=== PATIENT | female | born 1980 | race Caucasian/White ===

== ENCOUNTER 2021-09-16 07:35 | Inpatient (IN) ==
[2021-09-16] MEDS ORDERED: KETOROLAC 30 MG/ML VIAL IV ONE (07:52)
[2021-09-16] MEDS ORDERED: 0.9 % SODIUM CHLORIDE 1,000 ML IV ONE ×2 (07:52→08:40)
[2021-09-16] MEDS ORDERED: ONDANSETRON 4 MG/2 ML VIAL IV ONE (07:52)
--- NOTE | 2021-09-16 07:57 | Emergency Department Note ---
HPI General Chief complaint: Cold/Flu Symptoms Stated complaint: headache, sob, flank pain Time Seen by Provider: 09/16/21 07:38 Source: patient Mode of arrival: wheelchair Limitations: no limitations History of Present Illness HPI Narrative: Patient is a 41-year-old lady who arrives the emergency department by private vehicle accompanied by her complaining of left flank pain. The patient says she has been having pain over her left flank since yesterday. This was sudden in onset and is constantly present. The pain occasionally radiates into her left lower abdomen. She has associated fever and chills. She has had nausea but attributes this to recent medication change. She has not vomited. She does have an associated headache. She denies any associated cough or shortness of breath. She has not had any associated diarrhea or dysuria. Related Data Home Medications Medication Instructions Recorded Confirmed acetazolamide 500 mg 1,000 mg PO BID 01/14/16 09/16/21 capsule,extended release propranolol 10 mg tablet 40 mg PO DAILY 01/14/16 09/16/21 fluoxetine 20 mg capsule 80 mg PO DAILY cap 12/07/18 09/16/21 gabapentin 100 mg capsule 100 mg PO BID 12/07/18 09/13/21 insulin glargine 100 unit/mL 30 unit SUB-Q HS ml 12/07/18 09/13/21 subcutaneous solution etodolac 200 mg capsule 500 mg PO BID 08/11/21 09/16/21 loratadine 10 mg capsule 10 mg PO QDAY 08/11/21 09/13/21 tizanidine 2 mg capsule 4 - 8 mg PO 3-4XD 08/11/21 09/16/21 acetaminophen 300 mg-codeine 30 mg 1 tab PO TID PRN 09/07/21 09/13/21 tablet duloxetine 60 mg capsule,delayed 60 mg PO HS 09/07/21 09/16/21 release guaifenesin 600 mg tablet, 600 mg PO BID 09/07/21 09/16/21 extended release 12 hr rosuvastatin 10 mg tablet 20 mg PO QDAY 09/07/21 09/16/21 semaglutide 1 mg/dose (2 mg/1.5 1 mg SUBCUT QWEEK 09/07/21 09/13/21 mL) subcutaneous pen injector (Ozempic) vitamin d PO 09/07/21 09/13/21 codeine phosphate 60 mg hypodermic 60 mg ACHS 09/16/21 09/16/21 tablet Allergies Allergy/AdvReac Type Severity Reaction Status Date / Time glipizide Allergy Intermediate Fainting Verified 09/16/21 07:36 levofloxacin [From Levaquin] Allergy Dizziness Verified 09/16/21 07:36 metformin AdvReac Mild Rash Verified 09/16/21 07:36 Review of Systems ROS ROS Narrative: Narrative: All systems ED: reviewed and negative except as stated. Cardiovascular: Denies chest pain Gastrointestinal: Denies vomiting PFSH Narrative Patient History Narrative: Narrative: Medical/Surgical/Family History All Active Problems (Updated 09/16/21 @ 14:29 by Zak Rodríguez DO) Pyelonephritis (Acute) Sepsis (Acute) Acute hyperglycemia (Acute) Osteoarthritis of right hip (Acute) Neck pain (Chronic) Menorrhagia (Chronic) Borderline personality disorder (Chronic) Microscopic hematuria (Chronic) Hypertriglyceridemia (Chronic) Ureteric stone (Chronic) Hyperlipidemia (Chronic) Diabetes mellitus (Chronic) Allergic rhinitis (Chronic) Sinusitis (Chronic) Otitis media (Chronic) 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) Female pelvic inflammatory disease (Chronic) Pain in pelvis (Chronic) Nicotine dependence (Chronic) Ankle joint pain (Chronic) Right knee pain (Chronic) Knee injury (Chronic) Sprain of right ankle (Chronic) Anaphylaxis due to ingested food (Chronic) Pseudotumor cerebri (Chronic) Major depression (Chronic) Right hip pain (Chronic) Degeneration of lumbar intervertebral disc (Chronic) Other low back pain (Chronic) Strain of lumbar region (Chronic) Migraine (Chronic) Lumbar radiculopathy (Chronic) Injury of hand, right (Chronic) Hyperglycemia due to type 2 diabetes mellitus (Chronic) Hyperglycemia (Chronic) Dental abscess (Chronic) Anxiety disorder (Chronic) PTSD (post-traumatic stress disorder) (Chronic) Type 2 diabetes mellitus without complications (Chronic) GERD (gastroesophageal reflux disease) (Chronic) History of tobacco use (Chronic) Chronic depression (Chronic) Low back pain (Chronic) Opioid dependence, uncomplicated (Chronic) Chronic pain (Chronic) Urinary tract infection (Chronic) Viral meningitis (Chronic) Contusion, multiple sites (Chronic) Allergy, food (Chronic) Allergic reaction (Chronic) Ankle sprain and strain (Chronic) Medical History Allergic rhinitis Anaphylaxis due to ingested food Ankle joint pain Anxiety disorder Borderline personality disorder Chronic depression Chronic pain Contusion, multiple sites Degeneration of lumbar intervertebral disc Diabetes mellitus Female pelvic inflammatory disease GERD (gastroesophageal reflux disease) History of tobacco use HPV in female Hyperglycemia Hyperglycemia due to type 2 diabetes mellitus Hyperlipidemia Hypertriglyceridemia Injury of hand, right Knee injury Low back pain Lumbar radiculopathy Major depression Menorrhagia Microscopic hematuria Migraine Neck pain Nicotine dependence Opioid dependence, uncomplicated Other low back pain Otitis media Pain in pelvis Pseudotumor cerebri PTSD (post-traumatic stress disorder) Right hip pain Right knee pain Sinusitis Sprain of right ankle Strain of lumbar region Type 2 diabetes mellitus without complications Ureteric stone Urinary tract infection Viral meningitis Surgical History No pertinent past surgical history Family History Other No pertinent family history Social History Smoking Status: Current every day smoker Alcohol Intake Frequency: holiday/special occasion only Substance Use: does not use Exam Narrative Narrative: I reviewed the vital signs. Gen -patient is awake and alert and appears uncomfortable but in no acute distress. The patient is well groomed. HEENT -head is atraumatic. There is no conjunctival pallor or scleral icterus. Mucous membranes are moist. CV -S1-S2 regular rate and rhythm. Peripheral pulses are palpable. There is no JVD. Resp -breathing is nonlabored. Lungs are clear to auscultation bilaterally. There is no cyanosis. GI - Abdomen is soft and nontender to palpation. There is no guarding or rebound tenderness. There is exquisite left CVA tenderness to percussion. Derm -skin is warm and dry. There is no visible rash. MSK -present extremities are atraumatic. Psych -patient has appropriate affect. The patient does not appear internally stimulated. Neuro -patient answers questions appropriately with fluent speech. Patient moves all present extremities equally. General Limitations: no limitations Course Vital Signs Vital signs: Vital Signs Temperature 97.0 F 09/16/21 07:36 Pulse Rate 94 H 09/16/21 07:36 Respiratory Rate 16 09/16/21 07:36 Blood Pressure 80/55 09/16/21 07:36 Pulse Oximetry (%) 96 09/16/21 07:36 Temperature 97.0 F 09/16/21 07:36 Pulse Rate 98 H 09/16/21 13:45 Respiratory Rate 16 09/16/21 07:36 Blood Pressure 135/84 09/16/21 13:45 Pulse Oximetry (%) 95 09/16/21 13:45 [facility] Narrative Medical decision making narrative: I personally performed interpreted limited bedside renal ultrasound. There is no hydronephrosis. Patient presents with flank pain malaise and fatigue. She was hypotensive on arrival so we initiated resuscitation with IV crystalloids. Labs are remarkable for 21,000 white count and mildly elevated lactic acid. She also has ketonemia and acidosis. Overall presentation is consistent with pyelonephritis and res ulting early diabetic ketoacidosis. Given the patient's low blood pressure and overall ill appearance I did obtain a CT of her abdomen pelvis to evaluate for possible obstructive uropathy. This does not reveal any currently obstructing ureteral stones so I do not think she would benefit from immediate urologic consultation. Patient did have symptomatic improvement as well as improvement in her blood pressure with interventions provided in the emergency department. Repeat labs show no significant improvement in her electrolyte status. I discussed the test results with the patient and she is agreeable with plan for admission. I discussed the patient's history examination and diagnostic findings with Dr. Copeland, who agrees with the plan of care and accepts admission. Critical care time I provided 35 minutes of critical care time. This was in addition to any separately billable procedures. The patient was given IV fluids and IV antibiotics to treat her severe sepsis and resulting hypotension. She was given IV crystalloids and IV insulin to treat her diabetic ketoacidosis. The patient was closely monitored for response to treatment and stability of vital signs throughout their emergency department stay. Lab Data Lab results reviewed: Yes I reviewed the patient's lab results. Result diagrams: 09/16/21 08:14 Labs: Lab Results 09/16/21 09/16/21 09/16/21 Range/Units 08:10 08:14 08:14 WBC 21.0 H (4.5-11.0) K/mcL RBC 4.44 (3.59-5.38) M/mcL Hgb 13.7 (11.2-15.7) g/dL Hct 41.2 (34.1-44.9) % POC Hct (36-48) % MCV 92.8 (80.0-100.0) fL MCH 30.9 (26.0-34.0) pg MCHC 33.3 (31.0-36.0) g/dL RDW 13.1 (11.5-14.5) % Plt Count 234 (140-440) K/mcL MPV 12.1 H (7.4-10.4) fL Neut % (Auto) 85.3 H (38.0-78.0) % Lymph % (Auto) 3.6 L (15.5-49.0) % Casey % (Auto) 10.4 (1.0-12.0) % Eos % (Auto) 0.4 (0.0-7.0) % Baso % (Auto) 0.3 (0.0-2.0) % Lymph # (Auto) 0.76 L (1.50-4.80) K/mcL Casey # (Auto) 2.18 H (0.10-0.90) K/mcL Eos # (Auto) 0.09 (0.00-0.70) K/mcL Baso # (Auto) 0.07 (0.00-0.30) K/mcL Absolute Neutrophils 17.85 H (1.80-8.00) K/mcL VBG Lactic Acid 2.6 H (0.5-2.0) mmol/L POC Sodium (133-145) mEq/L POC Potassium (3.3-5.1) mEql/L POC Chloride (96-108) mEq/L POC Total CO2 (22-30) mmol/L POC BUN (6-20) mg/dL POC Creatinine (0.6-1.2) mg/dL POC Glucose (70-105) mg/dL POC WB Ioniz Calcium (1.16-1.32) mmEq/L Beta-Hydroxybutyrate (<0.27) mmol/L Urine Color TNP Urine Appearance TNP Urine pH TNP Ur Specific [place] TNP Urine Protein TNP Urine Glucose (UA) TNP Urine Ketones TNP Urine Occult Blood TNP Urine Nitrate TNP Urine Bilirubin TNP Urine Urobilinogen TNP Ur Leukocyte Esterase TNP Ur Culture Indicated? Yes 09/16/21 09/16/21 09/16/21 Range/Units 08:14 08:14 10:36 WBC (4.5-11.0) K/mcL RBC (3.59-5.38) M/mcL Hgb (11.2-15.7) g/dL Hct (34.1-44.9) % POC Hct 44 36 (36-48) % MCV (80.0-100.0) fL MCH (26.0-34.0) pg MCHC (31.0-36.0) g/dL RDW (11.5-14.5) % Plt Count (140-440) K/mcL MPV (7.4-10.4) fL Neut % (Auto) (38.0-78.0) % Lymph % (Auto) (15.5-49.0) % Casey % (Auto) (1.0-12.0) % Eos % (Auto) (0.0-7.0) % Baso % (Auto) (0.0-2.0) % Lymph # (Auto) (1.50-4.80) K/mcL Casey # (Auto) (0.10-0.90) K/mcL Eos # (Auto) (0.00-0.70) K/mcL Baso # (Auto) (0.00-0.30) K/mcL Absolute Neutrophils (1.80-8.00) K/mcL VBG Lactic Acid (0.5-2.0) mmol/L POC Sodium 131 L 133 (133-145) mEq/L POC Potassium 4.3 3.6 (3.3-5.1) mEql/L POC Chloride 103 107 (96-108) mEq/L POC Total CO2 15 L 14 L (22-30) mmol/L POC BUN 32 H 31 H (6-20) mg/dL POC Creatinine 1.7 H 1.4 H (0.6-1.2) mg/dL POC Glucose 592 H* 585 H* (70-105) mg/dL POC WB Ioniz Calcium 1.23 1.17 (1.16-1.32) mmEq/L Beta-Hydroxybutyrate 1.12 H (<0.27) mmol/L Urine Color Urine Appearance Urine pH Ur Specific [place] Urine Protein Urine Glucose (UA) Urine Ketones Urine Occult Blood Urine Nitrate Urine Bilirubin Urine Urobilinogen Ur Leukocyte Esterase Ur Culture Indicated? 09/16/21 Range/Units 13:00 WBC (4.5-11.0) K/mcL RBC (3.59-5.38) M/mcL Hgb (11.2-15.7) g/dL Hct (34.1-44.9) % POC Hct 36 (36-48) % MCV (80.0-100.0) fL MCH (26.0-34.0) pg MCHC (31.0-36.0) g/dL RDW (11.5-14.5) % Plt Count (140-440) K/mcL MPV (7.4-10.4) fL Neut % (Auto) (38.0-78.0) % Lymph % (Auto) (15.5-49.0) % Casey % (Auto) (1.0-12.0) % Eos % (Auto) (0.0-7.0) % Baso % (Auto) (0.0-2.0) % Lymph # (Auto) (1.50-4.80) K/mcL Casey # (Auto) (0.10-0.90) K/mcL Eos # (Auto) (0.00-0.70) K/mcL Baso # (Auto) (0.00-0.30) K/mcL Absolute Neutrophils (1.80-8.00) K/mcL VBG Lactic Acid (0.5-2.0) mmol/L POC Sodium 133 (133-145) mEq/L POC Potassium 3.7 (3.3-5.1) mEql/L POC Chloride 108 (96-108) mEq/L POC Total CO2 14 L (22-30) mmol/L POC BUN 30 H (6-20) mg/dL POC Creatinine 1.3 H (0.6-1.2) mg/dL POC Glucose 497 H* (70-105) mg/dL POC WB Ioniz Calcium 1.04 L (1.16-1.32) mmEq/L Beta-Hydroxybutyrate (<0.27) mmol/L Urine Color Urine Appearance Urine pH Ur Specific [place] Urine Protein Urine Glucose (UA) Urine Ketones Urine Occult Blood Urine Nitrate Urine Bilirubin Urine Urobilinogen Ur Leukocyte Esterase Ur Culture Indicated? ED POC Tests ED POC Tests: ERA - SARS Antigen Negative HCG POC Results Negative Discharge Plan Patient/Caregiver Discharge Instructions Pt seen by EDUCATIONAL PSYCHOLOGIST/PA only: No Clinical Impression: Pyelonephritis, Sepsis, Acute hyperglycemia Patient Disposition: Xfer As Inpt ([facility]) Follow up with: Carlie Berman ARNP [Primary Care Provider] - Prescriptions: No Action rosuvastatin 10 mg tablet 20 mg PO QDAY 0RF duloxetine 60 mg capsule,delayed release(DR/EC) 60 mg PO HS 0RF guaifenesin 600 mg tablet extended release 12hr 600 mg PO BID 0RF acetaminophen-codeine 300-30 mg tablet 1 tab PO TID PRN0RF vitamin d PO 0RF Ozempic 1 mg/dose (2 mg/1.5 mL) pen injector 1 mg subcut QWEEK 0RF loratadine 10 mg capsule 10 mg PO QDAY 0RF tizanidine 2 mg capsule 4 - 8 mg PO 3-4XD 0RF etodolac 200 mg capsule 500 mg PO BID 0RF gabapentin 100 mg capsule 100 mg PO BID 0RF acetazolamide 500 MG capsule, extended release 1,000 mg PO BID 0RF propranolol 10 MG tablet 40 mg PO DAILY 0RF fluoxetine 20 mg capsule 80 mg PO DAILY 0RF insulin glargine 100 unit/mL solution 30 unit SUB-Q HS 0RF Codeine Phosphate Soluble 60 mg Hypodermic Tablet 60 mg ACHS 0RF Rx Instructions: 60 mg PO 2 in the morning, 1 at night
[2021-09-16 08:40] LABS: POC Blood Urea Nitrogen 32 mg/dL (6-20); POC CO2 15 mmol/L (22-30); POC Calcium, Ionized 1.23 mmEq/L (1.16-1.32); POC Chloride 103 mEq/L (96-108); POC Creatinine 1.7 mg/dL (0.6-1.2); POC Glucose, Random 592 mg/dL (70-105); POC Hematocrit 44 % (36-48); POC Potassium 4.3 mEql/L (3.3-5.1); POC Sodium 131 mEq/L (133-145)
[2021-09-16] MEDS ORDERED: cefTRIAXone 1 GM VIAL IV ONE (08:40)
[2021-09-16] MEDS ORDERED: POTASSIUM CHLORIDE 40 MEQ in DEXTROSE 5% IN WATER 500 ML IV ONE (08:52)
[2021-09-16] MEDS ORDERED: HUMAN IV SCH (09:00)
[2021-09-16] MEDS ORDERED: SODIUM CHLORIDE 0.9% IV SCH (09:00)
[2021-09-16] MEDS ORDERED: INSULIN REGULAR IV SCH (09:00)
--- NOTE | 2021-09-16 09:22 | Cat Scan Report ---
CLINICAL INFORMATION: Bilateral flank pain COMPARISON: Abdomen and pelvic CT 12/04/2014 TECHNIQUE: 0.625 mm helical slices were obtained from the mid heart through the subtrochanteric regions. Following reconstruction, 2.5 mm sagittal, coronal and axial reformatted images were processed and reviewed at bone and soft tissue windows.The exam was performed using radiation dose optimization techniques including, but not limited to, automated exposure control, adjustment of the mA and/or kV according to patient size and use of iterative reconstruction technique. FINDINGS: The lung bases are clear. No effusions. The visualized heart is grossly normal. Abdominal images show the noncontrasted gallbladder and bile ducts, liver, adrenal glands, spleen, pancreas and aorta, including aortic branches, are normal in size, configuration and attenuation without focal lesion. There is no free air, free fluid or adenopathy. Both noncontrasted kidneys are normal and symmetric in size, position and configuration: The left is 13 cm in length and the right is 12 cm in length. There are multiple (greater than 20) small nonobstructing stones in the calyces of both kidneys ranging between 1 mm and 5 mm. Very slight left pyelocaliectasis appreciated and there is also mild left renal edema. No evidence of obstructing left ureteral stone. The patient likely had a left ureteral stone which is now passed. Pelvic images show normal noncontrasted urinary bladder. Uterus and both ovaries are normal in size, configuration and attenuation for age. The stomach, small bowel, appendix region and large bowel are grossly normal. Bone windows show no osseous abnormality. IMPRESSION: Mild edema in the left kidney with very slight pyelocaliectasis. No evidence of obstructing stone. Presumably, patient had a left ureteral stone which has now passed Multiple (greater than 20) nonobstructing stones in the calyces of both kidneys ranging between one and 5 mm. Interpreted and Authenticated by: Al Velazquez 09/16/21
[2021-09-16] MEDS ORDERED: INSULIN REGULAR, HUMAN 1 UNIT/0.01 ML UNIT IV ONE ×2 (09:25→10:52)
[2021-09-16 09:27] LABS: Culture Indicated,Urine Yes
[2021-09-16 09:30] LABS: Basophils # (Auto) 0.07 K/mcL (0.00-0.30); Basophils % (Auto) 0.3 % (0.0-2.0); Eosinophils # (Auto) 0.09 K/mcL (0.00-0.70); Eosinophils % (Auto) 0.4 % (0.0-7.0); Hematocrit 41.2 % (34.1-44.9); Hemoglobin 13.7 g/dL (11.2-15.7); Lymphocytes # (Auto) 0.76 K/mcL (1.50-4.80); Lymphocytes % (Auto) 3.6 % (15.5-49.0); Mean Cell Volume 92.8 fL (80.0-100.0); Mean Corpuscular HGB Conc 33.3 g/dL (31.0-36.0); Mean Platelet Volume 12.1 fL (7.4-10.4); Monocytes # (Auto) 2.18 K/mcL (0.10-0.90); Monocytes % (Auto) 10.4 % (1.0-12.0); Neutrophils % (Auto) 85.3 % (38.0-78.0); Platelet Count 234 K/mcL (140-440); RBC 4.44 M/mcL (3.59-5.38); Red Cell Distribution Width 13.1 % (11.5-14.5)
[2021-09-16 10:51] LABS: POC Blood Urea Nitrogen 31 mg/dL (6-20); POC CO2 14 mmol/L (22-30); POC Calcium, Ionized 1.17 mmEq/L (1.16-1.32); POC Chloride 107 mEq/L (96-108); POC Creatinine 1.4 mg/dL (0.6-1.2); POC Glucose, Random 585 mg/dL (70-105); POC Hematocrit 36 % (36-48); POC Potassium 3.6 mEql/L (3.3-5.1); POC Sodium 133 mEq/L (133-145)
[2021-09-16] MEDS ORDERED: LACTATED RINGERS 1,000 ML IV ONE (10:52)
[2021-09-16 13:14] LABS: POC Blood Urea Nitrogen 30 mg/dL (6-20); POC CO2 14 mmol/L (22-30); POC Calcium, Ionized 1.04 mmEq/L (1.16-1.32); POC Chloride 108 mEq/L (96-108); POC Creatinine 1.3 mg/dL (0.6-1.2); POC Glucose, Random 497 mg/dL (70-105); POC Hematocrit 36 % (36-48); POC Potassium 3.7 mEql/L (3.3-5.1); POC Sodium 133 mEq/L (133-145)
--- NOTE | 2021-09-16 14:36 | Internal Med History&Physical ---
HPI History of Present Illness Patient information: Note initiated : 09/16/21 at 2:34 pm Service Date, if different from initiated Date: [] Patient: Conchita Dyer 41 y/o F admitted on for headache, sob, flank pain. Chief Complaint: [left flank pain] Chief complaint: left flank pain History of present illness: Ms. Dyer is a 41 year old F h/o T2DM, depression, mixed dyslipidemia, kidney stones, p/w 2 days history of left flank pain. She denies any prior history of UTI; history of kidney stone with last flare years ago. For the last 2 days she has acute onset left flank pain, 10/10, sharp and pressure like, constant, radiates to LUQ and LLQ abdomen, exacerbating factor with any movement, alleviating factor rest. Denies any nausea, vomiting, fever, chills, sweating, dysuria, change in urinary frequency or urgency. Also c/o general body weakness. Vital signs significant for tachycardia with HR up to 100s bpm, rest of the vital signs within normal limits. Labs significant for leuckocytosis with WBC 21.0 Lactic acid 2.7. Blood glucose 585, initial anion gap 12, bicarb 14. Serum Cr level 1.4 with baseline 0.8. UA suggestive of presence of UA. CT abdomen pelvis showing mild edema in the left kidney with very slight pyelocaliectasis. No evidence of obstructing stone. Presumably patient had a left ureteral stone which has now passed. 3L NS bolus, 1gm Rocephin, and 20 unit regular insulin given in the ED. Constitutional Constitutional: Present fatigue; Absent chills, excessive sweating, fever(s) or weakness EENT Eyes: Absent blurry vision, change in vision, loss of vision or other visual disturbances Ears: Absent decreased hearing or tinnitus Nose, mouth and throat: Absent abnormal hearing, dry mouth, headache(s), nasal congestion or sore throat Cardiovascular Cardiovascular: Absent chest pain, chest pain at rest, edema, irregular heart rhythm or palpatations Respiratory Respiratory: Absent cough, dyspnea or wheezing Gastrointestinal Gastrointestinal: Present abdominal pain; Absent constipation, diarrhea, nausea or vomiting Genitourinary Genitourinary: Present as per HPI and flank pain Musculoskeletal Musculoskeletal: Absent back pain, deformity, limited range of motion, muscle c ramps, muscle weakness or numbness Integumentary Integumentary: Absent lesions, rash or wounds Neurological Neurological: Absent focal weakness, headache(s) or numbness Psychiatric Psychiatric: Absent anxiety, depression or hallucinations PFSH PFSH All Active Problems (Updated 09/16/21 @ 14:48 by Osmar Copeland MD) Stage 1 acute kidney injury (Acute) Depression (Acute) Cigarette smoker (Acute) Uncontrolled type 2 diabetes mellitus (Acute) Pyelonephritis (Acute) Sepsis (Acute) Acute hyperglycemia (Acute) Osteoarthritis of right hip (Acute) Neck pain (Chronic) Menorrhagia (Chronic) Borderline personality disorder (Chronic) Microscopic hematuria (Chronic) Hypertriglyceridemia (Chronic) Ureteric stone (Chronic) Hyperlipidemia (Chronic) Diabetes mellitus (Chronic) Allergic rhinitis (Chronic) Sinusitis (Chronic) Otitis media (Chronic) 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) Female pelvic inflammatory disease (Chronic) Pain in pelvis (Chronic) Nicotine dependence (Chronic) Ankle joint pain (Chronic) Right knee pain (Chronic) Knee injury (Chronic) Sprain of right ankle (Chronic) Anaphylaxis due to ingested food (Chronic) Pseudotumor cerebri (Chronic) Major depression (Chronic) Right hip pain (Chronic) Degeneration of lumbar intervertebral disc (Chronic) Other low back pain (Chronic) Strain of lumbar region (Chronic) Migraine (Chronic) Lumbar radiculopathy (Chronic) Injury of hand, right (Chronic) Hyperglycemia due to type 2 diabetes mellitus (Chronic) Hyperglycemia (Chronic) Dental abscess (Chronic) Anxiety disorder (Chronic) PTSD (post-traumatic stress disorder) (Chronic) Type 2 diabetes mellitus without complications (Chronic) GERD (gastroesophageal reflux disease) (Chronic) History of tobacco use (Chronic) Chronic depression (Chronic) Low back pain (Chronic) Opioid dependence, uncomplicated (Chronic) Chronic pain (Chronic) Urinary tract infection (Chronic) Viral meningitis (Chronic) Contusion, multiple sites (Chronic) Allergy, food (Chronic) Allergic reaction (Chronic) Ankle sprain and strain (Chronic) Medical History Allergic rhinitis Anaphylaxis due to ingested food Ankle joint pain Anxiety disorder Borderline personality disorder Chronic depression Chronic pain Contusion, multiple sites Degeneration of lumbar intervertebral disc Diabetes mellitus Female pelvic inflammatory disease GERD (gastroesophageal reflux disease) History of tobacco use HPV in female Hyperglycemia Hyperglycemia due to type 2 diabetes mellitus Hyperlipidemia Hypertriglyceridemia Injury of hand, right Knee injury Low back pain Lumbar radiculopathy Major depression Menorrhagia Microscopic hematuria Migraine Neck pain Nicotine dependence Opioid dependence, uncomplicated Other low back pain Otitis media Pain in pelvis Pseudotumor cerebri PTSD (post-traumatic stress disorder) Right hip pain Right knee pain Sinusitis Sprain of right ankle Strain of lumbar region Type 2 diabetes mellitus without complications Ureteric stone Urinary tract infection Viral meningitis Surgical History No pertinent past surgical history Family History Other No pertinent family history Social History (Updated 12/07/18 @ 14:26 by Lisa Rivas PA-C) alcohol intake frequency: holiday/special occasion only substance use type: does not use MEDS/ALLERGIES Home Medications and Allergies Home Medications Medication Instructions Recorded Confirmed Type acetazolamide 500 mg 1,000 mg PO BID 01/14/16 09/16/21 History capsule,extended release propranolol 10 mg tablet 40 mg PO DAILY 01/14/16 09/16/21 History fluoxetine 20 mg capsule 80 mg PO DAILY cap 12/07/18 09/16/21 History gabapentin 100 mg capsule 100 mg PO BID 12/07/18 09/13/21 History insulin glargine 100 unit/mL 30 unit SUB-Q HS ml 12/07/18 09/13/21 History subcutaneous solution etodolac 200 mg capsule 500 mg PO BID 08/11/21 09/16/21 History loratadine 10 mg capsule 10 mg PO QDAY 08/11/21 09/13/21 History tizanidine 2 mg capsule 4 - 8 mg PO 3-4XD 08/11/21 09/16/21 History acetaminophen 300 mg-codeine 30 mg 1 tab PO TID PRN 09/07/21 09/13/21 History tablet duloxetine 60 mg capsule,delayed 60 mg PO HS 09/07/21 09/16/21 History release guaifenesin 600 mg tablet, 600 mg PO BID 09/07/21 09/16/21 History extended release 12 hr rosuvastatin 10 mg tablet 20 mg PO QDAY 09/07/21 09/16/21 History semaglutide 1 mg/dose (2 mg/1.5 1 mg SUBCUT QWEEK 09/07/21 09/13/21 History mL) subcutaneous pen injector (Ozempic) vitamin d PO 09/07/21 09/13/21 History codeine phosphate 60 mg hypodermic 60 mg ACHS 09/16/21 09/16/21 History tablet Allergies Allergy/AdvReac Type Severity Reaction Status Date / Time glipizide Allergy Intermediate Fainting Verified 09/16/21 07:36 levofloxacin [From Levaquin] Allergy Dizziness Verified 09/16/21 07:36 metformin AdvReac Mild Rash Verified 09/16/21 07:36 EXAM Constitutional Vitals: Temp Pulse Resp BP Pulse Ox 36.1 C 98 H 16 135/84 95 09/16/21 07:36 09/16/21 13:45 09/16/21 07:36 09/16/21 13:45 09/16/21 13:45 General appearance: cooperative, mild distress and obese Head Head exam: Present atraumatic and normocephalic Eye Eye exam: Present EOMI and PERRL ENT ENT exam: Present mucous membranes moist, normal exam and normal external ear exam Neck Neck exam: Present normal inspection; Absent lymphadenopathy, tenderness or thyromegaly Respiratory Respiratory exam: Absent accessory muscle use, respiratory distress or wheezes Cardiovascular Cardiovascular exam: Present tachycardia; Absent JVD GI/Abdominal GI/Abdominal exam: Present normal bowel sounds and soft; Absent organomegaly or tenderness Extremities Exam Extremities exam: Present full ROM, normal capillary refill and normal inspection; Absent tenderness Back Exam Back exam: Present CVA tenderness (L) Neurological Exam Neurological exam: Present alert, CN II-XII intact and oriented X3; Absent motor sensory deficit Psychiatric Psychiatric exam: Present normal affect and normal mood; Absent anxious or depressed Skin Skin exam: Present dry and intact DATA Data Completed and Pending Labs: Labs from last 24 hours 09/16/21 09/16/21 09/16/21 13:00 10:36 08:14 WBC RBC Hgb Hct POC Hct 36 36 MCV MCH MCHC RDW Plt Count MPV Neut % (Auto) Lymph % (Auto) [place] % (Auto) Eos % (Auto) Baso % (Auto) Lymph # (Auto) [place] # (Auto) Eos # (Auto) Baso # (Auto) Absolute Neutrophils VBG Lactic Acid POC Sodium 133 133 POC Potassium 3.7 3.6 POC Chloride 108 107 POC Total CO2 14 L 14 L POC BUN 30 H 31 H POC Creatinine 1.3 H 1.4 H POC Glucose 497 H* 585 H* POC WB Ioniz Calcium 1.04 L 1.17 Beta-Hydroxybutyrate 1.12 H Urine Color Urine Appearance Urine pH Ur Specific [place] Urine Protein Urine Glucose (UA) Urine Ketones Urine Occult Blood Urine Nitrate Urine Bilirubin Urine Urobilinogen Ur Leukocyte Esterase Ur Culture Indicated? 09/16/21 09/16/21 09/16/21 08:14 08:14 08:14 WBC 21.0 H RBC 4.44 Hgb 13.7 Hct 41.2 POC Hct 44 MCV 92.8 MCH 30.9 MCHC 33.3 RDW 13.1 Plt Count 234 MPV 12.1 H Neut % (Auto) 85.3 H Lymph % (Auto) 3.6 L [place] % (Auto) 10.4 Eos % (Auto) 0.4 Baso % (Auto) 0.3 Lymph # (Auto) 0.76 L [place] # (Auto) 2.18 H Eos # (Auto) 0.09 Baso # (Auto) 0.07 Absolute Neutrophils 17.85 H VBG Lactic Acid 2.6 H POC Sodium 131 L POC Potassium 4.3 POC Chloride 103 POC Total CO2 15 L POC BUN 32 H POC Creatinine 1.7 H POC Glucose 592 H* POC WB Ioniz Calcium 1.23 Beta-Hydroxybutyrate Urine Color Urine Appearance Urine pH Ur Specific [place] Urine Protein Urine Glucose (UA) Urine Ketones Urine Occult Blood Urine Nitrate Urine Bilirubin Urine Urobilinogen Ur Leukocyte Esterase Ur Culture Indicated? 09/16/21 08:10 WBC RBC Hgb Hct POC Hct MCV MCH MCHC RDW Plt Count MPV Neut % (Auto) Lymph % (Auto) [place] % (Auto) Eos % (Auto) Baso % (Auto) Lymph # (Auto) [place] # (Auto) Eos # (Auto) Baso # (Auto) Absolute Neutrophils VBG Lactic Acid POC Sodium POC Potassium POC Chloride POC Total CO2 POC BUN POC Creatinine POC Glucose POC WB Ioniz Calcium Beta-Hydroxybutyrate Urine Color TNP Urine Appearance TNP Urine pH TNP Ur Specific [place] TNP Urine Protein TNP Urine Glucose (UA) TNP Urine Ketones TNP Urine Occult Blood TNP Urine Nitrate TNP Urine Bilirubin TNP Urine Urobilinogen TNP Ur Leukocyte Esterase TNP Ur Culture Indicated? Yes A/P Assessment and plan (1) Pyelonephritis: Status: Acute (2) Sepsis: Status: Acute (3) Uncontrolled type 2 diabetes mellitus: Status: Acute (4) Hyperlipidemia: Status: Chronic (5) Cigarette smoker: Status: Acute (6) Depression: Status: Acute (7) Stage 1 acute kidney injury: Status: Acute Narrative A/P Narrative: Assessment and Plans: 1. Left pyelonephritis with associated sepsis, presumably secondary to left ureteral stone which has now passed: Admit to inpatient PCU telemetry Serial lactic acid Procalcitonin level Blood culture Urine culture cbc w/ auto diff in the morning to trend WBC level s/p 3L NS bolus given in the ED, to be followed by NS@150cc/hr Rocephin Tylenol PRN fever Toradol IV PRN pain Morphine IV PRN pain 2. Uncontrolled T2DM, no DKA/HHS: s/p 3L NS bolus given in the ED, to be followed by NS@150cc/hr s/p 20 unit regular insulin given in the ED HgA1c Hold oral hypoglycemics Insulin glargine 30 unit HS High dose correctional scale insulin AC HS Accu Chek AC HS Hypoglycemia protocol Diabetic diet 3. Stage 1 acute kidney injusy: Avoid nephrotoxic agents s/p 3L NS bolus given in the ED, to be followed by NS@150cc/hr CMP in the morning to trend kidney functions 4. Hyperlipidemia: Continue statin therapy 5. Depression: Fluoxetine 6. 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
[2021-09-16] MEDS ORDERED: morphine 2 MG/ML VIAL IV PRN ×2 (15:53→22:05)
[2021-09-16] MEDS ORDERED: DEXTROSE 50% 50 ML VIAL IV PRN (15:53)
[2021-09-16] MEDS ORDERED: DEXTROSE 31 GM ORAL.SUSP PO PRN (15:53)
[2021-09-16] MEDS ORDERED: ACETAMINOPHEN W/CODEINE #3 1 TABLET PO PRN (15:53)
[2021-09-16] MEDS ORDERED: LACTULOSE 20 GM/30 ML ORAL.SOL PO PRN (15:53)
[2021-09-16] MEDS ORDERED: IPRATROPIUM/ALBUTEROL 3 ML AMPUL.NEB NEB PRN (15:53)
[2021-09-16] MEDS ORDERED: SENNOSIDES 1 TABLET PO PRN (15:53)
[2021-09-16] MEDS: 0.9 % SODIUM CHLORIDE 1,000 ML IV SCH ×2 (16:03→23:16)
[2021-09-16 16:14] LABS: Appearance,Urine CLOUDY (Clear); Bacteria,Urine FEW /hpf (0); Bilirubin,Urine Negative (Negative); Color,Urine YELLOW; Culture Indicated,Urine No; Glucose,Urine (UA) >=500 mg/dL (Negative); Ketones,Urine 5 mg/dL (Negative); Leukocyte Esterase,Urine 75 /uL (Negative); Nitrate,Urine Negative (Negative); Protein,Urine 100 mg/dL (Negative); Specific Gravity,Urine 1.024 (1.000-1.035); Urine Blood >=1.0 mg/dL (Negative); Urine RBC 19 /hpf (0-3); Urine Squamous Epithelial Cell 12 /hpf (0-4); Urine WBC 69 /hpf (0-4)
[2021-09-16] MEDS ORDERED: NALOXONE HCL 0.4 MG/ML VIAL ONE (16:23)
[2021-09-16] MEDS ORDERED: NALOXONE HCL 0.4 MG/ML VIAL IV PRN (16:26)
[2021-09-16] MEDS: ACETAMINOPHEN 325 MG TABLET PO PRN ×2 (16:51→23:14)
[2021-09-16] MEDS ORDERED: INSULIN LISPRO 1 UNIT/0.01 ML UNIT SQ SCH ×2 (17:00→18:30)
[2021-09-16] MEDS ORDERED: [UNRECOGNIZED DRUG - OTHER] PO SCH (17:00)
[2021-09-16 18:14] LABS: Hemoglobin A1C 11.2 % Hgb (4.0-6.0)
[2021-09-16] MEDS: HEPARIN 5,000 UNIT/ML VIAL SQ SCH (20:07)
[2021-09-16] MEDS: ATORVASTATIN 40 MG TABLET PO SCH (20:08)
[2021-09-16] MEDS: INSULIN LISPRO 1 UNIT/0.01 ML UNIT SQ SCH (20:08)
[2021-09-16] MEDS: GABAPENTIN 100 MG CAPSULE PO SCH (20:08)
[2021-09-16] MEDS: guaiFENesin 600 MG TAB.SR.12H PO SCH (20:08)
[2021-09-16] MEDS: DOCUSATE SODIUM 100 MG CAPSULE PO SCH (20:08)
[2021-09-16] MEDS: DULoxetine 30 MG CAPSULE PO SCH (20:08)
[2021-09-16] MEDS: ETODOLAC 400 MG TABLET PO SCH (20:09)
[2021-09-16] MEDS: INSULIN GLARGINE, HUMAN 1 UNIT/0.01 ML SQ SCH (21:43)
[2021-09-16] MEDS ORDERED: IBUPROFEN 600 MG TABLET PO PRN (21:49)
[2021-09-16] MEDS: 0.9 % SODIUM CHLORIDE 10 ML SYRINGE IV SCH (21:54)
[2021-09-17] MEDS: INSULIN LISPRO 1 UNIT/0.01 ML UNIT SQ SCH ×6 (00:03→20:23)
[2021-09-17] MEDS: 0.9 % SODIUM CHLORIDE 10 ML SYRINGE IV SCH ×2 (05:20→13:05)
--- NOTE | 2021-09-17 05:36 | Cat Scan Report ---
CLINICAL INFORMATION: Unresponsive COMPARISON: None. TECHNIQUE: 2.5 mm helical slices were obtained in the skull base to vertex. Following reconstruction, axial reformatted images were reviewed at bone and parenchymal windows. The exam was performed using radiation dose optimization techniques including, but not limited to, automated exposure control, adjustment of the mA and/or kV according to patient size and use of iterative reconstruction technique. FINDINGS: The ventricles, sulci, fissures, and cisterns are normal in size and configuration. No extra-axial fluid collections are identified. The cerebrum, brainstem and cerebellum are unremarkable. There is no evidence of hemorrhage, mass effect, or edema. Bone windows show no osseous abnormality. IMPRESSION: Normal head CT without contrast. Interpreted and Authenticated by: Al Velazquez 09/17/21
[2021-09-17] MEDS: 0.9 % SODIUM CHLORIDE 1,000 ML IV SCH ×3 (05:49→19:58)
[2021-09-17 06:55] LABS: Basophils # (Auto) 0.05 K/mcL (0.00-0.30); Basophils % (Auto) 0.4 % (0.0-2.0); Eosinophils # (Auto) 0.22 K/mcL (0.00-0.70); Eosinophils % (Auto) 1.6 % (0.0-7.0); Hematocrit 36.7 % (34.1-44.9); Lymphocytes # (Auto) 0.83 K/mcL (1.50-4.80); Lymphocytes % (Auto) 6.2 % (15.5-49.0); Mean Cell Volume 93.1 fL (80.0-100.0); Mean Corpuscular HGB Conc 32.7 g/dL (31.0-36.0); Mean Platelet Volume 12.3 fL (7.4-10.4); Monocytes # (Auto) 1.27 K/mcL (0.10-0.90); Monocytes % (Auto) 9.4 % (1.0-12.0); Neutrophils % (Auto) 82.4 % (38.0-78.0); Platelet Count 179 K/mcL (140-440); RBC 3.94 M/mcL (3.59-5.38); Red Cell Distribution Width 13.2 % (11.5-14.5); WBC 13.5 K/mcL (4.5-11.0)
[2021-09-17 07:10] LABS: ALT/SGPT 12 U/L (<40); AST/SGOT 13 U/L (<32); Albumin 2.9 gm/dL (3.2-5.2); Albumin/Globulin Ratio 0.8 (1.0-2.3); Alkaline Phosphatase 112 U/L (39-117); Bilirubin,Total 0.2 mg/dL (0.1-1.0); Blood Urea Nitrogen 22 mg/dL (6-20); Calcium 8.4 mg/dL (8.6-10.4); Carbon Dioxide 14 mmol/L (22-30); Chloride 107 mmol/L (96-108); Globulin 3.5 gm/dL (2.2-3.7); Glomerular Filtration Rate 70; Glucose 168 mg/dL (70-105); Phosphorous 1.7 mg/dL (2.5-4.5)
[2021-09-17] MEDS: KETOROLAC 30 MG/ML VIAL IV PRN ×2 (07:30→14:24)
[2021-09-17] MEDS ORDERED: POTASSIUM CHLORIDE 20 MEQ TABLET PO PRN (08:58)
[2021-09-17] MEDS ORDERED: POTASSIUM PHOSPHATE 20 MEQ in DEXTROSE 5% IN WATER 250 ML IV ONE (09:00)
--- NOTE | 2021-09-17 09:03 | Internal Med Progress Note ---
SUBJECTIVE Subjective Patient information: Note initiated : 09/17/21 at 8:59 am Service Date, if different from initiated Date: [] Patient: Conchita Dyer 41 y/o F admitted on 09/16/21 for headache, sob, flank pain. Chief Complaint: [] Interval history: Ms. Dyer is a 41 year old F h/o T2DM, depression, mixed dyslipidemia, kidney stones, p/w 2 days history of left flank pain. She denies any prior history of UTI; history of kidney stone with last flare years ago. For the last 2 days she has acute onset left flank pain, 10/10, sharp and pressure like, constant, radiates to LUQ and LLQ abdomen, exacerbating factor with any movement, a lleviating factor rest. Denies any nausea, vomiting, fever, chills, sweating, dysuria, change in urinary frequency or urgency. Also c/o general body weakness. Vital signs significant for tachycardia with HR up to 100s bpm, rest of the vital signs within normal limits. Labs significant for leuckocytosis with WBC 21.0 Lactic acid 2.7. Blood glucose 585, initial anion gap 12, bicarb 14. Serum Cr level 1.4 with baseline 0.8. UA suggestive of presence of UA. CT abdomen pelvis showing mild edema in the left kidney with very slight pyelocaliectasis. No evidence of obstructing stone. Presumably patient had a left ureteral stone which has now passed. 3L NS bolus, 1gm Rocephin, and 20 unit regular insulin given in the ED. 09/17: Afebrile overnight. WBC 21.0-->13.5. Blood and urine cultures no growth to date. c/o headache, diffused, 4/10, sharp. Denies left flank pain. Denies fever or chills or sweating. Denies nausea or vomiting. c/o poor appetite. c/o general body weakness. Constitutional Vitals: Vital Signs Temp Pulse Resp BP Pulse Ox 36.7 C 93 H 20 133/83 94 09/17/21 08:00 09/17/21 08:00 09/17/21 08:00 09/17/21 08:00 09/17/21 08:00 Period Temp Pulse Resp BP Sys/Cain Pulse Ox Last 24 Hr 36.1 C-37.6 C 80-111 16-20 88-138/61-89 92-97 Intake and Output 09/16/21 09/17/21 09/17/21 21:59 05:59 13:59 Intake Total 1521982 Output Total 0 Balance 1519 1982 0 Weight 99.473 kg Intake & Output: Intake & Output 09/16/21 09/17/21 09/17/21 21:59 05:59 13:59 Intake Total 1519 1982 Output Total 0 Balance 1519 1982 0 Weight 99.473 kg Intake: IV 1521982 Sodium Chloride 0.9% 1,000 ml @ 1982 150 mls/hr IV .Q6H40M MARI Rx#: [id number] Lactated Ringers 1,000 ml @ 1000 Wide Open IV BOLUS ONE Rx#: [id number] Potassium Chloride 40 Meq In 520 Dextrose 5% in Water 500 ml @ 130 mls/hr IV ONCE ONE Rx#: [id number] Output: # of times incontinent of urine 0 Other: Stool Size Moderate Stool Color Brown Stool Consistency Formed # Voids 1 # Bowel Movements 1 General appearance: cooperative, mild distress and obese Head Head exam: Present atraumatic and normal inspection Eye Eye exam: Present normal appearance ENT ENT exam: Present mucous membranes moist, normal exam and normal external ear exam Neck Neck exam: Present normal inspection Respiratory Respiratory exam: Present normal respiratory exam Cardiovascular Cardiovascular exam: Present normal rate and rhythm GI/Abdominal GI/Abdominal exam: Present normal bowel sounds Back Exam Back exam: Present CVA tenderness (L) and normal inspection Neurological Exam Neurological exam: Present alert and oriented X3 Skin Skin exam: Present intact and warm OBJ DATA Labs CBC & Chem 7: 09/17/21 05:10 09/17/21 05:10 Labs: Abnormal Lab Results 09/17/21 09/17/21 09/16/21 05:10 05:10 14:52 WBC 13.5 H MPV 12.3 H Neut % (Auto) 82.4 H Lymph % (Auto) 6.2 L Lymph # (Auto) 0.[address] [place] # (Auto) 1.27 H Absolute Neutrophils 11.12 H VBG Lactic Acid POC Sodium Sodium 131 L Carbon Dioxide 14 L POC Total CO2 POC BUN BUN 22 H POC Creatinine Glucose 168 H POC Glucose Hemoglobin A1c Calcium 8.4 L POC WB Ioniz Calcium Phosphorus 1.7 L Albumin 2.9 L Albumin/Globulin Ratio 0.8 L Beta-Hydroxybutyrate Procalcitonin Urine Appearance Cloudy A Urine Protein 100 A Urine Glucose (UA) >=500 A Urine Ketones 5 A Urine Occult Blood >=1.0 A Urine Urobilinogen 2.0 A Ur Leukocyte Esterase 75 A Urine RBC 19 H Urine WBC 69 H Ur Squamous Epith Cells 12 H Urine Bacteria Few A 09/16/21 09/16/21 09/16/21 13:00 10:36 08:14 WBC MPV Neut % (Auto) Lymph % (Auto) Lymph # (Auto) [facility] # (Auto) Absolute Neutrophils VBG Lactic Acid POC Sodium Sodium Carbon Dioxide POC Total CO2 14 L 14 L POC BUN 30 H 31 H BUN POC Creatinine 1.3 H 1.4 H Glucose POC Glucose 497 H* 585 H* Hemoglobin A1c Calcium POC WB Ioniz Calcium 1.04 L Phosphorus Albumin Albumin/Globulin Ratio Beta-Hydroxybutyrate Procalcitonin 5.78 H Urine Appearance Urine Protein Urine Glucose (UA) Urine Ketones Urine Occult Blood Urine Urobilinogen Ur Leukocyte Esterase Urine RBC Urine WBC Ur Squamous Epith Cells Urine Bacteria 09/16/21 09/16/21 09/16/21 08:14 08:14 08:14 WBC MPV Neut % (Auto) Lymph % (Auto) Lymph # (Auto) [facility] # (Auto) Absolute Neutrophils VBG Lactic Acid POC Sodium 131 L Sodium Carbon Dioxide POC Total CO2 15 L POC BUN 32 H BUN POC Creatinine 1.7 H Glucose POC Glucose 592 H* Hemoglobin A1c 11.2 H Calcium POC WB Ioniz Calcium Phosphorus Albumin Albumin/Globulin Ratio Beta-Hydroxybutyrate 1.12 H Procalcitonin Urine Appearance Urine Protein Urine Glucose (UA) Urine Ketones Urine Occult Blood Urine Urobilinogen Ur Leukocyte Esterase Urine RBC Urine WBC Ur Squamous Epith Cells Urine Bacteria 09/16/21 09/16/21 08:14 08:14 WBC 21.0 H MPV 12.1 H Neut % (Auto) 85.3 H Lymph % (Auto) 3.6 L Lymph # (Auto) 0.[address] [facility] # (Auto) 2.18 H Absolute Neutrophils 17.85 H VBG Lactic Acid 2.6 H POC Sodium Sodium Carbon Dioxide POC Total CO2 POC BUN BUN POC Creatinine Glucose POC Glucose Hemoglobin A1c Calcium POC WB Ioniz Calcium Phosphorus Albumin Albumin/Globulin Ratio Beta-Hydroxybutyrate Procalcitonin Urine Appearance Urine Protein Urine Glucose (UA) Urine Ketones Urine Occult Blood Urine Urobilinogen Ur Leukocyte Esterase Urine RBC Urine WBC Ur Squamous Epith Cells Urine Bacteria Meds: Medications Acetaminophen (Acetaminophen 325 Mg Tablet) 650 mg PO Q6HP PRN; Protocol PRN Reason: Per Pain Protocol/Fever > 101 Last Admin: 09/16/21 23:14 Dose: 650 mg Documented by: Acetaminophen/Butalbital/Caffeine (Butalb/Acetaminophen/Caffeine 1 Tablet) 1 tab PO Q6HP PRN PRN Reason: Headache Albuterol/Ipratropium (Ipratropium/Albuterol 3 Ml Ampul.Neb) 3 ml NEB Q4HRT PRN PRN Reason: Wheezing Atorvastatin Calcium (Atorvastatin 40 Mg Tablet) 40 mg PO [facility] Last Admin: 09/16/21 20:08 Dose: 40 mg Documented by: Dextrose (Dextrose 50% 50 Ml Vial) 0 ml IV UD PRN PRN Reason: Hypoglycemia Diagnostic Test (Pha) (Accu-Chek 1 Each Strip) 1 each FS Q4 COUNTS INCLUDE 234 BEDS AT THE [facility] Last Admin: 09/17/21 07:22 Dose: 1 each Documented by: Docusate Sodium (Docusate Sodium 100 Mg Capsule) 100 mg PO BID COUNTS INCLUDE 234 BEDS AT THE [facility] Last Admin: 09/16/21 20:08 Dose: 100 mg Documented by: Duloxetine HCl (Duloxetine 30 Mg Capsule) 60 mg PO [facility] Last Admin: 09/16/21 20:08 Dose: 60 mg Documented by: Etodolac (Etodolac 400 Mg Tablet) 400 mg PO BID COUNTS INCLUDE 234 BEDS AT THE [facility] Last Admin: 09/16/21 20:09 Dose: Not Given Documented by: Fluoxetine HCl (Fluoxetine Hcl 20 Mg Capsule) 80 mg PO DAILY COUNTS INCLUDE 234 BEDS AT THE [facility] Gabapentin (Gabapentin 100 Mg Capsule) 100 mg PO BID COUNTS INCLUDE 234 BEDS AT THE [facility] Last Admin: 09/16/21 20:08 Dose: 100 mg Documented by: Glucose (Dextrose 31 Gm Oral.Susp) 15 gm PO PRN PRN PRN Reason: Hypoglycemia Guaifenesin (Guaifenesin 600 Mg Tab.Sr.12h) 600 mg PO BID COUNTS INCLUDE 234 BEDS AT THE [facility] Last Admin: 09/16/21 20:08 Dose: 600 mg Documented by: Heparin Sodium (Porcine) (Heparin 5,000 Unit/Ml Vial) 5,000 unit SQ Q12 COUNTS INCLUDE 234 BEDS AT THE [facility] Last Admin: 09/16/21 20:07 Dose: 5,000 unit Documented by: Sodium Chloride (Sodium Chloride 0.9%) 1,000 mls @ 150 mls/hr IV .Q6H40M COUNTS INCLUDE 234 BEDS AT THE [facility] Last Admin: 09/17/21 05:49 Dose: 150 mls/hr Documented by: Ceftriaxone Sodium 2 gm/ (Dextrose) 50 mls @ 100 mls/hr IV Q24H COUNTS INCLUDE 234 BEDS AT THE [facility]; Protocol Potassium Phosphate 20 meq/ (Dextrose) 254.5455 mls @ 127.273 mls/hr IV ONCE ONE Stop: 09/17/21 10:59 Insulin Glargine (Insulin Glargine, Human 1 Unit/0.01 Ml) 30 unit SQ HS COUNTS INCLUDE 234 BEDS AT THE [facility] Last Admin: 09/16/21 21:43 Dose: 30 unit Documented by: Insulin Human Lispro (Insulin Lispro 1 Unit/0.01 Ml Unit) 0 unit SQ Q4H COUNTS INCLUDE 234 BEDS AT THE [facility]; Protocol Last Admin: 09/17/21 07:22 Dose: 3 unit Documented by: Iron Carb/Multivit/Valley/Folic Acid (Multivit,Ther Iron,Ca,Fa & Min 1 Tablet) 1 tab PO DAILY COUNTS INCLUDE 234 BEDS AT THE [facility] Ketorolac Tromethamine (Ketorolac 30 Mg/Ml Vial) 30 mg IV Q6HP PRN PRN Reason: Per Pain Protocol Stop: 09/18/21 14:33 Last Admin: 09/17/21 07:30 Dose: 30 mg Documented by: Lactulose (Lactulose 20 Gm/30 Ml Oral.Hillary) 10 gm PO DAILYP PRN PRN Reason: Constipation Loratadine (Loratadine 10 Mg Tablet) 10 mg PO DAILY COUNTS INCLUDE 234 BEDS AT THE [facility] Morphine Sulfate (Morphine 2 Mg/Ml Vial) 2 mg IV Q4HP PRN; Protocol PRN Reason: Per Pain Protocol Last Admin: 09/17/21 01:08 Dose: 2 mg Documented by: Naloxone HCl (Naloxone Hcl 0.4 Mg/Ml Vial) 0.4 mg IV Q10M PRN PRN Reason: Opiate Reversal Last Admin: 09/16/21 16:19 Dose: 0.4 mg Documented by: Ondansetron HCl (Ondansetron 4 Mg/2 Ml Vial) 4 mg IV Q4HP PRN; Protocol PRN Reason: Nausea And Vomiting Propranolol HCl (Propranolol 10 Mg Tablet) 40 mg PO DAILY COUNTS INCLUDE 234 BEDS AT THE [facility] Senna (Sennosides 1 Tablet) 2 tab PO HSP PRN PRN Reason: Constipation Sodium Chloride (0.9 % Sodium Chloride 10 Ml Syringe) 10 ml IV Q8 COUNTS INCLUDE 234 BEDS AT THE [facility] Last Admin: 09/17/21 05:20 Dose: Not Given Documented by: A/P Assessment and plan (1) Pyelonephritis: Status: Acute (2) Sepsis: Status: Acute (3) Uncontrolled type 2 diabetes mellitus: Status: Acute (4) Hyperlipidemia: Status: Chronic (5) Cigarette smoker: Status: Acute (6) Depression: Status: Acute (7) Stage 1 acute kidney injury: Status: Acute (8) Headache: Status: Acute Narrative A/P Narrative: Assessment and Plans: 1. Left pyelonephritis with associated sepsis, presumably secondary to left ureteral stone which has now passed: Stays in inpatient PCU telemetry Serial lactic acid Procalcitonin level Blood culture, no growth to date Urine culture, no growth to date cbc w/ auto diff in the morning to trend WBC level s/p 3L NS bolus given in the ED, to be followed by NS@150cc/hr Rocephin Tylenol PRN fever Toradol IV PRN pain Morphine IV PRN pain 2. Uncontrolled T2DM, no DKA/HHS: s/p 3L NS bolus given in the ED, to be followed by NS@150cc/hr s/p 20 unit regular insulin given in the ED HgA1c Hold oral hypoglycemics Insulin glargine 30 unit HS High dose correctional scale insulin AC HS Accu Chek AC HS Hypoglycemia protocol Diabetic diet 3. Stage 1 acute kidney injury: RESOLVED Avoid nephrotoxic agents s/p 3L NS bolus given in the ED, to be followed by NS@150cc/hr CMP in the morning to trend kidney functions 4. Hyperlipidemia: Continue statin therapy 5. Depression: Fluoxetine 6. 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 Headache: Fioricet PRN headache Toradol PRN headache GI ppx: not currently indicated DVT ppx: heparin Code status: DNI DNR Prognosis: guarded Disposition: inpatient PCU telemetry Time Spent With Patient Time: Total time spent is greater than 50% in coordination of care (as documented) at patient's floor/unit and/or counseling patient: Total time spent with greater than 50% in coordination of care (as documented) at patient's floor/unit and/or counseling patient:: Greater than 35 minutes QUALITY VTE Deep Vein Thrombosis/Pulmonary Embolism Present on Admission: No
[2021-09-17] MEDS: HEPARIN 5,000 UNIT/ML VIAL SQ SCH ×2 (09:46→20:23)
[2021-09-17] MEDS: FLUoxetine HCL 20 MG CAPSULE PO SCH (09:47)
[2021-09-17] MEDS: guaiFENesin 600 MG TAB.SR.12H PO SCH ×2 (09:47→20:23)
[2021-09-17] MEDS: PROPRANOLOL 10 MG TABLET PO SCH (09:47)
[2021-09-17] MEDS: MULTIVIT,THER IRON,CA,FA & MIN 1 TABLET PO SCH (09:47)
[2021-09-17] MEDS: DOCUSATE SODIUM 100 MG CAPSULE PO SCH ×2 (09:47→20:23)
[2021-09-17] MEDS: GABAPENTIN 100 MG CAPSULE PO SCH ×2 (09:48→20:23)
[2021-09-17] MEDS: LORATADINE 10 MG TABLET PO SCH (09:48)
[2021-09-17] MEDS: cefTRIAXone 2 GM in DEXTROSE 5% IN WATER 50 ML IV SCH (10:02)
[2021-09-17] MEDS: ETODOLAC 400 MG TABLET PO SCH ×2 (12:57→20:24)
[2021-09-17] MEDS: BUTALB/ACETAMINOPHEN/CAFFEINE 1 TABLET PO PRN ×2 (13:21→19:21)
[2021-09-17] MEDS: DULoxetine 30 MG CAPSULE PO SCH (20:22)
[2021-09-17] MEDS: ATORVASTATIN 40 MG TABLET PO SCH (20:22)
[2021-09-17] MEDS: ACETAMINOPHEN W/CODEINE #3 1 TABLET PO PRN (20:23)
[2021-09-17] MEDS: INSULIN GLARGINE, HUMAN 1 UNIT/0.01 ML SQ SCH (20:24)
[2021-09-18] MEDS: 0.9 % SODIUM CHLORIDE 10 ML SYRINGE IV SCH ×4 (00:04→21:31)
[2021-09-18] MEDS: INSULIN LISPRO 1 UNIT/0.01 ML UNIT SQ SCH ×6 (00:10→21:32)
[2021-09-18] MEDS: ONDANSETRON 4 MG/2 ML VIAL IV PRN ×3 (01:07→12:50)
[2021-09-18] MEDS: ACETAMINOPHEN W/CODEINE #3 1 TABLET PO PRN ×5 (01:21→23:54)
[2021-09-18] MEDS: 0.9 % SODIUM CHLORIDE 1,000 ML IV SCH ×3 (02:22→14:37)
[2021-09-18] MEDS: ACETAMINOPHEN 325 MG TABLET PO PRN (07:06)
[2021-09-18] MEDS: HEPARIN 5,000 UNIT/ML VIAL SQ SCH ×2 (07:36→21:31)
[2021-09-18] MEDS: MULTIVIT,THER IRON,CA,FA & MIN 1 TABLET PO SCH (07:36)
[2021-09-18] MEDS: guaiFENesin 600 MG TAB.SR.12H PO SCH ×2 (07:36→21:31)
[2021-09-18] MEDS: FLUoxetine HCL 20 MG CAPSULE PO SCH (07:37)
[2021-09-18] MEDS: GABAPENTIN 100 MG CAPSULE PO SCH ×2 (07:37→21:31)
[2021-09-18] MEDS: DOCUSATE SODIUM 100 MG CAPSULE PO SCH ×2 (07:38→21:30)
[2021-09-18] MEDS: ETODOLAC 400 MG TABLET PO SCH ×2 (07:55→21:31)
[2021-09-18] MEDS: KETOROLAC 30 MG/ML VIAL IV PRN (07:58)
[2021-09-18] MEDS: PROPRANOLOL 10 MG TABLET PO SCH (07:59)
[2021-09-18] MEDS: LORATADINE 10 MG TABLET PO SCH (07:59)
[2021-09-18] MEDS: cefTRIAXone 2 GM in DEXTROSE 5% IN WATER 50 ML IV SCH (09:00)
[2021-09-18 10:38] LABS: Basophils # (Auto) 0.04 K/mcL (0.00-0.30); Basophils % (Auto) 0.3 % (0.0-2.0); Eosinophils # (Auto) 0.15 K/mcL (0.00-0.70); Eosinophils % (Auto) 1.2 % (0.0-7.0); Hematocrit 33.3 % (34.1-44.9); Hemoglobin 10.8 g/dL (11.2-15.7); Lymphocytes # (Auto) 0.79 K/mcL (1.50-4.80); Lymphocytes % (Auto) 6.3 % (15.5-49.0); Mean Cell Volume 94.1 fL (80.0-100.0); Mean Corpuscular HGB Conc 32.4 g/dL (31.0-36.0); Mean Platelet Volume 11.2 fL (7.4-10.4); Monocytes % (Auto) 8.8 % (1.0-12.0); Neutrophils % (Auto) 83.4 % (38.0-78.0); Platelet Count 210 K/mcL (140-440); RBC 3.54 M/mcL (3.59-5.38); Red Cell Distribution Width 13.6 % (11.5-14.5); WBC 12.5 K/mcL (4.5-11.0)
[2021-09-18 10:57] LABS: ALT/SGPT 16 U/L (<40); AST/SGOT 20 U/L (<32); Albumin 2.5 gm/dL (3.2-5.2); Albumin/Globulin Ratio 0.8 (1.0-2.3); Alkaline Phosphatase 119 U/L (39-117); Bilirubin,Direct < 0.2 mg/dL (0-0.3); Bilirubin,Total 0.2 mg/dL (0.1-1.0); Blood Urea Nitrogen 16 mg/dL (6-20); Calcium 7.9 mg/dL (8.6-10.4); Carbon Dioxide 12 mmol/L (22-30); Chloride 106 mmol/L (96-108); Globulin 3.3 gm/dL (2.2-3.7); Glomerular Filtration Rate 79; Glucose 169 mg/dL (70-105); Lactate Dehydrogenase 146 U/L (135-225); Phosphorous 1.8 mg/dL (2.5-4.5); Triglycerides 592 mg/dL (<150); Uric Acid 1.6 mg/dL (2.5-8.0)
[2021-09-18] MEDS ORDERED: POTASSIUM PHOSPHATE 40 MEQ in DEXTROSE 5% IN WATER 500 ML IV ONE (12:30)
[2021-09-18] MEDS: BUTALB/ACETAMINOPHEN/CAFFEINE 1 TABLET PO PRN (12:30)
[2021-09-18] MEDS ORDERED: SUMAtriptan SUCCINATE 6 MG/0.5 ML VIAL SQ ONE (13:06)
--- NOTE | 2021-09-18 17:17 | Internal Med Progress Note ---
SUBJECTIVE Subjective Patient information: Note initiated : 09/18/21 at 5:16 pm Service Date, if different from initiated Date: [] Patient: Conchita Dyer 41 y/o F admitted on 09/16/21 for headache, sob, flank pain. Chief Complaint: [] Interval history: Ms. Dyer is a 41 year old F h/o T2DM, depression, mixed dyslipidemia, kidney stones, p/w 2 days history of left flank pain. She denies any prior history of UTI; history of kidney stone with last flare years ago. For the last 2 days she has acute onset left flank pain, 10/10, sharp and pressure like, constant, radiates to LUQ and LLQ abdomen, exacerbating factor with any movement, a lleviating factor rest. Denies any nausea, vomiting, fever, chills, sweating, dysuria, change in urinary frequency or urgency. Also c/o general body weakness. Vital signs significant for tachycardia with HR up to 100s bpm, rest of the vital signs within normal limits. Labs significant for leuckocytosis with WBC 21.0 Lactic acid 2.7. Blood glucose 585, initial anion gap 12, bicarb 14. Serum Cr level 1.4 with baseline 0.8. UA suggestive of presence of UA. CT abdomen pelvis showing mild edema in the left kidney with very slight pyelocaliectasis. No evidence of obstructing stone. Presumably patient had a left ureteral stone which has now passed. 3L NS bolus, 1gm Rocephin, and 20 unit regular insulin given in the ED. 09/17: Afebrile overnight. WBC 21.0-->13.5. Blood and urine cultures no growth to date. c/o headache, diffused, 4/10, sharp. Denies left flank pain. Denies fever or chills or sweating. Denies nausea or vomiting. c/o poor appetite. c/o general body weakness. 09/18: T-max 99.3 this afternoon. Blood cultures without growth, approaching 48 hours. Urine culture with pansensitive E. coli. Still complaining of headache. Usually controlled with propranolol and Fioricet. 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 Left flank pain is improved. Still has right back pain which was present prior to her illness (to see back surgeon on Monday). Constitutional Vitals: Vital Signs Temp Pulse Resp BP Pulse Ox 99.4 F H 92 H 27 H 158/103 94 09/18/21 15:55 09/18/21 04:00 09/18/21 15:55 09/18/21 15:55 09/18/21 15:55 Period Temp Pulse Resp BP Sys/Cain Pulse Ox Last 24 Hr 97.8 F-99.9 F 82-93 19-27 132-158/82-103 92-96 Intake and Output 09/18/21 09/18/21 09/18/21 05:59 13:59 21:59 Intake Total 960 1650 1509.0909 Output Total 150 1500 900 Balance [phone] GENERAL: In bed, looks mildly uncomfortable RESPIRATORY: Clear lung joseph, unlabored CARDIOVASCULAR: Regular rate and rhythm BACK: Minimal left CVA tenderness ABDOMEN: Soft, nontender EXTREMITIES: Warm, no edema NEURO: Alert, oriented x3, ambulatory Intake & Output: Intake & Output 09/18/21 09/18/21 09/18/21 05:59 13:59 21:59 Intake Total 960 1650 1509.0909 Output Total 150 1500 900 Balance 810 864 511.5354 Intake: IV 960 1050 1509.0909 Sodium Chloride 0.9% 1,000 ml @ 960 1000 1000 150 mls/hr IV .[id number] [facility] Rx#: [id number] Potassium Phosphate 40 Meq In 509.0909 Dextrose 5% in Water 500 ml @ 127.273 mls/hr IV ONCE ONE Rx#: [id number] Rocephin 2 gm In Dextrose 5% in 50 Water 50 ml @ 100 mls/hr IV Q24H [facility] Rx#:[id number] Oral 600 Output: Void Amount 150 1500 900 Other: Meal Lunch Percent of Meal Consumed 75% Feeding Ability Independent Urine Appearance Clear Clear Clear Urine Color Dark Yellow Bright Yellow Bright Yellow Urine Odor Normal Normal Stool Size Smear Stool Color Brown Stool Consistency Soft # Bowel Movements 1 # of times incontinent of 0 Bowels OBJ DATA Labs CBC & Chem 7: 09/18/21 10:04 09/18/21 10:04 Labs: Abnormal Lab Results 09/18/21 09/18/21 09/17/21 10:04 10:04 05:10 WBC 12.5 H RBC 3.54 L Hgb 10.8 L Hct 33.3 L MPV 11.2 H Neut % (Auto) 83.4 H Lymph % (Auto) 6.3 L Lymph # (Auto) 0.79 L [place] # (Auto) 1.10 H Absolute Neutrophils 10.42 H VBG Lactic Acid POC Sodium Sodium 131 L 131 L Potassium 3.2 L Carbon Dioxide 12 L 14 L POC Total CO2 POC BUN BUN 22 H POC Creatinine Glucose 169 H 168 H POC Glucose Hemoglobin A1c Uric Acid 1.6 L Calcium 7.9 L 8.4 L POC WB Ioniz Calcium Phosphorus 1.8 L 1.7 L Alkaline Phosphatase 119 H Total Protein 5.8 L Albumin 2.5 L 2.9 L Albumin/Globulin Ratio 0.8 L 0.8 L Triglycerides 592 H Beta-Hydroxybutyrate Procalcitonin Urine Appearance Urine Protein Urine Glucose (UA) Urine Ketones Urine Occult Blood Urine Urobilinogen Ur Leukocyte Esterase Urine RBC Urine WBC Ur Squamous Epith Cells Urine Bacteria 09/17/21 09/16/21 09/16/21 05:10 14:52 13:00 WBC 13.5 H RBC Hgb Hct MPV 12.3 H Neut % (Auto) 82.4 H Lymph % (Auto) 6.2 L Lymph # (Auto) 0.83 L [place] # (Auto) 1.27 H Absolute Neutrophils 11.12 H VBG Lactic Acid POC Sodium Sodium Potassium Carbon Dioxide POC Total CO2 14 L POC BUN 30 H BUN POC Creatinine 1.3 H Glucose POC Glucose 497 H* Hemoglobin A1c Uric Acid Calcium POC WB Ioniz Calcium 1.04 L Phosphorus Alkaline Phosphatase Total Protein Albumin Albumin/Globulin Ratio Triglycerides Beta-Hydroxybutyrate Procalcitonin Urine Appearance Cloudy A Urine Protein 100 A Urine Glucose (UA) >=500 A Urine Ketones 5 A Urine Occult Blood >=1.0 A Urine Urobilinogen 2.0 A Ur Leukocyte Esterase 75 A Urine RBC 19 H Urine WBC 69 H Ur Squamous Epith Cells 12 H Urine Bacteria Few A 09/16/21 09/16/21 09/16/21 10:36 08:14 08:14 WBC RBC Hgb Hct MPV Neut % (Auto) Lymph % (Auto) Lymph # (Auto) [place] # (Auto) Absolute Neutrophils VBG Lactic Acid POC Sodium Sodium Potassium Carbon Dioxide POC Total CO2 14 L POC BUN 31 H BUN POC Creatinine 1.4 H Glucose POC Glucose 585 H* Hemoglobin A1c 11.2 H Uric Acid Calcium POC WB Ioniz Calcium Phosphorus Alkaline Phosphatase Total Protein Albumin Albumin/Globulin Ratio Triglycerides Beta-Hydroxybutyrate Procalcitonin 5.78 H Urine Appearance Urine Protein Urine Glucose (UA) Urine Ketones Urine Occult Blood Urine Urobilinogen Ur Leukocyte Esterase Urine RBC Urine WBC Ur Squamous Epith Cells Urine Bacteria 09/16/21 09/16/21 09/16/21 08:14 08:14 08:14 WBC RBC Hgb Hct MPV Neut % (Auto) Lymph % (Auto) Lymph # (Auto) [place] # (Auto) Absolute Neutrophils VBG Lactic Acid 2.6 H POC Sodium 131 L Sodium Potassium Carbon Dioxide POC Total CO2 15 L POC BUN 32 H BUN POC Creatinine 1.7 H Glucose POC Glucose 592 H* Hemoglobin A1c Uric Acid Calcium POC WB Ioniz Calcium Phosphorus Alkaline Phosphatase Total Protein Albumin Albumin/Globulin Ratio Triglycerides Beta-Hydroxybutyrate 1.12 H Procalcitonin Urine Appearance Urine Protein Urine Glucose (UA) Urine Ketones Urine Occult Blood Urine Urobilinogen Ur Leukocyte Esterase Urine RBC Urine WBC Ur Squamous Epith Cells Urine Bacteria 09/16/21 08:14 WBC 21.0 H RBC Hgb Hct MPV 12.1 H Neut % (Auto) 85.3 H Lymph % (Auto) 3.6 L Lymph # (Auto) 0.76 L [place] # (Auto) 2.18 H Absolute Neutrophils 17.85 H VBG Lactic Acid POC Sodium Sodium Potassium Carbon Dioxide POC Total CO2 POC BUN BUN POC Creatinine Glucose POC Glucose Hemoglobin A1c Uric Acid Calcium POC WB Ioniz Calcium Phosphorus Alkaline Phosphatase Total Protein Albumin Albumin/Globulin Ratio Triglycerides Beta-Hydroxybutyrate Procalcitonin Urine Appearance Urine Protein Urine Glucose (UA) Urine Ketones Urine Occult Blood Urine Urobilinogen Ur Leukocyte Esterase Urine RBC Urine WBC Ur Squamous Epith Cells Urine Bacteria Meds: Medications Acetaminophen (Acetaminophen 325 Mg Tablet) 650 mg PO Q6HP PRN; Protocol PRN Reason: Per Pain Protocol/Fever > 101 Last Admin: 09/18/21 07:06 Dose: 650 mg Documented by: Acetaminophen/Butalbital/Caffeine (Butalb/Acetaminophen/Caffeine 1 Tablet) 1 tab PO Q6HP PRN PRN Reason: Headache Last Admin: 09/18/21 12:30 Dose: 1 tab Documented by: Acetaminophen/Codeine Phosphate (Acetaminophen W/Codeine #3 1 Tablet) 1 tab PO Q4HP PRN; Protocol PRN Reason: Per Pain Protocol Last Admin: 09/18/21 12:30 Dose: 1 tab Documented by: Albuterol/Ipratropium (Ipratropium/Albuterol 3 Ml Ampul.Neb) 3 ml NEB Q4HRT PRN PRN Reason: Wheezing Atorvastatin Calcium (Atorvastatin 40 Mg Tablet) 40 mg PO HS [facility] Last Admin: 09/17/21 20:22 Dose: 40 mg Documented by: Dextrose (Dextrose 50% 50 Ml Vial) 0 ml IV UD PRN PRN Reason: Hypoglycemia Diagnostic Test (Pha) (Accu-Chek 1 Each Strip) 1 each FS Q4 [facility] Last Admin: 09/18/21 16:10 Dose: 1 each Documented by: Docusate Sodium (Docusate Sodium 100 Mg Capsule) 100 mg PO BID [facility] Last Admin: 09/18/21 07:38 Dose: Not Given Documented by: Duloxetine HCl (Duloxetine 30 Mg Capsule) 60 mg PO [facility] Last Admin: 09/17/21 20:22 Dose: 60 mg Documented by: Etodolac (Etodolac 400 Mg Tablet) 400 mg PO BID [facility] Last Admin: 09/18/21 07:55 Dose: Not Given Documented by: Fluoxetine HCl (Fluoxetine Hcl 20 Mg Capsule) 80 mg PO DAILY [facility] Last Admin: 09/18/21 07:37 Dose: 80 mg Documented by: Gabapentin (Gabapentin 100 Mg Capsule) 100 mg PO BID [facility] Last Admin: 09/18/21 07:37 Dose: 100 mg Documented by: Glucose (Dextrose 31 Gm Oral.Susp) 15 gm PO PRN PRN PRN Reason: Hypoglycemia Guaifenesin (Guaifenesin 600 Mg Tab.Sr.12h) 600 mg PO BID [facility] Last Admin: 09/18/21 07:36 Dose: 600 mg Documented by: Heparin Sodium (Porcine) (Heparin 5,000 Unit/Ml Vial) 5,000 unit SQ Q12 [facility] Last Admin: 09/18/21 07:36 Dose: 5,000 unit Documented by: Ceftriaxone Sodium 2 gm/ (Dextrose) 50 mls @ 100 mls/hr IV Q24H [facility]; Protocol Last Infusion: 09/18/21 09:30 Dose: Infused Documented by: Insulin Glargine (Insulin Glargine, Human 1 Unit/0.01 Ml) 30 unit SQ HS [facility] Last Admin: 09/17/21 20:24 Dose: 30 unit Documented by: Insulin Human Lispro (Insulin Lispro 1 Unit/0.01 Ml Unit) 0 unit SQ Q4H [facility]; Protocol Last Admin: 09/18/21 16:10 Dose: 6 unit Documented by: Iron Carb/Multivit/Game Show Host/Folic Acid (Multivit,Ther Iron,Ca,Fa & Min 1 Tablet) 1 tab PO DAILY [facility] Last Admin: 09/18/21 07:36 Dose: 1 tab Documented by: Lactulose (Lactulose 20 Gm/30 Ml Oral.Hillary) 10 gm PO DAILYP PRN PRN Reason: Constipation Loratadine (Loratadine 10 Mg Tablet) 10 mg PO DAILY [facility] Last Admin: 09/18/21 07:59 Dose: 10 mg Documented by: Morphine Sulfate (Morphine 2 Mg/Ml Vial) 2 mg IV Q4HP PRN; Protocol PRN Reason: Per Pain Protocol Last Admin: 09/17/21 01:08 Dose: 2 mg Documented by: Naloxone HCl (Naloxone Hcl 0.4 Mg/Ml Vial) 0.4 mg IV Q10M PRN PRN Reason: Opiate Reversal Last Admin: 09/16/21 16:19 Dose: 0.4 mg Documented by: Ondansetron HCl (Ondansetron 4 Mg/2 Ml Vial) 4 mg IV Q4HP PRN; Protocol PRN Reason: Nausea And Vomiting Last Admin: 09/18/21 12:50 Dose: 4 mg Documented by: Potassium Chloride (Potassium Chloride 20 Meq Tablet) 40 meq PO DAILYP PRN PRN Reason: hypokalemia Last Admin: 09/18/21 12:30 Dose: 40 meq Documented by: Propranolol HCl (Propranolol 10 Mg Tablet) 40 mg PO DAILY [facility] Last Admin: 09/18/21 07:59 Dose: 40 mg Documented by: Senna (Sennosides 1 Tablet) 2 tab PO HSP PRN PRN Reason: Constipation Sodium Chloride (0.9 % Sodium Chloride 10 Ml Syringe) 10 ml IV Q8 [facility] Last Admin: 09/18/21 14:48 Dose: Not Given Documented by: A/P Narrative A/P Narrative: 1. Left pyelonephritis with associated sepsis, presumably secondary to left ureteral stone which has now passed: Blood culture, no growth to date Urine culture, with pansensitive E. coli s/p 3L NS bolus given in the ED, and subsequent NS@150cc/hr Ceftriaxone Tylenol PRN fever Toradol IV PRN pain Morphine IV PRN pain 2. Uncontrolled T2DM, no DKA/HHS: s/p 3L NS bolus given in the ED, to be followed by NS@150cc/hr s/p 20 unit regular insulin given in the ED Hold oral hypoglycemics Insulin glargine 30 unit HS High dose correctional scale insulin AC HS 3. Stage 1 acute kidney injury: RESOLVED Secondary to sepsis Avoid nephrotoxic agents s/p 3L NS bolus given in the ED, to be followed by NS@150cc/hr Saline locked 09/18 4. Hyperlipidemia: Continue statin therapy 5. Depression: Fluoxetine 6. Cigarette smoking: Drop Count Associate patient on quitting cigarette smoking and provide Nicotine replacement therapy if agreeable 7. Headache: History of migraine Plan: * Continue ceftriaxone * Will convert to fluoroquinolone at discharge * Trial of sumatriptan for headache * Continue as needed Fioricet and Tylenol #3 * Continue with diabetic diet, bedtime glargine, sliding scale insulin * Replete potassium, replete phosphorus * Follow-up blood cultures, if no growth at 48 hours then likely DC tomorrow DVT ppx: heparin Code status: DNI DNR Disposition: Med/surg status, discharge in 24 hours if stable Time Spent With Patient Time: Total time spent is greater than 50% in coordination of care (as documented) at patient's floor/unit and/or counseling patient: Total time spent with greater than 50% in coordination of care (as documented) at patient's floor/unit and/or counseling patient:: Greater than 35 minutes QUALITY VTE Deep Vein Thrombosis/Pulmonary Embolism Present on Admission: No
[2021-09-18] MEDS: ATORVASTATIN 40 MG TABLET PO SCH (21:30)
[2021-09-18] MEDS: INSULIN GLARGINE, HUMAN 1 UNIT/0.01 ML SQ SCH (21:30)
[2021-09-18] MEDS: DULoxetine 30 MG CAPSULE PO SCH (21:30)
[2021-09-19] MEDS: ACETAMINOPHEN W/CODEINE #3 1 TABLET PO PRN (04:55)
[2021-09-19] MEDS: 0.9 % SODIUM CHLORIDE 10 ML SYRINGE IV SCH (05:07)
[2021-09-19 07:02] LABS: Albumin 2.7 gm/dL (3.2-5.2); Blood Urea Nitrogen 11 mg/dL (6-20); Calcium 8.5 mg/dL (8.6-10.4); Carbon Dioxide 13 mmol/L (22-30); Chloride 108 mmol/L (96-108); Glomerular Filtration Rate 91; Glucose 163 mg/dL (70-105); Phosphorous 2.2 mg/dL (2.5-4.5)
[2021-09-19 07:18] LABS: Basophils # (Auto) 0.05 K/mcL (0.00-0.30); Basophils % (Auto) 0.4 % (0.0-2.0); Eosinophils # (Auto) 0.13 K/mcL (0.00-0.70); Hematocrit 34.5 % (34.1-44.9); Hemoglobin 11.9 g/dL (11.2-15.7); Lymphocytes # (Auto) 1.18 K/mcL (1.50-4.80); Lymphocytes % (Auto) 9.3 % (15.5-49.0); Mean Cell Volume 89.4 fL (80.0-100.0); Mean Corpuscular HGB Conc 34.5 g/dL (31.0-36.0); Monocytes # (Auto) 1.25 K/mcL (0.10-0.90); Monocytes % (Auto) 9.8 % (1.0-12.0); Neutrophils % (Auto) 79.5 % (38.0-78.0); Platelet Count 263 K/mcL (140-440); RBC 3.86 M/mcL (3.59-5.38); Red Cell Distribution Width 13.6 % (11.5-14.5); WBC 12.8 K/mcL (4.5-11.0)
[2021-09-19] MEDS: INSULIN LISPRO 1 UNIT/0.01 ML UNIT SQ SCH (08:05)
[2021-09-19] MEDS: FLUoxetine HCL 20 MG CAPSULE PO SCH (08:06)
[2021-09-19] MEDS: guaiFENesin 600 MG TAB.SR.12H PO SCH (08:06)
[2021-09-19] MEDS: PROPRANOLOL 10 MG TABLET PO SCH (08:06)
[2021-09-19] MEDS: MULTIVIT,THER IRON,CA,FA & MIN 1 TABLET PO SCH (08:06)
[2021-09-19] MEDS: LORATADINE 10 MG TABLET PO SCH (08:07)
[2021-09-19] MEDS: GABAPENTIN 100 MG CAPSULE PO SCH (08:07)
[2021-09-19] MEDS: HEPARIN 5,000 UNIT/ML VIAL SQ SCH (08:08)
[2021-09-19] MEDS ORDERED: PHOSPHORUS 250 MG TABLET PO SCH (09:00)
[2021-09-19] MEDS: ETODOLAC 400 MG TABLET PO SCH (09:06)
[2021-09-19] MEDS: DOCUSATE SODIUM 100 MG CAPSULE PO SCH (09:06)
--- NOTE | 2021-09-19 09:30 | Discharge Summary ---
Discharge Provider Provider Patient information: Note initiated : 09/19/21 at 9:28 am Service Date, if different from initiated Date: [] Patient: Conchita Dyer 41 y/o F admitted on 09/16/21 for headache, sob, flank pain. Date of admission: 09/16/21 15:49 Discharge date: 09/19/21 Primary care physician: Carlie Berman Admitting clinician: Osmar Copeland Consults: 09/16/21 Consult to Physician [CONS] Stat Comment: Consulting Provider: Osmar Copeland Reason For Exam: Physician to Consult Discharging clinician: Bailey Oliver Discharge Meds Discharge Medications Home Medications acetazolamide 500 mg capsule,extended release 1,000 mg PO BID 01/14/16 [History Confirmed 09/16/21 Last Taken 09/16/21 05:30] propranolol 10 mg tablet 40 mg PO DAILY 01/14/16 [History Confirmed 09/16/21 Last Taken 09/16/21 05:30] fluoxetine 20 mg capsule 20 mg PO BID cap 12/07/18 [History Confirmed 09/16/21 Last Taken 09/16/21 05:30] gabapentin 100 mg capsule 600 mg PO BID 12/07/18 [History Confirmed 09/16/21 Last Taken 09/16/21 05:30] etodolac 200 mg capsule 500 mg PO HS 08/11/21 [History Confirmed 09/16/21 Last Taken 09/15/21 20:00] tizanidine 2 mg capsule 4 - 8 mg PO 3-4XD 08/11/21 [History Confirmed 09/16/21 Last Taken 09/16/21 05:30] acetaminophen 300 mg-codeine 30 mg tablet 1 tab PO TID PRN 09/07/21 [History Confirmed 09/16/21 Last Taken 09/16/21 05:30] duloxetine 60 mg capsule,delayed release 60 mg PO HS 09/07/21 [History Confirmed 09/16/21 Last Taken 09/15/21 20:00] guaifenesin 600 mg tablet, extended release 12 hr 600 mg PO BID 09/07/21 [History Confirmed 09/16/21 Last Taken 09/16/21 05:30] rosuvastatin 10 mg tablet 20 mg PO QDAY 09/07/21 [History Confirmed 09/16/21 Last Taken 09/16/21 05:30] semaglutide 1 mg/dose (2 mg/1.5 mL) subcutaneous pen injector (Ozempic) 1 mg S UBCUT QWEEK 09/07/21 [History Confirmed 09/16/21 Last Taken 09/10/21 20:00] multivit,Ca,iron,bkf-[id number]-cdolfrx-letp-FRJU 3 mg-133 mcg capsule (Body, Hair, Skin and Nails) 1 cap PO DAILY 09/16/21 [History Confirmed 09/16/21 Last Taken 09/16/21 05:30] amoxicillin 875 mg tablet 875 mg PO BID #12 tab 09/19/21 [Rx Last Taken Unknown] COURSE Hospital Course Hospital course: Ms. Dyer is a 41 year old F h/o T2DM, depression, mixed dyslipidemia, kidney stones, p/w 2 days history of left flank pain. She denies any prior history of UTI; history of kidney stone with last flare years ago. For the last 2 days she has acute onset left flank pain, 10/10, sharp and pressure like, constant, radiates to LUQ and LLQ abdomen, exacerbating factor with any movement, alleviating factor rest. Denies any nausea, vomiting, fever, chills, sweating, dysuria, change in urinary frequency or urgency. Also c/o general body weakness. Vital signs significant for tachycardia with HR up to 100s bpm, rest of the vital signs within normal limits. Labs significant for leuckocytosis with WBC 21.0 Lactic acid 2.7. Blood glucose 585, initial anion gap 12, bicarb 14. Serum Cr level 1.4 with baseline 0.8. UA suggestive of presence of UA. CT abdomen pelvis showing mild edema in the left kidney with very slight pyelocaliectasis. No evidence of obstructing stone. Presumably patient had a left ureteral stone which has now passed. 3L NS bolus, 1gm Rocephin, and 20 unit regular insulin given in the ED. 09/17: Afebrile overnight. WBC 21.0-->13.5. Blood and urine cultures no growth to date. c/o headache, diffused, 4/10, sharp. Denies left flank pain. Denies fever or chills or sweating. Denies nausea or vomiting. c/o poor appetite. c/o general body weakness. 09/18: T-max 99.3 this afternoon. Blood cultures without growth, approaching 48 hours. Urine culture with pansensitive E. coli. Still complaining of headache. Usually controlled with propranolol and Fioricet. 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 Left flank pain is improved. Still has right back pain which was present prior to her illness (to see back surgeon on Monday). 09/19: Headache improved after Imitrex yesterday. Minimal to no left flank pain. Blood cultures are without growth. Urine culture with pansensitive E. coli. Discharge diagnosis: Left pyelonephritis secondary to Escherichia coli Time Spent with Patient Time attestation: Total time spent providing and/or coordinating discharge services: 33 min EXAM Constitutional Vitals: Temp Pulse Resp BP Pulse Ox 98.8 F 86 16 133/92 93 09/19/21 07:10 09/19/21 04:00 09/19/21 07:10 09/19/21 07:10 09/19/21 07:10 Exam: GENERAL: Sitting up in bed no acute distress RESPIRATORY: Clear lungs BACK: No left CVA tenderness CARDIOVASCULAR: Regular rate and rhythm ABDOMEN: Nondistended NEURO: Alert, oriented x3, ambulatory Discharge Data Data Completed and Pending Labs on day of discharge: Labs from last 24 hours 09/19/21 09/19/21 09/18/21 05:58 05:58 10:04 WBC 12.8 H RBC 3.86 Hgb 11.9 Hct 34.5 MCV 89.4 MCH 30.8 MCHC 34.5 RDW 13.6 Plt Count 263 MPV 11.0 H Neut % (Auto) 79.5 H Lymph % (Auto) 9.3 L [place] % (Auto) 9.8 Eos % (Auto) 1.0 Baso % (Auto) 0.4 Lymph # (Auto) 1.18 L [place] # (Auto) 1.25 H Eos # (Auto) 0.13 Baso # (Auto) 0.05 Absolute Neutrophils 10.14 H Sodium 135 131 L Potassium 3.3 3.2 L Chloride 108 106 Carbon Dioxide 13 L 12 L Anion Gap 14.0 13.0 BUN 11 16 Creatinine 0.8 0.9 GFR Calculation 91 79 Glucose 163 H 169 H Uric Acid 1.6 L Calcium 8.5 L 7.9 L Phosphorus 2.2 L 1.8 L Magnesium 2.0 Total Bilirubin 0.2 Direct Bilirubin < 0.2 GGT 35 AST 20 ALT 16 Alkaline Phosphatase 119 H Lactate Dehydrogenase 146 Total Protein 5.8 L Albumin 2.7 L 2.5 L Globulin 3.3 Albumin/Globulin Ratio 0.8 L Triglycerides 592 H 09/18/21 10:04 WBC 12.5 H RBC 3.54 L Hgb 10.8 L Hct 33.3 L MCV 94.1 MCH 30.5 MCHC 32.4 RDW 13.6 Plt Count 210 MPV 11.2 H Neut % (Auto) 83.4 H Lymph % (Auto) 6.3 L [place] % (Auto) 8.8 Eos % (Auto) 1.2 Baso % (Auto) 0.3 Lymph # (Auto) 0.79 L [place] # (Auto) 1.10 H Eos # (Auto) 0.15 Baso # (Auto) 0.04 Absolute Neutrophils 10.42 H Sodium Potassium Chloride Carbon Dioxide Anion Gap BUN Creatinine GFR Calculation Glucose Uric Acid Calcium Phosphorus Magnesium Total Bilirubin Direct Bilirubin GGT AST ALT Alkaline Phosphatase Lactate Dehydrogenase Total Protein Albumin Globulin Albumin/Globulin Ratio Triglycerides Preliminary micro results at discharge 09/16/21 16:11 Blood Culture - Preliminary Blood 09/16/21 16:01 Blood Culture - Preliminary Blood Impressions Impressions: CT abdomen and pelvis IMPRESSION: -Mild edema in the left kidney with very slight pyelocaliectasis. No evidence of obstructing stone. Presumably, patient had a left ureteral stone which has now passed -Multiple (greater than 20) nonobstructing stones in the calyces of both kidneys ranging between one and [address] Head IMPRESSION: Normal head CT without contrast. Discharge Plan Patient/Caregiver Discharge Instructions Activity: increase activity as tolerated Diet: Consistent Carbohydrate Prescriptions: New amoxicillin 875 mg tablet 875 mg PO BID Qty: 12 0RF Rx Instructions: Begin taking AM 09/20/2021 Continued rosuvastatin 10 mg tablet 20 mg PO QDAY 0RF duloxetine 60 mg capsule,delayed release(DR/EC) 60 mg PO HS 0RF guaifenesin 600 mg tablet extended release 12hr 600 mg PO BID 0RF acetaminophen-codeine 300-30 mg tablet 1 tab PO TID PRN (Reason: Pain) 0RF Ozempic 1 mg/dose (2 mg/1.5 mL) pen injector 1 mg subcut QWEEK 0RF Rx Instructions: Pt took 0.25mg last monday 09/10, and is to increase by 0.25mg every week. Takes once a week on monday nights tizanidine 2 mg capsule 4 - 8 mg PO 3-4XD 0RF etodolac 200 mg capsule 500 mg PO HS 0RF gabapentin 100 mg capsule 600 mg PO BID 0RF acetazolamide 500 MG capsule, extended release 1,000 mg PO BID 0RF propranolol 10 MG tablet 40 mg PO DAILY 0RF fluoxetine 20 mg capsule 20 mg PO BID 0RF Body, Hair, Skin and Nails 3-133 mg-mcg Capsule 1 cap PO DAILY 0RF Follow Up Plan Follow up with: Carlie Berman ARNP [Primary Care Provider] - 09/27/21 (in 7-10 days) Patient Disposition: Home, Self-Care Prognosis: Good Rehab Potential: Good Overall status at discharge: patient is progressing back to baseline Discharge Orders: Discharge Order (Routine); Ordered 09/19/21 Ordered By: Bailey HEBERT VTE Deep Vein Thrombosis/Pulmonary Embolism Present on Admission: No
[2021-09-19] MEDS: cefTRIAXone 2 GM in DEXTROSE 5% IN WATER 50 ML IV SCH (09:59)
--- NOTE | 2021-09-20 14:37 | EKG ---
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 Measurements Intervals [place] Rate: 117 P: 37 RI: 162 QRS: 37 QRSD: 111 T: -21 QT: 300 QTc: 419 Interpretive Statements Sinus tachycardia Inferior infarct, age indeterminate Anterior ST elevation, possibly acute Electronically Signed On 09-20-2021 14:37:31 PST by Al Hernandez M.D. [id number]
--- NOTE | 2021-09-21 18:01 | EKG ---
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
== END 2021-09-19 11:20 | disposition home or self-care (01) | DRG 872 ==
LOC: ED 07:35 → ICU 15:49 → MEDSUR 09-18 17:41
PROVIDERS: ADMIT Internal Medicine; ATTEND Internal Medicine

== ENCOUNTER 2021-09-20 09:29 | Inpatient (IN) ==
--- NOTE | 2021-09-20 10:00 | Emergency Department Note ---
HPI General Chief complaint: Nausea/Vomiting/Diarrhea Stated complaint: nausea and vomiting Time Seen by Provider: 09/20/21 09:59 Source: patient Mode of arrival: ambulatory Limitations: no limitations History of Present Illness HPI Narrative: 41-year-old female with past medical history of diabetes presenting with nausea and vomiting. She was just discharged from the hospital yesterday after an admission for pyelonephritis and kidney stone that passed. She was discharged on antibiotics but has been unable to take them because of nausea and vomiting. Unable to tell me any time she has vomited but states it has been persistent throughout the morning. No hematemesis. Denies dysuria or hematuria. No abdo vijay pain. Related Data Home Medications Medication Instructions Recorded Confirmed acetazolamide 500 mg 1,000 mg PO BID 01/14/16 09/20/21 capsule,extended release propranolol 10 mg tablet 40 mg PO DAILY 01/14/16 09/20/21 fluoxetine 20 mg capsule 20 mg PO BID cap 12/07/18 09/20/21 gabapentin 100 mg capsule 600 mg PO BID 12/07/18 09/20/21 etodolac 200 mg capsule 500 mg PO HS 08/11/21 09/20/21 tizanidine 2 mg capsule 4 - 8 mg PO 3-4XD 08/11/21 09/20/21 acetaminophen 300 mg-codeine 30 mg 1 tab PO TID PRN 09/07/21 09/20/21 tablet duloxetine 60 mg capsule,delayed 60 mg PO HS 09/07/21 09/20/21 release guaifenesin 600 mg tablet, 600 mg PO BID 09/07/21 09/20/21 extended release 12 hr rosuvastatin 10 mg tablet 20 mg PO QDAY 09/07/21 09/20/21 semaglutide 1 mg/dose (2 mg/1.5 1 mg SUBCUT QWEEK 09/07/21 09/20/21 mL) subcutaneous pen injector (Ozempic) multivit,Ca,iron,[id number] 1 cap PO DAILY 09/16/21 09/20/21 3 mg-133 mcg capsule (Body, Hair, Skin and Nails) Previous Rx's Medication Instructions Recorded amoxicillin 875 mg tablet 875 mg PO BID #12 tab 09/19/21 Allergies Allergy/AdvReac Type Severity Reaction Status Date / Time metformin Allergy Mild Rash Verified 09/20/21 09:33 soy Allergy Mild Rash Verified 09/20/21 09:33 egg AdvReac Intermediate Nausea, Verified 09/20/21 09:33 vomiting, rash glipizide AdvReac Mild Fainting Verified 09/20/21 09:33 grass pollen AdvReac Mild Itching Verified 09/20/21 09:33 levofloxacin [From Levaquin] AdvReac Mild Dizziness Verified 09/20/21 09:33 gibbs Allergy Mild Rash Uncoded 09/20/21 09:33 ham Allergy Mild Rash Uncoded 09/20/21 09:33 wood AdvReac Mild Itching Uncoded 09/20/21 09:33 Review of Systems ROS ROS Narrative: Narrative: Constitutional: Denies fever or chills ENT ED: Denies throat pain Cardiovascular: Denies chest pain or palpitations Respiratory: Denies shortness of breath or cough Gastrointestinal: Reports nausea and vomiting; Denies abdominal pain, diarrhea o r melena Genitourinary: Denies dysuria, frequency or hematuria Musculoskeletal: Denies back pain Integumentary: Denies rash Neurological: Denies headache or weakness Psychiatric: Denies anxiety Endocrine: Denies fatigue Hematological/Lymphatic: Denies easy bleeding PFSH Narrative Patient History Narrative: Narrative: Medical/Surgical/Family History All Active Problems (Updated 09/20/21 @ 15:57 by Graeme Hickman MD) DKA (diabetic ketoacidosis) (Acute) Headache (Acute) Stage 1 acute kidney injury (Acute) Depression (Acute) Cigarette smoker (Acute) Uncontrolled type 2 diabetes mellitus (Acute) Pyelonephritis (Acute) Sepsis (Acute) Acute hyperglycemia (Acute) Osteoarthritis of right hip (Acute) Neck pain (Chronic) Menorrhagia (Chronic) Borderline personality disorder (Chronic) Microscopic hematuria (Chronic) Hypertriglyceridemia (Chronic) Ureteric stone (Chronic) Hyperlipidemia (Chronic) Diabetes mellitus (Chronic) Allergic rhinitis (Chronic) Sinusitis (Chronic) Otitis media (Chronic) 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) Female pelvic inflammatory disease (Chronic) Pain in pelvis (Chronic) Nicotine dependence (Chronic) Ankle joint pain (Chronic) Right knee pain (Chronic) Knee injury (Chronic) Sprain of right ankle (Chronic) Anaphylaxis due to ingested food (Chronic) Pseudotumor cerebri (Chronic) Major depression (Chronic) Right hip pain (Chronic) Degeneration of lumbar intervertebral disc (Chronic) Other low back pain (Chronic) Strain of lumbar region (Chronic) Migraine (Chronic) Lumbar radiculopathy (Chronic) Injury of hand, right (Chronic) Hyperglycemia due to type 2 diabetes mellitus (Chronic) Hyperglycemia (Chronic) Dental abscess (Chronic) Anxiety disorder (Chronic) PTSD (post-traumatic stress disorder) (Chronic) Type 2 diabetes mellitus without complications (Chronic) GERD (gastroesophageal reflux disease) (Chronic) History of tobacco use (Chronic) Chronic depression (Chronic) Low back pain (Chronic) Opioid dependence, uncomplicated (Chronic) Chronic pain (Chronic) Urinary tract infection (Chronic) Viral meningitis (Chronic) Contusion, multiple sites (Chronic) Allergy, food (Chronic) Allergic reaction (Chronic) Ankle sprain and strain (Chronic) Medical History Allergic rhinitis Anaphylaxis due to ingested food Ankle joint pain Anxiety disorder Borderline personality disorder Chronic depression Chronic pain Contusion, multiple sites Degeneration of lumbar intervertebral disc Diabetes mellitus Female pelvic inflammatory disease GERD (gastroesophageal reflux disease) History of tobacco use HPV in female Hyperglycemia Hyperglycemia due to type 2 diabetes mellitus Hyperlipidemia Hypertriglyceridemia Injury of hand, right Knee injury Low back pain Lumbar radiculopathy Major depression Menorrhagia Microscopic hematuria Migraine Neck pain Nicotine dependence Opioid dependence, uncomplicated Other low back pain Otitis media Pain in pelvis Pseudotumor cerebri PTSD (post-traumatic stress disorder) Right hip pain Right knee pain Sinusitis Sprain of right ankle Strain of lumbar region Type 2 diabetes mellitus without complications Ureteric stone Urinary tract infection Viral meningitis Surgical History No pertinent past surgical history Family History Other No pertinent family history Social History Smoking Status: Current every day smoker Alcohol Intake Frequency: holiday/special occasion only Substance Use: does not use Exam Narrative Narrative: Narrative: General Limitations: no limitations General appearance: Present alert and in no apparent distress Head Head: Present atraumatic and normocephalic Eye Eye: Present normal appearance and EOMI; Absent scleral icterus or conjunctival injection ENT ENT: Present normal oropharynx and mucous membranes moist Neck Neck: Present normal inspection, full ROM and trachea midline Chest Chest: Present symmetric chest wall rise Respiratory Respiratory: Present normal lung sounds bilaterally; Absent respiratory distress, wheezes, stridor, accessory muscle use or prolonged expiratory phase Cardiovascular Cardiovascular: Present regular rate and normal rhythm; Absent systolic murmur or diastolic murmur Adbominal Abdominal: Present soft; Absent distention, tenderness, guarding, rebound or rigidity Extremities Extremities: Present normal inspection; Absent pretibial edema Back Back: Absent CVA tenderness (R), CVA tenderness (L) or spinous process tenderness Neurological Neurological: Present alert and oriented X3 Psychiatric Psychiatric: Present normal affect and normal mood Skin Skin: Present warm (WNL) and dry Course Consultations Consultation #1: Dr. Rayo, hospitalist Time: 15:55 Vital Signs Vital signs: Vital Signs Temperature 98.0 F 09/20/21 09:30 Pulse Rate 92 H 09/20/21 09:30 Respiratory Rate 20 09/20/21 09:30 Blood Pressure 126/82 09/20/21 09:30 Pulse Oximetry (%) 98 09/20/21 09:30 Temperature 98.0 F 09/20/21 09:30 Pulse Rate 80 09/20/21 16:16 Respiratory Rate 18 09/20/21 16:16 Blood Pressure 145/79 09/20/21 16:16 Pulse Oximetry (%) 100 09/20/21 16:16 MDM MDM Narrative Medical decision making narrative: 41-year-old female presenting with nausea and vomiting. Vital signs are stable. Given her recent admission, will obtain labs, give IV fluids and Zofran, and reevaluate. Labs notable for hyperglycemia, bicarb of 10, and an anion gap of 24. Lactate is normal however her ketones are elevated and pH is 7.3. Will treat for DKA. Patient given 2 L normal saline via IV. Potassium was 3.5, potassium chloride ordered. She was started on an insulin drip and her blood sugar was down to 199, so she was also initiated on D5 half-normal saline. Patient discussed with Dr. Rayo for admission to the ICU. Lab Data Lab results reviewed: Yes I reviewed the patient's lab results. Result diagrams: 09/20/21 13:24 09/20/21 11:50 Labs: Lab Results 09/20/21 09/20/21 09/20/21 Range/Units 11:50 11:50 11:50 WBC TNP RBC TNP Hgb TNP Hct TNP MCV TNP MCH TNP MCHC TNP RDW TNP Plt Count TNP MPV TNP Neut % (Auto) TNP Lymph % (Auto) TNP Luce % (Auto) TNP Eos % (Auto) TNP Baso % (Auto) TNP Lymph # (Auto) TNP Luce # (Auto) TNP Eos # (Auto) TNP Baso # (Auto) TNP Absolute Neutrophils TNP Differential Comment TNP Sodium 135 (133-145) mmol/L Potassium 3.5 (3.3-5.1) mmol/L Chloride 101 (96-108) mmol/L Carbon Dioxide 10 L* (22-30) mmol/L Anion Gap 24.0 H (8.0-16.0) BUN 13 (6-20) mg/dL Creatinine 1.0 (0.6-1.1) mg/dL GFR Calculation 70 Glucose 242 H (70-105) mg/dL Calcium 9.2 (8.6-10.4) mg/dL Total Bilirubin 0.3 (0.1-1.0) mg/dL AST 21 (<32) U/L ALT 28 (<40) U/L Alkaline Phosphatase 162 H (39-117) U/L Total Protein 7.6 (5.9-8.4) gm/dL Albumin 3.3 (3.2-5.2) gm/dL Globulin 4.3 H (2.2-3.7) gm/dL Albumin/Globulin Ratio 0.8 L (1.0-2.3) Lipase 99 H (7-60) U/L Beta-Hydroxybutyrate 4.83 H (<0.27) mmol/L 09/20/21 Range/Units 13:24 WBC 10.2 RBC 4.54 Hgb 13.9 Hct 40.6 MCV 89.4 MCH 30.6 MCHC 34.2 RDW 14.3 Plt Count 273 MPV 10.7 H Neut % (Auto) 78.5 H Lymph % (Auto) 12.7 L Luce % (Auto) 7.8 Eos % (Auto) 0.5 Baso % (Auto) 0.5 Lymph # (Auto) 1.29 L Luce # (Auto) 0.79 Eos # (Auto) 0.05 Baso # (Auto) 0.05 Absolute Neutrophils 7.98 Differential Comment Sodium (133-145) mmol/L Potassium (3.3-5.1) mmol/L Chloride (96-108) mmol/L Carbon Dioxide (22-30) mmol/L Anion Gap (8.0-16.0) BUN (6-20) mg/dL Creatinine (0.6-1.1) mg/dL GFR Calculation Glucose (70-105) mg/dL Calcium (8.6-10.4) mg/dL Total Bilirubin (0.1-1.0) mg/dL AST (<32) U/L ALT (<40) U/L Alkaline Phosphatase (39-117) U/L Total Protein (5.9-8.4) gm/dL Albumin (3.2-5.2) gm/dL Globulin (2.2-3.7) gm/dL Albumin/Globulin Ratio (1.0-2.3) Lipase (7-60) U/L Beta-Hydroxybutyrate (<0.27) mmol/L CC TIME Critical Care Time Critical Care Time: Yes Total Critical Care Time: 30 Attestation: I spent greater than 30 minutes of critical care time, excluding procedures, on the evaluation, management, and consultation of this patient's DKA. Discharge Plan Patient/Caregiver Discharge Instructions Pt seen by COSMETOLOGY EDUCATOR/PA only: No Clinical Impression: DKA (diabetic ketoacidosis) Patient Disposition: Xfer As Inpt ([facility]) Condition: Critical Follow up with: Carlie Berman ARNP [Primary Care Provider] - Prescriptions: No Action rosuvastatin 10 mg tablet 20 mg PO QDAY 0RF duloxetine 60 mg capsule,delayed release(DR/EC) 60 mg PO HS 0RF guaifenesin 600 mg tablet extended release 12hr 600 mg PO BID 0RF acetaminophen-codeine 300-30 mg tablet 1 tab PO TID PRN (Reason: Pain) 0RF Ozempic 1 mg/dose (2 mg/1.5 mL) pen injector 1 mg subcut QWEEK 0RF Rx Instructions: Pt took 0.25mg last monday 09/10, and is to increase by 0.25mg every week. Takes once a week on monday nights tizanidine 2 mg capsule 4 - 8 mg PO 3-4XD 0RF etodolac 200 mg capsule 500 mg PO HS 0RF gabapentin 100 mg capsule 600 mg PO BID 0RF acetazolamide 500 MG capsule, extended release 1,000 mg PO BID 0RF propranolol 10 MG tablet 40 mg PO DAILY 0RF fluoxetine 20 mg capsule 20 mg PO BID 0RF Body, Hair, Skin and Nails 3-133 mg-mcg Capsule 1 cap PO DAILY 0RF amoxicillin 875 mg tablet 875 mg PO BID Qty: 12 0RF Rx Instructions: Begin taking AM 09/20/2021
[2021-09-20] MEDS ORDERED: 0.9 % SODIUM CHLORIDE 1,000 ML IV ONE ×2 (11:10→15:37)
[2021-09-20] MEDS ORDERED: ONDANSETRON 4 MG/2 ML VIAL IV ONE (11:10)
[2021-09-20 13:37] LABS: ALT/SGPT 28 U/L (<40); AST/SGOT 21 U/L (<32); Albumin 3.3 gm/dL (3.2-5.2); Albumin/Globulin Ratio 0.8 (1.0-2.3); Alkaline Phosphatase 162 U/L (39-117); Bilirubin,Total 0.3 mg/dL (0.1-1.0); Blood Urea Nitrogen 13 mg/dL (6-20); Calcium 9.2 mg/dL (8.6-10.4); Carbon Dioxide 10 mmol/L (22-30); Chloride 101 mmol/L (96-108); Globulin 4.3 gm/dL (2.2-3.7); Glomerular Filtration Rate 70; Glucose 242 mg/dL (70-105)
[2021-09-20 14:01] LABS: Basophils # (Auto) 0.05 K/mcL (0.00-0.30); Basophils % (Auto) 0.5 % (0.0-2.0); Eosinophils # (Auto) 0.05 K/mcL (0.00-0.70); Eosinophils % (Auto) 0.5 % (0.0-7.0); Hematocrit 40.6 % (34.1-44.9); Hemoglobin 13.9 g/dL (11.2-15.7); Lymphocytes # (Auto) 1.29 K/mcL (1.50-4.80); Lymphocytes % (Auto) 12.7 % (15.5-49.0); Mean Cell Volume 89.4 fL (80.0-100.0); Mean Corpuscular HGB Conc 34.2 g/dL (31.0-36.0); Mean Platelet Volume 10.7 fL (7.4-10.4); Monocytes # (Auto) 0.79 K/mcL (0.10-0.90); Monocytes % (Auto) 7.8 % (1.0-12.0); Neutrophils % (Auto) 78.5 % (38.0-78.0); Platelet Count 273 K/mcL (140-440); RBC 4.54 M/mcL (3.59-5.38); Red Cell Distribution Width 14.3 % (11.5-14.5); WBC 10.2 K/mcL (4.5-11.0)
[2021-09-20] MEDS ORDERED: INSULIN REGULAR, HUMAN 50 UNIT in 0.9 % SODIUM CHLORIDE 99.5 ML IV SCH (16:00)
--- NOTE | 2021-09-20 16:11 | Internal Med History&Physical ---
HPI History of Present Illness Patient information: Note initiated : 09/20/21 at 4:06 pm Service Date, if different from initiated Date: [] Patient: Conchita Dyer a 41 y/o F admitted on for nausea and vomiting. Chief Complaint: [] History of present illness: Ms. Dyer is a 41 year old F Who was recently admitted for left pyelonephritis was discharged yesterday morning she went home fell asleep in the evening started having some nausea and then this morning had nausea vomiting. Unable to keep anything down. Came to the ED and evaluated and found to be in DKA. Patient states she just takes a short acting insulin 15 units with lunch every day. She was on a long-acting but her pharmacist stopped that tried her on Ozempic but she did not tolerate that and is now only on the short acting once a day and is waiting for new pharmacist to adjust her medication as it appears her diabetes is being managed by pharmacy. Recent A1c was 11.2. Patient likely benefit from restarting of basal insulin. She says the left flank pain that she felt last admission is improving. No new abdominal complaints. She was having some diarrhea but has not had that for day or 2 Review of Systems: Pertinent positives as above. Denies headache/fever/chills/chest or abdominal pain/cough/dyspnea. Otherwise see above. PFSH PFSH All Active Problems (Updated 09/20/21 @ 15:57 by Graeme Hickman MD) DKA (diabetic ketoacidosis) (Acute) Headache (Acute) Stage 1 acute kidney injury (Acute) Depression (Acute) Cigarette smoker (Acute) Uncontrolled type 2 diabetes mellitus (Acute) Pyelonephritis (Acute) Sepsis (Acute) Acute hyperglycemia (Acute) Osteoarthritis of right hip (Acute) Neck pain (Chronic) Menorrhagia (Chronic) Borderline personality disorder (Chronic) Microscopic hematuria (Chronic) Hypertriglyceridemia (Chronic) Ureteric stone (Chronic) Hyperlipidemia (Chronic) Diabetes mellitus (Chronic) Allergic rhinitis (Chronic) Sinusitis (Chronic) Otitis media (Chronic) 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) Female pelvic inflammatory disease (Chronic) Pain in pelvis (Chronic) Nicotine dependence (Chronic) Ankle joint pain (Chronic) Right knee pain (Chronic) Knee injury (Chronic) Sprain of right ankle (Chronic) Anaphylaxis due to ingested food (Chronic) Pseudotumor cerebri (Chronic) Major depression (Chronic) Right hip pain (Chronic) Degeneration of lumbar intervertebral disc (Chronic) Other low back pain (Chronic) Strain of lumbar region (Chronic) Migraine (Chronic) Lumbar radiculopathy (Chronic) Injury of hand, right (Chronic) Hyperglycemia due to type 2 diabetes mellitus (Chronic) Hyperglycemia (Chronic) Dental abscess (Chronic) Anxiety disorder (Chronic) PTSD (post-traumatic stress disorder) (Chronic) Type 2 diabetes mellitus without complications (Chronic) GERD (gastroesophageal reflux disease) (Chronic) History of tobacco use (Chronic) Chronic depression (Chronic) Low back pain (Chronic) Opioid dependence, uncomplicated (Chronic) Chronic pain (Chronic) Urinary tract infection (Chronic) Viral meningitis (Chronic) Contusion, multiple sites (Chronic) Allergy, food (Chronic) Allergic reaction (Chronic) Ankle sprain and strain (Chronic) Medical History Allergic rhinitis Anaphylaxis due to ingested food Ankle joint pain Anxiety disorder Borderline personality disorder Chronic depression Chronic pain Contusion, multiple sites Degeneration of lumbar intervertebral disc Diabetes mellitus Female pelvic inflammatory disease GERD (gastroesophageal reflux disease) History of tobacco use HPV in female Hyperglycemia Hyperglycemia due to type 2 diabetes mellitus Hyperlipidemia Hypertriglyceridemia Injury of hand, right Knee injury Low back pain Lumbar radiculopathy Major depression Menorrhagia Microscopic hematuria Migraine Neck pain Nicotine dependence Opioid dependence, uncomplicated Other low back pain Otitis media Pain in pelvis Pseudotumor cerebri PTSD (post-traumatic stress disorder) Right hip pain Right knee pain Sinusitis Sprain of right ankle Strain of lumbar region Type 2 diabetes mellitus without complications Ureteric stone Urinary tract infection Viral meningitis Surgical History No pertinent past surgical history Family History Other No pertinent family history Social History (Updated 12/07/18 @ 14:26 by Lisa Rivas PA-C) alcohol intake frequency: holiday/special occasion only substance use type: does not use MEDS/ALLERGIES Home Medications and Allergies Home Medications Medication Instructions Recorded Confirmed Type acetazolamide 500 mg 1,000 mg PO BID 01/14/16 09/20/21 History capsule,extended release propranolol 10 mg tablet 40 mg PO DAILY 01/14/16 09/20/21 History fluoxetine 20 mg capsule 20 mg PO BID cap 12/07/18 09/20/21 History gabapentin 100 mg capsule 600 mg PO BID 12/07/18 09/20/21 History etodolac 200 mg capsule 500 mg PO HS 08/11/21 09/20/21 History tizanidine 2 mg capsule 4 - 8 mg PO 3-4XD 08/11/21 09/20/21 History acetaminophen 300 mg-codeine 30 mg 1 tab PO TID PRN 09/07/21 09/20/21 History tablet duloxetine 60 mg capsule,delayed 60 mg PO HS 09/07/21 09/20/21 History release guaifenesin 600 mg tablet, 600 mg PO BID 09/07/21 09/20/21 History extended release 12 hr rosuvastatin 10 mg tablet 20 mg PO QDAY 09/07/21 09/20/21 History semaglutide 1 mg/dose (2 mg/1.5 1 mg SUBCUT QWEEK 09/07/21 09/20/21 History mL) subcutaneous pen injector (Cozy Queen) multivit,Ca,iron,tjt-[id number]-[id number]-JVEF 1 cap PO DAILY 09/16/21 09/20/21 History 3 mg-133 mcg capsule (Body, Hair, Skin and Nails) amoxicillin 875 mg tablet 875 mg PO BID #12 tab 09/19/21 09/20/21 Rx Allergies Allergy/AdvReac Type Severity Reaction Status Date / Time metformin Allergy Mild Rash Verified 09/20/21 09:33 soy Allergy Mild Rash Verified 09/20/21 09:33 egg AdvReac Intermediate Nausea, Verified 09/20/21 09:33 vomiting, rash glipizide AdvReac Mild Fainting Verified 09/20/21 09:33 grass pollen AdvReac Mild Itching Verified 09/20/21 09:33 levofloxacin [From Levaquin] AdvReac Mild Dizziness Verified 09/20/21 09:33 gibbs Allergy Mild Rash Uncoded 09/20/21 09:33 ham Allergy Mild Rash Uncoded 09/20/21 09:33 wood AdvReac Mild Itching Uncoded 09/20/21 09:33 EXAM Constitutional Vitals: Temp Pulse Resp BP Pulse Ox 98.0 F 79 27 H 134/72 98 09/20/21 09:30 09/20/21 15:01 09/20/21 15:01 09/20/21 15:01 09/20/21 15:01 Exam: General: Alert, Awake, No acute Distress, obese Eyes/N/T: EOMI, PERRL, dry MM Head/Neck: neck supple, normocephalic atraumatic CV: RRR, No murmurs, normal s1/s2 Pulm: Clear b/l, no wheezing/rhonchi/rales Abd: soft, nontender, +BS x4 Ext: no clubbing/cyanosis/edema Neuro: Alert, no focal deficits, moves all extremities, CN 2-12 grossly intact, symmetrical strength b/l upper/lower, sensations intact b/l upper/lower Skin: warm/dry DATA Data Completed and Pending Labs: Labs from last 24 hours 09/20/21 09/20/21 09/20/21 13:24 11:50 11:50 WBC 10.2 RBC 4.54 Hgb 13.9 Hct 40.6 MCV 89.4 MCH 30.6 MCHC 34.2 RDW 14.3 Plt Count 273 MPV 10.7 H Neut % (Auto) 78.5 H Lymph % (Auto) 12.7 L [place] % (Auto) 7.8 Eos % (Auto) 0.5 Baso % (Auto) 0.5 Lymph # (Auto) 1.29 L [place] # (Auto) 0.79 Eos # (Auto) 0.05 Baso # (Auto) 0.05 Absolute Neutrophils 7.98 Differential Comment Sodium 135 Potassium 3.5 Chloride 101 Carbon Dioxide 10 L* Anion Gap 24.0 H BUN 13 Creatinine 1.0 GFR Calculation 70 Glucose 242 H Calcium 9.2 Total Bilirubin 0.3 AST 21 ALT 28 Alkaline Phosphatase 162 H Total Protein 7.6 Albumin 3.3 Globulin 4.3 H Albumin/Globulin Ratio 0.8 L Lipase 99 H Beta-Hydroxybutyrate 4.83 H 09/20/21 11:50 WBC TNP RBC TNP Hgb TNP Hct TNP MCV TNP MCH TNP MCHC TNP RDW TNP Plt Count TNP MPV TNP Neut % (Auto) TNP Lymph % (Auto) TNP [place] % (Auto) TNP Eos % (Auto) TNP Baso % (Auto) TNP Lymph # (Auto) TNP [place] # (Auto) TNP Eos # (Auto) TNP Baso # (Auto) TNP Absolute Neutrophils TNP Differential Comment TNP Sodium Potassium Chloride Carbon Dioxide Anion Gap BUN Creatinine GFR Calculation Glucose Calcium Total Bilirubin AST ALT Alkaline Phosphatase Total Protein Albumin Globulin Albumin/Globulin Ratio Lipase Beta-Hydroxybutyrate A/P Narrative A/P Narrative: A: *DKA (DM w/neuropathy): -A1c 11.2 *Recent left pyelonephritis: Discharged on amoxicillin *Obesity: *Pseudotumor cerebri: On acetazolamide *Depression: *Tobacco abuse P: -IVF -insulin gtt until gap closed -pt will require long-acting insulin upon d/c -Continue antibiotics prescribed at discharge -Home medication reconciliation -Smoking cessation counseling -ppx: Lovenox Time Spent With Patient Time: Total time spent is greater than 50% in coordination of care (as documented) at patient's floor/unit and/or counseling patient:
[2021-09-20] MEDS ORDERED: POTASSIUM CHLORIDE 20 MEQ in DEXTROSE 5% IN WATER 250 ML IV ONE (16:21)
[2021-09-20] MEDS: INSULIN REGULAR, HUMAN 50 UNIT in 0.9 % SODIUM CHLORIDE 99.5 ML IV SCH (17:03)
[2021-09-20] MEDS: DEXTROSE 5%-1/2NS 1,000 ML IV SCH (17:09)
[2021-09-20] MEDS ORDERED: SENNOSIDES 1 TABLET PO PRN (17:13)
[2021-09-20] MEDS ORDERED: POTASSIUM CHLORIDE 40 MEQ in DEXTROSE 5% IN WATER 500 ML IV PRN (17:13)
[2021-09-20] MEDS ORDERED: ACETAMINOPHEN W/CODEINE #3 1 TABLET PO PRN (17:13)
[2021-09-20] MEDS ORDERED: 0.9 % SODIUM CHLORIDE 1,000 ML IV SCH (17:13)
[2021-09-20] MEDS ORDERED: MAGNESIUM SULFATE 2 GM/50 ML BAG IV PRN (17:13)
[2021-09-20] MEDS ORDERED: POLYETHYLENE GLYCOL 3350 17 GM PACKET PO PRN (17:13)
[2021-09-20] MEDS ORDERED: POTASSIUM CHLORIDE 20 MEQ TABLET PO PRN ×2 (17:13)
[2021-09-20] MEDS ORDERED: IPRATROPIUM/ALBUTEROL 3 ML AMPUL.NEB NEB PRN (17:13)
[2021-09-20] MEDS: ONDANSETRON 4 MG/2 ML VIAL IV PRN ×2 (17:19→21:06)
[2021-09-20] MEDS ORDERED: tiZANidine 4 MG TABLET PO PRN (17:21)
[2021-09-20 18:13] LABS: Phosphorous 2.8 mg/dL (2.5-4.5)
[2021-09-20] MEDS ORDERED: POTASSIUM CHLORIDE 20 MEQ/10 ML VIAL IV ONE (18:33)
--- OUTSIDE RECORDS SUMMARY | 2021-09-20 19:05 | External Medical Summary | Encounter Summary ---
:1980 Author Organization Department [facility] Address [address] [place] [id number] Care Team Providers Name Role Phone CHARISSE GARCIA Primary Care Provider Unavailable Selected Encounter This section includes the information on record at [facility] for the Encounter. Date/Time Encounter Type Encounter Description Reason Provider Source February 10, 2021 04:20 Outpatient Encounter [facility] PM CONSULT IHE Encounter Template Text not used by [facility] Plan of Treatment: Future Appointments (+ 6 months) and Future Tests (+/- 45 days) The Plan of Treatment section includes future care activities for the patient from all [facility] treatmentfacilities. This section includes future appointments and future orders which are active, pending orscheduled.Future Appointments This section includes appointments that were scheduled to occur 6 months from the date of the Encounter, up to a maximum of 20 appointments. The data comes from all [facility] treatment facilities. Appointment Date/Time Appointment Type Appointment Facili ty Name Feb 16, 2021 02:30 PM AMBULATORY - MEDICINE [facility] Feb 18, 2021 11:00 AM AMBULATORY - PSYCHIATRY [facility] Feb 23, 2021 02:00 PM AMBULATORY - MEDICINE [facility] Mar 05, 2021 10:30 AM AMBULATORY - MEDICINE [facility] Mar 10, 2021 09:30 AM AMBULATORY - PSYCHIATRY [facility] Mar 10, 2021 10:00 AM AMBULATORY - MEDICINE [facility] Mar 16, 2021 11:00 AM AMBULATORY - MEDICINE [facility] Mar 24, 2021 09:30 AM AMBULATORY - PSYCHIATRY [facility] Apr 22, 2021 03:15 PM AMBULATORY - MEDICINE [facility] Apr 23, 2021 02:30 PM AMBULATORY - MEDICINE [facility] Apr 27, 2021 07:30 AM AMBULATORY - PSYCHIATRY [facility] Apr 29, 2021 02:00 PM AMBULATORY - MEDICINE [facility] Marlen[facility]ianka [facility] Apr 29, 2021 02:30 PM AMBULATORY - MEDICINE [facility] May 12, 2021 02:31 PM AMBULATORY - MEDICINE [facility] Jun 04, 2021 03:00 PM AMBULATORY - MEDICINE [facility] Jun 22, 2021 08:30 AM AMBULATORY - MEDICINE [facility] Jun 29, 2021 01:00 PM AMBULATORY - MEDICINE [facility] Jul 01, 2021 08:00 AM AMBULATORY - NONE [facility] Jul 07, 2021 07:00 AM AMBULATORY - NONE [facility] Jul 15, 2021 03:00 PM AMBULATORY - MEDICINE [facility] Active, Pending, and Scheduled Orders This section includes a listing of several types of active, pending, and scheduled orders, including clinic medications orders, diagnostic test orders, procedure orders and consult orders; where the start date of the order is 45 days before the date of the Encounter or 45 days after the date of the Encounter. The data comes from all [facility] treatment facilities. Test Date/Time Test Type Test Details Facility Name Feb 16, 2021 03:11 PM Consult Order [facility]-OP[facility]TH DIS M GMT [facility] Electronic Device Monitor's Choice Mar 23, 2021 08:57 AM Consult Order [facility] Cons Electronic Device Monitor's Choice Lab Results: +/- 30 days of the encounter This section includes the Chemistry and Hematology Lab Results on record with [facility] for the patient. Radiology Reports and Pathology Reports are provided separately, in subsequent sections.Lab Results This section contains the Chemistry/Hematology Results that were resulted 30 days before or 30 daysafter the date of the Encounter. Date/Time Source Result Type Result - Unit Interpretation Reference Range Comment February 09, 2021 [facility] VITAMIN D (25-HYDROXY) Speci men Type: SERUM 11:09 AM Comment: High d oses of Biotin supplements (>5 mg/day) may falsely increase Vitamin B-12, Vitamin D (25OH), Free T4, and Folate results. Test specimens should be collected at least 8 hrs after last i ngestion of high dose biotin. LDL Direct Adult Reference Range: Optimal <100 mg/dL Near optimal/above optimal 100-129 mg/dL Borderline high 130-159 mg/dL High 160-189 mg/dL Very High 190 mg/dL Note t hat non-fasting results may be slightly lower than fasting results. RESULTS CONFIRMED BY REPEAT TESTING. CALLED TO HELIO GARCIA@[id number] 02-10-21/ALBERTO READ BACK OF CRITICAL VALUES OCCURRED FOR CONFIRMATION. CRITICAL RESULT KNOWN/REPORTED 02/10/21 Ordering Provid er: CHARISSE GARCIA Report Released Date/Time: Nov 07, 2020 04:38 PM Reporting Lab: [facility] [place] [address] [place] [id number] Performing Lab: [facility] [place] [address] [place] [address] VITAMIN D (25-HYDROXY) 24.2 ng/mL L 30.0-1 00 February 09, 2021 11:09 AM [facility] MAGNESIUM Specim en Type: SERUM Comment: High d oses of Biotin supplements (>5 mg/day) may falsely increase Vitamin B-12, Vitamin D (25OH), Free T4, and Folate results. Test specimens should be collected at least 8 hrs after last i ngestion of high dose biotin. LDL Direct Adult Reference Range: Optimal <100 mg/dL Near optimal/above optimal 100-129 mg/dL Borderline high 130-159 mg/dL High 160-189 mg/dL Very High 190 mg/dL Note t hat non-fasting results may be slightly lower than fasting results. RESULTS CONFIRMED BY REPEAT TESTING. CALLED TO HELIO GARCIA@8850 02-10-21/ALBERTO READ BACK OF CRITICAL VALUES OCCURRED FOR CONFIRMATION. CRITICAL RESULT KNOWN/REPORTED 02/10/21 Ordering Provid er: CHARISSE GARCIA Report Released Date/Time: Nov 07, 2020 04:38 PM Reporting Lab: [facility] [place] [address] [place] [address] Performing Lab: [facility] [place] [address] [place] [address] MAGNESIUM 1.9 mg/dL 1.6-2.6 February 09, 2021 11:09 AM [facility] VITAMIN B-12 Specim en Type: SERUM Comment: High d oses of Biotin supplements (>5 mg/day) may falsely increase Vitamin B-12, Vitamin D (25OH), Free T4, and Folate results. Test specimens should be collected at least 8 hrs after last ingestion of high dose biotin. Ordering Provid er: CHARISSE GARCIA Report Released Date/Time: Nov 07, 2020 04:38 PM Reporting Lab: [facility] [place] [address] [place] [address] Performing Lab: [facility] Pe[facility] [address] [place] [address] VITAMIN B-12 996 pg/mL [id number] February 09, 2021 [facility] COMPREHENSIVE METABOLIC Spec imen Type: SERUM 11:09 AM PANEL Comment: High d oses of Biotin supplements (>5 mg/day) may falsely increase Vitamin B-12, Vitamin D (25OH), Free T4, and Folate results. Test specimens should be collected at least 8 hrs after last i ngestion of high dose biotin. LDL Direct Adult Reference Range: Optimal <100 mg/dL Near optimal/above optimal 100-129 mg/dL Borderline high 130-159 mg/dL High 160-189 mg/dL Very High 190 mg/dL Note t hat non-fasting results may be slightly lower than fasting results. RESULTS CONFIRMED BY REPEAT TESTING. CALLED TO HELIO GARCIA@0903 02-10-21/NS READ BACK OF CRITICAL VALUES OCCURRED FOR CONFIRMATION. CRITICAL RESULT KNOWN/REPORTED [id number] 02/10/21 Ordering Provid er: CHARISSE GARCIA Report Released Date/Time: Nov 07, 2020 04:38 PM Reporting Lab: [facility] [place] [address] [place] [address] Performing Lab: [facility] [place] [address] [place] [address] GLUCOSE 502 mg/dL 71-109 BUN/UREA (BLOOD UREA NITROGEN) 21 mg/dL 7-23 CREATININE, SERUM 0.9 mg/dL .5-1 SODIUM 133 mmol/L 131-142 POTASSIUM 4.2 mmol/L 3.6-5.4 CHLORIDE 105 mmol/L 95-108 CARBON DIOXIDE 22 mmol/L 21-32 CALCIUM 9.8 mg/dL 8.4-10.5 TOTAL PROTEIN 7.1 g/dL 5.8-7.9 ALBUMIN 4.7 g/dL 3.8-5.2 GLOBULIN 2.4 g/dL 1.5-3.2 AST/SGOT 15 U/L 14-44 ALT/SGPT 23 U/L 9-57 ALKALINE PHOSPHATASE 134 U/L H 45-129 TOTAL BILIRUBIN 0.4 mg/dL 0.2-1.3 GFR ESTIMATION 69.3 mL/min/BSA >60 ANION GAP 10 mmol/L 7-21 GFR ESTIMATION (CKD-EPI) 80 mL/Min/BSA L > 90 February 09, 2021 11:09 [facility] CBC & MORPHOLOGY (WITH Sp ecimen Type: BLOOD AM DIFF) No comment enter ed. Ordering Provid er: CHARISSE GARCIA Report Released Date/Time: Nov 07, 2020 04:38 PM Reporting Lab: [facility] [address] [place] [address] Performing Lab: [facility] [address] [place] [address] WBC (TOTAL WBC COUNT) 10.1 K/L 3.0-10. 6 RBC 4.80 M/L 3.86-5.70 HEMOGLOBIN 14.6 g/dL 11.8-17.1 HCT 44.4 % 36-51 MCV 92.5 fL 81-102 MCH 30.4 pg 27-31 MCHC 32.9 g/dL 32-36 PLT 296 K/L 150-400 RDW 12.1 % 11.2-16.2 NEUT % 71.9 % 44-74 LYMP % 18.7 % 15-42 MONO % 5.8 % 4-13 EOS % 2.6 % 0-7 BASO % 0.8 % 0-2 NEUTROPHILS, ABSOLUTE 7.3 K/L H 1.2-7.0 LYMPHOCYTES, ABSOLUTE 1.9 K/L 0.6-3.4 MONOCYTES, ABSOLUTE 0.6 K/L 0.2-1.0 EOSINOPHILS, ABSOLUTE 0.3 K/L 0.0-0.5 BASOPHILS, ABSOLUTE 0.1 K/L 0.0-0.2 IMMATURE GRANULOCYTE % 0.2 % 0-0.9 IMMATURE GRANULOCYTES, ABSOLUTE 0.02 K/L 0-0.07 February 09, 2021 [facility] THYROID STIMULATING Specimen Type: SERUM 11:09 AM HORMONE Comment: High d oses of Biotin supplements (>5 mg/day) may falsely increase Vitamin B-12, Vitamin D (25OH), Free T4, and Folate results. Test specimens should be collected at least 8 hrs after last i ngestion of high dose biotin. LDL Direct Adult Reference Range: Optimal <100 mg/dL Near optimal/above optimal 100-129 mg/dL Borderline high 130-159 mg/dL High 160-189 mg/dL Very High 190 mg/dL Note t hat non-fasting results may be slightly lower than fasting results. RESULTS CONFIRMED BY REPEAT TESTING. CALLED TO HELIO GARCIA@8023 02-10-21/NS READ BACK OF CRITICAL VALUES OCCURRED FOR CONFIRMATION. CRITICAL RESULT KNOWN/REPORTED [id number] 02/10/21 Ordering Provid er: CHARISSE GARCIA Report Released Date/Time: Nov 07, 2020 04:38 PM Reporting Lab: [facility] [address] [place] [address] Performing Lab: [facility] [place] [address] THYROID STIMULATING HORMONE 2.02 IU/mL 0.300-4.25 February 09, 2021 11:09 AM [facility] LIPID PANEL Specim en Type: SERUM Comment: High d oses of Biotin supplements (>5 mg/day) may falsely increase Vitamin B-12, Vitamin D (25OH), Free T4, and Folate results. Test specimens should be collected at least 8 hrs after last i ngestion of high dose biotin. LDL Direct Adult Reference Range: Optimal <100 mg/dL Near optimal/above optimal 100-129 mg/dL Borderline high 130-159 mg/dL High 160-189 mg/dL Very High 190 mg/dL Note t hat non-fasting results may be slightly lower than fasting results. RESULTS CONFIRMED BY REPEAT TESTING. CALLED TO HELIO RADHA@6727 02-10-21/NS READ BACK OF CRITICAL VALUES OCCURRED FOR CONFIRMATION. CRITICAL RESULT KNOWN/REPORTED [id number] 02/10/21 Ordering Provid er: CHARISSE GARCIA Report Released Date/Time: Nov 07, 2020 04:38 PM Reporting Lab: [facility] [address] [place] [address] Performing Lab: [facility] [place] [address] [place] [address] CHOLESTEROL 246 mg/dL H <199 TRIGLYCERIDE 909 mg/dL H <149 HDL CHOLESTEROL 28 mg/dL L >40 NON-HDL CHOLESTEROL 218 mg/dL <130 LDL, DIRECT 86 mg/dL 0-129 February 09, 2021 11:09 AM [facility] URINALYSIS (IRIS) Spec imen Type: URINE No comment enter ed. Ordering Provid er: CHARISSE GARCIA Report Released Date/Time: Nov 07, 2020 04:38 PM Reporting Lab: [facility] [place] [address] [place] [address] Performing Lab: [facility] [address] [place] [address] URINE COLOR Light-Yellow SPECIFIC GRAVITY 1.032 H 1.003-1.030 URINE BILIRUBIN 2+ Neg URINE KETONES NEGATIVE mg/dL Neg URINE GLUCOSE >1000 mg/dL Neg URINE PROTEIN NEGATIVE mg/dL Neg URINE PH 6.5 5.0-8.0 URINE WBC/HPF 2 /HPF 0-5 URINE MUCUS RARE URINE RBC/HPF 19 /HPF H 0-3 APPEARANCE CLEAR SQUAMOUS EPITHELIAL <1 /HPF 0-4 URINE BLOOD TRACE Neg NITRITE, URINE NEGATIVE Neg LEUKOCYTE ESTERASE, URINE NEGATIVE NEGA TIVE URINE UROBILINOGEN (IRIS) NORMAL mg/dL < 2 February 09, 2021 11:09 AM [facility] HEMOGLOBIN A1C Specim en Type: BLOOD Comment: Target A1C values should be individualized. Better understanding of A1C test result accuracy is essential if clinicians are to interpret results for Veterans, and discuss treatment options thr ough the process of Shared Decision Making. For questions regarding the performance characteristics of this test, providers should contact the main laboratory. Patients should contact their healthcare provider. Ordering Provid er: CHARISSE GARCIA Report Released Date/Time: Nov 07, 2020 04:38 PM Reporting Lab: [facility] [address] [place] [address] Performing Lab: [facility] [address] [place] [address] HEMOGLOBIN A1C 14.4 % H 0-5.6 Social History: Smoking Status (Most current) and Tobacco Use (All prior to encounter date) This section includes the most current, and the historical, smoking and tobacco-related health factors from the [place] facility where the Encounter took place.Current Smoking Status This section includes the most current smoking, or tobacco-related health factor, from the [facility] facility where the Encounter took place. Date/Time Current Smoking Status Comment Facility Jan 07, 2009 09:40 AM [facility] Encounter Notes: All associated encounter notes This section contains the clinical notes associated to the Encounter. Date/Time Encounter Note(s) Provider Source February 10, 2021 04:20 PM ADMINISTRATIVE NOTE: GIULIANO GAMINO LOCAL TITLE: ADMINISTRATIVE NOTE [facility] STANDARD TITLE: ADMINISTRATIVE NOTE DATE OF NOTE: FEBRUARY 10, 2021@16:20 ENTRY DATE: FEBRUARY 10, 2021@16:20:25 AUTHOR: GIULIANO GAMINO EXP COSIGNER: URGENCY: STATUS: COMPLETED CALLED ,LEFT VM. CALLING TO SCHEDULE CONS ULT FOR DIETITIAN. PID 6/8 PLEASE TRANSFER TO [facility] FOR SCHEDULING. /elina/ GIULIANO NEGRON Signed: 02/10/2021 16:21
--- OUTSIDE RECORDS SUMMARY | 2021-09-20 19:05 | External Medical Summary | Continuity of Care Document ---
:1980 Author Organization [facility] Care Team Providers Name Role Phone [facility] Unavailable Unavailable Problems Combined list of problems from Department of Defense and Veterans Affairs facilities. It does not include entries that were removed or entered in error. Problem Status Onset Problem Date of Comments Source Date Type Resolution Pseudotumor cerebri Active 02/01/ Condition February 09, 2019 [facility] 2018 Entered By: CLINIC CHARISSE GARCIA Comment: [place] [facility] cljazz St[place] sent referral to neurologist ROBERT Anaphylaxis due to Active 11/16/ Condition [place] [facility] Ambulatory ingested [address] Andres curry food(Confirmed)1 [place] food allergies Anaphylaxis due to Active 11/16/ Condition Jun 03, 2018 [facility] ingested food 2017 Entered By: CLIN IC CHARISSE GARCIA Comment: [place] foot injestion Dr Lassiter food allergies Ankle joint Active 08/15/ Condition X ray 07/2018 A mbulatory pain(Confirmed)2 2015 6mm ossificat ion Pharmacy medial ankle loose body post old avulsion fx off medial talar, done age undetermined, spur talar neck, possible impingement and mod effusion [place] [facility] Ankle joint pain Active 08/15/ Condition Dec 16 [facility] 2015 Entered By: CLINIC CHARISSE GARCIA Comment: X ray 07/2018 6mm ossification medial ankle loose body post old avulsion fx off medial talar, done age undetermined, spur talar neck, possible impingement and mod effusion [place] X [facility] Ca cervix - screening Active 05/02/ Condition 2015 neg Ambulatory done(Confirmed)4 2015 due again 04/19 021 Pharmacy 5 yr Ca cervix - screening Active 05/02/ Condition Mar 192020 [facility] done 2015 Entered By: CHARISSE AYERS Comment: 2014 neg pap and P HPN, [address] Randolph, 03/2021 [place] pending Viral Active 01/13/ Condition Ambulatory meningitis(Confirmed) 2016 Pharmacy Migraine Active 01/13/ Condition [facility] Kristy 2016 CLINIC Viral meningitis Active 01/13/ Condition [facility] 2016 CLINIC Ureteric Active 12/04/ Condition 2 stones left Amb ulatory stone(Confirmed)2014 ureter P harmacy 12/04/2014
sm all non obstructing stones in bilat kidneys Ureteric stone Active 12/04/ Condition Dec 08, 2014 [facility] 2014 Entered By: [facility] CHARISSE GARCIA Comment: 2 stones left ureter 12/04/2014 Dec 08, 2014 Entered By: CHARISSE GARCIA Comment: small non obstructing stones in bilat kidneys Sprain of Active 01/02/ Condition Xray 01/02/14 Ambu latory metacarpophalangeal 2013 no fx fing er Pharmacy joint(Confirmed)12 joint ER, D x jont pain Etodolac tx Sprain of Active 01/02/ Condition January 27, 2014 [facility] metacarpophalangeal 2013 Entered By : [facility] joint CHARISSE GARCIA Comment: Xray 01/02/14 no fx finger joint ER, Dx jont pain Etodolac tx Influenza(Confirmed)6 Active 09/29/ Condition Tamif cheryl given Ambulatory 2013 [facility] Influenza Active 09/29/ Condition Nov 16, 2013 [facility] 2013 Entered By: [facility] CHARISSE GARCIA Comment: Tamiflu given [facility] Acute otitis Active Condition Ambulat ory media(Confirmed) Pha rmacy Acute Active Condition Ambulatory sinusitis(Confirmed) Pharmacy Allergic Active Condition Ambulatory rhinitis(Confirmed) Pharmacy Benign intracranial Active Condition [facility] Ambulatory hypertension (SNOMED [facility]nic [facility] sent referral to [id number])(Confirmed)3 neurolog ist ROBERT Borderline personality Active Condition Ambulatory disorder (SNOMED CT Pharmacy [id number])(Confirmed) Chronic Active Condition Ambulatory sinusitis(Confirmed) Pharmacy Contraception (SNOMED Active Condition Ambulatory [facility] [id number])(Confirmed) Degeneration of lumbar Active Condition Ambulatory intervertebral Pharm acy disc(Confirmed) Diabetes mellitus Active Condition dx 2005,a ctos Ambulatory (SNOMED CT Pharmacy [id number])(Confirmed)5 HPV - Human Active Condition Ambulato ry papillomavirus test Pharmacy positive(Confirmed) Hyperlipidemia(Confirm Active Condition Ambulatory ed) Pharmacy Hypertriglyceridemia(C Active Condition Ambulatory onfirmed) Pharmacy Female pelvic Active Condition Ambula tory inflammatory Pharmac y disease(Confirmed) Knee Active Condition 05/24/2017 MRI Ambu latory injury(Confirmed)7 right knee Pharmacy microtrabecular fracture, bone marrow edema medial right tibia, bone bruise Knee: Active Condition no current Ambula tory arthralgia(Confirmed)8 pain Pharmacy Low back pain (SNOMED Active Condition resol alvina with Ambulatory CT PT
03/22/2018 Phar bong [id number])(Confirmed)9 Major Active Condition Ambulatory depression(Confirmed) Pharmacy Menorrhagia (SNOMED CT Active Condition Ambulatory [id number])(Confirmed) Pharmacy Microscopic Active Condition Ambulato ry hematuria(Confirmed) Pharmacy Migraine(Confirmed)10 Active Condition tried Ambulatory topamax,zomig-ga Pha rmacy bapentin started 12/25 Neck Pain (ICD-9-CM Active Condition Only dash s this Ambulatory 723.1)(Confirmed)11 with migra andry Pharmacy Nicotine Active Condition Ambulatory dependence(Confirmed) Pharmacy Pain in Active Condition Ambulatory pelvis(Confirmed) Ph armacy Right hip Active Condition Ambulatory pain(Confirmed) Phar bong Pain in right Active Condition Ambula tory knee(Confirmed) Phar bong Papilledema associated Active Condition Ambulatory with increased Pharm acy intracranial pressure (ICD-9-CM 377.01)(Confirmed) Recurrent major Active Condition Ambu latory depression (SNOMED CT Pharmacy [id number])(Confirmed) Sprain of right Active Condition Ambu latory ankle(Confirmed) Pha rmacy Acute otitis media Active Condition [facility] Acute sinusitis Active Condition [facility] Allergic rhinitis Active Condition [facility] Benign intracranial Active Condition [facility] hypertension (SNOMED [facility] [id number]) [facility] Borderline personality Active Condition [facility] disorder (SNOMED CT CLINIC ) Chronic sinusitis Active Condition [facility] Contraception (SNOMED Active Condition [facility] CT [id number]) CLINIC Decreased vitamin D Active Condition [facility] Degeneration of lumbar Active Condition [facility] intervertebral disc CLINIC Depressive Do Nos Active Condition [facility] Diabetes mellitus Active Condition Jan 07, 009 MATI[facility] Perera (SNOMED CT [id number]) Entered B y: DEISI LAWRENCE [facility] TEREZA Comment: dx 2004,actos DM - Diabetes mellitus Active Condition [facility] Female pelvic Active Condition [facility] inflammatory disease CLINIC HPV - Human Active Condition [facility] papillomavirus test CLINIC positive Hyperlipidemia Active Condition [facility] Hypertriglyceridemia Active Condition [facility] Knee injury Active Condition Jun 17, 2017 [facility] Entered By: CHARISSE AYERS Comment: 05/24/2017 MRI right knee microtrabecular fracture, bone marrow edema medial right tibia, bone bruise Knee: arthralgia Active Condition Sep 27 11 [facility] Entered By: BASIL MCMULLEN [facility] Comment: no current pain Lateral epicondylitis Active Condition [facility] of right humerus CLI JAZZ Low back pain (SNOMED Active Condition Sep 182010 [place] [id number]) Entered By: BASIL LANDA [facility] Comment: resolved with PT May 06, 2018 Entered By: CHARISSE GARCIA Comment: X ray mild DJD facets L4-5 X ray [facility] May 06, 2018 Entered By: CHARISSE GARCIA Comment: 03/22/2018 Major depression Active Condition [facility] Menorrhagia (SNOMED CT Active Condition [facility] [id number]) CLINIC Microscopic hematuria Active Condition [facility] Migraine, unspecified, Active Condition Jan 07, 2009 [facility] without mention of Entered By: [facility] Intractable Migraine EDINGER,Ana AURIE [facility] without mention o TEREZA Comm ent: tried topamax,zomig-ga bapentin started 12/25 Migraine, unspecified, Active Condition [facility] without mention of [facility] Intractable Migraine CENTER without mention o Neck Pain (ICD-9-CM Active Condition Sep 27, 2010 [facility] 723.1) Entered By: BASIL MCMULLEN [facility] Comment: Only has this with migraines Nicotine dependence Active Condition [facility] Pain in pelvis Active Condition [facility] Pain in right knee Active Condition [facility] Papilledema associated Active Condition [facility] with increased [facility] RIGHT intracranial pressure [facility] (ICD-9-CM 377.01) Pseudotumor Cerebri Active Condition [facility] Recurrent major Active Condition [facility]HNAZ Perera depression (SNOMED CT [facility] [id number]) [facility] Right hip pain Active Condition [facility] Sprain of right ankle Active Condition [facility] Depression Inactive Condition 09/26/2011 [facility] Diagnosis: ICD-10-CM active Diagnosis JEYSON NASH E11.65 Type 2 diabetes CLINIC mellitus with hyperglycemiawith Provider Comments: DM - Diabetes mellitus ([facility] [id number]) Diagnosis: ICD-10-CM active Diagnosis [facility] Perera E11.8 Type 2 diabetes [facility] mellitus with [facility] unspecified complicationswith Provider Comments: Diabetes mellitus ([facility] [id number]) Diagnosis: ICD-10-CM active Diagnosis JEYSON NASH M77.11 Lateral CLINI C epicondylitis, right elbowwith Provider Comments: Lateral epicondylitis of right humerus (SNOMED CT [id number]) Diagnosis: ICD-10-CM active Diagnosis JEYSON NASH M51.36 Other CLINIC intervertebral disc degeneration, lumbar regionwith Provider Comments: Degeneration of lumbar intervertebral disc ([facility] [id number]) Diagnosis: ICD-10-CM active Diagnosis JEYSON NASH Z04.9 Encounter for CLINIC examination and observation for unsp reasonwith Provider Comments: Exam/Observation for Unspec Reason Diagnosis: ICD-10-CM active Diagnosis MATI[facility] Perera Z71.89 Other specified [facility] counselingwith [facility] Provider Comments: Other specified counseling Diagnosis: ICD-10-CM active Diagnosis JEYSON NASH F33.9 Major depressive CLINIC disorder, recurrent, unspecifiedwith Provider Comments: Recurrent major depression ([facility] [id number]) Diagnosis: ICD-10-CM active Diagnosis JEYSON NASH Z71.89 Other specified CLINIC counselingwith Provider Comments: Counseling,Oth Specified Diagnosis: ICD-10-CM active Diagnosis JEYSON NASH Z11.52 Encounter for CLINIC screening for COVID-19with Provider Comments: Screen for COVID-19 Diagnosis: ICD-10-CM active Diagnosis JEYSON NASH Z79.891 [facility] (current) use of opiate analgesicwith 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36 Other CLINIC intervertebral disc degeneration, lumbar regionwith Provider Comments: Degeneration of lumbar intervertebral disc (SNOMED CT [id number]) Medications Combined list of outpatient medications from Department of Defense and Veterans Affairs facilities. Medications provided include [facility] and 2) patient-reported medications. Medication Details Route Status Patient Prescription Prescription Last Ordering Order Source Instructions Expires Number Dispense Provider Date Date ACCU-CHEK
MIS Complet 07/16/2020 Ambulat *PEE* CELLANEO ed ory METER US, USE Pharmac METER y DIRECTED TO TEST BLOOD SUGARS, 0 total refill(s ) ACCU-CHEK USE THE MISCEL 10/30/2020 [id number] RADHA, YAW 08/03/ [facility] GUIDE METER LANEOU 0 ION E 2019 N [place] (GLUCOSE) DIRECTED S CLINIC METER NEEDED FOR BLOOD GLUCOSE TESTING Acetaminoph
Ora Oral Discont 01/22/2020 Ambulat en / l, BID, (given inued ory Codeine TAKE 1 by Pharmac TABLET mouth) y BY MOUTH TWICE A DAY NEEDED FOR PAIN, 0 total refill(s ), Physicia n Stop Acetaminoph
Ora Oral Ordered Amb ulat en / l, TAKE (given ory Codeine 2 by Pharmac TABLETS mouth) y BY MOUTH EACH MORNING NEEDED AND TAKE 1 TABLET AT BEDTIME FOR PAIN, 0 total refill(s ) Acetaminoph
Ora Oral Discont 07/03/2017 Ambulat en / l, QID, (given inued ory Hydrocodone TAKE ONE by Pharm ac HALF TO mouth) y ONE TABLET BY MOUTH FOUR TIMES A DAY NEEDED FOR PAIN, 0 total refill(s ), Physicia n Stop Acetaminoph
Ora Oral Complet 07/16/2020 Ambulat en / l, BID, (given ed ory Hydrocodone TAKE ONE by Pharm ac TABLET mouth) y BY MOUTH TWICE A DAY FOR PAIN, 0 total refill(s ) ACETAMINOPH TAKE 2 Discont 02/17/2021 [id number] RADHA, 09/28/ [place] EN/CODEINE TABLETS inued 0 CHARISSE E 2020 [place] 300-60MG BY MOUTH [facility] ORAL TAB EACH MORNING NEEDED AND TAKE 1 TABLET AT BEDTIME FOR PAIN ACETAMINOPH TAKE 2 Discont 09/18/2020 [id number] GARCIA, 08/17/ [place] EN/CODEINE TABLETS inued 0 2019 [place] 300-60MG BY MOUTH [facility] ORAL TAB EACH MORNING NEEDED AND TAKE 1 TABLET AT BEDTIME FOR PAIN Acetazolami
100 Oral Discont 01/22/2020 Ambulat de 0 mg, (given inued ory Oral, by Pharmac BID, mouth) y TAKE TWO CAPSULES BY MOUTH TWICE A DAY TO DECREASE THE SWELLING OF THE OPTIC NERVE ( PSEUDOTU MOR CEREBRI ) DOSAGE HAS BEEN VERIFIED WITH Umair FULLER total refill(s ), Physicia n Stop Acetazolami
100 Oral Ordered Amb ulat de 0 mg, (given ory Oral, by Pharmac BID, mouth) y TAKE TWO CAPSULES BY MOUTH TWICE A DAY TO DECREASE THE SWELLING OF THE OPTIC NERVE ( PSEUDOTU MOR CEREBRI ) DOSAGE HAS BEEN VERIFIED WITH Umair FULLER total refill(s ) acetaZOLAMI TAKE TWO Active 08/11/2022 [id number] GARCIA , 08/22/ [place] 500 MG CAPSULES 1 2020 [place] ORAL CPER BY MOUTH [facility] TWICE A DAY TO DECREASE THE SWELLING OF THE OPTIC NERVE (PSEUDOT UMOR CEREBRI) * DOSAGE HAS BEEN VERIFIED WITH DR CANELA acetaZOLAMMallika TAKE TWO Discont 05/16/2022 [id number] MARTHA H, 08/22/ [place] 500 MG CAPSULES inued 1 2020 [place] ORAL CPER BY MOUTH [facility] TWICE A DAY TO DECREASE THE SWELLING OF THE OPTIC NERVE (PSEUDOT UMOR CEREBRI) * DOSAGE HAS BEEN VERIFIED WITH DR CANELA ACETAZOLAMMallika TAKE TWO ORAL ACTIVE 08/11/2022 [id number] ,NOV 26/ [place] 500MG CAPSULES 2020 N [place] [facility], BY MOUTH CLINIC TWICE A DAY TO DECREASE THE SWELLING OF THE OPTIC NERVE (PSEUDOT UMOR CEREBRI) * DOSAGE HAS BEEN VERIFIED WITH DR CANELA ACETAZOLAMI TAKE TWO ORAL DISCONT 05/16/2022 [id number] S MITH,NOV 23/ [place] 500MG CAPSULES INUE 1 2020 N [place] CAP,SA BY MOUTH CLINIC TWICE A DAY TO DECREASE THE SWELLING OF THE OPTIC NERVE (PSEUDOT UMOR CEREBRI) * DOSAGE HAS BEEN VERIFIED WITH DR CANELA ACETAZOLAMI TAKE TWO ORAL 01/22/2021 [id number] GARCIA,NOV 20/ [place] 500MG CAPSULES 1 ION E 2019 N [place] CAP,SA BY MOUTH CLINIC TWICE A DAY TO DECREASE THE SWELLING OF THE OPTIC NERVE ( PSEUDOTU MOR CEREBRI ) DOSAGE HAS BEEN VERIFIED WITH DR CANELA AMOXICILLIN TAKE ONE ORAL ACTIVE GARCIA,NOV 21/ [place] TRIHYDRATE TABLET ION E 2020 N [place] 875MG/CLAVU BY MOUTH CLINI C LANATE K TWICE A 125MG TAB DAY AMOXICILLIN TAKE ONE ORAL ACTIVE GARCIA,NOV 21/ [place] TRIHYDRATE TABLET ION E 2020 N [place] 875MG/CLAVU BY MOUTH CLINI C LANATE K TWICE A 125MG TAB DAY APAP TAKE TWO ORAL ACTIVE MELDER,NESSA 05/02/ TO 250MG/ASA TABLETS NNY A 2017 N [place] 250MG/CAFN BY MOUTH CLINIC 65MG TAB EVERY DAY NEEDED atorvastati
10 Oral Discont 04/24/2018 Ambulat n mg, (given inued ory Oral, by Pharmac Daily, mouth) y TAKE ONE TABLET BY MOUTH EVERY DAY FOR CHOLESTE ROL, 0 total refill(s ), Physicia n Stop atorvastati
10 Oral Complet 07/16/2020 Ambulat n mg, (given ed ory Oral, by Pharmac Daily, mouth) y TAKE ONE TABLET BY MOUTH EVERY DAY FOR CHOLESTE ROL, 0 total refill(s ) atorvastati
20 Oral Ordered Ambu lat n mg, (given ory Oral, by Pharmac Daily, mouth) y TAKE ONE TABLET BY MOUTH EVERY DAY FOR CHOLESTE ROL, 0 total refill(s ) atorvastati TAKE ONE Discont 03/10/2021 [id number] MARTHA H, [place] n (U/D) 20 TABLET inued 1 CHARISSE2020 [place] MG ORAL TAB BY MOUTH [facility] EVERY DAY FOR CHOLESTE ROL ATORVASTATI TAKE ONE ORAL DISCONT 03/10/2021 [id number] S MITH,NOV 24/ [place] CA 20MG TABLET INUED 1 ION E 2019 N [facility] TAB BY MOUTH CLINIC EVERY DAY FOR CHOLESTE ROL Cetirizine
10 Oral Discont 06/14/2018 Ambulat mg, (given inued ory Oral, by Pharmac Daily, mouth) y TAKE ONE TABLET BY MOUTH EVERY DAY FOR ALLERGIE S FOR ALLERGIC RHINITIS , 0 total refill(s ), Physicia n Stop Chantix TAKE ONE Active 05/16/2022 [id number] GARCIA, [place] (Varencline TABLET 1 2020 [place] Eq.) Tablet BY MOUTH [facility] 1 mg Oral TWICE A DAY FOR TOBACCO CESSATIO N Chantix TAKE ONE Discont 08/18/2021 [id number] GARCIA, 0 [place] (Varencline TABLET inued 0 2020 [place] Eq.) Tablet BY MOUTH [facility] 1 mg Oral TWICE A DAY FOR TOBACCO CESSATIO N cholecalcif TAKE TWO Active 02/24/2022 [id number] GARCIA , [place] (VIT D3) TABLETS 1 2020 [place] 2,000 UNIT BY MOUTH [facility] ORAL TAB EVERY DAY FOR VITAMIN D SUPPLEME NT. INCREASE D DOSAGE cholecalcif TAKE ONE Discont 09/28/2021 [id number] MARTHA H, [place] (VIT D3) TABLET inued 1 2020 [place] 2,000 UNIT BY MOUTH [facility] ORAL TAB EVERY DAY FOR VITAMIN D SUPPLEME NT Cholecalcif
200 Oral Ordered Amb ulat srikanth 0 (given ory unit(s), by Pharmac Oral, mouth) y Daily, TAKE ONE TABLET BY MOUTH EVERY DAY FOR VITAMIN D SUPPLEME NT, 0 total refill(s ) CHOLECALCIF TAKE TWO ORAL ACTIVE 02/24/2022 [id number] ,NOV 21/ [place] SRIKANTH 50MCG TABLETS 2020 N [place] (2,000UNIT) BY MOUTH CLINI C TAB EVERY DAY FOR VITAMIN D SUPPLEME NT. INCREASE D DOSAGE CHOLECALCIF TAKE ONE ORAL DISCONT 09/28/2021 [id number] GARCIANOV 16/ [place] SRIKANTH 50MCG TABLET INUED 1 ION E 2020 N [place] (2,000UNIT) BY MOUTH (EDIT) CLIN IC TAB EVERY DAY FOR VITAMIN D SUPPLEME NT CODEINE TAKE 2 ORAL ACTIVE 12/08/2021 [id number] GARCIA,MAR 0 06/07/ [place] 60MG/ACETAM TABLETS 1 ION E 2020 N [place] INOPHEN BY MOUTH CLINIC 300MG TAB EACH MORNING NEEDED AND TAKE 1 TABLET AT BEDTIME FOR PAIN CODEINE TAKE 2 ORAL DISCONT 08/26/2021 [id number] RADHA,YAW 02/24/ [place] 60MG/ACETAM TABLETS INUE 1 ION E 2020 N [place] INOPHEN BY MOUTH CLINIC 300MG TAB EACH MORNING NEEDED AND TAKE 1 TABLET AT BEDTIME FOR PAIN CODEINE TAKE TWO ORAL DISCONT 03/30/2021 [id number] Marlen GARCIA 10/02/ [place] 60MG/ACETAM TABLETS INUE 1 ION E 2020 N [place] INOPHEN BY MOUTH CLINIC 300MG TAB AM NEEDED AND TAKE ONE TABLET BY MOUTH AT BEDTIME FOR PAIN CODEINE TAKE TWO ORAL DISCONT 02/17/2021 [id number] ARMDIA GARCIA 08/17/ [place] 60MG/ACETAM TABLETS INUE 0 ION E 2019 N [place] INOPHEN BY MOUTH CLINIC 300MG TAB AM NEEDED AND TAKE ONE TABLET BY MOUTH AT BEDTIME FOR PAIN CODEINE TAKE TWO ORAL DISCONT 09/18/2020 [id number] ARMIDA GARCIA 03/27/ [place] 60MG/ACETAM TABLETS INUE 0 ION E 2020 N [place] INOPHEN BY MOUTH CLINIC 300MG TAB AM NEEDED AND TAKE ONE TABLET BY MOUTH AT BEDTIME FOR PAIN Codeine TAKE 2 Active 12/08/2021 [id number] RADHA, 07/21 0/ [place] Phosphate/A TABLETS 1 [place] cetaminophe BY MOUTH [facility] n (Tylenol EACH W/Codeine MORNING #4 Eq.) Tablet NEEDED 60-300 mg AND TAKE Oral 1 TABLET AT BEDTIME FOR PAIN Codeine TAKE 2 Discont 08/26/2021 [id number] RADHA, / [place] Phosphate/A TABLETS inued 1 [place] E [place] cetaminophe BY MOUTH [facility] n (Tylenol EACH W/Codeine MORNING #4 Eq.) Tablet NEEDED 60-300 mg AND TAKE Oral 1 TABLET AT BEDTIME FOR PAIN Codeine TAKE 2 Discont 03/30/2021 [id number] GARCIA, / [place] Phosphate/A TABLETS inued 1 [place] cetaminophe BY MOUTH [facility] n (Tylenol EACH W/Codeine MORNING #4 Eq.) Tablet NEEDED 60-300 mg AND TAKE Oral 1 TABLET AT BEDTIME FOR PAIN CRESTOR TAKE ONE Active 02/24/2022 [id number] GARCIA, / [place] (BRAND) 20 TABLET 1 2020 [place] MG ORAL TAB BY MOUTH [facility] EVERY DAY FOR CHOLESTE ROL cyclobenzap
10 Oral Discont 01/11/2019 Ambulat rine mg, (given inued ory Oral, by Pharmac BID, mouth) y TAKE ONE TABLET BY MOUTH TWICE A DAY FOR MUSCLE SPASM, 0 total refill(s ), Physicia n Stop DEXTROSE 4 CHEW Active 08/26/2022 [id number] MELDER, 1 10/30/ [place] GM ORAL FOUR 1 JAIDEN A 2020 [place] CHEW TABLETS [facility] BY MOUTH ONCE NEEDED FOR LOW BLOOD SUGARS. WAIT 15 MINUTES AND REPEAT IF STILL HAVING SYMPTOMS . Diclofenac
Top Topica Ordered Amb ulat ical, l (on ory QID, the Pharmac APPLY skin) y 2-4 GRAMS DIRECTED TO AFFECTED AREA FOUR TIMES A DAY NEEDED FOR PAIN * LIMIT DAILY DOSE TO 8 GRAMS TO UPPER BODY AND 16 GRAMS TO LOWER BODY, 0 total refill(s ) Diclofenac
Top Topica Discont 03/10/2020 Ambulat ical, l (on inued ory QID, the Pharmac APPLY skin) y 2-4 GRAMS DIRECTED TO AFFECTED AREA FOUR TIMES A DAY NEEDED FOR PAIN * LIMIT DAILY DOSE TO 8 GRAMS TO UPPER BODY AND 16 GRAMS TO LOWER BODY, 0 total refill(s ), Physicia n Stop DICLOFENAC APPLY Discont 03/10/2021 [id number] GARCIA, 0 12/07/ [place] 1 % TOP GEL 2-4 inued 0 2020 [place] [100 GM] GRAMS [facility] DIRECTED TO AFFECTED AREA FOUR TIMES A DAY NEEDED FOR PAIN * LIMIT DAILY DOSE TO 8 GRAMS TO UPPER BODY AND 16 GRAMS TO LOWER BODY DICLOFENAC APPLY TOPICA ACTIVE 12/05/2021 [id number] Marlen GARCIA AR 12/07/ [place] NA 1% 2-4 L 1 ION E 2020 N [place] GEL,TOP GRAMS CLINIC DIRECTED TO AFFECTED AREA FOUR TIMES A DAY NEEDED FOR PAIN * LIMIT DAILY DOSE TO 8 GRAMS TO UPPER BODY AND 16 GRAMS TO LOWER BODY DICLOFENAC APPLY TOPICA DISCONT 03/10/2021 [id number] GARCIA, NOV 22/ [place] NA 1% 2-4 L INUE 0 ION E 2019 N [place] GEL,TOP GRAMS CLINIC DIRECTED TO AFFECTED AREA FOUR TIMES A DAY NEEDED FOR PAIN * LIMIT DAILY DOSE TO 8 GRAMS TO UPPER BODY AND 16 GRAMS TO LOWER BODY Diclofenac APPLY Active 12/05/2021 [id number] RADHA, / [place] Sodium 2-4 1 CHARISSE2020 [place] 0.01mg/mg, GRAMS [facility] Gel/Jelly, DIRECTED Topical TO AFFECTED AREA FOUR TIMES A DAY NEEDED FOR PAIN * LIMIT DAILY DOSE TO 8 GRAMS TO UPPER BODY AND 16 GRAMS TO LOWER BODY duloxetine
60 Oral Ordered Ambul at mg, (given ory Oral, by Pharmac every mouth) y day at bedtime, TAKE ONE CAPSULE BY MOUTH AT BEDTIME FOR NERVE PAIN, 0 total refill(s ) duloxetine
60 Oral Discont 12/09/2019 Ambulat mg, (given inued ory Oral, by Pharmac every mouth) y day at bedtime, TAKE ONE CAPSULE BY MOUTH AT BEDTIME FOR PAIN, 0 total refill(s ), Physicia n Stop DULoxetine TAKE ONE 08/12/2021 [id number] RADHA , 06/05/ [place] 60 MG ORAL CAPSULE 1 CHARISSE E 2020 [place] CPDR BY MOUTH [facility] AT BEDTIME FOR NERVE PAIN DULOXETINE TAKE ONE ORAL ACTIVE 08/12/2021 [id number] GARCIA ,NOV 26/ [place] HCL 60MG CAPSULE 1 ION E 2019 N [place] CAP,EC BY MOUTH CLINIC AT BEDTIME FOR NERVE PAIN empaglifloz
12. Oral Discont 02/27/2020 Ambulat in 5 mg, (given inued ory Oral, by Pharmac every mouth) y morning, TAKE ONE-HALF TABLET BY MOUTH EVERY MORNING FOR DIABETES , 0 total refill(s ), Physicia n Stop Etodolac
500 Oral Ordered Ambula t mg, (given ory Oral, by Pharmac BID, mouth) y TAKE ONE TABLET BY MOUTH TWICE A DAY FOR PAIN TAKE WITH FOOD, 0 total refill(s ) Etodolac
500 Oral Discont 09/01/2019 A mbulat mg, (given inued ory Oral, by Pharmac BID, mouth) y TAKE ONE TABLET BY MOUTH TWICE A DAY FOR PAIN TAKE WITH FOOD, 0 total refill(s ), Physicia n Stop ETODOLAC TAKE ONE 08/12/2021 [id number] RADHA, 06/05/ [place] 500 MG ORAL TABLET 1 CHARISSE E 2020 [place] TAB BY MOUTH [facility] TWICE A DAY FOR PAIN TAKE WITH FOOD ETODOLAC TAKE ONE Discont 09/01/2020 [id number] RADHA, 08/14/ [place] 500 MG ORAL TABLET inued 0 CHARISSE E 2019 [place] TAB BY MOUTH [facility] TWICE A DAY FOR PAIN TAKE WITH FOOD ETODOLAC TAKE ONE ORAL DISCONT 09/01/2020 [id number] RADHA, NOV 16/ [place] 500MG TAB TABLET INUE 0 ION E 2019 N [facility] TWICE A DAY FOR PAIN TAKE WITH FOOD ETODOLAC TAKE ONE ORAL 08/12/2021 [id number] RADHA, NOV 16/ [place] 500MG TAB TABLET 1 ION E 2020 N [facility] TWICE A DAY FOR PAIN TAKE WITH FOOD Fluconazole
150 Oral Discont 05/02/2018 Ambulat mg, (given inued ory Oral, by Pharmac every 3 mouth) y day, TAKE ONE TABLET BY MOUTH EVERY 72 HOURS NEEDED FOR INFECTIO N TAKE UNTIL YEAST IS RESOLVED ., 0 total refill(s ), Physicia n Stop Fluconazole
150 Oral Ordered Amb ulat mg, (given ory Oral, by Pharmac every 3 mouth) y day, TAKE ONE TABLET BY MOUTH EVERY 72 HOURS NEEDED FOR YEAST INFECTIO N. INCREASE YOGURT OR ACIDOPHY LIS/PROB IOTIC USE, 0 total refill(s ) fluconazole TAKE ONE 02/22/2021 [id number] MARTHA H, 02/23/ [place] (U/D) 150 TABLET 0 CHARISSE 2020 [place] MG ORAL TAB BY MOUTH [facility] EVERY 72 HOURS NEEDED FOR YEAST INFECTIO N. INCREASE YOGURT OR ACIDOPHY LIS/PROB IOTIC USE FLUCONAZOLE TAKE ONE ORAL 02/22/2021 [id number] S MITH,MAR 02/23/ [place] 150MG TAB TABLET 0 ION E 2019 N [facility] EVERY 72 HOURS NEEDED FOR YEAST INFECTIO N. INCREASE YOGURT OR ACIDOPHY LIS/PROB IOTIC USE Fluoxetine
60 Oral Discont 03/14/2018 Ambulat mg, (given inued ory Oral, by Pharmac every mouth) y morning, TAKE THREE CAPSULES BY MOUTH EVERY MORNING, 0 total refill(s ), Physicia n Stop Fluoxetine
80 Oral Complet 07/16/2020 Ambulat mg, (given ed ory Oral, by Pharmac every mouth) y morning, TAKE FOUR CAPSULES BY MOUTH EVERY MORNING FOR DEPRESSI ON / MOOD, 0 total refill(s ) Fluoxetine
80 Oral Ordered Ambul at mg, (given ory Oral, by Pharmac every mouth) y morning, TAKE FOUR CAPSULES BY MOUTH EVERY MORNING FOR DEPRESSI ON/MOOD, 0 total refill(s ) Fluoxetine TAKE Active 02/19/2022 [id number] HARRY, / [place] (Prozac) FOUR 1 ADIEL M 2020 [place] Capsule CAPSULES [facility] [place] BY MOUTH l 20 mg EVERY Oral MORNING FOR DEPRESSI ON/MOOD Fluoxetine TAKE Discont 03/10/2021 [id number] GARCIA, 0 [place] (Prozac) FOUR inued 1 CHARISSE E 2020 [place] Capsule CAPSULES [facility] [place] BY MOUTH l 20 mg EVERY Oral MORNING FOR DEPRESSI ON/MOOD FLUOXETINE TAKE ORAL ACTIVE 02/19/2022 [id number] HARRY,CH A 03/16/ [place] HCL 20MG FOUR 1 D M 2020 N [facility] CAP CAPSULES CLINIC BY MOUTH EVERY MORNING FOR DEPRESSI ON/MOOD FLUOXETINE TAKE ORAL DISCONT 03/10/2021 [id number] ARMIDA GARCIA 03/10/ [place] HCL 20MG FOUR INUE 1 ION E 2019 N [facility] CAP CAPSULES CLINIC BY MOUTH EVERY MORNING FOR DEPRESSI ON/MOOD gabapentin
600 Oral Discont 01/11/2019 Ambulat mg, (given inued ory Oral, by Pharmac BID, mouth) y TAKE TWO CAPSULES BY MOUTH TWICE A DAY FOR NERVE PAIN NEEDED, 0 total refill(s ), Physicia n Stop gabapentin
600 Oral Ordered Ambu lat mg, (given ory Oral, by Pharmac TID, mouth) y TAKE TWO CAPSULES BY MOUTH THREE TIMES A DAY NEEDED FOR NERVE PAIN, 0 total refill(s ) GABAPENTIN TAKE TWO Active 02/24/2022 [id number] RADHA 07/15/ [place] (U/D) 300 CAPSULES 1 2020 [place] MG ORAL CAP BY MOUTH [facility] THREE TIMES A DAY NEEDED FOR NERVE PAIN GABAPENTIN TAKE TWO Discont 03/10/2021 [id number] RADHA 02/24/ [place] (U/D) 300 CAPSULES inued 1 2020 [place] MG ORAL CAP BY MOUTH [facility] THREE TIMES A DAY NEEDED FOR NERVE PAIN GABAPENTIN TAKE TWO ORAL ACTIVE 02/24/2022 [id number] YAW GARCIA 02/24/ [place] 300MG CAP CAPSULES 1 ION 2020 N [facility] THREE TIMES A DAY NEEDED FOR NERVE PAIN GABAPENTIN TAKE TWO ORAL DISCONT 03/10/2021 [id number] YAW JIMENEZ 03/10/ [place] 300MG CAP CAPSULES INUE 1 ION E 2019 N [facility] THREE TIMES A DAY NEEDED FOR NERVE PAIN GLUCOSE 4GM CHEW ORAL ACTIVE 08/26/2022 [id number] Michelle MARLOW 08/26/ [place] TAB,CHEW FOUR 1 NNY A 2020 N [facility] TABLETS CLINIC BY MOUTH ONCE NEEDED FOR LOW BLOOD SUGARS. WAIT 15 MINUTES AND REPEAT IF STILL HAVING SYMPTOMS . Guaifenesin
600 Oral Ordered Amb ulat mg, (given ory Oral, by Pharmac BID, mouth) y TAKE ONE TABLET BY MOUTH TWICE A DAY FOR CONGESTI ON, 0 total refill(s ) Guaifenesin
600 Oral Discont 09/12/2018 Ambulat mg, (given inued ory Oral, by Pharmac BID, mouth) y TAKE ONE TABLET BY MOUTH TWICE A DAY NEEDED FOR SINUSITI S, 0 total refill(s ), Physicia n Stop Guaifenesin
600 Oral Complet 07/16/2020 Ambulat mg, (given ed ory Oral, by Pharmac BID, mouth) y TAKE ONE TABLET BY MOUTH TWICE A DAY FOR CONGESTI ON, 0 total refill(s ) GUAIFENESIN TAKE ONE ORAL ACTIVE 02/24/2022 [id number] S MIT,NOV 23/ [place] 600MG TABLET 1 ION E 2020 N [facility] TAB,SA BY MOUTH CLINIC TWICE A DAY FOR CONGESTI ON GUAIFENESIN TAKE ONE ORAL DISCONT 12/05/2021 [id number] GARCIA,NOV 21/ [place] 600MG TABLET INUE 1 ION E 2020 N [facility] TAB,SA BY MOUTH CLINIC TWICE A DAY FOR CONGESTI ON GUAIFENESIN TAKE ONE ORAL DISCONT 03/10/2021 [id number] S MIT,NOV 21/ [place] 600MG TABLET INUE 1 ION E 2019 N [facility] TAB,SA BY MOUTH CLINIC TWICE A DAY FOR CONGESTI ON Guaifenesin TAKE ONE Active 02/24/2022 [id number] GARCIA , 05/11/ [place] 600mg, 12 TABLET 1 2020 [place] hour BY MOUTH [facility] Extended TWICE A Release DAY FOR Tablet CONGESTI ON Guaifenesin TAKE ONE Discont 12/05/2021 [id number] MARTHA H, 02/24/ [place] 600mg, 12 TABLET inued 1 2020 [place] hour BY MOUTH [facility] Extended TWICE A Release DAY FOR Tablet CONGESTI ON Guaifenesin TAKE ONE Active 12/05/2021 [id number] GARCIA , 12/07/ [place] 600mg, 12 TABLET 1 CHARISSE 2020 [place] hour BY MOUTH [facility] Extended TWICE A Release DAY FOR Tablet CONGESTI ON Guaifenesin TAKE ONE Discont 03/10/2021 [id number] MARTHA H, 12/07/ [place] 600mg, 12 TABLET inued 1 2020 [place] hour BY MOUTH [facility] Extended TWICE A Release DAY FOR Tablet CONGESTI ON Hydrocortis
CADEN Discont 01/10/2018 Ambulat one / C, QID, inued ory Neomycin / INSTILL Pharmac Polymyxin B 2 DROPS y IN EAR(S) FOUR TIMES A DAY FOR EAR INFECTIO N, 0 total refill(s ), Physicia n Stop ICAPS MV TAKE 1 ORAL ACTIVE 12/13/2021 [id number] RADHA,NOV 18/ [place] TAB,EC CAPSULE 1 ION E 2020 N [facility] EVERY MORNING FOR VITAMIN SUPPLEME NT Insulin INJECT Active 09/28/2021 [id number] RADHA, 2/ [place] Aspart 15 UNITS 1 2020 [place] 100U/mL, UNDER [facility] Injection, SKIN AT 3mL Pen NOON FOR Injector DIABETES . TAKE 10 MINUTES PRIOR TO YOUR LUNCH. Insulin
Sub SubCut Discont 04/25/2018 A mbulat Glargine Cutaneou aneous inued ory s, every (under Pharmac day at the y bedtime, skin) INJECT 55 UNITS UNDER SKIN AT BEDTIME OR DIRECTED BY CLINICAL PHARMACI ST, 0 total refill(s ), Physicia n Stop INSULIN
BID Discont 12/21/2018 Am bulat SYRINGE 1ML , USE 1 inued ory 31G 8MM SYRINGE Pharmac TWICE A y DAY FOR INSULIN INJECTIO NS (DISPOSE OF PROPERLY ), 0 total refill(s ), Physicia n Stop Insulin,
Sub SubCut Discont 07/17/2019 Ambulat Aspart Cutaneou aneous inued ory Protamine, s, BID (under Pharmac Human / w/Meals, the y Insulin, INJECT skin) Aspart, 60 UNITS Human UNDER SKIN TWICE A DAY WITH MEALS OR DIRECTED BY CLINICAL PHARMACI ST FOR DIABETES , 0 total refill(s ), Physicia n Stop Insulin,
Sub SubCut Ordered Ambul at Aspart Cutaneou aneous ory Protamine, s, BID (under Pharmac Human / w/Meals, the y Insulin, INJECT skin) Aspart, 60 UNITS Human UNDER SKIN TWICE A DAY WITH MEALS OR DIRECTED BY CLINICAL PHARMACI ST FOR DIABETES , 0 total refill(s ) Insulin,
Sub SubCut Complet 12/03/2020 Ambulat Aspart Cutaneou aneous ed ory Protamine, s, BID (under Pharmac Human / w/Meals, the y Insulin, INJECT skin) Aspart, 60 UNITS Human UNDER SKIN TWICE A DAY WITH MEALS OR DIRECTED BY CLINICAL PHARMACI ST FOR DIABETES , 0 total refill(s ) Insulin,
Sub SubCut Discont 05/17/2018 Ambulat Aspart, Cutaneou aneous inued ory Human s, (under Pharmac TID(AC), the y INJECT skin) 35 UNITS UNDER SKIN THREE TIMES A DAY BEFORE MEALS FOR DIABETES OR DIRECTED BY CLINICAL PHARMACI ST, 0 total refill(s ), Physicia n Stop Insulin,
Sub SubCut Ordered Ambul at Aspart, Cutaneou aneous ory Human s, (under Pharmac Daily, the y INJECT skin) 15 UNITS UNDER SKIN AT NOON FOR DIABETES . TAKE 10 MINUTES PRIOR TO YOUR LUNCH., 0 total refill(s ) INSULIN,ASP INJECT SUBCUT DISCONT 09/28/2021 [id number] [facility],NOV 18/ [place] ART,HUMAN 15 UNITS ANEOUS INUED 1 ION E 2020 N [facility] 100U/ML,NOV UNDER CLINIC OLOG,FLEXPE SKIN AT N,3ML NOON FOR DIABETES . TAKE 10 MINUTES PRIOR TO YOUR LUNCH. INSULIN,ASP INJECT SUBCUT DISCONT 01/22/2021 [id number] [facility],NOV 21/ [place] ART,HUMAN 15 UNITS ANEOUS INUE 0 ION E 2020 N [facility] 100U/ML,NOV UNDER CLINIC OLOG,FLEXPE SKIN AT N,3ML NOON FOR DIABETES . TAKE 10 MINUTES PRIOR TO YOUR LUNCH. INSULIN,ASP INJECT SUBCUT ACTIVE 09/28/2021 [id number] [facility],NOV 16/ [place] ART,HUMAN 60 UNITS ANEOUS 1 ION E 2020 N [facility] 70/30 UNDER CLINIC INJ,NOVOLOG SKIN ,FLEXPEN,3M TWICE A L DAY WITH MEALS OR DIRECTED BY CLINICAL PHARMACI ST FOR DIABETES INSULIN,ASP INJECT SUBCUT DISCONT 01/22/2021 [id number] [facility],NOV 20/ [place] ART,HUMAN 60 UNITS ANEOUS INUE 0 ION E 2020 N [facility] 70/30 UNDER CLINIC INJ,NOVOLOG SKIN ,FLEXPEN,3M TWICE A L DAY WITH MEALS OR DIRECTED BY CLINICAL PHARMACI ST FOR DIABETES Isopropyl
Top Topica Discont 01/11/2019 Ambulat Alcohol ical, As l (on inued ory Directed the Pharmac , USE skin) y PAD TO AFFECTED AREA DIRECTED , 0 total refill(s ), Physicia n Stop Isopropyl
Top Topica Complet 07/16/2020 Ambulat Alcohol ical, As l (on ed ory Directed the Pharmac , USE skin) y PAD TO AFFECTED AREA DIRECTED FOR FINGER STICKS, 0 total refill(s ) Ketorolac
Int IntraM Complet 07/16/2020 Ambulat raMuscul uscula ed ory ar r (in Pharmac INJECT a y 60MG muscle (2ML) ) INTRAMUS CULARLY NOW, 0 total refill(s ) Lidocaine
Tra TransD Ordered Ambu lat nsDermal ermal ory , Daily, (apply Pharmac APPLY 1 on the y PATCH TO skin) SKIN EVERY DAY (FOR 12 HOURS ON, FOLLOWED BY 12 HOURS OFF) FOR PAIN, 0 total refill(s ) Lidocaine
Tra TransD Complet 07/16/2020 Ambulat nsDermal ermal ed ory , Daily, (apply Pharmac APPLY 1 on the y PATCH TO skin) SKIN EVERY DAY (FOR 12 HOURS ON, FOLLOWED BY 12 HOURS OFF) FOR PAIN, 0 total refill(s ) liraglutide
Sub SubCut Discont 01/17/2017 Ambulat Cutaneou aneous inued ory s, (under Pharmac Daily, the y INJECT skin) 0.6MG/0. 1ML UNDER SKIN EVERY DAY FOR 1 WEEK; THEN INCREASE TO 1.2 MG ONCE DAILY, 0 total refill(s ), Physicia n Stop Loratadine
10 Oral Complet 07/16/2020 Ambulat mg, (given ed ory Oral, by Pharmac Daily, mouth) y TAKE ONE TABLET BY MOUTH EVERY DAY FOR ALLERGIE S, 0 total refill(s ) Loratadine
10 Oral Ordered Ambul at mg, (given ory Oral, by Pharmac Daily, mouth) y TAKE ONE TABLET BY MOUTH EVERY DAY FOR ALLERGIE S, 0 total refill(s ) Loratadine TAKE ONE Active 02/24/2022 [id number] RADHA, 05/11/ [place] ([place] TABLET 1 CHARISSE E 2020 [place] ODT) Tablet BY MOUTH [facility] 10 mg Oral EVERY DAY FOR ALLERGIE S Loratadine TAKE ONE Discont 09/28/2021 [id number] GARCIA , [place] ([place] TABLET inued 1 CHARISSE E 2020 [place] ODT) Tablet BY MOUTH [facility] 10 mg Oral EVERY DAY FOR ALLERGIE S Loratadine TAKE ONE Discont 11/12/2020 [id number] RADHA , [place] ([place] TABLET inued 0 E 2020 [place] ODT) Tablet BY MOUTH [facility] 10 mg Oral EVERY DAY FOR ALLERGIE S LORATADINE TAKE ONE ORAL ACTIVE 02/24/2022 [id number] RADHA ,NOV 22/ [place] 10MG TAB TABLET 1 ION E 2020 N [facility]INIC EVERY DAY FOR ALLERGIE S LORATADINE TAKE ONE ORAL DISCONT 09/28/2021 [id number] [facility],NOV 17/ [place] 10MG TAB TABLET INUE 1 ION E 2020 N [facility] BY [facility]OUTH CLINIC EVERY DAY FOR ALLERGIE S LORATADINE TAKE ONE ORAL DISCONT 11/12/2020 [id number] GARCIA ,NOV 17/ [place] 10MG TAB TABLET INUE 0 ION E 2019 N [facility] EVERY DAY FOR ALLERGIE S Medroxyprog
Int IntraM Discont 05/06/2019 Ambulat esterone raMuscul uscula inued ory ar, r (in Pharmac every 3 a y mo, muscle INJECT ) 150MG (1 SYRINGE) INTRAMUS CULARLY EVERY 3 MONTHS FOR CONTRACE PTIVE MAIL TO CLINIC FOR SEPT INJECTIO N, 0 total refill(s ), Physicia n Stop Medroxyprog
Int IntraM Complet 12/03/2020 Ambulat esterone raMuscul uscula ed ory ar, r (in Pharmac every 3 a y mo, muscle INJECT ) 150MG (1 SYRINGE) INTRAMUS CULARLY EVERY 3 MONTHS FOR CONTRACE PTIVE, 0 total refill(s ) Methocarbam
750 Oral Discont 01/10/2018 Ambulat ol mg, (given inued ory Oral, by Pharmac TID, mouth) y TAKE ONE TABLET BY MOUTH THREE TIMES A DAY NEEDED FOR MUSCLE SPASMS, 0 total refill(s ), Physicia n Stop MULTIVITAMI TAKE ORAL ACTIVE MELDER,PE 05/02/ [place] N NATURE NNY 2017 N [facility] W/MINERALS MADE CLINIC DAILY CAP/TAB DIABETES HEALTH PACK BY MOUTH EVERY DAY MULTIVITAMI
Ora Oral Complet 07/16/2020 Ambulat N, ICAPS MV l, every (given ed ory TAB,EC morning, by Pharmac TAKE 1 mouth) y CAPSULE BY MOUTH EVERY MORNING FOR VITAMIN SUPPLEME NT, 0 total refill(s ) MULTIVITAMI
Ora Oral Discont 01/10/2018 Ambulat N, ICAPS MV l, every (given inued ory TAB,EC morning, by Pharmac TAKE 1 mouth) y CAPSULE BY MOUTH EVERY MORNING FOR VITAMIN SUPPLEME NT, 0 total refill(s ), Physicia n Stop Naloxone
MARCELO Complet 12/03/2020 A mbulat AL, ed ory Daily, Pharmac SPRAY y ONE DOSE IN NOSE EVERY DAY NEEDED FOR ACCIDENT AL OPIOID (PAIN MEDICATI ON) OVERDOSE , MAY REPEAT IN OTHER NOSTRIL IN 3-5 MINUTES IF NEEDED, CALL 911, 0 total refill(s ) NALOXONE SPRAY NASAL ACTIVE 03/17/2022 [id number] MELDER,PE 0 03/16/ [place] HCL ONE DOSE 1 NN2020 N [facility] 4MG/SPRAY IN NOSE CLINIC SOLN,SPRAY, UD NASAL NEEDED FOR ACCIDENT AL OPIOID (PAIN MEDICATI ON) OVERDOSE , MAY REPEAT IN OTHER NOSTRIL IN 3-5 MINUTES IF NEEDED, CALL 911 Naloxone SPRAY Active 03/17/2022 [id number] MELDER, / [place] Hydrochlori ONE DOSE 1 JAIDEN 2020 [place] 40 MG/ML IN NOSE [facility] [place], Nasal DIRECTED NEEDED FOR ACCIDENT AL OPIOID (PAIN MEDICATI ON) OVERDOSE , MAY REPEAT IN OTHER NOSTRIL IN 3-5 MINUTES IF NEEDED, CALL 911 Naproxen
500 Oral Discont 04/25/2018 A mbulat mg, (given inued ory Oral, by Pharmac BID, mouth) y TAKE ONE TABLET BY MOUTH TWICE A DAY NEEDED FOR PAIN TAKE WITH FOOD, 0 total refill(s ), Physicia n Stop NEEDLE,PEN
MIS Discont 12/21/2018 Ambulat 31G,8MM CELLANEO inued ory US, As Pharmac Directed y , USE NEEDLE DIRECTED NEEDED FOR USE WITH INSULIN PENS, 0 total refill(s ), Physicia n Stop NEEDLE,PEN
MIS Complet 07/16/2020 Ambulat 31G,8MM CELLANEO ed ory US, USE Pharmac NEEDLE y DIRECTED NEEDED FOR USE WITH INSULIN PEN INJECTIO NS, 0 total refill(s ) NEEDLE,PEN
MIS Ordered Ambu lat 31G,8MM CELLANEO ory US, USE Pharmac NEEDLE y DIRECTED NEEDED FOR USE WITH INSULIN PEN INJECTIO NS, 0 total refill(s ) NO NON-VA USE MISCEL ACTIVE MELDER,PE 05/02/ [place] MEDICATION VITAMIN LANEOU NNY A 2017 N [facility] MISCELLANEO C, E, S CLINIC US AND BIOTIN (HAIR SKIN AND NAILS VITAMIN) EVERY DAY NPH
Sub SubCut Discont 12/21/2018 Amb ulat Insulin, Cutaneou aneous inued ory Human / s, (under Pharmac Regular INJECT the y Insulin, 45 UNITS skin) Human SUBCUTAN EOUSLY (UNDER SKIN) EVERY MORNING BEFORE BREAKFAS T AND INJECT 35 UNITS EVERY EVENING BEFORE MEALS OR DIRECTED BY CLINICAL PHARMACI ST FOR DIABETES , 0 total refill(s ), Physicia n Stop oxybutynin
5 Oral Complet 07/16/2020 A mbulat mg, (given ed ory Oral, by Pharmac Daily, mouth) y TAKE ONE TABLET BY MOUTH EVERY DAY FOR URINARY INCONTIN ENCE, 0 total refill(s ) oxybutynin
5 Oral Ordered Ambula t mg, (given ory Oral, by Pharmac Daily, mouth) y TAKE ONE TABLET BY MOUTH EVERY DAY FOR URINARY INCONTIN ENCE, 0 total refill(s ) oxybutynin TAKE ONE Discont 09/28/2021 [id number] RADHA , 02/24/ [place] (U/D) 5 MG TABLET inued 1 2020 [place] ORAL TAB BY MOUTH [facility] EVERY DAY FOR URINARY INCONTIN ENCE OXYBUTYNIN TAKE ONE ORAL DISCONT 09/28/2021 [id number] S KAYLENE,NOV 16/ [place] CL 5MG TAB TABLET INUED 1 ION E 2020 N [facility] BY MOUTH CLINIC EVERY DAY FOR URINARY INCONTIN ENCE PREDNISONE TAKE TWO ORAL ACTIVE GARCIA,NOV 21/ [place] 20MG TAB TABLETS ION E 2020 N [facility] BY [facility]TH CLINIC EVERY DAY PREDNISONE TAKE TWO ORAL ACTIVE GARCIA,NOV 21/ [place] 20MG TAB TABLETS ION E 2020 N [facility] BY [facility]TH [facility]INIC EVERY DAY Propranolol
40 Oral Complet 07/16/2020 Ambulat mg, (given ed ory Oral, by Pharmac Daily, mouth) y TAKE ONE TABLET BY MOUTH EVERY DAY, 0 total refill(s ) Propranolol
40 Oral Ordered Ambu lat mg, (given ory Oral, by Pharmac Daily, mouth) y TAKE ONE TABLET BY MOUTH EVERY DAY TO PREVENT MIGRAINE S * NOTIFY PROVIDER IF OR MAY BECOME , 0 total refill(s ) PROPRANOLOL TAKE ONE ORAL ACTIVE 02/24/2022 [id number] [facility] 23/ [place] HCL 40MG TABLET 1 ION E 2020 N [facility] TAB BY MOUTH CLINIC EVERY DAY TO PREVENT MIGRAINE S * NOTIFY PROVIDER IF OR MAY BECOME PROPRANOLOL TAKE ONE ORAL DISCONT 06/01/2021 [id number] S KAYLENE,NOV 24/ [place] HCL 40MG TABLET INUE 1 ION E 2019 N [facility] TAB BY MOUTH CLINIC EVERY DAY TO PREVENT MIGRAINE S * NOTIFY PROVIDER IF OR MAY BECOME Propranolol TAKE ONE Active 02/24/2022 [id number] RADHA , 05/11/ [place] Hydrochlori TABLET 1 2020 [place] de BY MOUTH [facility] (Inderal) EVERY Tablet 40 DAY TO mg Oral PREVENT MIGRAINE S * NOTIFY PROVIDER IF OR MAY BECOME Propranolol TAKE ONE Discont 06/01/2021 [id number] MARTHA H, 02/24/ [place] Hydrochlori TABLET inued 1 2020 [place] de BY MOUTH [facility] (Inderal) EVERY Tablet 40 DAY TO mg Oral PREVENT MIGRAINE S * NOTIFY PROVIDER IF OR MAY BECOME ROSUVASTATI TAKE ONE ORAL ACTIVE 02/24/2022 [id number] YAW GARCIA 02/24/ [place] 20MG TABLET 1 ION E 2020 N [facility] TAB BY MOUTH CLINIC EVERY DAY FOR CHOLESTE ROL SEMAGLUTIDE INJECT SUBCUT 09/17/2021 [id number] GAYATRI ELIAN,PE ALTONNATHA 0.5MG/0.375 0.25MG/0 ANEOUS 1 NNY A 2020 N M. ML .187ML WAINWRI INJ,SOLN,PE UNDER GHT N,1.5ML SKIN [facility] WEEKLY X 4 WEEKS AND THEN INCREASE TO 0.5 MG WEEKLY TABLET
MIS Complet 07/16/2020 Amb ulat CUTTER CELLANEO ed ory US, Pharmac Daily, y USE TABLET SPLITTER EVERY DAY, 0 total refill(s ) TAKE AWAY
MIS Complet 12/03/2020 Ambulat BAG CELLANEO ed ory US, As Pharmac Directed y , USE 1 BAG DIRECTED TO DISPOSE OF MEDICATI ON, 0 total refill(s ) tizanidine
Ora Oral Ordered Ambu lat l, TAKE (given ory 1 TO 2 by Pharmac TABLETS mouth) y (4-8MG) BY MOUTH UP TO THREE TIMES A DAY FOR MUSCLE SPASM, 0 total refill(s ) tizanidine
Ora Oral Discont 09/01/2019 Ambulat l, TAKE (given inued ory 1 TO 2 by Pharmac TABLETS mouth) y (4-8MG) BY MOUTH UP TO THREE TIMES A DAY FOR MUSCLE SPASM, 0 total refill(s ), Physicia n Stop tiZANidine TAKE 1 Active 02/24/2022 [id number] RADHA, 0 06/05/ [place] 4 MG ORAL TO 2 1 CHARISSE E 2020 [place] TAB TABLETS [facility] (4-8MG) BY MOUTH UP TO THREE TIMES A DAY FOR MUSCLE SPASM tiZANidine TAKE 1 Discont 08/12/2021 [id number] RADHA, 02/24/ [place] 4 MG ORAL TO 2 inued 1 CHARISSE E 2020 [place] TAB TABLETS [facility] (4-8MG) BY MOUTH UP TO THREE TIMES A DAY FOR MUSCLE SPASM TIZANIDINE TAKE 1 ORAL ACTIVE 02/24/2022 [id number] Marlen GARCIA 03/01/ [place] HCL 4MG TAB TO 2 1 ION E 2020 N [place] TABLETS CLINIC (4-8MG) BY MOUTH UP TO THREE TIMES A DAY FOR MUSCLE SPASM TIZANIDINE TAKE 1 ORAL DISCONT 08/12/2021 [id number] GARCIA, YAW 09/12/ [place] HCL 4MG TAB TO 2 INUE 1 ION E 2019 N [place] TABLETS CLINIC (4-8MG) BY MOUTH UP TO THREE TIMES A DAY FOR MUSCLE SPASM varenicline
Ora Oral Discont 09/01/2019 Ambulat l, As (given inued ory Directed by Pharmac , TAKE 1 mouth) y TABLET BY MOUTH DIRECTED FOR TOBACCO CESSATIO N PER PACKAGE INSTRUCT IONS, 0 total refill(s ), Physicia n Stop VARENICLINE TAKE ONE ORAL ACTIVE 05/16/2022 [id number] RADHA ,YAW 05/17/ [place] 1MG TAB TABLET 1 ION E 2020 N [facility] BY MOUTH CLINIC TWICE A DAY FOR TOBACCO CESSATIO N VARENICLINE TAKE ONE ORAL DISCONT 08/18/2021 [id number] [facility] 08/18/ [place] 1MG TAB TABLET INUE 0 ION E 2019 N [facility] BY MOUTH CLINIC TWICE A DAY FOR TOBACCO CESSATIO N ZZ
MIS Complet 07/16/2020 Ambu lat ACCU-CHEK CELLANEO ed ory *PEE* US, As Pharmac SOLN, Directed y CONTROL , USE 1 DROP NEEDED TO CHECK METER, 0 total refill(s ) ZZ
MIS Complet 07/16/2020 Ambu lat ACCU-CHEK CELLANEO ed ory PEE US, TID, Pharmac PLUS(GLU) USE 1 y TEST STRIP STRIP THREE TIMES A DAY FOR BLOOD GLUCOSE TESTING (LIMITED TO 50 STRIPS/9 0 DAYS FOR NON-INSU BRI DEPENDEN T DIABETIC S), 0 total refill(s ) [id number]
MIS Discont 06/07/2018 Am bulat FINE 30 CELLANEO inued ory DISPOSABLE US, USE Pharmac NEEDLE 1 NEEDLE y DIRECTED NEEDED FOR USE WITH INSULIN PEN INJECTIO NS, 0 total refill(s ), Physicia n Stop Allergies, Adverse Reactions, Alerts Combined list of allergies from Department of Defense and Veterans Affairs facilities. It does not include entries that were removed or entered in error. Substance Category Reaction Severity Reaction Status Date Comments S ource type Reported CODEINE Propensity DROWSINESS Propensity active [place] to adverse , to adverse 3 [facility] reactions CONFUSION reactions to drug to drug (finding) (finding) CODEINE Propensity Delirium, Propensity active [place] to adverse Drowsy to adverse 9 [facility] reactions reactions MEDI ERLINDA to drug to drug [facility] (finding) (finding) codeine Drug Clouded <not Drug Active Ambulato allergy consciousn entered> allergy ry ess Pharmacy (finding), Drowsy (finding), Drowsy (finding), Delirium (disorder) EMPAGLIFLOZI Drug Urinary Drug active W ananda N allergy tract allergy 1 [place] infection [facility] EMPAGLIFLOZI Propensity Urinary Propensity active MATIAS N to adverse tract to adverse 1 M. reactions infectious reactions W AINWRIG to drug disease to drug [facility] (finding) (finding) GLIPIZIDE Propensity Visual Propensity active MATIAS to adverse disturbanc to adverse 0 M. reactions e reactions WAIN WRIG to drug to drug [facility] (finding) (finding) glipiZIDE Drug Visual <not Drug Active increased Ambu lato allergy disturbanc entered> allergy 'twitching r y e ' of the Pharmac y (disorder) eyes, blurry vision not
assoc iated c/ hypos (per pt) METFORMIN Propensity Propensity active MATIAS to adverse to adverse 4 M. reactions reactions WAIN WRIG to drug to drug [facility] (finding) (finding) metFORMIN Drug <not Drug Active C/O Ambula to allergy entered> allergy Headaches, ry refuses to Pharm acy take unknown if true allergy Immunizations Combined list of available immunizations from the Department of Defense and Veterans Affairs facilities. Immunization Series Date Administered Site Reaction Lot CVX Drug St atus Comments Source Given By Number Code Admin Assistant [id number] Not [place] IMM REFUSAL - 2020 Given N [facility] JSN CVX 212 CL [facility] [id number] Not [place] IMM REFUSAL - 2020 Given N [facility] MOD [id number] Not [place] IMM REFUSAL - 2020 Given N [facility] UNS CVX 213 CL IN[facility] [id number]-2 Not [place] VACCINE 2020 Given N [facility] REF[facility] INFLUENZA, complet [place] INJECTABLE, 2018 ed N [facility] QUADRIVALENT C LINIC influenza, complet influe nza [facility] injectable, 2018 ed , or y quadrivalent injecta bl Pharmac e, y quadrival ent INFLUENZA, complet [place] SEASONAL, 2015 ed N [facility] INJECTABLE, [facility] PRESERVATIVE FREE influenza, complet influe nza [facility] seasonal, 2015 ed , ory injectable-pf season al, Pharmac injectabl y e-pf PNEUMOCOCCAL complet [place] POLYSACCHARID 2015 ed N [facility] E PPV23 CLINIC pneumococcal complet pneu mococ Ambulat polysaccharid 2015 ed erlinda ory e, 23 valent polysac ch Pharmac aride, 23 y valent INFLUENZA, complet [place] SEASONAL, 2014 ed N [facility] INJECTABLE, [facility] PRESERVATIVE FREE influenza, complet influe nza Ambulat seasonal, 2014 ed , ory injectable-pf season al, Pharmac injectabl y e-pf INFLUENZA, complet [place] SEASONAL, 2013 ed N [facility] INJECTABLE, [facility] PRESERVATIVE FREE influenza, complet influe nza Ambulat seasonal, 2013 ed , ory injectable-pf season al, Pharmac injectabl y e-pf INFLUENZA, complet [place] UNSPECIFIED 2009 ed [facility] influenza complet influen za Ambul[facility] virus 2009 ed virus ory vaccine, vaccine, Ph armac inactivated inactiva t y ed Td(adult) complet Result [facility] unspecified 1996 ed Comment: ory formulation Pharmac clinic y TD(ADULT) complet militar y [place] UNSPECIFIED 1996 ed clinic [facility] FORMULATION Results Combined list of recent chemistry, hematology and other laboratory results from [facility] and [facility], ranging from 15 months to all on record, depending upon the facility. Order Results Value Reference Date Interpretation Specimen Commen ts Source Name Range MICROALB CREATININE 81.1 29 - 226 08/06 Specimen ALTON GARRISON UMIN/CRE [MASS/VOLU mg/dL /2020 Type: Dilma BHATIAE ME] IN URINE
WAINW RIGH PANEL URINE Comment: [facility] CREATININE, URINE reference ranges apply to first morning void.
Ordering Provider: TERE GARCIA
Report Released Date/Time: May 19, 2021 08:12 PM
Reporting Lab: MATIAS MarlenBianka [facility]
[address] [place] [phone]< br/> Performing Lab: MATIAS MarlenBianka [facility]
[address] [place] [phone]< br/> MICROALB MICROALBUM <1.2mg/d 08/06 Specimen ALTON GARRISON UMIN/CRE IN L /2020 Type: Dilma BHATIAE [MASS/VOLU URINE
WA INWRIGH PANEL ME] IN Comment: [facility] URINE CREATININE, URINE reference ranges apply to first morning void.
Ordering Provider: TERE GARCIA
Report Released Date/Time: May 19, 2021 08:12 PM
Reporting Lab: MATIAS Perera [facility]
[address] [place] [phone]< br/> Performing Lab: MATIAS MarlenBianka [facility]
[address] [place] [phone]< br/> MICROALB MICROALBUM <14.8mg/ 0 - 30 08/06 Specimen ALTON GARRISON UMIN/CRE IN/CREATIN gCR /2020 Type: Dilma BHATIAE INE [MASS URINE
MIA NWRIG PANEL RATIO] IN Comment: T [facility] URINE CREATININE, URINE reference ranges apply to first morning void.
Ordering Provider: TERE GARCIA
Report Released Date/Time: May 19, 2021 08:12 PM
Reporting Lab: MATIAS Perera [facility]
[address] [place] [phone]< br/> Performing Lab: MATIAS MarlenBianka [facility]
[address] [facility] [address]< br/> COMPREHE GLUCOSE 218 71 - 109 11 H Specimen EDGAR MEJIA [MASS/VOLU mg/dL /2020 Type: M. METABOLI ME] IN SERUM
WAIN WRIGH C PANEL SERUM OR Comment: T [facility] PLASMA LDL Direct Adult Reference Range: Optimal <100 mg/dL Near optimal/abo ve optimal 100-129 mg/dL Borderline high 130-159 mg/dL High 160-189 mg/dL Very High 190 mg/dL Note that non-fasting results may be slightly lower than fasting results.
Ordering Provider: TERE GARCIA
Report Released Date/Time: May 19, 2021 08:12 PM
Reporting Lab: MATIAS MarlenBianka [facility]
[address] [facility] [address]< br/> Performing Lab: MATIAS MarlenBianka [facility]
[address] [facility] [address]< br/> COMPREHE UREA 20 mg/dL 7 - 23 08/06 Specimen EDGAR MEJIA NITROGEN /2020 Type: M. METABOLI [MASS/VOLU SERUM
W AINWRIGH C PANEL ME] IN Comment: [facility] SERUM OR LDL Direct PLASMA Adult Reference Range: Optimal <100 mg/dL Near optimal/abo ve optimal 100-129 mg/dL Borderline high 130-159 mg/dL High 160-189 mg/dL Very High 190 mg/dL Note that non-fasting results may be slightly lower than fasting results.
Ordering Provider: TERE GARCIA
Report Released Date/Time: May 19, 2021 08:12 PM
Reporting Lab: MATIAS MarlenBianka [facility]
[address] [facility] [address]< br/> Performing Lab: MATIAS MarlenBianka [facility]
[address] [facility] [address]< br/> COMPREHE CREATININE 0.8 .5 - 1 08/06 Specimen PHILLIP STEPHAN NSIVE [MASS/VOLU mg/dL /2020 Type: M. METABOLI ME] IN SERUM
TXIN IGH C PANEL SERUM OR Comment: T [facility] PLASMA LDL Direct Adult Reference Range: Optimal <100 mg/dL Near optimal/abo ve optimal 100-129 mg/dL Borderline high 130-159 mg/dL High 160-189 mg/dL Very High 190 mg/dL Note that non-fasting results may be slightly lower than fasting results.
Ordering Provider: TERE GARCIA
Report Released Date/Time: May 19, 2021 08:12 PM
Reporting Lab: MATIAS Perera [facility]
[address] [facility] [address]< br/> Performing Lab: MATIAS Perera [facility]
[address] [place] [phone]< br/> COMPREHE SODIUM 140 131 - 142 08/06 Specimen MAHNAZ ALLEN NSIVE [MOLES/VOL mmol/L /2020 Type: M. METABOLI UME] IN SERUM
TXIN IGH C PANEL SERUM OR Comment: [facility] PLASMA LDL Direct Adult Reference Range: Optimal <100 mg/dL Near optimal/abo ve optimal 100-129 mg/dL Borderline high 130-159 mg/dL High 160-189 mg/dL Very High 190 mg/dL Note that non-fasting results may be slightly lower than fasting results.
Ordering Provider: TERE GARCIA
Report Released Date/Time: May 19, 2021 08:12 PM
Reporting Lab: MATIAS Perera [facility]
[address] [facility] [address]< br/> Performing Lab: MATIAS Perera [facility]
[address] [facility] [address]< br/> COMPREHE POTASSIUM 4.3 3.6 - 5.4 08/06 Specimen ALTON DOMINGUEZIVE [MOLES/VOL mmol/L /2020 Type: M. METABOLI UME] IN SERUM
WAIN WRIGH C PANEL SERUM OR Comment: [facility] PLASMA LDL Direct Adult Reference Range: Optimal <100 mg/dL Near optimal/abo ve optimal 100-129 mg/dL Borderline high 130-159 mg/dL High 160-189 mg/dL Very High 190 mg/dL Note that non-fasting results may be slightly lower than fasting results.
Ordering Provider: TERE GARCIA
Report Released Date/Time: May 19, 2021 08:12 PM
Reporting Lab: MATIAS MarlenBianka [facility]
[address] [facility] [address]< br/> Performing Lab: MATIAS MarlenBianka [facility]
[address] [facility] [address]< br/> COMPREHE CHLORIDE 106 95 - 108 08/06 Specimen MAHNAZ ALLEN NSIVE [MOLES/VOL mmol/L /2020 Type: M. METABOLI UME] IN SERUM
WAIN WRIGH C PANEL SERUM OR Comment: [facility] PLASMA LDL Direct Adult Reference Range: Optimal <100 mg/dL Near optimal/abo ve optimal 100-129 mg/dL Borderline high 130-159 mg/dL High 160-189 mg/dL Very High 190 mg/dL Note that non-fasting results may be slightly lower than fasting results.
Ordering Provider: TERE GARCIA
Report Released Date/Time: May 19, 2021 08:12 PM
Reporting Lab: MATIAS MarlenBianka [facility]
[address] [facility] [address]< br/> Performing Lab: MATIAS MarlenBianka [facility]
[address] [facility] [address]< br/> COMPREHE CARBON 22 21 - 32 08/06 Specimen JOABAH EVAN NSIVE DIOXIDE, mmol/L /2020 Type: M. METABOLI TOTAL SERUM
WAIN WRIGH C PANEL [MOLES/VOL Comment: [facility] UME] IN LDL Direct SERUM OR Adult PLASMA Reference Range: Optimal <100 mg/dL Near optimal/abo ve optimal 100-129 mg/dL Borderline high 130-159 mg/dL High 160-189 mg/dL Very High 190 mg/dL Note that non-fasting results may be slightly lower than fasting results.
Ordering Provider: TERE GARCIA
Report Released Date/Time: May 19, 2021 08:12 PM
Reporting Lab: MATIAS MarlenBianka [facility]
[address] [facility] [address]< br/> Performing Lab: MATIAS MarlenBianka [facility]
[address] [facility] [address]< br/> COMPREHE CALCIUM 9.2 8.4 - 10.5 08/06 Specimen PHILLIP DOMINGUEZIVE [MASS/VOLU mg/dL /2020 Type: M. METABOLI ME] IN SERUM
WAIN WRIGH C PANEL SERUM OR Comment: [facility] PLASMA LDL Direct Adult Reference Range: Optimal <100 mg/dL Near optimal/abo ve optimal 100-129 mg/dL Borderline high 130-159 mg/dL High 160-189 mg/dL Very High 190 mg/dL Note that non-fasting results may be slightly lower than fasting results.
Ordering Provider: TERE GARCIA
Report Released Date/Time: May 19, 2021 08:12 PM
Reporting Lab: MATIAS MarlenBianka [facility]
[address] [facility] [address]< br/> Performing Lab: MATIAS MarlenBianka [facility]
[address] [facility] [address]< br/> COMPREHE PROTEIN 6.8 g/dL 5.8 - 7.9 08/06 Specimen PHILLIP ATHEVAN NSIVE [MASS/VOLU /2020 Type: M. METABOLI ME] IN SERUM
WAIN WRIGH C PANEL SERUM OR Comment: [facility] PLASMA LDL Direct Adult Reference Range: Optimal <100 mg/dL Near optimal/abo ve optimal 100-129 mg/dL Borderline high 130-159 mg/dL High 160-189 mg/dL Very High 190 mg/dL Note that non-fasting results may be slightly lower than fasting results.
Ordering Provider: TERE GARCIA
Report Released Date/Time: May 19, 2021 08:12 PM
Reporting Lab: MATIAS Perera [facility]
[address] [place] [phone]< br/> Performing Lab: MATIAS Perera [facility]
[address] [place] [phone]< br/> COMPREHE ALBUMIN 4.4 g/dL 3.8 - 5.2 08/06 Specimen PHILLIP DOMINGUEZIVE [MASS/VOLU /2020 Type: M. METABOLI ME] IN SERUM
TXIN WRIGH C PANEL SERUM OR Comment: [facility] PLASMA LDL Direct Adult Reference Range: Optimal <100 mg/dL Near optimal/abo ve optimal 100-129 mg/dL Borderline high 130-159 mg/dL High 160-189 mg/dL Very High 190 mg/dL Note that non-fasting results may be slightly lower than fasting results.
Ordering Provider: TERE GARCIA
Report Released Date/Time: May 19, 2021 08:12 PM
Reporting Lab: MATIAS Perera [facility]
[address] [place] [phone]< br/> Performing Lab: MATIAS Perera [facility]
[address] [place] [phone]< br/> COMPREHE GLOBULIN 2.4 g/dL 1.5 - 3.2 08/06 Specimen ALTON DOMINGUEZIVE [MASS/VOLU /2020 Type: M. METABOLI ME] IN SERUM
WAIN WRIGH C PANEL SERUM Comment: [facility] LDL Direct Adult Reference Range: Optimal <100 mg/dL Near optimal/abo ve optimal 100-129 mg/dL Borderline high 130-159 mg/dL High 160-189 mg/dL Very High 190 mg/dL Note that non-fasting results may be slightly lower than fasting results.
Ordering Provider: TERE GARCIA
Report Released Date/Time: May 19, 2021 08:12 PM
Reporting Lab: MATIAS Perera [facility]
[address] [place] [phone]< br/> Performing Lab: MATIAS Perera [facility]
[address] [place] [phone]< br/> COMPREHE ASPARTATE 26 U/L 14 - 44 08/06 Specimen MAHNAZ TIFFANY NSIVE AMINOTRANS /2020 Type: M. METABOLI FERASE SERUM
WAIN WRIGH C PANEL [ENZYMATIC Comment: [facility] ACTIVITY/V LDL Direct OLUME] IN Adult SERUM OR Reference PLASMA Range: Optimal <100 mg/dL Near optimal/abo ve optimal 100-129 mg/dL Borderline high 130-159 mg/dL High 160-189 mg/dL Very High 190 mg/dL Note that non-fasting results may be slightly lower than fasting results.
Ordering Provider: TERE GARCIA
Report Released Date/Time: May 19, 2021 08:12 PM
Reporting Lab: MATIAS Perera [facility]
[address] [place] [phone]< br/> Performing Lab: MATIAS Perera [facility]
[address] [place] [phone]< br/> COMPREHE ALANINE 24 U/L 9 - 57 08/06 Specimen VARSHA GORDON NSIVE AMINOTRANS /2020 Type: M. METABOLI FERASE SERUM
WAIN WRIGH C PANEL [ENZYMATIC Comment: T [facility] ACTIVITY/V LDL Direct OLUME] IN Adult SERUM OR Reference PLASMA Range: Optimal <100 mg/dL Near optimal/abo ve optimal 100-129 mg/dL Borderline high 130-159 mg/dL High 160-189 mg/dL Very High 190 mg/dL Note that non-fasting results may be slightly lower than fasting results.
Ordering Provider: TERE GARCIA
Report Released Date/Time: May 19, 2021 08:12 PM
Reporting Lab: MATIAS Perera [facility]
[address] [facility] [address]< br/> Performing Lab: MATIAS Perera [facility]
[address] [facility] [address]< br/> COMPREHE ALKALINE 89 U/L 45 - 129 08/06 Specimen MAHNAZ THAN NSIVE PHOSPHATAS /2020 Type: M. METABOLI E SERUM
WAIN WRIGH C PANEL [ENZYMATIC Comment: T [facility] ACTIVITY/V LDL Direct OLUME] IN Adult SERUM OR Reference PLASMA Range: Optimal <100 mg/dL Near optimal/abo ve optimal 100-129 mg/dL Borderline high 130-159 mg/dL High 160-189 mg/dL Very High 190 mg/dL Note that non-fasting results may be slightly lower than fasting results.
Ordering Provider: TERE GARCIA
Report Released Date/Time: May 19, 2021 08:12 PM
Reporting Lab: MATIAS Perera [facility]
[address] [facility] [address]< br/> Performing Lab: MATIAS Perera [facility]
[address] [place] [phone]< br/> COMPREHE BILIRUBIN. 0.3 0.2 - 1.3 08/06 Specimen J ONATHAN NSIVE TOTAL mg/dL /2020 Type: M. METABOLI [MASS/VOLU SERUM
W AINWRIGH C PANEL ME] IN Comment: T [facility] SERUM OR LDL Direct PLASMA Adult Reference Range: Optimal <100 mg/dL Near optimal/abo ve optimal 100-129 mg/dL Borderline high 130-159 mg/dL High 160-189 mg/dL Very High 190 mg/dL Note that non-fasting results may be slightly lower than fasting results.
Ordering Provider: TERE GARCIA
Report Released Date/Time: May 19, 2021 08:12 PM
Reporting Lab: MATIAS MarlenBianka [facility]
[address] [facility] [address]< br/> Performing Lab: MATIAS Dilma [facility]
[address] [facility] [address]< br/> COMPREHE GLOMERULAR 79.0 60 08/06 Specimen PHILLIP ATHEVAN NSIVE FILTRATION mL/min/B /2020 Type: M. METABOLI RATE/1.73 SA SERUM
TX INWRIGH C PANEL SQ Comment: [facility] M.PREDICTE LDL Direct D [VOLUME Adult RATE/AREA] Reference IN SERUM Range: OR PLASMA Optimal BY <100 mg/dL CREATININE Near -BASED optimal/abo FORMULA ve optimal (MDRD) 100-129 mg/dL Borderline high 130-159 mg/dL High 160-189 mg/dL Very High 190 mg/dL Note that non-fasting results may be slightly lower than fasting results.
Ordering Provider: TERE GARCIA
Report Released Date/Time: May 19, 2021 08:12 PM
Reporting Lab: MATIAS MarlenBianka [facility]
[address] [facility] [address]< br/> Performing Lab: MATIAS MarlenBianka [facility]
[address] [place] [phone]< br/> COMPREHE ANION GAP 16 7 - 21 08/06 Specimen MAHNAZ THAN NSIVE 4 IN SERUM mmol/L /2020 Type: M. METABOLI OR PLASMA SERUM
TX INWRIGH C PANEL Comment: [facility] LDL Direct Adult Reference Range: Optimal <100 mg/dL Near optimal/abo ve optimal 100-129 mg/dL Borderline high 130-159 mg/dL High 160-189 mg/dL Very High 190 mg/dL Note that non-fasting results may be slightly lower than fasting results.
Ordering Provider: TERE GARCIA
Report Released Date/Time: May 19, 2021 08:12 PM
Reporting Lab: MATIAS Perera [facility]
[address] [facility] [address]< br/> Performing Lab: MATIAS Dilma [facility]
[address] [facility] [address]< br/> COMPREHE GLOMERULAR >90mL/Mi 90 08/06 Specimen ALTON DOMINGUEZIVE FILTRATION n/BSA /2020 Type: M. METABOLI RATE/1.73 SERUM
WA INWRIGH C PANEL SQ Comment: T [facility] MBiankaPREDICTE LDL Direct D [VOLUME Adult RATE/AREA] Reference IN SERUM, Range: PLASMA OR Optimal BLOOD BY <100 mg/dL CREATININE Near -BASED optimal/abo FORMULA ve optimal (CKD-EPI) 100-129 mg/dL Borderline high 130-159 mg/dL High 160-189 mg/dL Very High 190 mg/dL Note that non-fasting results may be slightly lower than fasting results.
Ordering Provider: ETRE GARCIA
Report Released Date/Time: May 19, 2021 08:12 PM
Reporting Lab: MATIAS MarlenBianka [facility]
[address] [place] [phone]< br/> Performing Lab: MATIAS MarlenBianka [facility]
[address] [place] [phone]< br/> CBC & LEUKOCYTES 6.7 K/L 3.0 - 10.6 08/06 Specimen MATIAS VILLALTA [#/VOLUME] /2020 Type: M. GY (WITH IN BLOOD BLOOD
< WA INWRIGH DIFF) BY div>No [facility] AUTOMATED comment COUNT entered.
</div> Ordering Provider: TERE GARCIA
Report Released Date/Time: May 19, 2021 08:12 PM
Reporting Lab: MATIAS MarlenBianka [facility]
[address] [place] [phone]< br/> Performing Lab: MATIAS MalrenBianka [facility]
[address] [place] [phone]& lt;br/> CBC & ERYTHROCYT 4.55 3.86 - 08/06 Specimen MAHNAZ VILLALTA ES M/L 5.70 /2020 Type: M. GY (WITH [#/VOLUME] BLOOD
< WAINWRIGH DIFF) IN BLOOD div>No [facility] BY comment AUTOMATED entered.<br COUNT /></div> Ordering Provider: TERE GARCIA
Report Released Date/Time: May 19, 2021 08:12 PM
Reporting Lab: MATIAS Perera [facility]
[address] [facility] [address]< br/> Performing Lab: MATIAS Perera [facility]
[address] [facility] [address]& lt;br/> CBC & HEMOGLOBIN 13.8 11.8 - 08/06 Specimen MAHNAZ VILLALTA [MASS/VOLU g/dL 17.1 /2020 Type: M. GY (WITH ME] IN BLOOD
< MIA NWRIGH DIFF) BLOOD div>No [facility] comment entered.
</div> Ordering Provider: TERE GARCIA
Report Released Date/Time: May 19, 2021 08:12 PM
[facility]
[address] [facility] [address]< br/> Performing Lab: MATIAS Perera [facility]
[address] [facility] [address]& lt;br/> CBC & HEMATOCRIT 42.7 % 36 - 51 08/06 Specimen MAHNAZ VILLALTA [VOLUME /2020 Type: M. GY (WITH FRACTION] BLOOD
< W AINWRIGH DIFF) OF BLOOD div>No [facility] BY comment AUTOMATED entered.<br COUNT /></div> Ordering Provider: TERE GARCIA
Report Released Date/Time: May 19, 2021 08:12 PM
Reporting Lab: MATIAS Perera [facility]
[address] [facility] [address]< br/> Per[facility]: [facility]
[address] [facility] [address]& lt;br/> CBC & MCV 93.8 fL 81 - 102 08/06 Specimen VARSHA GORDON AMBAR [ENTITIC /2020 Type: M. GY (WITH VOLUME] BY BLOOD
< WAINWRIGH DIFF) AUTOMATED div>No [facility] COUNT comment entered.
</div> Ordering Provider: TERE GARCIA
Report Released Date/Time: May 19, 2021 08:12 PM
Reporting Lab: MATIAS MarlenBianka [facility]
[address] [facility] [address]< br/> Performing Lab: MATIAS MarlenBianka [facility]
[address] [facility] [address]& lt;br/> CBC & MCH 30.3 pg 27 - 31 08/06 Specimen ALTONLITO Larry VILLALTA [ENTITIC /2020 Type: M. GY (WITH MASS] BY BLOOD
< WA INWRIGH DIFF) AUTOMATED div>No [facility] COUNT comment entered.
</div> Ordering Provider: TERE GARCIA
Report Released Date/Time: May 19, 2021 08:12 PM
Reporting Lab: MATIAS Perera [facility]
[address] [facility] [address]< br/> Performing Lab: MATIAS MarlenBianka [facility]
[address] [facility] [address]& lt;br/> CBC & MCHC 32.3 32 - 36 08/06 Specimen FIOR Larry VILLALTA [MASS/VOLU g/dL /2020 Type: M. GY (WITH ME] BY BLOOD
< MIA NWRIGH DIFF) AUTOMATED div>No [facility] COUNT comment entered.
</div> Ordering Provider: TERE GARCIA
Report Released Date/Time: May 19, 2021 08:12 PM
Reporting Lab: MATIAS GeeBianka [facility]
[address] [facility] [address]< br/> Performing Lab: MATIAS MarlenBianka [facility]
[address] [facility] [address]& lt;br/> CBC & PLATELETS 274 K/L 150 - 400 08/06 Specimen ALTON VILLALTA [#/VOLUME] /2020 Type: M. GY (WITH IN BLOOD BLOOD
< WA INWRIGH DIFF) BY div>No T [facility] AUTOMATED comment COUNT entered.
</div> Ordering Provider: TERE GARCIA
Report Released Date/Time: May 19, 2021 08:12 PM
Reporting Lab: MATIAS MarlenBianka [facility]
[address] [facility] [address]< br/> Performing Lab: MATIAS MarlenBianka [facility]
[address] [facility] [address]& lt;br/> CBC & ERYTHROCYT 12.9 % 11.2 - 08/06 Specimen MAHNAZ VILLALTA E 16.2 /2020 Type: M. GY (WITH DISTRIBUTI BLOOD
< WAINWRIGH DIFF) ON WIDTH div>No T [facility] [RATIO] BY comment AUTOMATED entered.<br COUNT /></div> Ordering Provider: TERE GARCIA
Report Released Date/Time: May 19, 2021 08:12 PM
Reporting Lab: MATIAS MarlenBianka [facility]
[address] [facility] [address]< br/> Performing Lab: MATIAS MarlenBianka [facility]
[address] [facility] [address]& lt;br/> CBC & NEUTROPHIL 60.9 % 44 - 74 08/06 Specimen MAHNAZ VILLALTA S/100 Type: M. GY (WITH LEUKOCYTES BLOOD
< WAINWRIGH DIFF) IN BLOOD div>No T [facility] BY comment AUTOMATED entered.<br COUNT /></div> Ordering Provider: TERE GARCIA
Report Released Date/Time: May 19, 2021 08:12 PM
Reporting Lab: MATIAS Perera [facility]
[address] [facility] [address]< br/> Performing Lab: MATIAS MarlenBianka [facility]
[address] [facility] [address]& lt;br/> CBC & LYMPHOCYTE 26.4 % 15 - 42 08/06 Specimen MAHNAZ THAN MORPHOLO S/100 Type: M. GY (WITH LEUKOCYTES BLOOD
< WAINWRIGH DIFF) IN BLOOD div>No T [facility] BY comment AUTOMATED entered.<br COUNT /></div> Ordering Provider: TERE GARCIA
Report Released Date/Time: May 19, 2021 08:12 PM
Reporting Lab: MATIAS Perera [facility]
[address] [facility] [address]< br/> Performing Lab: MATIAS Perera [facility]
[address] [facility] [address]& lt;br/> CBC & MONOCYTES/ 7.9 % 4 - 13 08/06 Specimen MAHNAZ THAN MORPHOLO Type: M. GY (WITH LEUKOCYTES BLOOD
< WAINWRIGH DIFF) IN BLOOD div>No T [facility] BY comment AUTOMATED entered.<br COUNT /></div> Ordering Provider: TERE GARCIA
Report Released Date/Time: May 19, 2021 08:12 PM
Reporting Lab: MATIAS Perera [facility]
[address] [facility] [address]< br/> Performing Lab: MATIAS Perera [facility]
[address] [facility] [address]& lt;br/> CBC & EOSINOPHIL 3.6 % 0 - 7 08/06 Specimen MAHNAZ THAN MORPHOLO S/100 1 Type: M. GY (WITH LEUKOCYTES BLOOD
< WAINWRIGH DIFF) IN BLOOD div>No T [facility] BY comment AUTOMATED entered.<br COUNT /></div> Ordering Provider: TERE GARCIA
Report Released Date/Time: May 19, 2021 08:12 PM
Reporting Lab: MATIAS Perera [facility]
[address] [facility] [address]< br/> Performing Lab: MATIAS Perera [facility]
[address] [facility] [address]& lt;br/> CBC & BASOPHILS/ 0.9 % 0 - 2 08/06 Specimen MAHNAZ ALLEN MORPHOLO Type: M. GY (WITH LEUKOCYTES BLOOD
< WAINWRIGH DIFF) IN BLOOD div>No [facility] BY comment AUTOMATED entered.<br COUNT /></div> Ordering Provider: TERE GARCIA
Report Released Date/Time: May 19, 2021 08:12 PM
Reporting Lab: MATIAS Perera [facility]
[address] [facility] [address]< br/> Performing Lab: MATIAS Perera [facility]
[address] [facility] [address]& lt;br/> CBC & NEUTROPHIL 4.1 K/L 1.2 - 7.0 08/06 Specimen Freda VILLALTA Type: M. GY (WITH [#/VOLUME] BLOOD
< WAINWRIGH DIFF) IN BLOOD div>No [facility] BY comment AUTOMATED entered.<br COUNT /></div> Ordering Provider: TERE GARCIA
Report Released Date/Time: May 19, 2021 08:12 PM
Reporting Lab: MATIAS [facility]rera [facility]
[address] [facility] [address]< br/> Performing Lab: MATIAS Perera [facility]
[address] [facility] [address]& lt;br/> CBC & LYMPHOCYTE 1.8 K/L 0.6 - 3.4 08/06 Specimen J ANDRAE VILLALTA Type: M. GY (WITH [#/VOLUME] BLOOD
< WAINWRIGH DIFF) IN BLOOD div>No T [facility] BY comment AUTOMATED entered.<br COUNT /></div> Ordering Provider: TERE GARCIA
Report Released Date/Time: May 19, 2021 08:12 PM
Reporting Lab: MATIAS MarlenBianka [facility]
[address] [facility] [address]< br/> Performing Lab: MATIAS Perera [facility]
[address] [facility] [address]& lt;br/> CBC & MONOCYTES 0.5 K/L 0.2 - 1.0 08/06 Specimen ALTON VILLALTA [#/VOLUME] Type: M. GY (WITH IN BLOOD BLOOD
< WA INWRIGH DIFF) BY div>No [facility] AUTOMATED comment COUNT entered.
</div> Ordering Provider: TERE GARCIA
Report Released Date/Time: May 19, 2021 08:12 PM
Reporting Lab: MATIAS Perera [facility]
[address] [place] [phone]< br/> Performing Lab: MATIAS MarlenBianka [facility]
[address] [facility] [address]& lt;br/> CBC & EOSINOPHIL 0.2 K/L 0.0 - 0.5 08/06 Specimen J ANDRAE VILLALTA Type: M. GY (WITH [#/VOLUME] BLOOD
< WAINWRIGH DIFF) IN BLOOD div>No [facility] BY comment AUTOMATED entered.<br COUNT /></div> Ordering Provider: TERE GARCIA
Report Released Date/Time: May 19, 2021 08:12 PM
Reporting Lab: MATIAS MarlenBianka [facility]
[address] [facility] [phone]< br/> Performing Lab: MATIAS MarlenBianka [facility]
[address] [facility] [phone]& lt;br/> CBC & BASOPHILS 0.1 K/L 0.0 - 0.2 08/06 Specimen ALTON VILLALTA [#/VOLUME] /2020 Type: M. GY (WITH IN BLOOD BLOOD
< WA INWRIGH DIFF) BY div>No T [facility] AUTOMATED comment COUNT entered.
</div> Ordering Provider: TERE GARCIA
Report Released Date/Time: May 19, 2021 08:12 PM
Reporting Lab: MATIAS Perera [facility]
[address] [place] [id number]< br/> Performing Lab: MATIAS Perera [facility]
[address] [place] [phone]& lt;br/> CBC & IMMATURE 0.3 % 0 - 0.9 08/06 Specimen VARSHA VILLALTA GRANULOCYT /2020 Type: M. GY (WITH ES/100 BLOOD
< MIA NWRIGH DIFF) LEUKOCYTES div>No T VA C IN BLOOD comment BY entered.<br AUTOMATED /></div> COUNT Ordering Provider: TERE GARCIA
Report Released Date/Time: May 19, 2021 08:12 PM
Reporting Lab: MATIAS Perera [facility]
[address] [facility] [phone]< br/> Performing Lab: MATIAS Perera [facility]
[address] [facility] [phone]& lt;br/> CBC & IMMATURE 0.02 0 - 0.07 08/06 Specimen EDGAR VILLALTA GRANULOCYT K/L /2020 Type: M. GY (WITH ES BLOOD
< MIA NWRIGH DIFF) [#/VOLUME] div>No T [facility] IN BLOOD comment BY entered.<br AUTOMATED /></div> COUNT Ordering Provider: TERE GARCIA
Report Released Date/Time: May 19, 2021 08:12 PM
Reporting Lab: MATIAS Perera [facility]
[address] [place] [phone]< br/> Performing Lab: MATIAS Perera [facility]
[address] [place] [phone]& lt;br/> THYROID THYROTROPI 1.89 0.300 - 08/06 Specimen MAHNAZ THAN STIMULAT N IU/mL 4. /2020 Type: M. ING [UNITS/VOL SERUM
[facility]] IN Comment: [facility] SERUM OR LDL Direct PLASMA Adult Reference Range: Optimal <100 mg/dL Near optimal/abo ve optimal 100-129 mg/dL Borderline high 130-159 mg/dL High 160-189 mg/dL Very High 190 mg/dL Note that non-fasting results may be slightly lower than fasting results.
Ordering Provider: TERE GARCIA
Report Released Date/Time: May 19, 2021 08:12 PM
Reporting Lab: MATIAS Perera [facility]
[address] [place] [phone]< br/> Performing Lab: MATIAS MarlenBianka [facility]
[address] [place] [phone]< br/> LIPID CHOLESTERO 179 <199 - 199 08/06 Specimen J ONATHAN PANEL L mg/dL /2020 Type: M. [MASS/VOLU SERUM
[place] [facility] MD] IN Comment: [facility] SERUM OR LDL Direct PLASMA Adult Reference Range: Optimal <100 mg/dL Near optimal/abo ve optimal 100-129 mg/dL Borderline high 130-159 mg/dL High 160-189 mg/dL Very High 190 mg/dL Note that non-fasting results may be slightly lower than fasting results.
Ordering Provider: TERE GARCIA
Report Released Date/Time: May 19, 2021 08:12 PM
Reporting Lab: MATIAS Perera [facility]
[address] [place] [phone]< br/> Performing Lab: MATIAS MBianka [facility]
[address] [place] [phone]< br/> LIPID TRIGLYCERI 335 <149 - 149 08/06 H Specimen J ONATHAN PANEL DE mg/dL /2020 Type: M. [MASS/VOLU SERUM
[place] IN[facility] MD] IN Comment: T [facility] SERUM OR LDL Direct PLASMA Adult Reference Range: Optimal <100 mg/dL Near optimal/abo ve optimal 100-129 mg/dL Borderline high 130-159 mg/dL High 160-189 mg/dL Very High 190 mg/dL Note that non-fasting results may be slightly lower than fasting results.
Ordering Provider: TERE GARCIA
Report Released Date/Time: May 19, 2021 08:12 PM
Reporting Lab: MATIAS MarlenBianka [facility]
[address] [place] [phone]< br/> Performing Lab: MATIAS Perera [facility]
[address] [place] [phone]< br/> LIPID CHOLESTERO 41 mg/dL 40 08/06 Specimen PHILLIP ATHAN PANEL L IN HDL /2020 Type: M. [MASS/VOLU SERUM
[facility]] IN Comment: T [facility] SERUM OR LDL Direct PLASMA Adult Reference Range: Optimal <100 mg/dL Near optimal/abo ve optimal 100-129 mg/dL Borderline high 130-159 mg/dL High 160-189 mg/dL Very High 190 mg/dL Note that non-fasting results may be slightly lower than fasting results.
Ordering Provider: TERE GARCIA
Report Released Date/Time: May 19, 2021 08:12 PM
Reporting Lab: MATIAS Perera [facility]
[address] [facility] [address]< br/> Performing Lab: MATIAS MarlenBianka [facility]
[address] [facility] [address]< br/> LIPID CHOLESTERO 138 <130 - 130 08/06 Specimen J ONATHAN PANEL L NON HDL mg/dL /2020 Type: M. [MASS/VOLU SERUM
[place] [facility] MD] IN Comment: T [facility] SERUM OR LDL Direct PLASMA Adult Reference Range: Optimal <100 mg/dL Near optimal/abo ve optimal 100-129 mg/dL Borderline high 130-159 mg/dL High 160-189 mg/dL Very High 190 mg/dL Note that non-fasting results may be slightly lower than fasting results.
Ordering Provider: TERE GARCIA
Report Released Date/Time: May 19, 2021 08:12 PM
Reporting Lab: MATIAS Perera [facility]
[address] [place] [phone]< br/> Performing Lab: MATIAS MarlenBianka [facility]
[address] [facility] [address]< br/> LIPID CHOLESTERO 89 mg/dL 0 - 129 08/06 Specimen PHILLIP ATHAN PANEL L IN LDL /2020 Type: M. [MASS/VOLU SERUM
[facility]] IN Comment: [facility] SERUM OR LDL Direct PLASMA BY Adult DIRECT Reference ASSAY Range: Optimal <100 mg/dL Near optimal/abo ve optimal 100-129 mg/dL Borderline high 130-159 mg/dL High 160-189 mg/dL Very High 190 mg/dL Note that non-fasting results may be slightly lower than fasting results.
Ordering Provider: TERE GARCIA
Report Released Date/Time: May 19, 2021 08:12 PM
Reporting Lab: MATIAS Perera [facility]
[address] [facility] [address]< br/> Performing Lab: MATIAS Perera [facility]
[address] [facility] [address]< br/> HEMOGLOB HEMOGLOBIN 12.5 % 0 - 5.6 08/06 H Specimen PHILLIP ROTHMAN IN A1C A1C/HEMOGL /2020 Type: M. OBIN.TOTAL BLOOD
[place] IN[place] IN BLOOD Comment: T [facility] Target A1C values should be individuali zed. Better understandi ng of A1C test result accuracy is essential if clinicians are to interpret results for Veterans, and discuss treatment options through the process of Shared Decision Making. For questions regarding the performance characteris tics of this test, providers should contact the main laboratory. Patients should contact their healthcare provider.<b r/> Ordering Provider: TERE GARCIA
Report Released Date/Time: May 19, 2021 08:12 PM
Reporting Lab: MATIAS Perera [facility]
[address] [place] [phone]< br/> Performing Lab: MATIAS Perera [facility]
[address] [place] [phone]< br/> [place] CODEINE 27097 0 - 24 08/12 H Specimen JONATHA N OPIATE [MASS/VOLU ng/mL /2020 Type: M. PANEL ME] IN URINE
< WAIN WRIGH WITH URINE div>No T [facility] NALOXONE comment entered.
</div> Ordering Provider: TERE GARCIA
Report Released Date/Time: Mar 17, 2021 06:59 PM
Reporting Lab: MATIAS Perera [facility]
[address] [place] [phone]< br/> Performing Lab: MATIAS Perera [facility]
; [place] [address]
[place] MORPHINE 143 0 - 24 08/12 H Specimen JONATH AN OPIATE [PRESENCE] ng/mL /2020 Type: M. PANEL IN URINE URINE
< MIA NWRIGH WITH div>No T [facility] NALOXONE comment entered.
</div> Ordering Provider: TERE GARCIA
Report Released Date/Time: Mar 17, 2021 06:59 PM
Reporting Lab: MATIAS Perera [facility]
[address] [place] [phone]< br/> Performing Lab: MATIAS M. [facility]
[phone]; [place] [address]
[place] OXYCODONE <25ng/mL 0 - 24 08/12 Specimen MAHNAZ THAN OPIATE [PRESENCE] /2020 Type: M. PANEL IN URINE URINE
< MIA NWRIGH WITH div>No T [facility] NALOXONE comment entered.
</div> Ordering Provider: TERE GARCIA
Report Released Date/Time: Mar 17, 2021 06:59 PM
Reporting Lab: MATIAS MarlenBianka [facility]
[address] [place] [phone]< br/> Performing Lab: MATIAS MarlenBianka [facility]
; [place] [address]
VA OXYMORPHON <25ng/mL 0 - 24 08/12 Specimen PHILLIP ATHAN OPIATE E /2020 Type: M. PANEL [MASS/VOLU URINE
< W AINWRIGH WITH ME] IN div>No T [facility] NALOXONE URINE BY comment CONFIRMATO entered.<br RY METHOD /></div> Ordering Provider: TERE GARCIA
Report Released Date/Time: Mar 17, 2021 06:59 PM
Reporting Lab: MATIAS M. [facility]
[address] [place] [phone]< br/> Performing Lab: MATIAS MarlenBianka [facility]
[phone]; [place] [address]
[place] HYDROCODON 242 0 - 24 08/12 H Specimen MAHNAZ THAN OPIATE E ng/mL /2020 Type: M. PANEL [PRESENCE] URINE
< W AINWRIGH WITH IN URINE div>No T [facility] NALOXONE comment entered.
</div> Ordering Provider: TERE GARCIA
Report Released Date/Time: Mar 17, 2021 06:59 PM
Reporting Lab: MATIAS Perera [facility]
[address] [facility] [address]< br/> Performing Lab: MATIAS Perera [facility]
; [place] [address]
VA HYDROMORPH <25ng/mL 0 - 24 08/12 Specimen PHILLIP ATHAN OPIATE ONE /2020 Type: M. PANEL [PRESENCE] URINE
< W AINWRIGH WITH IN URINE div>No T [facility] NALOXONE comment entered.
</div> Ordering Provider: TERE GARCIA
Report Released Date/Time: Mar 17, 2021 06:59 PM
Reporting Lab: MATIAS Perera [facility]
[address] [place] [phone]< br/> Performing Lab: MATIAS Dilma [facility]
; [place] [address]
[place] NALOXONE <10ng/mL 0 - 9 08/12 Specimen JONAT VILLEGAS OPIATE [MASS/VOLU /2020 Type: M. PANEL ME] IN URINE
< WAIN WRIGH WITH URINE BY div>No T [facility] NALOXONE CONFIRMATO comment RY METHOD entered.
</div> Ordering Provider: TERE GARCIA
Report Released Date/Time: Mar 17, 2021 06:59 PM
Reporting Lab: MATIAS Perera [facility]
[address] [place] [phone]< br/> Performing Lab: MATIAS MBianka [facility]
[phone]; [place] [address]
VA 6-MONOACET <10ng/mL 0 - 9 08/12 Specimen PHILLIP ATHAN OPIATE YLMORPHINE /2020 Type: M. PANEL (6-LYNN) URINE
< WAIN WRIGH WITH [MASS/VOLU div>No T [facility]OX[facility] ME] IN comment URINE BY entered.<br CONFIRMATO /></div> RY METHOD Ordering Provider: TERE GARCIA
Report Released Date/Time: Mar 17, 2021 06:59 PM
Reporting Lab: MATIAS Perera [facility]
[address] [facility] [address]< br/> Performing Lab: MATIAS Perera [facility]
; [place] [address]
VA NOROXYCODO <25ng/mL 0 - 24 08/12 Specimen PHILLIP ATHAN OPIATE NE /2020 Type: M. PANEL [MASS/VOLU URINE
< W AINWRIGH WITH ME] IN div>No T [facility] NALOXONE URINE BY comment CONFIRMATO entered.<br RY METHOD /></div> Ordering Provider: TERE GARCIA
Report Released Date/Time: Mar 17, 2021 06:59 PM
Reporting Lab: MATIAS Perera [facility]
[address] [place] [phone]< br/> Performing Lab: MATIAS Perera [facility]
[phone]; [place] [address]
VA NORHYDROCO 132 0 - 49 08/12 H Specimen MAHNAZ THAN OPIATE DONE ng/mL /2020 Type: M. PANEL [MASS/VOLU URINE
< W AINWRIGH WITH ME] IN div>No T [facility] N[facility]OX[facility] URINE BY comment CONFIRMATO entered.<br RY METHOD /></div> Ordering Provider: TERE GARCIA
Report Released Date/Time: Mar 17, 2021 06:59 PM
Reporting Lab: MATIAS Perera [facility]
[address] [place] [phone]< br/> Performing Lab: MATIAS Perera [facility]
; [place] [address]
VA TRAMADOL <100ng/m 0 - 99 04/29 Specimen EDGAR VILLEGAS OPIATE [MASS/VOLU L /2020 Type: M. PANEL ME] IN URINE
< WAIN WRIGH WITH URINE div>No T [facility] NALOXONE comment entered.
</div> Ordering Provider: TERE GARCIA
Report Released Date/Time: Mar 17, 2021 06:59 PM
Reporting Lab: MATIAS Perera [facility]
[address] [place] [phone]< br/> Performing Lab: MATIAS Perera [facility]
; [place] [address]
VA MEPERIDINE <100ng/m 0 - 99 04/29 Specimen PHILLIP PATRICIAAN OPIATE [MASS/VOLU L /2020 Type: M. PANEL ME] IN URINE
< WAIN WRIGH WITH URINE BY div>No T [facility] CONFIRMATO comment RY METHOD entered.
</div> Ordering Provider: TERE GARCIA
Report Released Date/Time: Mar 17, 2021 06:59 PM
Reporting Lab: MATIAS Perera [facility]
[address] [place] [phone]< br/> Performing Lab: MATIAS Perera [facility]
; [place] [address]
VA NOROXYMORP <50ng/mL 0 - 49 04/29 Specimen PHILLIP ATHAN OPIATE ROSI Type: M. PANEL [MASS/VOLU URINE
< W AINWRIGH WITH ME] IN div>No T [facility] URINE BY comment CONFIRMATO entered.<br RY METHOD /></div> Ordering Provider: TERE GARCIA
Report Released Date/Time: Mar 17, 2021 06:59 PM
Reporting Lab: MATIAS Perera [facility]
[address] [place] [phone]< br/> Performing Lab: MATIAS Perera [facility]
[phone]; [place] [address]
VA TAPENTADOL <50ng/mL 0 - 49 04/29 Specimen PHILLIP GOMEZAN OPIATE [MASS/VOLU /2020 Type: M. PANEL ME] IN URINE
< WAIN WRIGH WITH URINE BY div>No T [facility] CONFIRMATO comment RY METHOD entered.
</div> Ordering Provider: TERE GARCIA
Report Released Date/Time: Mar 17, 2021 06:59 PM
Reporting Lab: MATIAS Perera [facility]
[address] [place] [phone]< br/> Performing Lab: MATIAS Perera [facility]
; [place] [address]
VA TAPENTADOL <100ng/m 0 - 99 04/29 Specimen PHILLIP ROTHMAN OPIATE -S L /2020 Type: M. PANEL URINE
< WAIN WRIGH WITH div>No T [facility] comment entered.
</div> Ordering Provider: TERE GARCIA
Report Released Date/Time: Mar 17, 2021 06:59 PM
Reporting Lab: MATIAS Perera [facility]
[address] [place] [phone]< br/> Performing Lab: MATIAS Perera [facility]
[phone]; [place] [address]
VA ZOLPIDEM <20ng/mL 0 - 19 12 Specimen EDGAR VILLEGAS OPIATE [MASS/VOLU /2020 Type: M. PANEL ME] IN URINE
< WAIN WRIGH WITH URINE BY div>No T [facility] CONFIRMATO comment RY METHOD entered.
</div> Ordering Provider: TERE GARCIA
Report Released Date/Time: Mar 17, 2021 06:59 PM
Reporting Lab: MATIAS Perera [facility]
[address] [place] [phone]< br/> Performing Lab: MATIAS Perera [facility]
; [place] [address]
EXPANDED CREATININE 113.2 29 - 226 04/29 Specimen ALTON GARRISON URINE [MASS/VOLU mg/dL /2020 Type: M. DRUG ME] IN URINE
WAINW RIGH SCREEN URINE Comment: [facility] These drug screen results are presumptive only. For unexpected results, confirmator y testing is available if requested in a timely manner. Results are to be used for medical purposes only. Urine creatinine values <20 mg/dL should be considered a dilute sample. CREATININE, URINE reference ranges apply to first morning void.
Ordering Provider: TERE GARCIA
Report Released Date/Time: Mar 17, 2021 06:59 PM
Reporting Lab: MATIAS Perera [facility]
[address] [place] [phone]< br/> Performing Lab: MATIAS Perera [facility]
[address] [place] [phone]< br/> EXPANDED AMPHETAMIN 87 04/29 Specimen PHILLIP ROTHMAN URINE ES /2020 Type: M. DRUG [PRESENCE] URINE
[place] INWRIGH SCREEN IN URINE Comment: [facility] BY SCREEN These drug METHOD screen results are presumptive only. For unexpected results, confirmator y testing is available if requested in a timely manner. Results are to be used for medical purposes only. Urine creatinine values <20 mg/dL should be considered a dilute sample. CREATININE, URINE reference ranges apply to first morning void.
Ordering Provider: TERE GARCIA
Report Released Date/Time: Mar 17, 2021 06:59 PM
Reporting Lab: MATIAS Perera [facility]
[address] [facility] [address]< br/> Performing Lab: MATIAS Perera [facility]
[address] [facility] [address]< br/> EXPANDED BARBITURAT 11 04/29 Specimen PHILLIP ROTHMAN URINE ES Type: M. DRUG [PRESENCE] URINE
[place] INWRIGH SCREEN IN URINE Comment: [facility] BY SCREEN These drug METHOD screen results are presumptive only. For unexpected results, confirmator y testing is available if requested in a timely manner. Results are to be used for medical purposes only. Urine creatinine values <20 mg/dL should be considered a dilute sample. CREATININE, URINE reference ranges apply to first morning void.
Ordering Provider: TERE GARCIA
Report Released Date/Time: Mar 17, 2021 06:59 PM
Reporting Lab: MATIAS Perera [facility]
[address] [facility] [address]< br/> Performing Lab: MATIAS Perera [facility]
[address] [facility] [address]< br/> EXPANDED BENZODIAZE 04/29 Specimen PHILLIP ROTHMAN URINE PINES Type: M. DRUG [PRESENCE] URINE
[place] INWRIGH SCREEN IN URINE Comment: T [facility] BY SCREEN These drug METHOD screen results are presumptive only. For unexpected results, confirmator y testing is available if requested in a timely manner. Results are to be used for medical purposes only. Urine creatinine values <20 mg/dL should be considered a dilute sample. CREATININE, URINE reference ranges apply to first morning void.
Ordering Provider: TERE GARCIA
Report Released Date/Time: Mar 17, 2021 06:59 PM
Reporting Lab: MATIAS Perera [facility]
[address] [facility] [address]< br/> Performing Lab: MATIAS Perera [facility]
[address] [facility] [address]< br/> EXPANDED CANNABINOI 23 04/29 Specimen PHILLIP ROTHMAN URINE DS Type: M. DRUG [PRESENCE] URINE
[place] INWRIGH SCREEN IN URINE Comment: T [facility] BY SCREEN These drug METHOD screen results are presumptive only. For unexpected results, confirmator y testing is available if requested in a timely manner. Results are to be used for medical purposes only. Urine creatinine values <20 mg/dL should be considered a dilute sample. CREATININE, URINE reference ranges apply to first morning void.
Ordering Provider: TERE GARCIA
Report Released Date/Time: Mar 17, 2021 06:59 PM
Reporting Lab: MATIAS Perera [facility]
[address] [facility] [address]< br/> Performing Lab: MATIAS Perera [facility]
[address] [place] [phone]< br/> EXPANDED BENZOYLECG 4 04/29 Specimen PHILLIP ROTHMAN URINE ONINE Type: M. DRUG [PRESENCE] URINE
[place] INWRIGH SCREEN IN URINE Comment: T [facility] BY SCREEN These drug METHOD screen results are presumptive only. For unexpected results, confirmator y testing is available if requested in a timely manner. Results are to be used for medical purposes only. Urine creatinine values <20 mg/dL should be considered a dilute sample. CREATININE, URINE reference ranges apply to first morning void.
Ordering Provider: TERE GARCIA
Report Released Date/Time: Mar 17, 2021 06:59 PM
Reporting Lab: MATIAS Perera [facility]
[address] [facility] [address]< br/> Performing Lab: MATIAS Perera [facility]
[address] [facility] [address]< br/> EXPANDED METHADONE 0 04/29 Specimen MAHNAZ ALLEN URINE [PRESENCE] /2020 Type: M. DRUG IN URINE URINE
WAIN WRIGH SCREEN BY SCREEN Comment: T [facility] METHOD These drug screen results are presumptive only. For unexpected results, confirmator y testing is available if requested in a timely manner. Results are to be used for medical purposes only. Urine creatinine values <20 mg/dL should be considered a dilute sample. CREATININE, URINE reference ranges apply to first morning void.
Ordering Provider: TERE GARCIA
Report Released Date/Time: Mar 17, 2021 06:59 PM
Reporting Lab: MATIAS Perera [facility]
[address] [facility] [address]< br/> Performing Lab: MATIAS GeeBianka [facility]
[address] [facility] [address]< br/> EXPANDED 2-ETHYLIDE 71 04/29 Specimen PHILLIP ROTHMAN URINE NE-1,5-DIM /2020 Type: M. DRUG ETHYL-3,3- URINE
[place] INSCOTT SCREEN DIPHENYLPY Comment: T [facility] RROLIDINE These drug (EDDP) screen [PRESENCE] results are IN URINE presumptive only. For unexpected results, confirmator y testing is available if requested in a timely manner. Results are to be used for medical purposes only. Urine creatinine values <20 mg/dL should be considered a dilute sample. CREATININE, URINE reference ranges apply to first morning void.
Ordering Provider: TERE GARCIA
Report Released Date/Time: Mar 17, 2021 06:59 PM
Reporting Lab: MATIAS Perera [facility]
[address] [facility] [address]< br/> Performing Lab: MATIAS GeeBianka [facility]
[address] [facility] [address]< br/> EXPANDED OPIATES 1500 04/29 Specimen VARSHA GORDON URINE [PRESENCE] /2020 Type: M. DRUG IN URINE URINE
NHANIN SCOTT SCREEN BY SCREEN Comment: [facility] METHOD These drug screen results are presumptive only. For unexpected results, confirmator y testing is available if requested in a timely manner. Results are to be used for medical purposes only. Urine creatinine values <20 mg/dL should be considered a dilute sample. CREATININE, URINE reference ranges apply to first morning void.
Ordering Provider: TERE GARCIA
Report Released Date/Time: Mar 17, 2021 06:59 PM
Reporting Lab: MATIAS Perera [facility]
[address] [place] [phone]< br/> Performing Lab: MATIAS Perera [facility]
[address] [place] [phone]< br/> EXPANDED OXYCODONE 04/29 Specimen MAHNAZ ALLEN URINE [PRESENCE] /2020 Type: M. DRUG IN URINE URINE
WAIN WRIGH SCREEN BY SCREEN Comment: T [facility] METHOD These drug screen results are presumptive only. For unexpected results, confirmator y testing is available if requested in a timely manner. Results are to be used for medical purposes only. Urine creatinine values <20 mg/dL should be considered a dilute sample. CREATININE, URINE reference ranges apply to first morning void.
Ordering Provider: TERE GARCIA
Report Released Date/Time: Mar 17, 2021 06:59 PM
Reporting Lab: MATIAS Perera [facility]
[address] [place] [phone]< br/> Performing Lab: MATIAS Perera [facility]
[address] [place] [phone]< br/> EXPANDED PHENCYCLID 11 04/29 Specimen PHILLIP ROTHMAN URINE INE /2020 Type: M. DRUG [PRESENCE] URINE
[place] INWRIGH SCREEN IN URINE Comment: T [facility] BY SCREEN These drug METHOD screen results are presumptive only. For unexpected results, confirmator y testing is available if requested in a timely manner. Results are to be used for medical purposes only. Urine creatinine values <20 mg/dL should be considered a dilute sample. CREATININE, URINE reference ranges apply to first morning void.
Ordering Provider: TERE GARCIA
Report Released Date/Time: Mar 17, 2021 06:59 PM
Reporting Lab: MATIAS Perera [facility]
[address] [facility] [address]< br/> Performing Lab: MATIAS Perera [facility]
[address] [facility] [address]< br/> COVID-19 INFLUENZA Not 08 Specimen MAHNAZ THAN & FLU VIRUS A Detected /2020 Type: M. DIAGNOST RNA NASOPHARYNX [facility] IC PANEL [PRESENCE]
T [facility] ([facility]) IN Comment: NASOPHARYN Matt Jorge X BY OJ Sanaz WITH PROBE ([phone])
DETECTION Ordering Provider: TERE GARCIA
Report Released Date/Time: Apr 22, 2021 03:18 PM
Reporting Lab: MATIAS Perera [facility]
[address] [place] [phone]< br/> Performing Lab: MATIAS Perera [facility]
[address] [facility] [address]< br/> COVID-19 INFLUENZA Not 08 Specimen MAHNAZ THAN & FLU VIRUS B Detected /2020 Type: M. DIAGNOST RNA NASOPHARYNX [facility] IC PANEL [PRESENCE]
T [facility] ([facility] IN Comment: NASOPHARYN Matt Jorge X BY OJ Sanaz WITH PROBE ([phone])
DETECTION Ordering Provider: TERE GRACIA
Report Released Date/Time: Apr 22, 2021 03:18 PM
Reporting Lab: MATIAS Perera [facility]
[address] [facility] [address]< br/> Performing Lab: MATIAS Perera [facility]
[address] [facility] [address]< br/> COVID-19 SARS-COV-2 Not 08 Specimen PHILLIP ATHAN & FLU (COVID-19) Detected /2020 Type: M. DIAGNOST RNA NASOPHARYNX [facility] IC PANEL [PRESENCE]
T [facility] ([facility] IN Comment: RESPIRATOR Matt Jorge Y SPECIMEN Sanaz BY OJ ([phone])
WITH PROBE Ordering DETECTION Provider: TERE GARCIA
Report Released Date/Time: Apr 22, 2021 03:18 PM
Reporting Lab: MATIAS Perera [facility]
[address] [facility] [address]< br/> Performing Lab: MATIAS Perera [facility]
[address] [facility] [address]< br/> VITAMIN 25-HYDROXY 24.2 30.0 - 100 02/09 L Specimen L EWISTON D VITAMIN D3 ng/mL /2020 Type: [facility] (25-HYDR [MASS/VOLU SERUM
OXY) ME] IN Comment: SERUM OR High doses PLASMA of Biotin supplements (>5 mg/day) may falsely increase Vitamin B-12, Vitamin D (25OH), Free T4, and Folate results. Test specimens should be collected at least 8 hrs after last ingestion of high dose biotin. LDL Direct Adult Reference Range: Optimal <100 mg/dL Near optimal/abo ve optimal 100-129 mg/dL Borderline high 130-159 mg/dL High 160-189 mg/dL Very High 190 mg/dL Note that non-fasting results may be slightly lower than fasting results. RESULTS CONFIRMED BY REPEAT TESTING. CALLED TO HELIO GARCIA@2879 02-10-21/NS READ BACK OF CRITICAL VALUES OCCURRED FOR ANGELA Juarez. CRITICAL RESULT KNOWN/REPOR JONA [phone] 02/10/21<br/ > Ordering Provider: TERE GARCIA
Report Released Date/Time: Nov 07, 2020 04:38 PM
Reporting Lab: MATIAS Perera [facility]
[address] [facility] [address]< br/> Performing Lab: MATIAS Perera [facility]
[address] [place] [phone]& lt;br/> Vital Signs Combined list of inpatient and outpatient Vital Signs from Department of Defense and [employer] Affairs, ranging from 12 months to all on record, depending upon the facility. Vital Sign Value Date Comments Source Systolic Blood Pressure 135mm[Hg] 09/19/2017 [facility] 17:[facility]:03 Diastolic Blood Pressure 85mm[Hg] 09/19/2017 [facility]03 Systolic Blood Pressure 115mm[Hg] 10/04/2017 [facility] 17:51:05 Diastolic Blood Pressure 82mm[Hg] 10/04/2017 [facility] 17:51:05 Systolic Blood Pressure 128mm[Hg] 01/10/2018 [facility] 19:55:01 Diastolic Blood Pressure 86mm[Hg] 01/10/2018 [facility] 19:55:01 Systolic Blood Pressure 134mm[Hg] 04/24/2018 [facility] 20:13:48 Diastolic Blood Pressure 85mm[Hg] 04/24/2018 [facility] 20:13:48 Systolic Blood Pressure 108mm[Hg] 05/03/2019 [facility] 15:38:55 Diastolic Blood Pressure 77mm[Hg] 05/03/2019 [facility] 15:38:55 Systolic Blood Pressure 128mm[Hg] 08/01/2018 [facility] 21:35:31 Diastolic Blood Pressure 82mm[Hg] 08/01/2018 [facility] 21:35:31 Systolic Blood Pressure 122mm[Hg] 01/11/2019 [facility] 19:51:19 Diastolic Blood Pressure 78mm[Hg] 01/11/2019 [facility] 19:51:19 Systolic Blood Pressure 114mm[Hg] 10/01/2019 [facility] 20:31:27 Diastolic Blood Pressure 72mm[Hg] 10/01/2019 [facility] 20:31:27 Systolic Blood Pressure 105mm[Hg] 02/22/2019 [facility] 16:22:33 Diastolic Blood Pressure 71mm[Hg] 02/22/2019 [facility] 16:22:33 Systolic Blood Pressure 112mm[Hg] 07/25/2019 [facility] 21:44:37 Diastolic Blood Pressure 69mm[Hg] 07/25/2019 [facility] 21:44:37 SYSTOLIC BLOOD PRESSURE 124mm[Hg] 06/29/2021 [facility] 13:04:09 DIASTOLIC BLOOD PRESSURE 84mm[Hg] 06/29/2021 [facility] 13:04:09 PULSE OXIMETRY 98% 06/29/2021 [facility] 13:04:09 WEIGHT 218[lb_av] 06/29/2021 [facility] 13:04:09 BMI 35kg/m2 06/29/2021 [facility] 13:04:09 PAIN 7 06/29/2021 [facility] 13:04:09 TEMPERATURE 97.8[degF] 06/29/2021 [facility] 13:04:09 PULSE 91/min 06/29/2021 [facility] 13:04:09 RESPIRATION 17/min 06/29/2021 [facility] 13:04:09 WEIGHT 224[lb_av] 02/23/2021 [facility] 14:04:00 BMI 36kg/m2 02/23/2021 [facility] 14:04:00 HEIGHT 66[in_us] 02/23/2021 [facility] 14:04:00 Encounters Combined list of: 1) Encounters from Department of Veterans Affairs facilities going back up to thelast 18 months, not all VA inpatient encounters are included; 2) Encounters from the Department of Defense facilities going backup to 280 months. Location Location Encounter Encounter Reason Attending ADM NM Stat us Disposition Source Details Type Number For Provider Date Date Visit Outpatient 03/23 MAHNAZ DAY Encounter [id number] N Dilma [facility] Outpatient 36922-9.68 GABINO HOLLY 03/25 JONATHA Encounter [id number] RISTIE /2019 N Marlen [facility] Outpatient 20405-903/26 [facility] Encounter [id number] N [place] 6 [facility] Outpatient 89554-004/17 MAHNAZ DAY Encounter [id number] N Dilma [facility] Outpatient 80741-504/20 [facility] Encounter [id number] N [place] 7 CLIN[facility] Outpatient 54229-804/21 MAHNAZ DAY Encounter [id number] Larry [facility] Outpatient 69577-0.68 04/26 MAHNAZ DAY Encounter [id number] /2019 Larry [facility] Outpatient 72235-9.68 04/30 MAHNAZ DAY Encounter [id number] /2019 Larry [facility] Outpatient 25183-8.68 04/30 MAHNAZ DAY Encounter [id number] /2019 Larry [facility] Outpatient 68361-9.68 Diagnos MARY GARCIA 05/06 [place] Encounter [id number] is: ON N [place] 8 ICD-10- CLINIC CM M51.36 Other interve rtebral disc degener ation, lumbar region< br/>wit h Provide r Comment s: Degener ation of lumbar interve rtebral disc (SNOMED CT 0911595 6) Outpatient 55646-4.68 05/11 MAHNAZ DAY Encounter [id number] /2019 Larry [facility] Outpatient 94677-3.68 05/11 MAHNAZ DAY Encounter [id number] /2019 Larry [facility] Outpatient 17823-6.68 05/11 MAHNAZ DAY Encounter [id number] /2019 Larry [facility] Outpatient 88209-6.68 05/27 MAHNAZ DAY Encounter [id number] /2019 Larry [facility] Outpatient 51404-1.68 06/10 MAHNAZ DAY Encounter [id number] /2019 Larry [facility] Outpatient 77975-4.68 06/10 MAHNAZ DAY Encounter [id number] /2019 Larry [facility] Outpatient 79742-6.68 06/11 MAHNAZ DAY Encounter [id number] /2019 Larry [facility] Outpatient 56535-1.68 06/21 MAHNAZ DAY Encounter [id number] /2019 Larry [facility] Outpatient 88797-8.68 06/25 MAHNAZ DAY Encounter [id number] Larry [facility] Outpatient 77041-8.68 06/25 MAHNAZ DAY Encounter [id number] /2019 Larry [facility] Outpatient 33163-7.68 07/06 MAHNAZ DAY Encounter [id number] /2019 Larry [facility] Wilman [facility] Outpatient 24596-3.68 07/20 MAHNAZ DAY Encounter [id number] Larry [facility] Outpatient 41400-6.68 07/21 MAHNAZ DAY Encounter [id number] /2019 Larry [facility] Outpatient 22127-4.68 08/10 MAHNAZ DAY Encounter [id number] Larry [facility] Outpatient 93120-2.68 TEETEE,TWIL 08/10 JONATHA Encounter [id number] A Larry [facility] Outpatient 35874-5.68 TEETEE,TWIL 08/12 JONATHA Encounter [id number] A Larry [facility] Outpatient 52787-7.68 TEETEE,TWIL 08/24 JONATHA Encounter [id number] A Larry [facility] Outpatient 19082-0.68 09/02 MAHNAZ DAY Encounter [id number] /2019 Larry [facility] Outpatient 57194-9.68 09/07 MAHNAZ DAY Encounter [id number] /2019 Larry [facility] Outpatient 60900-7.68 09/08 MAHNAZ DAY Encounter [id number] /2019 Larry [facility] Outpatient 25665-4.68 10/16 MAHNAZ DAY Encounter [id number] Larry [facility] Outpatient 83836-4.68 11/04 [facility] Encounter [id number] N [address] Outpatient 06024-0.68 11/07 MAHNAZ DAY Encounter [id number] Larry [facility] Outpatient 68472-3.68 11/07 MAHNAZ DAY Encounter [id number] N Dilma [facility] Outpatient 75827-2.12/02 MAHNAZ DAY Encounter [id number] N Dilma [facility] Outpatient 03535-4. 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
w ith Provide r Comment s: Major depress ion (SCT [id number] 00) Outpatient 63977-4.02/19 MAHNAZ DAY Encounter [id number] N Dilma [facility] OFFICE O/P 42313-7. Diagnos MARY GARCIA 02/23 [place] EST MOD [id number] is: [place] 30-39 MIN 3 ICD-10- CLINIC CM E11.8 Type 2 diabete s mellitu s with unspeci fied complic ations< br/>wit h Provide r Comment s: Diabete s mellitu s (SCT [id number] 9) Outpatient 83100-4.02/24 MAHNAZ DAY Encounter [id number] N Dil[facility] Diagnos SANGITA FISHR 03/05 L [place] PHONE CALL [id number] is: [place] N [place] 5-10 MIN 9 ICD-10- CLINIC CM Z71.89 Other specifi ed counselor manager ing<br/ >with Provide r Comment s: Wire Coiler ing,Oth Specifi ed Outpatient 03/05 MAHNAZ DAY Encounter [id number] /2021 N Dilma [facility] CASE Diagnos LION GUAMAN 03/10 [place] MANAGEMENT [id number] is: [place] 7 ICD-10- CLINIC CM Z65.9 Problem related to unspeci fied psychos ocial circums tances< br/>wit h Provide r Comment s: Problem Related to unspeci fied Psychos ocial Circums tances NUTRITIONA Diagnos REPLOGLE,J 03/10 [place] L [id number] is: [place] L N [place] COUNSELING 8 ICD-10- CLINIC , DIET CM Z71.3 Dietary counselor manager ing and surveil mariam<b r/>with Provide r Comment s: Dietary counselor manager ing and surveil mariam QNHP OL Diagnos MELDER,PEN 03/16 [place] DIG [id number] is: [place] ASSMT&MGMT 72 ICD-10- CLINIC 5-10 CM 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 ABEROMMEL 04/05 JONATHA Encounter [id number] I S /2020 N Dilma [facility] Outpatient 88871-8. ABEROMMEL 04/06 JONAT Encounter [id number] I S /2020 N Dilma [facility] Outpatient 30235-3.04/06 MAHNAZ DAY Encounter [id number] /2020 N Dilma [facility] Outpatient 51757-3. ABESANGITAR 04/12 JONAT Encounter [id number] I S /2020 N Dilma [facility] OFFICE O/P 56542-3 Diagnos ROMMEL FISH 04/22 [place] EST [id number].[id number] is: I S /2020 N [place] MINIMAL 82 ICD-10- CLINIC PROB CM Z11.52 Encount er for screeni ng for COVID-1 9
w ith Provide r Comment s: Screen for COVID-1 9 Outpatient 74114-004/23 [facility] 7. N Dilma [facility] HC PRO 97693-9 Diagnos ABEROMMEL 04/23 [place] PHONE CALL [id number] is: I S /2020 N VA 5-10 MIN 02 ICD-10- CLINIC CM Z71.89 Other specifi ed counselor manager ing<br/ >with Provide r Comment s: Wire Coiler ing,Oth Specifi ed Outpatient 80953-104/23 MAHNAZ [facility] Encounter [id number] /2021 N Dimla [facility] Outpatient 85416-2 Diagnos ADIEL MCDONALD 04/27 [place] Encounter [id number] is: M N [place] 02 ICD-10- CLINIC CM F33.9 Major depress tatyana disorde r, recurre nt, unspeci fied
with Provide r Comment s: Recurre nt major depress ion (SCT [id number] 7) Outpatient 09475-7.05/10 MAHNAZ DAY Encounter [id number] N Dilma [facility] Outpatient 21920-405/12 [place] Encounter [id number] N [facility] Outpatient 04970-1.05/17 MAHNAZ DAY Encounter [id number] N Dilma [facility] Outpatient 85166-605/26 MAHNAZ DAY Encounter [id number] N Dilma [facility] Outpatient 16191-7 ROSSTASHA 06/03 JONATHA Encounter [id number] RISTIE I /2020 N Dilma [facility] Outpatient 36384-706/04 MAHNAZ DAY Encounter [id number] N Dilma [facility] Outpatient 94863-006/05 MAHNAZ DAY Encounter [id number] N Dilma [facility] HC PRO 11726-1 Diagnos [facility]20 J ONATHA PHONE CALL [id number] is: [place] L /2020 N M. 5-10 MIN ICD-10- NHANINWRI CM GHT Z71.89 [facility] Other specifi ed counselor manager ing<br/ >with Provide r Comment s: Other specifi ed counselor manager ing Outpatient 74023-406/20 MAHNAZ DAY Encounter [id number] /2021 N Dilma [facility] OFFICE O/P 70811-5 Diagnos ROMMEL FISH 06/22 [place] EST [id number] is: I S /2020 N DE MINIMAL 29 ICD-10- CLINIC PROB CM Z04.9 Encount er for examina tion and observa tion for unsp reason< br/>wit h Provide r Comment s: Exam/Ob servati on for Unspec Reason Outpatient 98411-1 ROMMEL FISH 06/23 JONATHA Encounter [id number] I S N Dilma [facility]P 26691-9 Diagnos ARMIDA GALEAS 06/29 [place] EST SF [id number].[id number] is: RK L /2020 N VA 10- MIN ICD-10- CLINIC CM M51.36 Other interve rtebral disc degener ation, lumbar region< br/>wit h Provide r Comment s: Degener ation of lumbar interve rtebral disc (SCT [id number] 6) Outpatient 67678-3.06/30 MAHNAZ DAY Encounter [id number] N Dilma [facility] Outpatient 99053-8.07/01 MAHNAZ DAY Encounter [id number] /2020 N Dilma [facility] Outpatient 51746-7.07/01 MAHNAZ DAY Encounter [id number] N Dilma [facility] Outpatient 67413-8.07/07 MAHNAZ DAY Encounter [id number] /2020 N [facility] 81514-8.68 07/08 MAHNAZ DAY Encounter [id number] N [facility] 35269-8.68 07/09 MAHNAZ DAY Encounter [id number] /2020 N Dilma [facility] Outpatient 56505-9.07/15 MAHNAZ DAY Encounter [id number] /2020 N Dilma [facility] Outpatient 54832-8. ROMMEL FISH 07/15 JONATHA Encounter [id number] I N Dilma [facility] Outpatient 26314-8. MARY Sanchez 07/15 [place] Encounter [id number] is: ON E N [place] 31 ICD-10- CLINIC CM M51.36 Other interve rtebral disc degener ation, lumbar region< br/>wit h Provide r Comment s: Degener ation of lumbar interve rtebral disc (SCT 6000109 6) Outpatient 91341-1.07/16 MAHNAZ DAY Encounter [id number] N Dilma [facility] Outpatient 47202-807/16 MAHNAZ DAY Encounter [id number] N Dilma [facility] Outpatient 40278-3.07/16 MAHNAZ DAY Encounter [id number] N Dilma [facility] Outpatient 08964-9.07/30 MAHNAZ DAY Encounter [id number] N Dilma [facility] Outpatient 63149-808/02 MAHNAZ DAY Encounter [id number] N Dilma [facility] HC PRO 59167-9. Diagnos MELDER,PEN 08/04 [place] PHONE CALL [id number] is: [place] 21-30 MIN 60 ICD-10- CLINIC CM E11.65 Type 2 diabete s mellitu s with hypergl ycemia< br/>wit h Provide r Comment s: DM - Diabete s mellitu s (SCT 6301246 9) Outpatient 14227-908/09 MAHNAZ DAY Encounter [id number] N Dilma [facility] Outpatient 66185-7 Diagnos MARY GARCIA 08/10 [place] Encounter [id number].[id number] is: [place] 78 ICD-10- CLINIC CM M77.11 Lateral epicond ylitis, right elbow<b r/>with Provide r Comment s: Lateral epicond ylitis of right humerus (SNOMED CT 8647460 [id number] 7) HC PRO 11015-6. Diagnos MELDER,PEN 08/17 [place] PHONE CALL [id number] is: [place] 21-30 MIN 65 ICD-10- CLINIC CM E11.65 Type 2 diabete s mellitu s with hypergl ycemia< br/>wit h Provide r Comment s: DM - Diabete s mellitu s (SCT [id number] 9) [place] [address]-1. Diagnos RONNIE DUTTA 08/18 JONATHA DIG [id number] is: ILANA Barba /2020 N M. ASSMT&MGMT ICD-10- [facility] 5-10 CM GHT E11.8 [facility] Type 2 diabete s mellitu s with unspeci fied complic ations< br/>wit h Provide r Comment s: Diabete s mellitu s (SCT 5960423 9) HC PRO 72647-9.68 Diagnos MELDER,PEN 08/25 Ana JOHNSON PHONE CALL [id number] is: [place] 21-30 MIN 45 ICD-10- CLINIC CM E11.65 Type 2 diabete s mellitu s with hypergl ycemia< br/>wit h Provide r Comment s: DM - Diabete s mellitu s (SCT [id number] 9) Outpatient 98530-3.53 09/01 BOIS E Encounter [id number] /2021 [facility] Outpatient 08767-6.68 09/16 MAHNAZ DAY Encounter [id number] /2021 Larry KEATING [facility] Procedures Combined list of: 1) Procedures from Department of Veterans Affairs facilities going backup to the last 18 months, not all [place] non-surgical procedures are included; 2) All procedures from the Department of Defense facilities. Procedure Procedure Type Code Date Perfomer Comments Sourc e No data available [facility] Social History Combined list of available smoking, tobacco, and other social history [facility]. Social History Response Date Comment Source Type Tobacco smoking VA-TOBACCO FORMER 02/23/2021 [facility] status NHIS USER History of VA-TOBACCO QUIT < 1 02/23/2021 [facility] tobacco use YEAR History of VA-TOBACCO USE 07/25/2019 [facility] tobacco use [employer]STRU[employer] NO History of VA-TOBACCO USE WI 30 07/09/2018 [facility] tobacco use MIN OF WAKEUP History of TOBACCO MEDICATION 01/10/2018 [facility] tobacco use INTERVENTION History of TOBACCO SCREEN 09/19/2017 No, not willing [facility] tobacco use COMPLETED to quit now History of TOBACCO SCREEN 08/12/2016 Yes, willing to [facility] tobacco use COMPLETED quit now History of CURRENT TOBACCO USER 10/23/2013 [facility] tobacco use CENTER History of LIFETIME NON-USER OF 05/30/2013 [facility] tobacco use TOBACCO History of TOBACCO SCREEN 02/22/2012 No, not willing [facility] tobacco use COMPLETED to quit now History of LIFETIME NON-TOBACCO 10/11/2011 [facility] tobacco use USER History of TOBACCO MEDICATION 03/07/2011 [facility] tobacco use INTERVENTION History of TOBACCO SCREEN 02/25/2011 Yes, willing to [facility] tobacco use COMPLETED quit now History of TOBACCO MEDICATION 09/27/2010 [facility] tobacco use ORDERED History of CURRENT TOBACCO USER 09/02/2010 [facility] tobacco use CENTER History of TOBACCO MEDICATION 01/04/2010 [facility] tobacco use ORDERED History of CURRENT TOBACCO USER 01/07/2009 FIOR Perera tobacco use [facility] History of SMOKING CESSATION 04/26/2004 [facility] tobacco use REFUSED This section is DoD an empty social history section. Assessment and Plan Combined list of future care activities from Department of Defense and Veterans Affairs facilities (e.g., assessment and plan notes, appointments, orders, and referrals). Additional future care activities may be listed in the Plan of Care section. Result Assessment and Plan Date Source Assessment and Plan No data available for this 09/21/2021 [facility] section Plan of Care List of future care activities from Department of Veterans Affairs facilities. Additional future care activities may be listed in the Assessment and Plan section. Date/Time Care Activity Care Activity Detail Facility 09/20/2021 AMBULATORY - NONE AMBULATORY - NONE MATIAS Perera [facility] Functional Status Combined list of recent functional and cognitive assessments recorded at Department of Defense and Veterans Affairs (VA).VA Functional [place] Measurement (FIM) Scale: 1 = Total Assistance (Subject = 0% +), 2 = Maximal Assistance (Subject = 25% +), 3 = Moderate Assistance (Subject = 50% +), 4 = Mi nimal Assistance (Subject = 75% +), 5 = Supervision, 6 = Modified [place] (Device), 7 = Complete [place] (Timely, Safely). Assessment Source Assessment Type Assessment Assessment Assessmen t Date/Time Skill Score Details No data available for this section
--- OUTSIDE RECORDS SUMMARY | 2021-09-20 19:05 | External Medical Summary | Encounter Summary ---
:1980 Author Organization Department [facility] Address [address] [place] [address] Care Team Providers Name Role Phone CHARISSE GARCIA Primary Care Provider Unavailable Selected Encounter This section includes the information on record at [place] for the Encounter. Date/Time Encounter Type Encounter Description Reason Provider Source Dec 02, 2020 05:57 Outpatient Encounter [facility] PM CONSULT IHE Encounter Template Text not used by [place] Plan of Treatment: Future Appointments (+ 6 months) and Future Tests (+/- 45 days) The Plan of Treatment section includes future care activities for the patient from all [place] treatmentfacilities. This section includes future appointments and future orders which are active, pending orscheduled.Future Appointments This section includes appointments that were scheduled to occur 6 months from the date of the Encounter, up to a maximum of 20 appointments. The data comes from all [place] treatment facilities. Appointment Date/Time Appointment Type Appointment Facili ty Name February 09, 2021 11:15 AM AMBULATORY - MEDICINE [facility] Feb 16, 2021 02:30 PM AMBULATORY - MEDICINE [facility] Feb 18, 2021 11:00 AM AMBULATORY - PSYCHIATRY [facility] Feb 23, 2021 02:00 PM AMBULATORY - MEDICINE [facility] Mar 05, 2021 10:30 AM AMBULATORY - MEDICINE [facility] Mar 10, 2021 09:30 AM AMBULATORY - PS[facility]IATRY [facility] IN Mar 10, 2021 10:00 AM AMBULATORY - MEDICINE MATIAS MOYA [facility] Mar 16, 2021 11:00 AM AMBULATORY - MEDICINE [facility] Mar 24, 2021 09:30 AM AMBULATORY - PS[facility]IATRY [facility] IN Apr 22, 2021 03:15 PM AMBULATORY - MEDICINE [facility] Apr 23, 2021 02:30 PM AMBULATORY - MEDICINE [facility] Apr 27, 2021 07:30 AM AMBULATORY - PSYCHIATRY [facility] [place] Apr 29, 2021 02:00 PM AMBULATORY - MEDICINE MATIAS MarlenBianka [facility] Apr 29, 2021 02:30 PM AMBULATORY - MEDICINE [facility] May 12, 2021 02:31 PM AMBULATORY - MEDICINE [facility] Jun 04, 2021 03:00 PM AMBULATORY - MEDICINE [facility] Social History: Smoking Status (Most current) and Tobacco Use (All prior to encounter date) This section includes the most current, and the historical, smoking and tobacco-related health factors from the [facility] where the Encounter took place.Current Smoking Status This section includes the most current smoking, or tobacco-related health factor, from the [place] facility where the Encounter took place. Date/Time Current Smoking Status Comment Facility Jan 07, 2009 09:40 AM CURRENT TOBACCO USER EDGAR Perera [facility] Encounter Notes: All associated encounter notes This section contains the clinical notes associated to the Encounter. Date/Time Encounter Note(s) Provider Source Dec 02, 2020 05:57 PM ADMINISTRATIVE NOTE: MINI PHIPPS [facility] TITLE: ADMINISTRATIVE NOTE [facility] STANDARD TITLE: ADMINISTRATIVE NOTE DATE OF NOTE: DEC 02, 2020@17:57 ENTRY DATE: DEC 02, 2020@17:57:27 AUTHOR: MINI PHIPPS EXP COSIGNER: URGENCY: STATUS: COMPLETED Contacted to offer C OVID-19 VACCINATION; respectfully declined, if decides to schedu le please schedule, or transfer to [facility] or [facility] [employer] for scheduling. Thank you /elina/ MINI PHIPPS Advanced MSA Signed: 12/02/2020 17:58
--- OUTSIDE RECORDS SUMMARY | 2021-09-20 19:05 | External Medical Summary | Encounter Summary ---
:1980 Author Organization Department [facility] Address [address] [place] [id number] Care Team Providers Name Role Phone CHARISSE GARCIA Primary Care Provider Unavailable Selected Encounter This section includes the information on record at [place] for the Encounter. Date/Time Encounter Type Encounter Description Reason Provider Source Jun 30, 2021 10:55 Outpatient Encounter [facility] AM CONSULT I[facility] Encounter Template Text not used by [facility] Plan of Treatment: Future Appointments (+ 6 months) and Future Tests (+/- 45 days) The Plan of Treatment section includes future care activities for the patient from all [place] treatmentfacilities. This section includes future appointments and future orders which are active, pending orscheduled.Future Appointments This section includes appointments that were scheduled to occur 6 months from the date of the Encounter, up to a maximum of 20 appointments. The data comes from all [place] treatment facilities. Appointment Date/Time Appointment Type Appointment Facili ty Name Jul 01, 2021 08:00 AM AMBULATORY - NONE [facility] STEWARD [facility] Jul 07, 2021 07:00 AM AMBULATORY - NONE [facility]IAS STEWARD [facility] Jul 15, 2021 03:00 PM AMBULATORY - MEDICINE [facility] Jul 26, 2021 09:00 AM AMBULATORY - MEDICINE [facility] Aug 04, 2021 01:00 PM AMBULATORY - MEDICINE [facility] Aug 05, 2021 01:20 PM AMBULATORY - MEDICINE [facility] MO[facility] Aug 06, 2021 08:15 AM AMBULATORY - MEDICINE [facility] Aug 10, 2021 03:30 PM AMBULATORY - MEDICINE [facility] Aug 11, 2021 11:10 AM AMBULATORY - NONE MATIAS M. BIN [facility] Aug 17, 2021 03:00 PM AMBULATORY - MEDICINE [facility] Aug 24, 2021 02:00 PM AMBULATORY - NONE MATIAS Perera BIN [facility] Aug 25, 2021 01:00 PM AMBULATORY - MEDICINE [facility] Sep 20, 2021 09:00 AM AMBULATORY - NONE [facility]IAS M. BIN [facility] Oct 01, 2021 02:00 PM AMBULATORY - MEDICINE MATIASBAKARI MOYA [facility] Oct 01, 2021 03:00 PM AMBULATORY - NONE [facility] Active, Pending, and Scheduled Orders This section includes a listing of several types of active, pending, and scheduled orders, including clinic medications orders, diagnostic test orders, procedure orders and consult orders; where the start date of the order is 45 days before the date of the Encounter or 45 days after the date of the Encounter. The data comes from all [place] treatment facilities. Test Date/Time Test Type Test Details Facility Name Jul 26, 2021 10:07 PM Consult Order [facility]-NEUROSURGER Y 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 Date/Time Current Smoking Status Comment Facility Jan 07, 2009 09:40 AM CURRENT TOBACCO USER EDGAR Perera [facility] Encounter Notes: All associated encounter notes This section contains the clinical notes associated to the Encounter. Date/Time Encounter Note(s) Provider Source Jun 30, 2021 10:55 ADMINISTRATIVE NOTE: JENSEN ANN AM LOCAL TITLE: ADMINISTRATIVE NOTE [facility] STANDARD TITLE: ADMINISTRATIVE NOTE DATE OF NOTE: JUN 30, 2021@10:55 ENTRY DATE: JUN 30, 2021@10:55:59 AUTHOR: JENSEN ANN EXP COSIGNER: URGENCY: STATUS: COMPLETED Call placed to for scheduling with Rbuen Garvin [facility] [place] [facility] [employer] [place] has recently started a new job and is uncertain of her schedule at this time. She will call back in the future for sched uling. /es/ D MEHNAZ ANN MSA Signed: 06/30/2021 10:57
--- OUTSIDE RECORDS SUMMARY | 2021-09-20 19:06 | External Medical Summary ---
:1980 Author Organization Department [facility] Address [address] [place] [id number] Care Team Providers Name Role Phone CHARISSE BERMAN Primary Care Provider Unavailable Selected Encounter This section includes the information on record at [facility] for the Encounter. Date/Time Encounter Type Encounter Reason Provider Source Description Jun 29, 2021 OFFICE O/P EST PRIMARY ICD-10-CM M51.36 BARRY GALEAS 01:00 PM SF 10-19 MIN CARE/MEDICINE Other L intervertebral disc degeneration, lumbar region with Provider Comments: Degeneration of lumbar intervertebral disc ([facility] [id number]) IHE Encounter Template Text not used by [facility] Assessments - Encounter Diagnoses This section includes the primary and secondary diagnoses documented for the Encounter. Date/Time Primary/Secondary Diagnosis Name Provider Source Diagnosis Jul 01, 2021 PRIMARY Other intervertebral BARRY GALEAS [facility] 05:32 PM disc degeneration, CLINIC lumbar region Jul 01, 2021 SECONDARY Low back pain, BARRY GALEAS [facility] 05:32 PM unspecified CLINIC Plan of Treatment: Future Appointments (+ 6 months) and Future Tests (+/- 45 days) The Plan of Treatment section includes future care activities for the patient from all [facility] treatmentfacilities. This section includes future appointments and future orders which are active, pending orscheduled.Future Appointments This section includes appointments that were scheduled to occur 6 months from the date of the Encounter, up to a maximum of 20 appointments. The data comes from all [facility] treatment facilities. Appointment Date/Time Appointment Type Appointment Facili ty Name Jul 01, 2021 08:00 AM AMBULATORY - NONE MATIAS MBianka JUSTINRENEPAT [facility] Jul 07, 2021 07:00 AM AMBULATORY - NONE MATIAS GeeBianka STEWARD [facility] Jul 15, 2021 03:00 PM AMBULATORY - MEDICINE [facility] Jul 26, 2021 09:00 AM AMBULATORY - MEDICINE [facility] Aug 04, 2021 01:00 PM AMBULATORY - MEDICINE [facility] Aug 05, 2021 01:20 PM AMBULATORY - MEDICINE MATIAS MarlenBianka MOYA [facility] Aug 06, 2021 08:15 AM AMBULATORY - MEDICINE [facility] Aug 10, 2021 03:30 PM AMBULATORY - MEDICINE [facility] Aug 11, 2021 11:10 AM AMBULATORY - NONE MATIAS MBianka STEWARD [facility] Aug 17, 2021 03:00 PM AMBULATORY - MEDICINE [facility] Aug 24, 2021 02:00 PM AMBULATORY - NONE MATIAS MBianka STEWARD [facility] Aug 25, 2021 01:00 PM AMBULATORY - MEDICINE [facility] Sep 20, 2021 09:00 AM AMBULATORY - NONE MATIAS MBianka STEWARD [facility] Oct 01, 2021 02:00 PM AMBULATORY - MEDICINE MATIAS MBianka MOYA [facility] Oct 01, 2021 03:00 PM AMBULATORY - NONE [facility] Active, Pending, and Scheduled Orders This section includes a listing of several types of active, pending, and scheduled orders, including clinic medications orders, diagnostic test orders, procedure orders and consult orders; where the start date of the order is 45 days before the date of the Encounter or 45 days after the date of the Encounter. The data comes from all [facility] treatment facilities. 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 Date/Time Temperature Pulse Blood Respiratory SP02 Pain Height Weight Jonny dy Source Pressure Rate Mass Index Jun 29, 97.8 F 91 124/84 17 /min 98 % 7 218 lb 35 2020 01:04 /min mm[Hg] N [facility] PM CLINIC Immunizations: All administered on the encounter date This section contains immunizations associated to the Encounter. Immunization Series Date Issued Reaction Comments [id number]-[id number]-2 IMM REFUSAL - JSN CVX 212 R Jun 29, 2021 [id number]-UTL-2 IMM REFUSAL - MOD CVX 207 R Jun 29, 2021 [id number]-[id number]-2 IMM REFUSAL - UNS CVX 213 R Jun 29, 2021 [id number] VACCINE REFUSAL R Jun 29, 2021 Social History: Smoking Status (Most current) and Tobacco Use (All prior to encounter date) This section includes the most current, and the historical, smoking and tobacco-related health factors from the [facility] facility where the Encounter took place.Current Smoking Status This section includes the most current smoking, or tobacco-related health factor, from the [facility] facility where the Encounter took place. Date/Time Current Smoking Status Comment [facility] Feb 23, 2021 02:00 PM VA-TOBACCO FORMER USER [facility] Tobacco Use History This section includes a history of the smoking, or tobacco- related health factors, that were collected on or before the date of the Encounter. The data comes from the [facility] facility where the Encounter took place. 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 INTERVENTION Sep 19, 2017 09:33 AM CURRENT TOBACCO USER [facility] Sep 19, 2017 09:33 AM TOBACCO SCREEN COMPLETED [facility] No, not willing to quit now Aug 12, 2016 01:53 PM CURRENT TOBACCO USER [facility] Aug 12, 2016 01:53 PM TOBACCO MEDICATION [facility] REFERRAL Dilma CADET Aug 12, 2016 01:53 PM TOBACCO SCREEN COMPLETED [facility] Yes, willing to quit now May 30, 2013 11:04 AM LIFETIME NON-USER OF [facility] TOBACCO Feb 22, 2012 09:19 AM CURRENT TOBACCO USER [facility] Feb 22, 2012 09:19 AM TOBACCO SCREEN COMPLETED [facility] No, not willing to quit now Mar 07, 2011 11:32 AM TOBACCO MEDICATION [facility] INTERVENTION Feb 25, 2011 10:38 AM CURRENT TOBACCO USER Severity= MINIMAL ANA PAULA [facility] Feb 25, 2011 10:38 AM TOBACCO MEDICATION Severity= MINIMAL BRIT PEREZ [facility] REFERRAL DR HALEY Feb 25, 2011 10:38 AM TOBACCO SCREEN COMPLETED Severity= [facility] Yes, willing to quit now Sep 27, 2010 11:38 AM TOBACCO MEDICATION [facility] INTERVENTION Sep 27, 2010 11:38 AM TOBACCO MEDICATION ORDERED [facility] Jan 04, 2010 10:28 AM CURRENT TOBACCO USER [facility] Jan 04, 2010 10:28 AM TOBACCO MEDICATION [facility] INTERVENTION Jan 04, 2010 10:28 AM TOBACCO MEDICATION ORDERED [facility] Jan 04, 2010 10:28 AM TOBACCO MEDICATION [facility] REF[facility] DR. CANELA Encounter Notes: All associated encounter notes This section contains the clinical notes associated to the Encounter. Date/Time Encounter Note(s) Provider Source Jul 08, 2021 10:33 LETTERS: BARRY GALEAS [facility] Mone [facility]ANCOURT [facility] TITLE: PROVIDER LETTER STANDARD TITLE: LETTERS DATE OF NOTE: JUL 08, 2021@10:33 ENTRY DATE: JUL 08, 2021@10:33:12 AUTHOR: BARRY GALEAS EXP COSIGNER: URGENCY: STATUS: COMPLETED SUBJECT: Lumbar spine Mri results. PROVIDER LETTER Has ADDENDA IMAGING/TESTING PERFORMED: MRI LUMBAR SPINE ORDERING PROVIDER: HELIO tSewart DOS: 07.07.2021 Facility: [ ] - [facility] ([place], [place]) [X] - [facility] ([place]) [ ] - [facility] ([place], [place]) [ ] - [facility] ([place], [place]) [ ] - [facility] ([place]) [ ] - [facility] ([place], [place]) [ ] - [facility] ([place], [place]) [ ] - [facility] ([place], [place]) [ ] - Other Facility Finding(s): Lumbar spine is normal in curvature and alignmen t without significant escobar signal abnormality. Conus medullaris ends at T12 . Cauda equina roots are normal. No soft tissue abnormalities. The T11-T12 through L3-4 disc levels are unremar kable. No evidence of extrusion or protrusion. Central canal, lateral recesses and IV foramen are normal with at each of these levels. At L4-5, minimal broad disc protrusion a nd facet arthropathy results in slight impingement of the anterior thecal sac a nd mild to moderate right IV foraminal narrowing. There is slight impingement of the ex iting right L4 nerve root. This is progressed since last study. At the L5-S1, minimal broad disc protrusion and facet arthropathy result in slight impingement of the anterior thecal sac. T he central canal and IV foramen are normal with. Impression(s): L4-5: Mild broad disc protrusion and fac et arthropathy resulting in mild right IV foraminal narrowing. There is slight impingem ent of the exiting right L4 nerve root. This is progressed since last study. /elina/ BARRY GALEAS Nurse Practitioner Signed: 07/08/2021 10:37 Receipt Acknowledged By: 07/08/2021 11:02 /elina/ VERÓNICA FISH RN 07/08/2021 ADDENDUM STATUS: COMPLETED PLEASE CONTACT AND INFORM HER OF THE RES ULTS NOTED ABOVE. NEXT STEP I WOULD RECOMMEND A REFERRAL TO SEE A ELECTRICIAN CONTROL EQUIPMENT. IF SHE'S AGREEABLE, THEN A REFERRAL FOR NEUROSURGERY CAN BE SUBMITTED FOR MY SIGNING. IF NOT, SHE THEN SHOULD BE SCHEDULED A F/UP APPT WITH PRIMARY PCP TO FURTHER DISCUSS THESE RESULTS & STEPS IN PLAN OF CARE. /elina/ BARRY GALEAS Nurse Practitioner Signed: 07/08/2021 10:40 Receipt Acknowledged By: 07/08/2021 11:02 /elina/ VERÓNICA FISH RN 07/08/2021 ADDENDUM STATUS: COMPLETED VET NOTIFIED OF ABOVE VIA SECURE MESSAGE /tammie FISH RN Signed: 07/08/2021 11:05 Jun 29, 2021 01:46 PRIMARY CARE E & M NOTE: BARRY GALEAS [facility] LOCAL TITLE: PRIMARY CARE PROVIDER NOTE STANDARD TITLE: PRIMARY CARE E & M NOTE DATE OF NOTE: JUN 29, 2021@13:46 ENTRY DATE: JUN 29, 2021@13:46:08 AUTHOR: BARRY GALEAS EXP COSIGNER: URGENCY: STATUS: COMPLETED SUBJECT: ER f/up related to acute on chronic LB Janelle 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 Patient identification confirmed by the followin g items: Full Name, Date of , & SSN prior to intervi ew and examination. Hand washing is completed prior to interview and examination. Both [place] [facility] Provider & Staff adhered to Covid-19 recomm ended precautions & safety measures as per [facility] policies & procedures. Protec tive face masks were worn throughtout this appointment. VITAL SIGNS: Blood Pressure: 124/84 (06/29/2021 13:04) Respiration: 17 (06/29/2021 13:04) Temperture: 97.8 F [36.6 C] (06/29/2021 13:04) Weight: 218 lb [99.1 kg] (06/29/2021 13:04) Pulse: 91 (06/29/2021 13:04) Pain Ratin (06/29/2021 13:04) ALLERGIES: GLIPIZIDE, METFORMIN Allergies reviewed with patient and/or guardian. Chief Complaint: f/up from 06.20.2021 ER visit fo r acute on chronic LBP. History of Present Illness: EMILEE COMES IN TODAY FOR F/UP ON RECEN T [facility] ER VISIT 06.18.2021 FOR ACUTE ON CLBP. STATES SHE WAS SUPPOSED TO OBTAIN AN MRI, BUT REVIEW OF THE NOTES IT APPEARS THE PROVIDER STATED DIFFERENTLY. TODAY, EMILEE IS USING A CANE FOR STABILITY. IN SIGNIFICANT PAIN/DISCOMFOR T MANUEVERING AROUND THE EXAM ROOM AND STATES THAT SHE'S STILL EXPE RIENCING NUMBNESS/TINGLING DOWN INTO HER RLE, WHICH TODAY SHE REPORTS CONTINUES W/O CHANGES, IF FACT STATES MAYBE A LITTLE WORSE. HAS HX OF CLBP. LAST MRI WAS FEBRUARY 2020 T HAT SHOWED ABNORMALITIES AT THAT TIME. REPORTS PT HAS BEEN TRIALED M AKES THE CLBP WORSE. Computerized Problem List is the source for the followin. Decreased vitamin D 2. Degeneration of lumbar intervertebral disc 3. Right hip pain 4. Major depression 5. Ca cervix - screening done, Onset 05/02/162014 neg pap and P HPN, [address] Codi james, 03/2021 [place] pending 6. Pseudotumor cerebri, Onset 02/01/19 [place] [facility] sent referral to [place] urologist ROBERT 7. Anaphylaxis due to ingested food, Onset 11/16/[address] Lassiter food allergies 8. Acute otitis media 9. Sprain of right ankle 10. Knee injury 05/24/2017 MRI right knee microtrabecular fractur e, bone marrow edema medial right tibia, bone bruise 11. Pain in right knee 12. Ankle joint pain, Onset 08/15/16 X ray 07/2018 6mm ossification medial ankle loo se body post old avulsion fx off medial talar, done age undetermined, spur talar neck, possible impingement and mod effusion [place] X ray 13. Acute sinusitis 14. Nicotine dependence 15. Pain in pelvis 16. Female pelvic inflammatory disease 17. HPV - Human papillomavirus test positive 18. Chronic sinusitis 19. Allergic rhinitis 20. Migraine, Onset 01/14/16 21. Viral meningitis, Onset 01/14/16 22. Acute sinusitis 23. DM - Diabetes mellitus 24. Hyperlipidemia 25. Ureteric stone, Onset 12/04/14 2 stones left ureter 12/04/2014 small non obstructing stones in bilat kidneys 26. Hypertriglyceridemia 27. Microscopic hematuria 28. Borderline personality disorder (SNOMED CT ) 29. Sprain of metacarpophalangeal joint, Onset 01/02/14 Xray 4/17/14 no fx finger joint ER, Dx jont wagner n Etodolac tx 30. Menorrhagia (SNOMED CT 900650595) 31. Influenza, Onset 09/29/13 Tamiflu given [facility] 32. Contraception (SNOMED CT 99951846) 33. Recurrent major depression (SNOMED CT 31841894) 34. Benign intracranial hypertension (SNOMED CT 91268985) 35. Papilledema associated with increased intracranial pressure (ICD-9-CM 377.01) 36. Neck Pain (ICD-9-CM 723.1) Only has this with migraines 37. Diabetes mellitus (SNOMED CT 59722657) dx 2005,actos 38. Low back pain (SNOMED CT 149529041) resolved with PT X ray mild DJD facets L4-5 X ray [facility] 03/22/2018 39. Knee: arthralgia no current pain 40. Migraine, unspecified, without mention of Intractable Migraine without mention o tried topamax,zomig-gabapentin started 12/25 Active and Recently Outpatient Medicatio ns (including Supplies): Active Outpatient Medications Status 1) ACCU-CHEK GUIDE (GLUCOSE) TEST STRIP USE ONE STRIP ACTIVE THREE TIMES A DAY NEEDED FOR BLOOD GLUCOSE TESTING 2) ACETAZOLAMIDE 500MG SA CAP TAKE TWO CAPSULES BY MOUTH ACTIVE TWICE A DAY TO DECREASE THE SWELLING OF THE OPT IC NERVE (PSEUDOTUMOR CEREBRI) * DOSAGE HAS BEEN VERIFIED WITH DR CANELA 3) CHOLECALCIF 50MCG (D3-2,000UNIT) TAB TAKE TWO TABLETS ACTIVE (S) BY MOUTH EVERY DAY FOR VITAMIN D SUPPLEMENT. INCREASED DOSAGE 4) CODEINE 60MG/ACETAMINOPHEN 300MG TAB TAKE 2 T ABLETS ACTIVE BY MOUTH EACH MORNING NEEDED AND TAKE 1 TABL ET AT BEDTIME FOR PAIN 5) DICLOFENAC NA 1% TOP GEL APPLY 2-4 GRAMS D IRECTED ACTIVE TO AFFECTED AREA FOUR TIMES A DAY NEEDED FOR PAIN * LIMIT DAILY DOSE TO 8 GRAMS TO UPPER BOD Y AND 16 GRAMS TO LOWER BODY 6) DULOXETINE HCL 60MG EC CAP TAKE ONE CAPSULE B Y MOUTH ACTIVE AT BEDTIME FOR NERVE PAIN 7) ETODOLAC 500MG TAB TAKE ONE TABLET BY MOUTH T WICE A ACTIVE DAY FOR PAIN TAKE WITH FOOD 8) FLUOXETINE HCL 20MG CAP TAKE FOUR CAPSULES BY MOUTH ACTIVE EVERY MORNING FOR DEPRESSION/MOOD 9) GABAPENTIN 300MG CAP TAKE TWO CAPSULES BY SAPPHIRE TH THREE ACTIVE TIMES A DAY NEEDED FOR NERVE PAIN 10) GUAIFENESIN 600MG SA TAB TAKE ONE TABLET BY MOUTH ACTIVE (S) TWICE A DAY FOR CONGESTION 11) INSULIN,ASPART 100UN/ML CARRIE FLEXPEN 3ML INJ ECT 15 ACTIVE UNITS UNDER SKIN AT NOON FOR DIABETES . TAKE 10 MINUTES PRIOR TO YOUR LUNCH. 12) INSULIN,ASPART 70/30 NOVOLOG FLEXPEN 3ML INJ ECT 60 ACTIVE UNITS UNDER SKIN TWICE A DAY WITH MEALS OR DIRECTED BY CLINICAL PHARMACIST FOR DIABETES 13) LORATADINE 10MG TAB TAKE ONE TABLET BY MOUTH EVERY ACTIVE DAY FOR ALLERGIES 14) MULTIVITAMIN, ICAPS MV TAB,EC TAKE 1 CAPSULE BY MOUTH ACTIVE EVERY MORNING FOR VITAMIN SUPPLEMENT 15) NALOXONE HCL 4MG/SPRAY SOLN NASAL SPRAY SPRA Y ONE ACTIVE DOSE IN NOSE DIRECTED NEEDED FOR ACCIDENT AL OPIOID (PAIN MEDICATION) OVERDOSE, MAY REPEAT I N OTHER NOSTRIL IN 3-5 MINUTES IF NEEDED, CALL [phone] 16) NEEDLE,PEN 31G,8MM USE NEEDLE DIRECTED ACTIVE NEEDED FOR USE WITH INSULIN PEN INJECTIONS 17) PROPRANOLOL 40MG TAB TAKE ONE TABLET BY MOUT H EVERY ACTIVE (S) DAY TO PREVENT MIGRAINES * NOTIFY PROVIDER IF OR MAY BECOME 18) ROSUVASTATIN CA 20MG TAB TAKE ONE TABLET BY MOUTH ACTIVE (S) EVERY DAY FOR CHOLESTEROL 19) TIZANIDINE HCL 4MG TAB TAKE 1 TO 2 TABLETS ( 4-8MG) BY ACTIVE (S) MOUTH UP TO THREE TIMES A DAY FOR MUSCLE SPASM 20) VARENICLINE 1MG TAB TAKE ONE TABLET BY MOUTH TWICE A ACTIVE DAY FOR TOBACCO CESSATION Active Non-VA Medications Status 1) Non-VA ACETAMINOPHEN 250/ASA 250/CAFF 65MG TA B 2 ACTIVE TABLETS BY MOUTH EVERY DAY NEEDED 2) Non-VA AMOXICILLIN 875/CLAV K 125MG TAB 1 TAB LET BY ACTIVE MOUTH TWICE A DAY 3) Non-VA MULTIVITAMIN W/MINERALS CAP/T AB ACTIVE NATURE MADE DAILY DIABETES HEALTH PACK BY MOUTH EVERY DAY 4) Non-VA NO NON-VA MEDICATION MISCELLANEOUS VIT APONTE C, ACTIVE E, AND BIOTIN (HAIR SKIN AND NAILS VITAMIN) EVERY DAY 5) Non-VA PREDNISONE 20MG TAB 40MG BY MOUTH EVER Y DAY ACTIVE 25 Total Medications No Active Remote Medications for this patient Notes: Medication reconciliation was completed a t this visit. ROS: Constitutional: No fever, chills, sweats or beverly ght loss. HEENT: No changes in vision or hearing, no head aches. 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 CVS: No chest pain, no orthopnea or leg edema Resp: No SOB, no chronic cough or phlegm, no he moptysis GI: No chronic diarrhea or constipation, colono scopy: see reminder : No frequency, urgency, hesitancy, dysuria, hematuria or incontinence. MUSK: SEE HPI. Skin: Rash, bruising, itching, dryness, new or changing moles, lesions. Neuro: No loss of sensation, numbness, tremors or weakness. Psychiatric: No changes in mood, depression or anxiety. Reproductive: No reported concerns. Rectal: No reported concerns. OBJECTIVE: CURRENT VITAL: Temperature: 97.8 F [36.6 C] (06/29/2021 13:04) Respirations: 17 (06/29/2021 13:04) Pulse: 91 (06/29/2021 13:04) Blood Pressure: 124/84 (06/29/2021 13:04) Weight: 218 lb [99.1 kg] (06/29/2021 13:04) Height: 66 in [167.6 cm] (02/23/2021 14:04) BMI: BMI: 35 SAO2: 98% DATE: Jun@13:04:37 Pain: 7 (06/29/2021 13:04) GA - alert, oriented x3, well developed, in no d istress, mentally clear and cooperative HEENT - normal cephalic Eyes - no pallor or icterus, pupils equal and ro und, normal light reflex Ears - TM intact Nose - no perforated septum Mouth - no lesions Throat - clear pharynx Neck - thyroid normal, no adenopathy, carotids: full, no JVD Chest - clear to auscultation bilaterally, giancarlo l resp effort. Heart - regular rhythm, without murmur or gallop , no rub Abdomen- active bowel sounds, no organomegaly, n o masses, no tenderness Extremities - no edema or deformities, no muscle wasting MUSCULOSKELETAL: UPPER EXTREMITIES: Normal LOWER EXTREMITIES: Normal NEURO/SENSORY/MOTOR EXAM(s) OF THE LOWER EXTREMI TIES: POSITIVE straight leg raise OF THE RLE. Equal strength, sensation and reflexes bilaterally. SPINE: LUMBAR SPINE EXAM: Abnormal Significant Findings: Muscle Strength & Resistance is Abnormal with mo derate pain Lumbar spine w/ noted with Limited AROM/PROM. Pain was noted w/ AROM & against resistance YES. 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 DTR: normal Gait - ABnormal w/ CANE assistive device. Psych: Oriented to person, place, and time. Mood & affect normal. Recent and remote memory normal, judgment giancarlo l. Reproductive: Deferred. Rectal: Deferred. Diagnosis: 1) ACUTE ON CHRONIC LBP. Plan of Care: ADVISED ON PAIN CONTROL. REFERRAL FOR MRI OF THE LUMBAR SPINE. REQUESTING IT TO BE SET URGENT. was advised during todays visit to bam emerson w/ current plan of care, except for stated changes above, which have been discussed w/ the the during today's appointment. Todays orders: Item Ordered START DATE STOP DATE ENTERED MRI A/FEE BASED OUTSID JUN 29, 2021 JUN 29, 2021 @13:34:13 I reviewed patient's plan of care with patient w ho verbalized understanding of recommendations and any/all changes as detail ed in plan above. I have reviewed all imported/copied information and it is up to date, accurate and relevant to today's visit. I reviewed medication list with patient, it is u p to date as of this appointment, a printed copy will be given to the patient/caregiver and the patient/caregiver understood my instructions. The above was discussed with the who sta becky understanding and agreement with current plan. Questions sought an d answered during this visit. Return To Clinic: Is in recall.and as needed. Time Spent: 18 minutes was the total amount of t jayesh that was spent in counseling & coordination of 's care associated with today's visit. /elina/ BARRY GALEAS Nurse Practitioner Signed: 07/01/2021 17:32 Jun 29, 2021 01:08 PRIMARY CARE NURSING NOTE: MEY RAY 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 Hand washing is completed prior to interview and examination. Age:41 Height:66 in [167.6 cm] (02/23/2021 14:04) Weight:218 lb [99.1 kg] (06/29/2021 13:04) VITALS Temperature:97.8 F [36.6 C] (06/29/2021 13:04) BP:124/84 (06/29/2021 13:04) Pulse:91 (06/29/2021 13:04) Resp:17 (06/29/2021 13:04) SpO2:98% DATE: Jun@13:04:37; [X]On room air [ ]On L/min. 02 BMI:35* PAIN (scale 0-10):7 (06/29/2021 13:04) Is this pain level tolerable? No Pain Location:03/27 lower back CC:Charisse Berman is PCP Allergies/ADR: GLIPIZIDE, METFORMIN Allergy list correct (if no, update)? Yes MEDICATION RECONCILIATION Patient taking ASA? No Medication information in the form of a Interview was obtained from the Patient and compared to the medications listed for the p atient in CPRS including: Active and Recently Outpatient Medicatio ns (excluding Supplies): Active Outpatient Medications Status 1) ACCU-CHEK GUIDE (GLUCOSE) TEST STRIP USE ONE STRIP ACTIVE THREE TIMES A DAY NEEDED FOR BLOOD GLUCOSE TESTING 2) ACETAZOLAMIDE 500MG SA CAP TAKE TWO CAPSULES BY MOUTH ACTIVE TWICE A DAY TO DECREASE THE SWELLING OF THE OPT IC NERVE (PSEUDOTUMOR CEREBRI) * DOSAGE HAS BEEN VERIFIED WITH DR CANELA 3) CHOLECALCIF 50MCG (D3-2,000UNIT) TAB TAKE TWO TABLETS ACTIVE (S) BY MOUTH EVERY DAY FOR VITAMIN D SUPPLEMENT. INCREASED DOSAGE 4) CODEINE 60MG/ACETAMINOPHEN 300MG TAB TAKE 2 T ABLETS ACTIVE BY MOUTH EACH MORNING NEEDED AND TAKE 1 TABL ET AT BEDTIME FOR PAIN 5) DICLOFENAC NA 1% TOP GEL APPLY 2-4 GRAMS D IRECTED ACTIVE TO AFFECTED AREA FOUR TIMES A DAY NEEDED FOR PAIN * LIMIT DAILY DOSE TO 8 GRAMS TO UPPER BOD Y AND 16 GRAMS TO LOWER BODY 6) DULOXETINE HCL 60MG EC CAP TAKE ONE CAPSULE B Y MOUTH ACTIVE AT BEDTIME FOR NERVE PAIN 7) ETODOLAC 500MG TAB TAKE ONE TABLET BY MOUTH T WICE A ACTIVE DAY FOR PAIN TAKE WITH FOOD 8) FLUOXETINE HCL 20MG CAP TAKE FOUR CAPSULES BY MOUTH ACTIVE EVERY MORNING FOR DEPRESSION/MOOD 9) GABAPENTIN 300MG CAP TAKE TWO CAPSULES BY SAPPHIRE TH THREE ACTIVE TIMES A DAY NEEDED FOR NERVE PAIN 10) GUAIFENESIN 600MG SA TAB TAKE ONE TABLET BY MOUTH ACTIVE (S) TWICE A DAY FOR CONGESTION 11) INSULIN,ASPART 100UN/ML CARRIE FLEXPEN 3ML INJ ECT 15 ACTIVE UNITS UNDER SKIN AT NOON FOR DIABETES . TAKE 10 MINUTES PRIOR TO YOUR LUNCH. 12) INSULIN,ASPART 70/30 NOVOLOG FLEXPEN 3ML INJ ECT 60 ACTIVE UNITS UNDER SKIN TWICE A DAY WITH MEALS OR DIRECTED BY CLINICAL PHARMACIST FOR DIABETES 13) LORATADINE 10MG TAB TAKE ONE TABLET BY MOUTH EVERY ACTIVE DAY FOR ALLERGIES 14) MULTIVITAMIN, ICAPS MV TAB,EC TAKE 1 CAPSULE BY MOUTH ACTIVE EVERY MORNING FOR VITAMIN SUPPLEMENT 15) NALOXONE HCL 4MG/SPRAY SOLN NASAL SPRAY SPRA Y ONE ACTIVE DOSE IN NOSE DIRECTED NEEDED FOR ACCIDENT AL OPIOID (PAIN MEDICATION) OVERDOSE, MAY REPEAT I N OTHER NOSTRIL IN 3-5 MINUTES IF NEEDED, CALL [phone] 16) PROPRANOLOL 40MG TAB TAKE ONE TABLET BY MOUT H EVERY ACTIVE (S) DAY TO PREVENT MIGRAINES * NOTIFY PROVIDER IF OR MAY BECOME 17) ROSUVASTATIN CA 20MG TAB TAKE ONE TABLET BY MOUTH ACTIVE (S) EVERY DAY FOR CHOLESTEROL 18) TIZANIDINE HCL 4MG TAB TAKE 1 TO 2 TABLETS ( 4-8MG) BY ACTIVE (S) MOUTH UP TO THREE TIMES A DAY FOR MUSCLE SPASM 19) VARENICLINE 1MG TAB TAKE ONE TABLET BY MOUTH TWICE A ACTIVE DAY FOR TOBACCO CESSATION Active Non-VA Medications Status 1) Non-VA ACETAMINOPHEN 250/ASA 250/CAFF 65MG TA B 2 ACTIVE TABLETS BY MOUTH EVERY DAY NEEDED 2) Non-VA AMOXICILLIN 875/CLAV K 125MG TAB 1 TAB LET BY ACTIVE MOUTH TWICE A DAY 3) Non-VA MULTIVITAMIN W/MINERALS CAP/T AB ACTIVE NATURE MADE DAILY DIABETES HEALTH PACK BY MOUTH EVERY DAY 4) Non-VA NO NON-VA MEDICATION MISCELLANEOUS VIT APONTE C, ACTIVE E, AND BIOTIN (HAIR SKIN AND NAILS VITAMIN) EVERY DAY 5) Non-VA PREDNISONE 20MG TAB 40MG BY MOUTH EVER Y DAY ACTIVE 24 Total Medications No Active Remote Medications for this patient IDENTIFIED MEDICATION DISCREPANCIES INCLUDED AND PROVIDER NOTIFIED: None, the patient is only taking the medication s listed in CPRS as prescribed. Defer to provider Clinical Reminders Done Today COVID-19 Immunization: Refused Moderna COVID-19 vaccine as of today Refused Serafin COVID-19 vaccine as of today Refuses all COVID-19 vaccines (current and futu re) Influenza Immunization: See orders. Travel and Symptom Screen: The patient indicated that they and their close contacts have not traveled outside of the [place] in the past 21 day s. The patient reports the following symptoms: No symptoms present The patient is not immunocompromised. The patient does not report having a history of Multi Drug Resistant Organism (MDRO) within the last five years. The patient does not report having been exposed to measles, chickenpox, or zoster in last 30 days. /es/ MEY Faria Lingorami Signed: 06/29/2021 13:14 06/29/2021 ADDENDUM STATUS: COMPLETED Provider ordered MRI. Forwarding to [place] Team RN for tracking in CM tool. /es/ SARI NEWMAN LPN Signed: 06/29/2021 14:09 Receipt Acknowledged By: * AWAITING SIGNATURE * VERÓNICA FISH
--- OUTSIDE RECORDS SUMMARY | 2021-09-20 19:06 | External Medical Summary | Encounter Summary ---
:1980 Author Organization Department [facility] Address [address] [place] [id number] Care Team Providers Name Role Phone GARCIAMARYON Primary Care Provider Unavailable Selected Encounter This section includes the information on record at [place] for the Encounter. Date/Time Encounter Type Encounter Reason Provider Source Description Jun 23, 2021 05:37 Outpatient PRIMARY VERÓNICA FISH PM Encounter CARE/MEDICINE IHE Encounter Template Text not used by [place] Plan of Treatment: Future Appointments (+ 6 months) and Future Tests (+/- 45 days) The Plan of Treatment section includes future care activities for the patient from all [place] treatmentfacilities. This section includes future appointments and future orders which are active, pending orscheduled.Future Appointments This section includes appointments that were scheduled to occur 6 months from the date of the Encounter, up to a maximum of 20 appointments. The data comes from all [place] treatment facilities. Appointment Date/Time Appointment Type Appointment Facili ty Name Jun 29, 2021 01:00 PM [facility] Jul 01, 2021 08:00 AM AMBULATORY - NONE [facility] Jul 07, 2021 07:00 AM AMBULATORY - NONE [facility] Jul 15, 2021 03:00 PM [facility] Jul 26, 2021 09:00 AM [facility] Aug 04, 2021 01:00 PM [facility] Aug 05, 2021 01:20 PM AMBULATORY - MEDICINE [facility] Aug 06, 2021 08:15 AM [facility] Aug 10, 2021 03:30 PM [facility] Aug 11, 2021 11:10 AM AMBULATORY - NONE [facility] Aug 17, 2021 03:00 PM [facility] Aug 24, 2021 02:00 PM AMBULATORY - NONE [facility] Aug 25, 2021 01:00 PM [facility] Sep 20, 2021 09:00 AM AMBULATORY - NONE [facility] Oct 01, 2021 02:00 PM AMBULATORY - MEDICINE [facility] Oct 01, 2021 03:00 PM AMBULATORY - NONE [facility] Active, Pending, and Scheduled [...] the Encounter. The data comes from all [place] treatment facilities. 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 Date/Time Current Smoking Status Comment Facility Jan 07, 2009 09:40 AM [facility] Encounter Notes: All associated encounter notes This section contains the clinical notes associated to the Encounter. Date/Time Encounter Note(s) Provider Source Jun 23, 2021 05:37 PM PRIMARY CARE SECURE MESSAGING: VERÓNICA FISH [facility] LOCAL TITLE: PRIMARY CARE SECURE MESSAGING STANDARD TITLE: PRIMARY CARE SECURE MESSAGING DATE OF NOTE: JUN 23, 2021@17:37:44 ENTRY DATE: JUN 23, 2021@14:37:45 AUTHOR: VREÓNICA FISH EXP COSIGNER: URGENCY: STATUS: COMPLETED ------Original Message Sent: 06/23/2021 05:37 PM From: VERÓNICA FISH To: JUAN CARLOSBARBARA SOMERS Subject: General Inquiry hello, upon discussing your case with vinnie couch and [facility] is not going to order an MRI right now, ER did not recommend an MRI at this point in time and denia feels its reasonable to offer you physical therapy if you agree to this. Pleas e secure message back with your agreement or denial for PT. thanks Guillermo JACKMAN /elina/ VERÓNICA FISH RN Signed: 06/23/2021 14:37
--- OUTSIDE RECORDS SUMMARY | 2021-09-20 19:07 | External Medical Summary | Encounter Summary ---
:1980 Author Organization Department [facility] Address [address] [place] [address] Care Team Providers Name Role Phone MARY BERMANON Primary Care Provider Unavailable Selected Encounter This section includes the information on record at [place] for the Encounter. Date/Time Encounter Type Encounter Reason Provider Source Description Jun 20, 2021 HC PRO PHONE TELEPHONE TRIAGE ICD-10-CM Z71.89 Liyah RUELAS 01:24 PM CALL 5-10 MIN Other specified counseling with Provider Comments: Other specified counseling IHE Encounter Template Text not used by [place] Assessments - Encounter Diagnoses This section includes the primary and secondary diagnoses documented for the Encounter. Date/Time Primary/Secondary Diagnosis Name Provider Source Diagnosis Jun 20, 2021 PRIMARY Other specified CHERELLE RUELAS 01:24 PM counseling [facility] Plan of Treatment: Future Appointments (+ 6 months) and Future Tests (+/- 45 days) The Plan of Treatment section includes future care activities for the patient from all [place] treatmentfacilities. This section includes future appointments and future orders which are active, pending orscheduled.Future Appointments This section includes appointments that were scheduled to occur 6 months from the date of the Encounter, up to a maximum of 20 appointments. The data comes from all [place] treatment facilities. Appointment Date/Time Appointment Type Appointment Facili ty Name Jun 22, 2021 08:30 AM AMBULATORY - MEDICINE [facility] Jun 29, 2021 01:00 PM AMBULATORY - MEDICINE [facility] Jul 01, 2021 08:00 AM AMBULATORY - NONE [facility] Jul 07, 2021 07:00 AM AMBULATORY - NONE [facility] MBian[facility] Jul 15, 2021 03:00 PM AMBULATORY - MEDICINE [facility] Jul 26, 2021 09:00 AM AMBULATORY - MEDICINE [facility] Aug 04, 2021 01:00 PM AMBULATORY - MEDICINE [facility] Aug 05, 2021 01:20 PM AMBULATORY - MEDICINE [facility] Aug 06, 2021 08:15 AM AMBULATORY - MEDICINE [facility] Aug 10, 2021 03:30 PM AMBULATORY - MEDICINE [facility] Aug 11, 2021 11:10 AM AMBULATORY - NONE [facility] Aug 17, 2021 03:00 PM AMBULATORY - MEDICINE [facility] Aug 24, 2021 02:00 PM AMBULATORY - NONE [facility] Aug 25, 2021 01:00 PM AMBULATORY - MEDICINE [facility] Sep 20, 2021 09:00 AM AMBULATORY - NONE [facility] Oct 01, 2021 02:00 PM AMBULATORY - MEDICINE [facility] Oct 01, 2021 03:00 PM AMBULATORY - NONE [facility] Active, Pending, and [...] the Encounter. The data comes from all [place] treatment facilities. Test Date/Time Test Type Test Details Facility Name Jul 26, 2021 10:07 PM Consult Order COMMUNITY CARE-NEUROSURGER Y 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 Social History: Smoking Status (Most current) and Tobacco Use (All prior to encounter date) This section includes the most current, and the historical, smoking and tobacco-related health factors from the [place] facility where the Encounter took place.Current Smoking Status This section includes the most current smoking, or tobacco-related health factor, from the [place] facility where the Encounter took place. Date/Time Current Smoking Status Comment Facility Jan 07, 2009 09:40 AM CURRENT TOBACCO USER [facility] Encounter Notes: All associated encounter notes This section contains the clinical notes associated to the Encounter. Date/Time Encounter Note(s) Provider Source Jun 20, 2021 01:24 PM TELEHEALTH NOTE: CHERELLE RUELAS [facility] [employer] TITLE: NURSE TELEHEALTH [facility] STANDARD TITLE: TELEHEALTH NOTE DATE OF NOTE: JUN 20, 2021@13:24:17 ENTRY DATE: JUN 20, 2021@13:38:24 AUTHOR: CHERELLE RUELAS EXP COSIGNER: URGENCY: STATUS: COMPLETED Type of call: DTN SYMPTOM . PCMM Provider Info: ATTENTION: PCMM is unavailable, data is current as of: 05/17/21@11:00:02 [facility] ([id number]) MH: MARILOU BENÍTEZ ([facility]) Nurse Practitioner || Simon Boyd [facility] ([id number]) PACT: HOLLI SMITH (Focus: Womens Health) Primary Care Provider: Designated Pcp: Charisse Berman Sql Database Administrator: Breanne Rowell Clinical Associate: Cedric Wadsworth Dry Wall Installer: Charlotte Orozco || PHONE:[phone] PACT Clinical Pharmacist: Natalia Carrizales Clinical POC: Sql Database Administrator || Breanne Rowell Administrative POC: Dry Wall Installer || Charlotte Orozco || PHONE:[phone] The following identifiers were used to verify th is patient: . SSN. The patient, SANDOR PERERA ([id number]) Phone: [phone] called the call center. Contact Phone Number: [phone] Caller Area: [place] Caller Response: APPT NEXT DAY Comments: [place] called requesting an appointment with PCP tomorrow r/t lower back pain. 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 Describes pain as worsening with a burn ing electrial sensation, difficultly walking and santy ding, with right leg swelling and numbness. Reports minimal relief of pain after taking codeine tabl ets. [place] advised of the TEDP triage recommendatio n & plans to be evaluated at [facility] ER if pain worsens this eveni ng. Please contact at . thank you. Chief Complaint: Back Pain Triage Note Phone Triage Sun Jun 20 2021 16:25:35 GMT-0400 ([facility] Time) Demographics 41 y/o Female Results CC: Back Pain Nurse Recommendation: 2-8 Hours TEDP Suggestion: 2-8 Hours Nurse Recommended Follow-up Location: Clinic, [facility] TEDP Suggested Follow-up Location: Clinic, [place] Values and Measures Pain scale: 9 Duration of CC: 1 Days Positive Responses HPI: back pain, lower back HPI: back pain, severe, duration longer than 1 hour HPI: difficulty walking PMH: kidney stone Negative Responses Denies: HPI: back injury, recent Denies: HPI: back pain, duration longer than 1 month Denies: HPI: back pain, unilateral Denies: HPI: dysuria Denies: HPI: hematuria Denies: HPI: increased urinary frequency Denies: HPI: numbness, groin or legs, new Denies: HPI: pain, similar to past kidney stone Denies: HPI: skin erythema, back, worsening Denies: HPI: urinary incontinence Denies: HPI: urinary urgency, constant Denies: HPI: vomiting Denies: PMH: UTI Class Code: Other specified counseling. [place] Verbalizes Understanding Patient/Caller agrees with plan. Imported Information: Clinical Contact/Call Center Coronavirus Disease 2019 (COVID-19) Screen, toñito. , January 07, 2021 In the last 14 days have you had new onset of a ny of the following symptoms: () Chills Comment: () Cough Comment: () Diarrhea Comment: () Fatigue Comment: () Fever Comment: () Headache Comment: () Loss of Taste or Smell Comment: () Muscle pain (Myalgias) Comment: () Nausea Comment: () Runny nose (Rhinorrhea) Comment: () Shortness of breath (Dyspnea) Comment: () Sore throat Comment: () Vomiting Comment: (x) No symptoms Within the last 14 days, have you had: () Close exposure (within 6 feet for more than 15 minutes) to someone with a febrile/respiratory illness Comment: () Close exposure (within 6 feet for more than 15 minutes) to someone with known or suspected case of COVID-19 Comment: (x) No known exposure Any symptom or exposure equal to positive scree n () Patient has a POSITIVE symptom or exposure a nd requires further evaluation Nurse/Provider/Other notified: (x) Screen is negative () Patient is waiting on COVID-19 test results. Comment: () Patient reports prior COVID-19 Diagnosis. Co mment: Evaluation/Management Code: HC PRO PHONE CALL 5- 10 MIN ([id number]). Starting at: 06/20/2021 @ 1:24:17 PM Ending at: 06/20/2021 @ 1:33:12 PM Length: 8 minutes. Author: CHERELLE RUELAS Patient's Email Address: [email or web address] /es/ CHERELLE RUELAS RN [facility] NURSE Signed: 06/20/2021 13:38 Receipt Acknowledged By: * AWAITING SIGNATURE * CHARISSE BERMAN"
--- OUTSIDE RECORDS SUMMARY | 2021-09-20 19:07 | External Medical Summary | Encounter Summary ---
:[address] [facility] Address [address] [place] [address] Care Team Providers Name Role Phone CHARISSE BERMAN Primary Care Provider Unavailable Selected Encounter This section includes the information on record at [place] for the Encounter. Date/Time Encounter Type Encounter Description Reason Provider Source Jun 05, 2021 01:32 Outpatient Encounter PRIMARY CARE/MEDICINE PM IHE Encounter Template Text not used by [place] Plan of Treatment: Future Appointments (+ 6 months) and Future Tests (+/- 45 days) The Plan of Treatment section includes future care activities for the patient from all [place] treatmentfacilities. This section includes future appointments and future orders which are active, pending orscheduled.Future Appointments This section includes appointments that were scheduled to occur 6 months from the date of the Encounter, up to a maximum of 20 appointments. The data comes from all [place] treatment facilities. Appointment Date/Time Appointment Type Appointment Facili ty Name Jun 22, 2021 08:30 AM AMBULATORY - [facility]INE [facility] Jun 29, 2021 01:00 PM AM[facility]ULATORY - [facility] Jul 01, 2021 08:00 AM AMBULATORY - NONE [facility] Jul 07, 2021 07:00 AM AMBULATORY - NONE [facility] Jul 15, 2021 03:00 PM AMBULATORY - MEDIC[facility] Jul 26, 2021 09:00 AM AM[facility]ULATORY - [facility] Aug 04, 2021 01:00 PM AMBULATORY - [facility]IC[facility] Aug 05, 2021 01:20 PM AMBULATORY - MEDICINE [facility] Aug 06, 2021 08:15 AM AMBULATORY - MEDICINE [facility] Aug 10, 2021 03:30 PM AMBULATORY - MEDICINE [facility] Aug 11, 2021 11:10 AM AMBULATORY - NONE [facility] Aug 17, 2021 03:00 PM AMBULATORY - MEDICINE [facility] Aug 24, 2021 02:00 PM AMBULATORY - NONE [facility] Aug 25, 2021 01:00 PM AMBULATORY - MEDICINE [facility] Sep 20, 2021 09:00 AM AMBULATORY - NONE [facility] Oct 01, 2021 02:00 PM AMBULATORY - MEDICINE [facility] Oct 01, 2021 03:00 PM AMBULATORY - NONE [facility] Social History: Smoking Status (Most current) and Tobacco Use (All prior to encounter date) This section includes the most current, and the historical, smoking and tobacco-related health factors from the [place] facility where the Encounter took place.Current Smoking Status This section includes the most current smoking, or tobacco-related health factor, from the [place] facility where the Encounter took place. Date/Time Current Smoking Status Comment Facility Jan 07, 2009 09:40 AM [facility] Encounter Notes: All associated encounter notes This section contains the clinical notes associated to the Encounter. Date/Time Encounter Note(s) Provider Source Jun 05, 2021 01:40 PM ACCOUNTING OF DISCLOSURES NOTE: MARY BERMAN [facility] LOCAL TITLE: STATE PRESCRIPTION DRUG MONITORING PROGRAM NOTE STANDARD TITLE: ACCOUNTING OF DISCLOSURES NOTE DATE OF NOTE: JUN 05, 2021@13:40:08 ENTRY DATE: JUN 05, 2021@13:40:09 AUTHOR: CHARISSE BERMAN EXP COSIGNER: URGENCY: STATUS: COMPLETED This PDMP query was submitted by Charisse Berman. The clinical justification for this PDMP query i s to review controlled substances prescribed outside of the MD, and any additional information that may become available, as an important compo nent of standard clinical care, and in accordance with [facility] policy. Patient information was shared with the PDMP Da riss [place]cl[place]. No prescription(s) for controlled substances out side the [facility] were found in the last 90 days. /elina/ Charisse CADET Nurse Practitioner Signed: 06/05/2021 13:40
--- OUTSIDE RECORDS SUMMARY | 2021-09-20 19:08 | External Medical Summary | Encounter Summary ---
:[address] [facility] Address [address] [place] [address] Care Team Providers Name Role Phone CHARISSE BERMAN Primary Care Provider Unavailable Selected Encounter This section includes the information on record at [place] for the Encounter. Date/Time Encounter Type Encounter Reason Provider Source Description Jun 03, 2021 12:00 Outpatient PRIMARY PADMA HOLLY PM Encounter CARE/MEDICINE I IHE Encounter Template Text not used by [place] Plan of Treatment: Future Appointments (+ 6 months) and Future Tests (+/- 45 days) The Plan of Treatment section includes future care activities for the patient from all [place] treatmentfacilities. This section includes future appointments and future orders which are active, pending orscheduled.Future Appointments This section includes appointments that were scheduled to occur 6 months from the date of the Encounter, up to a maximum of 20 appointments. The data comes from all [place] treatment facilities. Appointment Date/Time Appointment Type Appointment Facili ty Name Jun 04, 2021 03:00 PM AMBULATORY - MEDICINE [facility] Jun 22, 2021 08:30 AM AMBULATORY - MEDICINE [facility] Jun 29, 2021 01:00 PM AMBULATORY - MEDICINE [facility] Jul 01, 2021 08:00 AM AMBULATORY - NONE [facility] STEWARD [facility] Jul 07, 2021 07:00 AM AMBULATORY - NONE [facility] STEWARD [facility] Jul 15, 2021 03:00 PM AMBULATORY - MEDICINE [facility] Jul 26, 2021 09:00 AM AMBULATORY - MEDICINE [facility] Aug 04, 2021 01:00 PM AMBULATORY - MEDICINE [facility] Aug 05, 2021 01:20 PM AMBULATORY - MEDICINE [facility]IAS MOYA [facility] Aug 06, 2021 08:15 AM AMBULATORY - MEDICINE [facility] Aug 10, 2021 03:30 PM AMBULATORY - MEDICINE [facility] Aug 11, 2021 11:10 AM AMBULATORY - NONE [facility]AS GROVESPAT [facility] Aug 17, 2021 03:00 PM AMBULATORY - MEDICINE [facility] Aug 24, 2021 02:00 PM AMBULATORY - NONE [facility]AS GROVESPAT [facility] Aug 25, 2021 01:00 PM AMBULATORY - MEDICINE [facility] Sep 20, 2021 09:00 AM AMBULATORY - NONE [facility]IAS JUSTINSHARRI [facility] Oct 01, 2021 02:00 PM AMBULATORY - MEDICINE [facility] MOYA [facility] Oct 01, 2021 03:00 PM AMBULATORY - NONE [facility] Social History: Smoking Status (Most current) and Tobacco Use (All prior to encounter date) This section includes the most current, and the historical, smoking and tobacco-related health factors from the [place] facility where the Encounter took place.Current Smoking Status This section includes the most current smoking, or tobacco-related health factor, from the [place] facility where the Encounter took place. Date/Time Current Smoking Status Comment Facility Jan 07, 2009 09:40 AM CURRENT TOBACCO USER EDGAR Perera [facility] Encounter Notes: All associated encounter notes This section contains the clinical notes associated to the Encounter. Date/Time Encounter Note(s) Provider Source Jun 03, 2021 12:00 PM PRIMARY CARE SECURE MESSAGING: BROOKE HOLLY I [facility] LOCAL TITLE: PRIMARY CARE SECURE MESSAGING STANDARD TITLE: PRIMARY CARE SECURE MESSAGING DATE OF NOTE: JUN 03, 2021@12:00:41 ENTRY DATE: JUN 03, 2021@09:00:42 AUTHOR: PADMA HOLLY COSIGNER: URGENCY: STATUS: COMPLETED ------Original Message Sent: 06/03/2021 12:36 AM From: BARBARA DYER To: RADHA - Primary Care_[facility] Subject: Re-prescribe/refill Ms. Berman, I need to refill my codeine but it said zero refills left. Can you fix that so I can get it refilled? Thank You, Barbara Dyer ------Original Message Sent: 06/03/2021 12:00 PM From: PADMA HOLLY I To: BARBARA DYER Subject: Re-prescribe/refill I will forward this to [employer] for review. You will have to ask for this monthly as the providers are not allowed to place refill s on controlled substances so she will need notice when you are ready for a re fill. Have a good day. Let us know if you have anymore questions. Padma MAGANA /elina/ PADMA HOLLY LPN Signed: 06/03/2021 09:00 Receipt Acknowledged By: * AWAITING SIGNATURE * CHARISSE BERMAN
--- OUTSIDE RECORDS SUMMARY | 2021-09-20 19:08 | External Medical Summary | Encounter Summary ---
:1980 Author Organization Department of [facility] Address [address] [place] [id number] Care Team Providers Name Role Phone CHARISSE GARCIA Primary Care Provider Unavailable Selected Encounter This section includes the information on record at [place] for the Encounter. Date/Time Encounter Type Encounter Description Reason Provider Source May 17, 2021 10:59 Outpatient Encounter ADMIN PAT ACTIVTIES AM (MASNONCT) IHE Encounter Template Text not used by [...] 04, 2021 03:00 PM AMBULATORY - MEDICINE [facility] Jun 22, 2021 08:30 AM AMBULATORY - MEDICINE [facility] Jun 29, 2021 01:00 PM AMBULATORY - MEDICINE [facility] Jul 01, 2021 08:00 AM AMBULATORY - NONE [facility] Jul 07, 2021 07:00 AM AMBULATORY - NONE [facility] ST[facility] Jul 15, 2021 03:00 PM AMBULATORY - MEDICINE [facility] Jul 26, 2021 09:00 AM AMBULATORY - MEDICINE [facility] Aug 04, 2021 01:00 PM AMBULATORY - MEDICINE [facility] Aug 05, 2021 01:20 PM AMBULATORY - MEDICINE MATIAS MOYA [facility] Aug 06, 2021 08:15 AM AMBULATORY - MEDICINE [facility] Aug 10, 2021 03:30 PM AMBULATORY - MEDICINE [facility] Aug 11, 2021 11:10 AM AMBULATORY - NONE MATIAS Perera [facility] Aug 17, 2021 03:00 PM AMBULATORY - MEDICINE [facility] Aug 24, 2021 02:00 PM AMBULATORY - NONE [facility]IAS Perera [facility] Aug 25, 2021 01:00 PM AMBULATORY - MEDICINE [facility] Sep 20, 2021 09:00 AM AMBULATORY - NONE MATIAS Perera BIN [facility] Oct 01, 2021 02:00 PM AMBULATORY - MEDICINE MATIAS MOYA [facility] Oct 01, 2021 03:00 PM AMBULATORY - NONE [facility] Lab Results: +/- 30 days of the encounter This section includes the Chemistry and Hematology Lab Results on record with [place] for the patient. Radiology Reports and Pathology Reports are provided separately, in subsequent sections.Lab Results This section contains the Chemistry/Hematology Results that were resulted 30 days before or 30 daysafter the date of the Encounter. Date/Time Source Result Type Result - Unit Interpretation Reference Range Comment Apr 29, 2021 [facility] OPIATE PANEL WITH Misa yan Type: URINE 01:38 PM [facility] NALOXONE No comment enter ed. Ordering Provid er: CHARISSE GARCIA Report Released Date/Time: Mar 17, 2021 06:59 PM Reporting [facility] [address] [place] [address] Performing Lab: [facility] ; [place] [address] CODEINE 77997 ng/mL H 0-24 MORPHINE 143 ng/mL H 0-24 OXYCODONE <25 ng/mL 0-24 OXYMORPHONE <25 ng/mL 0-24 HYDROCODONE 242 ng/mL H 0-24 HYDROMORPHONE <25 ng/mL 0-24 NALOXONE,URINE <10 ng/mL 0-9 6-ACETYLMORPHINE <10 ng/mL 0-9 NOROXYCODONE <25 ng/mL 0-24 NORHYDROCODONE 132 ng/mL H 0-49 TRAMADOL <100 ng/mL 0-99 MEPERIDINE <100 ng/mL 0-99 NOROXYMORPHONE <50 ng/mL 0-49 TAPENTADOL <50 ng/mL 0-49 TAPENTADOL-S <100 ng/mL 0-99 ZOLPIDEM <20 ng/mL 0-19 Apr 29, 2021 01:38 [facility] EXPANDED URINE DRUG S pecimen Type: URINE PM [facility] SCREEN Comment: These drug screen results are presumptive only. For unexpected results, confirmatory testing is available if requested in a timely manner. Results are to be used for medical purposes only. Uri ne creatinine va lues <20 mg/dL should be considered a dilute sample. CREATININE, URINE reference ranges apply to first morning void. Ordering Provid er: CHARISSE GARCIA Report Released Date/Time: Mar 17, 2021 06:59 PM Reporting Lab: [facility] [place] [address] [place] [address] Performing Lab: [facility] [place] [address] [place] [address] CREATININE, URINE 113.2 mg/dL 29-226 AMPHETAMINES/METHAMPHETAMINES SCREEN 87 NEG BARBITURATES SCREEN 11 NEG BENZODIAZEPINES SCREEN 52 NEG CANNABINOIDS SCREEN 23 NEG COCAINE SCREEN 4 NEG METHADONE SCREEN 0 NEG METHADONE METABOLITE (EDDP) SCREEN 71 NEG OPIATES SCREEN 1500 NEG OXYCODONE SCREEN 21 NEG PHENCYCLIDINE (PCP) SCREEN 11 NEG Apr 22, 2021 [facility] COVID-19 & FLU Specimen Type: NASOPHARYNX 03:30 PM [facility] DIAGNOSTIC PANEL Comment: Matt Jorge Sanaz (397) (SANAZ) Ordering Provid er: CHARISSE GARCIA Report Released Date/Time: Apr 22, 2021 03:18 PM Reporting Lab: [place] [address] [place] [address] Performing Lab: [facility] [address] [place] [address] ANCILLARY INFLUENZA A RNA Not Detected N ot Detected ANCILLARY INFLUENZA B RNA Not Detected N ot Detected COVID-19 (SANAZ) Not Detected Not Detect ed Social History: Smoking Status (Most current) and [...] 09:40 AM CURRENT TOBACCO USER EDGAR Perera [place] [facility] Encounter Notes: All associated encounter notes This section contains the clinical notes associated to the Encounter. Date/Time Encounter Note(s) Provider Source May 17, 2021 10:59 AM PHARMACY NOTE: DENISE DANG LOCAL TITLE: PHARMACY NOTE [facility] STANDARD TITLE: PHARMACY NOTE DATE OF NOTE: MAY 17, 2021@10:59 ENTRY DATE: MAY 17, 2021@10:59:07 AUTHOR: DENISE DANG EXP COSIGNER: URGENCY: STATUS: COMPLETED PHARMACY NOTE Has ADDENDA [facility] has requested a refill on a medication t hat is currently unavailable due to sash assembler back order. Salary Manager has halted distribution of this medication, it is unknown when this medication m ight be available. [facility] is Requesting: VARENICLINE Please consider other medications from the Advestigo ng Cessation menu. Provider/PACT team notified of medication backor anthony via this note /elina/ DENISE DANG [facility] Signed: 05/17/2021 11:00 Receipt Acknowledged By: 05/17/2021 11:19 /es/ VERÓNICA FISH RN 05/24/2021 13:06 /elina/ Charisse CADET Nurse Practitioner 05/24/2021 ADDENDUM STATUS: COMPLETED Notify Varenicline has been on reacall not avail able at this time. Acetazolamide has been reordered. Ask if wants patches, gum lozenges. /elina/ Charisse CADET Nurse Practitioner Signed: 05/24/2021 13:08 Receipt Acknowledged By: 05/25/2021 12:09 /elina/ VERÓNICA FISH RN 05/25/2021 ADDENDUM STATUS: COMPLETED notified via secure message /elina/ VERÓNICA FISH RN Signed: 05/25/2021 12:10
--- OUTSIDE RECORDS SUMMARY | 2021-09-20 19:08 | External Medical Summary | Encounter Summary ---
:1980 Author Organization Department [facility] Address [address] [place] [address] Care Team Providers Name Role Phone CHARISSE KENNEDY Primary Care Provider Unavailable Selected Encounter This section includes the information on record at [place] for the Encounter. Date/Time Encounter Type Encounter Description Reason Provider Source May 26, 2021 05:50 Outpatient Encounter PRIMARY CARE/MEDICINE PM IHE Encounter Template Text not used by [place] Plan of Treatment: Future Appointments (+ 6 months) and Future Tests (+/- 45 days) The Plan of Treatment section includes future care activities for the patient from all [place] treatmentfacilities. This section includes future appointments and future orders which are active, pending orscheduled.Future Appointments This section includes appointments that were scheduled to occur 6 months from the date of the Encounter, up to a maximum of 20 appointments. The data comes from all [place] treatment facilities. Appointment Date/Time Appointment Type Appointment Facili ty Name Jun 04, 2021 03:00 PM AMBULATORY - MEDICINE [facility] Jun 22, 2021 08:30 AM AMBULATORY - MEDICINE [facility] Jun 29, 2021 01:00 PM AMBULATORY - MEDICINE [facility] Jul 01, 2021 08:00 AM AMBULATORY - NONE [facility] STEW[facility] Jul 07, 2021 07:00 AM AMBULATORY - NONE [facility] STEWARD [facility] Jul 15, 2021 03:00 PM AMBULATORY - MEDICINE [facility] Jul 26, 2021 09:00 AM AMBULATORY - MEDICINE [facility] Aug 04, 2021 01:00 PM AMBULATORY - MEDICINE [facility] Aug 05, 2021 01:20 PM AMBULATORY - MEDICINE [facility] Aug 06, 2021 08:15 AM AMBULATORY - MEDICINE [facility] Aug 10, 2021 03:30 PM AMBULATORY - MEDICINE [facility] Aug 11, 2021 11:10 AM AMBULATORY - NONE [facility] GROVESPAT [facility] Aug 17, 2021 03:00 PM AMBULATORY - MEDICINE [facility] Aug 24, 2021 02:00 PM AMBULATORY - NONE [facility] GROVESPAT [facility] Aug 25, 2021 01:00 PM AMBULATORY - MEDICINE [facility] Sep 20, 2021 09:00 AM AMBULATORY - NONE MATIAS Perera BIN [facility] Oct 01, 2021 02:00 PM AMBULATORY - MEDICINE [facility] Perera [facility] Oct 01, 2021 03:00 PM AMBULATORY - NONE [facility] Lab Results: +/- 30 days of the encounter This section includes the Chemistry and Hematology Lab Results on record with [place] for the patient. Radiology Reports and Pathology Reports are provided separately, in subsequent sections.Lab Results This section contains the Chemistry/Hematology Results that were resulted 30 days before or 30 daysafter the date of the Encounter. Date/Time Source Result Type Result - Unit Interpretation Reference Range Comment Apr 29, 2021 [facility] OPIATE PANEL WITH Misa yan Type: URINE 01:38 PM [facility] NALOXONE No comment enter ed. Ordering Provid er: CHARISSE KENNEDY Report Released Date/Time: Mar 17, 2021 06:59 PM Reporting Lab: MATIAS Perera [address] [place] [address] Performing Lab: [facility] ; [place] [address] CODEINE 04098 ng/mL H 0-24 MORPHINE 143 ng/mL H [...] URINE DRUG S pecimen Type: URINE PM [facility] SCREEN Comment: These drug screen results are presumptive only. For unexpected results, confirmatory testing is available if requested in a timely manner. Results are to be used for medical purposes only. Uri ne creatinine va lues <20 mg/dL should be considered a dilute sample. CREATININE, URINE reference ranges apply to first morning void. Ordering Provid er: CHARISSE KENNEDY Report Released Date/Time: Mar 17, 2021 06:59 PM Reporting Lab: [facility] STEWARD[address] [place] [address] Performing Lab: [facility] STEWARD[address] [place] [address] CREATININE, URINE 113.2 mg/dL 29-226 AMPHETAMINES/METHAMPHETAMINES SCREEN 87 NEG BARBITURATES SCREEN 11 NEG BENZODIAZEPINES SCREEN 52 NEG CANNABINOIDS SCREEN 23 NEG COCAINE SCREEN 4 NEG METHADONE SCREEN 0 NEG METHADONE METABOLITE (EDDP) SCREEN 71 NEG OPIATES SCREEN 1500 NEG OXYCODONE SCREEN 21 NEG PHENCYCLIDINE (PCP) SCREEN 11 NEG Social History: Smoking Status (Most current) and Tobacco Use (All prior to encounter date) This section includes the most current, and the historical, smoking and tobacco-related health factors from the [place] facility where the Encounter took place.Current Smoking Status This section includes the most current smoking, or tobacco-related health factor, from the [place] facility where the Encounter took place. Date/Time Current Smoking Status Comment Facility Jan 07, 2009 09:40 AM CURRENT TOBACCO USER EDGAR Perera [facility] Encounter Notes: All associated encounter notes This section contains the clinical notes associated to the Encounter. Date/Time Encounter Note(s) Provider Source May 26, 2021 05:50 PM PRIMARY CARE SECURE MESSAGING: GABRIELA QUINONES [facility] LOCAL TITLE: PRIMARY CARE SECURE MESSAGING STANDARD TITLE: PRIMARY CARE SECURE MESSAGING DATE OF NOTE: MAY 26, 2021@17:50:05 ENTRY DATE: MAY 26, 2021@14:50:06 AUTHOR: SUKHDEV QUINONES EXP COSIGNER: URGENCY: STATUS: COMPLETED ------Original Message Sent: 05/25/2021 03:10 PM From: VERÓNICA FISH To: BARBARA PERERA Subject: General Inquiry Per Charisse kennedy NP, states: Notify Varenicline has been on reacall not available at this time. Acetazolamide has been reordered. Ask if wants patches, gum lozenges. /elina/ Charisse CADET Nurse Practitioner Signed: 05/24/2021 13:08 [place] JACKMAN ------Original Message Sent: 05/26/2021 05:20 PM From: BARBARA PERERA To: RADHA [facility] Care_[facility] Subject: General Inquiry I suppose patches will ok UNTIL Chantix is avail able again. /elina/ SUKHDEV FINN/Yoni Signed: 05/26/2021 14:50
--- OUTSIDE RECORDS SUMMARY | 2021-09-20 19:09 | External Medical Summary | Encounter Summary ---
:1980 Author Organization Department [facility] Address [address] [place] [id number] Care Team Providers Name Role Phone CHARISSE GARCIA Primary Care Provider Unavailable Selected Encounter This section includes the information on record at [place] for the Encounter. Date/Time Encounter Type Encounter Description Reason Provider Source May 12, 2021 02:31 Outpatient Encounter PRIMARY CARE/MEDICINE PM IHE Encounter Template Text not used by CO Plan of Treatment: Future Appointments (+ 6 months) and Future Tests (+/- 45 days) The Plan of Treatment section includes future care activities for the patient from all [place] treatmentfacilities. This section includes future appointments and future orders which are active, pending orscheduled.Future Appointments This section includes appointments that were scheduled to occur 6 months from the date of the Encounter, up to a maximum of 20 appointments. The data comes from all [place] treatment facilities. Appointment Date/Time Appointment Type Appointment Facili ty Name Jun 04, 2021 03:00 PM AMBULATORY - MEDICINE [facility] Jun 22, 2021 08:30 AM AMBULATORY - MEDICINE [facility] Jun 29, 2021 01:00 PM AMBULATORY - MEDICINE [facility] Jul 01, 2021 08:00 AM AMBULATORY - NONE MATIAS STEWARD [facility] Jul 07, 2021 07:00 AM AMBULATORY - NONE MATIAS STEWARD [facility] Jul 15, 2021 03:00 PM AMBULATORY - MEDICINE [facility] Jul 26, 2021 09:00 AM AMBULATORY - MEDICINE [facility] Aug 04, 2021 01:00 PM AMBULATORY - MEDICINE [facility] Aug 05, 2021 01:20 PM AMBULATORY - MEDICINE MATIAS MOYA [facility] Aug 06, 2021 08:15 AM AMBULATORY - MEDICINE [facility] Aug 10, 2021 03:30 PM AMBULATORY - MEDICINE [facility] Aug 11, 2021 11:10 AM AMBULATORY - NONE MATIAS STEWARD [facility] Aug 17, 2021 03:00 PM AMBULATORY - MEDICINE [facility] Aug 24, 2021 02:00 PM AMBULATORY - NONE MATIAS STEWARD [facility] Aug 25, 2021 01:00 PM AMBULATORY - MEDICINE [facility] Sep 20, 2021 09:00 AM AMBULATORY - NONE MATIAS Perera BIN [facility] Oct 01, 2021 02:00 PM AMBULATORY - MEDICINE MATIAS MOYA [facility] Oct 01, 2021 03:00 PM AMBULATORY - NONE [facility] Lab Results: +/- 30 days of the encounter This section includes the Chemistry and Hematology Lab Results on record with [place] for the patient. Radiology Reports and Pathology Reports are provided separately, in subsequent sections.Lab Results This section contains the Chemistry/Hematology Results that were resulted 30 days before or 30 daysafter the date of the Encounter. Date/Time Source Result Type Result - Unit Interpretation Reference Range Comment Apr 29, 2021 MATIAS Perera [facility] OPIATE PANEL WITH Misa yan Type: URINE 01:38 PM [facility] [place] No comment enter ed. Ordering Provid er: CHARISSE GARCIA Report Released Date/Time: Mar 17, 2021 06:59 PM Reporting Lab: MATIAS JUSTIN[address] [place] [address] Performing Lab: MATIAS Perera [facility] ; [place] [address] CODEINE 17949 ng/mL H 0-24 MORPHINE 143 ng/mL H [...] URINE DRUG S pecimen Type: URINE PM [facility] SCREEN Comment: These drug screen results [...] 2021 06:59 PM Reporting Lab: MATIAS CLARK [place] [address] [place] [address] Performing Lab: [facility] CLARK [place] [address] [place] [address] CREATININE, URINE 113.2 mg/dL 29-226 AMPHETAMINES/METHAMPHETAMINES SCREEN 87 NEG BARBITURATES SCREEN 11 NEG BENZODIAZEPINES SCREEN 52 NEG CANNABINOIDS SCREEN 23 NEG COCAINE SCREEN 4 NEG METHADONE SCREEN 0 NEG METHADONE METABOLITE (EDDP) SCREEN 71 NEG OPIATES SCREEN 1500 NEG OXYCODONE SCREEN 21 NEG PHENCYCLIDINE (PCP) SCREEN 11 NEG Apr 22, 2021 MATIAS CLARK COVID-19 & FLU Specimen Type: NASOPHARYNX 03:30 PM [facility] DIAGNOSTIC PANEL Comment: Matt Jorge Sanaz (597) (SANAZ) Ordering Provid er: CHARISSE GARCIA Report Released Date/Time: Apr 22, 2021 03:18 PM Reporting Lab: [place] [address] [place] [address] Performing Lab: [facility] CLARK [place] [address] [place] [address] ANCILLARY INFLUENZA A RNA Not Detected N ot Detected ANCILLARY INFLUENZA B RNA Not Detected N ot Detected COVID-19 (SANAZ) Not Detected Not Detect ed Social History: Smoking Status (Most current) and Tobacco Use (All prior to encounter date) This section includes the most current, and the historical, smoking and tobacco-related health factors from the [place] facility where the Encounter took place.Current Smoking Status This section includes the most current smoking, or tobacco-related health factor, from the [place] facility where the Encounter took place. Date/Time Current Smoking Status Comment Facility Feb 23, 2021 02:00 PM VA-TOBACCO FORMER USER [facility] Tobacco Use History This section includes a history of the smoking, or tobacco- related health factors, that were collected on or before the date of the Encounter. The data comes from the [facility] where the Encounter took place. Date/Time Smoking Status/Tobacco Use Comment [facility] Feb 23, 2021 02:00 PM VA-TOBACCO QUIT < 1 YEAR [facility] Jul 25, 2019 01:50 PM VA-TOBACCO DOESNT USE WI [facility] 30 MIN WAKEUP Jul 25, 2019 01:50 PM VA-TOBACCO USE > 15 LESS [facility] THAN 30 YEARS Jul 25, 2019 01:50 PM VA-TOBACCO USE ADVICE [facility] Jul 25, 2019 01:50 PM VA-TOBACCO USE COMMUNICATIONS REPRESENTATIVE NO [facility] Jul 25, 2019 01:50 PM VA-TOBACCO USE MED NOTIFY [facility] PROVIDER Jul 25, 2019 01:50 PM VA-TOBACCO USER EVERY DAY [facility] Jul 09, 2018 03:00 PM VA-TOBACCO USE > 15 LESS [facility] THAN 30 YEARS Jul 09, 2018 03:00 PM VA-TOBACCO USE ADVICE [facility] Jul 09, 2018 03:00 PM VA-TOBACCO USE COMMUNICATIONS REPRESENTATIVE NO [facility] Jul 09, 2018 03:00 PM VA-TOBACCO USE MED NO [facility] Jul 09, 2018 03:00 PM VA-TOBACCO USE WI 30 MIN [facility] OF WAKEUP Jul 09, 2018 03:00 PM VA-TOBACCO USER EVERY DAY [facility] Jan 10, 2018 12:55 PM TOBACCO MEDICATION MARIA ELENA Juarez [facility] Sep 19, 2017 09:33 AM CURRENT TOBACCO USER [facility] Sep 19, 2017 09:33 AM TOBACCO SCREEN COMPLETED L [facility] No, not willing to quit now Aug 12, 2016 01:53 PM CURRENT TOBACCO USER HARRY BERNAL [facility] Aug 12, 2016 01:53 PM TOBACCO MEDICATION [facility] MarlenBianka CADET Aug 12, 2016 01:53 PM TOBACCO SCREEN COMPLETED [facility] Yes, willing to quit now May 30, 2013 11:04 AM LIFETIME NON-USER OF HARRY BERNAL [facility] TOBACCO Feb 22, 2012 09:19 AM CURRENT TOBACCO USER HARRY DOLORES [facility] Feb 22, 2012 09:19 AM TOBACCO SCREEN COMPLETED [facility] No, not willing to quit now Mar 07, 2011 11:32 AM TOBACCO MEDICATION [place] [facility] Feb 25, 2011 10:38 AM CURRENT TOBACCO USER Severity= MINIMAL ANA PAULA MORENO [facility] Feb 25, 2011 10:38 AM TOBACCO MEDICATION Severity= MINIMAL BRIT PEREZ [facility] REFERRAL DR HALEY Feb 25, 2011 10:38 AM TOBACCO SCREEN COMPLETED Severity= MINIMA Ana [facility] Yes, willing to quit now Sep 27, 2010 11:38 AM TOBACCO MEDICATION [place] [facility] Sep 27, 2010 11:38 AM TOBACCO MEDICATION ORDERED [facility] Jan 04, 2010 10:28 AM CURRENT TOBACCO USER HARRY BERNAL [facility] Jan 04, 2010 10:28 AM TOBACCO MEDICATION [place] [facility] Jan 04, 2010 10:28 AM TOBACCO MEDICATION ORDERED [facility] Jan 04, 2010 10:28 AM TOBACCO MEDICATION [place] [facility] REFERRAL DR. CANELA Encounter Notes: All associated encounter notes This section contains the clinical notes associated to the Encounter. Date/Time Encounter Note(s) Provider Source May 17, 2021 12:46 PM NO SHOW NOTE: JAIDEN MARLOW Kristy [facility] LOCAL TITLE: NO SHOW NOTE STANDARD TITLE: NO SHOW NOTE DATE OF NOTE: MAY 17, 2021@12:46 ENTRY DATE: MAY 17, 2021@12:46:28 AUTHOR: JAIDEN MARLOW EXP COSIGNER: URGENCY: STATUS: COMPLETED late entry. attempted to contact pt at a ppt time via TELE. generic message left with clinic contact provided. MSA notified. /elina/ JAIDEN MARLOW, PHARM D, BCACP CLINICAL PHARMACIST PRACTITIONER Signed: 05/17/2021 12:47 Receipt Acknowledged By: * AWAITING SIGNATURE * GIULIANO GAMINO
--- OUTSIDE RECORDS SUMMARY | 2021-09-20 19:09 | External Medical Summary | Encounter Summary ---
:1980 Author Organization Department [facility] Address [address] [place] [id number] Care Team Providers Name Role Phone CHARISSE GARCIA Primary Care Provider Unavailable Selected Encounter This section includes the information on record at PA for the Encounter. Date/Time Encounter Type Encounter Description Reason Provider Source May 10, 2021 11:31 Outpatient Encounter PRIMARY CARE/MEDICINE AM IHE Encounter Template Text not used by PA Plan of Treatment: Future Appointments (+ 6 months) and Future Tests (+/- 45 days) The Plan of Treatment section includes future care activities for the patient from all [place] treatmentfacilities. This section includes future appointments and future orders which are active, pending orscheduled.Future Appointments This section includes appointments that were scheduled to occur 6 months from the date of the Encounter, up to a maximum of 20 appointments. The data comes from all [place] treatment facilities. Appointment Date/Time Appointment Type Appointment Facili ty Name May 12, 2021 02:31 PM AMBULATORY - MEDICINE [facility] Jun 04, 2021 03:00 PM AMBULATORY - MEDICINE [facility] Jun 22, 2021 08:30 AM AMBULATORY - MEDICINE [facility] Jun 29, 2021 01:00 PM AMBULATORY - MEDICINE [facility] Jul 01, 2021 08:00 AM AMBULATORY - NONE MATIAS STEWARD [facility] Jul 07, 2021 07:00 AM AMBULATORY - NONE MATIAS STEWARD [facility] Jul 15, 2021 03:00 PM AMBULATORY - MEDICINE [facility] Jul 26, 2021 09:00 AM AMBULATORY - MEDICINE [facility] Aug 04, 2021 01:00 PM AMBULATORY - MEDICINE [facility] Aug 05, 2021 01:20 PM AMBULATORY - MEDICINE MATIAS Perera NHANRENE NITA [facility] Aug 06, 2021 08:15 AM AMBULATORY - MEDICINE [facility] Aug 10, 2021 03:30 PM AMBULATORY - MEDICINE [facility] Aug 11, 2021 11:10 AM AMBULATORY - NONE MATIAS M. BIN [facility] Aug 17, 2021 03:00 PM AMBULATORY - MEDICINE [facility] Aug 24, 2021 02:00 PM AMBULATORY - NONE MATIAS MBianka STEWARD [facility] Aug 25, 2021 01:00 PM AMBULATORY - MEDICINE [facility] Sep 20, 2021 09:00 AM AMBULATORY - NONE MATIAS MBianka STEWARD [facility] Oct 01, 2021 02:00 PM AMBULATORY - MEDICINE MATIAS MarlenBianka MOYA [facility] Oct 01, 2021 03:00 PM AMBULATORY - NONE [facility] MEDICAL ENTER Lab Results: +/- 30 days of the encounter This section includes the Chemistry and Hematology Lab Results on record with PA for the patient. Radiology Reports and Pathology Reports are provided separately, in subsequent sections.Lab Results This section contains the Chemistry/Hematology Results that were resulted 30 days before or 30 daysafter the date of the Encounter. Date/Time Source Result Type Result - Unit Interpretation Reference Range Comment Apr 29, 2021 [facility] OPIATE PANEL WITH Spe cimen Type: URINE 01:38 PM [facility] NALOXONE No comment enter ed. Ordering Provid er: CHARISSE GARCIA Report Released Date/Time: Mar 17, 2021 06:59 PM Reporting [facility] [address] [place] [address] Performing Lab: MATIAS Perera [facility] ; [place] [address] CODEINE 57166 ng/mL H 0-24 MORPHINE 143 ng/mL H [...] URINE DRUG S pecimen Type: URINE PM [facility] SCREEN Comment: These drug screen results [...] 2021 06:59 PM Reporting Lab: MATIAS [place] [address] [place] [address] Performing Lab: MATIAS CLARK [place] [address] [place] [address] CREATININE, URINE 113.2 mg/dL 29-226 AMPHETAMINES/METHAMPHETAMINES SCREEN 87 NEG BARBITURATES SCREEN 11 NEG BENZODIAZEPINES SCREEN 52 NEG CANNABINOIDS SCREEN 23 NEG COCAINE SCREEN 4 NEG METHADONE SCREEN 0 NEG METHADONE METABOLITE (EDDP) SCREEN 71 NEG OPIATES SCREEN 1500 NEG OXYCODONE SCREEN 21 NEG PHENCYCLIDINE (PCP) SCREEN 11 NEG Apr 22, 2021 MATIAS CLARK COVID-19 & FLU Specimen Type: NASOPHARYNX 03:30 PM [facility] DIAGNOSTIC PANEL Comment: Matt Jorge Sanaz (137) (SANZA) Ordering Provid er: CHARISSE GARCIA Report Released Date/Time: Apr 22, 2021 03:18 PM Reporting Lab: MATIAS CLARK [place] [address] [place] [address] Performing Lab: MATIAS CLARK [facility] [address] [place] [address] ANCILLARY INFLUENZA A RNA Not Detected N ot Detected ANCILLARY INFLUENZA B RNA Not Detected N ot Detected COVID-19 (SANAZ) Not Detected Not Detect ed Social History: Smoking Status (Most current) and Tobacco Use (All prior to encounter date) This section includes the most current, and the historical, smoking and tobacco-related health factors from the [place] facility where the Encounter took place.Current Smoking Status This section includes the most current smoking, or tobacco-related health factor, from the [place] facility where the Encounter took place. Date/Time Current Smoking Status Comment Facility Jan 07, 2009 09:40 AM CURRENT TOBACCO USER [place] MarlenBianka [facility] Encounter Notes: All associated encounter notes This section contains the clinical notes associated to the Encounter. Date/Time Encounter Note(s) Provider Source May 10, 2021 11:31 AM PRIMARY CARE SECURE MESSAGING: GABRIELA QUINONES [facility] LOCAL TITLE: PRIMARY CARE SECURE MESSAGING STANDARD TITLE: PRIMARY CARE SECURE MESSAGING DATE OF NOTE: MAY 10, 2021@11:31:38 ENTRY DATE: MAY 10, 2021@08:31:38 AUTHOR: SUKHDEV QUINONES EXP COSIGNER: URGENCY: STATUS: COMPLETED PRIMARY CARE SECURE MESSAGING Has ADDENDA * ------Original Message Sent: 05/09/2021 05:57 PM From: BARBARA DYER To: [facility] Subject: Refills I need refill for Varenicline, Acetazolamide, an d I believe that's all for now..... I requested last month and never receiv ed any so I'm completely out. Thank you, Barbara Dyer ------Original Message Sent: 05/10/2021 11:31 AM From: SUKHDEV QUINONES To: BARBARA DYER Subject: Refills Good morning. I will forward on to your provider for further evaluation. HUMA Whitney /elina/ SUKHDEV QUINONES Signed: 05/10/2021 08:31 Receipt Acknowledged By: 05/15/2021 20:15 /elina/ Charisse CADET Nurse Practitioner 05/15/2021 ADDENDUM STATUS: COMPLETED Notify Varenicline has been on reacall not avail able at this time. Acetazolamide has been reordered. /elina/ Charisse CADET Nurse Practitioner Signed: 05/15/2021 20:18 05/15/2021 ADDENDUM STATUS: COMPLETED correction notifiy both meds have been reordered . Varenicline has been on racall, so if does not come soon may sti ll be on racall and not available yet. /elina/ Charisse CADET Nurse Practitioner Signed: 05/15/2021 20:20 Receipt Acknowledged By: * AWAITING SIGNATURE * SUKHDEV QUINONES
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
--- OUTSIDE RECORDS SUMMARY | 2021-09-20 19:09 | External Medical Summary | Encounter Summary ---
:[address] [facility] Address [address] [place] [id number] Care Team Providers Name Role Phone CHARISSE GARCIA Primary Care Provider Unavailable Selected Encounter This section includes the information on record at [place] for the Encounter. Date/Time Encounter Type Encounter Description Reason Provider Source Apr 23, 2021 02:11 Outpatient Encounter [facility] PM CONSULT IHE Encounter Template Text not used by [place] Plan of Treatment: Future Appointments (+ 6 months) and Future Tests (+/- 45 days) The Plan of Treatment section includes future care activities for the patient from all [place] treatmentfacilities. This section includes future appointments and future orders which are active, pending orscheduled.Future Appointments This section includes appointments that were scheduled to occur 6 months from the date of the Encounter, up to a maximum of 20 appointments. The data comes from all [place] treatment facilities. Appointment Date/Time Appointment Type Appointment Facili ty Name Apr 27, 2021 07:30 AM AMBULATORY - PSYCHIATRY [facility] Apr 29, 2021 02:00 PM AMBULATORY - MEDICINE MATIAS MOYA [facility] Apr 29, 2021 02:30 PM AMBULATORY - MEDICINE [facility] May 12, 2021 02:31 PM AMBULATORY - MEDICINE [facility] Jun 04, 2021 03:00 PM AMBULATORY - MEDICINE [facility] Jun 22, 2021 08:30 AM AMBULATORY - MEDICINE [facility] Jun 29, 2021 01:00 PM AMBULATORY - MEDICINE [facility] Jul 01, 2021 08:00 AM AMBULATORY - NONE MATIAS STEWARD [facility] Jul 07, 2021 07:00 AM AMBULATORY - NONE MATIAS STEWARD [facility] Jul 15, 2021 03:00 PM AMBULATORY - MEDICINE [facility] Jul 26, 2021 09:00 AM AMBULATORY - MEDICINE [facility] Aug 04, 2021 01:00 PM AMBULATORY - MEDICINE [facility] Aug 05, 2021 01:20 PM AMBULATORY - MEDICINE MATIAS GROVES [facility] Aug 06, 2021 08:15 AM AMBULATORY - MEDICINE [facility] Aug 10, 2021 03:30 PM AMBULATORY - MEDICINE [facility] Aug 11, 2021 11:10 AM AMBULATORY - NONE MATIAS STEWARD [facility] Aug 17, 2021 03:00 PM AMBULATORY - MEDICINE [facility] Aug 24, 2021 02:00 PM AMBULATORY - NONE MATIAS GROVESPAT [facility] Aug 25, 2021 01:00 PM AMBULATORY - MEDICINE [facility] Sep 20, 2021 09:00 AM AMBULATORY - NONE MATIAS JUSTINSHARRI [facility] Active, Pending, and Scheduled Orders This section includes a listing of several types of active, pending, and scheduled orders, including clinic medications orders, diagnostic test orders, procedure orders and consult orders; where the start date of the order is 45 days before the date of the Encounter or 45 days after the date of the Encounter. The data comes from all [place] treatment facilities. Test Date/Time Test Type Test Details Facility Name Mar 23, 2021 08:57 AM Consult Order [facility] Cons Skin [facility] Lab Results: +/- 30 days of the encounter This section includes the Chemistry and Hematology Lab Results on record with [place] for the patient. Radiology Reports and Pathology Reports are provided separately, in subsequent sections.Lab Results This section contains the Chemistry/Hematology Results that were resulted 30 days before or 30 daysafter the date of the Encounter. Date/Time Source Result Type Result - Unit Interpretation Reference Range Comment Apr 29, 2021 [facility] Spe chanceen Type: URINE 01:38 PM [facility] No comment enter ed. Ordering Provid er: CHARISSE GARCIA Report Released Date/Time: Mar 17, 2021 06:59 PM Reporting Lab: [place] [address] [place] [address] Performing Lab: MATIAS CLARK [facility] ; [place] [id number] CODEINE 25670 ng/mL H 0-24 MORPHINE 143 ng/mL H [...] 0-19 Apr 29, 2021 01:38 MATIAS Perera [place] EXPANDED URINE DRUG S pecimen Type: URINE PM [facility] SCREEN Comment: These drug screen results [...] 17, 2021 06:59 PM Reporting Lab: MATIAS [address]EWARD[address] [place] [address] Performing Lab: MATIAS STEWARD[address] [place] [address] CREATININE, URINE 113.2 mg/dL 29-226 AMPHETAMINES/METHAMPHETAMINES SCREEN 87 NEG BARBITURATES SCREEN 11 NEG BENZODIAZEPINES SCREEN 52 NEG CANNABINOIDS SCREEN 23 NEG COCAINE SCREEN 4 NEG METHADONE SCREEN 0 NEG METHADONE METABOLITE (EDDP) SCREEN 71 NEG OPIATES SCREEN 1500 NEG OXYCODONE SCREEN 21 NEG PHENCYCLIDINE (PCP) SCREEN 11 NEG Apr 22, 2021 MATIAS CLARK COVID-19 & FLU Specimen Type: NASOPHARYNX 03:30 PM [facility] DIAGNOSTIC PANEL Comment: Matt Jorge Sanaz ([id number]) (SANAZ) Ordering Provid er: CHARISSE GARCIA Report Released Date/Time: Apr 22, 2021 03:18 PM Reporting Lab: MATIAS CLARK [address] [place] [address] Performing Lab: MATIAS CLARK [address] [place] [address] ANCILLARY INFLUENZA A RNA Not Detected N ot Detected ANCILLARY INFLUENZA B RNA Not Detected N ot Detected COVID-19 (SANAZ) Not Detected Not Detect ed Social History: Smoking Status (Most current) and Tobacco Use (All prior to encounter date) This section includes the most current, and the historical, smoking and tobacco-related health factors from the [place] facility where the Encounter took place.Current Smoking Status This section includes the most current smoking, or tobacco-related health factor, from the [place] facility where the Encounter took place. Date/Time Current Smoking Status Comment Facility Jan 07, 2009 09:40 AM CURRENT TOBACCO USER EDGAR CLARK [facility] Encounter Notes: All associated encounter notes This section contains the clinical notes associated to the Encounter. Date/Time Encounter Note(s) Provider Source Apr 23, 2021 02:11 PM TEAM TELEPHONE ENCOUNTER NOTE: VERÓNICA FISH LOCAL TITLE: CARE MANAGEMENT TELEPHONE NOTE [facility] STANDARD TITLE: TEAM TELEPHONE ENCOUNTER NOTE DATE OF NOTE: APR 23, 2021@14:11 ENTRY DATE: APR 23, 2021@14:11:28 AUTHOR: VERÓNICA FISH EXP COSIGNER: URGENCY: STATUS: COMPLETED CALL TO [facility] ADVISED IS NEGATIVE FOR COVID AND INFLUENZA APPRECIATIVE OF CALL /es/ VERÓNICA FISH RN Signed: 04/23/2021 14:11
--- OUTSIDE RECORDS SUMMARY | 2021-09-20 19:10 | External Medical Summary | Encounter Summary ---
:1980 Author Organization Department [facility] Address [address] [place] [address] Care Team Providers Name Role Phone CHARISSE GARCIA Primary Care Provider Unavailable Selected Encounter This section includes the information on record at [place] for the Encounter. Date/Time Encounter Type Encounter Description Reason Provider Source Apr 23, 2021 03:29 Outpatient Encounter [facility] PM CONSULT IHE Encounter Template Text not used by MT Plan of Treatment: Future Appointments (+ 6 [...] 27, 2021 07:30 AM AMBULATORY - PSYCHIATRY [facility] Apr 29, 2021 02:00 PM AMBULATORY - MEDICINE MATIAS MOYA [facility] Apr 29, 2021 02:30 PM AMBULATORY - MEDICINE [facility] May 12, 2021 02:31 PM AMBULATORY - MEDICINE [facility] Jun 04, 2021 03:00 PM AMBULATORY - MEDICINE [facility] Jun 22, 2021 08:30 AM AMBULATORY - MEDICINE [facility] Jun 29, 2021 01:00 PM AMBULATORY - MEDICINE [facility] Jul 01, 2021 08:00 AM AMBULATORY - NONE MATIAS STEWARD [facility] Jul 07, 2021 07:00 AM AMBULATORY - NONE MATIAS STEWARD [facility] Jul 15, 2021 03:00 PM AMBULATORY - MEDICINE [facility] Jul 26, 2021 09:00 AM AMBULATORY - MEDICINE [facility] Aug 04, 2021 01:00 PM AMBULATORY - MEDICINE [facility] Aug 05, 2021 01:20 PM AMBULATORY - MEDICINE MATIAS GROVES [facility] Aug 06, 2021 08:15 AM AMBULATORY - MEDICINE [facility] Aug 10, 2021 03:30 PM AMBULATORY - MEDICINE [facility] Aug 11, 2021 11:10 AM AMBULATORY - NONE MATIAS STEWARD [facility] Aug 17, 2021 03:00 PM AMBULATORY - MEDICINE [facility] Aug 24, 2021 02:00 PM AMBULATORY - NONE MATIAS GROVESPAT [facility] Aug 25, 2021 01:00 PM AMBULATORY - MEDICINE [facility] Sep 20, 2021 09:00 AM AMBULATORY - NONE MATIAS JUSTINSHARRI [facility] Active, Pending, and Scheduled Orders This section [...] Mar 23, 2021 08:57 AM Consult Order [facility] Cons On Awake Counselor's Choice Lab Results: +/- 30 days of the encounter This section includes the Chemistry and Hematology Lab Results on record with [place] for the patient. Radiology Reports and Pathology Reports are provided separately, in subsequent sections.Lab Results This section contains the Chemistry/Hematology Results that were resulted 30 days before or 30 daysafter the date of the Encounter. Date/Time Source Result Type Result - Unit Interpretation Reference Range Comment Apr 29, 2021 [facility] WITH Spe chanceen Type: URINE 01:38 PM [facility] N[facility]OXONE No comment enter ed. Ordering Provid er: CHARISSE GARCIA Report Released Date/Time: Mar 17, 2021 06:59 PM Reporting Lab: MAT[place]AS [place] [address] [place] [address] Performing Lab: MATIAS CLARK [facility] ; [place] [address] CODEINE 43452 ng/mL H 0-24 MORPHINE 143 ng/mL H [...] 0-19 Apr 29, 2021 01:38 MATIAS Perera [place] EXPANDED URINE DRUG S pecimen Type: URINE PM [facility] SCREEN Comment: These drug screen results [...] 17, 2021 06:59 PM Reporting Lab: MATIAS STEWARD[address] [place] [address] Performing Lab: MATIAS STEWARD[address] [place] [address] CREATININE, URINE 113.2 mg/dL 29-226 AMPHETAMINES/METHAMPHETAMINES SCREEN 87 NEG BARBITURATES SCREEN 11 NEG BENZODIAZEPINES SCREEN 52 NEG CANNABINOIDS SCREEN 23 NEG COCAINE SCREEN 4 NEG METHADONE SCREEN 0 NEG METHADONE METABOLITE (EDDP) SCREEN 71 NEG OPIATES SCREEN 1500 NEG OXYCODONE SCREEN 21 NEG PHENCYCLIDINE (PCP) SCREEN 11 NEG Apr 22, 2021 MATIAS CLARK COVID-19 & FLU Specimen Type: NASOPHARYNX 03:30 PM [facility] DIAGNOSTIC PANEL Comment: Matt Jorge Sanaz (137) (SANAZ) Ordering Provid er: CHARISSE GARCIA Report Released Date/Time: Apr 22, 2021 03:18 PM Reporting Lab: MATIAS CLARK [address] [place] [address] Performing Lab: MATIAS CLARK [address] [place] [address] ANCILLARY INFLUENZA A RNA Not Detected N [...] 09:40 AM CURRENT TOBACCO USER EDGAR CLARK [facility] Encounter Notes: All associated encounter notes This section contains the clinical notes associated to the Encounter. Date/Time Encounter Note(s) Provider Source Apr 23, 2021 03:29 PM ADMINISTRATIVE NOTE: JORDON CHINO LOCAL TITLE: TELEPHONE CONTACT CALL CENTER ADMI N [facility] STANDARD TITLE: ADMINISTRATIVE NOTE DATE OF NOTE: APR 23, 2021@15:29:41 ENTRY DATE: APR 23, 2021@15:32:15 AUTHOR: JORDON CHINO EXP COSIGNER: URGENCY: STATUS: COMPLETED TELEPHONE CONTACT CALL CENTER ADMIN Has ADD ENDA The following identifiers were used to verify th is patient: . SSN. The patient, SANDOR PERERA ([id number]) Phone: [phone] called the call center. Contact Phone Number: [phone] Type of call: V20 PACT MSG. Comments: stated she got a req uest to return call about a Survey and request a C/ B to resolve. Author: JORDON CHINO Evaluation/Management Code: HC PRO PHONE CALL 5- 10 MIN ([id number]). Starting at: 04/23/2021 @ 3:29:41 PM Ending at: 04/23/2021 @ 3:31:20 PM Length: 1 minutes. Caller Area: [address] Chief Complaint: Not applicable to call. Caller Response: V20 RETURN CALL Caller/[place] verbalize understanding; acknowle dges message. Patient's Email Address: [email or web address] Class Code: Other specified counseling. /elina/ JORDON CHINO MSA VISN 20 CALL CENTER Signed: 04/23/2021 15:32 Receipt Acknowledged By: 04/23/2021 16:11 /es/ Scot ANN MSA 04/23/2021 ADDENDUM STATUS: COMPLETED Call placed to . Expl sandyn JAMIL was uncertain about survey results and that possibly a patient advocate called. needed rescheduled with Provider Oliver. Appointment rescheduled. /es/ D MEHNAZ ANN MSA Signed: 04/23/2021 16:11
--- OUTSIDE RECORDS SUMMARY | 2021-09-20 19:10 | External Medical Summary | Encounter Summary ---
:1980 Author Organization Department of [facility] rs Address [address] [place] [address] Care Team Providers Name Role Phone CHARISSE GARCIA Primary Care Provider Unavailable Selected Encounter This section includes the information on record at [place] for the Encounter. Date/Time Encounter Type Encounter Reason Provider Source Description Apr 23, 2021 HC PRO PHONE TELEPHONE PRIMARY ICD-10-CM Z71.89 BRETT FISH 02:30 PM CALL 5-10 MIN CARE Other specified counseling with Provider Comments: Counseling,Oth Specified IHE Encounter Template Text not used by CT Assessments - Encounter Diagnoses This section includes the primary and secondary diagnoses documented for the Encounter. Date/Time Primary/Secondary Diagnosis Name Provider Source Diagnosis Apr 23, 2021 PRIMARY Other specified VERÓNICA FISH [facility] 02:30 PM counseling CLINIC Plan of Treatment: Future Appointments (+ 6 months) and Future Tests (+/- 45 days) The Plan of Treatment section includes future care activities for the patient from all CT treatmentfacilities. This section includes future appointments and future orders which are active, pending orscheduled.Future Appointments This section includes appointments that were scheduled to occur 6 months from the date of the Encounter, up to a maximum of 20 appointments. The data comes from all CT treatment facilities. Appointment Date/Time Appointment Type Appointment Facili ty Name Apr 27, 2021 07:30 AM AMBULATORY - PSYCHIATRY [facility] Apr 29, 2021 02:00 PM AMBULATORY - MEDICINE MATIAS MOYA [facility] Apr 29, 2021 02:30 PM AMBULATORY - MEDICINE [facility] CL[facility] May 12, 2021 02:31 PM AMBULATORY - MEDICINE [facility] Jun 04, 2021 03:00 PM AMBULATORY - MEDICINE [facility] Jun 22, 2021 08:30 AM AMBULATORY - MEDICINE [facility] Jun 29, 2021 01:00 PM AMBULATORY - MEDICINE [facility] Jul 01, 2021 08:00 AM AMBULATORY - NONE MATIAS STEWARD [facility] Jul 07, 2021 07:00 AM AMBULATORY - NONE MATIAS STEWARD [facility] Jul 15, 2021 03:00 PM AMBULATORY - MEDICINE [facility] CL[facility] Jul 26, 2021 09:00 AM AMBULATORY - MEDICINE [facility] Aug 04, 2021 01:00 PM AMBULATORY - MEDICINE [facility] Aug 05, 2021 01:20 PM AMBULATORY - MEDICINE MATIAS GROVES [facility] Aug 06, 2021 08:15 AM AMBULATORY - MEDICINE [facility] Aug 10, 2021 03:30 PM AMBULATORY - MEDICINE [facility] Aug 11, 2021 11:10 AM AMBULATORY - NONE MATIAS STEWARD [facility] Aug 17, 2021 03:00 PM AMBULATORY - MEDICINE [facility] Aug 24, 2021 02:00 PM AMBULATORY - NONE MATIAS STEWARD [facility] Aug 25, 2021 01:00 PM AMBULATORY - MEDICINE [facility] Sep 20, 2021 09:00 AM AMBULATORY - NONE MATIAS STEWARD [facility] Active, Pending, and Scheduled Orders This section includes a listing of several types of active, pending, and scheduled orders, including clinic medications orders, diagnostic test orders, procedure orders and consult orders; where the start date of the order is 45 days before the date of the Encounter or 45 days after the date of the Encounter. The data comes from all CT treatment facilities. Test Date/Time Test Type Test Details Facility Name Mar 23, 2021 08:57 AM Consult Order [facility] Cons Electronic Warfare Officer's Choice Surgical Procedures: All associated to the encounter This section includes all Surgical Procedures and Surgical Procedure Notes associated to the Encounter.Surgical Procedures This section includes all Surgical Procedures associated to the Encounter.Surgical Procedure Date/Time Procedure Procedure Type Procedure Provider Source Qualifiers Apr 23, 2021 PHONE CALL BY HC PRO VERÓNICA JARQUIN CT 02:30 PM HC PROF 5-10 CALL 5-10 MIN CLINIC MIN Surgical Notes There are no notes associat ed with this procedure. Lab Results: +/- 30 days of the [...] Range Comment Apr 29, 2021 [facility] OPIATE PANEL WITH Misa fletcheren Type: URINE 01:38 PM [facility] No comment enter ed. Ordering Provid er: CHARISSE GARCIA Report Released Date/Time: Mar 17, 2021 06:59 PM Reporting Lab: MATIAS Perera [facility] [address] [place] [address] Performing Lab: MATIAS Perera [facility] ; [place] [address] CODEINE 90309 ng/mL H 0-24 MORPHINE 143 ng/mL H [...] ng/mL 0-19 Apr 29, 2021 01:38 MATIAS STEWARDIGHT EXPANDED URINE DRUG S pecimen Type: URINE PM [facility] SCREEN Comment: These drug screen results are presumptive only. For unexpected results, confirmatory testing is available if requested in a timely manner. Results are to be used for medical purposes only. Uri ne creatinine al lu <20 mg/dL should be considered a dilute sample. CREATININE, URINE reference ranges apply to first morning void. Ordering Provid er: CHARISSE GARCIA Report Released Date/Time: Mar 17, 2021 06:59 PM Reporting Lab: MATIAS CLARK [place] [address] [place] [address] Performing Lab: [place] [address] [place] [address] CREATININE, URINE 113.2 mg/dL 29-226 AMPHETAMINES/METHAMPHETAMINES SCREEN 87 NEG BARBITURATES SCREEN 11 NEG BENZODIAZEPINES SCREEN 52 NEG CANNABINOIDS SCREEN 23 NEG COCAINE SCREEN 4 NEG METHADONE SCREEN 0 NEG METHADONE METABOLITE (EDDP) SCREEN 71 NEG OPIATES SCREEN 1500 NEG OXYCODONE SCREEN 21 NEG PHENCYCLIDINE (PCP) SCREEN 11 NEG Apr 22, 2021 MATIAS CLARK COVID-19 & FLU Specimen Type: NASOPHARYNX 03:30 PM [facility] DIAGNOSTIC PANEL Comment: Matt Jorge Sanaz (687) (SANAZ) Ordering Provid er: CHARISSE GARCIA Report Released Date/Time: Apr 22, 2021 03:18 PM Reporting Lab: MATIAS CLARK [place] [address] [place] [address] Performing Lab: MATIAS STEWARD[address] [place] [address] ANCILLARY INFLUENZA A RNA Not Detected N ot Detected ANCILLARY INFLUENZA B RNA Not Detected N ot Detected COVID-19 (SANAZ) Not Detected Not Detect ed Social History: Smoking Status (Most current) and Tobacco Use (All prior to encounter date) This section includes the most current, and the historical, smoking and tobacco-related health factors from the CT facility where the Encounter took place.Current Smoking Status This section includes the most current smoking, or tobacco-related health factor, from the CT facility where the Encounter took place. Date/Time Current Smoking Status Comment Facility Feb 23, 2021 02:[address]-TOBACCO FORMER USER [facility] Tobacco Use History This section includes a history of the smoking, or tobacco- related health factors, that were collected on or before the date of the Encounter. The data comes from the CT facility where the Encounter took place. 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 NO [facility] Jul 25, 2019 01:50 PM VA-TOBACCO USE MED NOTIFY [facility] PROVIDER Jul 25, 2019 01:50 PM VA-TOBACCO USER EVERY DAY [facility] Jul 09, 2018 03:00 PM VA-TOBACCO USE > 15 LESS [facility] THAN 30 YEARS Jul 09, 2018 03:00 PM VA-TOBACCO USE ADVICE [facility] Jul 09, 2018 03:00 PM VA-TOBACCO USE RETAIL 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 NO [facility] Jul 09, 2018 03:00 PM VA-TOBACCO USE MED NO [facility] Jul 09, 2018 03:00 PM VA-TOBACCO USE WI 30 MIN [facility] OF WAKEUP Jul 09, 2018 03:00 PM VA-TOBACCO USER EVERY DAY [facility] Jan 10, 2018 12:55 PM TOBACCO MEDICATION [facility] INTERVENTION Sep 19, 2017 09:33 AM CURRENT TOBACCO USER [facility] Sep 19, 2017 09:33 AM TOBACCO SCREEN COMPLETED [facility] No, not willing to quit now Aug 12, 2016 01:53 PM CURRENT TOBACCO USER [facility] Aug 12, 2016 01:53 PM TOBACCO MEDICATION [facility] [facility] REFERRAL Dilma CADET Aug 12, 2016 01:53 PM TOBACCO SCREEN COMPLETED [facility] Yes, willing to quit now May 30, 2013 11:04 AM LIFETIME NON-USER OF [facility] TOBACCO Feb 22, 2012 09:19 AM CURRENT TOBACCO USER [facility] Feb 22, 2012 09:19 AM TOBACCO SCREEN COMPLETED [facility] No, not willing to quit now Mar 07, 2011 11:32 AM TOBACCO MEDICATION [place] [facility] INTERVENTION Feb 25, 2011 10:38 AM CURRENT TOBACCO USER Severity= MINIMAL ANA PAULA MORENO [facility] Feb 25, 2011 10:38 AM TOBACCO MEDICATION Severity= MINIMAL BRIT PEREZ [facility] REFERRAL DR HALEY Feb 25, 2011 10:38 AM TOBACCO SCREEN COMPLETED Severity= MINIMA L [facility] Yes, willing to quit now Sep 27, 2010 11:38 AM TOBACCO MEDICATION [place] [facility] INTERVENTION Sep 27, 2010 11:38 AM TOBACCO MEDICATION ORDERED [facility] Jan 04, 2010 10:28 AM CURRENT TOBACCO USER [facility] Jan 04, 2010 10:28 AM TOBACCO MEDICATION [place] [facility] INTERVENTION Jan 04, 2010 10:28 AM TOBACCO MEDICATION ORDERED [facility] Jan 04, 2010 10:28 AM TOBACCO MEDICATION [facility] N [facility] REFERRAL DR. CANELA Encounter Notes: All associated encounter notes This section contains the clinical notes associated to the Encounter. Date/Time Encounter Note(s) Provider Source Apr 23, 2021 02:11 PM TEAM TELEPHONE ENCOUNTER NOTE: VERÓNICA FISH [facility] LOCAL TITLE: CARE MANAGEMENT TELEPHONE NOTE STANDARD TITLE: TEAM TELEPHONE ENCOUNTER NOTE DATE OF NOTE: APR 23, 2021@14:11 ENTRY DATE: APR 23, 2021@14:11:28 AUTHOR: VERÓNICA FISH EXP COSIGNER: URGENCY: STATUS: COMPLETED CALL TO VET ADVISED IS NEGATIVE FOR COVID AND INFLUENZA APPRECIATIVE OF CALL /es/ VERÓNICA FISH RN Signed: 04/23/2021 14:11
--- OUTSIDE RECORDS SUMMARY | 2021-09-20 19:11 | External Medical Summary | Encounter Summary ---
:1980 Author Organization Department [facility] Address [address] [place] [address] Care Team Providers Name Role Phone RADHA CHARISSE Primary Care Provider Unavailable Selected Encounter This section includes the information on record at [place] for the Encounter. Date/Time Encounter Type Encounter Reason Provider Source Description Apr 12, 2021 01:15 Outpatient PRIMARY VERÓNICA FISH PM Encounter CARE/MEDICINE [...] Appointment Type Appointment Facili ty Name Apr 22, 2021 03:15 PM AMBULATORY - MEDICINE [facility] Apr 23, 2021 02:30 PM AMBULATORY - MEDICINE [facility] Apr 27, 2021 07:30 AM AMBULATORY - PSYCHIATRY [facility] Apr 29, 2021 02:00 PM AMBULATORY - MEDICINE MATIAS MOYA [facility] Apr 29, 2021 02:30 PM AMBULATORY - MEDICINE [facility] IC May 12, 2021 02:31 PM AMBULATORY - MEDICINE [facility] Jun 04, 2021 03:00 PM AMBULATORY - MEDICINE [facility] Jun 22, 2021 08:30 AM AMBULATORY - MEDICINE [facility] Jun 29, 2021 01:00 PM AMBULATORY - MEDICINE [facility] Jul 01, 2021 08:00 AM AMBULATORY - NONE [facility]IAS GeeBianka [facility] Jul 07, 2021 07:00 AM AMBULATORY - NONE MATIAS GeeBianka STEWARD [facility] Jul 15, 2021 03:00 PM AMBULATORY - MEDICINE [facility] Jul 26, 2021 09:00 AM AMBULATORY - MEDICINE [facility] Aug 04, 2021 01:00 PM AMBULATORY - MEDICINE [facility] Aug 05, 2021 01:20 PM AMBULATORY - MEDICINE MATIAS GROVES MOYA [facility] Aug 06, 2021 08:15 AM AMBULATORY - MEDICINE [facility] Aug 10, 2021 03:30 PM AMBULATORY - MEDICINE [facility] Aug 11, 2021 11:10 AM AMBULATORY - NONE MATIAS MBianka STEWARD [facility] Aug 17, 2021 03:00 PM AMBULATORY - MEDICINE [facility] Aug 24, 2021 02:00 PM AMBULATORY - NONE MATIAS MBianka NHANSHARRI [facility] Active, Pending, and Scheduled Orders This section includes a listing of several types of active, pending, and scheduled orders, including clinic medications orders, diagnostic test orders, procedure orders and consult orders; where the start date of the order is 45 days before the date of the Encounter or 45 days after the date of the Encounter. The data comes from all [place] treatment facilities. Test Date/Time Test Type Test Details Facility Name Mar 23, 2021 08:57 AM Consult Order [facility] Cons Drop Wire Aliner's Choice Lab Results: +/- 30 days of the encounter This section includes the Chemistry and Hematology Lab Results on record with [place] for the patient. Radiology Reports and Pathology Reports are provided separately, in subsequent sections.Lab Results This section contains the Chemistry/Hematology Results that were resulted 30 days before or 30 daysafter the date of the Encounter. Date/Time Source Result Type Result - Unit Interpretation Reference Range Comment Apr 29, 2021 [facility] WITH Spe chanceen Type: URINE 01:38 PM [facility] N[facility]OXONE No comment enter ed. Ordering Provid er: CHARISSE KENNEDY Report Released Date/Time: Mar 17, 2021 06:59 PM Reporting Lab: MAT[place]AS [place] [address] [place] [address] Performing Lab: MATIAS CLARK [facility] ; [place] [address] CODEINE 86389 ng/mL H 0-24 MORPHINE 143 ng/mL H [...] 0-19 Apr 29, 2021 01:38 MATIAS Perera [place] EXPANDED URINE DRUG S pecimen Type: URINE PM [facility] SCREEN Comment: These drug screen results [...] 17, 2021 06:59 PM Reporting Lab: MATIAS STEWARD[address] [place] [address] Performing Lab: MATIAS STEWARD[address] [place] [address] CREATININE, URINE 113.2 mg/dL 29-226 AMPHETAMINES/METHAMPHETAMINES SCREEN 87 NEG BARBITURATES SCREEN 11 NEG BENZODIAZEPINES SCREEN 52 NEG CANNABINOIDS SCREEN 23 NEG COCAINE SCREEN 4 NEG METHADONE SCREEN 0 NEG METHADONE METABOLITE (EDDP) SCREEN 71 NEG OPIATES SCREEN 1500 NEG OXYCODONE SCREEN 21 NEG PHENCYCLIDINE (PCP) SCREEN 11 NEG Apr 22, 2021 MATIAS CLARK COVID-19 & FLU Specimen Type: NASOPHARYNX 03:30 PM [facility] DIAGNOSTIC PANEL Comment: Matt Jorge Sanaz (687) (SANAZ) Ordering Provid er: CHARISSE KENNEDY Report Released Date/Time: Apr 22, 2021 03:18 PM Reporting Lab: MATIAS STEWARD[address] [place] [address] Performing Lab: MATIAS CLARK [address] [place] [address] ANCILLARY INFLUENZA A RNA Not Detected N [...] 09:40 AM CURRENT TOBACCO USER EDGAR Perera [facility] Encounter Notes: All associated encounter notes This section contains the clinical notes associated to the Encounter. Date/Time Encounter Note(s) Provider Source Apr 12, 2021 01:15 PM PRIMARY CARE SECURE MESSAGING: VERÓNICA FISH [facility] LOCAL TITLE: PRIMARY CARE SECURE MESSAGING STANDARD TITLE: PRIMARY CARE SECURE MESSAGING DATE OF NOTE: APR 12, 2021@13:15:59 ENTRY DATE: APR 12, 2021@10:16 AUTHOR: VERÓNICA FISH EXP COSIGNER: URGENCY: STATUS: COMPLETED ------Original Message Sent: 04/12/2021 01:15 PM From: VERÓNICA FISH To: BARBARA PERERA Subject: General Inquiry jolly, pharmacy states to your request for refil l of chantix. jolly, your recent request for refill of chantix. per recomm endations from pharmacy. 04/06/2021 ADDENDUM STATUS: COMPLETED varenicline works best when taken for 12 consecu tive weeks, and the option to continue beyond 12 weeks if successful quitting during the first course for a total of 24 weeks consecutive therapy. starter pack/initial fill Filled: 07/25/19 (Mail) released 07/26/19 maintenance dose Filled: 08/18/20 (Mail) released 08/19/20 09/05/20 (Mail) released 08/29/20 patient has completed 12 weeks of therapy. recommend team explore other options with her to include HPDP V[facility] group, 1:1 c/ addiction therapy/SW; bupropion +/- NRT (patches, gum, lozenges) are available as alternatives. might be good for you to have a tele appt with flako kennedy to discuss above. please feel free to call clinic t o schedule if you would like unless you would just like to try one of the abo ve mentioned treatments. Guillermo JACKMAN /elina/ VERÓNICA FISH RN Signed: 04/12/2021 10:16
--- OUTSIDE RECORDS SUMMARY | 2021-09-20 19:11 | External Medical Summary | Encounter Summary ---
:[address] [facility] Address [address] [place] [id number] Care Team Providers Name Role Phone RADHA CHARISSE Primary Care Provider Unavailable Selected Encounter This section includes the information on record at [place] for the Encounter. Date/Time Encounter Type Encounter Reason Provider Source Description Apr 06, 2021 01:26 Outpatient PRIMARY VERÓNICA FISH PM Encounter CARE/MEDICINE [...] 22, 2021 03:15 PM AMBULATORY - MEDICINE [facility] Apr 23, 2021 02:30 PM AMBULATORY - MEDICINE [facility] Apr 27, 2021 07:30 AM [facility] Apr 29, 2021 02:00 PM AMBULATORY - MEDICINE MATIAS MOYA [facility] Apr 29, 2021 02:30 PM AMBULATORY - MEDICINE [facility] May 12, 2021 02:31 PM AMBULATORY - MEDICINE [facility] Jun 04, 2021 03:00 PM AMBULATORY - MEDICINE [facility] Jun 22, 2021 08:30 AM AMBULATORY - MEDICINE [facility] Jun 29, 2021 01:00 PM AMBULATORY - MEDICINE [facility] Jul 01, 2021 08:00 AM AMBULATORY - NONE MATIAS GeeBianka JUSTINRENEPAT [facility] Jul 07, 2021 07:00 AM AMBULATORY - NONE MATIAS GeeBianka STEWARD [facility] Jul 15, 2021 03:00 PM AMBULATORY - MEDICINE [facility] Jul 26, 2021 09:00 AM AMBULATORY - MEDICINE [facility] Aug 04, 2021 01:00 PM AMBULATORY - MEDICINE [facility] Aug 05, 2021 01:20 PM AMBULATORY - MEDICINE MATIAS GROVES MOYA [facility] Aug 06, 2021 08:15 AM AMBULATORY - MEDICINE [facility] Aug 10, 2021 03:30 PM AMBULATORY - MEDICINE [facility] Aug 11, 2021 11:10 AM AMBULATORY - NONE MATIAS MBianka STEWARD [facility] Aug 17, 2021 03:00 PM AMBULATORY - MEDICINE [facility] Aug 24, 2021 02:00 PM AMBULATORY - NONE MATIAS MBianka NHANSHARRI [facility] Active, Pending, and Scheduled Orders This section includes a listing of several types of active, pending, and scheduled orders, including clinic medications orders, diagnostic test orders, procedure orders and consult orders; where the start date of the order is 45 days before the date of the Encounter or 45 days after the date of the Encounter. The data comes from all [place] treatment facilities. Test Date/Time Test Type Test Details Facility Name Mar 23, 2021 08:57 AM Consult Order [facility] [place] Cons Receptionist Telephone Operator's Choice Lab Results: +/- 30 days of [...] Reference Range Comment Apr 29, 2021 [facility] WITH Spe chanceen Type: URINE 01:38 PM [facility] [place] No comment enter ed. Ordering Provid er: CHARISSE KENNEDY Report Released Date/Time: Mar 17, 2021 06:59 PM Reporting Lab: MATIAS [place] [address] [place] [address] Performing Lab: MATIAS CLARK [facility] ; [place] [address] CODEINE 03275 ng/mL H 0-24 MORPHINE 143 ng/mL H [...] 0-19 Apr 29, 2021 01:38 MATIAS Perera [place] EXPANDED URINE DRUG S pecimen Type: URINE PM [facility] SCREEN Comment: These drug screen results [...] 17, 2021 06:59 PM Reporting Lab: MATIAS [address]EW[address] [place] [address] Performing Lab: MATIAS STEWARD[address] [place] [address] CREATININE, URINE 113.2 mg/dL 29-226 AMPHETAMINES/METHAMPHETAMINES SCREEN 87 NEG BARBITURATES SCREEN 11 NEG BENZODIAZEPINES SCREEN 52 NEG CANNABINOIDS SCREEN 23 NEG COCAINE SCREEN 4 NEG METHADONE SCREEN 0 NEG METHADONE METABOLITE (EDDP) SCREEN 71 NEG OPIATES SCREEN 1500 NEG OXYCODONE SCREEN 21 NEG PHENCYCLIDINE (PCP) SCREEN 11 NEG Apr 22, 2021 MATIAS CLARK COVID-19 & FLU Specimen Type: NASOPHARYNX 03:30 PM [facility] DIAGNOSTIC PANEL Comment: Matt Jorge Sanaz ([phone]) (SANAZ) Ordering Provid er: CHARISSE KENNEDY Report Released Date/Time: Apr 22, 2021 03:18 PM Reporting Lab: MATIAS CLARK [address] [place] [address] Performing Lab: MATIAS CLARK [address] [place] [address] ANCILLARY INFLUENZA A RNA Not Detected N [...] 09:40 AM CURRENT TOBACCO USER EDGAR Perera [facility] Encounter Notes: All associated encounter notes This section contains the clinical notes associated to the Encounter. Date/Time Encounter Note(s) Provider Source Apr 06, 2021 01:26 PM PRIMARY CARE SECURE MESSAGING: VERÓNICA FISH [facility] LOCAL TITLE: PRIMARY CARE SECURE MESSAGING STANDARD TITLE: PRIMARY CARE SECURE MESSAGING DATE OF NOTE: APR 06, 2021@13:26:33 ENTRY DATE: APR 06, 2021@10:26:34 AUTHOR: VERÓNICA FISH EXP COSIGNER: URGENCY: STATUS: COMPLETED ------Original Message Sent: 04/06/2021 01:26 PM From: VERÓNICA FISH To: BARBARA PERERA Subject: General Inquiry hello, your recent request for refill of chantix . per recommendations from pharmacy. 04/06/2021 ADDENDUM STATUS: COMPLETED varenicline [...] explore other options with her to include [facility], 1:1 c/ addiction therapy/SW; bupropion +/- NRT (patches, gum, lozenges) are available as alternatives. note to team on above. /elina/ JAIDEN MARLOW, PHARM D, BCACP CLINICAL VENEER MATCHER Signed: 04/06/2021 08:57 this note will be given to dulce kennedy for review and action upon her return next week. Guillermo JACKMAN /elina/ VERÓNICA FISH RN Signed: 04/06/2021 10:26
--- OUTSIDE RECORDS SUMMARY | 2021-09-20 19:11 | External Medical Summary | Encounter Summary ---
:[address] [facility] Address [address] [place] [id number] Care Team Providers Name Role Phone CHARISSE GARCIA Primary Care Provider Unavailable Selected Encounter This section includes the information on record at [place] for the Encounter. Date/Time Encounter Type Encounter Description Reason Provider Source Apr 06, 2021 08:24 Outpatient Encounter PRIMARY CARE/MEDICINE PM I[facility] Encounter Template Text not used by [place] Plan of Treatment: Future Appointments (+ 6 months) and Future Tests (+/- 45 days) The Plan of Treatment section includes future care activities for the patient from all [place] treatmentfacilities. This section includes future appointments and future orders which are active, pending orscheduled.Future Appointments This section includes appointments that were scheduled to occur 6 months from the date of the Encounter, up to a maximum of 20 appointments. The data comes from all [place] treatment facilities. Appointment Date/Time Appointment Type Appointment Facili ty Name Apr 22, 2021 03:15 PM AMBULATORY - MEDICINE [facility] Apr 23, 2021 02:30 PM AMBULATORY - MEDICINE [facility] Apr 27, 2021 07:30 AM AMBULATORY - PS[facility]IATRY [facility] Apr 29, 2021 02:00 PM AMBULATORY - MEDICINE MATIAS MOYA [facility] Apr 29, 2021 02:30 PM AMBULATORY - MEDICINE [facility] May 12, 2021 02:31 PM AMBULATORY - MEDICINE [facility] Jun 04, 2021 03:00 PM AMBULATORY - MEDICINE [facility] Jun 22, 2021 08:30 AM AMBULATORY - MEDICINE [facility] Jun 29, 2021 01:00 PM AMBULATORY - MEDICINE [facility] Jul 01, 2021 08:00 AM AMBULATORY - NONE MATIAS GeeBianka JUSTINRENEPAT [facility] Jul 07, 2021 07:00 AM AMBULATORY - NONE [facility]IAS GROVESPAT [facility] Jul 15, 2021 03:00 PM AMBULATORY - MEDICINE [facility] Jul 26, 2021 09:00 AM AMBULATORY - MEDICINE [facility] Aug 04, 2021 01:00 PM AMBULATORY - MEDICINE [facility] Aug 05, 2021 01:20 PM AMBULATORY - MEDICINE MATIAS MOYA [facility] Aug 06, 2021 08:15 AM AMBULATORY - MEDICINE [facility] Aug 10, 2021 03:30 PM AMBULATORY - MEDICINE [facility] Aug 11, 2021 11:10 AM AMBULATORY - NONE MATIAS GeeBianka STEWARD [facility] Aug 17, 2021 03:00 PM AMBULATORY - MEDICINE [facility] Aug 24, 2021 02:00 PM AMBULATORY - NONE MATIAS MBianka NHANSHARRI [facility] Active, Pending, and Scheduled Orders This section includes a listing of several types of active, pending, and scheduled orders, including clinic medications orders, diagnostic test orders, procedure orders and consult orders; where the start date of the order is 45 days before the date of the Encounter or 45 days after the date of the Encounter. The data comes from all [place] treatment facilities. Test Date/Time Test Type Test Details Facility Name Mar 23, 2021 08:57 AM Consult Order [facility] Cons Lobster Man's Choice Lab Results: +/- 30 days of the encounter This section includes the Chemistry and Hematology Lab Results on record with [place] for the patient. Radiology Reports and Pathology Reports are provided separately, in subsequent sections.Lab Results This section contains the Chemistry/Hematology Results that were resulted 30 days before or 30 daysafter the date of the Encounter. Date/Time Source Result Type Result - Unit Interpretation Reference Range Comment Apr 29, 2021 [facility] O[facility] PAN[facility] WITH Spe chanceen Type: URINE 01:38 PM [facility] [place] No comment enter ed. Ordering Provid er: CHARISSE GARCIA Report Released Date/Time: Mar 17, 2021 06:59 PM Reporting Lab: MATIAS STEWARD[address] [place] [address] Performing Lab: MATIAS CLARK [facility] ; [place] [address] CODEINE 57635 ng/mL H 0-24 MORPHINE 143 ng/mL H [...] 0-19 Apr 29, 2021 01:38 MATIAS Perera [place] EXPANDED URINE DRUG S pecimen Type: URINE PM [facility] SCREEN Comment: These drug screen results [...] 17, 2021 06:59 PM Reporting Lab: MATIAS STEWARD[address] [place] [address] Performing Lab: MATIAS GROVES[address] [place] [address] CREATININE, URINE 113.2 mg/dL 29-226 AMPHETAMINES/METHAMPHETAMINES SCREEN 87 NEG BARBITURATES SCREEN 11 NEG BENZODIAZEPINES SCREEN 52 NEG CANNABINOIDS SCREEN 23 NEG COCAINE SCREEN 4 NEG METHADONE SCREEN 0 NEG METHADONE METABOLITE (EDDP) SCREEN 71 NEG OPIATES SCREEN 1500 NEG OXYCODONE SCREEN 21 NEG PHENCYCLIDINE (PCP) SCREEN 11 NEG Apr 22, 2021 MATIAS CLARK COVID-19 & FLU Specimen Type: NASOPHARYNX 03:30 PM [facility] DIAGNOSTIC PANEL Comment: Matt Jorge Sanaz ([phone]) (SANAZ) Ordering Provid er: CHARISSE GARCIA Report Released Date/Time: Apr 22, 2021 03:18 PM Reporting Lab: MATIAS Perera [address] [place] [place] [address] Performing Lab: MATIAS Perera [address] [place] [address] ANCILLARY INFLUENZA A RNA Not Detected N ot Detected ANCILLARY INFLUENZA B RNA Not Detected N ot Detected COVID-19 (SANAZ) Not Detected Not Detect ed Social History: Smoking Status (Most current) and Tobacco Use (All prior to encounter date) This section includes the most current, and the historical, smoking and tobacco-related health factors from the [place] facility where the Encounter took place.Current Smoking Status This section includes the most current smoking, or tobacco-related health factor, from the [place] facility where the Encounter took place. Date/Time Current Smoking Status Comment Facility Jan 07, 2009 09:40 AM CURRENT TOBACCO USER EDGAR Perera [facility] Encounter Notes: All associated encounter notes This section contains the clinical notes associated to the Encounter. Date/Time Encounter Note(s) Provider Source Apr 06, 2021 08:24 PM PRIMARY CARE E & M NOTE: CHARISSE GARCIA [facility] LOCAL TITLE: PRIMARY CARE PROVIDER NOTE STANDARD TITLE: PRIMARY CARE E & M NOTE DATE OF NOTE: APR 06, 2021@20:24 ENTRY DATE: APR 06, 2021@20:24:40 AUTHOR: CHARISSE GARCIA EXP COSIGNER: URGENCY: STATUS: COMPLETED PRIMARY CARE PROVIDER NOTE Has ADDENDA Clinical Reminders Done Today Cervical Cancer Screening: See orders tab for any orders that may have been placed The patient has had a documented normal Pap sme ar completed previously. Date: March 16, 2015 The patient has had screening for cervical HPV previously and the results were positive. Intermediate or high risk HPV wa s detected. Date: March 16, 2015 Changed Pap smear screening frequency to every 5 years. Comment: 2019 previous paps 2016 refused /elina/ Charisse CADET Nurse Practitioner Signed: 04/06/2021 20:27 04/06/2021 ADDENDUM STATUS: COMPLETED Correction from above reminder Clinical Reminders Done Today Cervical Cancer Screening: The patient has had a documented normal Pap sme ar completed previously. Date: May 25, 2017 Comment: waiting on results The Pap smear reminder is being deferred. Reason: Waiting for outside results. COPER HAND consult 03/23/2021 pending results Tyesha request last pap results Dr Randolph 05/25/20 17 and followup orders /elina/ Charisse CADET Nurse Practitioner Signed: 04/06/2021 20:56 Receipt Acknowledged By: 04/09/2021 16:23 /es/ D TYESHA ANN MSA 04/09/2021 ADDENDUM STATUS: COMPLETED Records requested. /es/ D TYESHA ANN MSA Signed: 04/09/2021 16:23
--- OUTSIDE RECORDS SUMMARY | 2021-09-20 19:11 | External Medical Summary | Encounter Summary ---
:1980 Author Organization Department of [facility] Address [address] [place] [id number] Care Team Providers Name Role Phone CHARISSE GARCIA Primary Care Provider Unavailable Selected Encounter This section includes the information on record at [place] for the Encounter. Date/Time Encounter Type Encounter Reason Provider Source Description Apr 22, 2021 OFFICE O/P EST PRIMARY ICD-10-CM VERÓNICA FISH 03:15 PM MINIMAL PROB CARE/MEDICINE Z11.52 Encounter for screening for COVID-19 with Provider Comments: Screen for COVID-19 IHE Encounter Template Text not used by [facility] Assessments - Encounter Diagnoses This section includes the primary and secondary diagnoses documented for the Encounter. Date/Time Primary/Secondary Diagnosis Name Provider Source Diagnosis Apr 22, 2021 PRIMARY Encounter for ABEVERÓNICA S [facility] 03:38 PM screening for CLINIC COVID-19 Plan of Treatment: Future Appointments (+ 6 months) and Future Tests (+/- 45 days) The Plan of Treatment section includes future care activities for the patient from all [place] treatmentfacilities. This section includes future appointments and future orders which are active, pending orscheduled.Future Appointments This section includes appointments that were scheduled to occur 6 months from the date of the Encounter, up to a maximum of 20 appointments. The data comes from all [place] treatment facilities. Appointment Date/Time Appointment Type Appointment Facili ty Name Apr 23, 2021 02:30 PM AMBULATORY - MEDICINE [facility] Apr 27, 2021 07:30 AM AMBULATORY - PSYCHIATRY [facility] Apr 29, 2021 02:00 PM AMBULATORY - MEDICINE MATIASBAKARI GROVES MOYA [facility] Apr 29, 2021 02:30 PM AMBULATORY - MEDICINE [facility] May 12, 2021 02:31 PM AMBULATORY - MEDICINE [facility] Jun 04, 2021 03:00 PM AMBULATORY - MEDICINE [facility] Jun 22, 2021 08:30 AM AMBULATORY - MEDICINE [facility] Jun 29, 2021 01:00 PM AMBULATORY - MEDICINE [facility] Jul 01, 2021 08:00 AM AMBULATORY - NONE MATIAS M. BIN [facility] Jul 07, 2021 07:00 AM AMBULATORY - NONE MATIAS M. BIN [facility] Jul 15, 2021 03:00 PM AMBULATORY - MEDICINE [facility] Jul 26, 2021 09:00 AM AMBULATORY - MEDICINE [facility] Aug 04, 2021 01:00 PM AMBULATORY - MEDICINE [facility] Aug 05, 2021 01:20 PM AMBULATORY - MEDICINE MATIAS MBianka JUSTINRENE NITA [facility] Aug 06, 2021 08:15 AM AMBULATORY - MEDICINE [facility] Aug 10, 2021 03:30 PM AMBULATORY - MEDICINE [facility] Aug 11, 2021 11:10 AM AMBULATORY - NONE MATIAS MBianka STEWARD [facility] Aug 17, 2021 03:00 PM AMBULATORY - MEDICINE [facility] Aug 24, 2021 02:00 PM AMBULATORY - NONE MATIAS JUSTINSHARRI [facility] Aug 25, 2021 01:00 PM AMBULATORY - MEDICINE [facility] Active, Pending, and Scheduled Orders This section includes a listing of several types of active, pending, and scheduled orders, including clinic medications orders, diagnostic test orders, procedure orders and consult orders; where the start date of the order is 45 days before the date of the Encounter or 45 days after the date of the Encounter. The data comes from all [place] treatment facilities. Test Date/Time Test Type Test Details Facility Name Mar 23, 2021 08:57 AM Consult Order [facility] Cons Bacon Slicer's Choice Lab Results: +/- 30 days of [...] Reference Range Comment Apr 29, 2021 [facility] WITH Misa fletcheralex Type: URINE 01:38 PM [facility] NALOXONE No comment enter ed. Ordering Provid er: CHARISSE GARCIA Report Released Date/Time: Mar 17, 2021 06:59 PM Reporting Lab: MATIAS CLARK [place] [address] [place] [id number] Performing Lab: MATIAS Perera [facility] ; [place] [address] CODEINE 63767 ng/mL H 0-24 MORPHINE 143 ng/mL H [...] 17, 2021 06:59 PM Reporting Lab: MATIAS [place]ARD[place] [address] [place] [address] Performing Lab: MATIAS STEWARD[address] [place] [address] CREATININE, URINE 113.2 mg/dL 29-226 AMPHETAMINES/METHAMPHETAMINES SCREEN [...] HOSPITAL DIAGNOSTIC PANEL Comment: Matt Jorge Sanaz ([phone]) (SANAZ) Ordering Provid er: CHARISSE GARCIA Report Released Date/Time: Apr 22, 2021 03:18 PM Reporting Lab: MATIAS CLARK [place] [address] [place] [address] Performing Lab: MATIAS CLARK [address] [place] [address] ANCILLARY INFLUENZA A RNA Not Detected N ot Detected ANCILLARY INFLUENZA B RNA Not Detected N ot Detected COVID-19 (SANAZ) Not Detected Not Detect ed Social History: Smoking Status (Most current) and Tobacco Use (All prior to encounter date) This section includes the most current, and the historical, smoking and tobacco-related health factors from the [place] facility where the Encounter took place.Current Smoking Status This section includes the most current smoking, or tobacco-related health factor, from the [place] facility where the Encounter took place. Date/Time Current Smoking Status Comment Facility Feb 23, 2021 02:00 PM VA-TOBACCO FORMER USER [facility] Tobacco Use History This section includes a history of the smoking, or tobacco- related health factors, that were collected on or before the date of the Encounter. The data comes from the [place] facility where the Encounter took place. Date/Time Smoking Status/Tobacco Use Comment [facility] Feb 23, 2021 02:00 PM VA-TOBACCO QUIT < 1 YEAR [facility] Jul 25, 2019 01:50 PM VA-TOBACCO DOESNT USE [place] [facility] 30 MIN WAKEUP Jul 25, 2019 01:50 PM VA-TOBACCO USE > 15 LESS L [facility] THAN 30 YEARS Jul 25, 2019 01:50 PM VA-TOBACCO USE ADVICE [facility] Jul 25, 2019 01:50 PM VA-TOBACCO USE EMERGENCY MEDICAL SERVICE COORDINATOR NO [facility] Jul 25, 2019 01:50 PM VA-TOBACCO USE MED NOTIFY [facility] PROVIDER Jul 25, 2019 01:50 PM VA-TOBACCO USER EVERY DAY [facility] Jul 09, 2018 03:00 PM VA-TOBACCO USE > 15 LESS [facility] THAN 30 YEARS Jul 09, 2018 03:00 PM VA-TOBACCO USE ADVICE [facility] Jul 09, 2018 03:00 PM VA-TOBACCO USE EMERGENCY MEDICAL SERVICE COORDINATOR NO [facility] Jul 09, 2018 03:00 PM VA-TOBACCO USE MED NO [facility] Jul 09, 2018 03:00 PM VA-TOBACCO USE [place] 30 MIN [facility] Jul 09, 2018 03:00 PM VA-TOBACCO USER EVERY DAY [facility] Jan 10, 2018 12:55 PM TOBACCO MEDICATION [place] [facility] INTERVENTION Sep 19, 2017 09:33 AM CURRENT TOBACCO USER [facility] Sep 19, 2017 09:33 AM TOBACCO SCREEN COMPLETED [facility] No, not willing to quit now Aug 12, 2016 01:53 PM CURRENT TOBACCO USER [facility] Aug 12, 2016 01:53 PM TOBACCO MEDICATION [place] [facility] Dilma CADET Aug 12, 2016 01:53 PM TOBACCO SCREEN COMPLETED [facility] Yes, willing to quit now May 30, 2013 11:04 AM LIFETIME NON-USER OF [facility] TOBACCO Feb 22, 2012 09:19 AM CURRENT TOBACCO USER [facility] Feb 22, 2012 09:19 AM TOBACCO SCREEN COMPLETED [facility] No, not willing to quit now Mar 07, 2011 11:32 AM TOBACCO MEDICATION [facility] Feb 25, 2011 10:38 AM CURRENT TOBACCO USER Severity= MINIMAL ANA PAULA MORENO [facility] Feb 25, 2011 10:38 AM TOBACCO MEDICATION Severity= MINIMAL BRIT PEREZ [facility] REFERRAL DR HALEY Feb 25, 2011 10:38 AM TOBACCO SCREEN COMPLETED Severity= MINIMA Ana [facility] Yes, willing to quit now Sep 27, 2010 11:38 AM TOBACCO MEDICATION [facility] [facility] INTERVENTION Sep 27, 2010 11:38 AM TOBACCO MEDICATION ORDERED [facility] Jan 04, 2010 10:28 AM CURRENT TOBACCO USER [facility] Jan 04, 2010 10:28 AM TOBACCO MEDICATION [facility] Jan 04, 2010 10:28 AM TOBACCO MEDICATION ORDERED [facility] Jan 04, 2010 10:28 AM TOBACCO MEDICATION [facility] REFERRAL DR. CANELA Encounter Notes: All associated encounter notes This section contains the clinical notes associated to the Encounter. Date/Time Encounter Note(s) Provider Source Apr 22, 2021 03:36 PM CARE MANAGEMENT NOTE: VERÓNICA FISH [facility] LOCAL TITLE: CARE MANAGEMENT NOTE STANDARD TITLE: CARE MANAGEMENT NOTE DATE OF NOTE: APR 22, 2021@15:36 ENTRY DATE: APR 22, 2021@15:37:03 AUTHOR: VERÓNICA FISH EXP COSIGNER: URGENCY: STATUS: COMPLETED identified vet with two identifiers, last name, last 4 of ss. full PPE is donned per protocol, this in cludes, N95 mask, face shield, plastic gown covering, gloves. protocol hand washing performed before and after contact with patient. patient is donning mask as required covid screening questions performed. per protocol, vet is in his vehicle for swab to be performed RUNNER ON swab performed per protocol in nare specimen is labeled per protocol, bagged per pro tocol . dirty PPE is placed in clear bag while doffing P PE outside specimen is taken to lab, wh ere it is bagged again and informed dental laboratory manager if vet is symptomatic or exposure. COVID-19 & FLU DIAGNOSTIC PANEL (SANAZ) N ASOPHARYNGEAL SWAB NASOPHARYNX SP ONCE LB #[id number] Activity: 04/22/2021 15:18 New Order entered by ROMMEL FISH (REGISTERED NURS) Order Text: COVID-19 & FLU DIAGNOSTIC PANEL (LI AT) NASOPHARYNGEAL SWAB NASOPHARYNX SP ONCE Nature of Order: WRITTEN Ordered by: CHARISSE GARCIA (NURSE PRACTITIO) Released by: VERÓNICA FISH (REGISTERED NURS) on 04/22/2021 15:18 Signature: ON CHART WITH WRITTEN ORDERS Current Data: Treating Specialty: Ordering Location: ADMINISTRATIVE-X Start Date/Time: 04/22/2021 Stop Date/Time: Current Status: PENDING Orders that have been placed but not yet accept ed by the service filling the order. e.g., Pharmacy orders awaiti ng verification, Lab orders awaiting collection. Order #[id number] Order: Lab Test: COVID-19 & FLU DIAGNOSTIC PANEL (SANAZ) Collected By: Send patient to lab Collection Sample: NASOPHARYNGEAL SWAB Specimen: NASOPHARYNX Collection Date/Time: TODAY Urgency: ROUTINE How often: ONCE /es/ VERÓNICA FISH RN Signed: 04/22/2021 15:38
--- OUTSIDE RECORDS SUMMARY | 2021-09-20 19:12 | External Medical Summary | Encounter Summary ---
:1980 Author Organization Department [facility] Address [address] [place] [address] Care Team Providers Name Role Phone CHARISSE GARCIA Primary Care Provider Unavailable Selected Encounter This section includes the information on record at [place] for the Encounter. Date/Time Encounter Type Encounter Description Reason Provider Source Mar 23, 2021 01:23 Outpatient Encounter TELEPHONE BY STAFF PM IHE Encounter Template Text not used by [place] Plan of Treatment: Future Appointments (+ 6 months) and Future Tests (+/- 45 days) The Plan of Treatment section includes future care activities for the patient from all [place] treatmentfacilities. This section includes future appointments and future orders which are active, pending orscheduled.Future Appointments This section includes appointments that were scheduled to occur 6 months from the date of the Encounter, up to a maximum of 20 appointments. The data comes from all [place] treatment facilities. Appointment Date/Time Appointment Type Appointment Facili ty Name Mar 24, 2021 09:30 AM AMBULATORY - [facility]ATRY [facility] [place] Apr 22, 2021 03:15 PM AMBULATORY - MEDICINE [facility] Apr 23, 2021 02:30 PM AMBULATORY - MEDICINE [facility] Apr 27, 2021 07:30 AM AMBULATORY - PS[facility]CHIATRY [facility] [place] Apr 29, 2021 02:00 PM AMBULATORY - MEDICINE MATIAS MOYA [facility] Apr 29, 2021 02:30 PM AMBULATORY - MEDICINE [facility] May 12, 2021 02:31 PM AMBULATORY - MEDICINE [facility] Jun 04, 2021 03:00 PM AMBULATORY - MEDICINE [facility] Jun 22, 2021 08:30 AM AMBULATORY - MEDICINE [facility] Jun 29, 2021 01:00 PM AMBULATORY - MEDICINE [facility] Jul 01, 2021 08:00 AM AMBULATORY - NONE MATIAS STEWARD [facility] Jul 07, 2021 07:00 AM AMBULATORY - NONE MATIAS STEWARD [facility] Jul 15, 2021 03:00 PM AMBULATORY - MEDICINE [facility] Jul 26, 2021 09:00 AM AMBULATORY - MEDICINE [facility] Aug 04, 2021 01:00 PM AMBULATORY - MEDICINE [facility] Aug 05, 2021 01:20 PM AMBULATORY - MEDICINE MATIAS MOYA [facility] Aug 06, 2021 08:15 AM AMBULATORY - MEDICINE [facility] Aug 10, 2021 03:30 PM AMBULATORY - MEDICINE [facility] Aug 11, 2021 11:10 AM AMBULATORY - NONE MATIAS STEWARD [facility] Aug 17, 2021 03:00 PM AMBULATORY - [facility] Active, Pending, and Scheduled Orders This section includes a listing of several types of active, pending, and scheduled orders, including clinic medications orders, diagnostic test orders, procedure orders and consult orders; where the start date of the order is 45 days before the date of the Encounter or 45 days after the date of the Encounter. The data comes from all [place] treatment [facility]. Test Date/Time Test Type Test Details Facility Name Feb 16, 2021 03:11 PM Consult Order [facility] Cons Talent Acquisition Assistant's Choice Mar 23, 2021 08:57 AM Consult Order [facility] Cons Talent Acquisition Assistant's Choice Lab Results: +/- 30 days of [...] - Unit Interpretation Reference Range Comment Apr 22, 2021 MATIAS STEWARDIGHT COVID-19 & FLU Specimen Type: NASOPHARYNX 03:30 PM [facility] DIAGNOSTIC PANEL Comment: Matt Jorge Sanaz ([id number]) (SANAZ) Ordering Provid er: GARCIACHARISSE Favian Report Released Date/Time: Apr 22, 2021 03:18 PM Reporting Lab: MATIAS Perera [address] [place] [address] Performing Lab: MATIAS Perera [address] [place] [place] [address] ANCILLARY INFLUENZA A RNA Not Detected N ot Detected ANCILLARY INFLUENZA B RNA Not Detected N ot Detected COVID-19 (SANAZ) Not Detected Not Detect ed Social History: Smoking Status (Most current) and Tobacco Use (All prior to encounter date) This section includes the most current, and the historical, smoking and tobacco-related health factors from the [place] facility where the Encounter took place.Current Smoking Status This section includes the most current smoking, or tobacco-related health factor, from the [place] facility where the Encounter took place. Date/Time Current Smoking Status Comment Facility Jan 07, 2009 09:40 AM CURRENT TOBACCO USER EDGAR Perera [facility] Encounter Notes: All associated encounter notes This section contains the clinical notes associated to the Encounter. Date/Time Encounter Note(s) Provider Source Mar 23, 2021 01:23 PM LETTERS: LUZ PATEL LOCAL TITLE: LETTER [facility] STANDARD TITLE: LETTERS DATE OF NOTE: MAR 23, 2021@13:23 ENTRY DATE: MAR 23, 2021@13:23:42 AUTHOR: LUZ PATEL EXP COSIGNER: URGENCY: STATUS: COMPLETED LETTER Has ADDENDA Matias Perera [address] [place] [address] MAR 23, 2021 BARBARA PERERA [address] [place] [address] Dear BARBARA PERERA, Your primary care provider at the [facility] or [facility] has referred you to the Home Telehealth program, Tanesha Chang for help in better managing your chronic disease(s). WHAT IS HOME TELEHEALTH? Home Telehealth is a specialty service of the [facility].This program provides home monitoring for patients with the following chronic diseases: high blood press ure, congestive heart failure, diabetes, and chronic obstructive pulmonary disease (COPD). We can also help you lose weight or quit smoking. The service uses a simple in-home messaging isaías ce. The messaging device only requires that you have a telephone i n your home and be interested in improving your quality of life. The service is completely free of charge. WHAT CAN HOME TELHEALTH DO FOR YOU? Monitor your assigned vital signs everyday (wee kends and holidays excluded) and contact you or your [facility] care provider if there are any problems. Provide you with education regarding your disea se(s). Help you to understand your medications and the ir role in better managing your disease(s). Answer any questions you might have about your health. Help coordinate your care to make sure you are getting the support that you need to be as healthy as y ou can be. WHAT DO YOU NEED TO DO? Be willing to take your assigned vital signs ev and transmit the results to us. Be willing to take our calls when we need to co ntact you. Be an active participant in improving your heal th. We look forward to helping you improve your heal th. If you do not wish to participate please give us a call at the number listed below. If you do not contact [facility] by Mar we will assume you do not wish to work with us i n managing your chronic health problems. Luz Patel RN Home Telehealth Corporate Law Specialist Phone#: [phone] /elina/ LUZ CUNHA RN Signed: 03/23/2021 13:24 Receipt Acknowledged By: 03/23/2021 15:40 /tammie LOVE [employer] Management Recycling Technician 03/23/2021 ADDENDUM STATUS: COMPLETED MAILED /tammie LOVE [employer] Management Recycling Technician Signed: 03/23/2021 15:40
--- OUTSIDE RECORDS SUMMARY | 2021-09-20 19:12 | External Medical Summary | Encounter Summary ---
:1980 Author Organization Department [facility] Address [address] [place] [address] Care Team Providers Name Role Phone MARCIA CHARISSE Primary Care Provider Unavailable Selected Encounter This section includes the information on record at [place] for the Encounter. Date/Time Encounter Type Encounter Reason Provider Source Description Apr 05, 2021 01:43 Outpatient PRIMARY VERÓNICA FISH PM Encounter CARE/MEDICINE IHE Encounter Template Text not used by [place] Plan of Treatment: Future Appointments (+ 6 months) and Future Tests (+/- 45 days) The Plan of Treatment section includes future care activities for the patient from all [place] treatmentfacilities. This section includes future appointments and future orders which are active, pending orscheduled.Future Appointments This section includes appointments that were scheduled to occur 6 months from the date of the Encounter, up to a maximum of 20 appointments. The data comes from all [place] treatment facilities. Appointment Date/Time Appointment Type Appointment Facili ty Name Apr 22, 2021 03:15 PM AMBULATORY - MEDICINE [facility] Apr 23, 2021 02:30 PM AMBULATORY - MEDICINE [facility] Apr 27, 2021 07:30 AM AMBULATORY - PS[facility]CHIATRY [facility] Apr 29, 2021 02:00 PM AMBULATORY - MEDICINE MATIAS MOYA [facility] Apr 29, 2021 02:30 PM AMBULATORY - MEDICINE [facility] May 12, 2021 02:31 PM AMBULATORY - MEDICINE [facility] Jun 04, 2021 03:00 PM AMBULATORY - MEDICINE [facility] Jun 22, 2021 08:30 AM AMBULATORY - MEDICINE [facility] Jun 29, 2021 01:00 PM AMBULATORY - MEDICINE [facility] Jul 01, 2021 08:00 AM AMBULATORY - NONE MATIAS GeeBianka JUSTINRENEPAT [facility] Jul 07, 2021 07:00 AM AMBULATORY - NONE MATIAS GeeBianka STEWARD [facility] Jul 15, 2021 03:00 PM AMBULATORY - MEDICINE [facility] Jul 26, 2021 09:00 AM AMBULATORY - MEDICINE [facility] Aug 04, 2021 01:00 PM AMBULATORY - MEDICINE [facility] Aug 05, 2021 01:20 PM AMBULATORY - MEDICINE MATIAS GROVES MOYA [facility] Aug 06, 2021 08:15 AM AMBULATORY - MEDICINE [facility] Aug 10, 2021 03:30 PM AMBULATORY - MEDICINE [facility] Aug 11, 2021 11:10 AM AMBULATORY - NONE MATIAS MBianka STEWARD [facility] Aug 17, 2021 03:00 PM AMBULATORY - MEDICINE [facility] Aug 24, 2021 02:00 PM AMBULATORY - NONE MATIAS MBianka NHANSHARRI [facility] Active, Pending, and Scheduled Orders This section includes a listing of several types of active, pending, and scheduled orders, including clinic medications orders, diagnostic test orders, procedure orders and consult orders; where the start date of the order is 45 days before the date of the Encounter or 45 days after the date of the Encounter. The data comes from all [place] treatment facilities. Test Date/Time Test Type Test Details Facility Name Mar 23, 2021 08:57 AM Consult Order [facility] Cons Curriculum Designer's Choice Lab Results: +/- 30 days of the encounter This section includes the Chemistry and Hematology Lab Results on record with [place] for the patient. Radiology Reports and Pathology Reports are provided separately, in subsequent sections.Lab Results This section contains the Chemistry/Hematology Results that were resulted 30 days before or 30 daysafter the date of the Encounter. Date/Time Source Result Type Result - Unit Interpretation Reference Range Comment Apr 29, 2021 [facility] WITH Spe chanceen Type: URINE 01:38 PM [facility] NALOXONE No comment enter ed. Ordering Provid er: CHARISSE BERMAN Report Released Date/Time: Mar 17, 2021 06:59 PM Reporting Lab: [place] [address] [place] [address] Performing Lab: MATIAS CLARK [facility] ; [place] [address] CODEINE [address]73 ng/mL H 0-24 MORPHINE 143 ng/mL H [...] 0-19 Apr 29, 2021 01:38 MATIAS Perera [facility] [place] EXPANDED URINE DRUG S pecimen Type: URINE PM [facility] SCREEN Comment: These drug screen results are presumptive only. For unexpected results, confirmatory testing is available if requested in a timely manner. Results are to be used for medical purposes only. Uri ne creatinine va lues <20 mg/dL should be considered a dilute sample. CREATININE, URINE reference ranges apply to first morning void. Ordering Provid er: CHARISSE BERMAN Report Released Date/Time: Mar 17, 2021 06:59 PM Reporting Lab: MATIAS [address] [place] [address] Performing Lab: MATIAS STEWARD[address] [place] [address] CREATININE, URINE 113.2 mg/dL 29-226 AMPHETAMINES/METHAMPHETAMINES SCREEN 87 NEG BARBITURATES SCREEN 11 NEG BENZODIAZEPINES SCREEN 52 NEG CANNABINOIDS SCREEN 23 NEG COCAINE SCREEN 4 NEG METHADONE SCREEN 0 NEG METHADONE METABOLITE (EDDP) SCREEN 71 NEG OPIATES SCREEN 1500 NEG OXYCODONE SCREEN 21 NEG PHENCYCLIDINE (PCP) SCREEN 11 NEG Apr 22, 2021 MATIAS CLARK COVID-19 & FLU Specimen Type: NASOPHARYNX 03:30 PM [facility] DIAGNOSTIC PANEL Comment: Matt Jorge Sanaz ([id number]) (SANAZ) Ordering Provid er: CHARISSE BERMAN Report Released Date/Time: Apr 22, 2021 03:18 PM Reporting Lab: MATIAS STEWARD[address] [place] [address] Performing Lab: MATIAS CLARK [address] [address] ANCILLARY INFLUENZA A RNA Not Detected N ot Detected ANCILLARY INFLUENZA B RNA Not Detected N ot Detected COVID-19 (SANAZ) Not Detected Not Detect ed Social History: Smoking Status (Most current) and Tobacco Use (All prior to encounter date) This section includes the most current, and the historical, smoking and tobacco-related health factors from the [place] facility where the Encounter took place.Current Smoking Status This section includes the most current smoking, or tobacco-related health factor, from the [place] facility where the Encounter took place. Date/Time Current Smoking Status Comment Facility Jan 07, 2009 09:40 AM CURRENT TOBACCO USER EDGAR Perera [facility] Encounter Notes: All associated encounter notes This section contains the clinical notes associated to the Encounter. Date/Time Encounter Note(s) Provider Source Apr 05, 2021 01:43 PM PRIMARY CARE SECURE MESSAGING: VERÓNICA FISH [facility] LOCAL TITLE: PRIMARY CARE SECURE MESSAGING STANDARD TITLE: PRIMARY CARE SECURE MESSAGING DATE OF NOTE: APR 05, 2021@13:43:35 ENTRY DATE: APR 05, 2021@10:43:35 AUTHOR: VERÓNICA FISH EXP COSIGNER: URGENCY: STATUS: COMPLETED PRIMARY CARE SECURE MESSAGING Has ADDENDA * ------Original Message Sent: 04/05/2021 10:03 AM From: BARBARA DYER To: MARCIA - Primary Care_[facility] Subject: Re-prescribe Dear Ms. Berman, I will be needing a refill on the 3 month suppl y of VARENICLINE 1MG TAB RX#[id number] Please and thank you, Barbara Nohemi Dyer /tammie FISH RN Signed: 04/05/2021 10:43 Receipt Acknowledged By: 04/06/2021 08:30 /tammie [facility]OS [facility] STAFF PHYSICIAN for CHARISSE BERMAN 04/06/2021 ADDENDUM STATUS: COMPLETED note reviewed, chart reviewed. requesting continuation of Verenicycline . However, medication currently on recall. Alerting pharmcy for recommendations. Thank you. /tammie AMOS MD, [facility] STAFF PHYSICIAN Signed: 04/06/2021 08:36 Receipt Acknowledged By: 04/06/2021 09:47 /tammie FISH RN 04/06/2021 09:53 /tammie [facility] CLINICAL OPTICAL LABORATORY TECHNICIAN 04/06/2021 ADDENDUM STATUS: COMPLETED varenicline works best [...] explore other options with her to include [facility] group, 1:1 c/ addiction therapy/SW; bupropion +/- NRT (patches, gum, lozenges) are available as alternatives. note to team on above. /tammie MARLOW, PHARM D, [facility] CLINICAL OPTICAL LABORATORY TECHNICIAN Signed: 04/06/2021 08:57 Receipt Acknowledged By: 04/06/2021 09:08 /tammie AMOS MD, [facility] STAFF PHYSICIAN 04/06/2021 10:23 /tammie FISH RN 04/06/2021 ADDENDUM STATUS: COMPLETED note reviewed, chart reviewed. Appreciate Pharmacy input. RN - please advise o f Pharmacy recommendations and advise PCP of request. Thank you. /tammie AMOS MD, FACP STAFF PHYSICIAN Signed: 04/06/2021 09:12 Receipt Acknowledged By: 04/06/2021 10:23 /elina/ VERÓNICA FISH RN 04/06/2021 ADDENDUM STATUS: COMPLETED vet notified of above via [employer] message. this note is printed and given to pcp marcia for review and action upon her return next week /elina/ VERÓNICA FISH RN Signed: 04/06/2021 10:27
--- OUTSIDE RECORDS SUMMARY | 2021-09-20 19:12 | External Medical Summary | Encounter Summary ---
:1980 Author Organization Department [facility] Address [address] [place] [address] Care Team Providers Name Role Phone CHARISSE GARCIA Primary Care Provider Unavailable Selected Encounter This section includes the information on record at [place] for the Encounter. Date/Time Encounter Type Encounter Description Reason Provider Source Mar 24, 2021 06:04 Outpatient Encounter PRIMARY CARE/MEDICINE PM IHE Encounter Template Text not used by [place] Plan of Treatment: Future Appointments (+ 6 months) and Future Tests (+/- 45 days) The Plan of Treatment section includes future care activities for the patient from all [place] treatmentfacilities. This section includes future appointments and future orders which are active, pending orscheduled.Future Appointments This section includes appointments that were scheduled to occur 6 months from the date of the Encounter, up to a maximum of 20 appointments. The data comes from all [place] treatment facilities. Appointment Date/Time Appointment Type Appointment Facili ty Name Apr 22, 2021 03:15 PM AMBULATORY - MEDICINE [facility] Apr 23, 2021 02:30 PM AMBULATORY - MEDICINE [facility] Apr 27, 2021 07:30 AM AMBULATORY - PSYCHIATRY [facility] Apr 29, 2021 02:00 PM AMBULATORY - MEDICINE MATIAS MOYA [facility] Apr 29, 2021 02:30 PM AMBULATORY - MEDICINE [facility] May 12, 2021 02:31 PM AMBULATORY - MEDICINE [facility] Jun 04, 2021 03:00 PM AMBULATORY - MEDICINE [facility] Jun 22, 2021 08:30 AM AMBULATORY - MEDICINE [facility] Jun 29, 2021 01:00 PM AMBULATORY - MEDICINE [facility] Jul 01, 2021 08:00 AM AMBULATORY - NONE MATIAS MarlenBianka STEWARD [facility] Jul 07, 2021 07:00 AM AMBULATORY - NONE MATIAS GeeBianka STEWARD [facility] Jul 15, 2021 03:00 PM AMBULATORY - MEDICINE [facility] Jul 26, 2021 09:00 AM AMBULATORY - MEDICINE [facility] Aug 04, 2021 01:00 PM AMBULATORY - MEDICINE [facility] Aug 05, 2021 01:20 PM AMBULATORY - MEDICINE MATIAS GeeBianka MOYA [facility] Aug 06, 2021 08:15 AM AMBULATORY - MEDICINE [facility] Aug 10, 2021 03:30 PM AMBULATORY - MEDICINE [facility] Aug 11, 2021 11:10 AM AMBULATORY - NONE MATIAS STEWARD [facility] Aug 17, 2021 03:00 PM AMBULATORY - MEDICINE [facility] Aug 24, 2021 02:00 PM AMBULATORY - NONE MATIAS MarlenBianka STEWARD [facility] Active, Pending, and Scheduled Orders This section includes a listing of several types of active, pending, and scheduled orders, including clinic medications orders, diagnostic test orders, procedure orders and consult orders; where the start date of the order is 45 days before the date of the Encounter or 45 days after the date of the Encounter. The data comes from all [place] treatment facilities. Test Date/Time Test Type Test Details Facility Name Feb 16, 2021 03:11 PM Consult Order [facility] Cons Spray Worker's Choice Mar 23, 2021 08:57 AM Consult Order [facility] Cons Spray Worker's Choice Lab Results: +/- 30 days of the encounter This section includes the Chemistry and Hematology Lab Results on record with [place] for the patient. Radiology Reports and Pathology Reports are provided separately, in subsequent sections.Lab Results This section contains the Chemistry/Hematology Results that were resulted 30 days before or 30 daysafter the date of the Encounter. Date/Time Source Result Type Result - Unit Interpretation Reference Range Comment Apr 22, 2021 MATIAS STEWARDIGHT COVID-19 & FLU Specimen Type: NASOPHARYNX 03:30 PM [facility] DIAGNOSTIC PANEL Comment: Matt Jorge Sanaz ([id number]) (SANAZ) Ordering Provid er: CHARISSE GARCIA Report Released Date/Time: Apr 22, 2021 03:18 PM Reporting Lab: MATIAS Perera [address] [place] [address] Performing Lab: MATIAS Perera [address] [place] [address] ANCILLARY INFLUENZA A RNA Not Detected N ot Detected ANCILLARY INFLUENZA B RNA Not Detected N ot Detected COVID-19 (SANAZ) Not Detected Not Detect ed Social History: Smoking Status (Most current) and Tobacco Use (All prior to encounter date) This section includes the most current, and the historical, smoking and tobacco-related health factors from the [place] facility where the Encounter took place.Current Smoking Status This section includes the most current smoking, or tobacco-related health factor, from the [place] facility where the Encounter took place. Date/Time Current Smoking Status Comment Facility Jan 07, 2009 09:40 AM CURRENT TOBACCO USER EDGAR Perera [facility] Encounter Notes: All associated encounter notes This section contains the clinical notes associated to the Encounter. Date/Time Encounter Note(s) Provider Source Mar 23, 2021 02:00 PM TELEPHONE ENCOUNTER NOTE: CHARISSE GARCIA [facility] LOCAL TITLE: TELEPHONE NOTE STANDARD TITLE: TELEPHONE ENCOUNTER NOTE DATE OF NOTE: MAR 23, 2021@14:00 ENTRY DATE: MAR 24, 2021@18:05:18 AUTHOR: CHARISSE GARCIA EXP COSIGNER: URGENCY: STATUS: COMPLETED Clinical Reminders Done Today Cervical Cancer Screening: See orders tab for any orders that may have been placed Dr Sandy López See orders tab for any orders that may have been placed The patient has had a documented normal Pap sme ar completed previously. Location: [place] Date: June 02, 2016 Comment: neg The patient has had screening for cervical HPV completed previously and the results are negative. No intermediate or high r isk HPV detected. 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
--- OUTSIDE RECORDS SUMMARY | 2021-09-20 19:12 | External Medical Summary | Encounter Summary ---
:1980 Author Organization Department [facility] Address [address] [place] [address] Care Team Providers Name Role Phone CHARISSE BERMAN Primary Care Provider Unavailable Selected Encounter This section includes the information on record at DC for the Encounter. Date/Time Encounter Type Encounter Reason Provider Source Description Mar 16, 2021 PRO PHONE CLINICAL PHARMACY ICD-10-CM E11.65 Michelle MARLOW 11:00 AM CALL 21-30 MIN Type 2 diabetes A mellitus with hyperglycemia with Provider Comments: DM - Diabetes mellitus ([facility] [id number]) IHE Encounter Template Text not used by DC Assessments - Encounter Diagnoses This section includes the primary and secondary diagnoses documented for the Encounter. Date/Time Primary/Secondary Diagnosis Name Provider Source Diagnosis Mar 16, 2021 PRIMARY Type 2 diabetes JAIDEN MARLOW 11:37 AM mellitus with CLINIC hyperglycemia Plan of Treatment: Future Appointments (+ 6 [...] 24, 2021 09:30 AM AMBULATORY - PSYCHIATRY [facility] Apr 22, 2021 03:15 PM AMBULATORY - MEDICINE [facility] Apr 23, 2021 02:30 PM AMBULATORY - MEDICINE [facility] Apr 27, 2021 07:30 AM AMBULATORY - PSYCHIATRY [facility] Apr 29, 2021 02:00 PM AMBULATORY - MEDICINE [facility] Apr 29, 2021 02:30 PM AMBULATORY - MEDICINE [facility] May 12, 2021 02:31 PM AMBULATORY - MEDICINE [facility] Jun 04, 2021 03:00 PM AMBULATORY - MEDICINE [facility] Jun 22, 2021 08:30 AM AMBULATORY - MEDICINE [facility] Jun 29, 2021 01:00 PM AMBULATORY - MEDICINE [facility] Jul 01, 2021 08:00 AM AMBULATORY - NONE [facility] Jul 07, 2021 07:00 AM AMBULATORY - NONE [facility] Jul 15, 2021 03:00 PM AMBULATORY - MEDICINE [facility] Jul 26, 2021 09:00 AM AMBULATORY - MEDICINE [facility] Aug 04, 2021 01:00 PM AMBULATORY - MEDICINE [facility] Aug 05, 2021 01:20 PM AMBULATORY - MEDICINE [facility] Aug 06, 2021 08:15 AM AMBULATORY - MEDICINE [facility] Aug 10, 2021 03:30 PM AMBULATORY - MEDICINE [facility] Aug 11, 2021 11:10 AM AMBULATORY - NONE [facility] Aug 17, 2021 03:00 PM AMBULATORY - MEDICINE [facility] Active, Pending, and Scheduled Orders [...] Feb 16, 2021 03:11 PM Consult Order COMM[facility]ITY [facility]ARE-OPHTH DIS M GMT [facility] Cons File Drawer Finisher's Choice Mar 23, 2021 08:57 AM Consult Order COMMUNITY [facility] Cons File Drawer Finisher's Choice Surgical Procedures: All associated to the encounter This section includes all Surgical Procedures and Surgical Procedure Notes associated to the Encounter.Surgical Procedures This section includes all Surgical Procedures associated to the Encounter.Surgical Procedure Date/Time Procedure Procedure Type Procedure Provider Source Qualifiers Mar 16, 2021 HC PRO PHONE HC PRO PHONE [facility]EN [facility]LOW [facility] 11:00 AM CALL 21-30 MIN CALL 21-30 MIN A CLINIC Surgical Notes There are no notes associat [...] 23, 2021 02:00 PM VA-TOBACCO FORMER USER [facility] Tobacco Use History This section includes a history of the smoking, or tobacco- related health factors, that were collected on or before the date of the Encounter. The data comes from the [place] facility where the Encounter took place. 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 COACH NO [facility] Jul 25, 2019 01:50 PM VA-TOBACCO USE MED NOTIFY [facility] PROVIDER Jul 25, 2019 01:50 PM VA-TOBACCO USER EVERY DAY [facility] Jul 09, 2018 03:00 PM VA-TOBACCO USE > 15 LESS L [facility] THAN 30 YEARS Jul 09, 2018 03:00 PM VA-TOBACCO USE ADVICE [facility] Jul 09, 2018 03:00 PM VA-TOBACCO USE DEFENSIVE 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 COACH NO [facility] Jul 09, 2018 03:00 PM VA-TOBACCO USE MED NO [facility] Jul 09, 2018 03:00 PM VA-TOBACCO USE WI 30 MIN [facility] Jul 09, 2018 03:00 PM VA-TOBACCO USER EVERY DAY [facility] Jan 10, 2018 12:55 PM TOBACCO MEDICATION [facility] INTERVENTION Sep 19, 2017 09:33 AM CURRENT TOBACCO USER [facility] Sep 19, 2017 09:33 AM TOBACCO SCREEN COMPLETED [facility] No, not willing to quit now Aug 12, 2016 01:53 PM CURRENT TOBACCO USER [facility] Aug 12, 2016 01:53 PM TOBACCO MEDICATION [facility] REFERRAL Dilma Berman [facility] Aug 12, 2016 01:53 PM TOBACCO SCREEN COMPLETED [facility] Yes, willing to quit now May 30, 2013 11:04 AM LIFETIME NON-USER OF [facility] TOBACCO Feb 22, 2012 09:19 AM CURRENT TOBACCO USER [facility] Feb 22, 2012 09:19 AM TOBACCO SCREEN COMPLETED [facility] No, not willing to quit now Mar 07, 2011 11:32 AM TOBACCO MEDICATION [facility] INTER[facility] Feb 25, 2011 10:38 AM CURRENT TOBACCO USER Severity= [facility] Feb 25, 2011 10:38 AM TOBACCO MEDICATION Severity= MINIMAL BRIT PEREZ [facility] REFERRAL DR HALEY Feb 25, 2011 10:38 AM TOBACCO SCREEN COMPLETED Severity= MINIMA [facility] Yes, willing to quit now Sep 27, 2010 11:38 AM TOBACCO MEDICATION [facility] INTERVENT[facility] Sep 27, 2010 11:38 AM TOBACCO MEDICATION ORDERED [facility] Jan 04, 2010 10:28 AM CURRENT TOBACCO USER [facility] Jan 04, 2010 10:28 AM TOBACCO MEDICATION [facility] INTER[facility] Jan 04, 2010 10:28 AM TOBACCO MEDICATION ORDERED [facility] Jan 04, 2010 10:28 AM TOBACCO MEDICATION [facility] REF[facility]. CANELA Encounter Notes: All associated encounter notes This section contains the clinical notes associated to the Encounter. Date/Time Encounter Note(s) Provider Source Mar 16, 2021 11:04 AM INTERNAL MEDICINE CLINICAL P HARMACIST MEDICATION MGT CONSULT: JAIDEN MARLOW [facility] LOCAL TITLE: CLINICAL PHARMACIST NOTE STANDARD TITLE: INTERNAL MEDICINE CLINICAL PHARM ACIST MEDICATION DATE OF NOTE: MAR 16, 2021@11:04 ENTRY DATE: MAR 16, 2021@11:04:51 AUTHOR: JAIDEN MARLOW EXP COSIGNER: URGENCY: STATUS: COMPLETED Patient Phone Number: [phone] verified full name / Appointment was conducted via Clinical Video Tel econferencing / [employer] (CVT/VVC) Telehealth Disclosure: R outine visit conducted by clinical video telehealth. Exam conducted by donald paz via camera. Patient verbal consent obtained prior to the video visit . [ x ] INITIAL VVC APPT: reviewed the following: * the nature of Telehealth, its benefits and ri sks * confidentiality and its limits * the emergency plan, confirmed Vet's location for this appointment * how to sign up for Secure Messaging via [facility] ltheVet * the importance of having a confidential locat ion for the service * the appointment should be treated like a doct or's appointment (no smoking or driving during session, showing up f ully dressed, etc.) [ ] FOLLOW-UP VVC APPT was notified of right to decline Telehea [facility] services and eligibility for other options. consente d to be seen via CVT. EMERGENCY PLAN 1. In the event of an emergency, the [place] or family will call emergency services, if capable. Teleprovider wi ll remain in the virtual medical room until emergency response a rrives and handoff to emergency services is complete. 2. If [place] is unable to make emergency call, Teleprovider is to call the national E911 service at and ask to be connected to emergency services for the 's locatio n. Verified Providers location and contact informat ion for this appointment: [place] [facility] - teleworking [address] [facility] [address] [place] [address] confirmed pt's name and address: [address] [place] [address] Patient Phone Numbers: Cell: No data available Home: [phone] Work: No data available Emergency Contact: Name: KAUR PERERA Relationship: FRIEND converted to tele s / b: f/up on DM. CC: i was put on prednisone and my sugars went s ky high Non-[facility] providers: [facility] REMOTE MEDS: No Active Remote Medications for this patient DM regimen: 70/30 60 units AM / PM (~12 hours) aspart 15 units NOON Past DM meds: Allergies: GLIPIZIDE, METFORMIN SH: not working - reports she's applying for job s, but hasn't been hired PHYSICAL ACTIVITY: -- took dog for a walk x1 the past week COMPLIANCE / ADHERANCE: -- missed 2 shots (pm 70/30 shots) DIET: (how many meals / day?) -- met c/ RD last week : 3 things she learned from RD visit - appreciated RD helping make 'realistic goals' - goals: set alarm for 6AM, take a dog for a wa lk as far as she can go; lunch is @ 2PM, and taking BG @ 4PM. : ignored her 4PM BG x6 the past week HYPOGLYCEMIC AWARENESS: 2 sx hypos (70s), BG = 4 8 (mid-day delayed eating) -- S/sx assoc c/ hypos: dizziness, lightheaded, shakes, sweating, etc. -- Education on RULE OF 15; 15 gm CHO, wait 15 min, repeat prn. -- 15 gm --- 1 Tbl honey, 5 lifesavers, 4 oz OJ , 3-4 glucose tabs,etc. Labs A1C: Collection DT Spec A1C a 02/09/2021 11:09 BLOOD 14.4 H GLUCOSE: 502 (02/09/21 11:09) POTASSIUM: 4.2 (02/09/21 11:09) SODIUM: 133 (02/09/21 11:09) CREATININE: 0.9 mg/dL (02/09/2021 11:09) BUN: 21 (02/09/21 11:09) TSH: 2.02 (02/09/21 11:09) LDL: SCLU - Lab Cum Selected Collection DT Spec LDLdire a 02/09/2021 11:09 SERUM 86 LIPID PANEL: Collection DT Spec CHOL TRIG HDL LDLcalc zCHL/HD AST a 02/09/2021 11:09 SERUM 246 H 909 H 28 L 15 TSH: 2.02 (02/09/21 11:09) Vit D (25-OH): Collection DT Spec ODU06ML a 02/09/2021 11:09 SERUM 24.2 L B12: 996 (02/09/21 11:09) AMPUTATION RISK ASSESSMENT: AMPUTATION RISK ASSESSMENT AMPUTATION RISK LEVEL = 2 07/25/2019 AMPUTATION RISK LEVEL = 2 (PULSES) 07/25/2019 MICROVASCULAR CHANGES ( ) Nephropathy Protein / Creatinine Ratio: No data available for CREATININE, URINE; MICROA LBUMIN (QUANT); MICROALBUMIN/CREATININE RATIO Collection DT Spec zPRO/CR 11/17/2014 08:41 URINE 141.0 07/16/2014 08:35 URINE 146.0 10/18/2013 09:24 URINE 66.0 ( ) Neuropathy --STATUS-- --DUE DATE-- --LAST DONE-- Diabetic Sensory Foot Exam DUE NOW 07/25/2020 ( ) Retinopathy last eye exam? last retinal imaging? [id number] Exam HOME BG: meter averages 6.29 02/16 7-day: 142(4) - 14-day: 134(11) - 30-day: 118(32) - 90-day: 141(39) - ASSESSMENT / PLAN: = DM2: a1c goal <9 initially : she's on statin : reports that she's 40 you and doesn't like to be told what she can and cannot eat. reports that she knows she need s to listen to professionals and "swallow my pride" and be mor e healthy : reports she hasn't been doing her AM walk wit h her dog, and reports she turns off her alarm, and reports the 1 time the past week she went, she was gone for ~an hour, and went a block and a half. : using motivational interviewing, she made a g oal to walk her dog Mon- Mon : hasn't had fast food the past week - acknowle dged this counts as a success : checking FASTING AM BGs consistently : no changes today. : will attempt to follow to attritiion. = Consults entered: teleMOVE! (failed to enter l ast visit) = RTC --- 2 weeks = Meds were reviewed in detail for indication, d osing, duration, drug-drug interactions, drug-food, drug-disease, drug-bijal rgy, potential JAMI, and therapeutic duplications. co mprehensive med rec with pt was deferred this date. Pt understands plan of care and is in agreement with today's plan. Pt was involved with the decision making this visit. Questions were answered, and pt had no further c oncern. = Med rec completed. [ ] AVS to be mailed total time: 30 min ===== Clinical Reminders Done Today PBM PharmD Pharmacotherapy Rem V11: PHARMACIST INTERVENTIONS: TYPE 2 DIABETES MELLITUS Nonpharmacologic intervention made No change made Address compliance/adherence Medication monitoring or diagnostic evaluation /es/ JAIDEN MARLOW, PHARM D, [facility] CLINICAL [employer]ER Signed: 03/16/2021 11:37
--- OUTSIDE RECORDS SUMMARY | 2021-09-20 19:13 | External Medical Summary ---
NUTRITION/DIETETICS-INDIVIDUAL [facility] Encounter Summary Created on:March 10, 2021 Patient:BARBARA PERERA Sex:Female :1980 [address] Department [facility] Address [address] [place] [id number] Care Team Providers Name Role Phone CHARISSE GARCIA Primary Care Provider Unavailable Selected Encounter This section includes the information on record at DC for the Encounter. Date/Time Encounter Type Encounter Reason Provider Source Description Mar 10, 2021 NUTRITIONAL NUTRITION/DIETET ICD-10-CM Z71.3 ALTON RODRIGUEZ 10:00 AM COUNSELING, DIET ICS-INDIVIDUAL Dietary UA L counseling and surveillance with Provider Comments: Dietary counseling and surveillance IHE Encounter Template Text not used by [facility] Assessments - Encounter Diagnoses This section includes the primary and secondary diagnoses documented for the Encounter. Date/Time Primary/Secondary Diagnosis Name Provider Source Diagnosis Mar 10, 2021 PRIMARY Dietary counseling BISI RODRIGUEZ [place] 05:20 PM and surveillance [facility] Mar 10, 2021 SECONDARY Type 2 diabetes BISI RODRIGUEZ V 05:20 PM mellitus with [facility] hyperglycemia Plan of Treatment: Future Appointments [...] Appointment Type Appointment Facili ty Name Mar 16, 2021 11:00 AM AMBULATORY - MEDICINE [facility] Mar 24, 2021 09:30 AM AMBULATORY - PSYCHIATRY [facility] Apr 22, 2021 03:15 PM AMBULATORY - MEDICINE [facility] Apr 23, 2021 02:30 PM AMBULATORY - MEDICINE [facility] Apr 27, 2021 07:30 AM AMBULATORY - PSYCHIATRY [facility] Apr 29, 2021 02:00 PM AMBULATORY - MEDICINE [facility] Apr 29, 2021 02:30 PM AMBULATORY - MEDICINE [facility] May 12, 2021 02:31 PM AMBULATORY - MEDICINE [facility] Jun 04, 2021 03:00 PM AMBULATORY - MEDICINE [facility] Jun 22, 2021 08:30 AM AMBULATORY - MEDICINE [facility] Jun 29, 2021 01:00 PM AMBULATORY - MEDICINE [facility] Jul 01, 2021 08:00 AM AMBULATORY - NONE [facility]EW[facility] Jul 07, 2021 07:00 AM AMBULATORY - NONE [facility] STEW[facility] Jul 15, 2021 03:00 PM AMBULATORY - MEDICINE [facility] Jul 26, 2021 09:00 AM AMBULATORY - MEDICINE [facility] Aug 04, 2021 01:00 PM AMBULATORY - MEDICINE [facility] Aug 05, 2021 01:20 PM AMBULATORY - MEDICINE MATIAS MOYA [facility] Aug 06, 2021 08:15 AM AMBULATORY - MEDICINE [facility] Aug 10, 2021 03:30 PM AMBULATORY - MEDICINE [facility] Aug 11, 2021 11:10 AM AMBULATORY - NONE [facility] STEWARD [facility] Active, Pending, and Scheduled Orders This section [...] Consult Order COMMUNITY CARE-OPHTH DIS M GMT [facility] Cons Transaction Manager's Choice Mar 23, 2021 08:57 AM Consult Order COMMUNITY [facility] Cons Transaction Manager's Choice Surgical Procedures: All associated to the encounter This section includes all Surgical Procedures and Surgical Procedure Notes associated to the Encounter.Surgical Procedures This section includes all Surgical Procedures associated to the Encounter.Surgical Procedure Date/Time Procedure Procedure Type Procedure Provider Source Qualifiers Mar 10, 2021 [id number] NUT CNSG NUTRITIONAL PRICILA RODRIGUEZ [place] 10:00 AM IND,1ST15M COUNSELING, DIET [facility] Surgical Notes There are no notes associat ed with this procedure. Surgical Procedure Date/Time Procedure Procedure Type Procedure Provider Source Qualifiers Mar 10, 2021 Diabetic DIABETIC PRICILA RODRIGUEZ [place] 10:00 AM Mgmt,Dietitian MANAGEMENT [facility] PROGRAM, Surgical Notes There are no notes associat [...] Interpretation Reference Range Comment February 09, 2021 [facility] VITAMIN D (25-HYDROXY) Speci men Type: SERUM [...] CONFIRMED BY REPEAT TESTING. CALLED TO HELIO GARCIA@5033 02-10-21/NS READ BACK OF CRITICAL VALUES OCCURRED FOR CONFIRMATION. CRITICAL RESULT KNOWN/REPORTED [id number] 02/10/21 Ordering Provid er: CHARISSE GARCIA Report Released Date/Time: Nov 07, 2020 04:38 PM Reporting Lab: [facility] [place] [address] [place] [address] Performing Lab: [facility] [address] [place] [address] VITAMIN D (25-HYDROXY) 24.2 ng/mL L 30.0-1 00 February 09, 2021 11:09 AM [facility] MAGNESIUM Specim en Type: SERUM Comment: High [...] CONFIRMED BY REPEAT TESTING. CALLED TO HELIO GARCIA@6043 02-10-21/NS READ BACK OF CRITICAL VALUES OCCURRED FOR CONFIRMATION. CRITICAL RESULT KNOWN/REPORTED [id number] 02/10/21 Ordering Provid er: CHARISSE GARCIA Report Released Date/Time: Nov 07, 2020 04:38 PM Reporting Lab: [facility] [place] [address] [place] [address] Performing Lab: [facility] [place] [address] [place] [address] MAGNESIUM 1.9 mg/dL 1.6-2.6 February 09, 2021 11:09 AM [facility] VITAMIN B-12 Specim en Type: SERUM Comment: High d oses of Biotin supplements (>5 mg/day) may falsely increase Vitamin B-12, Vitamin D (25OH), Free T4, and Folate results. Test specimens should be collected at least 8 hrs after last ingestion of high dose biotin. Ordering Provid er: CHARISSE GARCIA Report Released Date/Time: Nov 07, 2020 04:38 PM Reporting Lab: [facility] [place] [address] [place] [address] Performing Lab: [facility] [place] [address] [place] [address] VITAMIN B-12 996 pg/mL 232-1245 February 09, 2021 [facility] COMPREHENSIVE METABOLIC Spec imen Type: SERUM 11:09 [...] CONFIRMED BY REPEAT TESTING. CALLED TO HELIO GARCIA@5103 02-10-21/NS READ BACK OF CRITICAL VALUES OCCURRED FOR CONFIRMATION. CRITICAL RESULT KNOWN/REPORTED [id number] 02/10/21 Ordering Provid er: CHARISSE GARCIA Report Released Date/Time: Nov 07, 2020 04:38 PM Reporting Lab: [facility] [address] [place] [address] Performing Lab: [facility]IAS STEWARD[address] [place] [address] GLUCOSE 502 mg/dL HH 71-109 BUN/UREA (BLOOD UREA NITROGEN) 21 mg/dL [...] L > 90 February 09, 2021 11:09 [facility] CBC & MORPHOLOGY (WITH Sp ecimen Type: BLOOD AM DIFF) No comment enter ed. Ordering Provid er: CHARISSE GARCIA Report Released Date/Time: Nov 07, 2020 04:38 PM Reporting Lab: [facility] Perera [address] [place] [address] Performing Lab: [facility] Pe[facility] [address] [place] [address] WBC (TOTAL WBC COUNT) 10.1 K/L 3.0-10. [...] ABSOLUTE 0.02 K/L 0-0.07 February 09, 2021 [facility] THYROID STIMULATING Specimen Type: SERUM 11:09 AM [...] CONFIRMED BY REPEAT TESTING. CALLED TO HELIO GARCIA@1043 02-10-21/NS READ BACK OF CRITICAL VALUES OCCURRED FOR CONFIRMATION. CRITICAL RESULT KNOWN/REPORTED 02/10/21 Ordering Provid er: CHARISSE GARCIA Report Released Date/Time: Nov 07, 2020 04:38 PM Reporting Lab: [facility] [place] [address] [place] [address] Performing Lab: [facility] [place] [address] [place] [address] THYROID STIMULATING HORMONE 2.02 IU/mL 0.300-4.25 February 09, 2021 11:09 AM [facility] LIPID PANEL Specim en Type: SERUM Comment: [...] CONFIRMED BY REPEAT TESTING. CALLED TO HELIO GARCIA@1243 02-10-21/NS READ BACK OF CRITICAL VALUES OCCURRED FOR CONFIRMATION. CRITICAL RESULT KNOWN/REPORTED 12402/10/21 Ordering Provid er: CHARISSE GARCIA Report Released Date/Time: Nov 07, 2020 04:38 PM Reporting Lab: [facility] [place] [address] [place] [address] Performing Lab: [facility] [place] [address] [place] [address] CHOLESTEROL 246 mg/dL H <199 TRIGLYCERIDE 909 mg/dL H <149 HDL CHOLESTEROL 28 mg/dL L >40 NON-HDL CHOLESTEROL 218 mg/dL <130 LDL, DIRECT 86 mg/dL 0-129 February 09, 2021 11:09 AM [facility] URINALYSIS (IRIS) Spec imen Type: URINE No comment enter ed. Ordering Provid er: CHARISSE GARCIA Report Released Date/Time: Nov 07, 2020 04:38 PM Reporting Lab: [facility] [place] [address] [place] [address] Performing Lab: [facility] [place] [address] [place] [address] URINE COLOR Light-Yellow SPECIFIC GRAVITY 1.032 H [...] < 2 February 09, 2021 11:09 AM [facility] HEMOGLOBIN A1C Specim en Type: BLOOD Comment: [...] 07, 2020 04:38 PM Reporting Lab: [facility] [place] [address] [place] [address] Performing Lab: [facility] Perera [place] [address] [place] [address] HEMOGLOBIN A1C 14.4 % H 0-5.6 Social [...] 23, 2021 02:00 PM VA-TOBACCO FORMER USER [facility] Tobacco Use History This section includes a history of the smoking, or tobacco- related health factors, that were collected on or before the date of the Encounter. The data comes from the [place] facility where the Encounter took place. Date/Time Smoking Status/Tobacco Use Comment Aliya [facility] Feb 23, 2021 02:00 PM VA-TOBACCO QUIT < 1 YEAR [facility] Jul 25, 2019 01:50 PM VA-TOBACCO DOESNT USE WI [facility] 30 MIN [facility] Jul 25, 2019 01:50 PM VA-TOBACCO USE > 15 LESS [facility] THAN 30 YEARS Jul 25, 2019 01:50 PM VA-TOBACCO USE ADVICE [facility] Jul 25, 2019 01:50 PM VA-TOBACCO USE LIFE ASSURANCE REPRESENTATIVE NO [facility] Jul 25, 2019 01:50 PM VA-TOBACCO USE MED NOTIFY [facility] PROVIDER Jul 25, 2019 01:50 PM VA-TOBACCO USER EVERY DAY [facility] Jul 09, 2018 03:00 PM VA-TOBACCO USE > 15 LESS [facility] THAN 30 YEARS Jul 09, 2018 03:00 PM VA-TOBACCO USE ADVICE [facility] Jul 09, 2018 03:00 PM VA-TOBACCO USE LIFE ASSURANCE REPRESENTATIVE NO [facility] Jul 09, 2018 03:00 PM VA-TOBACCO USE MED NO [facility] Jul 09, 2018 03:00 PM VA-TOBACCO USE WI 30 MIN [facility] Jul 09, 2018 03:00 PM VA-TOBACCO USER EVERY DAY [facility] Jan 10, 2018 12:55 PM TOBACCO MEDICATION MARIA ELENA Juarez [facility] INTERVENTION Sep 19, 2017 09:33 AM CURRENT TOBACCO USER [facility] Sep 19, 2017 09:33 AM TOBACCO SCREEN COMPLETED [facility] No, not willing to quit now Aug 12, 2016 01:53 PM CURRENT TOBACCO USER [facility] Aug 12, 2016 01:53 PM TOBACCO MEDICATION [place] [facility] REFERRAL Dilma CADET Aug 12, 2016 01:53 PM TOBACCO SCREEN COMPLETED [facility] Yes, willing to quit now May 30, 2013 11:04 AM LIFETIME NON-USER OF [facility] TOBACCO Feb 22, 2012 09:19 AM CURRENT TOBACCO USER [facility] Feb 22, 2012 09:19 AM TOBACCO SCREEN COMPLETED [facility] No, not willing to quit now Mar 07, 2011 11:32 AM TOBACCO MEDICATION [place] [facility] INTERVENTION Feb 25, 2011 10:38 AM CURRENT TOBACCO USER Severity= MINIMAL ANA PAULA MORENO [facility] Feb 25, 2011 10:38 AM TOBACCO MEDICATION Severity= MINIMAL BRIT PEREZ [facility] REFERRAL DR HALEY Feb 25, 2011 10:38 AM TOBACCO SCREEN COMPLETED Severity= MINIMA Ana [facility] Yes, willing to quit now Sep 27, 2010 11:38 AM TOBACCO MEDICATION [place] [facility] INTERVENTION Sep 27, 2010 11:38 AM TOBACCO MEDICATION ORDERED [facility] Jan 04, 2010 10:28 AM CURRENT TOBACCO USER HARRY BERNAL [facility] Jan 04, 2010 10:28 AM TOBACCO MEDICATION [place] [facility] INTERVENTION Jan 04, 2010 10:28 AM TOBACCO MEDICATION ORDERED [facility] Jan 04, 2010 10:28 AM TOBACCO MEDICATION [place] [facility] REFERRAL DR. CANELA Encounter Notes: All associated encounter notes This section contains the clinical notes associated to the Encounter. Date/Time Encounter Note(s) Provider Source Mar 10, 2021 03:08 PM NUTRITION DIETETICS CONSULT: PRICILA RODRIGUEZ [facility] LOCAL TITLE: NUTRITION CONSULTATION NOTE STANDARD TITLE: NUTRITION DIETETICS CONSULT DATE OF NOTE: MAR 10, 2021@15:08 ENTRY DATE: MAR 10, 2021@15:08:57 AUTHOR: SONIA RODRIGUEZ EXP COSIGNER: URGENCY: STATUS: COMPLETED NUTRITION ASSESSMENT The following identifiers were used to verify th is patient: Full name and CLIENT HISTORY: 40, FEMALE Dx: T2DM treated w/ ANTHROPOMETRICS AND LABS: Height: 66 in [167.6 cm] (02/23/2021 14:04) Weight: 224 lb [101.8 kg] (02/23/2021 14:04) BMI: 36 Collection DT Specimen Test Name Result Units Re f Range 02/09/2021 11:09 SERUM BUN 21 mg/dL 7 - 23 02/09/2021 11:09 SERUM GLUCOSE 502 H* mg/dL 71 - 109 02/09/2021 11:09 SERUM SODIUM 133 mmol/L 131 - 1 42 02/09/2021 11:09 SERUM POTASSIUM 4.2 mmol/L 3.6 - 5.4 02/09/2021 11:09 SERUM CHLORIDE 105 mmol/L 95 - 108 02/09/2021 11:09 SERUM CARBON DIOXIDE 22 mmol/L 21 - 32 02/09/2021 11:09 SERUM CREATININE, SERUM 0.9 mg/ dL .5 - 1 02/09/2021 11:09 SERUM GFR ESTIMATION >60 mL/min /BSA Ref: >=60 A1c Trend: Collection DT Spec A1C a 02/09/2021 11:09 BLOOD 14.4 H Collection DT Spec CHOL AST TRIG HDL LDLcalc zCH L/HD NON-HDL a 02/09/2021 11:09 SERUM 246 H 15 909 H 28 L 218 b 10/02/2019 13:21 SERUM 175 16 284 H 41 4.3 134 c 04/29/2019 09:15 SERUM 146 14 231 H 35 65 4.2 111 BP: Measurement DT BP 02/23/2021 13:54 96/61 10/01/2019 12:31 114/72 07/25/2019 13:44 112/69 05/03/2019 08:38 108/77 02/22/2019 09:22 105/71 SAFE FOOD/MEAL AVAILABILITY: Food Secure? y Who shops/prepares for food? herself Food & Nutrition Intake: [employer] protein shake crispix apple - turkey chili roast beef on GF bread NUTRITION DIAGNOSIS: Inconsistent CHO intake related to food and nut rition related knowledge deficit as evidenced by elevated A1c INTERVENTION: Haider and I discussed some of the issues she has been having surrounding food. She feels as though insulin makes her gain w eight and that she sometimes is shamed for gaining wt, so she will stop taking her insulin. Her previous a1c was 14.4%. She has been taking her insu jeffrey again for the last 3ish weeks (stated). Vet said that she has several allergi es now, Gluten Intolerance, Lactose intolerance, Soy allergy, Egg Allergy, and tree nuts/peanuts. Looking for recipes for smoothies that adhere to her diet restrictions. Look for recipes as well. Discussed basics of diabetic diet and need for b alanced, healthy meals. Reviewed following: Role of CHO, fiber, protein and fat in controlli ng BG. CHO sources and amounts/meal. Weight control and activity CHO choices as well MONITOR/EVALUATE: Anthropometric: A1c/BMI PLAN: Encouraged to attend Diabetes F/U Group at the [facility]. Referrals/RTC: 60 minutes were spent counseling this . /elina/ SONIA RODRIGUEZ M.S., R.D. CLINICAL DIETITIAN Signed: 03/10/2021 17:20
--- OUTSIDE RECORDS SUMMARY | 2021-09-20 19:13 | External Medical Summary | Encounter Summary ---
:1980 Author Organization Department [facility] Address [address] [place] [id number] Care Team Providers Name Role Phone CHARISSE GARCIA Primary Care Provider Unavailable Selected Encounter This section includes the information on record at ME for the Encounter. Date/Time Encounter Type Encounter Reason Provider Source Description Mar 10, 2021 [facility] ICD-10-CM Z65.9 ALTON GUAMAN 09:30 AM IND Problem related to unspecified psychosocial circumstances with Provider Comments: Problem Related to unspecified Psychosocial Circumstances IHE Encounter Template Text not used by ME Assessments - Encounter Diagnoses This section includes the primary and secondary diagnoses documented for the Encounter. Date/Time Primary/Secondary Diagnosis Name Provider Source Diagnosis Mar 10, 2021 PRIMARY Problem related to LION GUAMAN [facility] 10:53 AM unspecified CLINIC psychosocial circumstances Plan of Treatment: Future Appointments (+ 6 [...] 16, 2021 11:00 AM AMBULATORY - MEDICINE [facility] Mar 24, 2021 09:30 AM AMBULATORY - PSYCHIATRY [facility] Apr 22, 2021 03:15 PM AMBULATORY - MEDICINE [facility] Apr 23, 2021 02:30 PM AMBULATORY - MEDICINE [facility] Apr 27, 2021 07:30 AM AMBULATORY - PS[facility]CHIATRY [facility] Apr 29, 2021 02:00 PM AMBULATORY - MEDICINE [facility] MO[facility] Apr 29, 2021 02:30 PM AMBULATORY - MEDICINE [facility] May 12, 2021 02:31 PM AMBULATORY - MEDICINE [facility] Jun 04, 2021 03:00 PM AMBULATORY - MEDICINE [facility] Jun 22, 2021 08:30 AM AMBULATORY - MEDICINE [facility] Jun 29, 2021 01:00 PM AMBULATORY - MEDICINE [facility] Jul 01, 2021 08:00 AM AMBULATORY - NONE [facility] Jul 07, 2021 07:00 AM AMBULATORY - NONE [facility] Jul 15, 2021 03:00 PM AMBULATORY - MEDICINE [facility] Jul 26, 2021 09:00 AM AMBULATORY - MEDICINE [facility] Aug 04, 2021 01:00 PM AMBULATORY - MEDICINE [facility] Aug 05, 2021 01:20 PM AMBULATORY - MEDICINE [facility]IAS MOYA [facility] Aug 06, 2021 08:15 AM AMBULATORY - MEDICINE [facility] Aug 10, 2021 03:30 PM AMBULATORY - MEDICINE [facility] Aug 11, 2021 11:10 AM AMBULATORY - NONE [facility] Active, Pending, and Scheduled Orders This section [...] Consult Order [facility] DIS M GMT [facility] Cons Correspondence Analyst's Choice Mar 23, 2021 08:57 AM Consult Order [facility] Cons Correspondence Analyst's Choice Surgical Procedures: All associated to the encounter This section includes all Surgical Procedures and Surgical Procedure Notes associated to the Encounter.Surgical Procedures This section includes all Surgical Procedures associated to the Encounter.Surgical Procedure Date/Time Procedure Procedure Type Procedure Provider Source Qualifiers Mar 10, 2021 Case CASE MANAGEMENT LION GUAMAN [facility] 09:30 AM Management, CLINIC 15 min Surgical Notes There are no notes associat ed with this procedure. Lab Results: +/- 30 days of the encounter This section includes the Chemistry and Hematology Lab Results on record with ME for the patient. Radiology Reports and Pathology Reports are provided separately, in subsequent sections.Lab Results This section contains the Chemistry/Hematology Results that were resulted 30 days before or 30 daysafter the date of the Encounter. Date/Time Source Result Type Result - Unit Interpretation Reference Range Comment February 09, 2021 [facility] VITAMIN D (25-HYDROXY) Speci men Type: SERUM [...] CONFIRMED BY REPEAT TESTING. CALLED TO HELIO GARCIA@7573 02-10-21/NS READ BACK OF CRITICAL VALUES OCCURRED FOR CONFIRMATION. CRITICAL RESULT KNOWN/REPORTED 1237/[id number] 02/10/21 Ordering Provid er: CHARISSE GARCIA Report Released Date/Time: Nov 07, 2020 04:38 PM Reporting Lab: [facility] [place] [address] [place] [phone] Performing Lab: [facility] [place] [address] [place] [phone] VITAMIN D (25-HYDROXY) 24.2 ng/mL L 30.0-1 00 February 09, 2021 11:09 AM [facility] MAGNESIUM Specim en Type: SERUM Comment: High [...] CONFIRMED BY REPEAT TESTING. CALLED TO HELIO GARCIA@1713 02-10-21/NS READ BACK OF CRITICAL VALUES OCCURRED FOR CONFIRMATION. CRITICAL RESULT KNOWN/REPORTED 1237/[id number] 02/10/21 Ordering Provid er: CHARISSE GARCIA Report Released Date/Time: Nov 07, 2020 04:38 PM Reporting Lab: [facility] [place] [address] [place] [address] Performing Lab: [place] [place] [address] [place] [address] MAGNESIUM 1.9 mg/dL 1.6-2.6 February 09, 2021 11:09 AM [facility] VITAMIN B-12 Specim en Type: SERUM Comment: High d oses of Biotin supplements (>5 mg/day) may falsely increase Vitamin B-12, Vitamin D (25OH), Free T4, and Folate results. Test specimens should be collected at least 8 hrs after last ingestion of high dose biotin. Ordering Provid er: CHARISSE GARCAI Report Released Date/Time: Nov 07, 2020 04:38 PM Reporting Lab: [facility] [place] [address] [place] [address] Performing Lab: [place] [place] [address] [place] [address] VITAMIN B-12 996 pg/mL 232-1245 February 09, 2021 [facility] COMPREHENSIVE METABOLIC Spec imen Type: SERUM 11:09 [...] CONFIRMED BY REPEAT TESTING. CALLED TO HELIO GARCIA@1303 02-10-21/NS READ BACK OF CRITICAL VALUES OCCURRED FOR CONFIRMATION. CRITICAL RESULT KNOWN/REPORTED 1237/1243 02/10/21 Ordering Provid er: CHARISSE GARCIA Report Released Date/Time: Nov 07, 2020 04:38 PM Reporting Lab: [facility] [place] [address] [place] [address] Performing Lab: [facility] [place] [address] [place] [address] GLUCOSE 502 mg/dL HH 71-109 BUN/UREA (BLOOD [...] L > 90 February 09, 2021 11:09 [facility] CBC & MORPHOLOGY (WITH Sp ecimen Type: BLOOD AM DIFF) No comment enter ed. Ordering Provid er: CHARISSE GARCIA Report Released Date/Time: Nov 07, 2020 04:38 PM Reporting Lab: [facility] [place] [address] [place] [address] Performing Lab: [facility] [address] [place] [address] WBC (TOTAL WBC COUNT) 10.1 K/L 3.0-10. [...] ABSOLUTE 0.02 K/L 0-0.07 February 09, 2021 [facility] THYROID STIMULATING Specimen Type: SERUM 11:09 AM [...] CONFIRMED BY REPEAT TESTING. CALLED TO HELIO GARCIA@0938 02-10-21/NS READ BACK OF CRITICAL VALUES OCCURRED FOR CONFIRMATION. CRITICAL RESULT KNOWN/REPORTED [id number] 02/10/21 Ordering Provid er: CHARISSE GARCIA Report Released Date/Time: Nov 07, 2020 04:38 PM Reporting Lab: [facility] [address] [place] [address] Performing Lab: [facility] Perera [address] [place] [address] THYROID STIMULATING HORMONE 2.02 IU/mL 0.300-4.25 February 09, 2021 11:09 AM [facility] LIPID PANEL Specim en Type: SERUM Comment: [...] CONFIRMED BY REPEAT TESTING. CALLED TO HELIO GARCIA@[facility] 02-10-21/ALBERTO READ BACK OF CRITICAL VALUES OCCURRED FOR CONFIRMATION. CRITICAL RESULT KNOWN/REPORTED [id number] 02/10/21 Ordering Provid er: CHARISSE GARCIA Report Released Date/Time: Nov 07, 2020 04:38 PM Reporting Lab: [facility] [address] [place] [address] Performing Lab: [facility] Perera [address] [place] [address] CHOLESTEROL 246 mg/dL H <199 TRIGLYCERIDE 909 mg/dL H <149 HDL CHOLESTEROL 28 mg/dL L >40 NON-HDL CHOLESTEROL 218 mg/dL <130 LDL, DIRECT 86 mg/dL 0-129 February 09, 2021 11:09 AM [facility] URINALYSIS (IRIS) Spec imen Type: URINE No comment enter ed. Ordering Provid er: CHARISSE GARCIA Report Released Date/Time: Nov 07, 2020 04:38 PM Reporting Lab: [facility] [address] [place] [address] Performing Lab: [facility] Perera [address] [place] [address] URINE COLOR Light-Yellow SPECIFIC GRAVITY 1.032 H [...] < 2 February 09, 2021 11:09 AM [facility] HEMOGLOBIN A1C Specim en Type: BLOOD Comment: [...] 2020 04:38 PM Reporting Lab: [facility] [address] [place] [address] Performing Lab: [facility] [address] [place] [address] HEMOGLOBIN A1C 14.4 % H 0-5.6 Social [...] Comment Facility Feb 23, 2021 02:00 PM ME-TOBACCO FORMER USER [facility] Tobacco Use History This section includes a history of the smoking, or tobacco- related health factors, that were collected on or before the date of the Encounter. The data comes from the ME facility where the Encounter took place. Date/Time Smoking Status/Tobacco Use Comment [facility] Feb 23, 2021 02:00 PM VA-TOBACCO QUIT < 1 YEAR [facility] Jul 25, 2019 01:50 PM VA-TOBACCO DOESNT USE WI [facility] 30 MIN WAKEUP Jul 25, 2019 01:50 PM VA-TOBACCO USE > 15 LESS [facility] THAN 30 YEARS Jul 25, 2019 01:50 PM VA-TOBACCO USE ADVICE [facility] Jul 25, 2019 01:50 PM VA-TOBACCO USE LYMPHEDEMA THERAPIST NO [facility] Jul 25, 2019 01:50 PM VA-TOBACCO USE MED NOTIFY [facility] PROVIDER Jul 25, 2019 01:50 PM VA-TOBACCO USER EVERY DAY [facility] Jul 09, 2018 03:00 PM VA-TOBACCO USE > 15 LESS [facility] THAN 30 YEARS Jul 09, 2018 03:00 PM VA-TOBACCO USE ADVICE [facility] Jul 09, 2018 03:00 PM VA-TOBACCO USE LYMPHEDEMA THERAPIST NO [facility] Jul 09, 2018 03:00 PM VA-TOBACCO USE MED NO [facility] Jul 09, 2018 03:00 PM VA-TOBACCO USE WI 30 MIN [facility] Jul 09, 2018 03:00 PM VA-TOBACCO USER EVERY DAY [facility] Jan 10, 2018 12:55 PM TOBACCO MEDICATION [facility] INTERVENTION Sep 19, 2017 09:33 AM CURRENT TOBACCO USER [facility] Sep 19, 2017 09:33 AM TOBACCO SCREEN COMPLETED [facility] No, not willing to quit now Aug 12, 2016 01:53 PM CURRENT TOBACCO USER [facility] Aug 12, 2016 01:53 PM TOBACCO MEDICATION [facility] Dilma CDA[facility] Aug 12, 2016 01:53 PM TOBACCO SCREEN COMPLETED [facility] Yes, willing to quit now May 30, 2013 11:04 AM LIFETIME NON-USER OF [facility] TOBACCO Feb 22, 2012 09:19 AM CURRENT TOBACCO USER [facility] Feb 22, 2012 09:19 AM TOBACCO SCREEN COMPLETED [facility] No, not willing to quit now Mar 07, 2011 11:32 AM TOBACCO MEDICATION [facility] Feb 25, 2011 10:38 AM CURRENT TOBACCO USER Severity= [facility] Feb 25, 2011 10:38 AM TOBACCO MEDICATION Severity= [facility] HALEY Feb 25, 2011 10:38 AM TOBACCO SCREEN COMPLETED Severity= MINIMA [facility] Yes, willing to quit now Sep 27, 2010 11:38 AM TOBACCO MEDICATION [facility] INTERVENTION Sep 27, 2010 11:38 AM TOBACCO MEDICATION ORDERED [facility] Jan 04, 2010 10:28 AM CURRENT TOBACCO USER [facility] Jan 04, 2010 10:28 AM TOBACCO MEDICATION [facility] INTERVENTION Jan 04, 2010 10:28 AM TOBACCO MEDICATION ORDERED [facility] Jan 04, 2010 10:28 AM TOBACCO MEDICATION [facility] REFERRAL DR. CANELA Encounter Notes: All associated encounter notes This section contains the clinical notes associated to the Encounter. Date/Time Encounter Note(s) Provider Source Mar 10, 2021 10:14 AM SOCIAL WORK CONSULT: LION GUAMAN [facility] LOCAL TITLE: SOCIAL WORK CONSULTATION NOTE STANDARD TITLE: SOCIAL WORK CONSULT DATE OF NOTE: MAR 10, 2021@10:14 ENTRY DATE: MAR 10, 2021@10:14:09 AUTHOR: LION GUAMAN EXP COSIGNER: URGENCY: STATUS: COMPLETED SOCIAL WORK TRIAGE NOTE LOCATION: [facility] DATE/START TIME: Feb@10:14 PATIENT IDENTIFICATION confirmed by full name, d ate of and social security number prior to interview. HAND WASHING per ME standards was completed prio r to interview. DEMOGRAPHICS: Name: BARBARA PERERA Age: 40 Sex: FEMALE Race: WHITE VISIT TYPE: [X] Office Visit [ ] Telephone Visit [X] Scheduled Appointment [ ] Walk-in Appointment [ ] Warm Hand-off PRESENT: Patient SERVICE CONNECTION: Eligibility: SERVICE CONNECTED 50% to 100% VERIF IED Total S/C %: 90 MAJOR DEPRESSIVE DISORDER 70% S/C PARALYSIS OF SCIATIC NERVE 10% S/C PARALYSIS OF ANTERIOR CRURAL NERVE 10% S/C PARALYSIS OF ANTERIOR CRURAL NERVE 10% S/C OSTEOMALACIA 10% S/C DEGENERATIVE ARTHRITIS OF THE SPINE 40% S/C PARALYSIS OF SCIATIC NERVE 10% S/C ECZEMA 0% S/C MIGRAINE HEADACHES 30% S/C SUICIDE RISK ASSESSMENT ................................................ ........................... * Risk Factors: Yes/ * Intervention to address risk: Yes/ * Protective Factors: Yes/ * Risk Level Disposition: Low Risk SOCIAL WORK TRIAGE ASSESSMENT 40-year-old [employer] , Maki medina, was seen for scheduled appointment. Kathy reports to have toothpain and is in need of dealing with her dental issues. Kathy was provided options of community dentistry, as Kathy does not qualify for dental coverage. Stone reports to have contacted community and due to "houshold income," she do es not qulaify. Stone reports that between her and her , they make $8000 per month, however, Kathy identifies that her "keeps all his money and I keep all my m oney." Kathy was provided an option to work o n budget, however, Kathy states that she does it and sometimes she cannot make her mo nthly budget. Barbara states that she has 5 big dogs and food cost $200/month and that the idea of getting rid of any o f her dogs is not an option, as she states "I cannot have children and these dogs are my children." Kathy states that she has a truck payment and has to carry full coverage, this is is the biggest expense in her budget; Kathy reports that she could sell her truck, fix her broken truck that needs an aleternator and belt, lower insurance cost to liability. Kathy was provided with credit agency for [employer], [employer] phone number for picking up a broken car, [employer] for $500, and [facility] information to identify if there is a way to increase income. Kathy reprots that she is "too old to go to school." Kathy states that the [employer] program told her she was "too fat" and she quit. Kathy is eligible for VOC Rehab. Kathy states she lost her job during [employer] and is actively looking for a job and is unable to find work at this time. [facility], to identify if she could qualify for help with them, as her spouse is 100% [place]. Kathy denies SI, HI, or SHB, Kathy sherwood oes not appear to endorse delusions or hallucinations during this appt. Kathy appears to be unable to make monthly financial obligations with out help with her spouse, whom is unwilling to he lp, Stone with household income will not be able to qualify for a [place] assistance. Kathy appears to be challenged with the idea of reducing dogs to reduce bills. Kathy may follow up as needed. OBSERVATION OBSERVATION: Appearance:[X]Within Normal Limits [ ]Disheveled Behavior:[X]Cooperative [ ]Guarded Speech:[X]Within Normal Limits [ ] Mood:[X]Euthymic [ ]Depressed or Anxious [ ] Irr itable Affect:[X]Congruent/Reactive [ ]Tearful Thought Process:[X]Logical/linear [ ] Circumstan tial or Tangential Thought Content:[X]Within Normal Limits Insight/Judgment:[X]Adequate [ ]Fair [ ]Poor Cognition/Orientation:[X]Within Normal Limits SUICIDE RISK ASSESSMENT Suicidal: No Homicidal: No Hallucinations: No Delusions: No SUICIDE RISK SCREENING Current SI/HI? NO (If yes, complete the following. If no, indicat e N/A) Plan: No Intent: No Means: No Current/Active High Risk Flag for Suicide? NO Hx of Attempts/Ideation: none Risk Factors(circumstantial/environmental, etc. ): finacial issues and chronic pain Protective Factors(Supports/Personal characteri stics etc.): stable income, stable housing Intervention to address risk by clinician or Niya barcenas, (increased appts/safety planning/crisis referra l etc.): call 911, go to er, call crisis line Acute Risk Level Disposition (Low - Intermediat e High): Low Risk Chronic Risk Level Disposition (Low - Intermedi ate High): Low Risk If acute risk is intermediate or higher move on to level 2 screener (Harney C-SSRS) and if positive again, complet e the Suicide Risk Evaluation Comprehensive (CSRE), or contact appr ani BARONE for further evaluation and assistance. STRENGTHS: Capable of independent living, Insight i nto problems, Leisure skills/interests ACTIVE PROBLEMS DISCUSSED TODAY: Active Problem Decreased vitamin D E56.9 02/27/2021 TERE GARCIA Degeneration of lumbar intervertebr 05/09/2020 CHARISSE JIMENEZ Right hip pain M25.551 03/12/2020 CHARISSE GARCIA Major depression F33.1 10/24/2019 MECCA SANTIAGO Ca cervix - screening done R69., On 07/28/2019 CHARISSE JIMENEZ Pseudotumor cerebri R69., Onset 02/09/2019 S CHARISSE MAURICE Anaphylaxis due to ingested food R6 06/03/2018 CHARISSE JIMENEZ Acute otitis media H66.91 10/05/2017 TERE GARCIA Sprain of right ankle S93.491A 06/13/2017 CHARISSE GARCIA Knee injury S80.911S 06/17/2017 CHARISSE GARCIA Pain in right knee M25.561 05/09/2017 MARY GARCIA Ankle joint pain R69., Onset 08/15/ 08/21/2016 CHARISSE JIMENEZ Acute sinusitis J01.80 08/12/2016 CHARISSE GARCIA Nicotine dependence Z72.0 08/01/2016 MYRTLE MARLOW Pain in pelvis R10.2 05/17/2016 CHARISSE GARCIA Female pelvic inflammatory disease 05/02/2016 CHARISSE DICKSON HPV - Human papillomavirus test pos 04/28/2016 CHARISSE JIMENEZ Chronic sinusitis J32.9 04/28/2016 CHARISSE GARCIA Allergic rhinitis J30.89 04/28/2016 CHARISSE GARCIA Migraine R69., Onset 01/14/2016 01/24/2016 MARY GARCIATYLER Ballet[employer]os Viral meningitis R69., Onset 01/24/2016 CHARISSE JIMENEZ Acute sinusitis J01.90 10/13/2015 MARY GARCIAON 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 10/13/2015 Marlen GARCIA ARLEEN E Hyperlipidemia E78.5 02/27/2021 CHARISSE GARCIA Ureteric stone 592.1, Onset 12/08/2014 CHARISSE JIMENEZ Hypertriglyceridemia 272.1 07/22/2014 SHAYNE BRIGGS J Microscopic hematuria 599.72 07/22/2014 Scot BRIGGS J Borderline personality disorder (SN 03/14/2018 L ADIEL WILKINS Sprain of metacarpophalangeal joint 01/27/2014 CHARISSE JIMENEZ Favian Menorrhagia (SNOMED CT 437717496) 6 01/15/2014 CHARISSE JIMENEZ Favian Influenza 799.9, Onset 09/29/2013 11/16/2013 [facility] CHARISSE ESCOBEDO Favian Contraception (SNOMED CT 32436861) 10/17/2013 CAMILOCHARISSE Recurrent major depression (SNOMED 03/14/2018 LE ADIEL VALDOVINOS Benign intracranial hypertension (S 10/03/2019 S KAYLENECHARISSE Ballesteros Papilledema associated with increas 03/30/2009 C BRIDGET OLIVA Neck Pain (ICD-9-CM 723.1) 723.1 09/27/2010 BASIL ASKEW Diabetes mellitus (SNOMED CT 417399 04/24/2018 MARY JIMENEZTYLER Ballesteros Low back pain (SNOMED CT 797978249) 01/11/2019 MARY JIMENEZTYLER Ballesteros Knee: arthralgia 719.46 09/27/2010 NITA CLEMENTS Migraine, unspecified, without ment 01/07/2009 E DEISI OLIVO TREATMENT PLAN TOOLS USED: RESIDENT MEDICAL OFFICER used motivational interviewing techniques to include active listening, open questions, paraphrasing, and ref lective listening. 's GOALS FOR OVERALL CHANGE: Make monthly bills. TIME SPENT WITH : 30 MINUTES [ ] RTC order entered [ ] RTC telephone orders entered [x] RTC orders not needed RESIDENT MEDICAL OFFICER will continue to be available to provide marie pport and day camp counselor as or provider requests. The plan of care will be reviewed annually or mo re often as indicated. /elina/ LION GUAMAN Clinical Manufacturing Intern Signed: 03/10/2021 10:53
--- OUTSIDE RECORDS SUMMARY | 2021-09-20 19:13 | External Medical Summary | Encounter Summary ---
:1980 Author Organization Department [facility] Address [address] [place] [address] Care Team Providers Name Role Phone CHARISSE GARCIA Primary Care Provider Unavailable Selected Encounter This section includes the information on record at [place] for the Encounter. Date/Time Encounter Type Encounter Description Reason Provider Source Mar 05, 2021 11:13 Outpatient Encounter PRIMARY CARE/MEDICINE AM IHE Encounter Template Text not used by [place] Plan of Treatment: Future Appointments (+ 6 months) and Future Tests (+/- 45 days) The Plan of Treatment section includes future care activities for the patient from all [place] treatmentfacilities. This section includes future appointments and future orders which are active, pending orscheduled.Future Appointments This section includes appointments that were scheduled to occur 6 months from the date of the Encounter, up to a maximum of 20 appointments. The data comes from all [place] treatment facilities. Appointment Date/Time Appointment Type Appointment Facili ty Name Mar 10, 2021 09:30 AM AMBULATORY - PSYCHIATRY [facility] [place] Mar 10, 2021 10:00 AM AMBULATORY - MEDICINE MATIAS MOYA [facility] Mar 16, 2021 11:00 AM AMBULATORY - MEDICINE [facility] IC Mar 24, 2021 09:30 AM AMBULATORY - PSYCHIATRY [facility] [place] Apr 22, 2021 03:15 PM AMBULATORY - MEDICINE [facility] IC Apr 23, 2021 02:30 PM AMBULATORY - MEDICINE [facility] IC Apr 27, 2021 07:30 AM AMBULATORY - PSYCHIATRY [facility] [place] Apr 29, 2021 02:00 PM AMBULATORY - MEDICINE MATIAS MBianka JUSTINRENE NITA [facility] Apr 29, 2021 02:30 PM AMBULATORY - MEDICINE [facility] IC May 12, 2021 02:31 PM AMBULATORY - MEDICINE [facility] IC Jun 04, 2021 03:00 PM AMBULATORY - MEDICINE [facility] Jun 22, 2021 08:30 AM AMBULATORY - MEDICINE [facility] Jun 29, 2021 01:00 PM AMBULATORY - MEDICINE [facility] IC Jul 01, 2021 08:00 AM AMBULATORY - NONE MATIAS Perera BIN [facility] Jul 07, 2021 07:00 AM AMBULATORY - NONE MATIAS MBianka STEWARD [facility] Jul 15, 2021 03:00 PM AMBULATORY - MEDICINE [facility] IC Jul 26, 2021 09:00 AM AMBULATORY - MEDICINE [facility] IC Aug 04, 2021 01:00 PM AMBULATORY - MEDICINE [facility] IC Aug 05, 2021 01:20 PM AMBULATORY - MEDICINE MATIAS MarlenBianka MOYA [facility] Aug 06, 2021 08:15 AM AMBULATORY - [facility] IC Active, Pending, and Scheduled Orders This section includes a listing of several types of active, pending, and scheduled orders, including clinic medications orders, diagnostic test orders, procedure orders and consult orders; where the start date of the order is 45 days before the date of the Encounter or 45 days after the date of the Encounter. The data comes from all [place] treatment facilities. Test Date/Time Test Type Test Details Facility Name Feb 16, 2021 03:11 PM Consult Order [facility]-OPHTH DIS M GMT [facility] Cons Supply And Distribution Manager's Choice Mar 23, 2021 08:57 AM Consult Order [facility] Cons Supply And Distribution Manager's Choice Lab Results: +/- 30 days of [...] Interpretation Reference Range Comment February 09, 2021 [facility] VITAMIN D (25-HYDROXY) Speci men Type: [...] CONFIRMED BY REPEAT TESTING. CALLED TO HELIO GARCIA@[id number]/ALBERTO READ BACK OF CRITICAL VALUES OCCURRED FOR CONFIRMATION. CRITICAL RESULT KNOWN/REPORTED 02/10/21 Ordering Provid er: CHARISSE GARCIA Report Released Date/Time: Nov 07, 2020 04:38 PM Reporting Lab: [facility] [place] [address] [place] [phone] Performing Lab: [facility] [place] [address] [place] [phone] VITAMIN D (25-HYDROXY) 24.2 ng/mL L 30.0-1 February 09, 2021 11:09 AM [facility] MAGNESIUM Specim en Type: SERUM Comment: [...] CONFIRMED BY REPEAT TESTING. CALLED TO HELIO GARCIA@48002-10-21/ALBERTO READ BACK OF CRITICAL VALUES OCCURRED FOR CONFIRMATION. CRITICAL RESULT KNOWN/REPORTED 02/10/21 Ordering Provid er: CHARISSE GARCIA Report Released Date/Time: Nov 07, 2020 04:38 PM Reporting Lab: [facility] [place] [address] [place] [address] Performing Lab: [place] [address] [place] [phone] MAGNESIUM 1.9 mg/dL 1.6-2.6 February 09, 2021 11:09 AM [facility] VITAMIN B-12 Specim en Type: SERUM Comment: High d oses of Biotin supplements (>5 mg/day) may falsely increase Vitamin B-12, Vitamin D (25OH), Free T4, and Folate results. Test specimens should be collected at least 8 hrs after last ingestion of high dose biotin. Ordering Provid er: CHARISSE GARCIA Report Released Date/Time: Nov 07, 2020 04:38 PM Reporting Lab: [facility] [place] [address] [place] [phone] Performing Lab: [place] [place] [address] [place] [address] VITAMIN B-12 996 pg/mL 232-1245 February 09, 2021 [facility] COMPREHENSIVE METABOLIC Spec imen Type: SERUM [...] CONFIRMED BY REPEAT TESTING. CALLED TO HELIO GARCIA@2203 02-10-21/NS READ BACK OF CRITICAL VALUES OCCURRED FOR CONFIRMATION. CRITICAL RESULT KNOWN/REPORTED [id number] 02/10/21 Ordering Provid er: CHARISSE GARCIA Report Released Date/Time: Nov 07, 2020 04:38 PM Reporting Lab: [place] [place] [address] [place] [phone] Performing Lab: [facility] [place] [address] [place] [address] GLUCOSE 502 mg/dL 71-109 BUN/UREA (BLOOD UREA [...] L > 90 February 09, 2021 11:09 [facility] CBC & MORPHOLOGY (WITH Sp ecimen Type: BLOOD AM DIFF) No comment enter ed. Ordering Provid er: CHARISSE GARCIA Report Released Date/Time: Nov 07, 2020 04:38 PM Reporting Lab: [facility] [address] [place] [address] Performing Lab: [facility] [address] [place] [address] WBC (TOTAL WBC COUNT) 10.1 K/L 3.0-10. [...] ABSOLUTE 0.02 K/L 0-0.07 February 09, 2021 [facility] THYROID STIMULATING Specimen Type: SERUM 11:09 [...] CONFIRMED BY REPEAT TESTING. CALLED TO HELIO GARCIA@9653 02-10-21/NS READ BACK OF CRITICAL VALUES OCCURRED FOR CONFIRMATION. CRITICAL RESULT KNOWN/REPORTED [id number] 02/10/21 Ordering Provid er: CHARISSE GARCIA Report Released Date/Time: Nov 07, 2020 04:38 PM Reporting Lab: [facility] [address] [place] [address] Performing Lab: MATIAS STEWARD[address] [place] [address] THYROID STIMULATING HORMONE 2.02 IU/mL 0.300-4.25 February 09, 2021 11:09 AM [facility] LIPID PANEL Specim en Type: SERUM [...] CONFIRMED BY REPEAT TESTING. CALLED TO HELIO GARCIA@5213 02-10-21/NS READ BACK OF CRITICAL VALUES OCCURRED FOR CONFIRMATION. CRITICAL RESULT KNOWN/REPORTED [id number] 02/10/21 Ordering Provid er: CHARISSE GARCIA Report Released Date/Time: Nov 07, 2020 04:38 PM Reporting Lab: [place] [place] [address] [place] [address] Performing Lab: [place] [place] [address] [place] [address] CHOLESTEROL 246 mg/dL H <199 TRIGLYCERIDE 909 mg/dL H <149 HDL CHOLESTEROL 28 mg/dL L >40 NON-HDL CHOLESTEROL 218 mg/dL <130 LDL, DIRECT 86 mg/dL 0-129 February 09, 2021 11:09 AM [facility] URINALYSIS (IRIS) Spec imen Type: URINE No comment enter ed. Ordering Provid er: CHARISSE GARCIA Report Released Date/Time: Nov 07, 2020 04:38 PM Reporting Lab: [facility] [place] [address] [place] [address] Performing Lab: MATIAS Perera [address] [place] [address] URINE COLOR Light-Yellow SPECIFIC GRAVITY 1.032 H [...] < 2 February 09, 2021 11:09 AM [facility] HEMOGLOBIN A1C Specim en Type: BLOOD [...] 2020 04:38 PM Reporting Lab: MATIAS Perera [address] [place] [address] Performing Lab: MATIAS Perera [address] [place] [address] HEMOGLOBIN A1C 14.4 % H 0-5.6 Social History: Smoking Status (Most current) and Tobacco Use (All prior to encounter date) This section includes the most current, and the historical, smoking and tobacco-related health factors from the [place] facility where the Encounter took place.Current Smoking Status This section includes the most current smoking, or tobacco-related health factor, from the [place] facility where the Encounter took place. Date/Time Current Smoking Status Comment Facility Jan 07, 2009 09:40 AM CURRENT TOBACCO USER [facility] Encounter Notes: All associated encounter notes This section contains the clinical notes associated to the Encounter. Date/Time Encounter Note(s) Provider Source Mar 05, 2021 11:14 AM MEDICATION MGT NOTE: CHARISSE GARCIA [facility] LOCAL TITLE: NON-VA MEDICATION - ILIAMNA STANDARD TITLE: MEDICATION MGT NOTE DATE OF NOTE: MAR 05, 2021@11:14 ENTRY DATE: MAR 05, 2021@11:14:48 AUTHOR: CHARISSE GARCIA EXP COSIGNER: URGENCY: STATUS: COMPLETED [facility] [address] [place] [address] Today's Date: MAR 05, 2021 Name: BARBARA PERERA : Mar Address: Phone:[phone] [address] [place] [address] Allergy/ADR: GLIPIZIDE, METFORMIN AMOXICILLIN 875/CLAV K 125MG TAB Sig: TAKE ONE TABLET BY MOUTH TWICE A DAY x14 days Quantity:____28___ Refills:__none PREDNISONE 20MG TAB Sig: TAKE TWO TABLETS BY MOUTH EVERY DAY x5 day s Quantity:__10 Refills:__none yes ____ Substitution Permitted Dispense as Written /elina/ Charisse CADET Nurse Practitioner Signed: 03/05/2021 11:16
--- OUTSIDE RECORDS SUMMARY | 2021-09-20 19:13 | External Medical Summary | Encounter Summary ---
:1980 Author Organization Department of [facility] Address [address] [place] [address] Care Team Providers Name Role Phone CHARISSE GARCIA Primary Care Provider Unavailable Selected Encounter This section includes the information on record at [place] for the Encounter. 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 Date/Time Primary/Secondary Diagnosis Name Provider Source Diagnosis Mar 16, 2021 PRIMARY long term care social worker JAIDEN MARLOW [facility] 01:28 PM (current) use of CLINIC opiate analgesic Plan of Treatment: Future Appointments (+ 6 [...] 24, 2021 09:30 AM AMBULATORY - PSYCHIATRY [facility] INIC Apr 22, 2021 03:15 PM AMBULATORY - MEDICINE [facility] CL[facility] IC Apr 23, 2021 02:30 PM AMBULATORY - MEDICINE [facility] CL[facility] IC Apr 27, 2021 07:30 AM AMBULATORY - PSYCHIATRY [facility] Apr 29, 2021 02:00 PM AMBULATORY - MEDICINE MATIAS MOYA [facility] Apr 29, 2021 02:30 PM AMBULATORY - MEDICINE [facility] CLIN IC May 12, 2021 02:31 PM AMBULATORY - MEDICINE [facility] CL[facility] IC Jun 04, 2021 03:00 PM AMBULATORY - MEDICINE [facility] IC Jun 22, 2021 08:30 AM AMBULATORY - MEDICINE [facility] IC Jun 29, 2021 01:00 PM AMBULATORY - MEDICINE [facility] IC Jul 01, 2021 08:00 AM AMBULATORY - NONE MATIAS STEWARD [facility] Jul 07, 2021 07:00 AM AMBULATORY - NONE MATIAS STEWARD [facility] Jul 15, 2021 03:00 PM AMBULATORY - MEDICINE [facility] CL[facility] IC Jul 26, 2021 09:00 AM AMBULATORY - MEDICINE [facility] IC Aug 04, 2021 01:00 PM AMBULATORY - MEDICINE [facility] IC Aug 05, 2021 01:20 PM AMBULATORY - MEDICINE MATIAS MOYA [facility] Aug 06, 2021 08:15 AM AMBULATORY - MEDICINE [facility] IC Aug 10, 2021 03:30 PM AMBULATORY - MEDICINE [facility] IC Aug 11, 2021 11:10 AM AMBULATORY - NONE MATIAS STEWARD [facility] Aug 17, 2021 03:00 PM AMBULATORY - MEDICINE [facility] IC Active, Pending, and Scheduled Orders [...] Consult Order [facility]OPHTH DIS M GMT [facility] Cons Drop Wire Aligner's Choice Mar 23, 2021 08:57 AM Consult Order [facility] Cons Drop Wire Aligner's Choice Surgical Procedures: All associated to the encounter This section includes all Surgical Procedures and Surgical Procedure Notes associated to the Encounter.Surgical Procedures This section includes all Surgical Procedures associated to the Encounter.Surgical Procedure Date/Time Procedure Procedure Type Procedure Provider Source Qualifiers Mar 16, 2021 Non-Phys EHR QNHP JAIDEN FABIAN [facility] 11:00 AM Asmnt,5-10 min ASSMT&MGMT A CLINIC 5-10 Surgical Notes There are no notes associat [...] the Encounter. The data comes from the [facility] where the Encounter took place. Date/Time Smoking Status/Tobacco Use Comment [facility] Feb 23, 2021 02:00 PM VA-TOBACCO QUIT < 1 YEAR L [facility] Jul 25, 2019 01:50 PM VA-TOBACCO DOESNT USE WI [facility] 30 MIN WAKEUP Jul 25, 2019 01:50 PM VA-TOBACCO USE > 15 LESS L [facility] THAN 30 YEARS Jul 25, 2019 01:50 PM VA-TOBACCO USE ADVICE [facility] Jul 25, 2019 01:50 PM VA-TOBACCO USE KNOCKER OFF NO [facility] Jul 25, 2019 01:50 PM VA-TOBACCO USE MED NOTIFY [facility] PROVIDER Jul 25, 2019 01:50 PM VA-TOBACCO USER EVERY DAY [facility] Jul 09, 2018 03:00 PM VA-TOBACCO USE > 15 LESS L [facility] THAN 30 YEARS Jul 09, 2018 03:00 PM VA-TOBACCO USE ADVICE [facility] Jul 09, 2018 03:00 PM VA-TOBACCO USE KNOCKER OFF NO [facility] Jul 09, 2018 03:00 PM VA-TOBACCO USE MED NO [facility] Jul 09, 2018 03:00 PM VA-TOBACCO USE WI 30 MIN L [facility] Jul 09, 2018 03:00 PM VA-TOBACCO USER EVERY DAY [facility] Jan 10, 2018 12:55 PM TOBACCO MEDICATION [place] [facility] INTERVENTION Sep 19, 2017 09:33 AM CURRENT TOBACCO USER [facility] Sep 19, 2017 09:33 AM TOBACCO SCREEN COMPLETED [facility] No, not willing to quit now Aug 12, 2016 01:53 PM CURRENT TOBACCO USER [facility] Aug 12, 2016 01:53 PM TOBACCO MEDICATION [place] [facility] REFERRAL MarlenBianka CADET Aug 12, 2016 01:53 PM TOBACCO SCREEN COMPLETED [facility] Yes, willing to quit now May 30, 2013 11:04 AM LIFETIME NON-USER OF [facility] TOBACCO Feb 22, 2012 09:19 AM CURRENT TOBACCO USER [facility] Feb 22, 2012 09:19 AM TOBACCO SCREEN COMPLETED [facility] No, not willing to quit now Mar 07, 2011 11:32 AM TOBACCO MEDICATION [place] [facility] INTERVENTION Feb 25, 2011 10:38 AM CURRENT TOBACCO USER Severity= MINIMAL [facility] Feb 25, 2011 10:38 AM TOBACCO MEDICATION Severity= MINIMAL BRIT PEREZ [facility] REFERRAL DR HALEY Feb 25, 2011 10:38 AM TOBACCO SCREEN COMPLETED Severity= MINIMA [facility] Yes, willing to quit now Sep 27, 2010 11:38 AM TOBACCO MEDICATION [place] [facility] INTERVENTION Sep 27, 2010 11:38 AM TOBACCO MEDICATION ORDERED [facility] Jan 04, 2010 10:28 AM CURRENT TOBACCO USER [facility] Jan 04, 2010 10:28 AM TOBACCO MEDICATION [place] [facility] INTERVENTION Jan 04, 2010 10:28 AM TOBACCO MEDICATION ORDERED [facility] Jan 04, 2010 10:28 AM TOBACCO MEDICATION [place] [facility] REFERRAL DR. CANELA Encounter Notes: All associated encounter notes This section contains the clinical notes associated to the Encounter. Date/Time Encounter Note(s) Provider Source Mar 16, 2021 01:24 PM INTERNAL MEDICINE CLINICAL P HARMACIST MEDICATION MGT CONSULT: JAIDEN MARLOW [facility] LOCAL TITLE: CLINICAL PHARMACIST NOTE STANDARD TITLE: INTERNAL MEDICINE CLINICAL PHARM ACIST MEDICATION DATE OF NOTE: MAR 16, 2021@13:24 ENTRY DATE: MAR 16, 2021@13:24:11 AUTHOR: JAIDEN MARLOW EXP COSIGNER: URGENCY: STATUS: COMPLETED CLINICAL PHARMACIST NOTE Has ADDENDA chart reviewed s / b: [facility] demic detailing population based data dashboard for nal oxone. patient has not had an active naloxone order in the past 12 months. RIOSORD score: 7 (3%) terminal clerk opioid: Order Text: CODEINE 60MG/ACETAMINOPHEN 300MG TAB TAKE TWO TABLETS BY MOUTH AM NEEDED AND TAKE ONE TABLET BY MOUTH AT BEDTIME FOR PAIN Quantity: 84 Refills: 3 a / r: 1. snf opioid: -- naloxone renewed this date. : iMED consent on file 04/2017 : annual UDS is NOT on file : PCP is monitoring PDMP 2 note to team: : please assist with lab appt and orders for an nual UDS monitoring. time spent: 6 minutes Clinical Reminders Done Today PBM PharmD Pharmacotherapy Rem V11: PHARMACIST INTERVENTIONS: PAIN MANAGEMENT Medication Intervention(s) Naloxone kit ordered /elina/ JAIDEN MARLOW PHARM D, BCACP CLINICAL SUPERVISOR CAPACITOR PROCESSING Signed: 03/16/2021 13:29 Receipt Acknowledged By: 03/17/2021 09:34 /elina/ VERÓNICA FISH RN * AWAITING SIGNATURE * GIULIANO GAMINO 03/17/2021 ADDENDUM STATUS: COMPLETED UDS entered and held for sig /elina/ VERÓNICA FISH RN Signed: 03/17/2021 09:36 03/18/2021 ADDENDUM STATUS: COMPLETED Called , left vm. Calling to [facility] [place]. Please transfer to [facility] for scheduling. /elina/ GIULIANO GAMINO AMSA Signed: 03/18/2021 14:36
--- OUTSIDE RECORDS SUMMARY | 2021-09-20 19:14 | External Medical Summary | Encounter Summary ---
:1980 Author Organization Department [facility] Address [address] [place] [address] Care Team Providers Name Role Phone CHARISSE GARCIA Primary Care Provider Unavailable Selected Encounter This section includes the information on record at [place] for the Encounter. Date/Time Encounter Type Encounter Description Reason Provider Source Feb 24, 2021 06:08 Outpatient Encounter TELEPHONE TRIAGE AM IHE Encounter Template Text not used by [place] Plan of Treatment: Future Appointments (+ 6 months) and Future Tests (+/- 45 days) The Plan of Treatment section includes future care activities for the patient from all [place] treatmentfacilities. This section includes future appointments and future orders which are active, pending orscheduled.Future Appointments This section includes appointments that were scheduled to occur 6 months from the date of the Encounter, up to a maximum of 20 appointments. The data comes from all [place] treatment facilities. Appointment Date/Time Appointment Type Appointment Facili ty Name Mar 05, 2021 10:30 AM AMBULATORY - MEDICINE [facility] Mar 10, 2021 09:30 AM AMBULATORY - PSYCHIATRY [facility] [place] Mar 10, 2021 10:00 AM AMBULATORY - MEDICINE [facility]AS MOYA [facility] Mar 16, 2021 11:00 AM AMBULATORY - MEDICINE [facility] Mar 24, 2021 09:30 AM AMBULATORY - PSYCHIATRY [facility] [place] Apr 22, 2021 03:15 PM AMBULATORY - MEDICINE [facility] Apr 23, 2021 02:30 PM AMBULATORY - MEDICINE [facility] Apr 27, 2021 07:30 AM AMBULATORY - PS[facility]CHIATRY [facility] Apr 29, 2021 02:00 PM AMBULATORY - MEDICINE [facility]AS MOYA [facility] Apr 29, 2021 02:30 PM AMBULATORY - MEDICINE [facility] May 12, 2021 02:31 PM AMBULATORY - MEDICINE [facility] Jun 04, 2021 03:00 PM AMBULATORY - MEDICINE [facility] Jun 22, 2021 08:30 AM AMBULATORY - MEDICINE [facility] Jun 29, 2021 01:00 PM AMBULATORY - MEDICINE [facility] Jul 01, 2021 08:00 AM AMBULATORY - NONE MATIAS MBianka STEWARD [facility] Jul 07, 2021 07:00 AM AMBULATORY - NONE [facility] STEWARD [facility] Jul 15, 2021 03:00 PM AMBULATORY - MEDICINE [facility] Jul 26, 2021 09:00 AM AMBULATORY - MEDICINE [facility] Aug 04, 2021 01:00 PM AMBULATORY - MEDICINE [facility] Aug 05, 2021 01:20 PM AMBULATORY - MEDICINE MATIAS MOYA [facility] Active, Pending, and Scheduled Orders This section includes a listing of several types of active, pending, and scheduled orders, including clinic medications orders, diagnostic test orders, procedure orders and consult orders; where the start date of the order is 45 days before the date of the Encounter or 45 days after the date of the Encounter. The data comes from all [place] treatment facilities. Test Date/Time Test Type Test Details Facility Name Feb 16, 2021 03:11 PM Consult Order [facility]-OPHTH DIS M GMT [facility] Cons Chief Underwriter's Choice Mar 23, 2021 08:57 AM Consult Order [facility] Cons Chief Underwriter's Choice Lab Results: +/- 30 days of the encounter This section includes the Chemistry and Hematology Lab Results on record with [place] for the patient. Radiology Reports and Pathology Reports are provided separately, in subsequent sections.Lab Results This section contains the Chemistry/Hematology Results that were resulted 30 days before or 30 daysafter the date of the Encounter. Date/Time Source Result Type Result - Unit Interpretation Reference Range Comment February 09, 2021 [facility] VITAMIN D (25-HYDROXY) Speci men Type: [...] CONFIRMED BY REPEAT TESTING. CALLED TO HELIO GARCIA@[id number]/ALBERTO READ BACK OF CRITICAL VALUES OCCURRED FOR CONFIRMATION. CRITICAL RESULT KNOWN/REPORTED 02/10/21 Ordering Provid er: CHARISSE GARCIA Report Released Date/Time: Nov 07, 2020 04:38 PM Reporting Lab: MATIAS CLARK [place] [address] [place] [address] Performing Lab: MATIAS CLARK [place] [address] [place] [address] VITAMIN D (25-HYDROXY) 24.2 ng/mL L 30.0-1 00 February 09, 2021 11:[address] [facility] MAGNESIUM Specim en Type: SERUM Comment: [...] CONFIRMED BY REPEAT TESTING. CALLED TO HELIO GARCIA@5114 02-10-21/ALBERTO READ BACK OF CRITICAL VALUES OCCURRED FOR CONFIRMATION. CRITICAL RESULT KNOWN/REPORTED 02/10/21 Ordering Provid er: CHARISSE GARCIA Report Released Date/Time: Nov 07, 2020 04:38 PM Reporting Lab: MATI[facility] CLARK [place] [address] [place] [address] Performing Lab: [place] [address] [place] [address] MAGNESIUM 1.9 mg/dL 1.6-2.6 February 09, 2021 11:[address] [facility] VITAMIN B-12 Specim en Type: SERUM Comment: High d oses of Biotin supplements (>5 mg/day) may falsely increase Vitamin B-12, Vitamin D (25OH), Free T4, and Folate results. Test specimens should be collected at least 8 hrs after last ingestion of high dose biotin. Ordering Provid er: CHARISSE GARCIA Report Released Date/Time: Nov 07, 2020 04:38 PM Reporting Lab: [place] [address] [place] [address] Performing Lab: MATIAS Perera [place] [address] [place] [address] VITAMIN B-12 996 pg/mL 232-1245 February 09, 2021 [facility] COMPREHENSIVE METABOLIC Spec imen Type: SERUM [...] CONFIRMED BY REPEAT TESTING. CALLED TO HELIO GARCIA@3023 02-10-21/NS READ BACK OF CRITICAL VALUES OCCURRED FOR CONFIRMATION. CRITICAL RESULT KNOWN/REPORTED 1237/[id number] 02/10/21 Ordering Provid er: CHARISSE GARCIA Report Released Date/Time: Nov 07, 2020 04:38 PM Reporting Lab: [place] [address] [place] [address] Performing Lab: [place] [address] [place] [address] GLUCOSE 502 mg/dL 71-109 BUN/UREA (BLOOD UREA [...] L > 90 February 09, 2021 11:09 [facility] CBC & MORPHOLOGY (WITH Sp ecimen Type: BLOOD AM DIFF) No comment enter ed. Ordering Provid er: CHARISSE GARCIA Report Released Date/Time: Nov 07, 2020 04:38 PM Reporting Lab: MATIAS CLARK [address] [place] [address] Performing Lab: MATIAS CLARK [address] [place] [address] WBC (TOTAL WBC COUNT) 10.1 K/L 3.0-10. [...] ABSOLUTE 0.02 K/L 0-0.07 February 09, 2021 [facility] THYROID STIMULATING Specimen Type: SERUM 11:09 [...] CONFIRMED BY REPEAT TESTING. CALLED TO HELIO GARCIA@9743 02-10-21/NS READ BACK OF CRITICAL VALUES OCCURRED FOR CONFIRMATION. CRITICAL RESULT KNOWN/REPORTED 1237/1243 02/10/21 Ordering Provid er: CHARISSE GARCIA Report Released Date/Time: Nov 07, 2020 04:38 PM Reporting Lab: MATIAS CLARK [address] [place] [address] Performing Lab: MATIAS CLARK [address] [place] [address] THYROID STIMULATING HORMONE 2.02 IU/mL 0.300-4.25 February 09, 2021 11:[address] [facility] LIPID PANEL Specim en Type: SERUM [...] CONFIRMED BY REPEAT TESTING. CALLED TO HELIO GARCIA@7563 02-10-21/NS READ BACK OF CRITICAL VALUES OCCURRED FOR CONFIRMATION. CRITICAL RESULT KNOWN/REPORTED 1237/1243 02/10/21 Ordering Provid er: CHARISSE GARCIA Report Released Date/Time: Nov 07, 2020 04:38 PM Reporting Lab: MATIAS JUSTIN[address] [place] [address] Performing Lab: MATIAS Perera [address] [place] [address] CHOLESTEROL 246 mg/dL H <199 TRIGLYCERIDE 909 mg/dL H <149 HDL CHOLESTEROL 28 mg/dL L >40 NON-HDL CHOLESTEROL 218 mg/dL <130 LDL, DIRECT 86 mg/dL 0-129 February 09, 2021 11:[address] [facility] URINALYSIS (IRIS) Spec imen Type: URINE No comment enter ed. Ordering Provid er: CHARISSE GARCIA Report Released Date/Time: Nov 07, 2020 04:38 PM Reporting Lab: MATIAS STEWARD[address] [place] [address] Performing Lab: MATIAS Perera [address] [place] [address] URINE COLOR Light-Yellow SPECIFIC GRAVITY 1.032 H [...] < 2 February 09, 2021 11:[address] [facility] HEMOGLOBIN A1C Specim en Type: BLOOD [...] 2020 04:38 PM Reporting Lab: MATIAS Perera [address] [place] [place] [address] Performing Lab: MATIAS Perera [address] [place] [place] [address] HEMOGLOBIN A1C 14.4 % H 0-5.6 Social History: Smoking Status (Most current) and Tobacco Use (All prior to encounter date) This section includes the most current, and the historical, smoking and tobacco-related health factors from the [place] facility where the Encounter took place.Current Smoking Status This section includes the most current smoking, or tobacco-related health factor, from the [place] facility where the Encounter took place. Date/Time Current Smoking Status Comment Facility Jan 07, 2009 09:40 AM CURRENT TOBACCO USER EDGAR Perera [facility] Encounter Notes: All associated encounter notes This section contains the clinical notes associated to the Encounter. Date/Time Encounter Note(s) Provider Source Feb 24, 2021 06:08 AM ACCOUNTING OF DISCLOSURES NOTE: QASIM LEE JR [facility] LOCAL TITLE: STATE PRESCRIPTION DRUG MONITORING PROGRAM NOTE STANDARD TITLE: ACCOUNTING OF DISCLOSURES NOTE DATE OF NOTE: FEB 24, 2021@06:08:24 ENTRY DATE: FEB 24, 2021@06:08:24 AUTHOR: ROXANNA LEE JR EXP COSIGNER: URGENCY: STATUS: COMPLETED This PDMP query was submitted by Roxanna Lee Jr. The clinical justification for this PDMP query i s to review controlled substances prescribed outside of the [facility], and any additional information that may become available, as an important compo nent of standard clinical care, and in accordance with [facility] policy. Patient information was shared with the PDMP [employer] [place]. No prescription(s) for controlled substances out side the [facility] were found in the last 90 days. /elina/ ROXANNA LEE JR [facility] ADPAC Signed: 02/24/2021 06:08
--- OUTSIDE RECORDS SUMMARY | 2021-09-20 19:14 | External Medical Summary | Encounter Summary ---
:1980 Author Organization Department of [facility] rs Address [address] [place] [address] Care Team Providers Name Role Phone CHARISSE GARCIA Primary Care Provider Unavailable Selected Encounter This section includes the information on record at [place] for the Encounter. Date/Time Encounter Type Encounter Reason Provider Source Description Mar 05, 2021 HC PRO PHONE TELEPHONE PRIMARY ICD-10-CM Z71.89 BRETT FISH 10:30 AM CALL 5-10 MIN CARE Other specified counseling with Provider Comments: Counseling,Oth Specified IHE Encounter Template Text not used by [place] Assessments - Encounter Diagnoses This section includes the primary and secondary diagnoses documented for the Encounter. Date/Time Primary/Secondary Diagnosis Name Provider Source Diagnosis Mar 05, 2021 PRIMARY Other specified VERÓNICA FISH [facility] 10:30 AM counseling CLINIC Plan of Treatment: Future Appointments [...] 10, 2021 09:30 AM AMBULATORY - PSYCHIATRY [facility] INIC Mar 10, 2021 10:00 AM AMBULATORY - MEDICINE MATIAS MOYA [facility] Mar 16, 2021 11:00 AM AMBULATORY - MEDICINE [facility] CLIN IC Mar 24, 2021 09:30 AM AMBULATORY - PSYCHIATRY [facility] CL IN Apr 22, 2021 03:15 PM AMBULATORY - MEDICINE [facility] CLIN IC Apr 23, 2021 02:30 PM AMBULATORY - MEDICINE [facility] CL[facility] IC Apr 27, 2021 07:30 AM AMBULATORY - PSYCHIATRY [facility] CL IN Apr 29, 2021 02:00 PM AMBULATORY - MEDICINE MATIAS MOYA [facility] Apr 29, 2021 02:30 PM AMBULATORY - MEDICINE [facility] CL[facility] IC May 12, 2021 02:31 PM AMBULATORY - MEDICINE [facility] CLIN IC Jun 04, 2021 03:00 PM AMBULATORY - MEDICINE [facility] CLIN IC Jun 22, 2021 08:30 AM AMBULATORY - MEDICINE [facility] CLIN IC Jun 29, 2021 01:00 PM AMBULATORY - MEDICINE [facility] CLIN IC Jul 01, 2021 08:00 AM AMBULATORY - NONE [facility]IAS STEWARD [facility] Jul 07, 2021 07:00 AM AMBULATORY - NONE MATIAS STEWARD [facility] Jul 15, 2021 03:00 PM AMBULATORY - MEDICINE [facility] CLIN IC Jul 26, 2021 09:00 AM AMBULATORY - MEDICINE [facility] CL[facility] IC Aug 04, 2021 01:00 PM AMBULATORY - MEDICINE [facility] CL[facility] IC Aug 05, 2021 01:20 PM AMBULATORY - MEDICINE MATIAS MOYA [facility] Aug 06, 2021 08:15 AM AMBULATORY - MEDICINE [facility] CLIN IC Active, Pending, and [...] 2021 03:11 PM Consult Order [facility] TYRELL Gee T [facility] Cons Abstracter's Choice Mar 23, 2021 08:57 AM Consult Order [facility] Cons Abstracter's Choice Surgical Procedures: All associated to the encounter This section includes all Surgical Procedures and Surgical Procedure Notes associated to the Encounter.Surgical Procedures This section includes all Surgical Procedures associated to the Encounter.Surgical Procedure Date/Time Procedure Procedure Type Procedure Provider Source Qualifiers Mar 05, 2021 PHONE CALL BY HC PRO PHONE [facility] PROF 5-10 CALL 5-10 MIN CLINIC [...] Interpretation Reference Range Comment February 09, 2021 [facility] VITAMIN D (25-HYDROXY) Speci men Type: [...] CONFIRMED BY REPEAT TESTING. CALLED TO HELIO GARCIA@2884 02-10-21/NS READ BACK OF CRITICAL VALUES OCCURRED FOR CONFIRMATION. CRITICAL RESULT KNOWN/REPORTED [id number] 02/10/21 Ordering Provid er: CHARISSE GARCIA Report Released Date/Time: Nov 07, 2020 04:38 PM Reporting Lab: [facility] CLARK [place] [address] [place] [address] Performing Lab: MATIAS CLARK [place] [address] [place] [address] VITAMIN D (25-HYDROXY) 24.2 ng/mL L 30.0-1 00 February 09, 2021 11:09 AM [facility] MAGNESIUM Specim en Type: SERUM Comment: [...] RESULTS CONFIRMED BY REPEAT TESTING. CALLED TO MECHANICAL PROJECT ENGINEERMichelle GARCIA@3 02-10-21/NS READ BACK OF CRITICAL VALUES OCCURRED FOR CONFIRMATION. CRITICAL RESULT KNOWN/REPORTED 1237/[id number] 02/10/21 Ordering Provid er: CHARISSE GARCIA Report Released Date/Time: Nov 07, 2020 04:38 PM Reporting Lab: [place] [address] [place] [address] Performing Lab: [place] [address] [place] [address] MAGNESIUM 1.9 mg/dL 1.6-2.6 February 09, 2021 11:09 AM [facility] VITAMIN B-12 Specim en Type: SERUM Comment: High d oses of Biotin supplements (>5 mg/day) may falsely increase Vitamin B-12, Vitamin D (25OH), Free T4, and Folate results. Test specimens should be collected at least 8 hrs after last ingestion of high dose biotin. Ordering Provid er: CAHRISSE GARCIA Report Released Date/Time: Nov 07, 2020 04:38 PM Reporting Lab: MATI[facility] CLARK [place] [address] [place] [address] Performing Lab: MATIAS [address]EWARD[address] [place] [address] VITAMIN B-12 996 pg/mL 232-1245 February 09, 2021 [facility] COMPREHENSIVE METABOLIC Spec imen Type: SERUM [...] 2020 04:38 PM Reporting Lab: MATIAS CLARK [place] [address] [place] [address] Performing Lab: MATIAS CLARK [place] [address] [place] [address] GLUCOSE 502 mg/dL HH 71-109 BUN/UREA (BLOOD [...] L > 90 February 09, 2021 11:09 [facility] CBC & MORPHOLOGY (WITH Sp ecimen Type: BLOOD AM DIFF) No comment enter ed. Ordering Provid er: CHARISSE GARCIA Report Released Date/Time: Nov 07, 2020 04:38 PM Reporting Lab: MATIAS STEWARD[address] [place] [address] Performing Lab: MATIAS STEWARD[address] [place] [address] WBC (TOTAL WBC COUNT) 10.1 K/L 3.0-10. [...] ABSOLUTE 0.02 K/L 0-0.07 February 09, 2021 [facility] THYROID STIMULATING Specimen Type: SERUM 11:09 [...] CONFIRMED BY REPEAT TESTING. CALLED TO HELIO GARCIA@6017 02-10-21/NS READ BACK OF CRITICAL VALUES OCCURRED FOR CONFIRMATION. CRITICAL RESULT KNOWN/REPORTED [id number] 02/10/21 Ordering Provid er: CHARISSE GARCIA Report Released Date/Time: Nov 07, 2020 04:38 PM Reporting Lab: MATI[facility] CLARK [place] [address] [place] [address] Performing Lab: MATIAS Perera [address] [place] [address] THYROID STIMULATING HORMONE 2.02 IU/mL 0.300-4.25 February 09, 2021 11:09 AM [facility] LIPID PANEL Specim en Type: SERUM [...] CONFIRMED BY REPEAT TESTING. CALLED TO HELIO GARCIA@5823 02-10-21/NS READ BACK OF CRITICAL VALUES OCCURRED FOR CONFIRMATION. CRITICAL RESULT KNOWN/REPORTED [id number] 02/10/21 Ordering Provid er: CHARISSE GARCIA Report Released Date/Time: Nov 07, 2020 04:38 PM Reporting Lab: MATIAS Perera [address] [place] [address] Performing Lab: MATIAS Perera [address] [place] [address] CHOLESTEROL 246 mg/dL H <199 TRIGLYCERIDE 909 mg/dL H <149 HDL CHOLESTEROL 28 mg/dL L >40 NON-HDL CHOLESTEROL 218 mg/dL <130 LDL, DIRECT 86 mg/dL 0-129 February 09, 2021 11:09 AM [facility] URINALYSIS (IRIS) Spec imen Type: URINE No comment enter ed. Ordering Provid er: CHARISSE GARCIA Report Released Date/Time: Nov 07, 2020 04:38 PM Reporting Lab: MATIAS Perera [address] [place] [address] Performing Lab: MATIAS Perera [address] [place] [address] URINE COLOR Light-Yellow SPECIFIC GRAVITY 1.032 H [...] < 2 February 09, 2021 11:09 AM [facility] HEMOGLOBIN A1C Specim en Type: BLOOD [...] 2020 04:38 PM Reporting Lab: MATIAS CLARK [place] [address] [place] [address] Performing Lab: MATIAS CLARK [place] [address] [place] [address] HEMOGLOBIN A1C 14.4 % H 0-5.6 Social [...] Comment Facility Feb 23, 2021 02:00 PM [place]-TOBACCO FORMER USER [facility] Tobacco Use History This section includes a history of the smoking, or tobacco- related health factors, that were collected on or before the date of the Encounter. The data comes from the [place] facility where the Encounter took place. Date/Time Smoking Status/Tobacco Use Comment Aliya davis Feb 23, 2021 02:00 PM [place]-TOBACCO QUIT < 1 YEAR [facility] Jul 25, 2019 01:50 PM VA-TOBACCO DOESNT USE WI [facility] 30 MIN WAKEUP Jul 25, 2019 01:50 PM VA-TOBACCO USE > 15 LESS [facility] THAN 30 YEARS Jul 25, 2019 01:50 PM VA-TOBACCO USE ADVICE [facility] Jul 25, 2019 01:50 PM VA-TOBACCO USE TOE SEWER NO [facility] Jul 25, 2019 01:50 PM VA-TOBACCO USE MED NOTIFY [facility] PROVIDER Jul 25, 2019 01:50 PM VA-TOBACCO USER EVERY DAY [facility] Jul 09, 2018 03:00 PM VA-TOBACCO USE > 15 LESS [facility] THAN 30 YEARS Jul 09, 2018 03:00 PM VA-TOBACCO USE ADVICE [facility] Jul 09, 2018 03:00 PM VA-TOBACCO USE TOE SEWER NO [facility] Jul 09, 2018 03:00 PM VA-TOBACCO USE MED NO [facility] Jul 09, 2018 03:00 PM VA-TOBACCO USE WI 30 MIN [facility] Jul 09, 2018 03:00 PM VA-TOBACCO USER EVERY DAY [facility] Jan 10, 2018 12:55 PM TOBACCO MEDICATION [place] [facility] INTERVENTION Sep 19, 2017 09:33 AM CURRENT TOBACCO USER [facility] Sep 19, 2017 09:33 AM TOBACCO SCREEN COMPLETED [facility] No, not willing to quit now Aug 12, 2016 01:53 PM CURRENT TOBACCO USER [facility] Aug 12, 2016 01:53 PM TOBACCO MEDICATION [place] [facility] [place] [facility] REF[facility] Dilma CADET Aug 12, 2016 01:53 PM TOBACCO SCREEN COMPLETED [facility] Yes, willing to quit now May 30, 2013 11:04 AM LIFETIME NON-USER OF [facility] TOBACCO Feb 22, 2012 09:19 AM CURRENT TOBACCO USER [facility] Feb 22, 2012 09:19 AM TOBACCO SCREEN COMPLETED [facility] No, not willing to quit now Mar 07, 2011 11:32 AM TOBACCO MEDICATION [facility] [place] [facility] Feb 25, 2011 10:38 AM CURRENT TOBACCO USER Severity= MINIMAL ANA PAULA MORENO [facility] Feb 25, 2011 10:38 AM TOBACCO MEDICATION Severity= MINIMAL BRIT PEREZ [facility] REFERRAL DR HALEY Feb 25, 2011 10:38 AM TOBACCO SCREEN COMPLETED Severity= MINIMA Ana [facility] Yes, willing to quit now Sep 27, 2010 11:38 AM TOBACCO MEDICATION [facility] Sep 27, 2010 11:38 AM TOBACCO MEDICATION ORDERED [facility] Jan 04, 2010 10:28 AM CURRENT TOBACCO USER [facility] Jan 04, 2010 10:28 AM TOBACCO MEDICATION [facility] INTERVENTION Jan 04, 2010 10:28 AM TOBACCO MEDICATION ORDERED [facility] Jan 04, 2010 10:28 AM TOBACCO MEDICATION [facility] REFERRAL DR. CANELA Encounter Notes: All associated encounter notes This section contains the clinical notes associated to the Encounter. Date/Time Encounter Note(s) Provider Source Mar 12, 2021 03:10 PM TEAM TELEPHONE ENCOUNTER NOTE: VERÓNICA FISH [facility] LOCAL TITLE: CARE MANAGEMENT TELEPHONE NOTE STANDARD TITLE: TEAM TELEPHONE ENCOUNTER NOTE DATE OF NOTE: MAR 12, 2021@15:10 ENTRY DATE: MAR 12, 2021@15:10:14 AUTHOR: VERÓNICA FISH EXP COSIGNER: URGENCY: STATUS: COMPLETED SPOKE WITH VET STATES HAS NOT RECIEVED H ER ABX YET. ADVISED WOULD GIVE MESSAGE TO CHARISSE GARCIA FOR URGENT ACTION VET APPRECIATIVE /elina/ VERÓNICA FISH RN Signed: 03/12/2021 15:11
--- OUTSIDE RECORDS SUMMARY | 2021-09-20 19:14 | External Medical Summary | Encounter Summary ---
:1980 Author Organization Department [facility] Address [address] [place] [id number] Care Team Providers Name Role Phone CHARISSE BERMAN Primary Care Provider Unavailable Selected Encounter This section includes the information on record at [place] for the Encounter. Date/Time Encounter Type Encounter Reason Provider Source Description Feb 23, 2021 OFFICE O/P EST PRIMARY ICD-10-CM E11.8 CHARISSE BERMAN 02:00 PM MOD 30-39 MIN CARE/MEDICINE Type 2 diabetes E mellitus with unspecified complications with Provider Comments: Diabetes mellitus ([facility] [id number]) IHE Encounter Template Text not used by AR Assessments - Encounter Diagnoses This section includes the primary and secondary diagnoses documented for the Encounter. Date/Time Primary/Secondary Diagnosis Name Provider Source Diagnosis Feb 27, 2021 PRIMARY Type 2 diabetes CHARISSE BERMAN V A 12:11 PM mellitus with CLINIC unspecified complications Feb 27, 2021 SECONDARY Cracked tooth CHARISSE BERMAN [place] 12:11 PM CLINIC Feb 27, 2021 SECONDARY Hyperlipidemia, CHARISSE BERMAN V A 12:11 PM unspecified CLINIC Feb 27, 2021 SECONDARY Other specified CHARISSE BERMAN V A 12:11 PM dyspareunia CLINIC Feb 27, 2021 SECONDARY Type 2 diabetes CHARISSE BERMAN V A 12:11 PM mellitus with CLINIC hyperglycemia Feb 27, 2021 SECONDARY Vitamin deficiency, CHARISSE BERMAN ON [place] 12:11 PM unspecified CLINIC Plan of Treatment: Future Appointments (+ 6 months) and Future Tests (+/- 45 days) The Plan of Treatment section includes future care activities for the [facility] This section includes future appointments and future orders which are active, pending orscheduled.Future Appointments This section includes appointments that were scheduled to occur 6 months from the date of the Encounter, up to a maximum of 20 appointments. The data comes from all [place] treatment facilities. Appointment Date/Time Appointment Type Appointment Facili ty Name Mar 05, 2021 10:30 AM AMBULATORY - MEDICINE [facility] Mar 10, 2021 09:30 AM AMBULATORY - PSYCHIATRY [facility] Mar 10, 2021 10:00 AM AMBULATORY - MEDICINE [facility] Mar 16, 2021 11:00 AM AMBULATORY - MEDICINE [facility] Mar 24, 2021 09:30 AM AMBULATORY - PS[facility]CHIATRY [facility] [place] Apr 22, 2021 03:15 PM AMBULATORY - MEDICINE [facility] Apr 23, 2021 02:30 PM AMBULATORY - MEDICINE [facility] Apr 27, 2021 07:30 AM [facility]RY [facility] Apr 29, 2021 02:00 PM AMBULATORY - MEDICINE [facility] Apr 29, 2021 02:30 PM AMBULATORY [...] 08:00 AM AMBULATORY - NONE [facility] Jul 07, 2021 07:00 AM AMBULATORY - NONE [facility] Jul 15, 2021 03:00 PM AMBULATORY - MEDICINE [facility] Jul 26, 2021 09:00 AM AMBULATORY - MEDICINE [facility] Aug 04, 2021 01:00 PM AMBULATORY - MEDICINE [facility] Aug 05, 2021 01:20 PM AMBULATORY - MEDICINE [facility] Active, Pending, and Scheduled Orders This section includes a listing of several types of active, pending, and scheduled orders, including clinic medications orders, diagnostic test orders, procedure orders and consult orders; where the start date of the order is 45 days before the date of the Encounter or 45 days after the date of the Encounter. The data comes from all [place] treatment facilities. Test Date/Time Test Type Test Details Facility Name Feb 16, 2021 03:11 PM Consult Order [facility] Cons Operating Room Aide's Choice Mar 23, 2021 08:57 AM Consult Order [facility] Cons Operating Room Aide's Choice Lab Results: +/- 30 days of the encounter This section includes the Chemistry and Hematology Lab Results on record with AR for the patient. Radiology Reports and Pathology Reports are provided separately, in subsequent sections.Lab Results This section contains the Chemistry/Hematology Results that were resulted 30 days before or 30 daysafter the date of the Encounter. Date/Time Source Result Type Result - Unit Interpretation Reference Range Comment February 09, 2021 [facility] VITAMIN D (25-HYDROXY) Speci men Type: SERUM [...] CONFIRMED BY REPEAT TESTING. CALLED TO HELIO BERMAN@3914 02-10-21/NS READ BACK OF CRITICAL VALUES OCCURRED FOR CONFIRMATION. CRITICAL RESULT KNOWN/REPORTED [id number] 02/10/21 Ordering Provid er: CHARISSE BERMAN Report Released Date/Time: Nov 07, 2020 04:38 PM Reporting Lab: [facility] [place] [address] [address] [place] [address] Performing Lab: [facility] [place] [address] [address] [place] [address] VITAMIN D (25-HYDROXY) 24.2 ng/mL L 30.0-1 00 February 09, 2021 11:09 AM [facility] MAGNESIUM Specim en Type: SERUM Comment: High [...] CONFIRMED BY REPEAT TESTING. CALLED TO HELIO BERMAN@1323 02-10-21/NS READ BACK OF CRITICAL VALUES OCCURRED FOR CONFIRMATION. CRITICAL RESULT KNOWN/REPORTED [id number]/[id number] 02/10/21 Ordering Provid er: CHARISSE BERMAN Report Released Date/Time: Nov 07, 2020 04:38 PM Reporting Lab: [facility] [place] [address] [address] [place] [address] Performing Lab: [place] [address] [address] [address] MAGNESIUM 1.9 mg/dL 1.6-2.6 February 09, 2021 11:09 AM [facility] VITAMIN B-12 Specim en Type: SERUM Comment: High d oses of Biotin supplements (>5 mg/day) may falsely increase Vitamin B-12, Vitamin D (25OH), Free T4, and Folate results. Test specimens should be collected at least 8 hrs after last ingestion of high dose biotin. Ordering Provid er: CHARISSE BERMAN Report Released Date/Time: Nov 07, 2020 04:38 PM Reporting Lab: [facility] [place] [address] [address] [place] [address] Performing Lab: [facility] [place] [address] [address] [place] [address] VITAMIN B-12 996 pg/mL 232-1245 February 09, 2021 [facility] COMPREHENSIVE METABOLIC Spec imen Type: SERUM 11:09 [...] CONFIRMED BY REPEAT TESTING. CALLED TO HELIO BERMAN@3253 02-10-21/ALBERTO READ BACK OF CRITICAL VALUES OCCURRED FOR CONFIRMATION. CRITICAL RESULT KNOWN/REPORTED [id number] 02/10/21 Ordering Provid er: CHARISSE BERMAN Report Released Date/Time: Nov 07, 2020 04:38 PM Reporting Lab: [facility] [address] [place] [address] Performing Lab: [facility] [address] [place] [address] GLUCOSE 502 mg/dL HH 71-109 BUN/UREA (BLOOD [...] L > 90 February 09, 2021 11:09 [facility] CBC & MORPHOLOGY (WITH Sp ecimen Type: BLOOD AM DIFF) No comment enter ed. Ordering Provid er: CHARISSE BERMAN Report Released Date/Time: Nov 07, 2020 04:38 PM Reporting Lab: [place] [address] [place] [address] Performing Lab: [facility] [place] [address] [place] [address] WBC (TOTAL WBC COUNT) 10.1 K/L 3.0-10. [...] ABSOLUTE 0.02 K/L 0-0.07 February 09, 2021 [facility] THYROID STIMULATING Specimen Type: SERUM 11:09 AM [...] CONFIRMED BY REPEAT TESTING. CALLED TO HELIO BERMAN@9923 02-10-21/NS READ BACK OF CRITICAL VALUES OCCURRED FOR CONFIRMATION. CRITICAL RESULT KNOWN/REPORTED [id number] 02/10/21 Ordering Provid er: CHARISSE BERMAN Report Released Date/Time: Nov 07, 2020 04:38 PM Reporting Lab: [place] [address] [place] [address] Performing Lab: [facility] STEWARD[address] [place] [address] THYROID STIMULATING HORMONE 2.02 IU/mL 0.300-4.25 February 09, 2021 11:09 AM [facility] LIPID PANEL Specim en Type: SERUM Comment: [...] CONFIRMED BY REPEAT TESTING. CALLED TO HELIO BERMAN@2703 02-10-21/ALBERTO READ BACK OF CRITICAL VALUES OCCURRED FOR CONFIRMATION. CRITICAL RESULT KNOWN/REPORTED [id number] 02/10/21 Ordering Provid er: CHARISSE BERMAN Report Released Date/Time: Nov 07, 2020 04:38 PM Reporting Lab: [facility] STEWARD[address] [place] [address] Performing Lab: [facility] Perera [address] [place] [address] CHOLESTEROL 246 mg/dL H <199 TRIGLYCERIDE 909 mg/dL H <149 HDL CHOLESTEROL 28 mg/dL L >40 NON-HDL CHOLESTEROL 218 mg/dL <130 LDL, DIRECT 86 mg/dL 0-129 February 09, 2021 11:09 AM [facility] URINALYSIS (IRIS) Spec imen Type: URINE No comment enter ed. Ordering Provid er: CHARISSE BERMAN Report Released Date/Time: Nov 07, 2020 04:38 PM Reporting Lab: [facility] [address] [address] Performing Lab: [facility] Perera [address] [address] URINE COLOR Light-Yellow SPECIFIC GRAVITY 1.032 H [...] < 2 February 09, 2021 11:09 AM [facility] HEMOGLOBIN A1C Specim en Type: BLOOD Comment: [...] their healthcare provider. Ordering Provid er: CHARISSE BERMAN Report Released Date/Time: Nov 07, 2020 04:38 PM Reporting Lab: [facility] Perera [address] [place] [address] Performing Lab: [facility] Perera [address] [place] [address] HEMOGLOBIN A1C 14.4 % H 0-5.6 Vital Signs: All taken on the encounter date This section contains inpatient and outpatient Vital Signs collected on the date of the Encounter. Date/Time Temperature Pulse Blood Respiratory SP02 Pain Height Weight Jonny dy Source Pressure Rate Mass Index Feb 23, 66 in 224 lb 36 2020 02:04 N [facility] Feb 23, 97.3 F 75 96/61 20 /min 96 % 7 224 lb 36 PASCAGOU[place]2020 01:54 /min mm[Hg] N [facility] Social History: Smoking Status (Most current) and Tobacco Use (All prior to encounter date) This section includes the most current, and the historical, smoking and tobacco-related health factors from the AR facility where the Encounter took place.Current Smoking Status This section includes the most current smoking, or tobacco-related health factor, from the AR facility where the Encounter took place. Date/Time Current Smoking Status Comment Facility Feb 23, 2021 02:00 PM VA-TOBACCO FORMER USER [facility] Tobacco Use History This section includes a history of the smoking, or tobacco- related health factors, that were collected on or before the date of the Encounter. The data comes from the AR facility where the Encounter took place. Date/Time Smoking Status/Tobacco Use Comment [facility] Feb 23, 2021 02:00 PM VA-TOBACCO QUIT < 1 YEAR [facility] Jul 25, 2019 01:50 PM VA-TOBACCO DOESNT USE WI [facility] 30 MIN WAKEUP Jul 25, 2019 01:50 PM VA-TOBACCO USE > 15 LESS [facility] THAN 30 YEARS Jul 25, 2019 01:50 PM VA-TOBACCO USE ADVICE [facility] Jul 25, 2019 01:50 PM VA-TOBACCO USE JEWELRY BEARING MAKER NO [facility] Jul 25, 2019 01:50 PM VA-TOBACCO USE MED NOTIFY [facility] PROVIDER Jul 25, 2019 01:50 PM VA-TOBACCO USER EVERY DAY [facility] Jul 09, 2018 03:00 PM VA-TOBACCO USE > 15 LESS [facility] THAN 30 YEARS Jul 09, 2018 03:00 PM VA-TOBACCO USE ADVICE [facility] Jul 09, 2018 03:00 PM VA-TOBACCO USE JEWELRY BEARING MAKER NO [facility] Jul 09, 2018 03:00 PM VA-TOBACCO USE MED NO [facility] Jul 09, 2018 03:00 PM VA-TOBACCO USE WI 30 MIN [facility] Jul 09, 2018 03:00 PM VA-TOBACCO USER EVERY DAY [facility] Jan 10, 2018 12:55 PM TOBACCO MEDICATION MARIA ELENA Juarez [facility] INTERVENTION Sep 19, 2017 09:33 AM CURRENT TOBACCO USER [facility] Sep 19, 2017 09:33 AM TOBACCO SCREEN COMPLETED [facility] No, not willing to quit now Aug 12, 2016 01:53 PM CURRENT TOBACCO USER [facility] Aug 12, 2016 01:53 PM TOBACCO MEDICATION [place] [facility] REFERRAL Dilma CADET Aug 12, 2016 01:53 PM TOBACCO SCREEN COMPLETED [facility] Yes, willing to quit now May 30, 2013 11:04 AM LIFETIME NON-USER OF [facility] TOBACCO Feb 22, 2012 09:19 AM CURRENT TOBACCO USER [facility] Feb 22, 2012 09:19 AM TOBACCO SCREEN COMPLETED [facility] No, not willing to quit now Mar 07, 2011 11:32 AM TOBACCO MEDICATION [place] [facility] Feb 25, 2011 10:38 AM CURRENT TOBACCO USER Severity= MINIMAL ANA PAULA MORENO [facility] Feb 25, 2011 10:38 AM TOBACCO MEDICATION Severity= MINIMAL BRIT PERE[facility] REFERRAL DR HALEY Feb 25, 2011 10:38 AM TOBACCO SCREEN COMPLETED Severity= MINIMA L [facility] Yes, willing to quit now Sep 27, 2010 11:38 AM TOBACCO MEDICATION [facility] N [facility] Sep 27, 2010 11:38 AM TOBACCO MEDICATION ORDERED [facility] Jan 04, 2010 10:28 AM CURRENT TOBACCO USER [facility] Jan 04, 2010 10:28 AM TOBACCO MEDICATION [facility] INTERVENTION Jan 04, 2010 10:28 AM TOBACCO MEDICATION ORDERED [facility] Jan 04, 2010 10:28 AM TOBACCO MEDICATION [facility] REFERRAL DR. CANELA Encounter Notes: All associated encounter notes This section contains the clinical notes associated to the Encounter. Date/Time Encounter Note(s) Provider Source Feb 23, 2021 03:13 ADMINISTRATIVE NOTE: [facility] LOCAL TITLE: AFTER VISIT SUMMARY STANDARD TITLE: ADMINISTRATIVE NOTE DATE OF NOTE: FEB 23, 2021@15:13:55 ENTRY DATE: FEB 23, 2021@15:13:55 AUTHOR: CHARISSE BERMAN EXP COSIGNER: URGENCY: STATUS: COMPLETED The patient was provided with a copy of an after -visit summary at the conclusion of the visit. The after-visit summary includes information per taining to the patient's encounter, including diagnoses, vital signs, med ications, and new orders, as well as a list of any any upcoming appointmen ts and information regarding the patient's ongoing care. The patient's medications were reviewed with the patient by the provider and were provided to the patient as an updated l ist of medications. The patient was instructed to inform the provider of any medication changes or discrepancies that were noted. Otherwise, the patient was instructed to continue the medications as prescribed. A copy of the after-visit summary provided to e patient is available in [employer]. SCANNED DOCUMENT SIGNATURE NOT REQUIRED Electronically Filed: 02/23/2021 by: Charisse Berman PHYSICIST [employer] Nurse Practitioner Feb 23, 2021 02:37 PRIMARY CARE E & M [facility]: PRIMARY CARE PROVIDER NOTE STANDARD TITLE: PRIMARY CARE E & M NOTE DATE OF NOTE: FEB 23, 2021@14:37 ENTRY DATE: FEB 23, 2021@14:37:35 AUTHOR: CHARISSE BERMAN EXP COSIGNER: URGENCY: STATUS: COMPLETED PRIMARY CARE PROVIDER NOTE Has ADDENDA FEB 23, 2021 Patient identification is confirmed by full name , date of and social security number prior to interview and examinati on. Hand washing is completed prior to interview and examination CC/HPI SUBJECTIVE: is a 40 year old FEMALE who presents with Here for F/U DM A1c 14.2 dizzyness, poor communicaiton when elev ated, restarted insulin now improved BS 200s now Saw Pharm Insulin 70/30 and novolog 15U noon REVIEW OF SYSTEMS Constitutional: Denies: Fever, unexplained weight loss, chills, swollen gland, fatigue, weakness, or trouble sleeping. Eyes: Denies: Eye drainage, redness, pain, flashing l ights, specks or vision change Ears/Nose/Mouth/Throat: Denies: Hearing loss, tinnitus, ear drainage or pain, nasal bleeding, congestion,sinus pressure or discharge, mouth dr yness, ulcers,or sore throat. C/O: right lower second to last lower filling cracked pain swelling right face and cheondoism and sinus and headache. Feels like ey e pushed out of socket Cardiovascular: Denies: Chest pain, dyspnea, orthopnea, paroxys mal nocturnal dyspnea, palpitations, syncope, dizziness, or edema. C/O: gained wt with insulin Respiratory: Denies: shortness of breath, cough, hemoptysis, sputum production, painful breathing or wheezing. Gastrointestinal: Denies: Abdominal pain, nausea, vomiting, dysph agia, heartburn, diarrhea, constipation, changes in bowel habits, melena, o r hematochezia Genitourinary: Denies: Burning, frequency, hesitency, urgency, incontinence, or blood in urine. Musculoskeletal: C/O: chronic low back pain, 7/10. and jaw pain right lower second to last broke off. student drilled tooth Skin: Denies: Rash, bruising, itching, dryness, new o r changing moles, lesions or hair or nail changes. Neurologic: Denies: Headache, dizziness, seizures, syncope, numbness, tremors or tingling. Psychiatric: Denies: Depression, nervousness, stress, memory loss, SI/HI or mood swings Endocrine: Denies: Temperature intolerance, polyuria, poly dipsia, polyphagia, excessive sweating, or changes in hair or nails Hematologic: Denies: Bleeding, bruising, lymphadenopathy. Reproductive: pain with intercoure at entrance o f vaginal assistant terminal manager lubricant not effective Active Problem Degeneration of lumbar intervertebr 05/09/2020 CHARISSE JIMENEZ Right hip pain M25.551 03/12/2020 CHARISSE BERMAN Major depression F33.1 10/24/2019 MECCA SANTIAGO Ca cervix - screening done R69., On 07/28/2019 CHARISSE JIMENEZ Pseudotumor cerebri R69., Onset 02/09/2019 CHARISSE JIMENEZ Anaphylaxis due to ingested food R6 06/03/2018 CHARISSE JIMENEZ Acute otitis media H66.91 10/05/2017 TERE BERMAN Sprain of right ankle S93.491A 06/13/2017 CHARISSE BERMAN Knee injury S80.911S 06/17/2017 CHARISSE BERMAN Pain in right knee M25.561 05/09/2017 MARY BERMAN Ankle joint pain R69., Onset 08/15/ 08/21/2016 CHARISSE JIMENEZ Acute sinusitis J01.80 08/12/2016 CHARISSE BERMAN Nicotine dependence Z72.0 08/01/2016 MYRTLE MARLOW Pain in pelvis R10.2 05/17/2016 CHARISSE BERMAN Female pelvic inflammatory disease 05/02/2016 CHARISSE DICKSON HPV - Human papillomavirus test pos 04/28/2016 CHARISSE JIMENEZ Chronic sinusitis J32.9 04/28/2016 CHARISSE BERMAN Allergic rhinitis J30.89 04/28/2016 CHARISSE BERMAN Migraine R69., Onset 01/14/2016 01/24/2016 CHARISSE BERMAN Viral meningitis R69., Onset 01/13/ 01/24/2016 S MARY MAURICEON Favian Acute sinusitis J01.90 10/13/2015 CHARISSE BERMAN DM - Diabetes mellitus E11.65 10/13/2015 RADHAMarlenON Favian Hyperlipidemia 272.4 02/10/2015 CHARISSE BERMAN Ureteric stone 592.1, Onset 12/08/2014 S CHARISSE MAURICE Hypertriglyceridemia 272.1 07/22/2014 SHAYNE BRIGGS J Microscopic hematuria 599.72 07/22/2014 Scot BRIGGS J Borderline personality disorder (SN 03/14/2018 L ADIEL WILKINS Sprain of metacarpophalangeal joint 01/27/2014 MARY JIMENEZON Favian Menorrhagia (SNOMED CT 092465502) 6 01/15/2014 S CHARISSE MAURICE Influenza 799.9, Onset 09/29/2013 11/16/2013 [facility] MARY ESCOBEDOTYLER Ballesteros Contraception (SNOMED CT 31310082) 10/17/2013 SM CAMILOCHARISSE Ballesteros Recurrent major depression (SNOMED 03/14/2018 LE ADIEL VALDOVINOS Benign intracranial hypertension (S 10/03/2019 S YOLANDAJenniferCHARISSE Ballesteros Papilledema associated with increas 03/30/2009 C BRIDGET OLIVA Neck Pain (ICD-9-CM 723.1) 723.1 09/27/2010 BASIL ASKEW Diabetes mellitus (SNOMED CT 853850 04/24/2018 S MARY MAURICETYLER Ballesteros Low back pain (SNOMED CT 577561090) 01/11/2019 Angi GUERREROJenniferMARYCHARISSE E Knee: arthralgia 719.46 09/27/2010 NITA CLEMENTS Migraine, unspecified, without ment 01/07/2009 DEISI HAINES Social History: Marital Status: Sexual Partners: Sexual Preference: ETOH:No Type & Frequency: Quit: Tobacco:No Type & Amount: Quit: OBJECTIVE: CURRENT VITAL: Temperature: 97.3 F [36.3 C] (02/23/2021 13:54) Respirations: 20 (02/23/2021 13:54) Pulse: 75 (02/23/2021 13:54) Blood Pressure: 96/61 (02/23/2021 13:54) Weight: 224 lb [101.8 kg] (02/23/2021 14:04) Height: 66 in [167.6 cm] (02/23/2021 14:04) BMI: BMI: 36 SAO2: 96% DATE: Feb@13:55:08 Pain: 7 (02/23/2021 13:54) GENERAL: Alert & oriented x 3, Well-developed, well-nour ished, and in no acute distress. HEENT: right lower second to last filling broken stud only in place cap missing with decay and tooth exposed. pain right side fa ce NECK: RESPIRATORY: Clear to auscultation bilaterally. Normal respi ratory effort. No rales, rhonchi or wheezing. HEART: ABDOMEN: Bowel sounds normal. No masses, organomegaly, g uarding or rigidity. Soft, non-tender, non-distended. No hernia. Negative for abdominal bruit. EXTREMITIES: No edema, clubbing, cyanosis, ulcers, varicosities, or atrophy. Palpable pulses. MUSCOLOSKELETAL Lower Extremity: NEURO: Cranial nerves II-XII grossly intact. Strength equal and adequate bilaterally. Sensation to light touch intact. G ait normal. Deep tendon reflexes bilaterally symmetrical. PSYCH: Oriented to person, place, and time. Mood & aff ect normal. Recent and remote memory normal, judgment normal. SKIN: No rashes or suspicious lesions, induration, pet echiae, or nodules. Normal turgor. Skin is warm to touch. RECTAL: No external anal lesions. Sphincter tone normal . Stool brown and negative for occult blood. reporductive pain with intercourse US in past Sa ra Randolph nothing found Labs were reviewed and pertinent to today's visi t: CMP: Collection DT Spec GLUC BUN CREAT,S NA K CL CO2 a 02/09/2021 11:09 SERUM 502 H* 21 0.9 133 4.2 1 05 22 Collection DT Spec CALC PROT,T ALB GLOB AST ALT ALP a 02/09/2021 11:09 SERUM 9.8 7.1 4.7 2.4 15 23 1 34 H Collection DT Spec TBIL eGFR a 02/09/2021 11:09 SERUM 0.4 >60 COMMENTS: A1c: Collection DT Spec A1C a 02/09/2021 11:09 BLOOD 14.4 H COMMENTS: TSH: 2.02 (02/09/21 11:09) Lipid Panel: Collection DT Spec CHOL TRIG HDL LDLcalc zCHL/HD AST a 02/09/2021 11:09 SERUM 246 H 909 H 28 L 15 MEDICATION RECONCILIATION: Active Outpatient Medications (including Supplie s): Active Outpatient Medications Status 1) ACCU-CHEK GUIDE (GLUCOSE) TEST STRIP USE ONE STRIP ACTIVE THREE TIMES A DAY NEEDED FOR BLOOD GLUCOSE TESTING 2) ATORVASTATIN CALCIUM 20MG TAB TAKE ONE TABLET BY ACTIVE MOUTH EVERY DAY FOR CHOLESTEROL 3) CHOLECALCIF 50MCG (D3-2,000UNIT) TAB TAKE ONE TABLET ACTIVE BY MOUTH EVERY DAY FOR VITAMIN D SUPPLEMENT 4) CODEINE 60MG/ACETAMINOPHEN 300MG TAB TAKE 2 [...] CAP TAKE FOUR CAPSULES BY MOUTH ACTIVE (S) EVERY MORNING FOR DEPRESSION/MOOD 9) GABAPENTIN 300MG CAP TAKE TWO CAPSULES BY SAPPHIRE TH THREE ACTIVE TIMES A DAY NEEDED FOR NERVE PAIN 10) GUAIFENESIN 600MG SA TAB TAKE ONE TABLET BY MOUTH ACTIVE TWICE A DAY FOR CONGESTION 11) INSULIN,ASPART 100UN/ML CARRIE FLEXPEN 3ML INJ ECT 15 ACTIVE UNITS UNDER SKIN AT NOON FOR DIABETES . TAKE 10 MINUTES PRIOR TO YOUR LUNCH. 12) INSULIN,ASPART 70/30 NOVOLOG FLEXPEN 3ML INJ ECT 60 ACTIVE UNITS UNDER SKIN TWICE A DAY WITH MEALS OR DIRECTED BY CLINICAL PHARMACIST FOR DIABETES 13) LIDOCAINE 5% PATCH APPLY 1 PATCH TO SKIN ORLY RY DAY ACTIVE (FOR 12 HOURS ON, FOLLOWED BY 12 HOURS OFF) FOR PAIN 14) LORATADINE 10MG TAB TAKE ONE TABLET BY MOUTH EVERY ACTIVE DAY FOR ALLERGIES 15) MULTIVITAMIN, ICAPS MV TAB,EC TAKE 1 CAPSULE BY MOUTH ACTIVE EVERY MORNING FOR VITAMIN SUPPLEMENT 16) NEEDLE,PEN 31G,8MM USE NEEDLE DIRECTED ACTIVE NEEDED FOR USE WITH INSULIN PEN INJECTIONS 17) OXYBUTYNIN CHLORIDE 5MG TAB TAKE ONE TABLET BY MOUTH ACTIVE EVERY DAY FOR URINARY INCONTINENCE 18) PROPRANOLOL 40MG TAB TAKE ONE TABLET BY MOUT H EVERY ACTIVE DAY TO PREVENT MIGRAINES * NOTIFY PROVIDER IF OR MAY BECOME 19) TIZANIDINE HCL 4MG TAB TAKE 1 TO 2 TABLETS ( 4-8MG) BY ACTIVE MOUTH UP TO THREE TIMES A DAY FOR MUSCLE SPASM 20) VARENICLINE 1MG TAB TAKE ONE TABLET BY MOUTH TWICE A ACTIVE DAY FOR TOBACCO CESSATION Active Non-VA Medications Status 1) Non-VA ACETAMINOPHEN 250/ASA 250/CAFF 65MG TA B 2 ACTIVE TABLETS BY MOUTH EVERY DAY NEEDED 2) Non-VA MULTIVITAMIN W/MINERALS CAP/T AB ACTIVE NATURE MADE DAILY DIABETES HEALTH PACK BY MOUTH EVERY DAY 3) Non-VA NO NON-VA MEDICATION MISCELLANEOUS VIT APONTE C, ACTIVE E, AND BIOTIN (HAIR SKIN AND NAILS VITAMIN) EVERY DAY 23 Total Medications ALLERGIES: GLIPIZIDE, METFORMIN ASSESSMENT: Medication Reconciliation done and Med list/teac sofía document given to patient All recent labs and radiology reports were revie wed with the patient, copy of all labs provided and all questions answ ered. Patient demonstrated good understanding. Reviewed patient's life goals. Visit Diagnoses/Plan: DM F/U Pharm D Dyspareuna [place], pap smear pain with intercour se vaginal US then consult to BULLET MAKER visit Previous visit teresa Randolph 03/15/2016 was to have tubal not completed Mammo due sept Augmentin and predisone tooth decay F/U dental PVT when able CANE FLUME CHUTE OPERATOR to contact for financial assist dental Hypperlipidemia rosuvastatin 20mg stop atrovasta tin D low 4000U Follow-up visit 3 months Verónica burnette CM schedule for mammogram in 05/2021 /tammie CADET Nurse Practitioner Signed: 02/27/2021 12:13 Receipt Acknowledged By: 03/01/2021 08:53 /elina/ VERÓNICA FISH RN 03/05/2021 ADDENDUM STATUS: COMPLETED fwd to provider see above in your note did you want a security software engineer consult placed so pap reminde r can be completed? /elina/ VERÓNICA FISH RN Signed: 03/05/2021 13:11 Receipt Acknowledged By: 03/22/2021 13:14 /tammie CADET Nurse Practitioner 03/22/2021 ADDENDUM STATUS: COMPLETED vag US then will order BULLET MAKER consult /tammie CADET Nurse Practitioner Signed: 03/22/2021 13:24 03/23/2021 ADDENDUM STATUS: COMPLETED Contacted [facility] office discussed s/s recommende d offfice visit first.. Will evaluate for US during visit. US discontinued /elina/ Charisse CADET Nurse Practitioner Signed: 03/23/2021 08:49 05/19/2021 ADDENDUM STATUS: COMPLETED MSA to call to reschedule labs before upcoming a ppointment. /tammie FINN/Yoni Signed: 05/19/2021 15:48 Receipt Acknowledged By: * AWAITING SIGNATURE * JENSEN ANN Feb 23, 2021 01:55 PRIMARY CARE NURSING NOTE: SUKHDEV QUINONES [facility] LOCAL TITLE: MANAGER ASSET NURSING NOTE (T) STANDARD TITLE: PRIMARY CARE NURSING NOTE DATE OF NOTE: FEB 23, 2021@13:55 ENTRY DATE: FEB 23, 2021@13:55:50 AUTHOR: SUKHDEV QUINONES EXP COSIGNER: URGENCY: STATUS: COMPLETED Patient identification is confirmed by full name , date of and social security number prior to interview and examinati on. Hand washing is completed prior to interview and examination. Age:40 Height:66 in [167.6 cm] (10/01/2019 12:31) Weight:224 lb [101.8 kg] (02/23/2021 13:54) VITALS Temperature:97.3 F [36.3 C] (02/23/2021 13:54) BP:96/61 (02/23/2021 13:54) Pulse:75 (02/23/2021 13:54) Resp:20 (02/23/2021 13:54) SpO2:96% DATE: Feb@13:55:08; [X]On room a ir [ ]On L/min. 02 BMI:36* PAIN (scale 0-10):7 (02/23/2021 13:54) Is this pain level tolerable? Yes Pain Location:jaw, lower back CC:annual visit antibiotics for jaw/dental pain Allergies/ADR: GLIPIZIDE, METFORMIN Allergy list correct (if no, update)? Yes MEDICATION RECONCILIATION Patient taking ASA? No Medication information in the form of a Interview was obtained from the Patient and compared to the medications listed for the p atient in CPRS including: Active medications, Non-VA medications Active and Recently Outpatient Medicatio ns (excluding Supplies): Active Outpatient Medications Status 1) ACCU-CHEK GUIDE (GLUCOSE) TEST STRIP USE ONE STRIP ACTIVE THREE TIMES A DAY NEEDED FOR BLOOD GLUCOSE TESTING 2) ATORVASTATIN CALCIUM 20MG TAB TAKE ONE TABLET BY ACTIVE MOUTH EVERY DAY FOR CHOLESTEROL 3) CHOLECALCIF 50MCG (D3-2,000UNIT) TAB TAKE ONE TABLET ACTIVE BY MOUTH EVERY DAY FOR VITAMIN D SUPPLEMENT 4) CODEINE 60MG/ACETAMINOPHEN 300MG TAB TAKE 2 [...] CAP TAKE FOUR CAPSULES BY MOUTH ACTIVE (S) EVERY MORNING FOR DEPRESSION/MOOD 9) GABAPENTIN 300MG CAP TAKE TWO CAPSULES BY SAPPHIRE TH THREE ACTIVE TIMES A DAY NEEDED FOR NERVE PAIN 10) GUAIFENESIN 600MG SA TAB TAKE ONE TABLET BY MOUTH ACTIVE TWICE A DAY FOR CONGESTION 11) INSULIN,ASPART 100UN/ML CARRIE FLEXPEN 3ML INJ ECT 15 ACTIVE UNITS UNDER SKIN AT NOON FOR DIABETES . TAKE 10 MINUTES PRIOR TO YOUR LUNCH. 12) INSULIN,ASPART 70/30 NOVOLOG FLEXPEN 3ML INJ ECT 60 ACTIVE UNITS UNDER SKIN TWICE A DAY WITH MEALS OR DIRECTED BY CLINICAL PHARMACIST FOR DIABETES 13) LIDOCAINE 5% PATCH APPLY 1 PATCH TO SKIN ORLY RY DAY ACTIVE (FOR 12 HOURS ON, FOLLOWED BY 12 HOURS OFF) FOR PAIN 14) LORATADINE 10MG TAB TAKE ONE TABLET BY MOUTH EVERY ACTIVE DAY FOR ALLERGIES 15) MULTIVITAMIN, ICAPS MV TAB,EC TAKE 1 CAPSULE BY MOUTH ACTIVE EVERY MORNING FOR VITAMIN SUPPLEMENT 16) OXYBUTYNIN CHLORIDE 5MG TAB TAKE ONE TABLET BY MOUTH ACTIVE EVERY DAY FOR URINARY INCONTINENCE 17) PROPRANOLOL 40MG TAB TAKE ONE TABLET BY MOUT H EVERY ACTIVE DAY TO PREVENT MIGRAINES * NOTIFY PROVIDER IF OR MAY BECOME 18) TIZANIDINE HCL 4MG TAB TAKE 1 TO 2 TABLETS ( 4-8MG) BY ACTIVE MOUTH UP TO THREE TIMES A DAY FOR MUSCLE SPASM 19) VARENICLINE 1MG TAB TAKE ONE TABLET BY MOUTH TWICE A ACTIVE DAY FOR TOBACCO CESSATION Inactive Outpatient Medications Status 1) FLUCONAZOLE 150MG TAB TAKE ONE TABLET BY MOUT H EVERY 72 HOURS NEEDED FOR YEAST INFECTION. INCREAS E YOGURT OR ACIDOPHYLIS/PROBIOTIC USE Active Non-VA Medications Status 1) Non-VA ACETAMINOPHEN 250/ASA 250/CAFF 65MG TA B 2 ACTIVE TABLETS BY MOUTH EVERY DAY NEEDED 2) Non-VA MULTIVITAMIN W/MINERALS CAP/T AB ACTIVE NATURE MADE DAILY DIABETES HEALTH PACK BY MOUTH EVERY DAY 3) Non-VA NO NON-VA MEDICATION MISCELLANEOUS VIT APONTE C, ACTIVE E, AND BIOTIN (HAIR SKIN AND NAILS VITAMIN) EVERY DAY 23 Total Medications No Active Remote Medications for this patient IDENTIFIED MEDICATION DISCREPANCIES INCLUDED AND PROVIDER NOTIFIED: Non-VA medication discrepancies to include OTC medications,herbals and nutritional supplements are noted below: not ta amanda oxybutynin/varenicline/fluconazole Clinical Reminders Done Today COVID-19 Immunization: See orders Advance Directive Education: Patient does not have advance directive. Forms given and instructed to fill out and return. Alcohol Use Screen (AUDIT-C): Alcohol Screen: SCREEN FOR ALCOHOL (AUDIT-C) An alcohol screening test (AUDIT-C) was negativ e (score=1). 1. How often did you have a drink containing al cohol in the past year? Monthly or less 2. How many drinks containing alcohol did you h ave on a typical day when you were drinking in the past year? Zero drinks 3. How often did you have 4 or more drinks on o ne occasion in the past year? Never BMI > 30 or > 24.99 in High Risk: At this visit, the health risks of obesity were reviewed and discussed with the patient, and the benefits of a weight manag ement treatment program, such as MOVE! was discussed and offered to the patient. Height: Height: 66 in [167.6 cm) Weight: Weight: 224 lb (101.8 kg) Patient refuses referral. After discussing the health risks of obesity and offering a referral to [facility] or another [facility] l [facility] program outside the [facility], the patient REFUSES REFERRAL to M[facility] or other w eight loss program at this time. Healthy Living Discussion: Importance of healthy living for better health, especially being physically active and eating wisely, was communicated to t he [place]. Not interested in any topic at this time. Veter an informed that these topics can be discussed at any time. Influenza Immunization: No influenza vaccination was received during recent influenza season. Learning Assessment: Ability to Learn: Patient verbalizes not interested in learning a t this time. Learning Preferences/Potential Barriers: Patient is able to use the internet for learnin g/information. Are you registered for My [employer] ([employer])? Yes - Do you have an upgraded account which giv es you the added benefit of Secure Messaging with your Primary Care Prov ider? Yes - Done Degree of Understanding: [place]/caregiver verbalized understanding of i nformation given. Primary Language and Language Preference: [place] Mammogram Screening: Patient has chosen to begin mammogram screening at age 45. /Intentions/Contraception: The patient is medically able to conceive. The patient states that she is not . The patient states that she does not want to be come within the next year. The patient states that her sexual partner uses a male condom to prevent . Relationship Health & Safety Screen: RELATIONSHIP HEALTH & SAFETY SCREEN ENVIRONMENTAL SAFETY CHECK: Environment is safe to proceed INFORMED CONSENT TO SCREEN & DOCUMENT: Individual consents to documentation? Yes Individual consents to proceed with screening? Yes PRIMARY SCREEN: In the past 12 months, how often did a current or former intimate partner (e.g., boyfriend, girlfriend, , , se xual partner): Scream or curse at you: Sometimes Insult or talk down to you: Often Threaten you with harm: Never Physically hurt you: Rarely In the past 12 months, how often did a current or former intimate partner force or pressure you to have sexual co ntact against your will, or when you were unable to say no? Rarely PRIMARY SCREEN RESULTS: The individual endorsed at least one form of IP V (i.e., endorsed at least one of the 5 items above). SECONDARY SCREEN (Risk Assessment - 3 Questions ): Has the IPV behavior increased in frequency/sev erity in the past 6 months? No Has your partner ever choked or strangled you? No Do you believe your partner may kill you? No SECONDARY SCREEN RESULTS: Secondary Risk Screen is negative (i.e., answer ed "no" to all 3 items above) The HITS tool is US copyright protected by Yehuda Mora MD, and the user has full rights to use it throughout the [employer] system. DISPOSITION: Provided general IPV education. Suicide Screen: C-SSRS Screening [place]-Suicide Severity Rating Scale (C-SSRS Screener) 1. Over the past month, have you wished you wer e or wished you could go to sleep and not wake up? Yes 2. Over the past month, have you had any actual thoughts of killing yourself? Yes 3. Over the past month, have you been thinking about how you might do this? No 4. Over the past month, have you had these thou ghts and had some intention of acting on them? No 5. Over the past month, have you started to wor k out or worked out the details of how to kill yourself? No 6. If yes, at any time in the past month did yo u intend to carry out this plan? Response not required due to responses to other questions. 7. In your lifetime, have you ever done anythin g, started to do anything, or prepared to do anything to end you r life (for example, collected pills, obtained a gun, gave away valu santhosh, went to the roof but didn't jump)? Yes 8. If YES, was this within the past 3 months? No Tobacco Use Screening: The patient is a former tobacco user. The patient quit less than one year ago. Travel and Symptom Screen: The patient indicated [...] chickenpox, or zoster in last 30 days. Diabetic Pedal Pulse Exam: Patient received diab-pedal pulse exam at this encounter. Result of Exam: Normal EDUCATION was educated on proper foot care and da jenniffer examination of feet. Educational materials were made available to Niya barcenas regarding appropriate foot care hygiene. Level of Understanding: ... Verbalizes Understanding Diabetic Sensory Foot Exam: Patient had diab-sensory foot exam completed by monofilament at this encounter. Result of Exam: Normal EDUCATION [place] was educated on proper foot care and da jenniffer examination of feet. Educational materials were made available to Niya barcenas regarding appropriate foot care hygiene. Level of Understanding: ... Verbalizes Understanding Diabetic Visual Foot Exam: Patient had diab-visual foot exam at this [facility] n[facility]. Result of Exam: Normal EDUCATION [place] was educated on proper foot care and da jenniffer examination of feet. Educational materials were made available to Niya barcenas regarding appropriate foot care hygiene. Level of Understanding: ... Verbalizes Understanding /elina/ SUKHDEV QUINONES Signed: 02/23/2021 14:14
--- OUTSIDE RECORDS SUMMARY | 2021-09-20 19:15 | External Medical Summary | Encounter Summary ---
:1980 Author Organization [facility] of [facility] Address [address] [place] [address] Care Team Providers Name Role Phone CHARISSE GARCIA Primary Care Provider Unavailable Selected Encounter This section includes the information on record at [place] for the Encounter. Date/Time Encounter Type Encounter Description Reason Provider Source February 10, 2021 02:09 Outpatient Encounter PRIMARY CARE/MEDICINE PM [facility] Encounter Template Text not used by [place] Plan of Treatment: Future Appointments (+ 6 months) and Future Tests (+/- 45 days) The Plan of Treatment section includes future care activities for the patient from all [place] treatmentfacilities. This section includes future appointments and future orders which are active, pending orscheduled.Future Appointments This section includes appointments that were scheduled to occur 6 months from the date of the Encounter, up to a maximum of 20 appointments. The data comes from all [place] treatment facilities. Appointment Date/Time Appointment Type Appointment Facili ty Name Feb 16, 2021 02:30 PM AMBULATORY - MEDICINE [facility] Feb 18, 2021 11:00 AM AMBULATORY - PSYCHIATRY [facility] [place] Feb 23, 2021 02:00 PM AMBULATORY - MEDICINE [facility] Mar 05, 2021 10:30 AM AMBULATORY - MEDICINE [facility] Mar 10, 2021 09:30 AM AMBULATORY - PS[facility]IATRY [facility] Mar 10, 2021 10:00 AM [facility]ORY - MEDICINE [facility] Mar 16, 2021 11:00 AM AM[facility]ULATORY - MEDICINE [facility] Mar 24, 2021 09:30 AM [facility] Apr 22, 2021 03:15 PM AMBULATORY - MEDICINE [facility] Apr 23, 2021 02:30 PM AMBULATORY - MEDICINE [facility] Apr 27, 2021 07:30 AM AMBULATORY - PS[facility]CHIATRY [facility] Apr 29, 2021 02:00 PM AMBULATORY - MEDICINE [facility] Apr 29, 2021 02:30 PM AMBULATORY - MEDICINE [facility] May 12, 2021 02:31 PM AMBULATORY - MEDICINE [facility] Jun 04, 2021 03:00 PM AMBULATORY - MEDICINE [facility] Jun 22, 2021 08:30 AM AMBULATORY - MEDICINE [facility] Jun 29, 2021 01:00 PM AMBULATORY - MEDICINE [facility] Jul 01, 2021 08:00 AM AMBULATORY - NONE [facility] Jul 07, 2021 07:00 AM AMBULATORY - NONE [facility] Jul 15, 2021 03:00 PM AMBULATORY - MEDICINE [facility] Active, Pending, and Scheduled [...] the Encounter. The data comes from all [place] treatment facilities. Test Date/Time Test Type Test Details Facility Name Feb 16, 2021 03:11 PM Consult Order [facility] Mar 23, 2021 08:57 AM Consult Order [facility] Lab Results: +/- 30 days of the encounter This section includes the Chemistry and Hematology Lab Results on record with [place] for the patient. Radiology Reports and Pathology Reports are provided separately, in subsequent sections.Lab Results This section contains the Chemistry/Hematology Results that were resulted 30 days before or 30 daysafter the date of the Encounter. Date/Time Source Result Type Result - Unit Interpretation Reference Range Comment February 09, 2021 [facility] VITAMIN D (25-HYDROXY) Speci men Type: [...] CONFIRMED BY REPEAT TESTING. CALLED TO HELIO GARCIA@[id number]/ALBERTO READ BACK OF CRITICAL VALUES OCCURRED FOR CONFIRMATION. CRITICAL RESULT KNOWN/REPORTED 02/10/21 Ordering Provid er: CHARISSE GARCIA Report Released Date/Time: Nov 07, 2020 04:38 PM Reporting Lab: [facility] [place] [address] [address] [place] [phone] Performing Lab: [facility] [place] [address] [address] [place] [phone] VITAMIN D (25-HYDROXY) 24.2 ng/mL L 30.0-1 February 09, 2021 11:09 AM [facility] MAGNESIUM Specim en Type: SERUM Comment: [...] RESULTS CONFIRMED BY REPEAT TESTING. CALLED TO HLEIO GARCIA@[id number]/ALBERTO READ BACK OF CRITICAL VALUES OCCURRED FOR CONFIRMATION. CRITICAL RESULT KNOWN/REPORTED 02/10/21 Ordering Provid er: CHARISSE GARCIA Report Released Date/Time: Nov 07, 2020 04:38 PM Reporting Lab: [facility] [place] [address] [address] [place] [phone] Performing Lab: [facility] [place] [address] [address] [phone] MAGNESIUM 1.9 mg/dL 1.6-2.6 February 09, 2021 11:09 AM [facility] VITAMIN B-12 Specim en Type: SERUM Comment: High d oses of Biotin supplements (>5 mg/day) may falsely increase Vitamin B-12, Vitamin D (25OH), Free T4, and Folate results. Test specimens should be collected at least 8 hrs after last ingestion of high dose biotin. Ordering Provid er: CHARISSE GARCIA Report Released Date/Time: Nov 07, 2020 04:38 PM Reporting Lab: [facility] [place] [address] [address] [place] [phone] Performing Lab: [facility] [place] [address] [address] [place] [phone] VITAMIN B-12 996 pg/mL 232-1245 February 09, 2021 [facility] COMPREHENSIVE METABOLIC Spec imen Type: SERUM [...] CONFIRMED BY REPEAT TESTING. CALLED TO HELIO GARCIA@9051 02-10-21/NS READ BACK OF CRITICAL VALUES OCCURRED FOR CONFIRMATION. CRITICAL RESULT KNOWN/REPORTED [id number] 02/10/21 Ordering Provid er: CHARISSE GARCIA Report Released Date/Time: Nov 07, 2020 04:38 PM Reporting Lab: [facility] [place] [address] [address] [place] [phone] Performing Lab: [facility] [place] [address] [address] [phone] GLUCOSE 502 mg/dL 71-109 BUN/UREA (BLOOD UREA [...] L > 90 February 09, 2021 11:09 [facility] CBC & MORPHOLOGY (WITH Sp ecimen Type: BLOOD AM DIFF) No comment enter ed. Ordering Provid er: CHARISSE GARCIA Report Released Date/Time: Nov 07, 2020 04:38 PM Reporting Lab: [facility] [address] [place] [address] Performing Lab: [facility] [address] [place] [address] WBC (TOTAL WBC COUNT) 10.1 K/L 3.0-10. [...] ABSOLUTE 0.02 K/L 0-0.07 February 09, 2021 [facility] THYROID STIMULATING Specimen Type: SERUM 11:09 [...] CONFIRMED BY REPEAT TESTING. CALLED TO HELIO GACRIA@2313 02-10-21/NS READ BACK OF CRITICAL VALUES OCCURRED FOR CONFIRMATION. CRITICAL RESULT KNOWN/REPORTED [id number] 02/10/21 Ordering Provid er: CHARISSE GARCIA Report Released Date/Time: Nov 07, 2020 04:38 PM Reporting Lab: [facility] [address] [place] [address] Performing Lab: [facility] [address] [place] [address] THYROID STIMULATING HORMONE 2.02 IU/mL 0.300-4.25 February 09, 2021 11:09 AM [facility] LIPID PANEL Specim en Type: SERUM [...] CONFIRMED BY REPEAT TESTING. CALLED TO HELIO GARCIA@5713 02-10-21/NS READ BACK OF CRITICAL VALUES OCCURRED FOR CONFIRMATION. CRITICAL RESULT KNOWN/REPORTED [id number] 02/10/21 Ordering Provid er: CHARISSE GARCIA Report Released Date/Time: Nov 07, 2020 04:38 PM Reporting Lab: [facility] [address] [place] [address] Performing Lab: [facility] [address] [place] [address] CHOLESTEROL 246 mg/dL H <199 TRIGLYCERIDE 909 mg/dL H <149 HDL CHOLESTEROL 28 mg/dL L >40 NON-HDL CHOLESTEROL 218 mg/dL <130 LDL, DIRECT 86 mg/dL 0-129 February 09, 2021 11:09 AM [facility] URINALYSIS (IRIS) Spec imen Type: URINE No comment enter ed. Ordering Provid er: CHARISSE GARCIA Report Released Date/Time: Nov 07, 2020 04:38 PM Reporting Lab: [facility] [address] [place] [address] Performing Lab: [facility] [address] [place] [address] URINE COLOR Light-Yellow SPECIFIC GRAVITY 1.032 H [...] < 2 February 09, 2021 11:09 AM [facility] HEMOGLOBIN A1C Specim en Type: BLOOD [...] 2020 04:38 PM Reporting Lab: [facility] [address] [place] [address] Performing Lab: [facility] [address] [place] [address] HEMOGLOBIN A1C 14.4 % H 0-5.6 Social History: Smoking Status (Most current) and Tobacco Use (All prior to encounter date) This section includes the most current, and the historical, smoking and tobacco-related health factors from the [place] facility where the Encounter took place.Current Smoking Status This section includes the most current smoking, or tobacco-related health factor, from the [place] facility where the Encounter took place. Date/Time Current Smoking Status Comment Facility Jan 07, 2009 09:40 AM CURRENT TOBACCO USER [facility] [place] MarlenBianka [facility] Encounter Notes: All associated encounter notes This section contains the clinical notes associated to the Encounter. Date/Time Encounter Note(s) Provider Source February 10, 2021 01:15 PM TELEPHONE ENCOUNTER NOTE: CHARISSE GARCIA [facility] LOCAL TITLE: TELEPHONE NOTE STANDARD TITLE: TELEPHONE ENCOUNTER NOTE DATE OF NOTE: FEBRUARY 10, 2021@13:15 ENTRY DATE: FEBRUARY 10, 2021@14:11:31 AUTHOR: CHARISSE GARCIA EXP COSIGNER: URGENCY: STATUS: COMPLETED Patient Phone Number: [phone] T/C to vet notified of lab Glucose 502 and A1c 1 4.4. She has not been taking insulin the past 2 weeks plan to restart 70/30 60U BID and 15U aspart in am with bkf. She states was in ER tirstates oct 2020 with BS 700 as had stopped insulin Sep and oct then restarted again. She states she fee ls heavy and fat while taking insulin. Just does not like how she feels. Ageeable to diatican and pharm consult ordered /elina/ Charisse CADET Nurse Practitioner Signed: 02/10/2021 14:15 Receipt Acknowledged By: * AWAITING SIGNATURE * JAIDEN MARLOW A
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
--- OUTSIDE RECORDS SUMMARY | 2021-09-20 19:15 | External Medical Summary | Encounter Summary ---
:1980 Author Organization [facility] of [facility] rs Address [address] [place] [id number] Care Team Providers Name Role Phone CHARISSE GARCIA Primary Care Provider Unavailable Selected Encounter This section includes the information on record at [place] for the Encounter. Date/Time Encounter Type Encounter Reason Provider Source Description Feb 16, 2021 HC PRO PHONE TELEPHONE PRIMARY ICD-10-CM E11.65 Michelle MARLOW 02:30 PM CALL 21-30 MIN CARE Type 2 diabetes A mellitus with hyperglycemia with Provider Comments: DM - Diabetes mellitus ([facility] [id number]) IHE Encounter Template Text not used by [place] Assessments - Encounter Diagnoses This section includes the primary and secondary diagnoses documented for the Encounter. Date/Time Primary/Secondary Diagnosis Name Provider Source Diagnosis Feb 16, 2021 PRIMARY Type 2 diabetes JAIDEN MARLOW A 02:30 PM mellitus with CLINIC hyperglycemia Feb 16, 2021 SECONDARY Patient's intentl JAIDEN MARLOW [place] 02:30 PM undrdose of meds CLINIC regimen for oth reason Plan of Treatment: Future Appointments (+ 6 [...] Appointment Type Appointment Facili ty Name Feb 18, 2021 11:00 AM AMBULATORY - PSYCHIATRY [facility] Feb 23, 2021 02:00 PM AMBULATORY - MEDICINE [facility] Mar 05, 2021 10:30 AM AMBULATORY - MEDICINE [facility] Mar 10, 2021 09:30 AM AMBULATORY - PSYCHIATRY [facility] Mar 10, 2021 10:00 AM AMBULATORY - MEDICINE [facility] Mar 16, 2021 11:00 AM AMBULATORY - MEDICINE [facility] Mar 24, 2021 09:30 AM AMBULATORY - PSYCHIATRY [facility] Apr 22, 2021 03:15 PM AMBULATORY - MEDICINE [facility] Apr 23, 2021 02:30 PM AMBULATORY - MEDICINE [facility] Apr 27, 2021 07:30 AM AMBULATORY - PSYCHIATRY [facility] Apr 29, 2021 02:00 PM AMBULATORY - MEDICINE [facility] Apr 29, 2021 02:30 PM AMBULATORY - MEDICINE [facility] May 12, 2021 02:31 PM AMBULATORY - MEDICINE [facility] Jun 04, 2021 03:00 PM AMBULATORY - MEDICINE [facility] Jun 22, 2021 08:30 AM AMBULATORY - MEDICINE [facility] Jun 29, 2021 01:00 PM AMBULATORY - MEDICINE [facility] Jul 01, 2021 08:00 AM AMBULATORY - NONE [facility] Jul 07, 2021 07:00 AM AMBULATORY - NONE [facility] Jul 15, 2021 03:00 PM AMBULATORY - MEDICINE [facility] Jul 26, 2021 09:00 AM AMBULATORY - MEDICINE [facility] Active, Pending, and Scheduled [...] Feb 16, 2021 03:11 PM Consult Order [facility] Cons Field Technical Assistant's Choice Mar 23, 2021 08:57 AM Consult Order [facility] Cons Field Technical Assistant's Choice Surgical Procedures: All associated to the encounter This section includes all Surgical Procedures and Surgical Procedure Notes associated to the Encounter.Surgical Procedures This section includes all Surgical Procedures associated to the Encounter.Surgical Procedure Date/Time Procedure Procedure Type Procedure Provider Source Qualifiers Feb 16, 2021 PHONE CALL BY HC PRO PHONE JAIDEN MARLOW [facility] 02:30 PM HC PROF 21-30 CALL 21-30 MIN A CLINIC MIN Surgical Notes There are no [...] CONFIRMED BY REPEAT TESTING. CALLED TO HELIO GARCIA@1673 02-10-21/NS READ BACK OF CRITICAL VALUES OCCURRED FOR CONFIRMATION. CRITICAL RESULT KNOWN/REPORTED [id number] 02/10/21 Ordering Provid er: CHARISSE GARCIA Report Released Date/Time: Nov 07, 2020 04:38 PM Reporting Lab: [facility] [place] [address] [address] [address] Performing Lab: [facility] [place] [address] [address] [address] VITAMIN D (25-HYDROXY) 24.2 ng/mL L 30.0-1 [...] 2020 04:38 PM Reporting Lab: [facility] [place] [address] [place] [address] Performing Lab: [facility] [address] [place] [address] MAGNESIUM 1.9 mg/dL 1.6-2.6 February 09, 2021 [...] 2020 04:38 PM Reporting Lab: [facility] [place] [address] [address] [address] Performing Lab: [place] [place] [address] [address] [address] VITAMIN B-12 996 pg/mL 232-1245 February 09, [...] CONFIRMED BY REPEAT TESTING. CALLED TO HELIO GARCIA@2473 02-10-21/ALBERTO READ BACK OF CRITICAL VALUES OCCURRED FOR CONFIRMATION. CRITICAL RESULT KNOWN/REPORTED [id number] 02/10/21 Ordering Provid er: CHARISSE GARCIA Report Released Date/Time: Nov 07, 2020 04:38 PM Reporting Lab: [facility] [address] [place] [address] Performing Lab: [facility] CL[facility] [address] [place] [address] GLUCOSE 502 mg/dL HH 71-109 BUN/UREA (BLOOD [...] 2020 04:38 PM Reporting Lab: [facility] Pe[facility] [place] [address] [place] [address] Performing Lab: [facility] Perera [place] [address] [place] [address] WBC (TOTAL WBC COUNT) 10.1 K/L 3.0-10. [...] CONFIRMED BY REPEAT TESTING. CALLED TO HELIO GARCIA@8081 02-10-21/NS READ BACK OF CRITICAL VALUES OCCURRED FOR CONFIRMATION. CRITICAL RESULT KNOWN/REPORTED [id number] 02/10/21 Ordering Provid er: CHARISSE GARCIA Report Released Date/Time: Nov 07, 2020 04:38 PM Reporting Lab: [facility] [place] [address] [place] [address] Performing Lab: [place] [place] [address] [place] [address] THYROID STIMULATING HORMONE 2.02 IU/mL 0.300-4.25 February [...] CONFIRMED BY REPEAT TESTING. CALLED TO HELIO GARCIA@0563 02-10-21/ALBERTO READ BACK OF CRITICAL VALUES OCCURRED FOR CONFIRMATION. CRITICAL RESULT KNOWN/REPORTED [id number] 02/10/21 Ordering Provid er: CHARISSE GARCIA Report Released Date/Time: Nov 07, 2020 04:38 PM Reporting Lab: [facility] [place] [address] [place] [address] Performing Lab: [facility] STEWARD[address] [place] [address] CHOLESTEROL 246 mg/dL H <199 TRIGLYCERIDE 909 mg/dL H <149 HDL CHOLESTEROL 28 mg/dL L >40 NON-HDL CHOLESTEROL 218 mg/dL <130 LDL, DIRECT 86 mg/dL 0-129 February 09, 2021 11:09 AM [facility] URINALYSIS (IRIS) Spec imen Type: URINE No comment enter ed. Ordering Provid er: CHARISSE GARCIA Report Released Date/Time: Nov 07, 2020 04:38 PM Reporting Lab: [facility] [address] [place] [address] Performing Lab: [facility] [address] [place] [address] URINE COLOR Light-Yellow SPECIFIC GRAVITY 1.032 H [...] 2020 04:38 PM Reporting Lab: MATIAS Perera [address] [place] [address] Performing Lab: [facility] Perera [address] [place] [address] HEMOGLOBIN A1C 14.4 % H 0-5.6 Social [...] Jul 25, 2019 01:50 PM VA-TOBACCO USE [facility] Tobacco Use History This section includes a history of the smoking, or tobacco- related health factors, that were collected on or before the date of the Encounter. The data comes from the [place] facility where the Encounter took place. Date/Time Smoking Status/Tobacco Use Comment Facil susany Jul 25, 2019 01:50 PM VA-TOBACCO USE > 15 LESS [facility] THAN 30 YEARS Jul 25, 2019 01:50 PM VA-TOBACCO USE ADVICE [facility] Jul 25, 2019 01:50 PM VA-TOBACCO USE [facility] Jul 25, 2019 01:50 PM VA-TOBACCO USE MED NOTIFY [facility] PROVIDER Jul 25, 2019 01:50 PM VA-TOBACCO USER EVERY DAY [facility] Jul 09, 2018 03:00 PM VA-TOBACCO USE > 15 LESS L [facility] THAN 30 YEARS Jul 09, 2018 03:00 PM VA-TOBACCO USE ADVICE [facility] Jul 09, 2018 03:00 PM VA-TOBACCO USE [facility] Jul 09, 2018 03:00 PM VA-TOBACCO USE MED NO [facility] Jul 09, 2018 03:00 PM VA-TOBACCO USE WI 30 MIN [facility] Jul 09, 2018 03:00 PM VA-TOBACCO USER EVERY DAY [facility] Jan 10, 2018 12:55 PM TOBACCO MEDICATION [facility] INTERVENTION Sep 19, 2017 09:33 AM CURRENT TOBACCO USER [facility] Sep 19, 2017 09:33 AM TOBACCO SCREEN COMPLETED [facility] No, not willing to quit now Aug 12, 2016 01:53 PM CURRENT TOBACCO USER [facility] Aug 12, 2016 01:53 PM TOBACCO MEDICATION [facility] REFERRAL Dilma CADET Aug 12, 2016 01:53 PM TOBACCO SCREEN COMPLETED [facility] Yes, willing to quit now May 30, 2013 11:04 AM LIFETIME NON-USER OF [facility] TOBACCO Feb 22, 2012 09:19 AM CURRENT TOBACCO USER [facility] Feb 22, 2012 09:19 AM TOBACCO SCREEN COMPLETED [facility] No, not willing to quit now Mar 07, 2011 11:32 AM TOBACCO MEDICATION [facility] INTER[facility] Feb 25, 2011 10:38 AM CURRENT TOBACCO USER Severity= MINIMAL ANA PAULA MORENO [facility] Feb 25, 2011 10:38 AM TOBACCO MEDICATION Severity= MINIMAL [facility] HALEY Feb 25, 2011 10:38 AM TOBACCO SCREEN COMPLETED Severity= MINIMA Ana [facility] Yes, willing to quit now Sep 27, 2010 11:38 AM TOBACCO MEDICATION [facility] INTERVENTION Sep 27, 2010 11:38 AM TOBACCO MEDICATION ORDERED [facility] Jan 04, 2010 10:28 AM CURRENT TOBACCO USER HARRY BERNAL [facility] Jan 04, 2010 10:28 AM TOBACCO MEDICATION GLENVILALISTAIR Juarez [facility] INTERVENTION Jan 04, 2010 10:28 AM TOBACCO MEDICATION ORDERED [facility] Jan 04, 2010 10:28 AM TOBACCO MEDICATION [facility] Larry [facility] RE[facility] DR. CANELA Encounter Notes: All associated encounter notes This section contains the clinical notes associated to the Encounter. Date/Time Encounter Note(s) Provider Source Feb 16, 2021 02:31 PHARMACY TELEPHONE ENCOUNTER NOTE: SILVESTRE MARLOW [facility] PM LOCAL TITLE: CLINICAL PHARMACIST TELEPHONE NOTE STANDARD TITLE: PHARMACY TELEPHONE ENCOUNTER NOT E DATE OF NOTE: FEB 16, 2021@14:31 ENTRY DATE: FEB 16, 2021@14:31:29 AUTHOR: JAIDEN MARLOW EXP COSIGNER: URGENCY: STATUS: COMPLETED CLINICAL PHARMACIST TELEPHONE NOTE Has ADDE NDA Patient Phone Number: [phone] verified full name / s / b: Reason for visit: DM. CC: i was off of my insulin for about a month. i n oct i went to the ER with DKA with a BG of 700. they asked me how many hector es i've had DKA and i didn't know what they were talking about. at that time i had been off of insulin for ~ 1-1.5 months. i resumed my insulin last week 15 units of novolog and 60 units of the 70/30 twice a day. Non-[facility] providers: [facility] is [facility] Preferred Pharmacy: [place] Computerized Problem List is the source for the followin. Degeneration of lumbar intervertebral disc 2. Right hip pain 3. Major depression 4. Ca cervix - screening done, Onset 05/02/16 05/02/2016 neg due again 04/2021 5 yr 5. Pseudotumor cerebri, Onset 02/01/19 [facility] sent referral to de urologist ROBERT 6. Anaphylaxis due to ingested food, Onset 11/16/[address] Lassiter food allergies 7. Acute otitis media 8. Sprain of right ankle 9. Knee injury 05/24/2017 MRI right knee microtrabecular fractur e, bone marrow edema medial right tibia, bone bruise 10. Pain in right knee 11. Ankle joint pain, Onset 08/15/16 X ray 07/2018 6mm ossification medial ankle loo se body post old avulsion fx off medial talar, done age undetermined, spur talar neck, possible impingement and mod effusion [place] X ray 12. Acute sinusitis 13. Nicotine dependence 14. Pain in pelvis 15. Female pelvic inflammatory disease 16. HPV - Human papillomavirus test positive 17. Chronic sinusitis 18. Allergic rhinitis 19. Migraine, Onset 01/14/16 20. Viral meningitis, Onset 01/14/16 21. Acute sinusitis 22. DM - Diabetes mellitus 23. Hyperlipidemia 24. Ureteric stone, Onset 12/04/14 2 stones left ureter 12/04/2014 small non obstructing stones in bilat kidneys 25. Hypertriglyceridemia 26. Microscopic hematuria 27. Borderline personality disorder (SNOMED CT 25789227) 28. Sprain of metacarpophalangeal joint, Onset 01/02/14 Xray 01/02/14 no fx finger joint ER, Dx jont wagner n Etodolac tx 29. Menorrhagia (SNOMED CT 987823034) 30. Influenza, Onset 09/29/13 Tamiflu [facility] 31. Contraception (SNOMED CT 10884499) 32. Recurrent major depression (SNOMED CT 58201103) 33. Benign intracranial hypertension (SNOMED CT 76170495) 34. Papilledema associated with increased intracranial pressure (ICD-9-CM 377.01) 35. Neck Pain (ICD-9-CM 723.1) Only has this with migraines 36. Diabetes mellitus (SNOMED CT 47958174) dx 2004,actos 37. Low back pain (SNOMED CT 758739054) resolved with PT X ray mild DJD facets L4-5 X ray [facility] 03/22/2018 38. Knee: arthralgia no current pain 39. Migraine, unspecified, without mention of Intractable Migraine without mention o tried topamax,zomig-gabapentin started 12/25 Active Outpatient Medications (including Supplie s): Active Outpatient Medications Status 1) ACCU-CHEK GUIDE (GLUCOSE) TEST STRIP USE ONE STRIP ACTIVE THREE TIMES A DAY NEEDED FOR BLOOD GLUCOSE TESTING -- FASTING AM BGs & trying to wait 2 hrs after either brakfast or lunch to see how high she's spiking 2) ATORVASTATIN CALCIUM 20MG TAB TAKE ONE [...] DAY FOR PAIN TAKE WITH FOOD 8) FLUCONAZOLE 150MG TAB TAKE ONE TABLET BY MOUT H EVERY ACTIVE 72 HOURS NEEDED FOR YEAST INFECTION. INCREAS E YOGURT OR ACIDOPHYLIS/PROBIOTIC USE 9) FLUOXETINE HCL 20MG CAP TAKE FOUR CAPSULES BY MOUTH ACTIVE EVERY MORNING FOR DEPRESSION/MOOD 10) GABAPENTIN 300MG CAP TAKE TWO CAPSULES BY MO UTH THREE ACTIVE TIMES A DAY NEEDED FOR NERVE PAIN 11) GUAIFENESIN 600MG SA TAB TAKE ONE TABLET BY MOUTH ACTIVE TWICE A DAY FOR CONGESTION 12) INSULIN,ASPART 100UN/ML CARRIE FLEXPEN 3ML INJ ECT 15 ACTIVE UNITS UNDER SKIN AT NOON FOR DIABETES . TAKE 10 MINUTES PRIOR TO YOUR LUNCH. 13) INSULIN,ASPART 70/30 NOVOLOG FLEXPEN 3ML INJ ECT 60 ACTIVE UNITS UNDER SKIN TWICE A DAY WITH MEALS OR DIRECTED BY CLINICAL PHARMACIST FOR DIABETES 14) LIDOCAINE 5% PATCH APPLY 1 PATCH TO SKIN ORLY DAY ACTIVE (FOR 12 HOURS ON, FOLLOWED BY 12 HOURS OFF) FOR PAIN 15) LORATADINE 10MG TAB TAKE ONE TABLET BY MOUTH EVERY ACTIVE DAY FOR ALLERGIES 16) MULTIVITAMIN, ICAPS MV TAB,EC TAKE 1 CAPSULE BY MOUTH ACTIVE EVERY MORNING FOR VITAMIN SUPPLEMENT 17) NEEDLE,PEN 31G,8MM USE NEEDLE DIRECTED ACTIVE NEEDED FOR USE WITH INSULIN PEN INJECTIONS 18) OXYBUTYNIN CHLORIDE 5MG TAB TAKE ONE TABLET BY MOUTH ACTIVE EVERY DAY FOR URINARY INCONTINENCE 19) PROPRANOLOL 40MG TAB TAKE ONE TABLET BY MOUT H EVERY ACTIVE DAY TO PREVENT MIGRAINES * NOTIFY PROVIDER IF OR MAY BECOME 20) TIZANIDINE HCL 4MG TAB TAKE 1 TO 2 TABLETS ( 4-8MG) BY ACTIVE MOUTH UP TO THREE TIMES A DAY FOR MUSCLE SPASM 21) VARENICLINE 1MG TAB TAKE ONE TABLET BY [...] (HAIR SKIN AND NAILS VITAMIN) EVERY DAY 24 Total Medications REMOTE MEDS: No Active Remote Medications for this patient DM regimen: 70/30 60 units AM / PM (~12 hours) aspart 15 units NOON Past DM meds: Allergies: GLIPIZIDE, METFORMIN SH: not working - reports she's applying for job s, but hasn't been hired PHYSICAL ACTIVITY: -- sit at home and applying for work : in the past week has take her dog a walk x1 : doesn't have step tracker on her phone COMPLIANCE / ADHERANCE: -- above HPI DIET: (how many meals / day?) : not eating cookies, cakes, mounds of chocolat e, loaves of bread, stacks of tortillas, no sugary cereals (fruity rudolph) : verbalized "bad cho" : resumed eating salad and chicken (baked) HYPOGLYCEMIC AWARENESS: 66 @ 10/2020 -- S/sx assoc c/ hypos: dizziness, lightheaded, [...] 11:09) Vit D (25-OH): Collection DT Spec [id number] 02/09/2021 11:09 SERUM 24.2 L B12: [...] Retinopathy last eye exam? last retinal imaging? [id number] Exam HOME BG: meter averages 02/16 7-day: - 14-day: - 30-day: - 90-day: - dhruv averages from her phone: 7-day: 179 14-day: 179 +/- 70 30-day: 179 +/- 70 90-day: 225 +/- 102 ASSESSMENT / PLAN: = DM2: a1c goal <9 initially : she's on statin : pt reports that right now she feels like she needs a "tight leash" for follow-up, and reports if "given an inch, i 'll take a mile" : reinforced her decision to resume insulin for her overall health, and encouraged her to continue to be consistent. : no changes today. : will attempt to follow to attritiion. = Consults entered: teleMOVE! -- pcp has entered career services director consult and awaiti ng scheduling = RTC --- 2 weeks = Meds [...] intervention made No change made Address compliance/adherence Care coordination Thank you. /tammie MARLOW PHARM D, BCACP CLINICAL CAREER DEVELOPMENT ENGINEER Signed: 02/16/2021 14:58 02/16/2021 ADDENDUM STATUS: COMPLETED microvascular changes present: 07/2019 - DM sensory foot exam Result of Exam: Abnormal Comment: numbness over the dorsal left foot due for annual DM eye exam. /elina/ JAIDEN MARLOW PHARM D, BCACP CLINICAL CAREER DEVELOPMENT ENGINEER Signed: 02/16/2021 15:08
--- OUTSIDE RECORDS SUMMARY | 2021-09-20 19:15 | External Medical Summary | Encounter Summary ---
:1980 Author Organization Department [facility] Address [address] [place] [address] Care Team Providers Name Role Phone CHARISSE GARCIA Primary Care Provider Unavailable Selected Encounter This section includes the information on record at [place] for the Encounter. Date/Time Encounter Type Encounter Description Reason Provider Source Feb 19, 2021 03:49 Outpatient Encounter TELEPHONE PRIMARY PM CARE IHE Encounter Template Text not used by DE Plan of Treatment: Future Appointments (+ 6 months) and Future Tests (+/- 45 days) The Plan of Treatment section includes future care activities for the patient from all DE treatmentfacilities. This section includes future appointments and future orders which are active, pending orscheduled.Future Appointments This section includes appointments that were scheduled to occur 6 months from the date of the Encounter, up to a maximum of 20 appointments. The data comes from all DE treatment facilities. Appointment Date/Time Appointment Type Appointment Facili ty Name Feb 23, 2021 02:00 PM AMBULATORY - MEDICINE [facility] Mar 05, 2021 10:30 AM AMBULATORY - MEDICINE [facility] Mar 10, 2021 09:30 AM AMBULATORY - PSYCHIATRY [facility] Mar 10, 2021 10:00 AM AMBULATORY - MEDICINE MATIAS MOYA [facility] Mar 16, 2021 11:00 AM AMBULATORY - MEDICINE [facility] Mar 24, 2021 09:30 AM AMBULATORY - PSYCHIATRY [facility] IN Apr 22, 2021 03:15 PM AMBULATORY - MEDICINE [facility] Apr 23, 2021 02:30 PM AMBULATORY - MEDICINE [facility] Apr 27, 2021 07:30 AM [facility] - [facility]RY [facility] Apr 29, 2021 02:00 PM AMBULATORY - MEDICINE MATIAS MOYA [facility] Apr 29, 2021 02:30 PM AMBULATORY - MEDICINE [facility] May 12, 2021 02:31 PM AMBULATORY - MEDICINE [facility] Jun 04, 2021 03:00 PM AMBULATORY - MEDICINE [facility] Jun 22, 2021 08:30 AM AMBULATORY - MEDICINE [facility] Jun 29, 2021 01:00 PM AMBULATORY - MEDICINE [facility] Jul 01, 2021 08:00 AM AMBULATORY - NONE [facility] STEWARD [facility] Jul 07, 2021 07:00 AM AMBULATORY - NONE [facility] STEWARD [facility] Jul 15, 2021 03:00 PM AMBULATORY - MEDICINE [facility] Jul 26, 2021 09:00 AM AMBULATORY - MEDICINE [facility] Aug 04, 2021 01:00 PM AMBULATORY - MEDICINE [facility] IC Active, Pending, and Scheduled Orders This section includes a listing of several types of active, pending, and scheduled orders, including clinic medications orders, diagnostic test orders, procedure orders and consult orders; where the start date of the order is 45 days before the date of the Encounter or 45 days after the date of the Encounter. The data comes from all DE treatment facilities. Test Date/Time Test Type Test Details Facility Name Feb 16, 2021 03:11 PM Consult Order [facility]-OPHTH DIS M GMT [facility] Cons Wax Room Supervisor's Choice Mar 23, 2021 08:57 AM Consult Order [facility] Cons Wax Room Supervisor's Choice Lab Results: +/- 30 days of the encounter This section includes the Chemistry and Hematology Lab Results on record with DE for the patient. Radiology Reports and Pathology Reports are provided separately, in subsequent sections.Lab Results This section contains the Chemistry/Hematology Results that were resulted 30 days before or 30 daysafter the date of the Encounter. Date/Time Source Result Type Result - Unit Interpretation Reference Range Comment February 09, 2021 [facility] VITAMIN D (25-HYDROXY) Speci men Type: [...] CONFIRMED BY REPEAT TESTING. CALLED TO HELIO GARCIA@13002-10-21/ALBERTO READ BACK OF CRITICAL VALUES OCCURRED FOR CONFIRMATION. CRITICAL RESULT KNOWN/REPORTED 02/10/21 Ordering Provid er: CHARISSE GARCIA Report Released Date/Time: Nov 07, 2020 04:38 PM Reporting Lab: [facility] [place] [address] [address] [phone] Performing Lab: [facility] [place] [address] [place] [address] VITAMIN D (25-HYDROXY) 24.2 ng/mL L 30.0-1 00 February 09, 2021 11:[address] [facility] MAGNESIUM Specim en Type: SERUM Comment: [...] CONFIRMED BY REPEAT TESTING. CALLED TO HELIO GARCIA@5168 02-10-21/ALBERTO READ BACK OF CRITICAL VALUES OCCURRED FOR CONFIRMATION. CRITICAL RESULT KNOWN/REPORTED 02/10/21 Ordering Provid er: CHARISSE GARCIA Report Released Date/Time: Nov 07, 2020 04:38 PM Reporting Lab: [facility] [place] [address] [place] [address] Performing Lab: [place] [address] [place] [address] MAGNESIUM 1.9 mg/dL 1.6-2.6 February 09, 2021 11:[address] [facility] VITAMIN B-12 Specim en Type: SERUM Comment: High d oses of Biotin supplements (>5 mg/day) may falsely increase Vitamin B-12, Vitamin D (25OH), Free T4, and Folate results. Test specimens should be collected at least 8 hrs after last ingestion of high dose biotin. Ordering Provid er: CHARISSE GARCIA Report Released Date/Time: Nov 07, 2020 04:38 PM Reporting Lab: [place] [address] [place] [address] Performing Lab: MATIAS Perera [place] [address] [place] [address] VITAMIN B-12 996 pg/mL 232-1245 February 09, 2021 [facility] COMPREHENSIVE METABOLIC Spec imen Type: SERUM [...] CONFIRMED BY REPEAT TESTING. CALLED TO HELIO GARCIA@1573 02-10-21/NS READ BACK OF CRITICAL VALUES OCCURRED FOR CONFIRMATION. CRITICAL RESULT KNOWN/REPORTED [id number] 02/10/21 Ordering Provid er: CHARISSE GARCIA Report Released Date/Time: Nov 07, 2020 04:38 PM Reporting Lab: [place] [address] [place] [address] Performing Lab: [place] [address] [place] [address] GLUCOSE 502 mg/dL 71-109 BUN/UREA (BLOOD UREA [...] > 90 February 09, 2021 11:09 [facility] CBC & MORPHOLOGY (WITH Sp ecimen Type: BLOOD AM DIFF) No comment enter ed. Ordering Provid er: CHARISSE GARCIA Report Released Date/Time: Nov 07, 2020 04:38 PM Reporting Lab: [facility] CL[facility] [address] [place] [address] Performing Lab: [facility] [address] [place] [address] WBC (TOTAL WBC COUNT) 10.1 K/L 3.0-10. [...] 0.02 K/L 0-0.07 February 09, 2021 [facility] THYROID STIMULATING Specimen Type: SERUM 11:09 [...] CONFIRMED BY REPEAT TESTING. CALLED TO HELIO GARCIA@0263 02-10-21/NS READ BACK OF CRITICAL VALUES OCCURRED FOR CONFIRMATION. CRITICAL RESULT KNOWN/REPORTED [id number] 02/10/21 Ordering Provid er: CHARISSE GARCIA Report Released Date/Time: Nov 07, 2020 04:38 PM Reporting Lab: [facility] [address] [place] [address] Performing Lab: [facility] CL[facility] [address] [place] [address] THYROID STIMULATING HORMONE 2.02 IU/mL 0.300-4.25 February 09, 2021 11:[address] [facility] LIPID PANEL Specim en Type: SERUM [...] RESULTS CONFIRMED BY REPEAT TESTING. CALLED TO LEGAL INSTRUCTORMichelle GARCIA@0619 02-10-21/NS READ BACK OF CRITICAL VALUES OCCURRED FOR CONFIRMATION. CRITICAL RESULT KNOWN/REPORTED [id number] 02/10/21 Ordering Provid er: CHARISSE GARCIA Report Released Date/Time: Nov 07, 2020 04:38 PM Reporting Lab: [facility] STEWARD[address] [place] [address] Performing Lab: [place] [address] [place] [address] CHOLESTEROL 246 mg/dL H <199 TRIGLYCERIDE 909 mg/dL H <149 HDL CHOLESTEROL 28 mg/dL L >40 NON-HDL CHOLESTEROL 218 mg/dL <130 LDL, DIRECT 86 mg/dL 0-129 February 09, 2021 11:[address] [facility] URINALYSIS (IRIS) Spec imen Type: URINE No comment enter ed. Ordering Provid er: CHARISSE GARCIA Report Released Date/Time: Nov 07, 2020 04:38 PM Reporting Lab: [place] [address] [place] [address] Performing Lab: MATIAS Perera [address] [place] [address] URINE COLOR Light-Yellow SPECIFIC GRAVITY 1.032 H [...] 2 February 09, 2021 11:[address] [facility] HEMOGLOBIN A1C Specim en Type: BLOOD [...] 04:38 PM Reporting Lab: [facility]IAS Perera [address] [place] [address] Performing Lab: MATIAS Perera [address] [place] [address] HEMOGLOBIN A1C 14.4 % H 0-5.6 Social History: Smoking Status (Most current) and Tobacco Use (All prior to encounter date) This section includes the most current, and the historical, smoking and tobacco-related health factors from the DE facility where the Encounter took place.Current Smoking Status This section includes the most current smoking, or tobacco-related health factor, from the DE facility where the Encounter took place. Date/Time Current Smoking Status Comment Facility Jan 07, 2009 09:40 AM CURRENT TOBACCO USER EDGAR Perera [facility] Encounter Notes: All associated encounter notes This section contains the clinical notes associated to the Encounter. Date/Time Encounter Note(s) Provider Source Feb 19, 2021 03:49 PM TELEPHONE ENCOUNTER NOTE: SUKHDEV QUINONES [facility] LOCAL TITLE: TELEPHONE NOTE STANDARD TITLE: TELEPHONE ENCOUNTER NOTE DATE OF NOTE: FEB 19, 2021@15:49 ENTRY DATE: FEB 19, 2021@15:50:05 AUTHOR: SUKHDEV QUINONES EXP COSIGNER: URGENCY: STATUS: COMPLETED Patient Phone Number: [phone] Following information left on answer machine. Instructions: *Bring all medications you are currently taking , including any OTC's, and herbals. *Bring BP monitor/Diabetic meter and logs to ap pt. *Arrive 30 minutes prior to scheduled appt time - no labs *Take all pills as directed before appt and eat breakfast, as no labs ordered. *Arrive 1 hour prior to scheduled appt- labs or dered Remember to fast if you have been instructed to do so. *Bring diabetic medications and snack to eat im mediately after lab work completed and diabetic meds take n. *Take BP pills with a small sip of water, if fa sting for lab work. *Bring snack to eat immediately after lab draw. *Bring list of questions/concerns to discuss wi th provider, if applicable. Patient asked to bring a list of questions or co ncerns to their appointment. /elina/ SUKHDEV QUINONES Signed: 02/19/2021 15:51
--- OUTSIDE RECORDS SUMMARY | 2021-09-20 19:16 | External Medical Summary | Encounter Summary ---
:1980 Author Organization Department [facility] Address [address] [place] [address] Care Team Providers Name Role Phone CHARISSE GARCIA Primary Care Provider Unavailable Selected Encounter This section includes the information on record at [place] for the Encounter. Date/Time Encounter Type Encounter Description Reason Provider Source Nov 07, 2020 04:22 Outpatient Encounter PRIMARY CARE/MEDICINE PM IHE Encounter [...] 11:15 AM AMBULATORY - MEDICINE [facility] Feb 16, 2021 02:30 PM AMBULATORY - MEDICINE [facility] Feb 18, 2021 11:00 AM AMBULATORY - PSYCHIATRY [facility] IN Feb 23, 2021 02:00 PM AMBULATORY - MEDICINE [facility] Mar 05, 2021 10:30 AM AMBULATORY - MEDICINE [facility] Mar 10, 2021 09:30 AM AMBULATORY - PS[facility]CHIATRY [facility] IN Mar 10, 2021 10:00 AM AMBULATORY - MEDICINE MATIAS MOYA [facility] Mar 16, 2021 11:00 AM AMBULATORY - MEDICINE [facility] Mar 24, 2021 09:30 AM AMBULATORY - PSYCHIATRY [facility] Apr 22, 2021 03:15 PM AMBULATORY - MEDICINE [facility] Apr 23, 2021 02:30 PM AMBULATORY - MEDICINE [facility] Apr 27, 2021 07:30 AM AMBULATORY - PSYCHIATRY [facility] Apr 29, 2021 02:00 PM AMBULATORY - MEDICINE MATIAS MOYA [facility] Apr 29, 2021 02:30 PM AMBULATORY - MEDICINE [facility] Social History: Smoking Status [...] 09:40 AM CURRENT TOBACCO USER EDGAR CLARK [facility] Encounter Notes: All associated encounter notes This section contains the clinical notes associated to the Encounter. Date/Time Encounter Note(s) Provider Source Nov 04, 2020 03:30 PM NO SHOW NOTE: CHARISSE GARCIA [facility] LOCAL TITLE: NO SHOW NOTE STANDARD TITLE: NO SHOW NOTE DATE OF NOTE: NOV 04, 2020@15:30 ENTRY DATE: NOV 07, 2020@16:37:23 AUTHOR: CHARISSE GARCIA COSIGNER: URGENCY: STATUS: COMPLETED NO SHOW NOTE Has ADDENDA no show. please cancel and reschedule 2 months V VC or Tele if she prefers /elina/ Charisse CADET Nurse Practitioner Signed: 11/07/2020 16:38 11/09/2020 ADDENDUM STATUS: COMPLETED recieved ER dc summary from [facility], DOS is 2-20-2 1. issue, high BS of 643. per vet, ate a strawberry empana da filled with cream and believes this is the cause fwd to pcp for review, [facility] dc summary given fo denzel review. /elina/ VERÓNICA FISH RN Signed: 11/09/2020 08:49 Receipt Acknowledged By: 11/22/2020 10:40 /elina/ Charisse CADET Nurse Practitioner 11/22/2020 ADDENDUM STATUS: COMPLETED please cancel tele visit 11/04/2020 no show Please reschedule FTF in November if possible /elina/ Charisse CADET Nurse Practitioner Signed: 11/22/2020 10:42 Receipt Acknowledged By: 12/09/2020 16:16 /elina/ GIULIANO NEGRON 02/05/2021 ADDENDUM STATUS: COMPLETED fwd to [facility]. vet need pap reminder comple te and is past due for recall/november/ with flabs. thanks /elina/ VERÓNICA FISH RN Signed: 02/05/2021 09:43 Receipt Acknowledged By: * AWAITING SIGNATURE * GIULIANO GAMINO
--- OUTSIDE RECORDS SUMMARY | 2021-09-20 19:16 | External Medical Summary | Encounter Summary ---
:1980 Author Organization Department [facility] Address [address] [place] [address] Care Team Providers Name Role Phone CHARISSE GARCIA Primary Care Provider Unavailable Selected Encounter This section includes the information on record at CT for the Encounter. Date/Time Encounter Type Encounter Description Reason Provider Source Nov 07, 2020 10:00 Outpatient Encounter COMMUNITY CARE PM CONSULT IHE Encounter Template Text not used by CT Plan of Treatment: Future Appointments (+ 6 [...] 09, 2021 11:15 AM AMBULATORY - MEDICINE [facility] Feb 16, 2021 02:30 PM AMBULATORY - MEDICINE [facility] Feb 18, 2021 11:00 AM AMBULATORY - PSYCHIATRY [facility] Feb 23, 2021 02:00 PM AMBULATORY - MEDICINE [facility] Mar 05, 2021 10:30 AM AMBULATORY - MEDICINE [facility] Mar 10, 2021 09:30 AM AMBULATORY - PSYCHIATRY [facility] IN Mar 10, 2021 10:00 AM AMBULATORY - MEDICINE [facility] MOYA [facility] Mar 16, 2021 11:00 AM AMBULATORY - MEDICINE [facility] Mar 24, 2021 09:30 AM AMBULATORY - PSYCHIATRY [facility] IN Apr 22, 2021 03:15 PM AMBULATORY - MEDICINE [facility] Apr 23, 2021 02:30 PM AMBULATORY - MEDICINE [facility] Apr 27, 2021 07:30 AM AMBULATORY - PSYCHIATRY [facility] Apr 29, 2021 02:00 PM AMBULATORY - MEDICINE MATIAS OMYA [facility] Apr 29, 2021 02:30 PM AMBULATORY - MEDICINE [facility] Social History: Smoking Status (Most [...] TOBACCO USER [facility]GAR CLARK [facility] Encounter Notes: All associated encounter notes This section contains the clinical notes associated to the Encounter. Date/Time Encounter Note(s) Provider Source Nov 07, 2020 10:00 PM NONVA NOTE: MINI HARMAN LOCAL TITLE: COMMUNITY CARE COORDINATION PLAN [facility] STANDARD TITLE: NONVA NOTE DATE OF NOTE: NOV 07, 2020@22:00 ENTRY DATE: NOV 10, 2020@08:26:15 AUTHOR: MINI HARMAN EXP COSIGNER: URGENCY: STATUS: COMPLETED COMMUNITY CARE COORDINATION PLAN Has ADDEND A self-presented to community emergency fa cility Emergency Notification Intake Date Presenting to the Facility: Oct @ 2 200 [facility] Hospital Name: Hospital: [facility] Address: [address] [place] [address] City: [place] State: [place] Zip Code: [address] Chief complaint: BLOOD SUGAR ISSUE Patient Admitted? Unknown Community Facility Point of Contact: Portal Name: Mariam Martinez / Provider Email: [email or web address] Notification Date: 11/07/20 @ 2241 Notification ID: [id number] Status: Closed - Approved for 1702 Date Closed: 11/09/20 /elina/ MINI NEGRON Signed: 11/10/2020 08:29 Receipt Acknowledged By: 11/10/2020 09:32 /es/ VERÓNICA FISH RN 11/22/2020 11:46 /es/ Charisse CADET Nurse Practitioner 11/25/2020 ADDENDUM STATUS: COMPLETED No ED records received for this DOS after 3 atte mpts made on 11/11, 11/16, 11/20; and not found scanned in [facility] Clinical review. /elina/ MINI NEGRON Signed: 11/25/2020 09:28 Receipt Acknowledged By: 11/25/2020 11:54 /es/ MIGUEL KINGSLEY LPN for VERÓNICA FISH 12/21/2020 ADDENDUM STATUS: COMPLETED [facility] Scanned Document - Addendum. SCANNED DOCUMENT SIGNATURE NOT REQUIRED Electronically Filed: 12/21/2020 by: LADAN HINES [facility]
--- OUTSIDE RECORDS SUMMARY | 2021-09-20 19:16 | External Medical Summary | Encounter Summary ---
:1980 Author Organization Department [facility] Address [address] [place] [address] Care Team Providers Name Role Phone CHARISSE GARCIA Primary Care Provider Unavailable Selected Encounter This section includes the information on record at [place] for the Encounter. Date/Time Encounter Type Encounter Description Reason Provider Source Nov 04, 2020 03:30 Outpatient Encounter TELEPHONE PRIMARY PM CARE IHE Encounter Template Text not used by MI Plan of Treatment: Future Appointments (+ 6 months) and Future Tests (+/- 45 days) The Plan of Treatment section includes future care activities for the patient from all MI treatmentfacilities. This section includes future appointments and future orders which are active, pending orscheduled.Future Appointments This section includes appointments that were scheduled to occur 6 months from the date of the Encounter, up to a maximum of 20 appointments. The data comes from all MI treatment facilities. Appointment Date/Time Appointment Type Appointment Facili ty Name February 09, 2021 11:15 AM AMBULATORY - [facility]ICINE [facility] Feb 16, 2021 02:30 PM AMBULATORY - MEDICINE [facility] Feb 18, 2021 11:00 AM AMBULATORY - PSYCHIATRY [facility] Feb 23, 2021 02:00 PM AMBULATORY - MEDICINE [facility] Mar 05, 2021 10:30 AM AMBULATORY - MEDICINE [facility] Mar 10, 2021 09:30 AM AMBULATORY - PSYCHIATRY [facility] IN Mar 10, 2021 10:00 AM AMBULATORY - MEDICINE MATIAS MOYA [facility] Mar 16, 2021 11:00 AM AMBULATORY - MEDICINE [facility] Mar 24, 2021 09:30 AM AMBULATORY - PSYCHIATRY [facility] Apr 22, 2021 03:15 PM AMBULATORY - MEDICINE [facility] Apr 23, 2021 02:30 PM AMBULATORY - MEDICINE [facility] Apr 27, 2021 07:30 AM AMBULATORY - PSYCHIATRY [facility] Apr 29, 2021 02:00 PM AMBULATORY - MEDICINE MATIAS MOYA [facility] Apr 29, 2021 02:30 PM AMBULATORY - MEDICINE [facility] Social History: Smoking Status (Most current) and Tobacco Use (All prior to encounter date) This section includes the most current, and the historical, smoking and tobacco-related health factors from the MI facility where the Encounter took place.Current Smoking Status This section includes the most current smoking, or tobacco-related health factor, from the MI facility where the Encounter took place. Date/Time Current Smoking Status Comment Facility Jul 25, 2019 01:50 PM VA-TOBACCO USE REWARDS CONSULTANT NO [facility] Tobacco Use History This section includes a history of the smoking, or tobacco- related health factors, that were collected on or before the date of the Encounter. The data comes from the [place] facility where the Encounter took place. Date/Time Smoking Status/Tobacco Use Comment [facility] Jul 25, 2019 01:50 PM VA-TOBACCO USE > 15 LESS L [facility] THAN 30 YEARS Jul 25, 2019 01:50 PM VA-TOBACCO USE ADVICE [facility] Jul 25, 2019 01:50 PM VA-TOBACCO USE REWARDS CONSULTANT NO [facility] Jul 25, 2019 01:50 PM VA-TOBACCO USE MED NOTIFY [facility] PROVIDER Jul 25, 2019 01:50 PM VA-TOBACCO USER EVERY DAY [facility] Jul 09, 2018 03:00 PM VA-TOBACCO USE > 15 LESS L [facility] THAN 30 YEARS Jul 09, 2018 03:00 PM VA-TOBACCO USE ADVICE [facility] Jul 09, 2018 03:00 PM VA-TOBACCO USE REWARDS CONSULTANT NO [facility] Jul 09, 2018 03:00 PM VA-TOBACCO USE MED NO [facility] Jul 09, 2018 03:00 PM VA-TOBACCO USE WI 30 MIN L [facility] Jul 09, 2018 03:00 PM VA-TOBACCO USER EVERY DAY [facility] Jan 10, 2018 12:55 PM [facility]ACCO MEDICATION [facility] Sep 19, 2017 09:33 AM CURRENT TOBACCO USER [facility] Sep 19, 2017 09:33 AM TOBACCO SCREEN COMPLETED L [facility] No, not willing to quit now Aug 12, 2016 01:53 PM CURRENT TOBACCO USER [facility] Aug 12, 2016 01:53 PM TOBACCO MEDICATION [place] [facility] REFERRAL MarlenBianka CADET Aug 12, 2016 01:53 PM TOBACCO SCREEN COMPLETED [facility] Yes, willing to quit now May 30, 2013 11:04 AM LIFETIME NON-USER OF [facility] TOBACCO Feb 22, 2012 09:19 AM CURRENT TOBACCO USER [facility] Feb 22, 2012 09:19 AM TOBACCO SCREEN COMPLETED [facility] No, not willing to quit now Mar 07, 2011 11:32 AM TOBACCO MEDICATION [facility] [facility] INTERVENTION Feb 25, 2011 10:38 AM CURRENT TOBACCO USER Severity= MINIMAL ANA PAULA MORENO [facility] Feb 25, 2011 10:38 AM TOBACCO MEDICATION Severity= MINIMAL [facility] HALEY Feb 25, 2011 10:38 AM TOBACCO SCREEN COMPLETED Severity= MINIMA Ana [facility] Yes, willing to quit now Sep 27, 2010 11:38 AM TOBACCO MEDICATION [place] [facility] INTERVENTION Sep 27, 2010 11:38 AM TOBACCO MEDICATION ORDERED [facility] Jan 04, 2010 10:28 AM CURRENT TOBACCO USER [facility] Jan 04, 2010 10:28 AM TOBACCO MEDICATION [place] [facility] INTERVENTION Jan 04, 2010 10:28 AM TOBACCO MEDICATION ORDERED [facility] Jan 04, 2010 10:28 AM TOBACCO MEDICATION [place] [facility] CANELA
--- OUTSIDE RECORDS SUMMARY | 2021-09-20 19:17 | External Medical Summary | Encounter Summary ---
:1980 Author Organization Department of [facility] Address [address] [place] [address] Care Team Providers Name Role Phone CHARISSE GARCIA Primary Care Provider Unavailable Selected Encounter This section includes the information on record at [place] for the Encounter. Date/Time Encounter Type Encounter Description Reason Provider Source Oct 16, 2020 07:35 Outpatient Encounter COMMUNITY CARE PM CONSULT IHE Encounter Template Text not used by [place] Plan of Treatment: Future Appointments (+ 6 months) and Future Tests (+/- 45 days) The Plan of Treatment section includes future care activities for the patient from all [place] treatmentfacilities. This section includes future appointments and future orders which are active, pending orscheduled.Future Appointments This section includes appointments that were scheduled to occur 6 months from the date of the Encounter, up to a maximum of 20 appointments. The data comes from all [place] treatment facilities. Appointment Date/Time Appointment Type Appointment Facili ty Name Nov 04, 2020 03:30 PM AMBULATORY - MEDICINE [facility] February 09, 2021 11:15 AM AMBULATORY - MEDICINE [facility] Feb 16, 2021 02:30 PM AMBULATORY - MEDICINE [facility] Feb 18, 2021 11:00 AM AMBULAT[facility] - PS[facility]IATRY [facility] Feb 23, 2021 02:00 PM AMBULATORY - MEDICINE [facility] Mar 05, 2021 10:30 AM AMBULATORY - MEDICINE [facility] Mar 10, 2021 09:30 AM AMBULATORY - PSYCHIATRY [facility] Mar 10, 2021 10:00 AM AMBULATORY - MEDICINE MATIAS MOYA [facility] Mar 16, 2021 11:00 AM AMBULATORY - MEDICINE [facility] Mar 24, 2021 09:30 AM AMBULATORY - PSYCHIATRY [facility] Social History: Smoking Status (Most current) and Tobacco Use (All prior to encounter date) This section includes the most current, and the historical, smoking and tobacco-related health factors from the [place] facility where the Encounter took place.Current Smoking Status This section includes the most current smoking, or tobacco-related health factor, from the [place] facility where the Encounter took place. Date/Time Current Smoking Status Comment Facility Jan 07, 2009 09:40 AM CURRENT TOBACCO USER EDGAR CLARK [facility] Encounter Notes: All associated encounter notes This section contains the clinical notes associated to the Encounter. Date/Time Encounter Note(s) Provider Source Oct 16, 2020 07:35 PM NONVA NOTE: MINI HARMAN LOCAL TITLE: COMMUNITY CARE COORDINATION PLAN [facility] STANDARD TITLE: NONVA NOTE DATE OF NOTE: OCT 16, 2020@19:35 ENTRY DATE: OCT 22, 2020@13:49:32 AUTHOR: MINI HARMAN EXP COSIGNER: URGENCY: STATUS: COMPLETED COMMUNITY CARE COORDINATION PLAN Has ADDEND A self-presented to community emergency fa cility Emergency Notification Intake Date Presenting to the Facility: Sep @ 1 935 [facility] Name: Hospital: [facility] Address: [address] [place] [address] City: [place] State: [place] Zip Code: [address] Primary Diagnosis: S69.91XA - Unspecified injury of right wrist, hand and finger(s), initial encounter Patient Admitted? No Community Facility Point of Contact: Phone Name: Candi Whitley [phone] Provider Email: [email or web address] Notification Date: 10/22/20 @ 1151 Notification ID: [id number] Status: Closed - Submit for 72 Hours Met: No Prudent Layperson: No Date Closed: 10/22/20 /tammie NEGRON Signed: 10/22/2020 13:54 Receipt Acknowledged By: 10/22/2020 14:10 /elina/ VERÓNICA FISH RN 10/25/2020 23:00 /tammie CADET Nurse Practitioner 10/25/2020 ADDENDUM STATUS: COMPLETED Per ER 10/16/2019 [place] no te vet punched door with right ulnar wrist possible hairline fracture or tiny ch ip base of 5th metacarpal lateral portion. Plan vet was placed in hand spint to be referred to Dr Loaiza if continued pain swelling. Please call vet and assess status and if needs r hiram /elina/ Charisse CADET Nurse Practitioner Signed: 10/25/2020 23:04 Receipt Acknowledged By: 10/26/2020 08:48 /elina/ VERÓNICA FISH RN 10/26/2020 ADDENDUM STATUS: COMPLETED fwd msa. please schedule a ncm tele appt to discuss if ne eds consult placed to see dr loaiza. thanks /tammie FISH RN Signed: 10/26/2020 08:51 Receipt Acknowledged By: * AWAITING SIGNATURE * GIULIANO GAMINO
--- OUTSIDE RECORDS SUMMARY | 2021-09-20 19:28 | External Medical Summary | Encounter Summary ---
:1980 Author Organization Department [facility] Address [address] [place] [address] Care Team Providers Name Role Phone CHARISSE GARCIA Primary Care Provider Unavailable Selected Encounter This section includes the information on record at [place] for the Encounter. Date/Time Encounter Type Encounter Description Reason Provider Source Jul 08, 2021 09:31 Outpatient Encounter COMMUNITY CARE AM CONSULT IHE Encounter Template Text not used by [place] Plan of Treatment: Future Appointments (+ 6 months) and Future Tests (+/- 45 days) The Plan of Treatment section includes future care activities for the patient from all [place] treatmentfacilities. This section includes future appointments and future orders which are active, pending orscheduled.Future Appointments This section includes appointments that were scheduled to occur 6 months from the date of the Encounter, up to a maximum of 20 appointments. The data comes from all [place] treatment facilities. Appointment Date/Time Appointment Type Appointment Facili ty Name Jul 15, 2021 03:00 PM AMBULATORY - MEDICINE [facility] Jul 26, 2021 09:00 AM AMBULATORY - MEDICINE [facility] Aug 04, 2021 01:00 PM AMBULATORY - MEDICINE [facility] Aug 05, 2021 01:20 PM AMBULATORY - MEDICINE MATIAS MOYA [facility] Aug 06, 2021 08:15 AM AMBULATORY - MEDICINE [facility] Aug 10, 2021 03:30 PM AMBULATORY - MEDICINE [facility] Aug 11, 2021 11:10 AM AMBULATORY - NONE MATIAS STEWARD [facility] Aug 17, 2021 03:00 PM AMBULATORY - MEDICINE [facility] Aug 24, 2021 02:00 PM AMBULATORY - NONE MATIAS STEWARD [facility] Aug 25, 2021 01:00 PM AMBULATORY - MEDICINE [facility] Sep 20, 2021 09:00 AM [facility] Oct 01, 2021 02:00 PM AMBULATORY - MEDICINE MATIAS MOYA [facility] Oct 01, 2021 03:00 PM AMBULATORY - NONE [facility] MEDICAL C ENTER Active, Pending, and [...] the Encounter. The data comes from all [place] treatment facilities. Test Date/Time Test Type Test Details Facility Name Jul 26, 2021 10:07 PM Consult Order COMMUNITY CARE-NEUROSURGER Y [facility] Cons Authorization Rep's Choice Aug 15, 2021 06:44 PM Consult Order COMMUNITY CARE-RADIOLOGY L [facility] Cons Authorization Rep's Choice Aug 15, 2021 06:44 PM Consult Order COMMUNITY CARE-PHYSICAL LE [facility] THERAP[facility] Cons Authorization Rep's Choice Lab Results: +/- 30 days of the encounter This section includes the Chemistry and Hematology Lab Results on record with [place] for the patient. Radiology Reports and Pathology Reports are provided separately, in subsequent sections.Lab Results This section contains the Chemistry/Hematology Results that were resulted 30 days before or 30 daysafter the date of the Encounter. Date/Time Source Result Type Result - Unit Interpretation Reference Range Comment Aug 06, 2021 MATIAS Perera MICROALBUMIN/CREATININE PANEL S pecimen Type: URINE 08:14 AM [facility] Comment: CREATI NINE, URINE reference ranges apply to first morning void. Ordering Provid er: CHARISSE GARCIA Report Released Date/Time: May 19, 2021 08:12 PM Reporting Lab: MATIAS Perera [address] [place] [address] Performing Lab: MATIAS Perera [address] [place] [address] CREATININE, URINE 81.1 mg/dL 29-226 MICROALBUMIN (QUANT) <1.2 mg/dL MICROALBUMIN/CREATININE RATIO <14.8 mg/gCR 0-30 Aug 06, 2021 MATIAS Perera COMPREHENSIVE METABOLIC Specime n Type: SERUM 08:14 AM [facility] PANEL Comment: LDL Di rect Adult Reference Range: Optimal <100 mg/dL Near optimal/above optimal 100-129 mg/dL Borderline high 130- 159 mg/dL High 160-189 mg/dL Very High 190 mg/dL Note that non-fasting results may be slightly lower than fasting results. Ordering Provid er: CHARISSE GARCIA Report Released Date/Time: May 19, 2021 08:12 PM Reporting Lab: MATIAS CLARK [address] [place] [address] Performing Lab: MATIAS Perera [place] [place] [address] GLUCOSE 218 mg/dL H 71-109 BUN/UREA (BLOOD UREA NITROGEN) 20 mg/dL 7-23 CREATININE, SERUM 0.8 mg/dL .5-1 SODIUM 140 mmol/L 131-142 POTASSIUM 4.3 mmol/L 3.6-5.4 CHLORIDE 106 mmol/L 95-108 CARBON DIOXIDE 22 mmol/L 21-32 CALCIUM 9.2 mg/dL 8.4-10.5 TOTAL PROTEIN 6.8 g/dL 5.8-7.9 ALBUMIN 4.4 g/dL 3.8-5.2 GLOBULIN 2.4 g/dL 1.5-3.2 AST/SGOT 26 U/L 14-44 ALT/SGPT 24 U/L 9-57 ALKALINE PHOSPHATASE 89 U/L 45-129 TOTAL BILIRUBIN 0.3 mg/dL 0.2-1.3 GFR ESTIMATION 79.0 mL/min/BSA >60 ANION GAP 16 mmol/L 7-21 GFR ESTIMATION (CKD-EPI) >90 mL/Min/BSA >90 Aug 06, 2021 MATIAS CLARK CBC & MORPHOLOGY (WITH Angi parra Type: BLOOD 08:14 AM [facility] DIFF) No comment enter ed. Ordering Provid er: CHARISSE GARCIA Report Released Date/Time: May 19, 2021 08:12 PM Reporting Lab: MATIAS CLARK [address] [address] [place] [address] Performing Lab: MATIAS CLARK [address] [address] [place] [address] WBC (TOTAL WBC COUNT) 6.7 K/L 3.0-10.6 RBC 4.55 M/L 3.86-5.70 HEMOGLOBIN 13.8 g/dL 11.8-17.1 HCT 42.7 % 36-51 MCV 93.8 fL 81-102 MCH 30.3 pg 27-31 MCHC 32.3 g/dL 32-36 PLT 274 K/L 150-400 RDW 12.9 % 11.2-16.2 NEUT % 60.9 % 44-74 LYMP % 26.4 % 15-42 MONO % 7.9 % 4-13 EOS % 3.6 % 0-7 BASO % 0.9 % 0-2 NEUTROPHILS, ABSOLUTE 4.1 K/L 1.2-7.0 LYMPHOCYTES, ABSOLUTE 1.8 K/L 0.6-3.4 MONOCYTES, ABSOLUTE 0.5 K/L 0.2-1.0 EOSINOPHILS, ABSOLUTE 0.2 K/L 0.0-0.5 BASOPHILS, ABSOLUTE 0.1 K/L 0.0-0.2 IMMATURE GRANULOCYTE % 0.3 % 0-0.9 IMMATURE GRANULOCYTES, ABSOLUTE 0.02 K/L 0-0.07 Aug 06, 2021 MATIAS Perera [place] THYROID STIMULATING Spec imen Type: SERUM 08:14 AM [facility] HORMONE Comment: LDL Di rect Adult Reference Range: Optimal <100 mg/dL Near optimal/above optimal 100-129 mg/dL Borderline high 130-159 mg/dL High 160-189 mg/dL Very High 190 mg/dL Note that non-fasting results may be slightly lower than fasting results. Ordering Provid er: CHARISSE GARCIA Report Released Date/Time: May 19, 2021 08:12 PM Reporting Lab: MATIAS STEWARD[address] [place] [address] Performing Lab: MATIAS STEWARD[address] [place] [address] THYROID STIMULATING HORMONE 1.89 IU/mL 0.300-4.25 Aug 06, 2021 08:14 MATIAS CLARK LIPID PANEL Speci men Type: SERUM AM [facility] Comment: LDL Di rect Adult Reference Range: Optimal <100 mg/dL Near optimal/above optimal 100-129 mg/dL Borderline high 130-159 mg/dL High 160-189 mg/dL Very High 190 mg/dL Note that non-fasting results may be slightly lower than fasting results. Ordering Provid er: CHARISSE GARCIA Report Released Date/Time: May 19, 2021 08:12 PM Reporting Lab: MATIAS CLARK [address] [address] [place] [address] Performing Lab: MAT[place]AS [address] [address] [place] [address] CHOLESTEROL 179 mg/dL <199 TRIGLYCERIDE 335 mg/dL H <149 HDL CHOLESTEROL 41 mg/dL >40 NON-HDL CHOLESTEROL 138 mg/dL <130 LDL, DIRECT 89 mg/dL 0-129 Aug 06, 2021 08:14 MATIAS CLARK HEMOGLOBIN A1C Speci men Type: BLOOD AM [facility] Comment: Target A1C values should be individualized. [...] Provid er: CHARISSE GARCIA Report Released Date/Time: May 19, 2021 08:12 PM Reporting Lab: MATIAS CLARK [address] [place] [address] Performing Lab: [place] [address] [place] [address] HEMOGLOBIN A1C 12.5 % H 0-5.6 Social History: Smoking Status (Most current) and Tobacco Use (All prior to encounter date) This section includes the most current, and the historical, smoking and tobacco-related health factors from the [place] facility where the Encounter took place.Current Smoking Status This section includes the most current smoking, or tobacco-related health factor, from the [place] facility where the Encounter took place. Date/Time Current Smoking Status Comment Facility Jan 07, 2009 09:40 AM CURRENT TOBACCO USER EDGAR Perera [facility] Encounter Notes: All associated encounter notes This section contains the clinical notes associated to the Encounter. Date/Time Encounter Note(s) Provider Source Jul 08, 2021 09:31 ADMINISTRATIVE NOTE: JENSEN ANN AM LOCAL TITLE: ADMINISTRATIVE NOTE [facility] STANDARD TITLE: ADMINISTRATIVE NOTE DATE OF NOTE: JUL 08, 2021@09:31 ENTRY DATE: JUL 08, 2021@09:31:44 AUTHOR: JENSEN ANN EXP COSIGNER: URGENCY: STATUS: COMPLETED ADMINISTRATIVE NOTE Has ADDENDA Call placed to for scheduling with [facility] Pharm D [facility] Tele [employer] BPC ARCHITECT AM [facility] Starbuck Team. declined scheduling. rep orts that she is currently sick with a tooth infection. Epsom also very concerned abo ut her MRI results. Epsom reported that she's rather see the provider she saw (Barry Doss) because he was "Fricking Amazing." Explained to nigel thomas that she is welcome to fill out a change of provider request if she desires. Explained I would contact alfie dias for direction on the follow up result of her MRI. /es/ D MEHNAZ ANN MSA Signed: 07/08/2021 09:34 Receipt Acknowledged By: 07/08/2021 09:48 /es/ VERÓNICA FISH RN * AWAITING SIGNATURE * SUKHDEV QUINONES 07/08/2021 ADDENDUM STATUS: COMPLETED fwd to irma doss for review/action MRI results recieved and given to pcp for review and action. /elina/ VERÓNICA FISH RN Signed: 07/08/2021 09:49 Receipt Acknowledged By: * AWAITING SIGNATURE * BARRY DOSS
--- OUTSIDE RECORDS SUMMARY | 2021-09-20 19:28 | External Medical Summary | Encounter Summary ---
:[address] [facility] Address [address] [place] [address] Care Team Providers Name Role Phone CHARISSE GARCIA Primary Care Provider Unavailable Selected Encounter This section includes the information on record at [place] for the Encounter. Date/Time Encounter Type Encounter Description Reason Provider Source Jul 07, 2021 12:42 Outpatient Encounter PRIMARY CARE/MEDICINE PM IHE Encounter [...] 15, 2021 03:00 PM AMBULATORY - MEDICINE [facility] IC Jul 26, 2021 09:00 AM AMBULATORY - MEDICINE [facility] IC Aug 04, 2021 01:00 PM AMBULATORY - MEDICINE [facility] IC Aug 05, 2021 01:20 PM AMBULATORY - MEDICINE MATIAS MOYA [facility] Aug 06, 2021 08:15 AM AMBULATORY - MEDICINE [facility] CL[facility] IC Aug 10, 2021 03:30 PM AMBULATORY - MEDICINE [facility] CL[facility] IC Aug 11, 2021 11:10 AM AMBULATORY - NONE [facility] Aug 17, 2021 03:00 PM AMBULATORY - MEDICINE [facility] CL[facility] IC Aug 24, 2021 02:00 PM AMBULATORY - NONE MATIAS STEWARD [facility] Aug 25, 2021 01:00 PM AMBULATORY - MEDICINE [facility] IC Sep 20, 2021 09:00 AM AMBULATORY - NONE MATIAS STEWARD [facility] Oct 01, 2021 02:00 PM AMBULATORY - MEDICINE MATIAS MOYA [facility] Oct 01, 2021 03:00 PM AMBULATORY - NONE [facility] MEDICAL C ENTER Active, Pending, and [...] 10:07 PM Consult Order COMMUNITY CARE-NEUROSURGER Y [facility] Cons Automobile Rental Agent's Choice Aug 15, 2021 06:44 PM Consult Order COMMUNITY CARE-RADIOLOGY L [facility] Cons Automobile Rental Agent's Choice Aug 15, 2021 06:44 PM Consult Order COMMUNITY CARE-PHYSICAL LE [facility] THERAPY Cons Automobile Rental Agent's Choice Lab Results: +/- 30 days of [...] PANEL S pecimen Type: URINE 08:14 AM [facility] Comment: CREATI NINE, URINE reference ranges apply to first morning void. Ordering Provid er: CHARISSE GARCIA Report Released Date/Time: May 19, 2021 08:12 PM Reporting Lab: MATIAS Perera [address] [place] [address] Performing Lab: MATIAS Perera [address] [place] [address] CREATININE, URINE 81.1 mg/dL 29-226 MICROALBUMIN (QUANT) <1.2 mg/dL MICROALBUMIN/CREATININE RATIO <14.8 mg/gCR 0-30 Aug 06, 2021 MATIAS ABBOTT METABOLIC Specime n Type: SERUM 08:14 AM [facility] PANEL Comment: LDL Di rect Adult Reference Range: Optimal <100 mg/dL Near optimal/above optimal 100-129 mg/dL Borderline high 130- 159 mg/dL High 160-189 mg/dL Very High 190 mg/dL Note that non-fasting results may be slightly lower than fasting results. Ordering Provid er: CHARISSE GARCIA Report Released Date/Time: May 19, 2021 08:12 PM Reporting Lab: MATIAS Perera [place] [address] [place] [address] Performing Lab: MATIAS Perera [address] [place] [address] GLUCOSE 218 mg/dL H 71-109 BUN/UREA (BLOOD [...] (WITH Angi parra Type: BLOOD 08:14 AM [facility] DIFF) No comment enter ed. Ordering Provid er: CHARISSE GARCIA Report Released Date/Time: May 19, 2021 08:12 PM Reporting Lab: MATIAS CLARK [address] [address] [place] [address] Performing Lab: MATIAS CLARK [address] [address] [place] [address] WBC (TOTAL WBC COUNT) 6.7 K/L 3.0-10.6 [...] K/L 0-0.07 Aug 06, 2021 MATIAS Perera [place] THYROID STIMULATING Spec imen Type: SERUM 08:14 AM [facility] HORMONE Comment: LDL Di rect Adult Reference Range: Optimal <100 mg/dL Near optimal/above optimal 100-129 mg/dL Borderline high 130-159 mg/dL High 160-189 mg/dL Very High 190 mg/dL Note that non-fasting results may be slightly lower than fasting results. Ordering Provid er: CHARISSE GARCIA Report Released Date/Time: May 19, 2021 08:12 PM Reporting Lab: MATIAS CLARK [address] [address] [place] [address] Performing Lab: MAT[place]AS [place]ARD[place] [address] [place] [address] THYROID STIMULATING HORMONE 1.89 IU/mL 0.300-4.25 Aug 06, 2021 08:14 MATIAS CLARK LIPID PANEL Speci men Type: SERUM AM [facility] Comment: LDL Di rect Adult Reference Range: Optimal <100 mg/dL Near optimal/above optimal 100-129 mg/dL Borderline high 130-159 mg/dL High 160-189 mg/dL Very High 190 mg/dL Note that non-fasting results may be slightly lower than fasting results. Ordering Provid er: CHARISSE GARCIA Report Released Date/Time: May 19, 2021 08:12 PM Reporting Lab: MATIAS CLARK [place] [address] [place] [address] Performing Lab: MATIAS [place] [address] [place] [address] CHOLESTEROL 179 mg/dL <199 TRIGLYCERIDE 335 mg/dL H <149 HDL CHOLESTEROL 41 mg/dL >40 NON-HDL CHOLESTEROL 138 mg/dL <130 LDL, DIRECT 89 mg/dL 0-129 Aug 06, 2021 08:14 MATIAS CLARK HEMOGLOBIN A1C Speci men Type: BLOOD AM [facility] Comment: Target A1C values should be individualized. [...] 2021 08:12 PM Reporting Lab: MATIAS CLARK [address] [address] [place] [address] Performing Lab: MATIAS [place]ARD[place] [address] [place] [address] HEMOGLOBIN A1C 12.5 % H 0-5.6 Social [...] 09:40 AM CURRENT TOBACCO USER EDGAR CLARK [facility] Encounter Notes: All associated encounter notes This section contains the clinical notes associated to the Encounter. Date/Time Encounter Note(s) Provider Source Jul 07, 2021 12:44 PM PHYSICIAN NOTE: MEY RAY [facility] LOCAL TITLE: OUTSIDE MEDICAL RECORD - SUMMARY STANDARD TITLE: PHYSICIAN NOTE DATE OF NOTE: JUL 07, 2021@12:44 ENTRY DATE: JUL 07, 2021@12:45:16 AUTHOR: MEY RAY EXP COSIGNER: URGENCY: STATUS: COMPLETED Date of Visit: 07/07/21 Outside Provider: Brody Fuller MD Location: [facility] Pulmonology Reason for Visit: 4 mo Follow-up /elina/ MEY JACOMEMobile Iron Signed: 07/07/2021 12:46 Jul 07, 2021 12:42 PM SCANNED NONVA NOTE: MEY RAY [facility] LOCAL TITLE: NON-VA IMAGING NOTE STANDARD TITLE: SCANNED NONVA NOTE DATE OF NOTE: JUL 07, 2021@12:42 ENTRY DATE: JUL 07, 2021@12:42:20 AUTHOR: MEY RAY EXP COSIGNER: URGENCY: STATUS: COMPLETED See scanned report in [facility]. Date of Visit: 07/07/21 Outside Provider: Mahesh Doss NP Location: [facility] MRI Lumbar spine W/O contrast /elina/ MEY Faria Miso Signed: 07/07/2021 12:44
--- OUTSIDE RECORDS SUMMARY | 2021-09-20 19:29 | External Medical Summary | Encounter Summary ---
:1980 Author Organization Department [facility] Address [address] [place] [address] Care Team Providers Name Role Phone CHARISSE GARCIA Primary Care Provider Unavailable Selected Encounter This section includes the information on record at MD for the Encounter. Date/Time Encounter Type Encounter Description Reason Provider Source Jul 09, 2021 10:00 Outpatient Encounter COMMUNITY CARE AM CONSULT IHE [...] 15, 2021 03:00 PM AMBULATORY - MEDICINE [facility] Jul 26, 2021 09:00 AM AMBULATORY - MEDICINE [facility] Aug 04, 2021 01:00 PM AMBULATORY - MEDICINE [facility] Aug 05, 2021 01:20 PM AMBULATORY - MEDICINE MATIAS MOAY [facility] Aug 06, 2021 08:15 AM AMBULATORY - MEDICINE [facility] Aug 10, 2021 03:30 PM AMBULATORY - MEDICINE [facility] Aug 11, 2021 11:10 AM AMBULATORY - NONE MATIAS STEWARD [facility] Aug 17, 2021 03:00 PM AMBULATORY - MEDICINE [facility] Aug 24, 2021 02:00 PM AMBULATORY - NONE MATIAS STEWARD [facility] Aug 25, 2021 01:00 PM AMBULATORY - MEDICINE [facility] Sep 20, 2021 09:00 AM [facility] NONE [facility] Oct 01, 2021 02:00 PM AMBULATORY - MEDICINE MATIAS MOYA [facility] Oct 01, 2021 03:00 PM AMBULATORY - NONE [facility] ENTER Active, Pending, and Scheduled [...] the Encounter. The data comes from all MD treatment facilities. Test Date/Time Test Type Test Details Facility Name Jul 26, 2021 10:07 PM Consult Order COMMUNITY CARE-NEUROSURGER Y [facility] Cons Automatic Bow Maker Machine Tender's Choice Aug 15, 2021 06:44 PM Consult Order COMMUNITY CARE-RADIOLOGY L [facility] Cons Automatic [employer] Machine Tender's Choice Aug 15, 2021 06:44 PM Consult Order COMMUNITY CARE-PHYSICAL [facility] THERAP[facility] Cons Automatic Bow Maker Machine Tender's Choice Lab Results: +/- 30 days of the encounter This section includes the Chemistry and Hematology Lab Results on record with MD for the patient. Radiology Reports and Pathology Reports are provided separately, in subsequent sections.Lab Results This section contains the Chemistry/Hematology Results that were resulted 30 days before or 30 daysafter the date of the Encounter. Date/Time Source Result Type Result - Unit Interpretation Reference Range Comment Aug 06, 2021 MATIAS Perera MICROALBUMIN/CREATININE PANEL S pecimen Type: URINE 08:14 AM [facility] Comment: CREATI NINE, URINE reference ranges apply to first morning void. Ordering Provid er: CHARISSE GARCIA Report Released Date/Time: May 19, 2021 08:12 PM Reporting Lab: MATIAS Perera [address] [place] [address] Performing Lab: MATIAS Perera [address] [place] [address] CREATININE, URINE 81.1 mg/dL 29-226 MICROALBUMIN (QUANT) <1.2 mg/dL MICROALBUMIN/CREATININE RATIO <14.8 mg/gCR 0-30 Aug 06, 2021 MATIAS Perera COMPREHENSIVE METABOLIC Specime n Type: SERUM 08:14 AM [facility] PANEL Comment: LDL Di rect Adult Reference Range: Optimal <100 mg/dL Near optimal/above optimal 100-129 mg/dL Borderline high 130- 159 mg/dL High 160-189 mg/dL Very High 190 mg/dL Note that non-fasting results may be slightly lower than fasting results. Ordering Provid er: CHARISSE GARCIA Report Released Date/Time: May 19, 2021 08:12 PM Reporting Lab: MATIAS CLARK [address] [place] [address] Performing Lab: MATIAS Perera [facility] [place] [address] GLUCOSE 218 mg/dL H 71-109 BUN/UREA (BLOOD [...] (WITH Angi parra Type: BLOOD 08:14 AM [facility] DIFF) No comment enter ed. Ordering Provid er: CHARISSE GARCIA Report Released Date/Time: May 19, 2021 08:12 PM Reporting Lab: MATIAS CLARK [place] [address] [place] [address] Performing Lab: MATIAS CLARK [place] [address] [place] [address] WBC (TOTAL WBC COUNT) 6.7 K/L 3.0-10.6 [...] K/L 0-0.07 Aug 06, 2021 MATIAS Perera [facility] THYROID STIMULATING Spec imen Type: SERUM 08:14 AM [facility] HORMONE Comment: LDL Di rect Adult Reference Range: Optimal <100 mg/dL Near optimal/above optimal 100-129 mg/dL Borderline high 130-159 mg/dL High 160-189 mg/dL Very High 190 mg/dL Note that non-fasting results may be slightly lower than fasting results. Ordering Provid er: CHARISSE GARCIA Report Released Date/Time: May 19, 2021 08:12 PM Reporting Lab: MATIAS STEWARD[address] [place] [address] Performing Lab: MATIAS STEWARD[address] [place] [address] THYROID STIMULATING HORMONE 1.89 IU/mL 0.300-4.25 Aug 06, 2021 08:14 MATIAS CLARK LIPID PANEL Speci men Type: SERUM AM [facility] Comment: LDL Di rect Adult Reference Range: Optimal <100 mg/dL Near optimal/above optimal 100-129 mg/dL Borderline high 130-159 mg/dL High 160-189 mg/dL Very High 190 mg/dL Note that non-fasting results may be slightly lower than fasting results. Ordering Provid er: CHARISSE GARCIA Report Released Date/Time: May 19, 2021 08:12 PM Reporting Lab: AMTIAS CLARK [place] [address] [place] [address] Performing Lab: [place]AS [place] [address] [place] [address] CHOLESTEROL 179 mg/dL <199 TRIGLYCERIDE 335 mg/dL H <149 HDL CHOLESTEROL 41 mg/dL >40 NON-HDL CHOLESTEROL 138 mg/dL <130 LDL, DIRECT 89 mg/dL 0-129 Aug 06, 2021 08:14 MATIAS CLARK HEMOGLOBIN A1C Speci men Type: BLOOD AM [facility] Comment: Target A1C values should be individualized. [...] 2021 08:12 PM Reporting Lab: MATIAS CLARK [address] [place] [address] Performing Lab: [place]AS [place] [address] [place] [address] HEMOGLOBIN A1C 12.5 % H 0-5.6 Social [...] Encounter. Date/Time Encounter Note(s) Provider Source Jul 09, 2021 10:00 AM NONVA NOTE: MINI HARMAN LOCAL TITLE: COMMUNITY CARE COORDINATION PLAN [facility] STANDARD TITLE: NONVA NOTE DATE OF NOTE: JUL 09, 2021@10:00 ENTRY DATE: JUL 12, 2021@11:10:39 AUTHOR: MINI HARMAN EXP COSIGNER: URGENCY: STATUS: COMPLETED COMMUNITY CARE COORDINATION PLAN Has ADDEND A self-presented to community emergency fa cility Emergency Notification Intake Date Presenting to the Facility: Jun @ 1 002 [facility] Name: Hospital: [facility] Address: [address] [place] [address] City: [place] [employer] State: [place] Zip Code: [address] Chief complaint: oral abscess Patient Admitted? Unknown Community Facility Point of Contact: Portal Name: Mariam Martinez / Provider Email: [email or web address] Notification Date: 07/09/21 @ 1019 Notification ID: [id number] Prudent Layperson: No Status: POM Review Date Sent for Review: 07/10/21 /elina/ MINI HARMAN Advanced Programs Director Signed: 07/12/2021 11:13 Receipt Acknowledged By: 07/12/2021 11:28 /es/ VERÓNICA FISH RN * AWAITING SIGNATURE * CHARISSE GARCIA 07/12/2021 ADDENDUM STATUS: COMPLETED fwd to [facility] please call vet to offer dhruv t with pcp marcia for follow up on above urgent care visit as well as 07/08/2021 ADDENDUM STATUS: COMPLETED PLEASE CONTACT AND INFORM HER OF THE RES ULTS NOTED ABOVE. NEXT STEP I WOULD RECOMMEND A REFERRAL TO SEE A CODE AND TEST CLERK. IF SHE'S AGREEABLE, THEN A REFERRAL FOR NEUROSURGERY CAN BE SUBMITTED FOR MY SIGNING. IF NOT, SHE THEN SHOULD BE SCHEDULED A F/UP APPT WITH PRIMARY PCP TO FURTHER DISCUSS THESE RESULTS & STEPS IN PLAN OF CARE. /es/ BARRY GALEAS Nurse Practitioner /es/ VERÓNICA FISH RN Signed: 07/12/2021 11:31 Receipt Acknowledged By: * AWAITING SIGNATURE * JENSEN ANN 07/12/2021 ADDENDUM STATUS: COMPLETED Patient presented to the ER with chief concern of right lower jaw pain. Was seen by dentist and plan was for extraction but due to increased pain, decreased ROM of jaw and submandibular swelling dentist referr ed patient to the ER for IV antibiotics. Blood glucose 581. WBC 12.5. Given IV fluios, re gular insulin and IV rocephin and clindamycin. Discharged home to follow up wi th PCP and Dentist ALIYAH for extraction. Records to [facility]. /es/ SANDY PHELPS Registered Nurse Signed: 07/12/2021 15:43
--- OUTSIDE RECORDS SUMMARY | 2021-09-20 19:30 | External Medical Summary | Encounter Summary ---
:[address] [facility] Address [address] [place] [address] Care Team Providers Name Role Phone CHARISSE GARCIA Primary Care Provider Unavailable Selected Encounter This section includes the information on record at [place] for the Encounter. Date/Time Encounter Type Encounter Description Reason Provider Source Sep 01, 2021 12:24 Outpatient Encounter ADMIN PAT ACTIVMICHELLE PM (MASNONCT) IHE Encounter Template Text not used [...] Date/Time Appointment Type Appointment Facili ty Name Sep 20, 2021 09:00 AM [facility]ORY - NONE [facility] Oct 01, 2021 02:00 PM AMBULATORY - MEDICINE MATIAS MOYA [facility] Oct 01, 2021 03:00 PM AMBULATORY - NONE [facility] ENTER Active, Pending, and Scheduled Orders This section includes a listing of several types of active, pending, and scheduled orders, including clinic medications orders, diagnostic test orders, procedure orders and consult orders; where the start date of the order is 45 days before the date of the Encounter or 45 days after the date of the Encounter. The data comes from all [place] treatment facilities. Test Date/Time Test Type Test Details Facility Name Jul 26, 2021 10:07 PM Consult Order COMMUNITY CARE-NEUROSURGER Dionicio BENÍTEZ [facility] Cons Wildlife Rehabilitator's Choice Aug 15, 2021 06:44 PM Consult Order COMMUNITY CARE-RADIOLOGY Ana MOSS [facility] Cons Wildlife Rehabilitator's Choice Aug 15, 2021 06:44 PM Consult Order [facility] Cons Wildlife Rehabilitator's Choice Aug 25, 2021 01:31 PM Consult Order INTER[facility]ILITY PH[facility]ACY [facility] ([facility]) Cons Wildlife Rehabilitator's Choice Lab Results: +/- 30 days of [...] PANEL S pecimen Type: URINE 08:14 AM [facility] Comment: CREATI NINE, URINE reference ranges apply to first morning void. Ordering Provid er: CHARISSE GARCIA Report Released Date/Time: May 19, 2021 08:12 PM Reporting Lab: MATIAS Perera [address] [place] [address] Performing Lab: MATIAS Perera [address] [place] [address] CREATININE, URINE 81.1 mg/dL 29-226 MICROALBUMIN (QUANT) <1.2 mg/dL MICROALBUMIN/CREATININE RATIO <14.8 mg/gCR 0-30 Aug 06, 2021 MATIAS Perera COMPREHENSIVE METABOLIC Specime n Type: SERUM 08:14 AM [facility] PANEL Comment: LDL Di rect Adult Reference Range: Optimal <100 mg/dL Near optimal/above optimal 100-129 mg/dL Borderline high 130- 159 mg/dL High 160-189 mg/dL Very High 190 mg/dL Note that non-fasting results may be slightly lower than fasting results. Ordering Provid er: CHARISSE GARCIA Report Released Date/Time: May 19, 2021 08:12 PM Reporting Lab: MATIAS CLARK [place] [address] [place] [address] Performing Lab: MATIAS CLARK [place] [address] [place] [address] GLUCOSE 218 mg/dL H 71-109 BUN/UREA (BLOOD [...] 2021 MATIAS CLARK CBC & MORPHOLOGY (WITH S fidel Type: BLOOD 08:14 AM [facility] DIFF) No comment enter ed. Ordering Provid er: CHARISSE GARCIA Report Released Date/Time: May 19, 2021 08:12 PM Reporting Lab: MATIAS CLARK [place] [address] [place] [address] Performing Lab: MATIAS CLARK [place] [address] [place] [address] WBC (TOTAL WBC COUNT) 6.7 K/L 3.0-10.6 [...] 0.02 K/L 0-0.07 Aug 06, 2021 MATIAS CLARK THYROID STIMULATING Spec imen Type: SERUM 08:14 AM [facility] HORMONE Comment: LDL Di rect Adult Reference Range: Optimal <100 mg/dL Near optimal/above optimal 100-129 mg/dL Borderline high 130-159 mg/dL High 160-189 mg/dL Very High 190 mg/dL Note that non-fasting results may be slightly lower than fasting results. Ordering Provid er: CHARISSE GARCIA Report Released Date/Time: May 19, 2021 08:12 PM Reporting Lab: MATIAS CLARK [place] [address] [place] [address] Performing Lab: MAT[place]AS [place]EVER[place] [address] [place] [address] THYROID STIMULATING HORMONE 1.89 IU/mL 0.300-4.25 Aug 06, 2021 08:14 MATIAS CLARK LIPID PANEL Speci men Type: SERUM AM [facility] Comment: LDL Di rect Adult Reference Range: Optimal <100 mg/dL Near optimal/above optimal 100-129 mg/dL Borderline high 130-159 mg/dL High 160-189 mg/dL Very High 190 mg/dL Note that non-fasting results may be slightly lower than fasting results. Ordering Provid er: CHARISSE GARCIA Report Released Date/Time: May 19, 2021 08:12 PM Reporting Lab: MATIAS STEWARD[address] [place] [address] Performing Lab: MATIAS CLARK [address] [place] [address] CHOLESTEROL 179 mg/dL <199 TRIGLYCERIDE 335 mg/dL H <149 HDL CHOLESTEROL 41 mg/dL >40 NON-HDL CHOLESTEROL 138 mg/dL <130 LDL, DIRECT 89 mg/dL 0-129 Aug 06, 2021 08:14 MATIAS GROVESWRIGHT HEMOGLOBIN A1C Speci men Type: BLOOD AM [facility] Comment: Target A1C values should be individualized. [...] 2021 08:12 PM Reporting Lab: MATIAS Perera [address] [address] Performing Lab: MATIAS Perera [address] [place] [address] HEMOGLOBIN A1C 12.5 % H 0-5.6 Encounter Notes: All associated encounter notes This section contains the clinical notes associated to the Encounter. Date/Time Encounter Note(s) Provider Source Sep 01, 2021 12:24 PM LETTERS: SHREYAS HUMPHRIES [facility] STAND[facility] TITLE: LETTERS DATE OF NOTE: SEP 01, 2021@12:24 ENTRY DATE: SEP 01, 2021@12:24:20 AUTHOR: SHREYAS HUMPHRIES EXP COSIGNER: URGENCY: STATUS: COMPLETED VISN20 [facility] Tele-Primary Care [facility] SEP 01, 2021 BARBARA PERERA [address] [place] [address], [address] Dear BARBARA PERERA, Thank you for scheduling a video pharmacy appoi ntment with Dr. González Gorman for your monthly follow-up. Your n ew appointment will be on 10/01/21 at 1400pm pst. Your [facility] video dhruv ointment link has been sent to your [employer] email account. If link does not work, your pharmacist will try to give you a call instead. Please have 1) All medications or complete medication list including non-VA medications,[id number], vitamins, and her bals 2) Home readings from your blood glucose and/or blood pressure meter available at the time of the appointment We will be more than happy to assist you at any time in getting your pharmacy appointment to rescheduled, cancelled, or other questions by calling [phone], extension [phone]. Thank you for your service. Respectfully, JAMIL UMANZOR CMAA [place] VISN-20 TELE-HEALTH [facility] SITE /es/ RYAN PORTILLO Signed: 09/01/2021 12:26
--- OUTSIDE RECORDS SUMMARY | 2021-09-20 19:35 | External Medical Summary | Encounter Summary ---
:1980 Author Care Team Providers Name Role Phone Terrance Clarke DDS Dentist [phone] Reason for Visit None recorded. Assessment and Plan 1. Loss of teeth due to extraction Discussion Note: None recorded.Patient educational handouts: No information available. Plan of Care Patient Instructions EXTRACTION After today: rinse 3-6 times per day wit h warm salt water Bite on gauze for at least an hour DO NOT smoke or use any tobacco products . Avoid anything that contains nicotine. DO NOT rinse, spit or exercise. Do not d rink hot liquids, alcohol or soda For excessive bleeding, fold a wet tea b ag in half and bite in it for an hour Rest, drink plenty of liquids and eat so ft foods Take medications as prescribed Reminders Provider Appointments Return to Office on or around 08/03/2022 Terrance Clarke DDS Lab None recorded. Referral None recorded. Procedures None recorded. Surgeries None recorded. Imaging None recorded. Medications Name Start Date acetazolamide ER 500 mg capsule,extended release Take 1 capsule twice a day by oral route. amoxicillin 500 mg capsule amoxicillin 500 mg tablet Take 1 tablet every 8 hours by oral route as directed for 7 days. amoxicillin 875 mg-potassium clavulanate 125 mg tablet Take 1 tablet every 12 hours by oral route as directe d for 10 days. clindamycin HCl 300 mg capsule duloxetine 30 mg capsule,delayed release Take 1 capsule every day by oral route. etodolac 500 mg tablet Take 1 tablet twice a day by oral route. fluoxetine 20 mg capsule Take 1 capsule every day by oral route. gabapentin Hair,Nails and Skin Vitamin tablet Take by oral route. loratadine 10 mg capsule Take by oral route. Novolog Flexpen U-100 Insulin Novolog Mix 70-30 FlexPen U-100 Insulin 100 unit/mL marie bcutaneous pen Inject by subcutaneous route. propranolol 40 mg tablet Take 1 tablet twice a day by oral route. rosuvastatin TRUEplus Diabetic Multivitamin Tylenol-Codeine #3 Vitamin D3 Notes: updated 07/05/21 no chnage 07/13/21 no change 08/03/2021 KM Medications Administered None recorded. Vitals Blood Pressure 132/87 mm[Hg] Results Lab Results None recorded. Allergies Code Code System Name Reaction Severity Onset 4821 RxNorm Glipizide Hives Moderate to Severe 6809 RxNorm Metformin Headache Severe Seasonale (91) Other Problems None recorded. Procedures None recorded. Vaccine List None recorded. Social History Tobacco Smoking Status Heavy Tobacco Smoker (1/2 pack per day) Have you had all your required Y vaccines including measles and the flu shot? Do you have high or low blood Y Notes: h igh pressure? Do you have a pacemaker or N artificial heart valve implant? Can you walk up a flight of Y stairs without stopping to rest? When was your last physical Notes: 20 years exam? How much tobacco do you chew? none Have you ever bled excessively N after being injured? Are you under a physician's Y care? Physician/Doctor's Name Carlie Leonard Are you HIV positive? If yes, N cd4 count Viral load Race/Ethnicity Polish/ Have you ever had surgery, N radiation treatment, or chemo therapy for a tumor, or any other condition? Do you have blood disorders, N such as anemia, leukemia? Are you passively exposed to Y smoke? Have you ever been treated for N osteoporosis? Are you or expect you N may be? Have you had any serious N illness or operation? Have you had any recent travel? Y Are you using any street drugs? N Do you or have you had TB? N Do you have any STD's? If yes, N what type? Have you ever taken oral or IV N bisphosphonates? Are you diabetic? If yes, what Y Notes: unsure of A1C- type? Last checked glucose? think high Have you ever had Hepatitis? If N yes, A, B, or C ([place])? Have you ever had Jaundice? Have you been treated for or N told you might have heart disease? Do you or have you ever used Never used electronic e-cigarettes or vape? cigarettes Is there anything we should N know about your mental health? Preferred Pharmacy [facility] Do you have any inflammatory Y disease such as arthritis? How many years have you smoked 30 tobacco? If the answer is yes do you N need to be connected to behavioral health services? Do you have any history of head N and/or neck radiation? Do you use marijuana? How much? N Is there anything else we N should know about your health? When was your last dental Notes: 4 yea rs cleaning? Do you or have you ever used Never used smokeless tobacco smokeless tobacco? Do you have asthma? N Hookah use? N Do you have artificial N joints/prosthesis? Do you consume alcoholic N beverages? Do you have epilepsy or seizure N disorders? Are you aware of any heart N murmurs? Functional Status Unknown. Past Encounters 07/09/2021 Loss of Teeth Due to Extraction Terrance Clarke, DDS: [address] [place] [phone], Ph. 07/05/2021 Toothache; Dental Abscess Harvey Gray, DDS: [address] [place] [phone], Ph. History of Present Illness None recorded. Review of Systems None recorded. Physical Exam None recorded.
--- OUTSIDE RECORDS SUMMARY | 2021-09-20 19:35 | External Medical Summary ---
:1980 Author Care Team Providers Name Role Phone TERRANCE CLARKE DDS Dentist [phone] Allergies Code Code System Name Reaction Severity Status Onset 4821 RxNorm Glipizide Hives Moderate to Severe Active 6809 RxNorm Metformin Headache Severe Active Seasonale (91) Other Active Medications Name Status Start Date Stop Date acetazolamide ER 500 mg capsule,extended release Active Not available Take 1 capsule twice a day by oral route. amoxicillin 500 mg capsule Active Not a vailable amoxicillin 500 mg tablet Active Not av ailable Take 1 tablet every 8 hours by oral route as directed for 7 day s. amoxicillin 875 mg-potassium clavulanate 125 mg tablet Active Not available atorvastatin 20 mg tablet Completed 2020 Take 1 tablet every day by oral route. clindamycin HCl 300 mg capsule Active N ot available duloxetine 30 mg capsule,delayed release Active Not available Take 1 capsule every day by oral route. etodolac 500 mg tablet Active Not avail able Take 1 tablet twice a day by oral route. fluoxetine 20 mg capsule Active Not elisa ilable Take 1 capsule every day by oral route. gabapentin Active Not available guaifenesin Completed 07/05/2021 Hair,Nails and Skin Vitamin tablet Active Not available Take by oral route. loratadine 10 mg capsule Active Not elisa ilable Take by oral route. Novolog Flexpen U-100 Insulin Active No t available Novolog Mix 70-30 FlexPen U-100 Insulin 100 unit/mL subcutaneous pen Active Not available Inject by subcutaneous route. oxybutynin Completed 07/05/2021 prednisone 20 mg tablet Completed 07/05/20 propranolol 40 mg tablet Active Not elisa ilable Take 1 tablet twice a day by oral route. rosuvastatin Active Not available TRUEplus Diabetic Multivitamin Active N ot available Tylenol-Codeine #3 Active Not available Vitamin D3 Active Not available Notes: updated 07/05/21 VH no chnage 07/13/21 VH no change 08/03/2021 KM Problems None recorded. Procedures None recorded. Results Lab Results None recorded. Past Encounters 09/14/2021 Terrance Clarke, DDS: [address], [place] [address], Ph. 08/03/2021 Preventive Dental Procedure Terrance Clarke, DDS: [address], [place] [address], Ph. 07/13/2021 Loss of Teeth Due to Extraction Terrance Clarke, DDS: [address], [place] [address], Ph. 07/09/2021 Loss of Teeth Due to Extraction Terrance Clarke, DDS: [address] [place] [address], Ph. 07/05/2021 Toothache; Dental Abscess Harvey Gray, DDS: [address] [place], [place] , Ph. Social History Tobacco Smoking Status Heavy Tobacco Smoker (1/2 pack per da y) Vaccine List None recorded. Plan of Care Patient Instructions [place] and floss 2-3 times daily Eat a balanced diet Limit soda/sports drinks consumption to lower your risk of tooth decay Recommend desensitizing toothpaste for s ensitivity Recommend OTC fluoride rinse (ACT or oth ers) Use a soft bristle toothbrush Follow up with your hygienist EXTRACTION After today: rinse 3-6 times per [...] so ft foods Take medications as prescribed EXTRACTION After today: rinse 3-6 times per [...] so ft foods Take medications as prescribed [place] and floss 2-3 times daily Eat a balanced diet Limit soda/sports drinks consumption to lower your risk of tooth decay Recommend desensitizing toothpaste for s ensitivity Recommend OTC fluoride rinse (ACT or oth ers) Use a soft bristle toothbrush Follow up with your hygienist Reminders Provider Appointments None recorded. Lab None recorded. Referral None recorded. Procedures None recorded. Surgeries None recorded. Imaging None recorded. Vitals 09/14/2021 10:00AM Extraction Blood Pressure 101/65 mm[Hg] 08/03/2021 09:45AM Adult Dental Exam Blood Pressure 103/53 mm[Hg] 07/13/2021 10:30AM Extraction Blood Pressure 125/82 mm[Hg] 07/09/2021 09:30AM Extraction Blood Pressure 132/87 mm[Hg] 07/05/2021 10:00AM Dental Exam/Limited Blood Pressure 178/96 mm[Hg] 12/04/2019 04:45PM Dental Exam/Limited Blood Pressure 122/74 mm[Hg] 04/19/2019 08:30AM Dental Exam/Limited Blood Pressure 91/55 mm[Hg] 04/19/2019 01:45PM Root Canal Blood Pressure 103/59 mm[Hg]
--- OUTSIDE RECORDS SUMMARY | 2021-09-20 19:35 | External Medical Summary | Encounter Summary ---
:1980 Author Care Team Providers Name Role Phone Terrance Clarke DDS Dentist [phone] Reason for Visit None recorded. Assessment and Plan 1. Toothache 2. Dental abscess amoxicillin 500 mg tablet Discussion Note: None recorded.Patient educational handouts: No information available. Plan of Care Patient Instructions [place] and floss 2-3 times daily Eat a balanced diet Limit soda/sports drinks consumption to lower your risk of tooth decay Recommend desensitizing toothpaste for s ensitivity Recommend OTC fluoride rinse (ACT or oth ers) Use a soft bristle toothbrush Follow up with your hygienist Reminders Provider Appointments Return to Office on [...] Tylenol-Codeine #3 Vitamin D3 Notes: updated 07/05/21 VH no chnage 07/13/21 VH no change 08/03/2021 KM Medications Administered None recorded. Vitals Blood Pressure 178/96 mm[Hg] Results Lab Results None recorded. Allergies [...] How much tobacco do you chew? none Are you under a physician's Y care? Have you ever bled excessively N after being injured? Physician/Doctor's Name Carlie Leonard Race/Ethnicity Bahraini/ Are you HIV positive? If yes, N cd4 count Viral load Have you ever had surgery, N radiation treatment, or chemo therapy for a tumor, or any other condition? Do you have blood disorders, N such as anemia, leukemia? Have you ever been treated for N osteoporosis? Are you passively exposed to Y smoke? Are you or expect you N may be? Have you had any serious N illness or operation? Have you had any recent travel? Y Are you using any street drugs? N Do you or have you had TB? N Have you ever taken oral or IV N bisphosphonates? Do you have any STD's? If yes, N what type? Are you diabetic? If yes, what Y Notes: unsure of A1C- type? Last checked glucose? think high Have you ever had Hepatitis? If N yes, A, B, or C ([place])? Have you ever had Jaundice? Have you been treated for or N told you might have heart disease? Do you or have you ever used Never used electronic e-cigarettes or vape? cigarettes Preferred Pharmacy [facility] Is there anything we should N know about your mental health? Do you have any inflammatory Y disease [...] N murmurs? Functional Status Unknown. Past Encounters 07/05/2021 Toothache; Dental Abscess Harvey Gray, DDS: [address] [place] [phone], Ph. History of Present Illness None recorded. Review of Systems None recorded. Physical Exam None recorded.
--- OUTSIDE RECORDS SUMMARY | 2021-09-20 19:35 | External Medical Summary ---
:1980 Author Care Team Providers Name Role Phone CHARISSE GARCIA [facility] Primary Care Provider [phone] Allergies Code Code System Name Reaction Severity Status Onset 841231 RxNorm Glucophage Active 6809 RxNorm Metformin Active Medications Name Status Start Date Stop Date acetazolamide ER 500 mg capsule,extended release Active Not available Take 2 capsules twice a day by oral route. atorvastatin 20 mg tablet Active Not av ailable Take 1 tablet every day by oral route. cetirizine 10 mg tablet Active Not avai lable Take 1 tablet every day by oral route. cyclobenzaprine 10 mg tablet Active Not available fluoxetine 20 mg tablet Active Not avai lable Take 4 tablets every day by oral route. gabapentin Active Not available Humulin 70/30 U-100 Insulin Active Not available 40 units in AM, 30 units in PM propranolol 40 mg tablet Active Not elisa ilable Take 1 tablet every day by oral route. Problems Name Status Onset Date Source Anaphylaxis Active 11/16/2017 Diabetes Mellitus Active Hyperlipidemia Active Depressive Disorder Active Migraine Active Allergy to Cat Dander Active Seasonal Allergic Rhinitis Active Allergy to Tree Nut Active Procedures Notes: wisdom teeth Results Lab Results None recorded. Past Encounters None recorded. Social History Tobacco Smoking Status Current Every Day Smoker Notes: 5-6 cigarettes per day for over 10 years Vaccine List None recorded. Plan of Care Reminders Provider Appointments None recorded. Lab None recorded. Referral None recorded. Procedures None recorded. Surgeries None recorded. Imaging None recorded. Vitals 06/04/2018 08:40AM SKIN TESTING Height Blood Pressure 5 ft 5.5 in 128/72 mm[Hg] 05/28/2018 08:00AM NEW PATIENT Height Weight BMI Blood Pressure 5 ft 5.5 in 204 lbs 33.4 kg/m2 128/72 mm[Hg]
--- OUTSIDE RECORDS SUMMARY | 2021-09-20 19:35 | External Medical Summary | Encounter Summary ---
:1980 Author Care Team Providers Name Role Phone Terrance Clarke DDS Dentist [phone] Reason for Visit None recorded. Assessment and [...] Medications Administered None recorded. Vitals Blood Pressure 125/82 mm[Hg] Results Lab Results None recorded. Allergies [...] being injured? Physician/Doctor's Name Carlie Leonard Race/Ethnicity Monegasque/ Are you HIV positive? If yes, N [...] If N yes, A, B, or C ([place])? Have you ever had Jaundice? Have you [...] N murmurs? Functional Status Unknown. Past Encounters 07/13/2021 Loss of Teeth Due to Extraction Terrance Clarke, DDS: [address] [place] [phone], Ph. 07/09/2021 Loss of Teeth Due to Extraction Terrance Clarke, DDS: [address] [place] [phone], Ph. 07/05/2021 Toothache; Dental Abscess Harvey Gray, DDS: [address] [place] [phone], Ph. History of Present Illness None recorded. Review of Systems None recorded. Physical Exam None recorded.
--- OUTSIDE RECORDS SUMMARY | 2021-09-20 19:35 | External Medical Summary ---
:1980 Author Care Team Providers Name Role Phone CHARISSE GARCIA [facility] Primary Care Provider [phone] Allergies Code Code System Name Reaction Severity Status Onset 4821 RxNorm Glipizide Active 6809 RxNorm Metformin Active Medications Name Status Start Date Stop Date acetaminophen Active Not available acetazolamide ER 500 mg capsule,extended release Active Not available Take 2 capsules twice a day by oral route. atorvastatin 20 mg tablet Active Not av ailable Take 1 tablet every day by oral route. Augmentin 875 mg-125 mg tablet Active N ot available Take 1 tablet every 12 hours by oral route. cetirizine 10 mg tablet Active Not avai lable Take 1 tablet every day by oral route. cyclobenzaprine 10 mg tablet Active Not available Take 1 tablet twice a day by oral route. fluconazole 150 mg tablet Active Not av ailable Take 1 tablet every 72 hours by oral route. fluoxetine 20 mg capsule Active Not elisa ilable Take 1 capsule every day by oral route. gabapentin 300 mg capsule Active Not av ailable Take 1 capsule twice a day by oral route. guaifenesin ER 600 mg tablet, extended release 12 hr Active Not available Take 1 tablet every 12 hours by oral route. Hair,Skin and Nails Active Not availabl e lidocaine 5 % topical patch Active Not available APPLY 1 PATCH BY TRANSDERMAL ROUTE ONCE DAILY (MAY WEAR UP TO 1 2HOURS.) loratadine 10 mg tablet Active Not avai lable Take 1 tablet every day by oral route. medroxyprogesterone 150 mg/mL intramuscular syringe Completed 07/05/2019 Inject 1 mL every 3 months by intramuscular route. multivitamin Active Not available Novolog Flexpen U-100 Insulin Active No t available oxybutynin chloride 5 mg tablet Active Not available Take 1 tablet every day by oral route. propranolol 40 mg tablet Active Not elisa ilable Take 1 tablet every day by oral route. Problems Name Status Onset Date Source Diabetes Mellitus Active 04/15/2019 Hyperlipidemia Active 04/15/2019 Depressive Disorder Active 04/15/2019 Migraine Active 04/15/2019 Benign Intracranial Hypertension Active 04/15/2019 Low Back Pain Active 04/15/2019 Procedures Date Name Performed by Extraction of [place] Tooth Information n ot available 07/05/2019 MRI, Brain, W/wo Contrast [facility] [address] [place] [address] (Work Place) Results Lab Results Date Name Specimen Result Interpretation Description Value Range Status Address 07/19/2019 Cytology, No observation Pathologists' Non-gynecological, recorded. Regional Lab: [address] Unspecified Specimen [address] [place] [address] Past Encounters None recorded. Social History Tobacco Smoking Status Current Every Day Smoker Vaccine List None recorded. Plan of Care Reminders Provider Appointments None recorded. Lab None recorded. Referral None recorded. Procedures None recorded. Surgeries None recorded. Imaging None recorded. Vitals 07/26/2019 08:00AM Established Patient 30 Height Weight BMI Blood Pressure 5 ft 6 in 213 lbs 34.4 kg/m2 124/80 mm[Hg] 07/05/2019 01:00PM New Patient 60 Height Weight BMI Blood Pressure 5 ft 6 in 212.8 lbs 34.3 kg/m2 110/74 mm[Hg]
--- OUTSIDE RECORDS SUMMARY | 2021-09-20 19:35 | External Medical Summary | Encounter Summary ---
:1980 Author Care Team Providers Name Role Phone Terrance Clarke DDS Dentist [phone] Reason for Visit None recorded. Assessment and Plan 1. Preventive dental procedure Discussion Note: None recorded.Patient educational handouts: No information available. Plan of Care Patient Instructions [place] and floss 2-3 times daily Eat a [...] Medications Administered None recorded. Vitals Blood Pressure 103/53 mm[Hg] Results Lab Results None recorded. Allergies [...] being injured? Physician/Doctor's Name Carlie Leonard Race/Ethnicity Moldovan/ Are you HIV positive? If yes, N [...] If N yes, A, B, or C ([place])? Have you ever had Jaundice? Have you [...] N murmurs? Functional Status Unknown. Past Encounters 08/03/2021 Preventive Dental Procedure Terrance Clarke DDS: [address] [place] [address] , Ph. 07/13/2021 Loss of Teeth Due to Extraction Terrance Clarke DDS: [address] [place] [address] , Ph. 07/09/2021 Loss of Teeth Due to Extraction Terrance Clarke DDS: [address] [place] [address] , Ph. 07/05/2021 Toothache; Dental Abscess Harvey Gray, DDS: [address] [place] [phone], Ph. History of Present Illness None recorded. Review of Systems None recorded. Physical Exam None recorded.
--- OUTSIDE RECORDS SUMMARY | 2021-09-20 19:35 | External Medical Summary | Encounter Summary ---
:1980 Author Care Team Providers Name Role Phone Terrance Clarke DDS Dentist [phone] Reason for Visit Extraction Assessment and Plan None recorded.Discussion Note: None recorded.Patient educational handouts: No information available. Plan of Care Reminders Provider Appointments Return to Office on [...] Medications Administered None recorded. Vitals Blood Pressure 101/65 mm[Hg] Results Lab Results None recorded. Allergies Code Code System Name Reaction Severity Onset 4821 RxNorm Glipizide Hives Moderate to Severe 6719 RxNorm Metformin Headache Severe Seasonale (91) Other [...] N after being injured? Physician/Doctor's Name Carlie Berman Horacio Race/Ethnicity Mongolian/ Are you HIV positive? If yes, N [...] If N yes, A, B, or C ([place])? Have you ever had Jaundice? Have you [...] N murmurs? Functional Status Unknown. Past Encounters 09/14/2021 Terrance Clarke, DDS: [address] [place] [phone], Ph. History of Present Illness None recorded. Review of Systems None recorded. Physical Exam None recorded.
[2021-09-20] MEDS: AMOXICILLIN/POTASSIUM CLAV 875 MG TABLET PO SCH (20:29)
[2021-09-20] MEDS: DULoxetine 30 MG CAPSULE PO SCH (20:29)
[2021-09-20] MEDS: ACETAMINOPHEN 325 MG TABLET PO PRN (20:30)
[2021-09-20] MEDS: FLUoxetine HCL 20 MG CAPSULE PO SCH (20:30)
[2021-09-20] MEDS ORDERED: GABAPENTIN 100 MG CAPSULE PO SCH (21:00)
[2021-09-20] MEDS ORDERED: [UNRECOGNIZED DRUG - OTHER] PO SCH (21:00)
[2021-09-20] MEDS ORDERED: ACETAZOLAMIDE 500 MG PO SCH (21:00)
[2021-09-20 21:14] LABS: Appearance,Urine CLEAR (Clear); Bilirubin,Urine Negative (Negative); Color,Urine YELLOW; Culture Indicated,Urine No; Glucose,Urine (UA) >=500 mg/dL (Negative); Ketones,Urine 80 mg/dL (Negative); Leukocyte Esterase,Urine Negative /uL (Negative); Mucus,Urine FEW /hpf; Nitrate,Urine Negative (Negative); Protein,Urine 30 mg/dL (Negative); Specific Gravity,Urine 1.012 (1.000-1.035); Urine Blood Negative (Negative); Urine Hyaline Cast 3 /lph (0-2); Urine RBC 3 /hpf (0-3); Urine Squamous Epithelial Cell < 1 /hpf (0-4); Urine WBC 5 /hpf (0-4); Urobilinogen,Urine Negative
[2021-09-20] MEDS: ETODOLAC 400 MG TABLET PO SCH (23:12)
[2021-09-20] MEDS: 0.9 % SODIUM CHLORIDE 10 ML SYRINGE IV SCH (23:13)
[2021-09-21] MEDS ORDERED: INSULIN REGULAR, HUMAN 1 UNIT/0.01 ML UNIT ONE (00:56)
[2021-09-21] MEDS: INSULIN REGULAR, HUMAN 50 UNIT in 0.9 % SODIUM CHLORIDE 99.5 ML IV SCH (01:16)
[2021-09-21] MEDS: DEXTROSE 5%-1/2NS 1,000 ML IV SCH (01:17)
[2021-09-21] MEDS: 0.9 % SODIUM CHLORIDE 10 ML SYRINGE IV SCH ×3 (05:55→20:11)
[2021-09-21 06:48] LABS: ABG Methemoglobin 0.3 % (0.4-1.5); Total Hemoglobin 11.5 gm/Dl (12.0-15.0); VBG Base Excess -6 (-2-2); VBG HCO3 18.6 mmol/L (24.0-28.0); VBG Oxygen Saturation 91.9 % (40.0-70.0); VBG PCO2 32.3 mmHg (41.0-51.0); VBG PH 7.38 U (7.32-7.42); VBG PO2 143.1 mmHg (25.0-40.0); VBG Total CO2 19.6 mmol/L (25.0-29.0)
[2021-09-21 07:12] LABS: Beta Hydroxybutyrate 0.56 mmol/L (<0.27)
[2021-09-21 07:15] LABS: ALT/SGPT 30 U/L (<40); AST/SGOT 25 U/L (<32); Albumin 2.8 gm/dL (3.2-5.2); Albumin/Globulin Ratio 0.8 (1.0-2.3); Alkaline Phosphatase 123 U/L (39-117); Bilirubin,Direct < 0.2 mg/dL (0-0.3); Bilirubin,Total 0.2 mg/dL (0.1-1.0); Blood Urea Nitrogen 9 mg/dL (6-20); Calcium 8.5 mg/dL (8.6-10.4); Carbon Dioxide 16 mmol/L (22-30); Chloride 107 mmol/L (96-108); Globulin 3.5 gm/dL (2.2-3.7); Glomerular Filtration Rate 107; Glucose 158 mg/dL (70-105); Lactate Dehydrogenase 166 U/L (135-225); Phosphorous 2.5 mg/dL (2.5-4.5); Triglycerides 232 mg/dL (<150); Uric Acid 2.5 mg/dL (2.5-8.0)
[2021-09-21] MEDS ORDERED: POTASSIUM CHLORIDE 20 MEQ TABLET PO ONE (07:23)
[2021-09-21] MEDS ORDERED: POTASSIUM CHLORIDE 40 MEQ in DEXTROSE 5% IN WATER 500 ML IV ONE (07:23)
[2021-09-21] MEDS ORDERED: DEXTROSE 31 GM ORAL.SUSP PO PRN (07:24)
[2021-09-21] MEDS ORDERED: INSULIN GLARGINE, HUMAN 1 UNIT/0.01 ML SQ ONE (07:24)
[2021-09-21] MEDS ORDERED: DEXTROSE 50% 50 ML VIAL IV PRN (07:24)
--- NOTE | 2021-09-21 07:24 | Internal Med Progress Note ---
SUBJECTIVE Subjective Patient information: Note initiated : 09/21/21 at 7:20 am Service Date, if different from initiated Date: [] Patient: Conchita Dyer 41 y/o F admitted on 09/20/21 for nausea and vomiting. Chief Complaint: [] Interval history: History of present illness: Ms. Dyre is a 41 year old F Who was recently admitted for left pyelonephritis was discharged yesterday morning she went home fell asleep in the evening started having some nausea and then this morning had nausea vomiting. Unable to keep anything down. Came to the ED and evaluated and found to be in DKA. Patient states she just takes a short acting insulin 15 units with lunch every day. She was on a long-acting but her pharmacist stopped that tried her on Ozempic but she did not tolerate that and is now only on the short acting once a day and is waiting for new pharmacist to adjust her medication as it appears her diabetes is being managed by pharmacy. Recent A1c was 11.2. Patient likely benefit from restarting of basal insulin. She says the left flank pain that she felt last admission is improving. No new abdominal complaints. She was having some diarrhea but has not had that for day or 2 09/21 Constitutional Vitals: Vital Signs Temp Pulse Resp BP Pulse Ox 98.2 F 78 20 154/79 96 09/21/21 03:30 09/21/21 07:09 09/21/21 07:09 09/21/21 07:01 09/21/21 07:09 Period Temp Pulse Resp BP Sys/Cain Pulse Ox Last 24 Hr 97.2 F-99.2 F 58-92 16-36 126-159/63-124 94-100 Intake and Output 09/20/21 09/21/21 09/21/21 21:59 05:59 13:59 Intake Total 1196 1046 Output Total 800 Balance 1196 246 Weight 94.999 kg Intake & Output: Intake & Output 09/20/21 09/21/21 09/21/21 21:59 05:59 13:59 Intake Total 1196 1046 Output Total 800 Balance 1196 246 Weight 94.999 kg Intake: IV 1196 1046 Sodium Chloride 0.9% 1,000 ml @ 1000 Wide Open IV BOLUS ONE Rx#: [id number] Dextrose 5%-1/2Ns IV Solution 1 161 703 ,000 ml @ 100 mls/hr IV .Q10H [facility] Rx#:[id number] HumuLIN R 50 UNIT In Sodium 35 83 Chloride 0.9% 99.5 ml @ 5 UNIT/ HR 10 mls/hr IV DUR [facility] Rx#: [id number] Potassium Chloride 20 Meq In 260 Dextrose 5% in Water 250 ml @ 130 mls/hr IV ONCE ONE Rx#: [id number] Output: Void Amount 800 Other: Urine Appearance Clear Urine Color Dark Yellow Exam: General: Alert, Awake, No acute Distress, obese Eyes/N/T: EOMI, Head/Neck: neck supple, CV: RRR, No murmurs, Pulm: Clear b/l, no wheezing/rhonchi/rales Abd: soft, nontender, +BS x4 Ext: no clubbing/cyanosis/edema Neuro: Alert, no focal deficits, moves all extremities, Skin: warm/dry OBJ DATA Labs CBC & Chem 7: 09/20/21 13:24 09/21/21 06:20 Labs: Abnormal Lab Results 09/21/21 09/21/21 09/20/21 06:20 06:20 14:02 MPV Neut % (Auto) Lymph % (Auto) Lymph # (Auto) ABG Methemoglobin 0.3 L VBG pCO2 32.3 L VBG pO2 143.1 H VBG HCO3 18.6 L VBG Total CO2 19.6 L VBG O2 Saturation 91.9 H VBG Base Excess -6 L Carboxyhemoglobin 6.7 H Total Hemoglobin 11.5 L Potassium 2.8 L* Carbon Dioxide 16 L Anion Gap Glucose 158 H Calcium 8.5 L GGT 72 H Alkaline Phosphatase 123 H Albumin 2.8 L Globulin Albumin/Globulin Ratio 0.8 L Triglycerides 232 H Lipase Beta-Hydroxybutyrate 0.56 H Urine Protein 30 A Urine Glucose (UA) >=500 A Urine Ketones 80 A Urine WBC 5 H Hyaline Casts 3 H Urine Mucus Few A 09/20/21 09/20/21 09/20/21 13:24 11:50 11:50 MPV 10.7 H Neut % (Auto) 78.5 H Lymph % (Auto) 12.7 L Lymph # (Auto) 1.29 L ABG Methemoglobin VBG pCO2 VBG pO2 VBG HCO3 VBG Total CO2 VBG O2 Saturation VBG Base Excess Carboxyhemoglobin Total Hemoglobin Potassium Carbon Dioxide 10 L* Anion Gap 24.0 H Glucose 242 H Calcium GGT Alkaline Phosphatase 162 H Albumin Globulin 4.3 H Albumin/Globulin Ratio 0.8 L Triglycerides Lipase 99 H Beta-Hydroxybutyrate 4.83 H Urine Protein Urine Glucose (UA) Urine Ketones Urine WBC Hyaline Casts Urine Mucus Meds: Medications Acetaminophen (Acetaminophen 325 Mg Tablet) 650 mg PO Q6HP PRN; Protocol PRN Reason: Per Pain Protocol/Fever > 101 Last Admin: 09/20/21 20:30 Dose: 650 mg Documented by: Acetaminophen/Codeine Phosphate (Acetaminophen W/Codeine #3 1 Tablet) 1 tab PO TIDP PRN; Protocol PRN Reason: Pain Albuterol/Ipratropium (Ipratropium/Albuterol 3 Ml Ampul.Neb) 3 ml NEB Q4HP PRN PRN Reason: Shortness Of Breath Amoxicillin/Clavulanate Potassium (Amoxicillin/Potassium Clav 875 Mg Tablet) [facility] Last Admin: 09/20/21 20:29 Dose: 875 mg Documented by: Atorvastatin Calcium (Atorvastatin 40 Mg Tablet) 40 mg PO DAILY [facility] Diagnostic Test (Pha) (Accu-Chek 1 Each Strip) 1 each FS Q1 [facility] Last Admin: 09/21/21 05:55 Dose: 1 each Documented by: Duloxetine HCl (Duloxetine 30 Mg Capsule) 60 mg PO [facility] Last Admin: 09/20/21 20:29 Dose: 60 mg Documented by: Enoxaparin Sodium (Enoxaparin 40 Mg/0.4 Ml Syringe) 40 mg SQ DAILY [facility] Etodolac (Etodolac 400 Mg Tablet) 400 mg PO [facility] Last Admin: 09/20/21 23:12 Dose: Not Given Documented by: Fluoxetine HCl (Fluoxetine Hcl 20 Mg Capsule) 20 mg PO BID [facility] Last Admin: 09/20/21 20:30 Dose: 20 mg Documented by: Gabapentin (Gabapentin 100 Mg Capsule) 600 mg PO BID [facility] Last Admin: 09/20/21 20:30 Dose: 600 mg Documented by: Insulin Human Regular 50 unit/ (Sodium Chloride) 100 mls @ 10 mls/hr IV DUR [facility]; Protocol Last Titration: 09/21/21 03:00 Dose: 2 unit/hr, 4 mls/hr Documented by: Dextrose/Sodium Chloride (Dextrose 5%-1/2ns Iv Solution) 1,000 mls @ 100 mls/hr IV .Q10H [facility] Last Admin: 09/21/21 01:17 Dose: 100 mls/hr Documented by: Potassium Chloride 40 meq/ (Dextrose) 520 mls @ 130 mls/hr IV UD PRN PRN Reason: Potassium < 3 Magnesium Sulfate (Magnesium Sulfate) 2 gm in 50 mls @ 50 mls/hr IV UD PRN PRN Reason: Magnesium </= 1.6 Ondansetron HCl (Ondansetron 4 Mg/2 Ml Vial) 4 mg IV Q4HP PRN PRN Reason: Nausea And Vomiting Last Admin: 09/20/21 21:06 Dose: 4 mg Documented by: Polyethylene Glycol (Polyethylene Glycol 3350 17 Gm Packet) 17 gm PO DAILYP PRN PRN Reason: Constipation Potassium Chloride (Potassium Chloride 20 Meq Tablet) 40 meq PO UD PRN PRN Reason: Potssium is 3-3.5 Potassium Chloride (Potassium Chloride 20 Meq Tablet) 40 meq PO UD PRN PRN Reason: Potassium < 3 Propranolol HCl (Propranolol 40 Mg Tablet) 40 mg PO DAILY [facility] Senna (Sennosides 1 Tablet) 2 tab PO DAILYP PRN PRN Reason: Constipation Sodium Chloride (0.9 % Sodium Chloride 10 Ml Syringe) 10 ml IV Q8 [facility] Last Admin: 09/21/21 05:55 Dose: Not Given Documented by: Tizanidine HCl (Tizanidine 4 Mg Tablet) 4 mg PO QIDP PRN PRN Reason: MUSCLE SPASMS Last Admin: 09/20/21 20:30 Dose: 4 mg Documented by: ABG Interpretation ABG results: 09/21/21 06:20 ABG Methemoglobin 0.3 L VBG pH 7.38 VBG pCO2 32.3 L VBG pO2 143.1 H VBG HCO3 18.6 L VBG Total CO2 19.6 L VBG O2 Saturation 91.9 H VBG Base Excess -6 L A/P Narrative A/P Narrative: A: *DKA (DM w/neuropathy): -A1c 11.2 *Recent left pyelonephritis: Discharged on amoxicillin *Obesity: *Pseudotumor cerebri: On acetazolamide *Depression: *Tobacco abuse P: -IVF -insulin gtt to sq -pt will require long-acting insulin upon d/c -Continue antibiotics prescribed at discharge -Smoking cessation counseling -ppx: Lovenox Time Spent With Patient Time: Total time spent is greater than 50% in coordination of care (as documented) at patient's floor/unit and/or counseling patient: QUALITY Stroke Symptom Onset Unknown: No VTE Deep Vein Thrombosis/Pulmonary Embolism Present on Admission: No
[2021-09-21] MEDS: INSULIN LISPRO 1 UNIT/0.01 ML UNIT SQ SCH ×4 (08:08→20:19)
--- NOTE | 2021-09-21 08:27 | Internal Med Progress Note ---
SUBJECTIVE Subjective Patient information: Note initiated : 09/21/21 at 8:26 am Service Date, if different from initiated Date: [] Patient: Conchita Dyer 41 y/o F admitted on 09/20/21 for nausea and vomiting. Chief Complaint: [] Interval history: History of present illness: Ms. Dyer is a 41 year old F Who was recently admitted for left pyelonephritis was discharged yesterday morning she went home fell asleep in the evening started having some nausea and then this morning had nausea vomiting. Unable to keep anything down. Came to the ED and evaluated and found to be in DKA. Patient states she just takes a short acting insulin 15 units with lunch every day. She was on a long-acting but her pharmacist stopped that tried her on Ozempic but she did not tolerate that and is now only on the short acting once a day and is waiting for new pharmacist to adjust her medication as it appears her diabetes is being managed by pharmacy. Recent A1c was 11.2. Patient likely benefit from restarting of basal insulin. She says the left flank pain that she felt last admission is improving. No new abdominal complaints. She was having some diarrhea but has not had that for day or 2 09/21 No overnight event or new complaints. Patient tolerating diet and home antibiotic. Switching to subcu insulin today and titrate up to a discharge dose. Hypokalemia today we will replete. Review of Systems: denies headache/fever/chills/nausea/vomiting/chest or abdominal pain/cough/dyspnea/diarrhea. Otherwise see above. Constitutional Vitals: Vital Signs Temp Pulse Resp BP Pulse Ox 98.5 F 63 20 147/85 96 09/21/21 08:06 09/21/21 08:09 09/21/21 08:09 09/21/21 08:06 09/21/21 08:09 Period Temp Pulse Resp BP Sys/Cain Pulse Ox Last 24 Hr 97.2 F-99.2 F 58-92 16-36 126-159/63-124 94-100 Intake and Output 09/20/21 09/21/21 09/21/21 21:59 05:59 13:59 Intake Total 1196 1046 Output Total 800 Balance 1196 246 Weight 94.999 kg Intake & Output: Intake & Output 09/20/21 09/21/21 09/21/21 21:59 05:59 13:59 Intake Total 1196 1046 Output Total 800 Balance 1196 246 Weight 94.999 kg Intake: IV 1196 1046 Sodium Chloride 0.9% 1,000 ml @ 1000 Wide Open IV BOLUS ONE Rx#: [id number] Dextrose 5%-1/2Ns IV Solution 1 161 703 ,000 ml @ 100 mls/hr IV .Q10H MARI Rx#:[id number] HumuLIN R 50 UNIT In Sodium 35 83 Chloride 0.9% 99.5 ml @ 5 UNIT/ HR 10 mls/hr IV DUR MARI Rx#: [id number] Potassium Chloride 20 Meq In 260 Dextrose 5% in Water 250 ml @ 130 mls/hr IV ONCE ONE Rx#: [id number] Output: Void Amount 800 Other: Urine Appearance Clear Urine Color Dark Yellow Exam: General: Alert, Awake, No acute Distress, obese Eyes/N/T: EOMI, Head/Neck: neck supple, CV: RRR, No murmurs, Pulm: Clear b/l, no wheezing/rhonchi/rales Abd: soft, nontender, +BS x4 Ext: no clubbing/cyanosis/edema Neuro: Alert, no focal deficits, moves all extremities, Skin: warm/dry OBJ DATA Labs CBC & Chem 7: 09/20/21 13:24 09/21/21 06:20 Labs: Abnormal Lab Results 09/21/21 09/21/21 09/20/21 06:20 06:20 14:02 MPV Neut % (Auto) Lymph % (Auto) Lymph # (Auto) ABG Methemoglobin 0.3 L VBG pCO2 32.3 L VBG pO2 143.1 H VBG HCO3 18.6 L VBG Total CO2 19.6 L VBG O2 Saturation 91.9 H VBG Base Excess -6 L Carboxyhemoglobin 6.7 H Total Hemoglobin 11.5 L Potassium 2.8 L* Carbon Dioxide 16 L Anion Gap Glucose 158 H Calcium 8.5 L GGT 72 H Alkaline Phosphatase 123 H Albumin 2.8 L Globulin Albumin/Globulin Ratio 0.8 L Triglycerides 232 H Lipase Beta-Hydroxybutyrate 0.56 H Urine Protein 30 A Urine Glucose (UA) >=500 A Urine Ketones 80 A Urine WBC 5 H Hyaline Casts 3 H Urine Mucus Few A 01/12/0709/20/21 09/20/21 13:24 11:50 11:50 MPV 10.7 H Neut % (Auto) 78.5 H Lymph % (Auto) 12.7 L Lymph # (Auto) 1.29 L ABG Methemoglobin VBG pCO2 VBG pO2 VBG HCO3 VBG Total CO2 VBG O2 Saturation VBG Base Excess Carboxyhemoglobin Total Hemoglobin Potassium Carbon Dioxide 10 L* Anion Gap 24.0 H Glucose 242 H Calcium GGT Alkaline Phosphatase 162 H Albumin Globulin 4.3 H Albumin/Globulin Ratio 0.8 L Triglycerides Lipase 99 H Beta-Hydroxybutyrate 4.83 H Urine Protein Urine Glucose (UA) Urine Ketones Urine WBC Hyaline Casts Urine Mucus Meds: Medications Acetaminophen (Acetaminophen 325 Mg Tablet) 650 mg PO Q6HP PRN; Protocol PRN Reason: Per Pain Protocol/Fever > 101 Last Admin: 09/20/21 20:30 Dose: 650 mg Documented by: Acetaminophen/Codeine Phosphate (Acetaminophen W/Codeine #3 1 Tablet) 1 tab PO TIDP PRN; Protocol PRN Reason: Pain Albuterol/Ipratropium (Ipratropium/Albuterol 3 Ml Ampul.Neb) 3 ml NEB Q4HP PRN PRN Reason: Shortness Of Breath Amoxicillin/Clavulanate Potassium (Amoxicillin/Potassium Clav 875 Mg Tablet) [facility] Last Admin: 09/20/21 20:29 Dose: 875 mg Documented by: Atorvastatin Calcium (Atorvastatin 40 Mg Tablet) 40 mg PO DAILY [facility] Dextrose (Dextrose 50% 50 Ml Vial) 0 ml IV UD PRN PRN Reason: Hypoglycemia Diagnostic Test (Pha) (Accu-Chek 1 Each Strip) 1 each FS ACHS [facility] Last Admin: 09/21/21 07:48 Dose: 1 each Documented by: Duloxetine HCl (Duloxetine 30 Mg Capsule) 60 mg PO [facility] Last Admin: 09/20/21 20:29 Dose: 60 mg Documented by: Enoxaparin Sodium (Enoxaparin 40 Mg/0.4 Ml Syringe) 40 mg SQ DAILY [facility] Etodolac (Etodolac 400 Mg Tablet) 400 mg PO [facility] Last Admin: 09/20/21 23:12 Dose: Not Given Documented by: Fluoxetine HCl (Fluoxetine Hcl 20 Mg Capsule) 20 mg PO BID [facility] Last Admin: 09/20/21 20:30 Dose: 20 mg Documented by: Gabapentin (Gabapentin 300 Mg Capsule) 900 mg PO BID [facility] Glucose (Dextrose 31 Gm Oral.Susp) 15 gm PO PRN PRN PRN Reason: Hypoglycemia Insulin Human Regular 50 unit/ (Sodium Chloride) 100 mls @ 10 mls/hr IV DUR [facility]; Protocol Last Titration: 09/21/21 03:00 Dose: 2 unit/hr, 4 mls/hr Documented by: Potassium Chloride 40 meq/ (Dextrose) 520 mls @ 130 mls/hr IV UD PRN PRN Reason: Potassium < 3 Magnesium Sulfate (Magnesium Sulfate) 2 gm in 50 mls @ 50 mls/hr IV UD PRN PRN Reason: Magnesium </= 1.6 Potassium Chloride 40 meq/ (Dextrose) 520 mls @ 130 mls/hr IV ONCE ONE Stop: 09/21/21 11:22 Last Admin: 09/21/21 08:08 Dose: 130 mls/hr Documented by: Sodium Chloride (Sodium Chloride 0.45%) 1,000 mls @ 125 mls/hr IV .Q8H [facility] Stop: 09/21/21 16:29 Insulin Human Lispro (Insulin Lispro 1 Unit/0.01 Ml Unit) 0 [facility]; Protocol Last Admin: 09/21/21 08:08 Dose: Not Given Documented by: Iron Carb/Multivit/[place]/Folic Acid (Multivit,Ther Iron,Ca,Fa & Min 1 Tablet) 1 tab PO DAILY [facility] Ondansetron HCl (Ondansetron 4 Mg/2 Ml Vial) 4 mg IV Q4HP PRN PRN Reason: Nausea And Vomiting Last Admin: 09/20/21 21:06 Dose: 4 mg Documented by: Polyethylene Glycol (Polyethylene Glycol 3350 17 Gm Packet) 17 gm PO DAILYP PRN PRN Reason: Constipation Potassium Chloride (Potassium Chloride 20 Meq Tablet) 40 meq PO UD PRN PRN Reason: Potssium is 3-3.5 Potassium Chloride (Potassium Chloride 20 Meq Tablet) 40 meq PO UD PRN PRN Reason: Potassium < 3 Propranolol HCl (Propranolol 40 Mg Tablet) 40 mg PO DAILY [facility] Senna (Sennosides 1 Tablet) 2 tab PO DAILYP PRN PRN Reason: Constipation Sodium Bicarbonate (Sodium Bicarbonate 650 Mg Tablet) 1,300 mg PO TID [facility] Stop: 09/21/21 21:01 Sodium Chloride (0.9 % Sodium Chloride 10 Ml Syringe) 10 ml IV Q8 [facility] Last Admin: 09/21/21 05:55 Dose: Not Given Documented by: Tizanidine HCl (Tizanidine 4 Mg Tablet) 4 mg PO QIDP PRN PRN Reason: MUSCLE SPASMS Last Admin: 09/20/21 20:30 Dose: 4 mg Documented by: ABG Interpretation ABG results: 09/21/21 06:20 ABG Methemoglobin 0.3 L VBG pH 7.38 VBG pCO2 32.3 L VBG pO2 143.1 H VBG HCO3 18.6 L VBG Total CO2 19.6 L VBG O2 Saturation 91.9 H VBG Base Excess -6 L A/P Narrative A/P Narrative: A: *DKA (DM w/neuropathy): -A1c 11.2 *Recent left pyelonephritis: Discharged on amoxicillin *Obesity: *Pseudotumor cerebri: On acetazolamide *Depression: *Tobacco abuse P: -IVF -insulin gtt to sq and titrate up prn -pt will require long-acting insulin upon d/c -Continue antibiotics prescribed at discharge -Smoking cessation counseling -ppx: Lovenox Time Spent With Patient Time: Total time spent is greater than 50% in coordination of care (as documented) at patient's floor/unit and/or counseling patient: QUALITY Stroke Symptom Onset Unknown: No VTE Deep Vein Thrombosis/Pulmonary Embolism Present on Admission: No
[2021-09-21] MEDS ORDERED: 0.45 % SODIUM CHLORIDE 1,000 ML IV SCH (08:30)
[2021-09-21] MEDS ORDERED: guaiFENesin 600 MG TAB.SR.12H PO SCH (09:00)
[2021-09-21] MEDS: GABAPENTIN 300 MG CAPSULE PO SCH ×2 (09:40→20:08)
[2021-09-21] MEDS: FLUoxetine HCL 20 MG CAPSULE PO SCH ×2 (09:40→20:08)
[2021-09-21] MEDS: ATORVASTATIN 40 MG TABLET PO SCH (09:40)
[2021-09-21] MEDS: AMOXICILLIN/POTASSIUM CLAV 875 MG TABLET PO SCH ×2 (09:40→16:51)
[2021-09-21] MEDS: ENOXAPARIN 40 MG/0.4 ML SYRINGE SQ SCH (09:40)
[2021-09-21] MEDS: MULTIVIT,THER IRON,CA,FA & MIN 1 TABLET PO SCH (09:40)
[2021-09-21] MEDS: SODIUM BICARBONATE 650 MG TABLET PO SCH ×3 (09:43→20:09)
[2021-09-21] MEDS: PROPRANOLOL 40 MG TABLET PO SCH (09:43)
[2021-09-21] MEDS ORDERED: FLUoxetine HCL 20 MG CAPSULE PO ONE (09:56)
[2021-09-21] MEDS: ACETAMINOPHEN 325 MG TABLET PO PRN ×2 (10:06→20:09)
--- NOTE | 2021-09-21 17:01 | Discharge Summary ---
Discharge Provider Provider Patient information: Note initiated : 09/21/21 at 5:00 pm Service Date, if different from initiated Date: [] Patient: Conchita Dyer 41 y/o F admitted on 09/20/21 for nausea and vomiting. Chief Complaint: [] Date of admission: 09/20/21 17:04 Discharge date: 09/22/21 Primary care physician: Carlie Berman Consults: 09/20/21 15:52 Consult to Physician [CONS] Stat Comment: Consulting Provider: Filipe Rayo Reason For Exam: Physician to Consult Discharge Meds Discharge Medications Home Medications acetazolamide 500 mg capsule,extended release 1,000 mg PO BID 01/14/16 [History Confirmed 09/20/21 Last Taken 09/16/21 05:30] propranolol 10 mg tablet 40 mg PO DAILY 01/14/16 [History Confirmed 09/20/21 Last Taken 09/16/21 05:30] fluoxetine 20 mg capsule 40 mg PO BID cap 12/07/18 [History Confirmed 09/20/21 Last Taken 09/16/21 05:30] tizanidine 2 mg capsule 4 mg PO BID 08/11/21 [History Confirmed 09/20/21 Last Taken 09/16/21 05:30] acetaminophen 300 mg-codeine 30 mg tablet 1 tab PO TID PRN 09/07/21 [History Confirmed 09/20/21 Last Taken 09/19/21 08:00] duloxetine 60 mg capsule,delayed release 60 mg PO HS 09/07/21 [History Confirmed 09/20/21 Last Taken 09/15/21 20:00] guaifenesin 600 mg tablet, extended release 12 hr 600 mg PO BID 09/07/21 [History Confirmed 09/20/21 Last Taken 09/16/21 05:30] rosuvastatin 10 mg tablet 20 mg PO QDAY 09/07/21 [History Confirmed 09/20/21 Last Taken 09/16/21 05:30] multivit,Ca,iron,cvq-VN-ikuyooz-xlshxym-axoh-PKPQ 3 mg-133 mcg capsule (Body, Hair, Skin and Nails) 1 cap PO DAILY 09/16/21 [History Confirmed 09/20/21 Last Taken 09/16/21 05:30] amoxicillin 875 mg tablet 875 mg PO BID #12 tab 09/19/21 [Rx Confirmed 09/20/21 Last Taken Unknown] antiox.multivit 10-aarja3m 280 mg-lutein 10 mg-zeaxanthin 2 mg capsule (I-Caps) 1 cap PO DAILY 09/20/21 [History Confirmed 09/20/21 Last Taken Unknown] cholecalciferol (vitamin D3) 50 mcg (2,000 unit) capsule (Vitamin D3) 50 mcg PO QDAY 09/20/21 [History Confirmed 09/20/21 Last Taken Unknown] etodolac 500 mg tablet 500 mg PO BID 09/20/21 [History Confirmed 09/20/21 Last Taken Unknown] gabapentin 300 mg capsule 900 mg PO BID 09/20/21 [History Confirmed 09/20/21 Last Taken Unknown] loratadine 10 mg tablet 10 mg PO QDAY 09/20/21 [History Confirmed 09/20/21 Last Taken Unknown] insulin aspart U-100 100 unit/mL (3 mL) subcutaneous pen (Novolog Flexpen U-100 Insulin aspart) See Protocol SUBCUT ACHS #3 ml MDD 40 09/21/21 [Rx Last Taken Unknown] insulin glargine 100 unit/mL (3 mL) subcutaneous pen (Lantus Solostar U-100 Insulin) 22 unit (0.22 mL) SUB-Q QDAY #3 ml 09/22/21 [Rx Last Taken Unknown] COURSE Hospital Course Hospital course: Interval history: History of present illness: Ms. Dyer is a 41 year old F Who was recently admitted for left pyelonephritis was discharged yesterday morning she went home fell asleep in the evening started having some nausea and then this morning had nausea vomiting. Unable to keep anything down. Came to the ED and evaluated and found to be in DKA. Patient states she just takes a short acting insulin 15 units with lunch every day. She was on a long-acting but her pharmacist stopped that tried her on Ozempic but she did not tolerate that and is now only on the short acting once a day and is waiting for new pharmacist to adjust her medication as it appears her diabetes is being managed by pharmacy. Recent A1c was 11.2. Patient likely benefit from restarting of basal insulin. She says the left flank pain that she felt last admission is improving. No new abdominal complaints. She was having some diarrhea but has not had that for day or 2 09/21 No overnight event or new complaints. Patient tolerating diet and home antibiotic. Switching to subcu insulin today and titrate up to a discharge dose. Hypokalemia today we will replete. 09/22 Doing well. Awaiting follow-up labs. A: *DKA (DM w/neuropathy): -A1c 11.2 *Recent left pyelonephritis: Discharged on amoxicillin *Obesity: *Pseudotumor cerebri: On acetazolamide *Depression: *Tobacco abuse Discharge diagnosis: DKA Secondary discharge diagnosis: Obesity pseudotumor cerebri depression tobacco abuse recent left pyelonephritis Time Spent with Patient Time attestation: Total time spent providing and/or coordinating discharge services: Time spent: Greater than 30 minutes EXAM Constitutional Vitals: Temp Pulse Resp BP Pulse Ox 98.6 F 64 16 141/74 97 09/21/21 16:00 09/21/21 16:00 09/21/21 16:00 09/21/21 16:00 09/21/21 16:00 Discharge Data Data Completed and Pending Labs on day of discharge: Labs from last 24 hours 09/21/21 09/21/21 09/20/21 06:20 06:20 14:02 ABG Methemoglobin 0.3 L VBG pH 7.38 VBG pCO2 32.3 L VBG pO2 143.1 H VBG HCO3 18.6 L VBG Total CO2 19.6 L VBG O2 Saturation 91.9 H VBG Base Excess -6 L Carboxyhemoglobin 6.7 H Total Hemoglobin 11.5 L Sodium 135 Potassium 2.8 L* Chloride 107 Carbon Dioxide 16 L Anion Gap 12.0 BUN 9 Creatinine 0.7 GFR Calculation 107 Glucose 158 H Uric Acid 2.5 Calcium 8.5 L Phosphorus 2.5 Magnesium 1.9 Total Bilirubin 0.2 Direct Bilirubin < 0.2 GGT 72 H AST 25 ALT 30 Alkaline Phosphatase 123 H Lactate Dehydrogenase 166 Total Protein 6.3 Albumin 2.8 L Globulin 3.5 Albumin/Globulin Ratio 0.8 L Triglycerides 232 H Beta-Hydroxybutyrate 0.56 H Urine Color Yellow Urine Appearance Clear Urine pH 6.0 Ur Specific Branch 1.012 Urine Protein 30 A Urine Glucose (UA) >=500 A Urine Ketones 80 A Urine Occult Blood Negative Urine Nitrate Negative Urine Bilirubin Negative Urine Urobilinogen Negative Ur Leukocyte Esterase Negative Urine RBC 3 Urine WBC 5 H Ur Squamous Epith Cells < 1 Urine Bacteria None Hyaline Casts 3 H Urine Mucus Few A Ur Culture Indicated? No 09/20/21 11:50 ABG Methemoglobin VBG pH VBG pCO2 VBG pO2 VBG HCO3 VBG Total CO2 VBG O2 Saturation VBG Base Excess Carboxyhemoglobin Total Hemoglobin Sodium Potassium Chloride Carbon Dioxide Anion Gap BUN Creatinine GFR Calculation Glucose Uric Acid Calcium Phosphorus 2.8 Magnesium 2.0 Total Bilirubin Direct Bilirubin GGT AST ALT Alkaline Phosphatase Lactate Dehydrogenase Total Protein Albumin Globulin Albumin/Globulin Ratio Triglycerides Beta-Hydroxybutyrate Urine Color Urine Appearance Urine pH Ur Specific Branch Urine Protein Urine Glucose (UA) Urine Ketones Urine Occult Blood Urine Nitrate Urine Bilirubin Urine Urobilinogen Ur Leukocyte Esterase Urine RBC Urine WBC Ur Squamous Epith Cells Urine Bacteria Hyaline Casts Urine Mucus Ur Culture Indicated? Discharge Plan Patient/Caregiver Discharge Instructions Activity: increase activity as tolerated Diet: Consistent Carbohydrate Prescriptions: New insulin aspart U-100 [Novolog Flexpen U-100 Insulin] 100 unit/mL (3 mL) insulin pen See Protocol unit subcut ACHS MDD 40 Qty: 3 0RF Protocol: Insulin Sliding Scale, Med Condition: HUMALOG/NOVALOG SC SLIDING Dose/Route: SCALE Condition: FSBS < 70 Dose/Route: Give 4 Oz juice, or 15gm oral Instruction: Glucose, or 25ml D50W IV if Dose/Route: unable to take PO. Recheck in Instruction: 15 min and repeat if FSBS < 70 Condition: FSBS 71-140 Dose/Route: NO COVERAGE Condition: FSBS 141-170 Dose/Route: 2 UNITS Condition: FSBS 171-200 Dose/Route: 4 UNITS Condition: FSBS 201-250 Dose/Route: 6 UNITS Condition: FSBS 251-300 Dose/Route: 8 UNITS Condition: FSBS 301-350 Dose/Route: 10 UNITS Condition: FSBS 351-400 Dose/Route: 12 UNITS Condition: FSBS > 400 Dose/Route: 14 UNITS; REPEAT Q2H X2 Instruction: CONTINUE FOLLOWING SLIDING Condition: SCALE; IF STILL > 400; CALL Dose/Route: PHYSICIAN Wesley Solostar U-100 Insulin 100 unit/mL (3 mL) insulin pen 22 unit SUB-Q QDAY Qty: 3 0RF Continued rosuvastatin 10 mg tablet 20 mg PO QDAY 0RF duloxetine 60 mg capsule,delayed release(DR/EC) 60 mg PO HS 0RF guaifenesin 600 mg tablet extended release 12hr 600 mg PO BID 0RF acetaminophen-codeine 300-30 mg tablet 1 tab PO TID PRN (Reason: Pain) 0RF tizanidine 2 mg capsule 4 mg PO BID 0RF acetazolamide 500 MG capsule, extended release 1,000 mg PO BID 0RF propranolol 10 MG tablet 40 mg PO DAILY 0RF fluoxetine 20 mg capsule 40 mg PO BID 0RF Body, Hair, Skin and Nails 3-133 mg-mcg Capsule 1 cap PO DAILY 0RF amoxicillin 875 mg tablet 875 mg PO BID Qty: 12 0RF Rx Instructions: Begin taking AM 09/20/2021 unable to take d/t N/V gabapentin 300 mg Capsule 900 mg PO BID 0RF loratadine 10 mg Tablet 10 mg PO QDAY 0RF cholecalciferol (vitamin D3) [Vitamin D3] 50 mcg (2,000 unit) Capsule 50 mcg PO QDAY 0RF etodolac 500 mg Tablet 500 mg PO BID 0RF I-Caps 280-10-2 mg Capsule 1 cap PO DAILY 0RF Discontinued Ozempic 1 mg/dose (2 mg/1.5 mL) pen injector 1 mg subcut QWEEK 0RF Rx Instructions: Pt took 0.25mg last monday 09/10, and is to increase by 0.25mg every week. Takes once a week on monday Follow Up Plan Follow up with: Carlie Berman ARNP [Primary Care Provider] - Patient Disposition: Home, Self-Care Prognosis: Fair Overall status at discharge: patient is progressing back to baseline QUALITY VTE Deep Vein Thrombosis/Pulmonary Embolism Present on Admission: No
[2021-09-21] MEDS: DULoxetine 30 MG CAPSULE PO SCH (20:08)
[2021-09-21] MEDS: ETODOLAC 400 MG TABLET PO SCH (20:20)
[2021-09-22] MEDS: 0.9 % SODIUM CHLORIDE 10 ML SYRINGE IV SCH ×2 (05:27→13:19)
[2021-09-22] MEDS: ACETAMINOPHEN 325 MG TABLET PO PRN (07:26)
[2021-09-22] MEDS: INSULIN LISPRO 1 UNIT/0.01 ML UNIT SQ SCH ×2 (07:49→11:32)
[2021-09-22] MEDS: AMOXICILLIN/POTASSIUM CLAV 875 MG TABLET PO SCH (08:15)
[2021-09-22] MEDS: MULTIVIT,THER IRON,CA,FA & MIN 1 TABLET PO SCH (08:52)
[2021-09-22] MEDS: ATORVASTATIN 40 MG TABLET PO SCH (08:52)
[2021-09-22] MEDS: PROPRANOLOL 40 MG TABLET PO SCH (08:52)
[2021-09-22] MEDS: FLUoxetine HCL 20 MG CAPSULE PO SCH (08:53)
[2021-09-22] MEDS: GABAPENTIN 300 MG CAPSULE PO SCH (08:53)
[2021-09-22] MEDS: ENOXAPARIN 40 MG/0.4 ML SYRINGE SQ SCH (08:55)
[2021-09-22] MEDS ORDERED: INSULIN GLARGINE, HUMAN 1 UNIT/0.01 ML SQ SCH ×3 (09:00)
[2021-09-22 10:21] LABS: Blood Urea Nitrogen 7 mg/dL (6-20); Calcium 8.5 mg/dL (8.6-10.4); Carbon Dioxide 20 mmol/L (22-30); Chloride 105 mmol/L (96-108); Glomerular Filtration Rate 113; Glucose 168 mg/dL (70-105)
[2021-09-22] MEDS ORDERED: SODIUM BICARBONATE 650 MG TABLET PO ONE (10:46)
[2021-09-22] MEDS ORDERED: POTASSIUM CHLORIDE 20 MEQ TABLET PO ONE (10:46)
== END 2021-09-22 13:50 | disposition home or self-care (01) | DRG 638 ==
LOC: ED 09:29 → ICU 17:04 → MEDSUR 09-21 19:28
PROVIDERS: ADMIT Internal Medicine; ATTEND Internal Medicine

== ENCOUNTER 2022-12-08 04:00 | Inpatient (IN) ==
[2022-12-08 04:27] LABS: POC Calcium, Ionized 1.23 (1.16-1.32); POC Creatinine 1.1 (0.6-1.2); POC Potassium 3.5 (3.3-5.1)
[2022-12-08] MEDS ORDERED: 0.9 % SODIUM CHLORIDE 1,000 ML IV ONE ×2 (04:27→06:13)
--- NOTE | 2022-12-08 04:27 | Emergency Department Note ---
HPI General Chief complaint: Cold/Flu Symptoms Stated complaint: fever Time Seen by Provider: 12/08/22 04:26 Mode of arrival: ambulatory History of Present Illness HPI Narrative: Narrative: Patient is a 42-year-old female with a past medical history significant for type 2 diabetes and hyperlipidemia who presents to the emergency department due to flulike symptoms. She states that yesterday she began to have aches throughout her body. She soon developed headache, left flank pain, sore throat, cough, shortness of breath, then fever. She states that she did have 1 episode of vomiting, but denies diarrhea. She states that her temperature was about 103 F. She took 650 mg of Tylenol. She states that she woke up early this morning and felt unwell that she asked her to call 911. She denies any other symptoms at this time. Related Data Home Medications Medication Instructions Recorded Confirmed acetazolamide 500 mg 1,000 mg PO BID 01/14/16 10/18/22 capsule,extended release propranolol 10 mg tablet 20 mg PO BID 01/14/16 10/18/22 fluoxetine 20 mg capsule 40 mg PO BID 12/07/18 10/18/22 duloxetine 60 mg capsule,delayed 60 mg PO HS 09/07/21 10/18/22 release guaifenesin 600 mg tablet, 600 mg PO BID 09/07/21 10/18/22 extended release 12 hr rosuvastatin 10 mg tablet 10 mg PO QDAY 09/07/21 10/18/22 loratadine 10 mg tablet 10 mg PO QAM 09/20/21 10/18/22 insulin aspart U-100 100 unit/mL See Rx Instructions .Route .COMPLEX 02/28/22 10/18/22 (3 mL) subcutaneous pen (Novolog FlexPen U-100 Insulin aspart) insulin glargine 100 unit/mL (3 84 unit subcut QAM 02/28/22 10/18/22 mL) subcutaneous pen (Lantus Solostar U-100 Insulin) multivit,Ca,iron,tsg-[id number]-[id number]-HDYK 2 cap PO QAM 05/05/22 10/18/22 3 mg-133 mcg capsule (Body, Hair, Skin and Nails) diclofenac sodium 1 % topical gel 4 g topical QID 09/13/22 10/18/22 rizatriptan 10 mg tablet 10 mg PO QDAY PRN migraines 09/13/22 10/18/22 acetaminophen 300 mg-codeine 60 mg 1 tab PO BID 10/12/22 10/18/22 tablet tizanidine 4 mg tablet 8 mg PO BID 10/12/22 10/18/22 Previous Rx's Medication Instructions Recorded tramadol 50 mg tablet 50 mg PO Q8H PRN pain #20 tabs 10/18/22 Allergies Allergy/AdvReac Type Severity Reaction Status Date / Time almond Allergy Severe Anaphylaxis Verified 10/18/22 06:13 nut - unspecified Allergy Intermediate Other Verified 10/18/22 06:13 gluten Allergy Mild Verified 10/18/22 06:13 metformin Allergy Mild Rash Verified 10/18/22 06:13 soy Allergy Mild Rash Verified 10/18/22 06:13 egg AdvReac Intermediate Nausea, Verified 10/18/22 06:13 vomiting, rash Pork/Porcine Containing AdvReac Intermediate Hives Verified 10/18/22 06:13 Products glipizide AdvReac Mild Fainting Verified 10/18/22 06:13 grass pollen AdvReac Mild Itching Verified 10/18/22 06:13 lactose AdvReac Mild Gastrointestinal Verified 10/18/22 06:13 Upset levofloxacin [From Levaquin] AdvReac Mild Dizziness Verified 10/18/22 06:13 gibbs Allergy Mild Rash Uncoded 09/23/22 08:30 ham Allergy Mild Rash Uncoded 09/23/22 08:30 wood AdvReac Mild Itching Uncoded 09/23/22 08:30 Review of Systems ROS ROS Narrative: Narrative: Constitutional: Denies fever or weakness Eyes: Denies eye pain or vision change ENT ED: Reports throat pain and rhinorrhea Cardiovascular: Denies chest pain, dyspnea on exertion, orthopnea or edema Respiratory: Reports shortness of breath and cough Gastrointestinal: Reports nausea and vomiting; Denies abdominal pain, diarrhea, constipation, hematochezia or melena Musculoskeletal: Reports back pain (Left flank) and myalgia Integumentary: Denies rash or lesions Neurological: Reports headache; Denies weakness, numbness, confusion, abnormal gait or dizziness Endocrine: Denies fatigue or polyuria PFSH Narrative Patient History Narrative: Narrative: Medical/Surgical/Family History All Active Problems (Updated 12/08/22 @ 07:11 by Francisco Mckeon MD) Urinary tract infection (Chronic) Viral meningitis (Chronic) Contusion, multiple sites (Chronic) Ankle sprain and strain (Chronic) Allergy, food (Chronic) Allergic reaction (Chronic) Migraine (Chronic) Chronic pain (Chronic) Opioid dependence, uncomplicated (Chronic) Low back pain (Chronic) Chronic depression (Chronic) History of tobacco use (Chronic) GERD (gastroesophageal reflux disease) (Chronic) Type 2 diabetes mellitus without complications (Chronic) PTSD (post-traumatic stress disorder) (Chronic) Anxiety disorder (Chronic) Injury of hand, right (Chronic) Hyperglycemia due to type 2 diabetes mellitus (Chronic) Strain of lumbar region (Chronic) Lumbar radiculopathy (Chronic) Dental abscess (Chronic) Hyperglycemia (Chronic) Other low back pain (Chronic) Degeneration of lumbar intervertebral disc (Chronic) Right hip pain (Chronic) Major depression (Chronic) Pseudotumor cerebri (Chronic) Anaphylaxis due to ingested food (Chronic) Sprain of right ankle (Chronic) Knee injury (Chronic) Right knee pain (Chronic) Ankle joint pain (Chronic) Nicotine dependence (Chronic) Pain in pelvis (Chronic) Female pelvic inflammatory disease (Chronic) 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) Otitis media (Chronic) Sinusitis (Chronic) Allergic rhinitis (Chronic) Diabetes mellitus (Chronic) Hyperlipidemia (Chronic) Ureteric stone (Chronic) Hypertriglyceridemia (Chronic) Microscopic hematuria (Chronic) Borderline personality disorder (Chronic) Menorrhagia (Chronic) Neck pain (Chronic) Osteoarthritis of right hip (Chronic) Pyelonephritis (Chronic) Sepsis (Chronic) Acute hyperglycemia (Chronic) Uncontrolled type 2 diabetes mellitus (Chronic) Cigarette smoker (Chronic) Depression (Chronic) Stage 1 acute kidney injury (Chronic) Headache (Chronic) DKA (diabetic ketoacidosis) (Chronic) Chronic SI joint pain (Chronic) Sacroiliitis (Chronic) Lumbar spondylosis (Chronic) Diarrhea (Chronic) Piriformis syndrome of right side (Chronic) Bilateral renal stones (Chronic) Kidney stone (Acute) Medical History Allergic rhinitis Anaphylaxis due to ingested food Ankle joint pain Anxiety disorder Borderline personality disorder Chronic depression Chronic pain Contusion, multiple sites Degeneration of lumbar intervertebral disc Diabetes mellitus Female pelvic inflammatory disease GERD (gastroesophageal reflux disease) History of tobacco use HPV in female Hyperglycemia Hyperglycemia due to type 2 diabetes mellitus Hyperlipidemia Hypertriglyceridemia Injury of hand, right Knee injury Low back pain Lumbar radiculopathy Lumbar spondylosis Major depression Menorrhagia Microscopic hematuria Migraine Neck pain Nicotine dependence Opioid dependence, uncomplicated Other low back pain Otitis media Pain in pelvis Piriformis syndrome of right side Pseudotumor cerebri PTSD (post-traumatic stress disorder) Right hip pain Right knee pain Sinusitis Sprain of right ankle Strain of lumbar region Type 2 diabetes mellitus without complications Ureteric stone Urinary tract infection Viral meningitis Surgical History H/O tooth extraction No pertinent past surgical history Family History Other Diabetes Kidney stone No pertinent family history Social History Smoking Status: Current every day smoker Alcohol Intake Frequency: holiday/special occasion only Substance Use: does not use Exam Narrative Narrative: Narrative: General General appearance: Present alert and in no apparent distress; Absent anxious, appears intoxicated or sleepy Head Head: Present atraumatic and normocephalic Eye Eye: Present EOMI; Absent scleral icterus or nystagmus ENT ENT: Present mucous membranes moist; Absent nasal congestion Neck Neck: Present full ROM and trachea midline Chest Chest: Present normal inspection and symmetric chest wall rise Respiratory Respiratory: Present normal lung sounds bilaterally; Absent respiratory distress, rales/crackles, wheezes, stridor or accessory muscle use Cardiovascular Cardiovascular: Present regular rate, normal rhythm and normal heart sounds Adbominal Abdominal: Present soft and normal bowel sounds; Absent distention, tenderness, guarding, rebound or rigidity Extremities Extremities: Present normal inspection and full ROM Back Back: Present normal inspection and full ROM Neurological Neurological: Present alert and oriented X3 Psychiatric Psychiatric: Present normal affect and normal mood Skin Skin: Present warm (WNL), dry and normal color Course Vital Signs Vital signs: Vital Signs Temperature 102.8 F H 12/08/22 04:01 Pulse Rate 92 H 12/08/22 04:01 Respiratory Rate 20 12/08/22 04:01 Blood Pressure 133/66 12/08/22 04:01 Pulse Oximetry (%) 95 12/08/22 04:01 Oxygen Delivery Method Room Air 12/08/22 04:01 Temperature 102.3 F H 12/08/22 05:42 Pulse Rate 98 H 12/08/22 05:42 Respiratory Rate 20 12/08/22 05:42 Blood Pressure 115/61 12/08/22 05:42 Pulse Oximetry (%) 96 12/08/22 05:42 Oxygen Delivery Method Room Air 12/08/22 05:42 MDM MDM Narrative Medical decision making narrative: Narrative: Patient is a 42-year-old female who presents to the emergency department due to upper respiratory symptoms as well as left flank pain. Differential diagnoses include COVID, influenza, pneumonia, other viral respiratory infection, kidney stone, and urinary tract infection. Patient's labs are significant for a leukocytosis with a white blood cell count of 15.4. Her urine dip demonstrates positive nitrate and trace leukocytes. Chest x-ray does not demonstrate any pneumonia. CT of the abdomen and pelvis does demonstrate a 4 mm kidney stone in the UPJ with moderate hydronephrosis on the left. Given patient's heart rate, temperature, and leukocytosis, as well as findings consistent with a urinary tract infection there is concern for urosepsis. Because of patient's kidney stone I did call and speak to Dr. Harrison who is taking care of patient previously. He agreed to see patient in the hospital today. I have spoken to Dr. Rayo and he has agreed to see and e valuate patient for admission. Lab Data 12/08/22 05:06 Labs: Lab Results 12/08/22 12/08/22 12/08/22 Range/Units 04:20 04:24 05:05 WBC (4.5-11.0) K/mcL RBC (3.59-5.38) M/mcL Hgb (11.2-15.7) g/dL Hct (34.1-44.9) % POC Hct 40.0 (36-48) MCV (80.0-100.0) fL MCH (26.0-34.0) pg MCHC (31.0-36.0) g/dL RDW (11.5-14.5) % Plt Count (140-440) K/mcL MPV (8.8-12.5) fL Immature Gran % (Auto) (0.0-0.5) % Neut % (Auto) (38.0-78.0) % Lymph % (Auto) (15.5-49.0) % [place] % (Auto) (1.0-12.0) % Eos % (Auto) (0.0-7.0) % Baso % (Auto) (0.0-2.0) % Lymph # (Auto) (1.50-4.80) K/mcL [place] # (Auto) (0.10-0.90) K/mcL Eos # (Auto) (0.00-0.70) K/mcL Baso # (Auto) (0.00-0.30) K/mcL Immature Gran # (0.00-0.05) K/mcl Absolute Neutrophils (1.80-8.00) K/mcL POC VBG pH 7.25 L (7.32-7.42) POC VBG pCO2 at Temp 32.5 L (41-51) POC VBG pO2 30 (25-40) POC VBG HCO3 14.2 L (24-28) POC VBG Total CO2 15.0 L (25-29) POC Venous O2 Sat 47.0 (40-70) POC VBG Base Excess -13.0 L (-2-2) VBG Lactic Acid 1.2 (0.5-2) POC Sodium 140 (133-145) POC Potassium 3.5 (3.3-5.1) POC Chloride 112 H (96-108) POC Total CO2 16.0 L (22-30) POC BUN 17 (6-20) POC Creatinine 1.1 (0.6-1.2) POC Glucose 111 H (70-105) POC WB Ioniz Calcium 1.23 (1.16-1.32) Procalcitonin 0.83 H (<0.10) ng/mL 12/08/22 Range/Units 05:06 WBC 15.4 H (4.5-11.0) K/mcL RBC 4.08 (3.59-5.38) M/mcL Hgb 12.5 (11.2-15.7) g/dL Hct 39.2 (34.1-44.9) % POC Hct (36-48) MCV 96.1 (80.0-100.0) fL MCH 30.6 (26.0-34.0) pg MCHC 31.9 (31.0-36.0) g/dL RDW 12.7 (11.5-14.5) % Plt Count 246 (140-440) K/mcL MPV 11.2 (8.8-12.5) fL Immature Gran % (Auto) 0.3 (0.0-0.5) % Neut % (Auto) 92.5 H (38.0-78.0) % Lymph % (Auto) 3.6 L (15.5-49.0) % [place] % (Auto) 3.2 (1.0-12.0) % Eos % (Auto) 0.1 (0.0-7.0) % Baso % (Auto) 0.3 (0.0-2.0) % Lymph # (Auto) 0.56 L (1.50-4.80) K/mcL [place] # (Auto) 0.49 (0.10-0.90) K/mcL Eos # (Auto) 0.02 (0.00-0.70) K/mcL Baso # (Auto) 0.05 (0.00-0.30) K/mcL Immature Gran # 0.05 (0.00-0.05) K/mcl Absolute Neutrophils 14.24 H (1.80-8.00) K/mcL POC VBG pH (7.32-7.42) POC VBG pCO2 at Temp (41-51) POC VBG pO2 (25-40) POC VBG HCO3 (24-28) POC VBG Total CO2 (25-29) POC Venous O2 Sat (40-70) POC VBG Base Excess (-2-2) VBG Lactic Acid (0.5-2) POC Sodium (133-145) POC Potassium (3.3-5.1) POC Chloride (96-108) POC Total CO2 (22-30) POC BUN (6-20) POC Creatinine (0.6-1.2) POC Glucose (70-105) POC WB Ioniz Calcium (1.16-1.32) Procalcitonin (<0.10) ng/mL Discharge Plan Patient/Caregiver Discharge Instructions Pt seen by PHOTOGRAPHER HELPER/PA only: No Clinical Impression: Urinary tract infection, Kidney stone Patient Disposition: Xfer As Inpt ([facility]) Follow up with: Mansi Block PA-C [Primary Care Provider] - Prescriptions: No Action diclofenac sodium 1 % gel 4 g topical QID Rx Instructions: apply to single knee, ankle, foot; for foot includes sole/toes/top of foot rizatriptan 10 mg tablet 10 mg PO QDAY PRN (Reason: migraines) Rx Instructions: as a single dose rosuvastatin 10 mg tablet 10 mg PO QDAY duloxetine 60 mg capsule,delayed release(DR/EC) 60 mg PO HS guaifenesin 600 mg tablet extended release 12hr 600 mg PO BID insulin aspart U-100 [Novolog FlexPen U-100 Insulin] 100 unit/mL (3 mL) insulin pen See Rx Instructions .ROUTE .COMPLEX Protocol: Insulin Sliding Scale, Med Condition: HUMALOG/NOVALOG SC SLIDING Dose/Route: SCALE Condition: FSBS < 70 Dose/Route: Give 4 Oz juice, or 15gm oral Instruction: Glucose, or 25ml D50W IV if Dose/Route: unable to take PO. Recheck in Instruction: 15 min and repeat if FSBS < 70 Condition: FSBS 71-140 Dose/Route: NO COVERAGE Condition: FSBS 141-170 Dose/Route: 2 UNITS Condition: FSBS 171-200 Dose/Route: 4 UNITS Condition: FSBS 201-250 Dose/Route: 6 UNITS Condition: FSBS 251-300 Dose/Route: 8 UNITS Condition: FSBS 301-350 Dose/Route: 10 UNITS Condition: FSBS 351-400 Dose/Route: 12 UNITS Condition: FSBS > 400 Dose/Route: 14 UNITS; REPEAT Q2H X2 Instruction: CONTINUE FOLLOWING SLIDING Condition: SCALE; IF STILL > 400; CALL Dose/Route: PHYSICIAN Rx Instructions: sliding scale 10 to 18 units Lantus Solostar U-100 Insulin 100 unit/mL (3 mL) insulin pen 84 unit SUB-Q QAM acetazolamide 500 MG capsule, extended release 1,000 mg PO BID propranolol 10 MG tablet 20 mg PO BID fluoxetine 20 mg capsule 40 mg PO BID Body, Hair, Skin and Nails 3-133 mg-mcg capsule 2 cap PO QAM loratadine 10 mg Tablet 10 mg PO QAM tizanidine 4 mg Tablet 8 mg PO BID acetaminophen-codeine 300-60 mg Tablet 1 tab PO BID tramadol 50 mg tablet 50 mg PO Q8H PRN (Reason: pain) Qty: 20 0RF
[2022-12-08] MEDS ORDERED: ACETAMINOPHEN 500 MG TABLET PO ONE (04:28)
[2022-12-08 05:51] LABS: Basophils # (Auto) 0.05 K/mcL (0.00-0.30); Basophils % (Auto) 0.3 % (0.0-2.0); Eosinophils # (Auto) 0.02 K/mcL (0.00-0.70); Eosinophils % (Auto) 0.1 % (0.0-7.0); Hematocrit 39.2 % (34.1-44.9); Hemoglobin 12.5 g/dL (11.2-15.7); Lymphocytes # (Auto) 0.56 K/mcL (1.50-4.80); Lymphocytes % (Auto) 3.6 % (15.5-49.0); Mean Cell Volume 96.1 fL (80.0-100.0); Mean Corpuscular HGB Conc 31.9 g/dL (31.0-36.0); Mean Platelet Volume 11.2 fL (8.8-12.5); Monocytes # (Auto) 0.49 K/mcL (0.10-0.90); Monocytes % (Auto) 3.2 % (1.0-12.0); Neutrophils % (Auto) 92.5 % (38.0-78.0); Platelet Count 246 K/mcL (140-440); RBC 4.08 M/mcL (3.59-5.38); Red Cell Distribution Width 12.7 % (11.5-14.5); WBC 15.4 K/mcL (4.5-11.0)
--- NOTE | 2022-12-08 05:57 | XRay Report ---
CLINICAL INFORMATION: Shortness of breath and cough COMPARISON: None. TECHNIQUE: Portable FINDINGS: The heart size, mediastinum and pulmonary vessels are unremarkable. Mild bibasilar atelectasis appreciated. There are no effusions. The bones and soft tissues are within normal limits. IMPRESSION: Normal chest. Interpreted and Authenticated by: Al Velazquez 12/08/22
--- NOTE | 2022-12-08 06:06 | Cat Scan Report ---
CLINICAL INFORMATION: Left flank pain COMPARISON: None. TECHNIQUE: 0.625 mm helical slices were obtained from the mid heart through the subtrochanteric regions. Following reconstruction, 2.5 mm sagittal, coronal and axial reformatted images were processed and reviewed at bone and soft tissue windows.The exam was performed using radiation dose optimization techniques including, but not limited to, automated exposure control, adjustment of the mA and/or kV according to patient size and use of iterative reconstruction technique. FINDINGS: The lung bases show subsegmental lingular atelectasis. No effusions. The visualized heart is grossly normal. Abdominal images show the noncontrasted gallbladder and bile ducts, liver, adrenal glands, spleen, pancreas and aorta are normal in size, configuration and attenuation without focal lesion. There is no free air, free fluid or adenopathy. Both noncontrasted kidneys are normal and symmetric in size, position, configuration and attenuation: The left is 10 cm in length and the right is 11 cm in length. There is a 4 mm stone in the left UPJ resulting in moderate left hydronephrosis renal edema and perinephric stranding. Multiple nonobstructing stones are widely disseminated throughout the calyces of both kidneys. These are greater than 15 in number and range up to 5 millimeters within a superior calyx of the left kidney.No solid or cystic renal lesion. Pelvic images show anteflexed uterus which is mildly enlarged: 9.5 x 2.7cm. It is unchanged from the 2020 exam. Both ovaries are normal :the left is 3.8 cm in length and the right is 2.9 centimeters and contains a 2.8 cm cyst. Scattered sigmoid diverticula appreciated no evidence of diverticulitis. The remaining large bowel, appendix region, small bowel and stomach are grossly normal. Bone windows show no osseous abnormality. IMPRESSION: 1. 4 mm stone in the left UPJ resulting in moderate left hydronephrosis and renal edema.Multiple small nonobstructing stones ranging up to 5 mm are scattered within the calyces of both kidneys. 2. Mild uterine enlargement stable likely indicating adenomyosis-stable. 3. 2.8 cm simple cyst right ovary-stable. Interpreted and Authenticated by: Al Velazquez 12/08/22
[2022-12-08] MEDS ORDERED: cefTRIAXone 1 GM VIAL IV ONE (06:11)
[2022-12-08] MEDS ORDERED: IBUPROFEN 600 MG TABLET PO ONE (06:12)
[2022-12-08 06:59] LABS: Appearance,Urine HAZY (Clear); Bacteria,Urine MOD /hpf (0); Bilirubin,Urine Negative (Negative); Color,Urine YELLOW; Culture Indicated,Urine yes; Glucose,Urine (UA) Negative (Negative); Ketones,Urine Negative (Negative); Leukocyte Esterase,Urine 25 /uL (Negative); Mucus,Urine FEW /hpf; Nitrate,Urine Negative (Negative); Protein,Urine Negative (Negative); Specific Gravity,Urine 1.015 (1.000-1.035); Urine Blood Negative (Negative); Urine RBC 3 /hpf (0-3); Urine Squamous Epithelial Cell 2 /hpf (0-4); Urine Transitional Epi Cells < 1 /hpf (0-2); Urine WBC 18 /hpf (0-4); Urobilinogen,Urine Negative
[2022-12-08] MEDS ORDERED: ONDANSETRON 4 MG/2 ML VIAL IV ONE (07:03)
[2022-12-08] MEDS ORDERED: KETOROLAC 30 MG/ML VIAL IV PRN (07:03)
[2022-12-08] MEDS ORDERED: LACTATED RINGERS 1,000 ML IV SCH ×3 (07:15→17:00)
--- NOTE | 2022-12-08 07:56 | Urology Consult Note ---
HPI Date of Consult Consult Date: 12/08/22 Primary Care Provider: Mansi Block Consult Narrative History of present illness: Conchita Dyer is a 42-year-old female who is well-known to me. She has known bilateral renal stones and recently underwent a right ureteroscopy laser lithotripsy and stent placement for multiple nonobstructive small calyceal stones. On 10/27/2022 she was seen in the office and I removed her ureteral stent. On 11/17/2022 she returned to the office and we discussed her change in symptoms. At that time she had decided not to pursue any treatment of her left renal calculi as they 2 were small and nonobstructive and she did not see any improvement with symptoms (back pain) with treatment of the right ureteral calculi. Patient states that yesterday she began to feel achy and generalized malaise. Pain eventually localized to the left flank area. She spiked a temperature to 103 and presented to the emergency room. In the emergency room she was evaluated with CT scan which showed again multiple nonobstructive renal calyceal stones but also a 4 mm left proximal ureteral stone with moderate hydronephrosis. Because of her septic like symptoms she has been admitted by the hospitalist for IV antibiotics and urologic consultation has been requested regarding her left proximal ureteral stone. cc:: CC: Constitutional Constitutional: Present chills, fever(s) and malaise EENT Eyes: Absent change in vision Nose, mouth and throat: Absent sore throat Cardiovascular Cardiovascular: Absent chest pain, dyspnea or palpatations Respiratory Respiratory: Absent cough, dyspnea or chest congestion Gastrointestinal Gastrointestinal: Present abdominal pain; Absent nausea Genitourinary Genitourinary: Present as per HPI Musculoskeletal Musculoskeletal: Present arthralgias Integumentary Integumentary: Absent rash Neurological Neurological: Present headache(s) PFSH PFSH All Active Problems Left ureteral calculus (Acute) Kidney stone (Acute) Bilateral renal stones (Chronic) Urinary tract infection (Chronic) Viral meningitis (Chronic) Contusion, multiple sites (Chronic) Ankle sprain and strain (Chronic) Allergy, food (Chronic) Allergic reaction (Chronic) Migraine (Chronic) Chronic pain (Chronic) Opioid dependence, uncomplicated (Chronic) Low back pain (Chronic) Chronic depression (Chronic) History of tobacco use (Chronic) GERD (gastroesophageal reflux disease) (Chronic) Type 2 diabetes mellitus without complications (Chronic) PTSD (post-traumatic stress disorder) (Chronic) Anxiety disorder (Chronic) Injury of hand, right (Chronic) Hyperglycemia due to type 2 diabetes mellitus (Chronic) Strain of lumbar region (Chronic) Lumbar radiculopathy (Chronic) Dental abscess (Chronic) Hyperglycemia (Chronic) Other low back pain (Chronic) Degeneration of lumbar intervertebral disc (Chronic) Right hip pain (Chronic) Major depression (Chronic) Pseudotumor cerebri (Chronic) Anaphylaxis due to ingested food (Chronic) Sprain of right ankle (Chronic) Knee injury (Chronic) Right knee pain (Chronic) Ankle joint pain (Chronic) Nicotine dependence (Chronic) Pain in pelvis (Chronic) Female pelvic inflammatory disease (Chronic) 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) Otitis media (Chronic) Sinusitis (Chronic) Allergic rhinitis (Chronic) Diabetes mellitus (Chronic) Hyperlipidemia (Chronic) Ureteric stone (Chronic) Hypertriglyceridemia (Chronic) Microscopic hematuria (Chronic) Borderline personality disorder (Chronic) Menorrhagia (Chronic) Neck pain (Chronic) Osteoarthritis of right hip (Chronic) Pyelonephritis (Chronic) Sepsis (Chronic) Acute hyperglycemia (Chronic) Uncontrolled type 2 diabetes mellitus (Chronic) Cigarette smoker (Chronic) Depression (Chronic) Stage 1 acute kidney injury (Chronic) Headache (Chronic) DKA (diabetic ketoacidosis) (Chronic) Chronic SI joint pain (Chronic) Sacroiliitis (Chronic) Lumbar spondylosis (Chronic) Diarrhea (Chronic) Piriformis syndrome of right side (Chronic) Medical History Allergic rhinitis Anaphylaxis due to ingested food Ankle joint pain Anxiety disorder Borderline personality disorder Chronic depression Chronic pain Contusion, multiple sites Degeneration of lumbar intervertebral disc Diabetes mellitus Female pelvic inflammatory disease GERD (gastroesophageal reflux disease) History of tobacco use HPV in female Hyperglycemia Hyperglycemia due to type 2 diabetes mellitus Hyperlipidemia Hypertriglyceridemia Injury of hand, right Knee injury Low back pain Lumbar radiculopathy Lumbar spondylosis Major depression Menorrhagia Microscopic hematuria Migraine Neck pain Nicotine dependence Opioid dependence, uncomplicated Other low back pain Otitis media Pain in pelvis Piriformis syndrome of right side Pseudotumor cerebri PTSD (post-traumatic stress disorder) Right hip pain Right knee pain Sinusitis Sprain of right ankle Strain of lumbar region Type 2 diabetes mellitus without complications Ureteric stone Urinary tract infection Viral meningitis Surgical History H/O tooth extraction No pertinent past surgical history Family History Other Diabetes Kidney stone No pertinent family history Social History smoking status: Current every day smoker alcohol intake frequency: holiday/special occasion only substance use type: does not use MEDS/ALLERGIES Home Medications and Allergies Home Medications Medication Instructions Recorded Confirmed Type acetazolamide 500 mg 1,000 mg PO BID 01/14/16 10/18/22 History capsule,extended release propranolol 10 mg tablet 20 mg PO BID 01/14/16 10/18/22 History fluoxetine 20 mg capsule 40 mg PO BID 12/07/18 10/18/22 History duloxetine 60 mg capsule,delayed 60 mg PO HS 09/07/21 10/18/22 History release guaifenesin 600 mg tablet, 600 mg PO BID 09/07/21 10/18/22 History extended release 12 hr rosuvastatin 10 mg tablet 10 mg PO QDAY 09/07/21 10/18/22 History loratadine 10 mg tablet 10 mg PO QAM 09/20/21 10/18/22 History insulin aspart U-100 100 unit/mL See Rx Instructions .Route .COMPLEX 02/28/22 10/18/22 History (3 mL) subcutaneous pen (Novolog FlexPen U-100 Insulin aspart) insulin glargine 100 unit/mL (3 84 unit subcut QAM 02/28/22 10/18/22 History mL) subcutaneous pen (Lantus Solostar U-100 Insulin) multivit,Ca,iron,bhv-OV-[id number]-BTNR 2 cap PO QAM 05/05/22 10/18/22 History 3 mg-133 mcg capsule (Body, Hair, Skin and Nails) diclofenac sodium 1 % topical gel 4 g topical QID 09/13/22 10/18/22 History rizatriptan 10 mg tablet 10 mg PO QDAY PRN migraines 09/13/22 10/18/22 History acetaminophen 300 mg-codeine 60 mg 1 tab PO BID 10/12/22 10/18/22 History tablet tizanidine 4 mg tablet 8 mg PO BID 10/12/22 10/18/22 History tramadol 50 mg tablet 50 mg PO Q8H PRN pain #20 tabs 10/18/22 Rx Allergies Allergy/AdvReac Type Severity Reaction Status Date / Time almond Allergy Severe Anaphylaxis Verified 10/18/22 06:13 nut - unspecified Allergy Intermediate Other Verified 10/18/22 06:13 gluten Allergy Mild Verified 10/18/22 06:13 metformin Allergy Mild Rash Verified 10/18/22 06:13 soy Allergy Mild Rash Verified 10/18/22 06:13 egg AdvReac Intermediate Nausea, Verified 10/18/22 06:13 vomiting, rash Pork/Porcine Containing AdvReac Intermediate Hives Verified 10/18/22 06:13 Products glipizide AdvReac Mild Fainting Verified 10/18/22 06:13 grass pollen AdvReac Mild Itching Verified 10/18/22 06:13 lactose AdvReac Mild Gastrointestinal Verified 10/18/22 06:13 Upset levofloxacin [From Levaquin] AdvReac Mild Dizziness Verified 10/18/22 06:13 gibbs Allergy Mild Rash Uncoded 09/23/22 08:30 ham Allergy Mild Rash Uncoded 09/23/22 08:30 wood AdvReac Mild Itching Uncoded 09/23/22 08:30 Physical Examination Vital Signs Vital signs: Temp Pulse Resp BP Pulse Ox O2 Del Method 102.3 F H 86 18 98/45 95 Room Air 12/08/22 05:42 12/08/22 07:38 12/08/22 07:38 12/08/22 07:17 12/08/22 07:38 12/08/22 05:42 General physical appearance General physical exam: well developed, well nourished and no distress Neck Neck exam: no masses Cardiovascular Cardiovascular exam IM: Present normal rate and rhythm Respiratory Respiratory exam: normal expansion, normal respiratory effort and clear to auscultation Abdomen Abdomen: Present soft and tender; Absent masses Integumentary Integumentary: Present no rash Neurologic Neurologic: Present normal sensation Musculoskeletal Musculoskeletal: Present normal posture Psychiatric Psychiatric: Present oriented to time, oriented to person, oriented to place and speech is normal Results Labs 12/08/22 05:06 Labs: Abnormal lab results 12/08/22 12/08/22 12/08/22 Range/Units 04:20 04:24 05:05 WBC (4.5-11.0) K/mcL Neut % (Auto) (38.0-78.0) % Lymph % (Auto) (15.5-49.0) % Lymph # (Auto) (1.50-4.80) K/mcL Absolute Neutrophils (1.80-8.00) K/mcL POC VBG pH 7.25 L (7.32-7.42) POC VBG pCO2 at Temp 32.5 L (41-51) POC VBG HCO3 14.2 L (24-28) POC VBG Total CO2 15.0 L (25-29) POC VBG Base Excess -13.0 L (-2-2) POC Chloride 112 H (96-108) POC Total CO2 16.0 L (22-30) POC Glucose 111 H (70-105) Procalcitonin 0.83 H (<0.10) ng/mL Urine Appearance (Clear) Ur Leukocyte Esterase (Negative) /uL Urine WBC (0-4) /hpf Urine Bacteria (0) /hpf Urine Mucus (None) /hpf 12/08/22 12/08/22 Range/Units 05:06 06:03 WBC 15.4 H (4.5-11.0) K/mcL Neut % (Auto) 92.5 H (38.0-78.0) % Lymph % (Auto) 3.6 L (15.5-49.0) % Lymph # (Auto) 0.56 L (1.50-4.80) K/mcL Absolute Neutrophils 14.24 H (1.80-8.00) K/mcL POC VBG pH (7.32-7.42) POC VBG pCO2 at Temp (41-51) POC VBG HCO3 (24-28) POC VBG Total CO2 (25-29) POC VBG Base Excess (-2-2) POC Chloride (96-108) POC Total CO2 (22-30) POC Glucose (70-105) Procalcitonin (<0.10) ng/mL Urine Appearance Hazy A (Clear) Ur Leukocyte Esterase 25 A (Negative) /uL Urine WBC 18 H (0-4) /hpf Urine Bacteria Mod A (0) /hpf Urine Mucus Few A (None) /hpf All other labs normal. Imaging CT scan - abdomen: report reviewed and image reviewed (4 mm left proximal ureteral stone with moderate hydronephrosis multiple calyceal stones bilaterally) A/P Assessment and plan (1) Bilateral renal stones: Status: Chronic (2) Left ureteral calculus: Status: Acute (3) Urinary tract infection: Status: Chronic Plan Patient with a obstructive left small ureteral calculus and evidence of urosepsis. I have discussed these findings with the patient and her significant other this morning. We have discussed the options of continued antibiotic therapy versus antibiotic therapy and ureteral stent possible treatment of her stone. We discussed the pros and cons of each option. She has elected to undergo cystoscopy, left ureteral stent placement, possible ureteroscopy and treatment of her stone. I have discussed the fact that if there is gross evidence of infection I will not treat the stone at this time but rather just drain the system with the ureteral stent. If I feel I can safely treat the stone I will do so. We will plan to schedule this procedure for later today. Procedure, risk, options, expectations of all been discussed, her questions have been answered, and she wishes to proceed Time Spent With Patient Time: Total time spent is greater than 50% in coordination of care (as documented) at patient's floor/unit and/or counseling patient:
[2022-12-08] MEDS ORDERED: IPRATROPIUM/ALBUTEROL 3 ML AMPUL.NEB NEB PRN ×2 (08:16→16:55)
[2022-12-08] MEDS ORDERED: POLYETHYLENE GLYCOL 3350 17 GM PACKET PO PRN (08:16)
[2022-12-08] MEDS ORDERED: POTASSIUM CHLORIDE 40 MEQ in DEXTROSE 5% IN WATER 500 ML IV PRN (08:16)
[2022-12-08] MEDS ORDERED: SENNOSIDES 1 TABLET PO PRN (08:16)
[2022-12-08] MEDS ORDERED: ONDANSETRON 4 MG/2 ML VIAL IV PRN (08:16)
[2022-12-08] MEDS ORDERED: DEXTROSE 50% 50 ML VIAL IV PRN (08:16)
[2022-12-08] MEDS ORDERED: MAGNESIUM SULFATE 2 GM/50 ML BAG IV PRN (08:16)
[2022-12-08] MEDS ORDERED: DEXTROSE 31 GM ORAL.SUSP PO PRN (08:16)
[2022-12-08] MEDS ORDERED: POTASSIUM CHLORIDE 20 MEQ TABLET PO PRN ×2 (08:16)
[2022-12-08] MEDS ORDERED: HYDROcodone/APAP 5/325MG TABLET PO PRN (08:16)
--- NOTE | 2022-12-08 08:16 | Internal Med History&Physical ---
HPI History of Present Illness Patient information: Note initiated : 12/08/22 at 8:07 am Service Date, if different from initiated Date: [] Patient: Conchita Dyer 42 y/o F admitted on for fever. Chief Complaint: [] History of present illness: Ms. Dyer is a 42 year old F Presents to the ED with flulike symptoms. She began having body aches yesterday including headache had left sharp constent flank pain, fevers/shaking. She had an episode of nausea and vomiting. No diarrhea. Temperature 103 at home. When she woke up in the morning she felt so bad that she had her call 911. In the ED she was worked up and had a CT abdomen pelvis which showed a 4 mm kidney stone at the UPJ junction with moderate hydronephrosis on the left. Chest x-ray unremarkable. Patient diagnosed with UTI sepsis and hydronephrosis from obstructing stone. Dr. Harrison was contacted. Started on IV antibiotics and IV fluids in the ED. flu/covid neg in ED Review of Systems: Pertinent positives as above. Denies chest pain/dyspnea/diarrhea. Remaining 10 point review of system reviewed negative PHYSICAL EXAM General: Alert, Awake, No acute Distress, obese Eyes/N/T: EOMI, no scleral icterus, PERRL, Head/Neck: neck supple, full ROM, normocephalic atraumatic CV: RRR, No murmurs, normal s1/s2 Pulm: Clear b/l, no wheezing/rhonchi/rales, no respiratory distress Abd: soft, nontender, +BS x4 Ext: no clubbing/cyanosis/edema, nontender Neuro: Alert, no focal deficits, moves all extremities, CN 2-12 grossly intact, sensations intact b/l upper/lower Psychiatric: Skin: warm/dry, normal color PFSH PFSH All Active Problems Urinary tract infection (Chronic) Viral meningitis (Chronic) Contusion, multiple sites (Chronic) Ankle sprain and strain (Chronic) Allergy, food (Chronic) Allergic reaction (Chronic) Migraine (Chronic) Chronic pain (Chronic) Opioid dependence, uncomplicated (Chronic) Low back pain (Chronic) Chronic depression (Chronic) History of tobacco use (Chronic) GERD (gastroesophageal reflux disease) (Chronic) Type 2 diabetes mellitus without complications (Chronic) PTSD (post-traumatic stress disorder) (Chronic) Anxiety disorder (Chronic) Injury of hand, right (Chronic) Hyperglycemia due to type 2 diabetes mellitus (Chronic) Strain of lumbar region (Chronic) Lumbar radiculopathy (Chronic) Dental abscess (Chronic) Hyperglycemia (Chronic) Other low back pain (Chronic) Degeneration of lumbar intervertebral disc (Chronic) Right hip pain (Chronic) Major depression (Chronic) Pseudotumor cerebri (Chronic) Anaphylaxis due to ingested food (Chronic) Sprain of right ankle (Chronic) Knee injury (Chronic) Right knee pain (Chronic) Ankle joint pain (Chronic) Nicotine dependence (Chronic) Pain in pelvis (Chronic) Female pelvic inflammatory disease (Chronic) 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) Otitis media (Chronic) Sinusitis (Chronic) Allergic rhinitis (Chronic) Diabetes mellitus (Chronic) Hyperlipidemia (Chronic) Ureteric stone (Chronic) Hypertriglyceridemia (Chronic) Microscopic hematuria (Chronic) Borderline personality disorder (Chronic) Menorrhagia (Chronic) Neck pain (Chronic) Osteoarthritis of right hip (Chronic) Pyelonephritis (Chronic) Sepsis (Chronic) Acute hyperglycemia (Chronic) Uncontrolled type 2 diabetes mellitus (Chronic) Cigarette smoker (Chronic) Depression (Chronic) Stage 1 acute kidney injury (Chronic) Headache (Chronic) DKA (diabetic ketoacidosis) (Chronic) Chronic SI joint pain (Chronic) Sacroiliitis (Chronic) Lumbar spondylosis (Chronic) Diarrhea (Chronic) Piriformis syndrome of right side (Chronic) Bilateral renal stones (Chronic) Kidney stone (Acute) Left ureteral calculus (Acute) Medical History Allergic rhinitis Anaphylaxis due to ingested food Ankle joint pain Anxiety disorder Borderline personality disorder Chronic depression Chronic pain Contusion, multiple sites Degeneration of lumbar intervertebral disc Diabetes mellitus Female pelvic inflammatory disease GERD (gastroesophageal reflux disease) History of tobacco use HPV in female Hyperglycemia Hyperglycemia due to type 2 diabetes mellitus Hyperlipidemia Hypertriglyceridemia Injury of hand, right Knee injury Low back pain Lumbar radiculopathy Lumbar spondylosis Major depression Menorrhagia Microscopic hematuria Migraine Neck pain Nicotine dependence Opioid dependence, uncomplicated Other low back pain Otitis media Pain in pelvis Piriformis syndrome of right side Pseudotumor cerebri PTSD (post-traumatic stress disorder) Right hip pain Right knee pain Sinusitis Sprain of right ankle Strain of lumbar region Type 2 diabetes mellitus without complications Ureteric stone Urinary tract infection Viral meningitis Surgical History H/O tooth extraction No pertinent past surgical history Family History Other Diabetes Kidney stone No pertinent family history Social History smoking status: Current every day smoker alcohol intake frequency: holiday/special occasion only substance use type: does not use MEDS/ALLERGIES Home Medications and Allergies Home Medications Medication Instructions Recorded Confirmed Type acetazolamide 500 mg 1,000 mg PO BID 01/14/16 10/18/22 History capsule,extended release propranolol 10 mg tablet 20 mg PO BID 01/14/16 10/18/22 History fluoxetine 20 mg capsule 40 mg PO BID 12/07/18 10/18/22 History duloxetine 60 mg capsule,delayed 60 mg PO HS 09/07/21 10/18/22 History release guaifenesin 600 mg tablet, 600 mg PO BID 09/07/21 10/18/22 History extended release 12 hr rosuvastatin 10 mg tablet 10 mg PO QDAY 09/07/21 10/18/22 History loratadine 10 mg tablet 10 mg PO QAM 09/20/21 10/18/22 History insulin aspart U-100 100 unit/mL See Rx Instructions .Route .COMPLEX 02/28/22 10/18/22 History (3 mL) subcutaneous pen (Novolog FlexPen U-100 Insulin aspart) insulin glargine 100 unit/mL (3 84 unit subcut QAM 02/28/22 10/18/22 History mL) subcutaneous pen (Lantus Solostar U-100 Insulin) multivit,Ca,iron,[id number]-VODA 2 cap PO QAM 05/05/22 10/18/22 History 3 mg-133 mcg capsule (Body, Hair, Skin and Nails) diclofenac sodium 1 % topical gel 4 g topical QID 09/13/22 10/18/22 History rizatriptan 10 mg tablet 10 mg PO QDAY PRN migraines 09/13/22 10/18/22 History acetaminophen 300 mg-codeine 60 mg 1 tab PO BID 10/12/22 10/18/22 History tablet tizanidine 4 mg tablet 8 mg PO BID 10/12/22 10/18/22 History tramadol 50 mg tablet 50 mg PO Q8H PRN pain #20 tabs 10/18/22 Rx Allergies Allergy/AdvReac Type Severity Reaction Status Date / Time almond Allergy Severe Anaphylaxis Verified 10/18/22 06:13 nut - unspecified Allergy Intermediate Other Verified 10/18/22 06:13 gluten Allergy Mild Verified 10/18/22 06:13 metformin Allergy Mild Rash Verified 10/18/22 06:13 soy Allergy Mild Rash Verified 10/18/22 06:13 egg AdvReac Intermediate Nausea, Verified 10/18/22 06:13 vomiting, rash Pork/Porcine Containing AdvReac Intermediate Hives Verified 10/18/22 06:13 Products glipizide AdvReac Mild Fainting Verified 10/18/22 06:13 grass pollen AdvReac Mild Itching Verified 10/18/22 06:13 lactose AdvReac Mild Gastrointestinal Verified 10/18/22 06:13 Upset levofloxacin [From Levaquin] AdvReac Mild Dizziness Verified 10/18/22 06:13 gibbs Allergy Mild Rash Uncoded 09/23/22 08:30 ham Allergy Mild Rash Uncoded 09/23/22 08:30 wood AdvReac Mild Itching Uncoded 09/23/22 08:30 EXAM Constitutional Vitals: Temp Pulse Resp BP Pulse Ox O2 Del Method 102.3 F H 86 18 98/45 95 Room Air 12/08/22 05:42 12/08/22 07:38 12/08/22 07:38 12/08/22 07:17 12/08/22 07:38 12/08/22 05:42 DATA Data Completed and Pending Labs: Labs from last 24 hours 12/08/22 12/08/22 12/08/22 06:03 05:06 05:05 WBC 15.4 H RBC 4.08 Hgb 12.5 Hct 39.2 POC Hct MCV 96.1 MCH 30.6 MCHC 31.9 RDW 12.7 Plt Count 246 MPV 11.2 Immature Gran % (Auto) 0.3 Neut % (Auto) 92.5 H Lymph % (Auto) 3.6 L Wheeler % (Auto) 3.2 Eos % (Auto) 0.1 Baso % (Auto) 0.3 Lymph # (Auto) 0.56 L Wheeler # (Auto) 0.49 Eos # (Auto) 0.02 Baso # (Auto) 0.05 Immature Gran # 0.05 Absolute Neutrophils 14.24 H POC VBG pH POC VBG pCO2 at Temp POC VBG pO2 POC VBG HCO3 POC VBG Total CO2 POC Venous O2 Sat POC VBG Base Excess VBG Lactic Acid POC Sodium POC Potassium POC Chloride POC Total CO2 POC BUN POC Creatinine POC Glucose POC WB Ioniz Calcium Procalcitonin 0.83 H Urine Color Yellow Urine Appearance Hazy A Urine pH 5.0 Ur Specific [place] 1.015 Urine Protein Negative Urine Glucose (UA) Negative Urine Ketones Negative Urine Occult Blood Negative Urine Nitrate Negative Urine Bilirubin Negative Urine Urobilinogen Negative Ur Leukocyte Esterase 25 A Urine RBC 3 Urine WBC 18 H Ur Squamous Epith Cells 2 Ur Transition Epith Cell < 1 Urine Bacteria Mod A Urine Mucus Few A Ur Culture Indicated? yes 12/08/22 12/08/22 04:24 04:20 WBC RBC Hgb Hct POC Hct 40.0 MCV MCH MCHC RDW Plt Count MPV Immature Gran % (Auto) Neut % (Auto) Lymph % (Auto) Wheeler % (Auto) Eos % (Auto) Baso % (Auto) Lymph # (Auto) Wheeler # (Auto) Eos # (Auto) Baso # (Auto) Immature Gran # Absolute Neutrophils POC VBG pH 7.25 L POC VBG pCO2 at Temp 32.5 L POC VBG pO2 30 POC VBG HCO3 14.2 L POC VBG Total CO2 15.0 L POC Venous O2 Sat 47.0 POC VBG Base Excess -13.0 L VBG Lactic Acid 1.2 POC Sodium 140 POC Potassium 3.5 POC Chloride 112 H POC Total CO2 16.0 L POC BUN 17 POC Creatinine 1.1 POC Glucose 111 H POC WB Ioniz Calcium 1.23 Procalcitonin Urine Color Urine Appearance Urine pH Ur Specific [place] Urine Protein Urine Glucose (UA) Urine Ketones Urine Occult Blood Urine Nitrate Urine Bilirubin Urine Urobilinogen Ur Leukocyte Esterase Urine RBC Urine WBC Ur Squamous Epith Cells Ur Transition Epith Cell Urine Bacteria Urine Mucus Ur Culture Indicated? A/P Narrative A/P Narrative: A: *UTI: *Sepsis: *Left hydronephrosis with obstructing UPJ stone: *Metabolic acidosis, NG: *DM2: *Hyperlipidemia: *Depression/anxiety: *Obesity: BMI 36 *Pseudotumor cerebri: On acetazolamide *Migraines: *Tobacco abuse: P: -Dr. Harrison for urology -IVF -Rocephin -monitor renal fxn/uop -f/u chem/cbc -Basal and SSI -Continue home psych medications, statin -Home medication reconciliation -Smoke cessation counseling >3 minutes -ppx: SCDs/Ambulation Time Spent With Patient Time: Total time spent is greater than 50% in coordination of care (as documented) at patient's floor/unit and/or counseling patient: Initial: Total time with patient: 55 - 74 minutes
[2022-12-08] MEDS ORDERED: cefTRIAXone 1 GM in DEXTROSE 5% IN WATER 50 ML IV SCH (08:30)
[2022-12-08 09:07] LABS: ALT/SGPT 47 U/L (<40); AST/SGOT 26 U/L (<32); Albumin 3.5 gm/dL (3.2-5.2); Alkaline Phosphatase 88 U/L (39-117); Bilirubin,Direct < 0.2 mg/dL (0-0.3); Bilirubin,Total < 0.2 mg/dL (0.1-1.0); Globulin 2.6 gm/dL (2.2-3.7)
--- NOTE | 2022-12-08 10:03 | Emergency Department Note ---
Course Course Course Narrative: Assumed care of the patient at 0700. Jerauld report, reviewed labs and discussed case with Dr. Garcia who is present in ED to see the patient. Patient has a left sided kidney stone with a UTI. The plan is that Dr. Garcia will either try to retrieve the stone, or place a stent in the left ureter today. Vital Signs Vital signs: Vital Signs Temperature 102.8 F H 12/08/22 04:01 Pulse Rate 92 H 12/08/22 04:01 Respiratory Rate 20 12/08/22 04:01 Blood Pressure 133/66 12/08/22 04:01 Pulse Oximetry (%) 95 12/08/22 04:01 Oxygen Delivery Method Room Air 12/08/22 04:01 Temperature 102.3 F H 12/08/22 05:42 Pulse Rate 74 12/08/22 08:38 Respiratory Rate 17 12/08/22 08:38 Blood Pressure 98/45 12/08/22 07:17 Pulse Oximetry (%) 95 12/08/22 08:38 Oxygen Delivery Method Room Air 12/08/22 05:42 MDM MDM Narrative Medical decision making narrative: Narrative: Lab Data 12/08/22 05:06 Labs: Lab Results 12/08/22 12/08/22 12/08/22 Range/Units 04:20 04:24 05:05 WBC (4.5-11.0) K/mcL RBC (3.59-5.38) M/mcL Hgb (11.2-15.7) g/dL Hct (34.1-44.9) % POC Hct 40.0 (36-48) MCV (80.0-100.0) fL MCH (26.0-34.0) pg MCHC (31.0-36.0) g/dL RDW (11.5-14.5) % Plt Count (140-440) K/mcL MPV (8.8-12.5) fL Immature Gran % (Auto) (0.0-0.5) % Neut % (Auto) (38.0-78.0) % Lymph % (Auto) (15.5-49.0) % Hood % (Auto) (1.0-12.0) % Eos % (Auto) (0.0-7.0) % Baso % (Auto) (0.0-2.0) % Lymph # (Auto) (1.50-4.80) K/mcL Hood # (Auto) (0.10-0.90) K/mcL Eos # (Auto) (0.00-0.70) K/mcL Baso # (Auto) (0.00-0.30) K/mcL Immature Gran # (0.00-0.05) K/mcl Absolute Neutrophils (1.80-8.00) K/mcL POC VBG pH 7.25 L (7.32-7.42) POC VBG pCO2 at Temp 32.5 L (41-51) POC VBG pO2 30 (25-40) POC VBG HCO3 14.2 L (24-28) POC VBG Total CO2 15.0 L (25-29) POC Venous O2 Sat 47.0 (40-70) POC VBG Base Excess -13.0 L (-2-2) VBG Lactic Acid 1.2 (0.5-2) POC Sodium 140 (133-145) POC Potassium 3.5 (3.3-5.1) POC Chloride 112 H (96-108) POC Total CO2 16.0 L (22-30) POC BUN 17 (6-20) POC Creatinine 1.1 (0.6-1.2) POC Glucose 111 H (70-105) POC WB Ioniz Calcium 1.23 (1.16-1.32) Total Bilirubin (0.1-1.0) mg/dL Direct Bilirubin (0-0.3) mg/dL AST (<32) U/L ALT (<40) U/L Alkaline Phosphatase (39-117) U/L Total Protein (5.9-8.4) gm/dL Albumin (3.2-5.2) gm/dL Globulin (2.2-3.7) gm/dL Procalcitonin 0.83 H (<0.10) ng/mL Urine Color Urine Appearance (Clear) Urine pH (5.0-9.0) Ur Specific [place] (1.000-1.035) Urine Protein (Negative) mg/dL Urine Glucose (UA) (Negative) mg/dL Urine Ketones (Negative) mg/dL Urine Occult Blood (Negative) mg/dL Urine Nitrate (Negative) Urine Bilirubin (Negative) mg/dL Urine Urobilinogen mg/dL Ur Leukocyte Esterase (Negative) /uL Urine RBC (0-3) /hpf Urine WBC (0-4) /hpf Ur Squamous Epith Cells (0-4) /hpf Ur Transition Epith Cell (0-2) /hpf Urine Bacteria (0) /hpf Urine Mucus (None) /hpf Ur Culture Indicated? 12/08/22 12/08/22 12/08/22 Range/Units 05:06 06:03 08:19 WBC 15.4 H (4.5-11.0) K/mcL RBC 4.08 (3.59-5.38) M/mcL Hgb 12.5 (11.2-15.7) g/dL Hct 39.2 (34.1-44.9) % POC Hct (36-48) MCV 96.1 (80.0-100.0) fL MCH 30.6 (26.0-34.0) pg MCHC 31.9 (31.0-36.0) g/dL RDW 12.7 (11.5-14.5) % Plt Count 246 (140-440) K/mcL MPV 11.2 (8.8-12.5) fL Immature Gran % (Auto) 0.3 (0.0-0.5) % Neut % (Auto) 92.5 H (38.0-78.0) % Lymph % (Auto) 3.6 L (15.5-49.0) % Hood % (Auto) 3.2 (1.0-12.0) % Eos % (Auto) 0.1 (0.0-7.0) % Baso % (Auto) 0.3 (0.0-2.0) % Lymph # (Auto) 0.56 L (1.50-4.80) K/mcL [place] # (Auto) 0.49 (0.10-0.90) K/mcL Eos # (Auto) 0.02 (0.00-0.70) K/mcL Baso # (Auto) 0.05 (0.00-0.30) K/mcL Immature Gran # 0.05 (0.00-0.05) K/mcl Absolute Neutrophils 14.24 H (1.80-8.00) K/mcL POC VBG pH (7.32-7.42) POC VBG pCO2 at Temp (41-51) POC VBG pO2 (25-40) POC VBG HCO3 (24-28) POC VBG Total CO2 (25-29) POC Venous O2 Sat (40-70) POC VBG Base Excess (-2-2) VBG Lactic Acid (0.5-2) POC Sodium (133-145) POC Potassium (3.3-5.1) POC Chloride (96-108) POC Total CO2 (22-30) POC BUN (6-20) POC Creatinine (0.6-1.2) POC Glucose (70-105) POC WB Ioniz Calcium (1.16-1.32) Total Bilirubin < 0.2 (0.1-1.0) mg/dL Direct Bilirubin < 0.2 (0-0.3) mg/dL AST 26 (<32) U/L ALT 47 H (<40) U/L Alkaline Phosphatase 88 (39-117) U/L Total Protein 6.1 (5.9-8.4) gm/dL Albumin 3.5 (3.2-5.2) gm/dL Globulin 2.6 (2.2-3.7) gm/dL Procalcitonin (<0.10) ng/mL Urine Color Yellow Urine Appearance Hazy A (Clear) Urine pH 5.0 (5.0-9.0) Ur Specific [place] 1.015 (1.000-1.035) Urine Protein Negative (Negative) mg/dL Urine Glucose (UA) Negative (Negative) mg/dL Urine Ketones Negative (Negative) mg/dL Urine Occult Blood Negative (Negative) mg/dL Urine Nitrate Negative (Negative) Urine Bilirubin Negative (Negative) mg/dL Urine Urobilinogen Negative mg/dL Ur Leukocyte Esterase 25 A (Negative) /uL Urine RBC 3 (0-3) /hpf Urine WBC 18 H (0-4) /hpf Ur Squamous Epith Cells 2 (0-4) /hpf Ur Transition Epith Cell < 1 (0-2) /hpf Urine Bacteria Mod A (0) /hpf Urine Mucus Few A (None) /hpf Ur Culture Indicated? yes Discharge Plan Patient/Caregiver Discharge Instructions Pt seen by PONY TRIMMER/PA only: No Clinical Impression: Urinary tract infection, Kidney stone Patient Disposition: Xfer As Inpt ([facility]) Follow up with: Mansi Block PA-C [Primary Care Provider] - Prescriptions: No Action diclofenac sodium 1 % gel 4 g topical QID Rx Instructions: apply to single knee, ankle, foot; for foot includes sole/toes/top of foot rizatriptan 10 mg tablet 10 mg PO QDAY PRN (Reason: migraines) Rx Instructions: as a single dose rosuvastatin 10 mg tablet 10 mg PO QDAY duloxetine 60 mg capsule,delayed release(DR/EC) 60 mg PO HS guaifenesin 600 mg tablet extended release 12hr 600 mg PO BID insulin aspart U-100 [Novolog FlexPen U-100 Insulin] 100 unit/mL (3 mL) insulin pen See Rx Instructions .ROUTE .COMPLEX Protocol: Insulin Sliding Scale, Med Condition: HUMALOG/NOVALOG SC SLIDING Dose/Route: SCALE Condition: FSBS < 70 Dose/Route: Give 4 Oz juice, or 15gm oral Instruction: Glucose, or 25ml D50W IV if Dose/Route: unable to take PO. Recheck in Instruction: 15 min and repeat if FSBS < 70 Condition: FSBS 71-140 Dose/Route: NO COVERAGE Condition: FSBS 141-170 Dose/Route: 2 UNITS Condition: FSBS 171-200 Dose/Route: 4 UNITS Condition: FSBS 201-250 Dose/Route: 6 UNITS Condition: FSBS 251-300 Dose/Route: 8 UNITS Condition: FSBS 301-350 Dose/Route: 10 UNITS Condition: FSBS 351-400 Dose/Route: 12 UNITS Condition: FSBS > 400 Dose/Route: 14 UNITS; REPEAT Q2H X2 Instruction: CONTINUE FOLLOWING SLIDING Condition: SCALE; IF STILL > 400; CALL Dose/Route: PHYSICIAN Rx Instructions: sliding scale 10 to 18 units Lantus Solostar U-100 Insulin 100 unit/mL (3 mL) insulin pen 84 unit SUB-Q QAM acetazolamide 500 MG capsule, extended release 1,000 mg PO BID propranolol 10 MG tablet 20 mg PO BID fluoxetine 20 mg capsule 40 mg PO BID Body, Hair, Skin and Nails 3-133 mg-mcg capsule 2 cap PO QAM loratadine 10 mg Tablet 10 mg PO QAM tizanidine 4 mg Tablet 8 mg PO BID acetaminophen-codeine 300-60 mg Tablet 1 tab PO BID tramadol 50 mg tablet 50 mg PO Q8H PRN (Reason: pain) Qty: 20 0RF
[2022-12-08] MEDS: morphine 4 MG/ML VIAL IV PRN ×2 (11:06→13:37)
[2022-12-08] MEDS: INSULIN LISPRO 1 UNIT/0.01 ML UNIT SQ SCH ×2 (14:35→20:09)
[2022-12-08] MEDS ORDERED: SCOPOLAMINE 1 PATCH PATCH TOPICAL PRN (15:34)
[2022-12-08] MEDS ORDERED: IOVERSOL 20 ML VIAL IJ ONE (15:56)
[2022-12-08] MEDS ORDERED: LIDOCAINE 2% URO-JET 10 ML JEL.PF.APP UR ONE (15:56)
[2022-12-08] MEDS ORDERED: DEXAMETHASONE 10 MG/ML VIAL ONE (16:40)
[2022-12-08] MEDS ORDERED: GLYCOPYRROLATE 0.2 MG/ML VIAL IV ONE (16:40)
[2022-12-08] MEDS ORDERED: MIDAZOLAM 5 MG/5 ML VIAL ONE (16:40)
[2022-12-08] MEDS ORDERED: ONDANSETRON 4 MG/2 ML VIAL ONE (16:40)
[2022-12-08] MEDS ORDERED: HYDROmorphone 1 MG/ML SYRINGE ONE (16:40)
[2022-12-08] MEDS ORDERED: KETAMINE 50 MG/ML Syringe (ANEST) IV ONE (16:40)
[2022-12-08] MEDS ORDERED: LIDOCAINE HCL/PF 100 MG/5 ML SYRINGE IV ONE (16:40)
[2022-12-08] MEDS ORDERED: MAGNESIUM SULFATE 2 GM/50 ML BAG IV ONE (16:40)
[2022-12-08] MEDS ORDERED: fentaNYL 100 MCG/2 ML VIAL IV ONE (16:40)
[2022-12-08] MEDS ORDERED: PROPOFOL 200 MG/20 ML VIAL IV ONE (16:40)
[2022-12-08] MEDS ORDERED: NALOXONE HCL 0.4 MG/ML VIAL IV PRN (16:55)
[2022-12-08] MEDS ORDERED: HYDROmorphone 0.5 MG/0.5 ML SYRINGE IV PRN (16:55)
[2022-12-08] MEDS ORDERED: LACTATED RINGERS 250 ML IV PRN (16:55)
[2022-12-08] MEDS ORDERED: fentaNYL 100 MCG/2 ML VIAL IV PRN (16:55)
[2022-12-08] MEDS ORDERED: MEPERIDINE 25 MG/ML VIAL IV PRN (16:55)
[2022-12-08] MEDS ORDERED: METHOCARBAMOL 1,000 MG/10 ML VIAL IV PRN (16:55)
[2022-12-08] MEDS ORDERED: LABETALOL 5 MG/ML ML IV PRN (16:55)
[2022-12-08] MEDS ORDERED: FLUMAZENIL 0.1 MG/ML ML IV PRN (16:55)
[2022-12-08] MEDS ORDERED: METOPROLOL TARTRATE 5 MG/5 ML VIAL IV PRN (16:55)
[2022-12-08] MEDS ORDERED: ACETAMINOPHEN 1,000 MG/100 ML BAG IV ONE (16:55)
--- NOTE | 2022-12-08 17:06 | Operative Note ---
Brief Operative Note Date of procedure: 12/08/22 Pre-op diagnosis: Obstructive left ureteral stone and urinary tract infection Post-op diagnosis: same Procedure: Cystoscopy, left retrograde pyelography, left ureteral stent placement Grafts/Implants: Yes (7 [place] by 24 cm stent placed) Anesthesia: GLMA Findings: 5 mm stone at the left ureteropelvic junction. High-grade obstruction was noted. Large volume of purulent urine was noted flowing from the ureteral orifice after passing a guidewire past the stone Complications: none Surgeon: Parveen Harrison Estimated blood loss (cc): 0 Specimens Removed/Pathology: none sent Operative Note Operative Note: After obtaining consent patient took the operating room where general anesthesia was induced patient was placed in dorsolithotomy position position and prepped and draped in a sterile fashion. A well-lubricated cystoscope was placed in the patient's bladder and the left ureteral orifice was identified. A 7 [place] endhole catheter was passed via the scope into the ureteral orifice and a retrograde pyelogram was obtained using dilute contrast. Obstructive stone was noted at the ureteropelvic junction. A angle-tip sensor guidewire was then passed via the endhole catheter and under fluoroscopic guidance and negotiated past the stone into the renal pelvis. Endhole catheter was removed. A large volume of purulent urine was seen draining from the ureteral orifice alongside the guidewire. Decision was made not to perform ureteroscopy due to the infection. A 7 [place] by 24 cm stent was then advanced over the guidewire with a proximal curl in the renal pelvis distal and the patient's bladder guidewire was removed, bladder was drained, and cystoscope was withdrawn. Patient was then awoken and taken to postanesthesia cover a stable condition.
--- NOTE | 2022-12-08 18:24 | XRay Report ---
CLINICAL INFORMATION: Left retrograde ureterogram 4 mm stone in the left UPJ COMPARISON: Abdomen and pelvic CT 12/08/2022 FINDINGS: Left retrograde ureterogram was performed showing filling defect in the mid left ureter. Stent was successfully placed. Total urostomy time 0.6 minutes. IMPRESSION: Successful placement of left ureteral stent. Total fluoroscopy time 0.6 minutes Interpreted and Authenticated by: Al Velazquez 12/08/22
--- NOTE | 2022-12-08 19:23 | Internal Med Progress Note ---
SUBJECTIVE Subjective Patient information: Note initiated : 12/08/22 at 7:15 pm Service Date, if different from initiated Date: [] Patient: Conchita Dyer 42 y/o F admitted on 12/08/22 for fever. Chief Complaint: [] Additional PMFSH (Level 3 Only): Patient is a 42-year-old female with history of bilateral renal stones, recently underwent right ureteroscopy laser lithotripsy and stent placement for multiple nonobstructive small calyceal stones which was removed on 10/27/2022. Patient is also known to have left renal calculi however she decided not to pursue any treatment after discussion with urology since she did not see any symptomatic improvement in her lower back pain after right ureteral stent placement. Patient now presented with 1 day history of feeling achy, generalized malaise, left flank pain, fever of 103. In ER CT scan showed multiple nonobstructive renal calyceal stones but also a 4 mm left proximal ureteral stone with moderate hydronephrosis. Patient was in sepsis secondary to UTI. 12/09. Patient seen and examined. Chart reviewed. She underwent left ureteral stent placement by urology on 12/08. Patient reports she still has some flank tenderness improved from before. No fever or chills. Leukocytosis improved to 13,000 from 15,000 yesterday. Urine and blood cultures pending. Last A1c reviewed was 7.3 on 10/12/2022. Patient home medications resumed Review of system Constitutional Constitutional: No fever, chills, feeling better EENT Eyes: Absent change in vision Nose, mouth and throat: Absent sore throat Cardiovascular Cardiovascular: Absent chest pain, dyspnea or palpatations Respiratory Respiratory: Absent cough, dyspnea or chest congestion Gastrointestinal Gastrointestinal: Absent abdominal pain; Absent nausea Genitourinary Genitourinary: Reports left flank pain, improved from before Musculoskeletal Musculoskeletal: Chronic low back pain Integumentary Integumentary: Absent rash Neurological Neurological: Absent headache, focal weakness PHYSICAL EXAM General: Alert, Awake, No acute Distress, obese Eyes/N/T: EOMI, no scleral icterus, PERRL, Head/Neck: neck supple, full ROM, normocephalic atraumatic CV: RRR, No murmurs, normal s1/s2 Pulm: Clear b/l, no wheezing/rhonchi/rales, no respiratory distress Abd: soft, nontender, +BS x4 : Left flank tenderness, improved from before Ext: no clubbing/cyanosis/edema, nontender Neuro: Alert, no focal deficits, moves all extremities, CN 2-12 grossly intact, sensations intact b/l upper/lower Psychiatric: Appropriate mood and affect Skin: warm/dry, normal color Constitutional Vitals: Vital Signs Temp Pulse Resp BP Pulse Ox O2 Del Method O2 Flow Rate 100 F H 108 H 19 104/66 93 Nasal Cannula 4 12/08/22 17:50 12/08/22 17:50 12/08/22 17:50 12/08/22 17:50 12/08/22 17:50 12/08/22 17:50 12/08/22 17:50 Period Temp Pulse Resp BP Sys/Cain Pulse Ox O2 Del Method O2 Flow Rate Last 24 Hr 98.6 F-102.8 F 74-108 14-24 84-133/45-67 89-100 Nasal Cannula- Room Air 4-6 Intake and Output 12/08/22 12/08/22 12/08/22 03:59 11:59 19:59 Intake Total 1999 1650 Output Total 300 Balance 1999 1350 Weight 99.337 kg Patient Weight 12/09/22 03:59 Weight 99.337 kg Intake & Output: Intake & Output 12/08/22 12/08/22 12/08/22 03:59 11:59 19:59 Intake Total 1999 1650 Output Total 300 Balance 1999 1350 Weight 99.337 kg Intake: IV 2000 100 Sodium Chloride 0.9% 1,000 ml @ 2000 Wide Open IV BOLUS ONE Rx#: [id number] IV - Manual Only 1550 Output: Void Amount 300 OBJ DATA Labs 12/08/22 05:06 Labs: Abnormal Lab Results 12/08/22 12/08/22 12/08/22 08:19 06:03 05:06 WBC 15.4 H Neut % (Auto) 92.5 H Lymph % (Auto) 3.6 L Lymph # (Auto) 0.56 L Absolute Neutrophils 14.24 H POC VBG pH POC VBG pCO2 at Temp POC VBG HCO3 POC VBG Total CO2 POC VBG Base Excess POC Chloride POC Total CO2 POC Glucose ALT 47 H Procalcitonin Urine Appearance Hazy A Ur Leukocyte Esterase 25 A Urine WBC 18 H Urine Bacteria Mod A Urine Mucus Few A 12/08/22 12/08/22 12/08/22 05:05 04:24 04:20 WBC Neut % (Auto) Lymph % (Auto) Lymph # (Auto) Absolute Neutrophils POC VBG pH 7.25 L POC VBG pCO2 at Temp 32.5 L POC VBG HCO3 14.2 L POC VBG Total CO2 15.0 L POC VBG Base Excess -13.0 L POC Chloride 112 H POC Total CO2 16.0 L POC Glucose 111 H ALT Procalcitonin 0.83 H Urine Appearance Ur Leukocyte Esterase Urine WBC Urine Bacteria Urine Mucus Meds: Medications Acetaminophen (Acetaminophen 325 Mg Tablet) 650 mg PO Q6HP PRN; Protocol PRN Reason: Per Pain Protocol/Fever > 101 Hydrocodone Bitart/Acetaminophen (Hydrocodone/Apap 5/325mg Tablet) 1 tab PO Q4HP PRN PRN Reason: PAIN LEVEL 3-6 Albuterol/Ipratropium (Ipratropium/Albuterol 3 Ml Ampul.Neb) 3 ml NEB Q4HP PRN PRN Reason: Shortness Of Breath Ceftriaxone Sodium (Ceftriaxone 1 Gm Vial) 1 gm IV Q24H MARI Dextrose (Dextrose 50% 50 Ml Vial) 0 ml IV UD PRN PRN Reason: Per Sliding Scale Diagnostic Test (Pha) (Accu-Chek 1 Each Strip) 1 each FS ACHS [facility] Last Admin: 12/08/22 17:04 Dose: 1 each Docusate Sodium (Docusate Sodium 100 Mg Capsule) 100 mg PO BID MARI Glucose (Dextrose 31 Gm Oral.Susp) 15 gm PO PRN PRN PRN Reason: Hypoglycemia Potassium Chloride 40 meq/ (Dextrose) 520 mls @ 130 mls/hr IV UD PRN PRN Reason: Potassium < 3 Magnesium Sulfate (Magnesium Sulfate) 2 gm in 50 mls @ 50 mls/hr IV UD PRN PRN Reason: Magnesium </= 1.6 Insulin Human Lispro (Insulin Lispro 1 Unit/0.01 Ml Unit) 0 unit SQ ACHS [facility]; Protocol Last Admin: 12/08/22 14:35 Dose: Not Given Ketorolac Tromethamine (Ketorolac 30 Mg/Ml Vial) 15 mg IV Q6HP PRN PRN Reason: Pain Stop: 12/10/22 07:05 Morphine Sulfate (Morphine 4 Mg/Ml Vial) 0 mg IV Q3HP PRN PRN Reason: Pain Last Admin: 12/08/22 13:37 Dose: 3 mg Ondansetron HCl (Ondansetron 4 Mg/2 Ml Vial) 4 mg IV Q4HP PRN PRN Reason: Nausea And Vomiting Polyethylene Glycol (Polyethylene Glycol 3350 17 Gm Packet) 17 gm PO DAILYP PRN PRN Reason: Constipation Potassium Chloride (Potassium Chloride 20 Meq Tablet) 40 meq PO UD PRN PRN Reason: Potssium is 3-3.5 Potassium Chloride (Potassium Chloride 20 Meq Tablet) 40 meq PO UD PRN PRN Reason: Potassium < 3 Senna (Sennosides 1 Tablet) 2 tab PO DAILYP PRN PRN Reason: Constipation Sodium Chloride (0.9 % Sodium Chloride 10 Ml Syringe) 10 ml IV Q8 MARI A/P Assessment and plan (1) Urinary tract infection: Status: Chronic (2) Migraine: Status: Chronic Qualifiers: Migraine type: unspecified (3) Chronic pain: Status: Chronic (4) Low back pain: Status: Chronic (5) Type 2 diabetes mellitus without complications: Status: Chronic (6) Anxiety disorder: Status: Chronic (7) Hyperglycemia due to type 2 diabetes mellitus: Status: Chronic Qualifiers: Diabetes mellitus nursing home insulin use: with termite control representative use Qualified Code(s): E11.65 - Type 2 diabetes mellitus with hyperglycemia; Z79.4 - termite control representative (current) use of insulin (8) Pseudotumor cerebri: Status: Chronic (9) Nicotine dependence: Status: Chronic (10) Ureteric stone: Status: Chronic (11) Sepsis: Status: Chronic (12) Left ureteral calculus: Status: Acute Narrative A/P Narrative: Assessment and plan *UTI: Secondary to obstructing urinary stone. Continue ceftriaxone. Follow urine and blood culture *Sepsis: Presented with tachycardia, fever 102F, leukocytosis and UTI *Left hydronephrosis with obstructing UPJ stone: Status post left ureteral stent placement by Dr. Harrison on 12/08. Renal function stable *Metabolic acidosis, NG: Improving *DM2: Last A1c 7.3 in September 2022. Resumed home dose insulin regimen. Monitor blood glucose *Hyperlipidemia: On rosuvastatin *Depression/anxiety: On duloxetine *Obesity: BMI 36. Counseled on weight reduction and healthy lifestyle changes *Pseudotumor cerebri: On acetazolamide *Migraines: On rizatriptan as needed *Tobacco abuse: Counseled on smoking cessation >10 min *DVT prophylaxis SCDs Portions of this chart may have been created with [employer] voice recognition sof [employer]. Occasional wrong-word or sound-like substitutions may have occurred due to the inherent limitations of voice recognition software. Please read the chart carefully and recognize, using context, where the substitutions have occurred. Time Spent With Patient Time: Total time spent is greater than 50% in coordination of care (as documented) at patient's floor/unit and/or counseling patient: Initial: Total time with patient: 55 - 74 minutes Subsequent: Total time with patient: 50 - 65 Minutes QUALITY VTE Deep Vein Thrombosis/Pulmonary Embolism Present on Admission: No
[2022-12-08] MEDS ORDERED: LACTATED RINGERS 500 ML IV PRN (19:30)
[2022-12-08] MEDS: DOCUSATE SODIUM 100 MG CAPSULE PO SCH ×2 (20:10→20:52)
[2022-12-08] MEDS: 0.9 % SODIUM CHLORIDE 10 ML SYRINGE IV SCH ×2 (20:10→20:52)
[2022-12-08] MEDS: ACETAMINOPHEN 325 MG TABLET PO PRN (22:59)
[2022-12-09] MEDS: 0.9 % SODIUM CHLORIDE 10 ML SYRINGE IV SCH ×3 (04:07→20:59)
[2022-12-09 07:49] LABS: Basophils # (Auto) 0.01 K/mcL (0.00-0.30); Basophils % (Auto) 0.1 % (0.0-2.0); Eosinophils # (Auto) 0 K/mcL (0.00-0.70); Eosinophils % (Auto) 0 % (0.0-7.0); Hematocrit 37.4 % (34.1-44.9); Hemoglobin 11.9 g/dL (11.2-15.7); Lymphocytes # (Auto) 0.59 K/mcL (1.50-4.80); Lymphocytes % (Auto) 4.3 % (15.5-49.0); Mean Cell Volume 96.6 fL (80.0-100.0); Mean Corpuscular HGB Conc 31.8 g/dL (31.0-36.0); Mean Platelet Volume 11.5 fL (8.8-12.5); Monocytes # (Auto) 0.44 K/mcL (0.10-0.90); Monocytes % (Auto) 3.2 % (1.0-12.0); Platelet Count 264 K/mcL (140-440); RBC 3.87 M/mcL (3.59-5.38); Red Cell Distribution Width 12.9 % (11.5-14.5); WBC 13.8 K/mcL (4.5-11.0)
[2022-12-09 07:52] LABS: ALT/SGPT 39 U/L (<40); AST/SGOT 20 U/L (<32); Albumin 3.5 gm/dL (3.2-5.2); Albumin/Globulin Ratio 1.2 (1.0-2.3); Alkaline Phosphatase 85 U/L (39-117); Bilirubin,Direct < 0.2 mg/dL (0-0.3); Bilirubin,Total < 0.2 mg/dL (0.1-1.0); Blood Urea Nitrogen 13 mg/dL (6-20); Calcium 8.5 mg/dL (8.6-10.4); Carbon Dioxide 15 mmol/L (22-30); Chloride 107 mmol/L (96-108); Glomerular Filtration Rate 78; Glucose 221 mg/dL (70-105); Lactate Dehydrogenase 178 U/L (135-225); Phosphorous 2.8 mg/dL (2.5-4.5); Triglycerides 79 mg/dL (<150); Uric Acid 3.1 mg/dL (2.5-8.0)
[2022-12-09] MEDS: INSULIN LISPRO 1 UNIT/0.01 ML UNIT SQ SCH ×4 (07:54→20:57)
[2022-12-09] MEDS ORDERED: traMADol 50 MG TABLET PO PRN (08:27)
[2022-12-09] MEDS ORDERED: NON FORMULARY MEDICATION 1 DOSE MISCELL (Insulin Aspart U-100 [Novolog Flexpen U-100 Insul SCH (08:30)
[2022-12-09] MEDS ORDERED: Rizatriptan 10 mg tablet PO PRN (08:34)
--- NOTE | 2022-12-09 08:46 | Internal Med Progress Note ---
SUBJECTIVE Subjective Patient information: Note initiated : 12/09/22 at 8:45 am Service Date, if different from initiated Date: [] Patient: Conchita Dyer 42 y/o F admitted on 12/08/22 for fever. Chief Complaint: [] Additional PMFSH (Level 3 Only): mis is a 42-year-old female with history of bilateral renal stones, recently underwent right ureteroscopy laser lithotripsy and stent placement for multiple nonobstructive small calyceal stones which was removed on 10/27/2022. Patient is also known to have left renal calculi however she decided not to pursue any treatment after discussion with urology since she did not see any symptomatic improvement in her lower back pain after right ureteral stent placement. Patient now presented with 1 day history of feeling achy, generalized malaise, left flank pain, fever of 103. In ER CT scan showed multiple nonobstructive renal calyceal stones but also a 4 mm left proximal ureteral stone with moderate hydronephrosis. Patient was in sepsis secondary to UTI. 12/09. Patient seen and examined. Chart reviewed. She underwent left ureteral stent placement by urology on 12/08. Patient reports she still has some flank tenderness improved from before. No fever or chills. Leukocytosis improved to 13,000 from 15,000 yesterday. Urine and blood cultures pending. Last A1c reviewed was 7.3 on 10/12/2022. Patient home medications resumed Review of system Constitutional Constitutional: No fever, chills, feeling better EENT Eyes: Absent change in vision Nose, mouth and throat: Absent sore throat Cardiovascular Cardiovascular: Absent chest pain, dyspnea or palpatations Respiratory Respiratory: Absent cough, dyspnea or chest congestion Gastrointestinal Gastrointestinal: Absent abdominal pain; Absent nausea Genitourinary Genitourinary: Reports left flank pain, improved from before Musculoskeletal Musculoskeletal: Chronic low back pain Integumentary Integumentary: Absent rash Neurological Neurological: Absent headache, focal weakness PHYSICAL EXAM General: Alert, Awake, No acute Distress, obese Eyes/N/T: EOMI, no scleral icterus, PERRL, Head/Neck: neck supple, full ROM, normocephalic atraumatic CV: RRR, No murmurs, normal s1/s2 Pulm: Clear b/l, no wheezing/rhonchi/rales, no respiratory distress Abd: soft, nontender, +BS x4 : Left flank tenderness, improved from before Ext: no clubbing/cyanosis/edema, nontender Neuro: Alert, no focal deficits, moves all extremities, CN 2-12 grossly intact, sensations intact b/l upper/lower Psychiatric: Appropriate mood and affect Skin: warm/dry, normal color Constitutional Vitals: Vital Signs Temp Pulse Resp BP Pulse Ox O2 Del Method O2 Flow Rate 98.6 F 80 18 119/69 97 Room Air 4 12/09/22 04:05 12/09/22 04:05 12/09/22 04:05 12/09/22 04:05 12/09/22 04:05 12/09/22 04:05 12/08/22 20:30 Period Temp Pulse Resp BP Sys/Cain Pulse Ox O2 Del Method O2 Flow Rate Last 24 Hr 98.4 F-102.3 F 74-110 14-20 84-124/45-73 89-100 Nasal Cannula- Room Air 4-6 Intake and Output 12/08/22 12/09/22 12/09/22 19:59 03:59 11:59 Intake Total 2342 1300 800 Output Total 300 1400 Balance 2042 -100 800 Weight 102.421 kg Intake & Output: Intake & Output 12/08/22 12/09/22 12/09/22 19:59 03:59 11:59 Intake Total 2342 1300 800 Output Total 300 1400 Balance 2042 -100 800 Weight 102.421 kg Intake: IV 792 500 Lactated Ringers 500 ml @ 500 692 500 mls/hr IV PRN PRN Rx#:[id number] Oral 800 800 IV - Manual Only 1550 Output: Void Amount 300 1400 Other: Urine Appearance Clear Urine Color Pale Urine Odor Normal OBJ DATA Labs 12/09/22 05:53 12/09/22 05:53 Labs: Abnormal Lab Results 12/09/22 12/09/22 12/08/22 05:53 05:53 08:19 WBC 13.8 H Neut % (Auto) 92.0 H Lymph % (Auto) 4.3 L Lymph # (Auto) 0.59 L Absolute Neutrophils 12.66 H POC VBG pH POC VBG pCO2 at Temp POC VBG HCO3 POC VBG Total CO2 POC VBG Base Excess POC Chloride Carbon Dioxide 15 L POC Total CO2 Glucose 221 H POC Glucose Calcium 8.5 L GGT 37 H ALT 47 H Procalcitonin Urine Appearance Ur Leukocyte Esterase Urine WBC Urine Bacteria Urine Mucus 12/08/22 12/08/22 12/08/22 06:03 05:06 05:05 WBC 15.4 H Neut % (Auto) 92.5 H Lymph % (Auto) 3.6 L Lymph # (Auto) 0.56 L Absolute Neutrophils 14.24 H POC VBG pH POC VBG pCO2 at Temp POC VBG HCO3 POC VBG Total CO2 POC VBG Base Excess POC Chloride Carbon Dioxide POC Total CO2 Glucose POC Glucose Calcium GGT ALT Procalcitonin 0.83 H Urine Appearance Hazy A Ur Leukocyte Esterase 25 A Urine WBC 18 H Urine Bacteria Mod A Urine Mucus Few A 12/08/22 12/08/22 04:24 04:20 WBC Neut % (Auto) Lymph % (Auto) Lymph # (Auto) Absolute Neutrophils POC VBG pH 7.25 L POC VBG pCO2 at Temp 32.5 L POC VBG HCO3 14.2 L POC VBG Total CO2 15.0 L POC VBG Base Excess -13.0 L POC Chloride 112 H Carbon Dioxide POC Total CO2 16.0 L Glucose POC Glucose 111 H Calcium GGT ALT Procalcitonin Urine Appearance Ur Leukocyte Esterase Urine WBC Urine Bacteria Urine Mucus Meds: Medications Acetaminophen (Acetaminophen 325 Mg Tablet) 650 mg PO Q6HP PRN; Protocol PRN Reason: Per Pain Protocol/Fever > 101 Last Admin: 12/08/22 22:59 Dose: 650 mg Hydrocodone Bitart/Acetaminophen (Hydrocodone/Apap 5/325mg Tablet) 1 tab PO Q4HP PRN PRN Reason: PAIN LEVEL 3-6 Acetazolamide (Acetazolamide 250 Mg Tablet) 1,000 mg PO BID MARI Albuterol/Ipratropium (Ipratropium/Albuterol 3 Ml Ampul.Neb) 3 ml NEB Q4HP PRN PRN Reason: Shortness Of Breath Ceftriaxone Sodium (Ceftriaxone 1 Gm Vial) 1 gm IV Q24H MARI Dextrose (Dextrose 50% 50 Ml Vial) 0 ml IV UD PRN PRN Reason: Per Sliding Scale Diagnostic Test (Pha) (Accu-Chek 1 Each Strip) 1 each FS ACHS [facility] Last Admin: 12/09/22 07:54 Dose: 1 each Docusate Sodium (Docusate Sodium 100 Mg Capsule) 100 mg PO BID MARI Last Admin: 12/08/22 20:52 Dose: 100 mg Duloxetine HCl (Duloxetine 30 Mg Capsule) 60 mg PO HS MARI Fluoxetine HCl (Fluoxetine Hcl 20 Mg Capsule) 40 mg PO BID MARI Glucose (Dextrose 31 Gm Oral.Susp) 15 gm PO PRN PRN PRN Reason: Hypoglycemia Guaifenesin (Guaifenesin 600 Mg Tab.Sr.12h) 600 mg PO BID MARI Potassium Chloride 40 meq/ (Dextrose) 520 mls @ 130 mls/hr IV UD PRN PRN Reason: Potassium < 3 Magnesium Sulfate (Magnesium Sulfate) 2 gm in 50 mls @ 50 mls/hr IV UD PRN PRN Reason: Magnesium </= 1.6 Lactated Ringer's (Lactated Ringers) 500 mls @ 500 mls/hr IV PRN PRN PRN Reason: For SBP <100 Last Infusion: 12/08/22 20:52 Dose: Infused Insulin Human Lispro (Insulin Lispro 1 Unit/0.01 Ml Unit) 0 unit SQ ACHS [facility]; Protocol Last Admin: 12/09/22 07:54 Dose: 6 unit Ketorolac Tromethamine (Ketorolac 30 Mg/Ml Vial) 15 mg IV Q6HP PRN PRN Reason: Pain Stop: 12/10/22 07:05 Loratadine (Loratadine 10 Mg Tablet) 10 mg PO QAM [facility] Morphine Sulfate (Morphine 4 Mg/Ml Vial) 0 mg IV Q3HP PRN PRN Reason: Pain Last Admin: 12/08/22 13:37 Dose: 3 mg Non-Formulary Medication (Insulin Glargine [Lantus Solostar U-100 Insulin]) 84 unit SUB-Q QAM [facility] Ondansetron HCl (Ondansetron 4 Mg/2 Ml Vial) 4 mg IV Q4HP PRN PRN Reason: Nausea And Vomiting Diclofenac Sodium 1 (% Gel) 0 dose TOPICAL QID [facility] Rizatriptan 10 Mg (Tablet) 1 dose PO DAILYP PRN PRN Reason: migraines Polyethylene Glycol (Polyethylene Glycol 3350 17 Gm Packet) 17 gm PO DAILYP PRN PRN Reason: Constipation Potassium Chloride (Potassium Chloride 20 Meq Tablet) 40 meq PO UD PRN PRN Reason: Potssium is 3-3.5 Potassium Chloride (Potassium Chloride 20 Meq Tablet) 40 meq PO UD PRN PRN Reason: Potassium < 3 Propranolol HCl (Propranolol 10 Mg Tablet) 20 mg PO BID MARI Senna (Sennosides 1 Tablet) 2 tab PO DAILYP PRN PRN Reason: Constipation Simvastatin (Simvastatin 40 Mg Tablet) 40 mg PO HS [facility]I Sodium Chloride (0.9 % Sodium Chloride 10 Ml Syringe) 10 ml IV Q8 [facility] Last Admin: 12/09/22 04:07 Dose: 10 ml Tizanidine HCl (Tizanidine 4 Mg Tablet) 8 mg PO BID [facility]I Tramadol HCl (Tramadol 50 Mg Tablet) 50 mg PO Q8HP PRN PRN Reason: pain A/P Narrative A/P Narrative: Assessment and plan *UTI: Secondary to obstructing urinary stone. Continue ceftriaxone. Follow urine and blood culture *Sepsis: Presented with tachycardia, fever 102F, leukocytosis and UTI *Left hydronephrosis with obstructing UPJ stone: Status post left ureteral stent placement by Dr. Harrison on 12/08. Renal function stable *Metabolic acidosis, NG: Improving *DM2: Last A1c 7.3 in September 2022. Resumed home dose insulin regimen. Monitor blood glucose *Hyperlipidemia: On rosuvastatin *Depression/anxiety: On duloxetine *Obesity: BMI 36. Counseled on weight reduction and healthy lifestyle changes *Pseudotumor cerebri: On acetazolamide *Migraines: On rizatriptan as needed *Tobacco abuse: Counseled on smoking cessation >10 min *DVT prophylaxis SCDs Portions of this chart may have been created with [employer] voice recognition software. Occasional wrong-word or sound-like substitutions may have occurred due to the inherent limitations of voice recognition software. Please read the chart carefully and recognize, using context, where the substitutions have occurred. Time Spent With Patient Time: Total time spent is greater than 50% in coordination of care (as documented) at patient's floor/unit and/or counseling patient: Initial: Total time with patient: 55 - 74 minutes Subsequent: Total time with patient: 50 - 65 Minutes Time Spent With Patient Time: Total time spent is greater than 50% in coordination of care (as documented) at patient's floor/unit and/or counseling patient: QUALITY VTE Deep Vein Thrombosis/Pulmonary Embolism Present on Admission: No
[2022-12-09] MEDS: tiZANidine 4 MG TABLET PO SCH ×2 (08:51→20:58)
[2022-12-09] MEDS: LORATADINE 10 MG TABLET PO SCH (08:52)
[2022-12-09] MEDS: PROPRANOLOL 10 MG TABLET PO SCH ×2 (08:52→20:59)
[2022-12-09] MEDS: DOCUSATE SODIUM 100 MG CAPSULE PO SCH ×2 (08:52→20:59)
[2022-12-09] MEDS: guaiFENesin 600 MG TAB.SR.12H PO SCH ×2 (08:52→20:59)
[2022-12-09] MEDS: FLUoxetine HCL 20 MG CAPSULE PO SCH ×2 (08:52→20:59)
[2022-12-09] MEDS: acetaZOLAMIDE 250 MG TABLET PO SCH ×2 (10:30→20:58)
[2022-12-09] MEDS: cefTRIAXone 1 GM VIAL IV SCH (10:49)
[2022-12-09] MEDS: INSULIN GLARGINE, HUMAN 1 UNIT/0.01 ML SQ SCH (11:03)
[2022-12-09] MEDS: Diclofenac Sodium 1 % gel TOPICAL SCH ×4 (11:07→21:01)
[2022-12-09] MEDS: ACETAMINOPHEN 325 MG TABLET PO PRN ×2 (13:42→20:57)
[2022-12-09] MEDS: SIMVASTATIN 40 MG TABLET PO SCH (20:59)
[2022-12-09] MEDS: DULoxetine 30 MG CAPSULE PO SCH (20:59)
[2022-12-10] MEDS: 0.9 % SODIUM CHLORIDE 10 ML SYRINGE IV SCH ×3 (04:14→20:36)
[2022-12-10] MEDS: INSULIN LISPRO 1 UNIT/0.01 ML UNIT SQ SCH ×3 (07:16→17:53)
[2022-12-10] MEDS: ACETAMINOPHEN 325 MG TABLET PO PRN ×2 (07:24→20:36)
[2022-12-10 08:03] LABS: Basophils # (Auto) 0.06 K/mcL (0.00-0.30); Basophils % (Auto) 0.6 % (0.0-2.0); Eosinophils # (Auto) 0.02 K/mcL (0.00-0.70); Eosinophils % (Auto) 0.2 % (0.0-7.0); Hematocrit 37.2 % (34.1-44.9); Hemoglobin 11.7 g/dL (11.2-15.7); Lymphocytes # (Auto) 1.71 K/mcL (1.50-4.80); Lymphocytes % (Auto) 17.9 % (15.5-49.0); Mean Cell Volume 97.4 fL (80.0-100.0); Mean Corpuscular HGB Conc 31.5 g/dL (31.0-36.0); Mean Platelet Volume 10.9 fL (8.8-12.5); Monocytes # (Auto) 0.81 K/mcL (0.10-0.90); Monocytes % (Auto) 8.5 % (1.0-12.0); Neutrophils % (Auto) 72.5 % (38.0-78.0); Platelet Count 240 K/mcL (140-440); RBC 3.82 M/mcL (3.59-5.38); WBC 9.6 K/mcL (4.5-11.0)
[2022-12-10 08:34] LABS: Blood Urea Nitrogen 17 mg/dL (6-20); Calcium 8.3 mg/dL (8.6-10.4); Carbon Dioxide 15 mmol/L (22-30); Chloride 111 mmol/L (96-108); Glomerular Filtration Rate 78; Glucose 110 mg/dL (70-105)
[2022-12-10] MEDS: tiZANidine 4 MG TABLET PO SCH ×2 (09:05→20:35)
[2022-12-10] MEDS: DOCUSATE SODIUM 100 MG CAPSULE PO SCH ×2 (09:05→20:35)
[2022-12-10] MEDS: guaiFENesin 600 MG TAB.SR.12H PO SCH ×2 (09:05→20:35)
[2022-12-10] MEDS: PROPRANOLOL 10 MG TABLET PO SCH ×2 (09:05→20:35)
[2022-12-10] MEDS: FLUoxetine HCL 20 MG CAPSULE PO SCH ×2 (09:05→20:35)
[2022-12-10] MEDS: LORATADINE 10 MG TABLET PO SCH (09:06)
[2022-12-10] MEDS: INSULIN GLARGINE, HUMAN 1 UNIT/0.01 ML SQ SCH (09:06)
[2022-12-10] MEDS: Diclofenac Sodium 1 % gel TOPICAL SCH ×3 (09:08→17:55)
[2022-12-10] MEDS: acetaZOLAMIDE 250 MG TABLET PO SCH ×2 (09:19→20:35)
[2022-12-10] MEDS: cefTRIAXone 1 GM VIAL IV SCH (09:25)
[2022-12-10] MEDS ORDERED: ACETAMINOPHEN W/CODEINE #3 1 TABLET PO PRN (11:15)
--- NOTE | 2022-12-10 15:04 | Internal Med Progress Note ---
SUBJECTIVE Subjective Patient information: Note initiated : 12/10/22 at 7:00 am Service Date, if different from initiated Date: [] Patient: Conchita Dyer 42 y/o F admitted on 12/08/22 for fever. Chief Complaint: [] Additional PMFSH (Level 3 Only): Patient is a 42-year-old female with history of bilateral renal stones, recently underwent right ureteroscopy laser lithotripsy and stent placement for multiple nonobstructive small calyceal stones which was removed on 10/27/2022. Patient is also known to have left renal calculi however she decided not to pursue any treatment after discussion with urology since she did not see any symptomatic improvement in her lower back pain after right ureteral stent placement. Patient now presented with 1 day history of feeling achy, generalized malaise, left flank pain, fever of 103. In ER CT scan showed multiple nonobstructive renal calyceal stones but also a 4 mm left proximal ureteral stone with moderate hydronephrosis. Patient was in sepsis secondary to UTI. 12/09. Patient seen and examined. Chart reviewed. She underwent left ureteral stent placement by urology on 12/08. Patient reports she still has some flank tenderness improved from before. No fever or chills. Leukocytosis improved to 13,000 from 15,000 yesterday. Urine and blood cultures pending. Last A1c reviewed was 7.3 on 10/12/2022. Patient home medications resumed 12/10 no fevers. Left flank pain is improving lab work from this morning is pending. Urine culture is growing negative bacilli final culture not available yet. Review of system Constitutional Constitutional: No fever, chills, feeling better EENT Eyes: Absent change in vision Nose, mouth and throat: Absent sore throat Cardiovascular Cardiovascular: Absent chest pain, dyspnea or palpatations Respiratory Respiratory: Absent cough, dyspnea or chest congestion Gastrointestinal Gastrointestinal: Absent abdominal pain; Absent nausea Genitourinary Genitourinary: Flank pain has nearly resolved Musculoskeletal Musculoskeletal: Chronic low back pain Integumentary Integumentary: Absent rash Neurological Neurological: Absent headache, focal weakness PHYSICAL EXAM General: Alert and awake, just woke up, in no acute distress Eyes/N/T: EOMI, no scleral icterus, PERRL, Head/Neck: neck supple, full ROM, normocephalic atraumatic CV: RRR, No murmurs, normal s1/s2 Pulm: Clear b/l, no wheezing/rhonchi/rales, no respiratory distress Abd: soft, nontender, +BS x4 : Left flank tenderness, improved from before Ext: no clubbing/cyanosis/edema, nontender Neuro: Alert, no focal deficits, moves all extremities, CN 2-12 grossly intact, sensations intact b/l upper/lower Psychiatric: Appropriate mood and affect Skin: warm/dry, normal color Assessment and plan *UTI: Secondary to obstructing urinary stone. Continue ceftriaxone. Urine culture growing gram negative bacilli, follow *Sepsis: Presented with tachycardia, fever 102F, leukocytosis and UTI *Left hydronephrosis with obstructing UPJ stone: Status post left ureteral stent placement by Dr. Harrison on 12/08. Renal function stable *Metabolic acidosis, NG: Improving *DM2: Last A1c 7.3 in September 2022. Resumed home dose insulin regimen. Monitor blood glucose *Hyperlipidemia: On rosuvastatin *Depression/anxiety: On duloxetine *Obesity: BMI 36. Counseled on weight reduction and healthy lifestyle changes *Pseudotumor cerebri: On acetazolamide *Migraines: On rizatriptan as needed *Tobacco abuse: Counseled on smoking cessation >10 min *DVT prophylaxis SCDs Portions of this chart may have been created with [employer] voice recognition software. Occasional wrong-word or sound-like substitutions may have occurred due to the inherent limitations of voice recognition software. Please read the chart carefully and recognize, using context, where the substitutions have occurred. Time Spent With Patient Constitutional Vitals: Vital Signs Temp Pulse Resp BP Pulse Ox O2 Del Method O2 Flow Rate 97.7 F 71 18 104/70 98 Room Air 4 12/10/22 00:06 12/10/22 04:14 12/10/22 04:14 12/10/22 04:14 12/10/22 04:14 12/10/22 04:14 12/08/22 20:30 Period Temp Pulse Resp BP Sys/Cain Pulse Ox O2 Del Method O2 Flow Rate Last 24 Hr 97.7 F-98.6 F 64-80 14-18 89-112/53-70 96-98 Room Air-Room Air Intake and Output 12/09/22 12/10/22 12/10/22 19:59 03:59 11:59 Intake Total 1160 800 Output Total 1700 650 Balance 1160 -1700 150 Weight 100.108 kg Intake & Output: Intake & Output 12/09/22 12/10/22 12/10/22 19:59 03:59 11:59 Intake Total 1160 800 Output Total 1700 650 Balance 1160 -1700 150 Weight 100.108 kg Intake: Oral 1160 800 Output: Void Amount 1700 650 Other: Meal Dinner Percent of Meal Consumed 75% Feeding Ability Independent Urine Appearance Clear Clear Urine Color Yellow Light Lisa Urine Odor Normal Normal OBJ DATA Labs 12/09/22 05:53 12/09/22 05:53 Labs: Abnormal Lab Results 12/09/22 12/09/22 12/08/22 05:53 05:53 08:19 WBC 13.8 H Neut % (Auto) 92.0 H Lymph % (Auto) 4.3 L Lymph # (Auto) 0.59 L Absolute Neutrophils 12.66 H POC VBG pH POC VBG pCO2 at Temp POC VBG HCO3 POC VBG Total CO2 POC VBG Base Excess POC Chloride Carbon Dioxide 15 L POC Total CO2 Glucose 221 H POC Glucose Calcium 8.5 L GGT 37 H ALT 47 H Procalcitonin Urine Appearance Ur Leukocyte Esterase Urine WBC Urine Bacteria Urine Mucus 12/08/22 12/08/22 12/08/22 06:03 05:06 05:05 WBC 15.4 H Neut % (Auto) 92.5 H Lymph % (Auto) 3.6 L Lymph # (Auto) 0.56 L Absolute Neutrophils 14.24 H POC VBG pH POC VBG pCO2 at Temp POC VBG HCO3 POC VBG Total CO2 POC VBG Base Excess POC Chloride Carbon Dioxide POC Total CO2 Glucose POC Glucose Calcium GGT ALT Procalcitonin 0.83 H Urine Appearance Hazy A Ur Leukocyte Esterase 25 A Urine WBC 18 H Urine Bacteria Mod A Urine Mucus Few A 12/08/22 12/08/22 04:24 04:20 WBC Neut % (Auto) Lymph % (Auto) Lymph # (Auto) Absolute Neutrophils POC VBG pH 7.25 L POC VBG pCO2 at Temp 32.5 L POC VBG HCO3 14.2 L POC VBG Total CO2 15.0 L POC VBG Base Excess -13.0 L POC Chloride 112 H Carbon Dioxide POC Total CO2 16.0 L Glucose POC Glucose 111 H Calcium GGT ALT Procalcitonin Urine Appearance Ur Leukocyte Esterase Urine WBC Urine Bacteria Urine Mucus Meds: Medications Acetaminophen (Acetaminophen 325 Mg Tablet) 650 mg PO Q6HP PRN; Protocol PRN Reason: Per Pain Protocol/Fever > 101 Last Admin: 12/09/22 20:57 Dose: 650 mg Hydrocodone Bitart/Acetaminophen (Hydrocodone/Apap 5/325mg Tablet) 1 tab PO Q4HP PRN PRN Reason: PAIN LEVEL 3-6 Acetazolamide (Acetazolamide 250 Mg Tablet) 1,000 mg PO BID [facility] Last Admin: 12/09/22 20:58 Dose: 1,000 mg Albuterol/Ipratropium (Ipratropium/Albuterol 3 Ml Ampul.Neb) 3 ml NEB Q4HP PRN PRN Reason: Shortness Of Breath Ceftriaxone Sodium (Ceftriaxone 1 Gm Vial) 1 gm IV Q24H [facility] Last Admin: 12/09/22 10:49 Dose: 1 gm Dextrose (Dextrose 50% 50 Ml Vial) 0 ml IV UD PRN PRN Reason: Per Sliding Scale Diagnostic Test (Pha) (Accu-Chek 1 Each Strip) 1 each FS ACHS [facility] Last Admin: 12/09/22 20:38 Dose: 1 each Docusate Sodium (Docusate Sodium 100 Mg Capsule) 100 mg PO BID [facility] Last Admin: 12/09/22 20:59 Dose: 100 mg Duloxetine HCl (Duloxetine 30 Mg Capsule) 60 mg PO HS [facility] Last Admin: 12/09/22 20:59 Dose: 60 mg Fluoxetine HCl (Fluoxetine Hcl 20 Mg Capsule) 40 mg PO BID [facility] Last Admin: 12/09/22 20:59 Dose: 40 mg Glucose (Dextrose 31 Gm Oral.Susp) 15 gm PO PRN PRN PRN Reason: Hypoglycemia Guaifenesin (Guaifenesin 600 Mg Tab.Sr.12h) 600 mg PO BID [facility] Last Admin: 12/09/22 20:59 Dose: 600 mg Potassium Chloride 40 meq/ (Dextrose) 520 mls @ 130 mls/hr IV UD PRN PRN Reason: Potassium < 3 Magnesium Sulfate (Magnesium Sulfate) 2 gm in 50 mls @ 50 mls/hr IV UD PRN PRN Reason: Magnesium </= 1.6 Lactated Ringer's (Lactated Ringers) 500 mls @ 500 mls/hr IV PRN PRN PRN Reason: For SBP <100 Last Infusion: 12/08/22 20:52 Dose: Infused Insulin Glargine (Insulin Glargine, Human 1 Unit/0.01 Ml) 84 unit SQ QAM [facility] Last Admin: 12/09/22 11:03 Dose: 84 unit Insulin Human Lispro (Insulin Lispro 1 Unit/0.01 Ml Unit) 0 unit SQ [facility]; Protocol Last Admin: 12/09/22 20:57 Dose: 2 unit Ketorolac Tromethamine (Ketorolac 30 Mg/Ml Vial) 15 mg IV Q6HP PRN PRN Reason: Pain Stop: 12/10/22 07:05 Loratadine (Loratadine 10 Mg Tablet) 10 mg PO QAM [facility] Last Admin: 12/09/22 08:52 Dose: 10 mg Morphine Sulfate (Morphine 4 Mg/Ml Vial) 0 mg IV Q3HP PRN PRN Reason: Pain Last Admin: 12/08/22 13:37 Dose: 3 mg Ondansetron HCl (Ondansetron 4 Mg/2 Ml Vial) 4 mg IV Q4HP PRN PRN Reason: Nausea And Vomiting Diclofenac Sodium 1 (% Gel) 0 dose TOPICAL QID [facility] Last Admin: 12/09/22 21:01 Dose: Not Given Rizatriptan 10 Mg (Tablet) 1 dose PO DAILYP PRN PRN Reason: migraines Polyethylene Glycol (Polyethylene Glycol 3350 17 Gm Packet) 17 gm PO DAILYP PRN PRN Reason: Constipation Potassium Chloride (Potassium Chloride 20 Meq Tablet) 40 meq PO UD PRN PRN Reason: Potssium is 3-3.5 Potassium Chloride (Potassium Chloride 20 Meq Tablet) 40 meq PO UD PRN PRN Reason: Potassium < 3 Propranolol HCl (Propranolol 10 Mg Tablet) 20 mg PO BID [facility] Last Admin: 12/09/22 20:59 Dose: 20 mg Senna (Sennosides 1 Tablet) 2 tab PO DAILYP PRN PRN Reason: Constipation Simvastatin (Simvastatin 40 Mg Tablet) 40 mg PO HS [facility] Last Admin: 12/09/22 20:59 Dose: 40 mg Sodium Chloride (0.9 % Sodium Chloride 10 Ml Syringe) 10 ml IV Q8 [facility] Last Admin: 12/10/22 04:14 Dose: 10 ml Tizanidine HCl (Tizanidine 4 Mg Tablet) 8 mg PO BID [facility] Last Admin: 12/09/22 20:58 Dose: 8 mg Tramadol HCl (Tramadol 50 Mg Tablet) 50 mg PO Q8HP PRN PRN Reason: pain A/P Time Spent With Patient Time: Total time spent is greater than 50% in coordination of care (as documented) at patient's floor/unit and/or counseling patient: Initial: Total time with patient: 55 - 74 minutes QUALITY VTE Deep Vein Thrombosis/Pulmonary Embolism Present on Admission: No
[2022-12-10] MEDS: SIMVASTATIN 40 MG TABLET PO SCH (20:35)
[2022-12-10] MEDS: DULoxetine 30 MG CAPSULE PO SCH (20:35)
[2022-12-11] MEDS: ACETAMINOPHEN 325 MG TABLET PO PRN (04:56)
[2022-12-11] MEDS: Diclofenac Sodium 1 % gel TOPICAL SCH ×3 (05:02→12:43)
[2022-12-11] MEDS: INSULIN LISPRO 1 UNIT/0.01 ML UNIT SQ SCH ×3 (05:02→12:42)
[2022-12-11] MEDS: 0.9 % SODIUM CHLORIDE 10 ML SYRINGE IV SCH (05:51)
--- NOTE | 2022-12-11 07:16 | Discharge Summary ---
Discharge Provider Provider IMPORTANT FOLLOW-UP INFORMATION FOR PCP: Patient information: Note initiated : 12/11/22 at 7:12 am Service Date, if different from initiated Date: [] Patient: Conchita Dyer 42 y/o F admitted on 12/10/22 for fever. Chief Complaint: [] Date of admission: 12/10/22 07:00 Discharge date: 12/11/22 Primary care physician: Mansi Block Admitting clinician: Eliseo Gerard Attending physician on admission: Eliseo Gerard Consults: 12/08/22 Consult to Physician [CONS] Stat Comment: Consulting Provider: Parveen Harrison Reason For Exam: Physician to Consult Consult to Physician [CONS] Stat Comment: Consulting Provider: Filipe Rayo Reason For Exam: Physician to Consult Attending physician on discharge: Eliseo Gerard COURSE Hospital Course Hospital course: Patient is a 42-year-old female with history of bilateral renal stones, recently underwent right ureteroscopy laser lithotripsy and stent placement for multiple nonobstructive small calyceal stones which was removed on 10/27/2022. Patient is also known to have left renal calculi however she decided not to pursue any treatment after discussion with urology since she did not see any symptomatic improvement in her lower back pain after right ureteral stent placement. This time patient presented with 1 day history of feeling achy, generalized malaise, left flank pain, fever of 103. In ER CT scan showed multiple nonobstructive renal calyceal stones but also a 4 mm left proximal ureteral stone with moderate hydronephrosis. Patient was in sepsis secondary to UTI. Patient was seen in urology consultation. She underwent left ureteral stent placement by urology on 12/08. Urine culture grew E. coli, pansensitive. Blood cultures negative to date. Patient continued to improve, leukocytosis resolved. She remained afebrile. She will now be discharged home on oral cefdinir to complete a 7-day course. She will follow-up with urology as an outpatient. PHYSICAL EXAM General: Alert, no acute distress Eyes/N/T: EOMI, no scleral icterus, PERRL, Head/Neck: neck supple, full ROM, normocephalic atraumatic CV: RRR, No murmurs, normal s1/s2 Pulm: Clear b/l, no wheezing/rhonchi/rales, no respiratory distress Abd: soft, nontender, +BS x4 : Left flank tenderness resolved, no suprapubic tenderness Ext: no clubbing/cyanosis/edema, nontender Neuro: Alert, no focal deficits, moves all extremities, CN 2-12 grossly intact, sensations intact b/l upper/lower Psychiatric: Appropriate mood and affect Skin: warm/dry, normal color Discharge diagnoses *UTI/acute pyelonephritis: Secondary to left proximal ureteral stone obstructing stone. Urine culture with pansensitive E. coli. Received ceftriaxone and transition to cefdinir upon discharge to complete a 7-day course *Sepsis: Presented with tachycardia, fever 102F, leukocytosis and UTI, now resolved *Left hydronephrosis with obstructing UPJ stone: Status post left ureteral stent placement by Dr. Harrison on 12/08. Renal function stable. Follow-up with urology as an outpatient *Metabolic acidosis, NG: Improving *DM2: Last A1c 7.3 in September 2022. On home dose insulin regimen. Monitor BG's *Hyperlipidemia: On rosuvastatin *Depression/anxiety: On duloxetine *Obesity: BMI 36. Counseled on weight reduction and healthy lifestyle changes *Pseudotumor cerebri: On acetazolamide *Migraines: On rizatriptan as needed *Tobacco abuse: Counseled on smoking cessation >10 min Discharge diagnosis: Sepsis, UTI, pyelonephritis, left hydronephrosis Time spent discussing smoking cessation with patient: more than 10 minutes Time Spent with Patient Time attestation: Total time spent providing and/or coordinating discharge services: Time spent: Greater than 30 minutes EXAM Constitutional Vitals: Temp Pulse Resp BP Pulse Ox O2 Del Method O2 Flow Rate 97.3 F 83 16 116/76 96 Room Air 4 12/11/22 04:52 12/11/22 04:52 12/11/22 04:52 12/11/22 04:52 12/11/22 04:52 12/11/22 04:52 12/08/22 20:30 Discharge Data Data Completed and Pending Labs on day of discharge: Labs from last 24 hours 12/10/22 12/10/22 07:28 07:28 WBC 9.6 RBC 3.82 Hgb 11.7 Hct 37.2 MCV 97.4 MCH 30.6 MCHC 31.5 RDW 13.0 Plt Count 240 MPV 10.9 Immature Gran % (Auto) 0.3 Neut % (Auto) 72.5 Lymph % (Auto) 17.9 Wright % (Auto) 8.5 Eos % (Auto) 0.2 Baso % (Auto) 0.6 Lymph # (Auto) 1.71 Wright # (Auto) 0.81 Eos # (Auto) 0.02 Baso # (Auto) 0.06 Immature Gran # 0.03 Absolute Neutrophils 6.92 Sodium 139 Potassium 3.4 Chloride 111 H Carbon Dioxide 15 L Anion Gap 13.0 BUN 17 Creatinine 0.9 GFR Calculation 78 Glucose 110 H Calcium 8.3 L Preliminary micro results at discharge 12/08/22 05:02 Blood Culture - Preliminary Blood 12/08/22 04:56 Blood Culture - Preliminary Blood Discharge Plan Patient/Caregiver Discharge Instructions Activity: resume usual activities as tolerated Diet: Consistent Carbohydrate Instructions: Kidney Stones (GEN), Cystoscopy (GEN) Activity Restrictions/Additional Instructions: Increase activity as tolerated, continue a consistent carbohydrate diet. Dr. Harrison will contact you to schedule a follow up appointment. Prescriptions: New cefdinir 300 mg capsule 300 mg PO BID Qty: 8 0RF Continued rizatriptan 10 mg tablet 10 mg PO QDAY PRN (Reason: migraines) Rx Instructions: as a single dose rosuvastatin 10 mg tablet 10 mg PO QDAY duloxetine 60 mg capsule,delayed release(DR/EC) 60 mg PO HS guaifenesin 600 mg tablet extended release 12hr 600 mg PO BID insulin aspart U-100 [Novolog FlexPen U-100 Insulin] 100 unit/mL (3 mL) insulin pen See Rx Instructions .ROUTE .COMPLEX Protocol: Insulin Sliding Scale, Med Condition: HUMALOG/NOVALOG SC SLIDING Dose/Route: SCALE Condition: FSBS < 70 Dose/Route: Give 4 Oz juice, or 15gm oral Instruction: Glucose, or 25ml D50W IV if Dose/Route: unable to take PO. Recheck in Instruction: 15 min and repeat if FSBS < 70 Condition: FSBS 71-140 Dose/Route: NO COVERAGE Condition: FSBS 141-170 Dose/Route: 2 UNITS Condition: FSBS 171-200 Dose/Route: 4 UNITS Condition: FSBS 201-250 Dose/Route: 6 UNITS Condition: FSBS 251-300 Dose/Route: 8 UNITS Condition: FSBS 301-350 Dose/Route: 10 UNITS Condition: FSBS 351-400 Dose/Route: 12 UNITS Condition: FSBS > 400 Dose/Route: 14 UNITS; REPEAT Q2H X2 Instruction: CONTINUE FOLLOWING SLIDING Condition: SCALE; IF STILL > 400; CALL Dose/Route: PHYSICIAN Rx Instructions: sliding scale 10 to 18 units Lantus Solostar U-100 Insulin 100 unit/mL (3 mL) insulin pen 84 unit SUB-Q QAM acetazolamide 500 MG capsule, extended release 1,000 mg PO BID propranolol 10 MG tablet 20 mg PO BID fluoxetine 20 mg capsule 40 mg PO BID Body, Hair, Skin and Nails 3-133 mg-mcg capsule 2 cap PO QAM loratadine 10 mg Tablet 10 mg PO QAM tizanidine 4 mg Tablet 8 mg PO BID acetaminophen-codeine 300-60 mg Tablet 1 tab PO BID Follow Up Plan Follow up with: Mansi Block PA-C [Primary Care Provider] - (Follow up as needed) Parveen Harrison MD [Physician] - (Dr. Harrison's office will contact you to schedule an appointment.) Patient Disposition: Home, Self-Care Discharge Orders: Discharge Order (Routine); Ordered 12/11/22 Ordered By: Eliseo HEBERT VTE Deep Vein Thrombosis/Pulmonary Embolism Present on Admission: No
[2022-12-11] MEDS: cefTRIAXone 1 GM VIAL IV SCH (08:26)
[2022-12-11] MEDS: guaiFENesin 600 MG TAB.SR.12H PO SCH (08:27)
[2022-12-11] MEDS: DOCUSATE SODIUM 100 MG CAPSULE PO SCH (08:27)
[2022-12-11] MEDS: FLUoxetine HCL 20 MG CAPSULE PO SCH (08:27)
[2022-12-11] MEDS: tiZANidine 4 MG TABLET PO SCH (08:27)
[2022-12-11] MEDS: PROPRANOLOL 10 MG TABLET PO SCH (08:27)
[2022-12-11] MEDS: LORATADINE 10 MG TABLET PO SCH (08:28)
[2022-12-11] MEDS: INSULIN GLARGINE, HUMAN 1 UNIT/0.01 ML SQ SCH (08:28)
[2022-12-11] MEDS: acetaZOLAMIDE 250 MG TABLET PO SCH (10:01)
== END 2022-12-11 13:00 | disposition home or self-care (01) | DRG 872 ==
LOC: MEDSUR 04:00 → ED 04:00 → MEDSUR 10:10
PROVIDERS: ADMIT Internal Medicine; ATTEND Internal Medicine